=== PATIENT | male | born 1940 | race Caucasian/White ===

== ENCOUNTER → 2018-04-05 12:21 | Outpatient (CLI) | payer MEDICARE, SELFPAY ==
[2018-04-05 13:39] LABS: Absolute Lymphocyte Count 1.04 X10^3/ul (0.83-4.51); Absolute Neutrophil Count 4.7 X10^3/uL (2.0-7.7); Basophil# 0.02 X10^3/uL; Basophil% 0.3 % (0-1); Eosinophil# 0.12 X10^3/uL; Eosinophils% 1.9 % (0-5); Hematocrit 46.3 % (40-54); Hemoglobin 15.1 g/dl (13.0-16.5); Lymphocyte # 1.04 X10^3/ul (4.0); Lymphocyte % 16.3 % (19-41); Mean Corp Hgb Conc 32.6 g/gl (32-36); Mean Corpuscular Hgb 28.6 pg (27.0-32.0); Mean Corpuscular Volume 87.7 fL (80-94); Mean Platelet Vol. 9.7 fl (6.2-12.0); Monocyte# 0.45 X10^3/uL; Monocyte% 7.1 % (0-10); Neutrophil # 4.73 X10^3/uL (2.7-7.7); Neutrophil % 74.2 % (47-70); Platelet Count 211 K/mm3 (150-450); RBC Distribution Width CV 13.8 % (11.6-14.6); RBC Distribution Width SD 44.3 fl (35.1-43.9); Red Blood Count 5.28 M/mm3 (4.6-6.2); White Blood Count 6.4 K/mm3 (4.4-11.0)
[2018-04-05 13:41] LABS: POSITIVE COUNT NO; POSITIVE DIFFERENTIAL NO; POSITIVE MORPHOLOGY NO
[2018-04-05 16:22] LABS: AST(SGOT) 25 U/L (15-37); Alanine Aminotransfer ALT/SGPT 29 U/L (16-61); Albumin, Serum 3.6 g/dL (3.2-5.0); Alkaline Phosphatase 76 U/L (45-117); Anion Gap 9 (5-15); BUN 20 mg/dL (7-18); BUN/Creat Ratio 20.9 RATIO (10-20); Calcium,Total 9.2 mg/dL (8.5-10.1); Chloride 105 mmol/L (98-107); Creatinine, Serum 0.96 mg/dL (0.70-1.30); EST Glomerular Filtration Rate 81 mL/min (>60); Est Glom Filt Rate - Afr Amer 98 mL/min (>60); Globulin 3.5 g/dL (2.2-4.2); Glucose 106 mg/dL (74-106); Potassium 4.4 mmol/L (3.5-5.1); Protein, Total 7.1 g/dL (6.4-8.2); Sodium Level 143 mmol/L (136-145); Thyroid Stim Hormone (TSH) 0.35 uIU/mL (0.358-3.74)
== END ==
PROVIDERS: Visit Provider Family Medicine
DX: R60.9 Edema, unspecified (principal)
CPT/HCPCS: 36415; 80053; 84443; 85025

== ENCOUNTER → 2020-07-16 10:03 | Outpatient (CLI) | payer MEDICARE, OTHER, SELFPAY ==
[2020-07-16 12:33] LABS: Hemoglobin A1c 6.1 % (3.8-5.6)
[2020-07-16 12:49] LABS: Anion Gap 5 (5-15); BUN 26 mg/dL (7-18); BUN/Creat Ratio 25.5 RATIO (10-20); Calcium,Total 9.2 mg/dL (8.5-10.1); Chloride 107 mmol/L (98-107); Cholesterol 205 mg/dL (200); Creatinine, Serum 1.02 mg/dL (0.70-1.30); EST Glomerular Filtration Rate 75 mL/min (>60); Est Glom Filt Rate - Afr Amer 91 mL/min (>60); Glucose 113 mg/dL (74-106); High Density Lipoprotein 48 mg/dL; PSA,Total - Annual Screen 2.67 ng/mL (0.00-4.00); Potassium 3.9 mmol/L (3.5-5.1); Sodium Level 141 mmol/L (136-145); Triglycerides 114 mg/dL; Very Low Density Lipoprotein 23 mg/dL (5-40)
== END ==
PROVIDERS: PCP Family Medicine; Referring Provider Family Medicine; Visit Provider Family Medicine
DX: Z00.00 Encounter for general adult medical examination without abnormal findings (principal); Z12.5 Encounter for screening for malignant neoplasm of prostate; R35.8 Other polyuria
CPT/HCPCS: 36415; 80048; 80061; 83036; 84153; G0103

== ENCOUNTER 2021-09-01 14:53 | Outpatient (CLI) | payer MEDICARE, OTHER, SELFPAY ==
[2021-09-01 18:14] LABS: PSA,Total - Annual Screen 2.71 ng/mL (0.00-4.00)
== END 2021-09-01 23:59 | disposition short-term general hospital (02) ==
LOC: MFPLAB 14:57
PROVIDERS: PCP Family Medicine; Visit Provider Nurse Practitioner Family
DX: Z12.5 Encounter for screening for malignant neoplasm of prostate (principal)
CPT/HCPCS: 36415; 84153; G0103

== ENCOUNTER 2021-12-01 06:49 | Day surgery (SDC) | payer MEDICARE, OTHER, SELFPAY ==
--- NOTE | 2021-11-27 08:49 | EKG12_ITS ---
Test Reason : PREOP Blood Pressure : / mmHG Vent. Rate : 080 BPM Atrial Rate : 080 BPM P-R Int : 200 ms QRS Dur : 108 ms QT Int : 388 ms P-R-T Axes : 089 -15 060 degrees QTc Int : 447 ms Normal sinus rhythm Inferior infarct , age undetermined Abnormal ECG Confirmed by JENNIFER ZELAYA, CHELSEA ([id number]), electronic news gathering editor MELYSSA GÓMEZ ([id number]) on 11/28/2021 11:27:30 AM Referred By: Mary Abernathy Confirmed By:CHELSEA RODRIGUEZ MD
[2021-12-01] VITALS (7 sets, daily range): BP systolic 106–170; BP diastolic 45–82; PULSE 75–81; RESP 15–16; TEMP 36.3–37.1; O2SAT 91–96; BMI 39.6
--- NOTE | 2021-12-01 07:00 | HP.PCM_ITS ---
History and Physical Date of Admission: 12/02/21 EULALIO GIRON, is a 81 M who presents to the office today for a colonoscopy. He is having some diarrhea. Is been going on for approximately 3 months. He is not having any chest pain or shortness of breath. He is not have any nocturnal diarrhea. His weight has been stable. He does get some crampy left lower quadrant discomfort associated with tenesmus that has began slightly better but he still having what 8-10 bowel movements per day. Presents today for evaluation for screening colonoscopy. Unable to pursue open access department due to age. Family history of colon cancer in sister. Last screening colonoscopy performed 2015. States that he has a terrible diet, loves [employer]. Three months ago he developed urgent diarrhea about four times a day with yellow/white with excessive gas. This will last for about a week. He will have one very soft BM and then return to diarrhea. With this he will get nausea without emesis. Denies abnormal odor. Has increased intake of sauerkraut and cabbage, fiber supplement, increased vegetable intake, pepto-bismol; without effect. PCP seen and referred to this office without prior workup. Last colonoscopy 5 years prior. He has had polyps removed each time he has had a colonoscopy but does not recall if they were precancer. Family history includes sister with colon cancer causing . PMH includes prediabetes. Surgical history includes cholecystectomy, total L hip replacement and inguinal hernia repair. ROS Const Constitutional: No anorexia, body ache, chills, excessive sweating, fatigue, fever(s), frequent falls, headache(s), decreased energy, malaise, night sweats, snoring, weakness, weight change, sleep problems, abnormal sleep pattern, change in appetite or other ENT ENT: No headache(s), difficulty swallowing, hoarseness or sore throat Resp Respiratory: No snoring Cardio Cardiology: No chest pain at rest or excessive sweating Gastro GI: No abdominal pain, belching, change in stool character, coffee ground emesis, constipation, cramping, heartburn, difficulty swallowing, feeling full early, excessive flatus, incontinent of stools, Vomiting blood/hematemesis, Blood in stool, loose stools, Black,tarry stools, pain with swallowing, vomiting or other Musc Musculoskeletal: No joint pain Skin Skin: No yellowing of the eye or itchy eyes Neuro Neurology: No weakness, frequent falls or headache(s) Psych Psychiatric: No abnormal sleep pattern and No change in appetite Endo Endocrine: No excessive sweating, fatigue or weight change Aller/Imm Allergy/Immunologic: No itchy eyes Nima/Lymp Hematologic/Lymphatic: No easy bleeding or easy bruising Exam Const General: cooperative and comfortable Nutritional Appearance: average body habitus and well nourished [facility] Head: normal to inspection Ears: hearing grossly normal bilaterally Nose: external nose normal Face and sinus: normal facial exam Mouth: oral mucosae normal Throat: posterior oropharynx normal Eyes General: appearance normal, both eyes and all related structures Neck Neck: normal visual inspection Chest Chest palpation & inspection: normal inspection of the chest and normal palpation of entire chest wall Resp Effort & Inspection: normal respiratory effort Auscultation: Bilateral: Clear to Auscultation Cardio Palpation: normal PMI Rate: regular rate Rhythm: regular rhythm GI Inspection: normal to inspection Auscultation: normal bowel sounds Percussion: normal to percussion Palpation: no hepatosplenomegaly Skin General: no rashes or lesions noted Neuro General: patient alert Extrem General: normal to inspection Psych Affect: normal affect Assessment and Plan Assessment and Plan (1) Diarrhea: Status: Acute Plan - Dr. Sandy Friend, DO: The differential diagnosis for his acute was a diarrhea would be infectious colitis, inflammatory bowel disease, Giardia, ova and parasites, C. difficile, microscopic colitis, collagenous colitis. He will undergo colonoscopy evaluate the lower GI tract. He was explained alternatives, risk, benefits including not withstanding bleeding, infection, sepsis, perforation, need for to . He will have an ASA 3. We will check his stools during the colonoscopy. I have re-examined the patient. There are no clinical changes since date of exam.
[2021-12-01] MEDS: Lactated Ringers 1,000 ML 15 ML IV (07:09)
--- NOTE | 2021-12-01 08:00 | COLBX_PTH ---
PATIENT: EULALIO GIRON LOC: EN U#:[id number] AGE/SX: 81/M ROOM: RE12/01/[address]: Dr. Du Neri DO : 1940 BED: DIS: 12/01/2021 SPEC #: [id number] RECD: 12/01/21 12:45 STATUS: AGUILA REIoana #: [id number] SU: 12/01/21 08:[address]: Du Neri DEPT: SURGICAL PATHOLOGY RECD BY: Jia Clemente ENTERED: 12/01/21 13:14 SP TYPE: COLON BX MADISYN DR: Dr. Mary Abernathy MD Tissues: A - Sigmoid colon biopsy B - Ileum, NOS C - COLON BIOPSY D - Transverse colon Procedures: Surgery Specimen Level IV HEADER OPERATION: Colonoscopy (MAC) PRE-OP DIAGNOSIS: Diarrhea TISSUE SUBMITTED: A ? Sigmoid polyp, B ? Terminal random biopsies, C ? Random colonic biopsies, D ? Transverse polyp MICROSCOPIC DIAGNOSIS A. Sigmoid colon polyp, biopsy: Fragments of tubular adenoma. B. Terminal ileum, biopsy: No pathologic change. C. Random colon biopsy: Focal acute colitis. See comment. D. Transverse colon polyp, biopsy: Tubular adenoma. AM:jay 12/02/2021 COMMENT C. Rare crypt abscess is seen. Clinical correlation is suggested. MICROSCOPIC DESCRIPTION Slides are reviewed. GROSS DESCRIPTION A - Received in fixative is one container labeled with the patient's name and designated polyp sigmoid. The specimen consists of a justice-pink polyp measuring 1.5 x 0.6 x 0.3 cm. The specimen is totally submitted in one cassette. B - Received in fixative is one container labeled with the patient's name and designated terminal ileum random biopsy. The specimen consists of multiple irregular fragments of light justice soft tissue that in aggregate measure 2 x 0.3 x 0.1 cm. The specimen is totally submitted in one cassette. C - Received in fixative is one container labeled with the patient's name and designated random colonic biopsy. The specimen consists of multiple irregular fragments of light justice soft tissue that in aggregate measure 1 x 0.5 x 0.1 cm. The specimen is totally submitted in one cassette. D - Received in fixative is one container labeled with the patient's name and designated transverse colon polyp. The specimen consists of one irregular fragment of light justice soft tissue that measures 0.3 x 0.3 x 0.1 cm. The specimen is totally submitted in one cassette. / SJ:rg 12/01/2021 TC:2 CPT: 83733 x4
--- NOTE | 2021-12-01 08:05 | OP.CCLET_ITS ---
05/21/2022 Mary Abernathy [address] [place] [address] Re : Colonoscopy procedure for Luc Gannon Dear Dr. Abernathy This procedure was performed on Wednesday, December 01, 2021. My impressions and recommendations are as follows: Impressions : - Hemorrhoids found on perianal exam. - Diverticulosis in the recto-sigmoid colon and in the sigmoid colon. - Congested mucosa in the sigmoid colon, in the transverse colon and at the hepatic flexure. Biopsied. - Two 1 to 2 mm polyps in the sigmoid colon and in the transverse colon, removed with a hot snare. Resected and retrieved. - Congested mucosa in the terminal ileum. Biopsied. Recommendations : - Discharge patient to home. - Resume previous diet. - Continue present medications. - Await pathology results. - Repeat colonoscopy in 5 years for surveillance based on pathology results. - Return to GI office. My findings are described in the full procedure note, which is enclosed. If I can be of further assistance, please feel free to contact me at . Sincerely, Du Neri DO 12/01/2021 8:04:45 AM This report has been signed electronically.
--- NOTE | 2021-12-01 08:05 | OP.COLON_ITS ---
Patient Name: Luc Gannon Procedure Date: 12/01/2021 7:25 AM Date of : 1940 Age: 81 Procedure: Colonoscopy Indications: Clinically significant diarrhea of unexplained origin, Follow-up for history of adenomatous polyps in the colon Providers: Du Neri DO Referring MD: Mary Abernathy Medicines: See the Anesthesia note for documentation of the administered medications Patient Profile: This is an 81 year old male. Refer to note in patient chart for documentation of history and physical. Last Colonoscopy: several years ago. Complications: No immediate complications. Procedure: Pre-Anesthesia Assessment: - Prior to the procedure, a History and Physical was performed, and patient medications and allergies were reviewed. The patient is competent. The risks and benefits of the procedure and the sedation options and risks were discussed with the patient. All questions were answered and informed consent was obtained. Patient identification and proposed procedure were verified by the physician in the pre-procedure area. Mental Status Examination: alert and oriented. Airway Examination: normal oropharyngeal airway and neck mobility. Respiratory Examination: clear to auscultation. CV Examination: normal. Prophylactic Antibiotics: The patient does not require prophylactic antibiotics. Prior Anticoagulants: The patient has taken no previous anticoagulant or antiplatelet agents. ASA Grade Assessment: II - A patient with mild systemic disease. After reviewing the risks and benefits, the patient was deemed in satisfactory condition to undergo the procedure. The anesthesia plan was to use moderate sedation / analgesia (conscious sedation). Immediately prior to administration of medications, the patient was re-assessed for adequacy to receive sedatives. The heart rate, respiratory rate, oxygen saturations, blood pressure, adequacy of pulmonary ventilation, and response to care were monitored throughout the procedure. The physical status of the patient was re-assessed after the procedure. After I obtained informed consent, the scope was passed under direct vision. Throughout the procedure, the patient's blood pressure, pulse, and oxygen saturations were monitored continuously. The Colonoscope was introduced through the anus and advanced to the terminal ileum. The terminal ileum, ileocecal valve, appendiceal orifice, and rectum were photographed. Moderate Sedation: Moderate (conscious) sedation was administered by the endoscopy nurse and supervised by the endoscopist. The patient's oxygen saturation, heart rate, blood pressure and response to care were monitored. Total physician intraservice time was 15 minutes. Scope In: 7:40:32 AM Scope Withdrawal Time 0 hours 10 minutes 18 seconds Scope Out: 7:58:42 AM Total Procedure Duration Time 0 hours 18 minutes 10 seconds Findings: Hemorrhoids were found on perianal exam. A few small and large-mouthed diverticula were found in the recto-sigmoid colon and sigmoid colon. An area of mildly congested mucosa was found in the sigmoid colon, in the transverse colon and at the hepatic flexure. This was biopsied with a cold forceps for histology. Verification of patient identification for the specimen was done. Estimated blood loss was minimal. Two sessile polyps were found in the sigmoid colon and transverse colon. The polyps were 1 to 2 mm in size. These polyps were removed with a hot snare. Resection and retrieval were complete. Verification of patient identification for the specimen was done. Estimated blood loss was minimal. A patchy area of the terminal ileum was congested. Biopsies were taken with a cold forceps for histology. Verification of patient identification for the specimen was done. Estimated blood loss was minimal. Impression: - Hemorrhoids found on perianal exam. - Diverticulosis in the recto-sigmoid colon and in the sigmoid colon. - Congested mucosa in the sigmoid colon, in the transverse colon and at the hepatic flexure. Biopsied. - Two 1 to 2 mm polyps in the sigmoid colon and in the transverse colon, removed with a hot snare. Resected and retrieved. - Congested mucosa in the terminal ileum. Biopsied. Recommendation: - Discharge patient to home. - Resume previous diet. - Continue present medications. - Await pathology results. - Repeat colonoscopy in 5 years for surveillance based on pathology results. - Return to GI office. Procedure Code(s): --- Professional --- 55588, Colonoscopy, flexible; with removal of tumor(s), polyp(s), or other lesion(s) by snare technique 85573, 59, Colonoscopy, flexible; with biopsy, single or multiple 06560, 59, Moderate sedation services provided by the same physician or other qualified health animal care supervisor performing the diagnostic or therapeutic service that the sedation supports, requiring the presence of an independent trained observer to assist in the monitoring of the patient's level of consciousness and physiological status; initial 15 minutes of intraservice time, patient age 5 years or older CPT copyright 2017 [employer]. All rights reserved. The codes documented in this report are preliminary and upon machine stemmer review may be revised to meet current compliance requirements. Du Neri DO 12/01/2021 8:04:45 AM This report has been signed electronically. Number of Addenda: 1 Note Initiated On: 12/01/2021 7:25 AM Addendum Number: 1 Addendum Date: 05/21/2022 6:42:03 AM MAC was used as sedation for this procedure. Du Neri DO 05/21/2022 6:42:07 AM This report has been signed electronically.
== END 2021-12-01 23:59 | disposition home or self-care (01) ==
LOC: EN 06:49 → AC 06:50
PROVIDERS: PCP Family Medicine; Referring Provider Family Medicine; Visit Provider Internal Medicine Gastroenterology
PROC: 0DJD8ZZ Inspection of Lower Intestinal Tract, Via Natural or Artificial Opening Endoscopic (ICD-10-PCS; CPT 45378; principal; 2021-12-01 07:55)
DX: D12.3 Benign neoplasm of transverse colon (principal); K52.9 Noninfective gastroenteritis and colitis, unspecified; D12.5 Benign neoplasm of sigmoid colon; Z90.49 Acquired absence of other specified parts of digestive tract; K64.9 Unspecified hemorrhoids; K57.30 Diverticulosis of large intestine without perforation or abscess without bleeding
CPT/HCPCS: 45385; 45380; 88305; 93005; J7120; J2405

== ENCOUNTER → 2021-12-15 | Outpatient (CLI) | payer MEDICARE, OTHER, SELFPAY ==
[2021-12-15 15:42] LABS: Absolute Lymphocyte Count 0.92 X10^3/uL (0.83-4.51); Absolute Neutrophil Count 6.9 X10^3/uL (2.0-7.7); Basophil# 0.04 X10^3/uL; Basophil% 0.5 % (0-1); Eosinophil# 0.18 X10^3/uL; Eosinophils% 2.1 % (0-5); Hematocrit 46.9 % (40-54); Hemoglobin 15.1 g/dL (13.0-16.5); Lymphocyte # 0.92 X10^3/ul (0.83-4.51); Lymphocyte % 10.6 % (19-41); Mean Corp Hgb Conc 32.2 g/dL (32-36); Mean Corpuscular Hgb 28.4 pg (27.0-32.0); Mean Corpuscular Volume 88.2 fL (80-94); Mean Platelet Vol. 9.4 fl (6.2-12.0); Monocyte# 0.54 X10^3/uL; Monocyte% 6.2 % (0-10); NRBC Flagged by Analyzer 0 % (0-5); Neutrophil # 6.94 X10^3/uL (2.7-7.7); Neutrophil % 79.9 % (47-70); Platelet Count 250 K/mm3 (150-450); RBC Distribution Width CV 13.2 % (11.6-14.6); RBC Distribution Width SD 42.9 fl (35.1-43.9); Red Blood Count 5.32 M/mm3 (4.6-6.2); White Blood Count 8.7 K/mm3 (4.4-11.0)
[2021-12-15 16:12] LABS: ALB/GLOB Ratio 1.1 RATIO (0.9-2.4); AST(SGOT) 20 U/L (15-37); Alanine Aminotransfer ALT/SGPT 29 U/L (16-61); Albumin, Serum 3.7 g/dL (3.2-5.0); Alkaline Phosphatase 79 U/L (45-117); Anion Gap 4 (5-15); BUN 18 mg/dL (7-18); BUN/Creat Ratio 18.5 RATIO (10-20); CRP 4.62 mg/L (0.0-3.0); Chloride 108 mmol/L (98-107); Creatinine, Serum 0.97 mg/dL (0.70-1.30); EST Glomerular Filtration Rate 79 mL/min (>60); Est Glom Filt Rate - Afr Amer 95 mL/min (>60); Globulin 3.5 g/dL (2.2-4.2); Glucose 112 mg/dL (74-106); LDH 206 U/L (87-241); PSA,Total- Diagnostic 2.84 ng/mL (0.0-4.0); Potassium 3.9 mmol/L (3.5-5.1); Protein, Total 7.2 g/dL (6.4-8.2); Sodium Level 141 mmol/L (136-145)
[2021-12-15 16:45] LABS: Erythrocyte Sedimentation Rate 29 mm/hr (0-20)
[2021-12-17 13:08] LABS: Anti-Centromere B Ab <0.2 AI (0.0-0.9); Anti-Chromatin <0.2 AI (0.0-0.9); Anti-Jo <0.2 AI (0.0-0.9); Anti-Scleroderma-70 AB <0.2 AI (0.0-0.9); RNP Ab <0.2 AI (0.0-0.9); SJOGREN'S Anti-SS-A test < 0.2 AI (0.0-0.9); SJOGREN'S Anti-SS-B test < 0.2 AI (0.0-0.9); Smith Ab <0.2 AI (0.0-0.9)
[2021-12-17 19:25] LABS: Anti-dsDNA Ab <1 IU/mL (0-9)
[2021-12-24 00:06] LABS: Albumin 3.6 g/dL (2.9-4.4); Alpha-1-Globulins 0.3 g/dL (0.0-0.4); Alpha-2-Globulins 0.8 g/dL (0.4-1.0); Cytoplasmic Ab (C-ANCA) <1:20 titer (Neg:<1:20); Endomysial Antibody IgA Negative (Negative); Gamma Globulin 0.9 g/dL (0.4-1.8); Immunoglobulin A 116 mg/dL (61-437); Immunoglobulin E 54 IU/mL (6-495); Immunoglobulin G 821 mg/dL (603-1613); Immunoglobulin M 160 mg/dL (15-143); PROEL- TOTAL PROTEIN 6.5 g/dL (6.0-8.5)
[2021-12-24 09:54] LABS: Perinuclear Ab (P-ANCA) <1:20 titer (Neg:<1:20); t-Transglutaminase IgA <2 U/mL (0-3)
== END | disposition home or self-care (01) ==
PROVIDERS: PCP Family Medicine; Visit Provider Internal Medicine Gastroenterology
DX: R19.7 Diarrhea, unspecified (principal); N13.9 Obstructive and reflux uropathy, unspecified
CPT/HCPCS: 80053; 82784; 82785; 83516; 83615; 84153; 84165; 85025; 85652; 86140; 86225; 86235; 86255; 86256; 86334

== ENCOUNTER → 2021-12-19 | Outpatient (CLI) | payer MEDICARE, OTHER, SELFPAY ==
--- NOTE | 2021-12-19 09:26 | US_ITS ---
EXAM: US PELVIS TRANSABDOMINAL, COMPLETE CLINICAL INDICATION: dysuria and incontinence TECHNIQUE: Real-time complete pelvic ultrasound with image documentation. This report was created using [employer] report generation technology. COMPARISON: None. FINDINGS: PROSTATE: Unremarkable. SEMINAL VESICLES: Not identified due to lack of a sufficient acoustic window. BLADDER: Prostatomegaly, at least 6.8 cm x 6.6 cm x 6.7 cm with mass effect on the inferior urinary bladder. Bilateral ureteral jets are demonstrated in the urinary bladder, evidence against a high-grade ureter obstruction. The urinary bladder is only mildly distended. Calculated prevoid volume 108 cc, post void volume 15 cc. Mildly thick-walled appearance of the anterior bladder, 5.7 mm, possibly due to incomplete distention. US/Post Void Residual Bladder IMPRESSION: Minimal post void bladder residual. Minimal apparent bladder wall thickening. Prostatomegaly. Electronically Signed: Sharyn Storm MD at 6:04 EDT ,
[2021-12-19 10:04] LABS: Bacteria 0 SEEN /hpf (None Seen); Mucous, Urine 0 SEEN /hpf (<or=2+); Squamous Epithelial Cells - UA 0 SEEN /hpf (0-5); White Blood Cells 0 SEEN /hpf (0-5)
[2021-12-19 10:13] LABS: Color, Urine Yellow (Yellow); Glucose, Dipstick Normal (Normal); Ketone-Dipstick Negative (Negative); Leukocyte Esterase-Dipstick Negative /ul (Negative); Nitrite-Dipstick Negative (Negative); Occult Blood-Urine 10 /ul (Negative); Protein-Dipstick 30 mg/dl (Negative); Specific Gravity, Urine 1.025 (1.002-1.030); Urine Bilirubin Dipstick Negative (Negative); Urine Clarity Clear (Clear); Urine Urobilinogen Normal (Normal)
[2021-12-19 10:43] LABS: Red Blood Cells-Urine 0-5 SEEN /hpf (0-5)
[2021-12-24 17:03] LABS: Calprotectin, Stool 23 ug/g (0-120)
== END | disposition home or self-care (01) ==
PROVIDERS: PCP Family Medicine; Referring Provider Internal Medicine Gastroenterology; Visit Provider Internal Medicine Gastroenterology
DX: R30.0 Dysuria (principal); R19.7 Diarrhea, unspecified
CPT/HCPCS: 51798; 81001; 83630; 83993

== ENCOUNTER → 2022-05-20 | Outpatient (CLI) | payer MEDICARE, OTHER, SELFPAY ==
[2022-05-20 17:46] LABS: Anion Gap 5 (5-15); BUN 19 mg/dL (7-18); BUN/Creat Ratio 21.3 RATIO (10-20); Calcium,Total 9.1 mg/dL (8.5-10.1); Chloride 106 mmol/L (98-107); Creatinine, Serum 0.89 mg/dL (0.70-1.30); EST Glomerular Filtration Rate 87 mL/min (>60); Est Glom Filt Rate - Afr Amer 105 mL/min (>60); Glucose 105 mg/dL (74-106); Potassium 3.9 mmol/L (3.5-5.1); Sodium Level 141 mmol/L (136-145)
[2022-05-20 19:17] LABS: BNP,B-Type NATRIURETIC PEPTIDE 447.4 pg/mL (0-100)
== END | disposition home or self-care (01) ==
LOC: MFPLAB 15:28
PROVIDERS: PCP Family Medicine; Referring Provider Family Medicine; Visit Provider Family Medicine
DX: R60.0 Localized edema (principal); I10 Essential (primary) hypertension
CPT/HCPCS: 36415; 80048; 83880

== ENCOUNTER 2022-05-22 10:32 | Emergency (ER) | payer MEDICARE, OTHER, SELFPAY ==
[2022-05-22 10:33] VITALS: BP 159/73; PULSE 71; RESP 18; TEMP 36.2; O2SAT 97; BMI 39.9
--- NOTE | 2022-05-22 11:00 | EDS_ITS ---
HPI History of Present Illness Chief Complaint: Hypertension Informant: patient Onset/Context/Timing Onset: Days Context: Gradual Onset Timing: Continuous Current Severity: Mild Maximum Severity: Mild Narrative Narrative: 81-year-old male recently diagnosed with hypertension and started on lisinopril 10 mg once a day 2 days ago. He took it yesterday and today. 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 Other than being slightly nauseated he said he feels okay. Denies any headache or chest pain. He had a chemistry panel done within the last 2 days it was unremarkable. Normal creatinine. Prior similar symptoms: Yes Recent Illness/Hospitalization: No PFSH PFSH Medical History Abdominal pain Arthritis Back pain Cardiology follow-up encounter Chest pain History of edema History of pain when walking History of rheumatic fever Non-smoker Shortness of breath on exertion Syncope Wears glasses Home Medications latanoprost 0.005 % eye drops 1 drp EACH EYE QPM 11/26/21 [History Last Taken Unknown] meloxicam 7.5 mg tablet (Mobic) 7.5 mg PO DAILY 11/26/21 [History Last Taken Unknown] multivitamin 1 cap PO DAILY 11/26/21 [History Last Taken Unknown] omega-3 fatty acids-vitamin E 1,000 mg capsule 1 cap PO DAILY 11/26/21 [History Last Taken Unknown] doxycycline hyclate 100 mg capsule 100 mg PO BID 30 days #60 caps 02/27/22 [Rx Last Taken Unknown] Allergy/AdvReac Type Severity Reaction Status Date / Time Penicillins Allergy Rash Verified 05/22/22 10:33 Family History Sister Cancer Mother Brain tumor Other Diabetes Myocardial infarction Surgical History Hx of colonoscopy Hx of hernia repair Hx of total hip arthroplasty Social History Smoking Status: Never smoker ROS ROS ED ROS Narrative Mild nausea. Review of Systems ROS Unobtainable: Denies due to encephalopathy Constitutional Constitutional ED: Denies chills or fever(s) Eyes Eyes: Denies blurry vision ENT ENT ED: Denies ear pain Cardiovascular Cardiovascular: Denies chest pain Respiratory/Chest Respiratory/Chest: Denies cough or dyspnea Gastrointestinal Gastrointestinal: Denies abdominal pain Genitourinary Genitourinary ED: Denies dysuria or hematuria Musculoskeletal Musculoskeletal: Denies arthralgias Integumentary Denies abscess Neurologic Neurologic: Denies headache(s) Psychiatric Psychiatric: Denies anxiety Endocrine Endocrinology: Denies cold intolerance Hematologic/Lymphatic Hematologic/Lymphatic: Reports none Allergic/Immunologic Allergic/Immunologic ED: Denies mouth swelling or tongue swelling EXAM Physical Exam Narrative Exam Narrative: 81-year-old male no acute distress. Vital signs stable afebrile. Initial blood pressure 159/73. Pulse ox 97% room air no signs hypoxia. H EENT exam unremarkable. Neck nontender no JVD. Lungs clear to auscultation. Heart regular rhythm rate about 70 no murmur. Abdomen soft nontender normal bowel sounds no peritoneal signs. Moving all 4 extremities. 1+ pitting edema both lower extremities. Patient states that is chronic. Normal motor strength both upper and lower extremities. Neurologically is awake and alert with no focal motor deficits. Const Vital Signs: 05/22/22 10:33 Temperature 97.2 F L Temperature Source Temporal Pulse Rate 71 Respiratory Rate 18 Blood Pressure 159/73 H Blood Pressure Mean 101 Pulse Ox 97 Oxygen Delivery Method Room Air Positive well nourished, well developed and obese; Negative for cachectic, contractures or unkempt General Appearance ED: well developed and NAD; Negative for unkempt, cachectic, contractures, cyanotic or diaphoretic Nutritional Appearance: obese; Negative for cachectic HEENT Reports moist mucous membranes Negative for trauma or tenderness Eyes PERRL and EOMs intact bilaterally General Eye ED: Negative for pale conjunctiva, scleral icterus or other Neck no lymphadenopathy, supple and no JVD General: Negative for tenderness Lymph Lymphatic: Negative for other Chest Wall inspection of chest normal and palpation of chest normal Chest: Negative for other Resp normal respiratory effort and clear to auscultation bilaterally Effort and Inspection: Negative for retractions Auscultation: Negative for rales, rhonchi or wheezes Cardio regular rate, regular rhythm, S1 normal heart sound, S2 normal heart sound and no murmurs Palpation: Negative for palpable S3 Rate: Negative for bradycardia Rhythm: Negative for abnormal rhythm GI normal to inspection, nondistended, normoactive bowel sounds, non-tender, non- distended and no masses Inspection: Negative for abdominal distention Auscultation: normoactive bowel sounds Palpation: Negative for tender Back/Spine no CVA tenderness General Back: Negative for CVA tenderness Cervical Spine: Negative for cervical spine tenderness Thoracic Spine / Upper Back: Negative for thoracic spinal tenderness Lumbar Spine / Lower Back: Negative for lumbar spinal tenderness Extremity Negative for normal to inspection Extremity Narrative: 1+ pitting edema bilaterally. General Extremety ED: Yes edema; Negative for tenderness General Extremity: edema Neuro oriented x3 and CN's II-XII intact bilaterally Sensorium / Orientation: alert; Negative for orientation impaired, lethargic or stuporous Psych mental status grossly normal Appearance: Negative for unkempt Attitude: No agitated Mood & Affect: Negative for depressed or anxious Skin no rashes or lesions noted and no wounds Lesions: No lesion noted Rashes: No rashes noted Trauma: Negative for abrasion Wounds: Negative for wounds noted MDM MDM MDM Narrative Medical decision making narrative: 81-year-old with acute on recently diagnosed hypertension reportedly is on lisinopril 10 mg a day. He will continue that. He may need to have his dose adjusted. He will follow-up with his primary care physician's office and log his blood pressures. I did review his chemistry panel from 2 days ago was unremarkable. He has an echo pending. Discharge Plan Triage Chief Complaint: Hypertension ED Provider: Ajay Vasquez Dx/Rx/DC Orders Clinical Impression: Hypertension, Edema, peripheral Instructions: ED High Blood Pressure Hypertension Prescriptions: No Action doxycycline hyclate 100 mg capsule 100 mg PO BID 30 Days Qty: 60 1RF latanoprost 0.005 % Drops 1 drp EACH EYE QPM meloxicam [Mobic] 7.5 mg Tablet 7.5 mg PO DAILY multivitamin Capsule 1 cap PO DAILY Fish Oil 1,000 mg Capsule 1 cap PO DAILY Primary Care Provider: Mary Abernathy Referrals: Mary Abernathy MD [Primary Care Provider] - 1 Week Activity Restrictions/Additional Instructions: Continue your blood pressure medication lisinopril as prescribed. If possible log your blood pressures twice a day for the next week. Call your primary care physician's office follow-up within next week. Showed him the blood pressures and they can decide if they need to change or adjust her blood pressure medication they may have to change the dose. Follow-up with your cardiology appointment and your echocardiogram. Disposition Disposition: Home, Self Care
[2022-05-22 11:06] VITALS: BP 165/92; O2SAT 94
[2022-05-22 11:30] VITALS: BP 186/90; PULSE 77; RESP 18; O2SAT 98
== END 2022-05-22 11:31 | disposition home or self-care (01) ==
LOC: ED 11:20
PROVIDERS: Emergency Provider Emergency Medicine; PCP Family Medicine; Visit Provider Emergency Medicine
DX: I10 Essential (primary) hypertension (principal); Z79.899 Other long term (current) drug therapy; E66.9 Obesity, unspecified; R60.0 Localized edema; Z68.39 Body mass index [BMI] 39.0-39.9, adult
CPT/HCPCS: 99282

== ENCOUNTER → 2022-05-28 | Outpatient (CLI) | payer MEDICARE, OTHER, SELFPAY ==
--- NOTE | 2022-05-28 13:54 | ECHOCS_ITS ---
Reason For Study: CHF Procedure This was a 2D Doppler, Color Flow transthoracic echocardiogram. Technically difficult study due to patients body habitus. Contrast injection performed. Exam performed in department. Left Ventricle The left ventricle is normal in size, thickness, and systolic function. The left ventricular ejection fraction is 55 %. Diastolic function is indeterminate. Right Ventricle Mildly dilated right ventricle. Mild to moderate global right ventricular systolic dysfunction. Atria The left and right atria are normal. Mitral Valve Trivial mitral valve insufficiency. Tricuspid Valve Normal tricuspid valve. Aortic Valve Normal aortic valve. Pulmonic Valve The pulmonic valve is not well visualized. Great Vessels Normal sized aortic root. Pericardium/Pleural No pericardial effusion. Medication 20 gauge I.V. with prn adaptor inserted into right arm. Diluted definity 3ml given slow IV push to enhance endocardial definition. MMode/2D Measurements & Calculations LVIDd: 5.2 cm IVSd: 0.89 cm Ao root diam: 3.4 cm LVIDs: 3.3 cm LVPWd: 1.1 cm LA dimension: 4.0 cm FS: 36.8 % LAV(MOD-sp4): 69.5 ml LA A4 area: 22.5 cm2 RA A4 area: 18.9 cm2 Time Measurements MV dec time: 0.26 sec Doppler Measurements & Calculations MV E max rashad: 79.3 cm/sec Lat Peak E' Rashad: 5.9 cm/sec Med Peak E' Rashad: 5.4 cm/sec MV A max rashad: 87.1 cm/sec E/E' lat: 13.5 E/E' med: 14.6 MV E/A: 0.91 MV V2 max: 96.9 cm/sec MV P1/2t max rashad: 95.9 cm/sec Ao V2 max: 153.9 cm/sec MV max P.8 mmHg MV P1/2t: 90.4 msec Ao max P.5 mmHg MV V2 mean: 62.1 cm/sec MV dec slope: 310.8 cm/sec2 Ao V2 mean: 110.1 cm/sec MV mean P.7 mmHg Ao mean P.4 mmHg MV V2 VTI: 27.6 cm MVA(P1/2t): 2.4 cm2 Ao V2 VTI: 32.9 cm LV V1 max: 125.0 cm/sec PA V2 max: 100.8 cm/sec LV V1 max P.3 mmHg ECHO/Echo Complete W/ Contrast Interpretation Summary The left ventricular ejection fraction is 55 %. Diastolic function is indeterminate. Mildly dilated right ventricle. Mild to moderate global right ventricular systolic dysfunction. Ordering Physician: Clifton Perales Referring Physician: Clifton Perales Performed By: Dom Roe RCS
== END | disposition home or self-care (01) ==
LOC: CVS 13:52
PROVIDERS: PCP Family Medicine; Referring Provider Family Medicine; Visit Provider Family Medicine
DX: I50.21 Acute systolic (congestive) heart failure (principal)
CPT/HCPCS: 93306; Q9957; A4216; C8929

== ENCOUNTER → 2023-03-23 | Outpatient (CLI) | payer MEDICARE, OTHER, SELFPAY ==
--- NOTE | 2023-03-23 08:55 | RAD_ITS ---
INDICATION: pain EXAMINATION/TECHNIQUE: X-RAY - LEFT XR Knee Complete 4 Views or More COMPARISON: None. FINDINGS: No acute fracture or malalignment. Moderate to severe, lateral compartment predominant, tricompartmental joint space narrowing and osteophytosis. No joint effusion. Soft tissue swelling of the thigh and leg. RAD/Knee 4 or More Views IMPRESSION: No acute abnormalities. Moderate to severe, lateral compartment predominant, tricompartmental degenerative arthrosis of the knee. Electronically Signed: Flaco Hart MD at 19:19 EDT ,
== END | disposition home or self-care (01) ==
LOC: MTRAD 08:50
PROVIDERS: PCP Family Medicine; Referring Provider Family Medicine; Visit Provider Family Medicine
DX: M25.562 Pain in left knee (principal)
CPT/HCPCS: 73564

== ENCOUNTER → 2023-04-09 | Outpatient (CLI) | payer MEDICARE, OTHER, SELFPAY ==
[2023-04-09 15:52] LABS: Hemoglobin A1c 6.2 % (3.8-5.6)
== END | disposition home or self-care (01) ==
LOC: MFPLAB 12:18
PROVIDERS: PCP Family Medicine; Visit Provider Family Medicine
DX: E11.69 Type 2 diabetes mellitus with other specified complication (principal)
CPT/HCPCS: 36415; 83036

== ENCOUNTER → 2023-04-27 | Outpatient (CLI) | payer MEDICARE, OTHER, SELFPAY ==
[2023-04-27 12:51] LABS: Microalbumin,Random Urine 16.9 mg/L (NO RANGE EST.); Microalbumin:Creatinine Ratio 16.1 mg/g CRE (<30 mg/g CRE)
[2023-04-27 13:06] LABS: AST(SGOT) 16 U/L (15-37); Alanine Aminotransfer ALT/SGPT 24 U/L (16-61); Albumin, Serum 3.8 g/dL (3.2-5.0); Alkaline Phosphatase 69 U/L (45-117); Anion Gap 5 (5-15); BUN 27 mg/dL (7-18); BUN/Creat Ratio 28.3 RATIO (10-20); Bilirubin, Direct 0.13 mg/dL (0.00-0.30); Chloride 106 mmol/L (98-107); Cholesterol 213 mg/dL (200); Creatinine, Serum 0.95 mg/dL (0.70-1.30); EST Glomerular Filtration Rate 80 mL/min (>60); Est Glom Filt Rate - Afr Amer 97 mL/min (>60); Globulin 3.5 g/dL (2.2-4.2); Glucose 115 mg/dL (74-106); High Density Lipoprotein 45 mg/dL; Potassium 4.3 mmol/L (3.5-5.1); Protein, Total 7.3 g/dL (6.4-8.2); Sodium Level 138 mmol/L (136-145); Triglycerides 148 mg/dL; Very Low Density Lipoprotein 30 mg/dL (5-40)
== END | disposition home or self-care (01) ==
LOC: MFPLAB 11:06
PROVIDERS: PCP Family Medicine; Visit Provider Family Medicine
DX: E11.69 Type 2 diabetes mellitus with other specified complication (principal)
CPT/HCPCS: 36415; 80048; 80061; 80076; 82043; 82570

== ENCOUNTER 2023-11-29 06:57 | Day surgery (SDC) | payer MEDICARE, OTHER, SELFPAY ==
--- NOTE | 2023-11-19 15:08 | RAD_ITS ---
EXAM: XR CHEST, 2 VIEWS CLINICAL INDICATION: sob TECHNIQUE: Frontal and lateral views of the chest. COMPARISON: No relevant prior studies available. FINDINGS: LUNGS AND PLEURAL SPACES: Unremarkable. No consolidation or edema. No pneumothorax. No effusion. HEART: Unremarkable. Cardiac silhouette not enlarged. MEDIASTINUM: Central airways and mediastinal contour are unremarkable. BONES/JOINTS: Unremarkable. No acute fracture. SOFT TISSUES: Unremarkable. RAD/Chest PA and Lateral IMPRESSION: No radiographic evidence of acute cardiopulmonary disease. Electronically Signed: David Lawler MD at 23:51 EDT ,
[2023-11-19 16:06] LABS: Absolute Lymphocyte Count 1.61 X10^3/uL (0.83-4.51); Absolute Neutrophil Count 8.7 X10^3/uL (2.0-7.7); Basophil# 0.05 X10^3/uL; Basophil% 0.4 % (0-1); Eosinophil# 0.19 X10^3/uL; Eosinophils% 1.6 % (0-5); Hematocrit 44.4 % (40-54); Hemoglobin 14.1 g/dL (13.0-16.5); Lymphocyte # 1.61 X10^3/ul (0.83-4.51); Lymphocyte % 13.9 % (19-41); Mean Corp Hgb Conc 31.8 g/dL (32-36); Mean Corpuscular Hgb 28.3 pg (27.0-32.0); Mean Platelet Vol. 9.5 fl (6.2-12.0); Monocyte# 0.91 X10^3/uL; Monocyte% 7.8 % (0-10); NRBC Flagged by Analyzer 0 % (0-5); Neutrophil # 8.68 X10^3/uL (2.7-7.7); Neutrophil % 74.9 % (47-70); Platelet Count 286 K/mm3 (150-450); RBC Distribution Width CV 13.9 % (11.6-14.6); RBC Distribution Width SD 44.7 fl (35.1-43.9); Red Blood Count 4.99 M/mm3 (4.6-6.2); White Blood Count 11.6 K/mm3 (4.4-11.0)
[2023-11-19 16:35] LABS: Anion Gap 5 (5-15); BUN 32 mg/dL (7-18); BUN/Creat Ratio 30.8 RATIO (10-20); Chloride 107 mmol/L (98-107); Creatinine, Serum 1.04 mg/dL (0.70-1.30); EST Glomerular Filtration Rate 73 mL/min (>60); Est Glom Filt Rate - Afr Amer 88 mL/min (>60); Glucose 105 mg/dL (74-106); Potassium 4.1 mmol/L (3.5-5.1); Sodium Level 143 mmol/L (136-145)
[2023-11-26 07:40] VITALS: BMI 37.6
--- NOTE | 2023-11-29 08:18 | CL.D_ITS ---
Patient Name: EULALIO GIRON Study Date: 11/29/2023 Performing: Obinna Baltazar MD Ht: 71 inches 180.34 cm : 1940 Wt: 270 lbs 122.47 kg Age: 83 Gender: male BSA: 2.4 PROCEDURE(S) PERFORMED DC01-(27887)LHC/COR/LV CLINICAL PROFILE AND INDICATIONS Indications: Suspected CAD Heart Failure: None Stress/Imaging Stress/Image Study Performed: No CAD Presentations: Stable angina. CONCLUSIONS Non obstructive coronary arteries RECOMMENDATIONS Medical therapy DESCRIPTION OF PROCEDURE The patient arrived to the procedure lab. The risks and benefits of the procedure as well as a full description of our services here and current unavailability of surgical backup were fully explained to the patient and/or their significant other prior to the catheterization. The Timeout was completed, verifying the correct patient and procedure. The patient's procedural site was prepped and draped in the usual fashion. Local anesthetic was given subcutaneously to right radial region with Lidocaine 2%. Using a modified Seldinger technique, arterial access was obtained via the right radial artery, a 6Fr sheath was inserted. Right Coronary Artery selective angiography was then performed in multiple views using a 5 Fr. 4.0 Winthrop catheter. Left Coronary Artery selective angiography was performed in multiple views using a 5 Fr. 4.0 Winthrop catheter. Left Ventriculography was performed in STOCKTON projection using a 5 Fr. Pigtail catheter. LV to AO pullback pressures were then recorded.The arterial sheath was pulled and a TR Band was applied for hemostasis. 10cc air CORONARY ANGIOGRAPHY DOMINANCE: Right Dominant LEFT HEART ASSESSMENT Left Ventricular Ejection Fraction: by LV Gram 55 % Normal LV wall motion Normal Left Ventricular systolic function LEFT MAIN: Angiographically normal LEFT ANTERIOR DESCENDING ARTERY: Mild luminal irregularities less than 30% CIRCUMFLEX ARTERY: Mild luminal irregularities RIGHT CORONARY ARTERY: Mild luminal irregularities less than 30% COMPLICATIONS No Complications PROCEDURE MEDICATIONS Fentanyl 50 mcg IV Versed 1 mg IV Versed 1 mg IV Oxygen: 2 L/min via nasal cannula Aspirin (325mg) 1 Tabs PO @ 11/29/2023 07:22:29 Heparin given IA 11/29/2023 08:01:34 Verapamil 2.5mg, Ntg 100mcgs, 3000 units of Heparin given IA 11/29/2023 08:01:34 SUMMARY OF HEMODYNAMIC DATA Time AIR REST ECG 07:22:51 AO 114/55 (80) SA 08:04:21 LV 115/10, 17 08:11:05 LV 112/11, 16 08:11:11 LV 119/10, 22 08:11:55 LVp 118/12, 21 08:11:59 AOp 121/53 (81) 08:12:04 Signed By Obinna Baltazar MD On 11/29/2023 08:17:58 Obinna Baltazar MD
== END 2023-11-29 10:00 | disposition home or self-care (01) ==
PROVIDERS: PCP Family Medicine; Referring Provider Internal Medicine Cardiovascular Disease; Visit Provider Internal Medicine Cardiovascular Disease
DX: R06.02 Shortness of breath (principal); K50.90 Crohn's disease, unspecified, without complications; I20.9 Angina pectoris, unspecified; Z82.49 Family history of ischemic heart disease and other diseases of the circulatory system; R00.2 Palpitations; R55 Syncope and collapse; R07.9 Chest pain, unspecified; I10 Essential (primary) hypertension; R53.83 Other fatigue
CPT/HCPCS: 36415; 71046; 80048; 85025; 93458; 99152; 99153; J7040; Q9967; C1769; C1894

== ENCOUNTER → 2023-12-21 | Outpatient (CLI) | payer MEDICARE, OTHER, SELFPAY ==
[2023-11-29 07:09] VITALS: BMI 37.6
--- NOTE | 2023-12-21 09:49 | ECHOCS_ITS ---
Reason For Study: Dyspnea/SOB Procedure This was a 2D Doppler, Color Flow transthoracic echocardiogram. The study was technically difficult. Contrast injection was performed. Exam performed in department. Left Ventricle Normal left ventricle. Left ventricular systolic function is normal. The left ventricular ejection fraction is 60 %. No regional wall motion abnormalities noted. Right Ventricle Normal RV size. Normal systolic function. Atria Normal left atrium. Normal right atrium. Mitral Valve Normal mitral valve. Tricuspid Valve Normal tricuspid valve. Mild to moderate (1-2+) tricuspid valve insufficiency. Pulmonary artery systolic pressure is 45 mmHg. Aortic Valve The aortic valve is not well visualized. Pulmonic Valve The pulmonic valve is not well visualized. Great Vessels Normal aortic root. The pulmonary artery is normal size. Normal inferior vena cava. Pericardium/Pleural No pericardial effusion. Medication 22 gauge I.V. with prn adaptor inserted into left arm. Diluted definity 2ml given slow IV push to enhance endocardial definition. MMode/2D Measurements & Calculations LVIDd: 5.2 cm IVSd: 1.1 cm Ao root diam: 3.6 cm LVIDs: 3.9 cm LVPWd: 1.0 cm LA dimension: 3.9 cm FS: 25.4 % LAV(MOD-bp): 57.5 ml LA A4 area: 19.6 cm2 RA A4 area: 21.3 cm2 LAV(MOD-bp) Indexed: 24.0 ml/m2 LAV(MOD-sp2): 64.3 ml LAV(MOD-sp4): 50.9 ml TAPSE: 1.6 cm Time Measurements MV dec time: 0.20 sec Doppler Measurements & Calculations MV E max rashad: 99.0 cm/sec Lat Peak E' Rashad: 7.2 cm/sec Med Peak E' Rashad: 4.7 cm/sec MV A max rashad: 82.0 cm/sec E/E' lat: 13.8 E/E' med: 21.2 MV E/A: 1.2 MV V2 max: 108.1 cm/sec MV P1/2t max rashad: 108.1 cm/sec Ao V2 max: 165.9 cm/sec MV max P.7 mmHg MV P1/2t: 70.7 msec Ao max P.0 mmHg MV V2 mean: 59.6 cm/sec MV dec slope: 447.9 cm/sec2 Ao V2 mean: 113.9 cm/sec MV mean P.7 mmHg MVA(P1/2t): 3.1 cm2 Ao mean P.0 mmHg MV V2 VTI: 35.6 cm Ao V2 VTI: 40.0 cm AV (velocity ratio): 0.83 LV V1 max: 132.8 cm/sec PA V2 max: 128.1 cm/sec TR max rashad: 319.8 cm/sec LV V1 max P.1 mmHg PA V2 mean: 86.7 cm/sec TR max P.9 mmHg LV V1 mean P.3 mmHg LV V1 mean: 98.8 cm/sec LV V1 VTI: 33.3 cm ECHO/Echo Complete W/ Contrast Interpretation Summary Normal left ventricle. Left ventricular systolic function is normal. The left ventricular ejection fraction is 60 %. Pulmonary artery systolic pressure is 45 mmHg. Contrast injection was performed. Ordering Physician: Obinna Baltazar Referring Physician: Mary Abernathy M.D. Performed By: Dom Roe RCS
== END | disposition home or self-care (01) ==
PROVIDERS: PCP Family Medicine; Referring Provider Internal Medicine Cardiovascular Disease; Visit Provider Internal Medicine Cardiovascular Disease
DX: R06.02 Shortness of breath (principal)
CPT/HCPCS: 93306; Q9957; A4216; C8929

== ENCOUNTER → 2024-02-08 | Outpatient (CLI) | payer MEDICARE, OTHER, SELFPAY ==
[2024-02-08 12:46] LABS: Erythrocyte Sedimentation Rate 18 mm/hr (0-20)
[2024-02-08 12:48] LABS: Absolute Lymphocyte Count 0.97 X10^3/uL (0.83-4.51); Absolute Neutrophil Count 4.4 X10^3/uL (2.0-7.7); Basophil# 0.04 X10^3/uL; Basophil% 0.6 % (0-1); Eosinophil# 0.22 X10^3/uL; Eosinophils% 3.4 % (0-5); Hematocrit 38.7 % (40-54); Hemoglobin 12.2 g/dL (13.0-16.5); Lymphocyte # 0.97 X10^3/ul (0.83-4.51); Lymphocyte % 15.2 % (19-41); Mean Corp Hgb Conc 31.5 g/dL (32-36); Mean Corpuscular Hgb 28.4 pg (27.0-32.0); Mean Platelet Vol. 10.2 fl (6.2-12.0); Monocyte# 0.71 X10^3/uL; Monocyte% 11.1 % (0-10); NRBC Flagged by Analyzer 0 % (0-5); Neutrophil # 4.43 X10^3/uL (2.7-7.7); Neutrophil % 69.4 % (47-70); Platelet Count 215 K/mm3 (150-450); RBC Distribution Width CV 13.4 % (11.6-14.6); RBC Distribution Width SD 43.7 fl (35.1-43.9); White Blood Count 6.4 K/mm3 (4.4-11.0)
[2024-02-08 13:32] LABS: Anion Gap 7 (5-15); BUN 26 mg/dL (7-18); BUN/Creat Ratio 28.9 RATIO (10-20); Calcium,Total 9.2 mg/dL (8.5-10.1); Chloride 107 mmol/L (98-107); EST Glomerular Filtration Rate 86 mL/min (>60); Est Glom Filt Rate - Afr Amer 104 mL/min (>60); Glucose 138 mg/dL (74-106); Potassium 4.1 mmol/L (3.5-5.1); Sodium Level 142 mmol/L (136-145); Thyroid Stim Hormone (TSH) 0.01 uIU/mL (0.358-3.74)
[2024-02-08 14:22] LABS: Hemoglobin A1c 6.5 % (3.8-5.6)
== END | disposition home or self-care (01) ==
LOC: MFPLAB 10:52
PROVIDERS: PCP Family Medicine; Visit Provider Family Medicine
DX: E11.69 Type 2 diabetes mellitus with other specified complication (principal); M79.10 Myalgia, unspecified site; R60.0 Localized edema
CPT/HCPCS: 36415; 80048; 83036; 84443; 85025; 85652

== ENCOUNTER → 2024-04-13 | Outpatient (CLI) | payer MEDICARE, OTHER, SELFPAY ==
--- NOTE | 2024-04-13 09:46 | US_ITS ---
STUDY: THYROID ULTRASOUND REASON FOR EXAM: Male, 83 years old. THYROMEGALY TECHNIQUE: Ultrasound evaluation of the thyroid was performed with real-time and static fajardo-scale imaging. COMPARISON: None. FINDINGS: RIGHT LOBE: The right lobe of the thyroid gland measures 5.6 x 3.8 x 3.8 cm. There is a heterogeneous echotexture. There are 4 complex nodules in the right thyroid lobe. Nodule 1 in the anterior end lateral mid thyroid lobe is spongiform. This measures 1.46 x 1.03 x 1.19 cm. Nodule 2 in the posterior inferior thyroid pole is mixed isoechoic and hyperechoic. This measures 2.39 x 2.30 x 2.01 cm. Nodule 3 in the right mid thyroid lobe is also spongiform. This measures 1.31 x 0.81 x 1.18 cm. Nodule 4 in the posterior mid thyroid lobe is hypoechoic. This measures 1.22 x 0.77 x 1.12 cm. LEFT LOBE: The left lobe of the thyroid gland measures 10.0 x 3.1 x 4.7 cm. There is a heterogeneous echotexture. There are 3 solid nodules in the left thyroid lobe. Nodule 1 in the mid thyroid lobe is heterogeneous in echogenicity and predominantly hyperechoic. This measures 3.85 x 2.88 x 2.71 cm. Nodule 2 in the mid thyroid lobe is spongiform. This measures 1.72 x 0.92 x 1.8 cm. Nodule 3 in the mid thyroid lobe is also spongiform. This measures 0.82 x 0.60 x 0.82 cm. ISTHMUS: The isthmus measures 0.8 cm. Heterogeneous complex solid ovoid nodule in the thyroid isthmus measuring 4.27 x 2.32 x 3.44 cm.. US/Thyroid IMPRESSION: 1. 4 solid nodules in the right thyroid lobe, 3 solid nodules in the left thyroid lobe and one solid nodule in the thyroid isthmus. 2. Nodule 1 in the right anterior and lateral mid thyroid lobe is spongiform. This measures 1.46 x 1.03 x 1.19 cm. TI-RADS points: 0. TI-RADS category: TR1. This nodule is benign and no FNA or follow-up is necessary. 3. Nodule 2 in the right posterior inferior thyroid lobe is mixed isoechoic and hyperechoic. This measures 2.39 x 2.30 x 3.01 cm. TI-RADS points: 3. TI-RADS category: TR3. This nodule is mildly suspicious. Recommend FNA evaluation. 4. Nodule 3 in the right mid thyroid lobe is spongiform. This measures 1.31 x 0.81 x 1.18 cm. TI-RADS points: 0. TI-RADS category: TR1. This nodule is benign and no FNA or follow-up is necessary. 5. Nodule 4 in the right posterior mid thyroid lobe is hypoechoic. This measures 1.22 x 0.77 x 1.12 cm. TI-RADS points: 4. TI-RADS category: TR4. This nodule is moderately suspicious. Recommend follow-up thyroid ultrasounds at 1, 2, 3 and 5 years. 6. Nodule 1 in the left mid thyroid lobe is heterogeneous in echogenicity but predominantly hyperechoic. This measures 3.85 x 2.88 x 2.71 cm. TI-RADS points: 6. TI-RADS category: TR4. This nodule is moderately suspicious. Recommend FNA evaluation. 7. Nodule 2 in the left mid thyroid lobe is spongiform. This measures 1.72 x 0.92 x 1.8 cm. TI-RADS points: 0. TI-RADS category: TR1. This nodule is benign and no FNA or follow-up is necessary. 8. Nodule 3 in the left mid thyroid lobe is spongiform. This measures 0.82 x 0.60 x 0.8 cm. TI-RADS points: 0. TI-RADS category: TR1. This nodule is benign and no FNA or follow-up is necessary. 9. Complex heterogeneous solid nodule in the thyroid isthmus measures 4.27 x 2.32 x 3.44 cm. TI-RADS points: 4. TI-RADS category: TR4. This nodule is moderately suspicious. Recommend FNA evaluation. Electronically Signed: Parminder Hwang MD at 16:12 EDT ,
== END | disposition home or self-care (01) ==
LOC: US 09:44
PROVIDERS: PCP Family Medicine
DX: E05.90 Thyrotoxicosis, unspecified without thyrotoxic crisis or storm (principal); E01.0 Iodine-deficiency related diffuse (endemic) goiter
CPT/HCPCS: 76536

== ENCOUNTER → 2024-06-07 | Outpatient (CLI) | payer MEDICARE, OTHER, SELFPAY ==
--- NOTE | 2024-06-07 08:00 | FLU_PTH ---
PATIENT: EULALIO GIRON LOC: [facility] U#:[id number] AGE/SX: 83/M ROOM: RE06/07/[address]: Dr. Pedro Segura MD : 1940 BED: DIS: 06/07/2024 SPEC #: [id number] RECD: 06/07/24 12:21 STATUS: AGUILA DILAN #: [id number] SU: 06/07/24 08:[address]: Pedro Segura DEPT: CYTOLOGY RECD BY: Jia Clemente ENTERED: 06/07/24 12:24 SP TYPE: Fluid OTHR DR: Dr. Mary Abernathy MD Tissues: A - Thyroid isthmus B - Thyroid isthmus C - Thyroid gland, NOS D - Thyroid gland, NOS E - Thyroid gland, NOS F - Thyroid gland, NOS Procedures: Special Stain Group II Surgery Specimen Level IV Cytospin Fluid Cytology Other HEADER OPERATION: Fine needle aspiration of thyroid nodules PRE-OP DIAGNOSIS: Thyroid nodules TISSUE SUBMITTED: A- Isthmic nodule fluid, B- Isthmic nodule slides, C- Left mid thyroid fluid, D- Left mid thyroid slides, E- Right posterior mid thyroid nodule fluid, F- Right posterior mid thyroid nodule slides DIAGNOSIS CYTOLOGY A. Isthmic nodule fluid, fine needle aspiration (cytospin and cellblock): Negative for malignant cells. Rare follicular cells and macrophages are noted. See comment. B. Isthmic nodule, fine needle aspiration (smears): Non-diagnostic specimen, [place] Category I. See comment. C. Left mid thyroid fluid, fine needle aspiration (cytospin and cellblock): Negative for malignant cells. See comment. D. Left mid thyroid, fine needle aspiration (smears): Consistent with benign follicular cells colloid nodule with cystic changes, [place] Category II. Adequate for evaluation. E. Right posterior mid thyroid nodule, fine needle aspiration (cytospin and cellblock): Negative for malignant cells. A few clusters of benign follicular cells are noted See comment. F. Right mid thyroid nodule, fine needle aspiration (smears): Non-diagnostic specimen, [place] Category I. 06/08/2024 COMMENT A, B. The specimen is non-diagnostic due to lack of adequate number of follicular cells. C. The specimen consists of macrophages and colloid. E& F. The specimen is non-diagnostic due to lack of adequate number of follicular cells. Correlation with clinical, radiologic findings and appropriate follow up are necessary. CYTOLOGY STUDY Slides are reviewed. CYTOLOGY GROSS A. Received is 30 ml of dark-red fluid labeled with the patient's name and and designated per the requisition as Isthmic nodule fluid. Submitted for cytology preparation including cell block. B. Received are 4 smears labeled with the patient's name and designated per the requisition as Isthmic nodule. Submitted for staining. C. Received is 30 ml of dark-red cloudy fluid labeled with the patient's name and and designated per the requisition as Left mid thyroid fluid. Submitted for cytology preparation including cell block. D. Received are 4 smears labeled with the patient's name and designated per the requisition as Left mid thyroid nodule. Submitted for staining. E. Received is 30 ml of dark-red cloudy fluid labeled with the patient's name and and designated per the requisition as Right posterior mid thyroid nodule. Submitted for cytology preparation including cell block. F. Received are 4 smears labeled with the patient's name and designated per the requisition as Right posterior mid thyroid nodule. Submitted for staining. 06/07/2024 TC:5 CPT: 83014 x6, 45739 x3
== END | disposition home or self-care (01) ==
PROVIDERS: PCP Family Medicine; Referring Provider Surgery; Visit Provider Surgery
DX: E04.2 Nontoxic multinodular goiter (principal)
CPT/HCPCS: 88108; 88161; 88305; 88313

== ENCOUNTER → 2024-06-23 | Outpatient (CLI) | payer MEDICARE, OTHER, SELFPAY ==
[2024-06-23 13:12] LABS: Hemoglobin A1c 6.5 % (3.8-5.6)
[2024-06-23 13:28] LABS: Anion Gap 6 (5-15); BUN 23 mg/dL (7-18); BUN/Creat Ratio 21.5 RATIO (10-20); Calcium,Total 9.5 mg/dL (8.5-10.1); Chloride 108 mmol/L (98-107); Creatinine, Serum 1.07 mg/dL (0.70-1.30); EST Glomerular Filtration Rate 70 mL/min (>60); Est Glom Filt Rate - Afr Amer 85 mL/min (>60); Free T3 2.6 pg/mL (2.18-3.98); Glucose 149 mg/dL (74-106); Potassium 4.8 mmol/L (3.5-5.1); Sodium Level 142 mmol/L (136-145); T4 Free Direct 0.79 ng/dL (0.76-1.46); Thyroid Stim Hormone (TSH) 0.404 uIU/mL (0.358-3.740)
== END | disposition home or self-care (01) ==
LOC: MTLAB 10:34
PROVIDERS: PCP Family Medicine; Referring Provider Nurse Practitioner Adult Health; Visit Provider Nurse Practitioner Adult Health
DX: E05.90 Thyrotoxicosis, unspecified without thyrotoxic crisis or storm (principal); E01.0 Iodine-deficiency related diffuse (endemic) goiter
CPT/HCPCS: 36415; 80048; 83036; 84439; 84443; 84481

== ENCOUNTER → 2024-07-10 | Outpatient (CLI) | payer MEDICARE, OTHER, SELFPAY ==
--- NOTE | 2024-07-10 13:00 | FLU_PTH ---
PATIENT: EULALIO GIRON LOC: [facility] U#:[id number] AGE/SX: 83/M ROOM: RE07/10/[address]: Dr. Pedro Segura MD : 1940 BED: DIS: 07/10/2024 SPEC #: [id number] RECD: 07/11/24 07:35 STATUS: AGUILA DILAN #: [id number] SU: 07/10/24 13:[address]: Pedro Segura DEPT: CYTOLOGY RECD BY: Jai Clemente ENTERED: 07/11/24 10:12 SP TYPE: Fluid OTHR DR: Dr. Mary Abernathy MD Tissues: A - Thyroid gland, NOS B - Thyroid gland, NOS C - Thyroid isthmus D - Thyroid isthmus Procedures: Special Stain Group II Surgery Specimen Level IV Cytospin Fluid Cytology Other HEADER OPERATION: Fine needle aspiration of thyroid nodules PRE-OP DIAGNOSIS: Thyroid nodules TISSUE SUBMITTED: A- Right thyroid nodule fluid, B- Right thyroid nodule slides, C- Isthmic nodule fluid, D- Isthmus nodule slides DIAGNOSIS CYTOLOGY A. Right thyroid nodule fluid, fine needle aspiration (cytospin and cellblock): Consistent with a benign follicular nodule, [place] Category II. B. Right thyroid nodule, fine needle aspiration (smears): Consistent with a benign follicular nodule, [place] Category II. C. Isthmic nodule fluid, fine needle aspiration (cytospin and cellblock): Consistent with a benign follicular nodule, [place] Category II. D. Isthmus nodule, fine needle aspiration (smears): Consistent with a benign follicular nodule, [place] Category II. FA. 07/12/2024 COMMENT Material is adequate for evaluation. No malignant cells are identified. Case has been reviewed in consultation with Dr. Noland who concurs with the above diagnosis. IDC:[facility] CYTOLOGY STUDY Slides are reviewed. CYTOLOGY GROSS A. Received is 30 ml of red-cloudy fluid labeled with the patient's name and and designated per the requisition as Right thyroid nodule. Submitted for cytology preparation including cell block. B. Received are 4 smears labeled with the patient's name and designated per the requisition as Right thyroid nodule. Submitted for staining. C. Received is 20 ml of red-cloudy fluid labeled with the patient's name and and designated per the requisition as Isthmic nodule. Submitted for cytology preparation including cell block. D. Received are 4 smears labeled with the patient's name and designated per the requisition as Isthmic nodule. Submitted for staining. Mr 07/11/2024 TC:? CPT: 84471m1,57148h1
== END | disposition home or self-care (01) ==
LOC: LABSPEC 07-11 08:21
PROVIDERS: PCP Family Medicine; Referring Provider Surgery; Visit Provider Surgery
DX: E04.1 Nontoxic single thyroid nodule (principal)
CPT/HCPCS: 88108; 88161; 88305; 88313

== ENCOUNTER → 2024-11-07 | Outpatient (CLI) | payer MEDICARE, OTHER, SELFPAY ==
--- NOTE | 2024-11-07 10:16 | RAD_ITS ---
EXAM: XR Bilateral Hips With Pelvis When Performed, 2 or 3 Views CLINICAL INDICATION: PAIN TECHNIQUE: Three or four views of the bilateral hips with pelvis when performed. COMPARISON: No relevant prior studies available. FINDINGS: BONES/JOINTS: Left hip replacement. Intact hardware. Anatomic position. Mild degenerative change of the right hip joint. No acute fracture. No dislocation. SOFT TISSUES: Unremarkable. RAD/Hips B/L min 2 views w/ Pelvis IMPRESSION: 1. Postoperative changes as above. 2. Degenerative changes as above. Reading Location: [facility]
== END | disposition home or self-care (01) ==
PROVIDERS: PCP Family Medicine; Referring Provider Family Medicine; Visit Provider Family Medicine
DX: M16.9 Osteoarthritis of hip, unspecified (principal)
CPT/HCPCS: 73521

== ENCOUNTER → 2024-11-24 | Outpatient (CLI) | payer MEDICARE, OTHER, SELFPAY ==
[2024-11-24 18:10] LABS: ALB/GLOB Ratio 1.6 RATIO (0.9-2.4); AST(SGOT) 18 U/L (<=37); Alanine Aminotransfer ALT/SGPT 19 U/L (<=46); Albumin, Serum 4.1 g/dL (3.4-4.8); Alkaline Phosphatase 87 U/L (40-129); Anion Gap 9 (5-15); BUN 43 mg/dL (4-19); BUN/Creat Ratio 32.4 RATIO (10-20); Calcium,Total 9.4 mg/dL (7.6-11.0); Carbon Dioxide 25.2 mmol/L (21.0-32.0); Chloride 106 mmol/L (98-108); Creatinine, Serum 1.31 mg/dL (0.70-1.20); EST Glomerular Filtration Rate 54 (>60); Free T3 2.9 pg/mL (2.18-3.98); Globulin 2.6 g/dL (2.2-4.2); Glucose 125 mg/dL (70-99); Hemoglobin A1c 6.9 % (<=5.6); Potassium 5.1 mmol/L (3.3-5.1); Protein, Total 6.7 g/dL (5.9-8.4); Sodium Level 141 mmol/L (133-145); Thyroid Stim Hormone (TSH) 0.241 uIU/mL (0.300-4.200)
== END | disposition home or self-care (01) ==
LOC: LAB 16:51
PROVIDERS: PCP Family Medicine; Referring Provider Nurse Practitioner Adult Health; Visit Provider Nurse Practitioner Adult Health
DX: E05.90 Thyrotoxicosis, unspecified without thyrotoxic crisis or storm (principal); E01.0 Iodine-deficiency related diffuse (endemic) goiter
CPT/HCPCS: 36415; 80053; 83036; 84439; 84443; 84481

== ENCOUNTER → 2024-12-01 | Outpatient (CLI) | payer MEDICARE, OTHER, SELFPAY ==
--- NOTE | 2024-12-01 15:23 | US_ITS ---
PROCEDURE: TESTICULAR WITH ARTERIAL FLOW 12/01/2024 REASON FOR EXAM: RIGHT SCROTAL SWELLING TECHNIQUE: Samson scale imaging and color and spectral Doppler analysis of the scrotal contents. COMPARISON: None. FINDINGS: RIGHT testicle: 2.6 x 2.3 x 1.1 cm Homogeneous echotexture. No intratesticular mass. No hydrocele or large varicocele. Right epididymis: Unremarkable LEFT testicle: 2.5 x 2.1 x 1.4 cm Homogeneous echotexture. No intratesticular mass. No hydrocele or large varicocele. Left epididymis: Unremarkable DOPPLER FINDINGS: Symmetric color doppler blood flow signal at both testes. Normal arterial inflow and venous outflow waveforms at both testes. US/Testicular with Arterial Flow IMPRESSION: No ultrasound evidence of testicular torsion. No intratesticular mass. Visual ization of the adjacent tissues is limited. If concern for cutaneous/subcutaneous edema or mass, recommend evaluation with foc used ultrasound. Reading Location: [id number]
== END | disposition home or self-care (01) ==
LOC: US 15:23
PROVIDERS: PCP Family Medicine; Referring Provider Family Medicine; Visit Provider Family Medicine
DX: N50.89 Other specified disorders of the male genital organs (principal)
CPT/HCPCS: 76870; 93976

== ENCOUNTER → 2025-01-04 | Outpatient (CLI) | payer MEDICARE, OTHER, SELFPAY ==
[2025-01-04 15:14] LABS: Absolute Lymphocyte Count 0.54 X10^3/uL (0.83-4.51); Absolute Neutrophil Count 9.3 X10^3/uL (2.0-7.7); Basophil# 0.04 X10^3/uL; Basophil% 0.4 % (0-1); Eosinophil# 0.18 X10^3/uL; Eosinophils% 1.6 % (0-5); Hematocrit 35.4 % (40-54); Hemoglobin 11.3 g/dL (13.0-16.5); Lymphocyte # 0.54 X10^3/ul (0.83-4.51); Lymphocyte % 4.9 % (19-41); Mean Corp Hgb Conc 31.9 g/dL (32-36); Mean Corpuscular Hgb 29.3 pg (27.0-32.0); Mean Corpuscular Volume 91.7 fL (80-94); Mean Platelet Vol. 9.4 fl (6.2-12.0); Monocyte# 0.83 X10^3/uL; Monocyte% 7.6 % (0-10); NRBC Flagged by Analyzer 0 % (0-5); Neutrophil # 9.27 X10^3/uL (2.7-7.7); Neutrophil % 84.4 % (47-70); POSITIVE DIFFERENTIAL YES; Platelet Count 282 K/mm3 (150-450); RBC Distribution Width CV 13.4 % (11.6-14.6); RBC Distribution Width SD 45.3 fl (35.1-43.9); Red Blood Count 3.86 M/mm3 (4.6-6.2)
[2025-01-04 16:46] LABS: ALB/GLOB Ratio 1.3 RATIO (0.9-2.4); AST(SGOT) 22 U/L (<=37); Alanine Aminotransfer ALT/SGPT 23 U/L (<=46); Albumin, Serum 3.5 g/dL (3.4-4.8); Alkaline Phosphatase 72 U/L (40-129); Anion Gap 12 (5-15); BUN 43 mg/dL (4-19); BUN/Creat Ratio 38.4 RATIO (10-20); Calcium,Total 9.1 mg/dL (7.6-11.0); Carbon Dioxide 22.6 mmol/L (21.0-32.0); Chloride 102 mmol/L (98-108); Cholesterol 119 mg/dL (<=200); Creatinine, Serum 1.11 mg/dL (0.70-1.20); EST Glomerular Filtration Rate 66 (>60); Globulin 2.8 g/dL (2.2-4.2); Glucose 120 mg/dL (70-99); High Density Lipoprotein 47 mg/dL; Low Density Lipoprotein Calc. 46 mg/dL; Magnesium 2.4 mg/dL (1.5-2.2); Potassium 4.8 mmol/L (3.3-5.1); Protein, Total 6.3 g/dL (5.9-8.4); Sodium Level 137 mmol/L (133-145); Thyroid Stim Hormone (TSH) 0.362 uIU/mL (0.300-4.200); Total Bilirubin 0.45 mg/dL (0.00-1.30); Triglycerides 133 mg/dL; Very Low Density Lipoprotein 27 mg/dL (5-40); Vitamin B12 490 pg/mL (180-914); cholesterol:hdl ratio screen 2.55
[2025-01-05 09:35] LABS: Iron 52 ug/dL (65-175); Iron Binding Capacity,Unsat 179 ug/dL (228-428)
[2025-01-05 10:58] LABS: Iron Binding Capacity,Total 231 ug/dL (250-450); PERCENT IRON SATURATION 22.5 % (9-55)
== END | disposition home or self-care (01) ==
LOC: MFPLAB 12:05
PROVIDERS: PCP Family Medicine; Referring Provider Family Medicine; Visit Provider Family Medicine
DX: E06.3 Autoimmune thyroiditis (principal); R53.83 Other fatigue; E87.5 Hyperkalemia
CPT/HCPCS: 36415; 80053; 80061; 82306; 82607; 83540; 83550; 83735; 84432; 84439; 84443; 85025; 86376; 86800

== ENCOUNTER 2025-01-05 16:34 | Emergency (ER) | payer MEDICARE, OTHER, SELFPAY ==
[2025-01-05 16:35] VITALS: BP 136/57; PULSE 81; RESP 18; TEMP 36.9; O2SAT 95; BMI 39.7
--- NOTE | 2025-01-05 16:39 | ED.VIS.DYS ---
HPI History of Present Illness Chief Complaint: Shortness of Breath [facility] Medical History Thyroid nodule Palpitations Crohn disease Arthritis Back pain Syncope Abdominal pain Shortness of breath on exertion History of pain when walking History of edema Chest pain History of rheumatic fever Home Medications ?Medication ?Instructions ?Recorded ?Last Taken ?Type latanoprost 0.005 % eye drops 1 drp EACH EYE QPM 11/26/21 Unknown History Held on 01/05/25. Instructions: MD Ordered furosemide 20 mg tablet 20 mg PO DAILY #30 tabs 12/23/23 01/05/25 Rx aspirin 81 mg tablet,delayed 81 mg PO BID 06/07/24 01/05/25 History release (Adult Aspirin Regimen) metoprolol succinate 50 mg 50 mg PO DAILY #90 TABLETS 08/18/24 01/05/25 Rx tablet,extended release 24 hr lisinopril 20 mg tablet 20 mg PO DAILY #90 TABLETS 09/12/24 01/04/25 Rx acetaminophen 500 mg tablet 1,000 mg PO Q6H PRN fever or pain 01/05/25 01/05/25 History cholecalciferol (vitamin D3) 25 50 mcg PO DAILY 01/05/25 01/05/25 History mcg (1,000 unit) capsule (Vitamin D3) furosemide 40 mg tablet (Lasix) 40 mg PO DAILY 7 days #7 tabs 01/05/25 Unknown Rx magnesium oxide 400 mg (241.3 mg 400 mg PO TID 01/05/25 01/05/25 History magnesium) tablet meloxicam 7.5 mg tablet 7.5 mg PO BID 01/05/25 01/05/25 History metformin 500 mg tablet,extended 500 mg PO QHS 01/05/25 01/04/25 History release 24 hr rosuvastatin 20 mg tablet 20 mg PO QHS 01/05/25 01/04/25 History tamsulosin 0.4 mg capsule 0.4 mg PO DAILY 01/05/25 01/05/25 History Allergy/AdvReac Type Severity Reaction Status Date / Time Penicillins Allergy Rash Verified 01/05/25 16:34 Family History Sister Cancer Heart disease Mother Brain tumor Father Myocardial infarction Son Heart disease Other Diabetes Surgical History History of cholecystectomy Hx of colonoscopy Hx of total hip arthroplasty Hx of hernia repair Social History Smoking Status: Never smoker alcohol intake: current alcohol intake frequency: holidays/special occasions only EXAM Physical Exam Const Vital Signs: 01/05/25 16:35 01/05/25 17:16 01/05/25 17:16 Temperature 98.4 F Temperature Source Oral Pulse Rate 81 Respiratory Rate 18 Respiratory Effort Short of Breath Respiratory Depth Shallow Respiratory Pattern Tachypnea Blood Pressure 136/57 H Blood Pressure Mean 83 Pulse Ox 95 Oxygen Delivery Method Room Air Room Air 01/05/25 18:27 01/05/25 19:52 01/05/25 20:27 Temperature 98.4 F Temperature Source Pulse Rate 87 70 Respiratory Rate 18 18 Respiratory Effort Respiratory Depth Respiratory Pattern Blood Pressure 124/51 H 135/67 H Blood Pressure Mean 75 89 Pulse Ox 97 95 95 Oxygen Delivery Method Room Air Room Air MDM MDM MDM Narrative Medical decision making narrative: HISTORY OF PRESENT ILLNESS: Chief complaint: Shortness of 84-year-old male history of Crohn disease, hypertension, presents with shortness of breath at physical therapy status post hip replacement. He notes he was on the treadmill for proxy 9 minutes exerted himself vigorously. He notes he became short of breath at the end of this exercise. He notes no shortness of breath associate with his ADLs. He presents to the emergency department primarily concerned about a blood clot. Denies chest pain. Denies bleeding diathesis. Denies unilateral leg swelling. Denies cough fever chills denies history of blood clots. Denies any other PE risk factors other than recent surgery. REVIEW OF SYSTEMS: Pertinent positives: Shortness of breath Pertinent negatives: Cough, chest pain, syncope PHYSICAL EXAM: Nursing triage notes reviewed, Vital signs reviewed Constitutional: please see mdm HENT: MMM Eyes: Pupils equal round and reactive to light, Extraocular muscles intact Neck: No stridor, no JVD, full neck ROM Lungs: Clear to auscultation, No wheezing or rales. No increased work of breathing, no conversational dyspnea, no accessory muscle use, no nasal flaring. No respiratory distress noted Heart: Regular rate and rhythm, No murmurs, No rubs and No gallops, 2+ distal pulses (radial, femoral, posterior tibial) in all extremities Abdomen: Soft, there is no tenderness, rigidity, rebound or guarding, no obvious peritoneal signs, no palpable pulsatile abdominal masses, no auscultated abdominal bruit : No CVAT Extremities: Trace bilateral lower extremity edema. Right hip surgical site appears clean dry intact with no fluctuance, induration, crepitus bullae or significant tenderness to palpation. No palpable warmth. Neuro: No new focal neurological deficits, cranial nerves II through XII intact, 5/5 strength in all present extremities. Intact sensation to light touch in all present extremities, 2+ reflexes bilateral patella tendons. Skin: No rash or lesions noted MEDICAL DECISION MAKING: Chief Complaint: please see HPI External records reviewed: Reviewed prior imaging studies: Reviewed echocardiogram from 2023 which showed ejection fraction 60% Factors affecting care: none Social determinants of health: none History obtained from others: none Consults: none MDM Narrative: Patient was initially hemodynamically stable, nontoxic-appearing. Exam with clear lungs. Patient was saturating well on room air he is in no respiratory distress I considered the following differential diagnosis: PE, anemia, electrolyte abnormality, ACS, arrhythmia I obtained a broad lab and imaging workup to further elucidate etiology of patient's complaints ALL IMAGES (IF OBTAINED) HAVE BEEN PERSONALLY REVIEWED AND INTERPRETED BY MYSELF. CT of the chest shows no evidence of PE or signs of pulmonary edema or heart failure BNP borderline elevated consistent with increased ventricular stretch Ambulatory pulse ox without exertional hypoxia CBC with no leukocytosis, mild anemia, no thrombocytopenia BMP without evidence of significant electrolyte abnormalities, no anion gap, no acute kidney injury. High-sensitivity troponin is negative, no evidence of myocardial ischemia x2 The synthesis of the patient's history, physical exam, labs and images suggest no acute life-limiting etiology. Despite having slightly elevated BNP he had no physical exam evidence of heart failure including no rales, no hypoxia with exertion. His troponin levels were negative and his EKG did not show signs of arrhythmia or myocardial ischemia. In addition to this his CTA of chest showed no evidence of pulmonary edema. He is already on Lasix. I thought it was safe to increase his Lasix from 20 mg to 40 mg and follow-up his primary care physician for outpatient echocardiogram. The patient and/or family, caregivers express understanding. The patient and/or family, caregivers agrees with the plan. Shared decision making: I will have a discussion with the patient and or visitors regarding risk/benefits of further testing or admission. They will be made aware of of the risk/benefits inherent in this decision they will be given the opportunity to voice understanding. Total critical care time today provided was at least 0 minutes. This excludes separately billable procedures. Critical care time (if documented) is secondary to the patient having high probability of clinically significant/life threatening deterioration in the patient's condition which required my urgent intervention. Impression: 1. Dyspnea 2. Status post right hip arthroplasty Dispo: Discharge home This note was generated with [employer] dictation software. It may contain incorrect words, spelling, and punctuation that were not noted in review of the chart prior to signing. Lab Data Labs: Laboratory Results - last 24 hr 01/05/25 01/05/25 17:09 19:20 WBC 9.4 RBC 3.62 L Hgb 10.8 L Hct 32.4 L MCV 89.5 MCH 29.8 MCHC 33.3 RDW Std Deviation 43.9 RDW Coeff of Robert 13.3 Plt Count 252 MPV 8.8 Immature Gran % (Auto) 1.200 H Neut % (Auto) 79.6 H Lymph % (Auto) 7.2 L [place] % (Auto) 9.7 Eos % (Auto) 1.8 Baso % (Auto) 0.5 Absolute Neuts (auto) 7.4 Absolute Lymphs (auto) 0.67 L Nucleated RBC % 0 Sodium 136 Potassium 5.0 Chloride 102 Carbon Dioxide 23.7 Anion Gap 11 BUN 38 H Creatinine 1.07 Estim Creat Clear Calc 71.69 Est GFR (MDRD) Non-Af 69 BUN/Creatinine Ratio 35.6 H Glucose 107 H Calcium 9.1 Troponin T High Sens 37 H Troponin T Hi Sens 2 Hr 35 H NT pro BNP II 1924 H Radiography Diagnostic Testing: Clinical Impression(s) from Imaging Studies Chest CTA 01/05/25 16:50 IMPRESSION: No evidence of pulmonary embolism or acute findings in the thorax. [facility] Dis[facility] Triage Chief Complaint: Shortness of Breath ED Provider: Modesto Carbajal Dx/Rx/DC Orders Clinical Impression: Shortness of breath on exertion Instructions: ED Dyspnea Prescriptions: New furosemide [Lasix] 40 mg tablet 40 mg PO DAILY 7 Days Qty: 7 0RF No Action aspirin [Adult Aspirin Regimen] 81 mg tablet,delayed release (DR/EC) 81 mg PO BID latanoprost 0.005 % Drops 1 drp EACH EYE QPM magnesium oxide 400 mg (241.3 mg magnesium) tablet 400 mg PO TID meloxicam 7.5 mg tablet 7.5 mg PO BID metformin 500 mg tablet extended release 24 hr 500 mg PO QHS rosuvastatin 20 mg tablet 20 mg PO QHS tamsulosin 0.4 mg capsule 0.4 mg PO DAILY cholecalciferol (vitamin D3) [Vitamin D3] 25 mcg (1,000 unit) capsule 50 mcg PO DAILY acetaminophen 500 mg tablet 1,000 mg PO Q6H PRN (Reason: fever or pain) furosemide 20 mg tablet 20 mg PO DAILY Qty: 30 11RF metoprolol succinate 50 mg tablet extended release 24 hr 50 mg PO DAILY Qty: 90 3RF lisinopril 20 mg tablet 20 mg PO DAILY Qty: 90 3RF Primary Care Provider: Dejuan Sanders Referrals: Dejuan Sanders MD [Primary Care Provider] - Activity Restrictions/Additional Instructions: Thank you for trusting us with your care today! Your labs images were reassuring. Specifically your CT scan does not show evidence of a blood clot in the lung. There is no sign of significant electrolyte abnormalities, anemia, pneumonia. The cause your symptoms remains unclear and may be related to deconditioning after surgery. I have increased your Lasix from 20 mg to 40 mg hopefully help with leg swelling. I prescribe a 7-day course of this additional Lasix. Please take 40 mg daily for the next 7 days and follow your primary care physician for outpatient valuation and possible echocardiogram. Please take Tylenol (2 pills, 650 mg), ibuprofen (2 pills, 400 mg) every 6 hours as needed for pain and fever control. Please return to the emergency department if your symptoms change or worsen. Please follow with your primary care physician for further outpatient evaluation and management. Print Language: Slovenian Disposition Disposition: Home, Self Care Discharge Date/Time: 01/05/25 20:34
--- NOTE | 2025-01-05 16:50 | CT_ITS ---
PROCEDURE: CTA CHEST W/WO CONTRAST 01/05/2025 REASON FOR EXAM: SOB, RECENT SURGERY R/O PE TECHNIQUE: CTA axial imaging of the chest with intravenous contrast. Multiplanar and multisequence images were obtained. PATIENT PREPARATION: Per protocol One or more dose reduction techniques were used (e.g., Automated exposure control, adjustment of the mA and/or kV according to patient size, use of iterative reconstruction technique). CONTRAST: Omnipaque 350 VOLUME: 100 mL Not Provided Gauge IV COMPARISON: None FINDINGS: Hardware: None Lymph nodes: Benign granulomatous calcifications. Heart: Normal cardiac size. Mild significant coronary artery calcifications. No pericardial effusion. Thoracic Aorta: Mild atherosclerotic calcification of the thoracic aorta. Normal thoracic aorta caliber Pulmonary Vessels: No large central pulmonary emboli are identified. Contrast timing is suboptimal for evaluation of more distal branches. Most Proximal Level of Embolus (if embolus present): None Lungs and Airways: Central airways are patent without endobronchial lesions. Patchy opacities in the lung base, compatible with scarring and atelectasis. No focal consolidation. No pneumothorax. No pleural effusion. A few scattered calcified granulomas. Upper Abdomen: Visualized portions of the upper abdominal viscera are unremarkable. Bones: Degenerative changes of the thoracic spine. Chest wall or mediastinum. Heterogeneously enlarged multinodular goiter. Chest wall is otherwise unremarkable. CT/CTA Chest W/WO Contrast IMPRESSION: No evidence of pulmonary embolism or acute findings in the thorax. Reading [facility]
--- NOTE | 2025-01-05 16:50 | EKG12_ITS ---
Test Reason : SOB Blood Pressure : */* mmHG Vent. Rate : 77 BPM Atrial Rate : 77 BPM P-R Int : 196 ms QRS Dur : 106 ms QT Int : 412 ms P-R-T Axes : 73 -10 58 degrees QTcB Int : 466 ms Normal sinus rhythm Lateral infarct , age undetermined Cannot rule out Inferior infarct (cited on or before 27-Nov-2021) Abnormal ECG Confirmed by JENNIFER ZELAYA, CHELSEA ([id number]), supervising editor trailer MELYSSA GÓMEZ ([id number]) on 01/08/2025 8:49:03 AM Referred By: Confirmed By: CHELSEA RODRIGUEZ MD
[2025-01-05 17:22] LABS: Absolute Lymphocyte Count 0.67 X10^3/uL (0.83-4.51); Absolute Neutrophil Count 7.4 X10^3/uL (2.0-7.7); Basophil# 0.05 X10^3/uL; Basophil% 0.5 % (0-1); Eosinophil# 0.17 X10^3/uL; Eosinophils% 1.8 % (0-5); Hematocrit 32.4 % (40-54); Hemoglobin 10.8 g/dL (13.0-16.5); Lymphocyte # 0.67 X10^3/ul (0.83-4.51); Lymphocyte % 7.2 % (19-41); Mean Corp Hgb Conc 33.3 g/dL (32-36); Mean Corpuscular Hgb 29.8 pg (27.0-32.0); Mean Corpuscular Volume 89.5 fL (80-94); Mean Platelet Vol. 8.8 fl (6.2-12.0); Monocyte# 0.91 X10^3/uL; Monocyte% 9.7 % (0-10); NRBC Flagged by Analyzer 0 % (0-5); Neutrophil # 7.44 X10^3/uL (2.7-7.7); Neutrophil % 79.6 % (47-70); Platelet Count 252 K/mm3 (150-450); RBC Distribution Width CV 13.3 % (11.6-14.6); RBC Distribution Width SD 43.9 fl (35.1-43.9); Red Blood Count 3.62 M/mm3 (4.6-6.2); White Blood Count 9.4 K/mm3 (4.4-11.0)
[2025-01-05 18:19] LABS: Anion Gap 11 (5-15); BUN 38 mg/dL (4-19); BUN/Creat Ratio 35.6 RATIO (10-20); Calcium,Total 9.1 mg/dL (7.6-11.0); Carbon Dioxide 23.7 mmol/L (21.0-32.0); Chloride 102 mmol/L (98-108); Creatinine, Serum 1.07 mg/dL (0.70-1.20); EST Glomerular Filtration Rate 69 (>60); Estimated Creatinine Clearance 71.69 ml/min (50-250); Glucose 107 mg/dL (70-99); Pro- Brain NATRIURETIC PEPTIDE 1924 pg/mL (<=1800); Sodium Level 136 mmol/L (133-145); Troponin T High Sensitivity 37 ng/L (<=22)
[2025-01-05 18:27] VITALS: BP 124/51; PULSE 87; RESP 18; O2SAT 97
[2025-01-05 19:51] VITALS: O2SAT 96
[2025-01-05 19:52] VITALS: O2SAT 95
[2025-01-05 20:01] LABS: Troponin T High Sens 2 HR 35 ng/L (<=22)
[2025-01-05 20:27] VITALS: BP 135/67; PULSE 70; RESP 18; TEMP 36.9; O2SAT 95
== END 2025-01-05 20:34 | disposition home or self-care (01) ==
PROVIDERS: Emergency Provider Emergency Medicine; PCP Family Medicine; Visit Provider Emergency Medicine
DX: I10 Essential (primary) hypertension (principal); Z90.49 Acquired absence of other specified parts of digestive tract; Z96.649 Presence of unspecified artificial hip joint; Z79.899 Other long term (current) drug therapy; R06.02 Shortness of breath
CPT/HCPCS: 71275; 80048; 83880; 84484; 85025; 93005; 99283; Q9967; A4216

== ENCOUNTER → 2025-01-25 | Outpatient (CLI) | payer MEDICARE, OTHER, SELFPAY ==
[2025-01-25 15:56] LABS: Hemoglobin A1c 6.5 % (<=5.6)
[2025-01-25 15:59] LABS: Pro- Brain NATRIURETIC PEPTIDE 3483 pg/mL (<=1800)
[2025-01-25 17:05] LABS: Microalbumin,Random Urine < 12.0 mg/L (NO RANGE EST.); Microalbumin:Creatinine Ratio UNABLE TO CALCULATE mg/g CRE
== END | disposition home or self-care (01) ==
LOC: MFPLAB 11:53
PROVIDERS: PCP Family Medicine; Referring Provider Family Medicine; Visit Provider Family Medicine
DX: E11.8 Type 2 diabetes mellitus with unspecified complications (principal)
CPT/HCPCS: 36415; 82043; 82570; 83036; 83880

== ENCOUNTER → 2025-02-08 | Outpatient (CLI) | payer MEDICARE, OTHER, SELFPAY ==
--- NOTE | 2025-02-08 07:03 | ECHOCS_ITS ---
Reason For Study : SOB Procedure This was a 2D Doppler, Color Flow transthoracic echocardiogram. The study was technically difficult. Due to body habitus. Contrast injection was performed. Exam performed in department. Left Ventricle Normal LV size. The left ventricular ejection fraction is 55 %. Stage 1 diastolic dysfunction. No regional wall motion abnormalities noted. Right Ventricle Normal RV size. Normal systolic function. Atria Normal left atrium. Normal right atrium. Mitral Valve Normal mitral valve. Tricuspid Valve Normal tricuspid valve. Mild (1+) tricuspid valve insufficiency. Pulmonary artery systolic pressure is 32 mmHg. Aortic Valve Trisinus/trileaflet aortic valve. Pulmonic Valve Normal pulmonic valve. Great Vessels Normal aortic root. Pericardium/Pleural No pericardial effusion. Medication 22 gauge I.V. with prn adaptor inserted into right arm. Diluted definity 3.0ml given slow IV push to enhance endocardial definition. MMode/2D Measurements & Calculations LVIDd: 5.6 cm IVSd: 1.3 cm Ao root diam: 3.6 cm LVIDs: 4.3 cm LVPWd: 1.4 cm RVDd: 4.1 cm FS: 24.3 % asc Aorta Diam: 4.2 cm LAV(MOD-bp): 62.4 ml LVAd ap2: 28.7 cm2 LAV(MOD-bp) Indexed: 26.3 ml/m2 LVLd ap2: 8.5 cm LAV(MOD-sp2): 60.9 ml EDV(MOD-sp2): 82.7 ml LAV(MOD-sp4): 60.8 ml EDV(sp2-el): 82.7 ml LVAs ap2: 17.4 cm2 LVLs ap2: 6.7 cm ESV(MOD-sp2): 37.0 ml ESV(sp2-el): 38.7 ml EF(MOD-sp2): 55.2 % SV(MOD-sp2): 45.7 ml LA A4 area: 20.0 cm2 LA dimension(2D): 4.5 cm SI(MOD-sp2): 19.2 ml/m2 RA A4 area: 16.4 cm2 TAPSE: 2.3 cm Time Measurements MV dec time: 0.23 sec Doppler Measurements & Calculations MV E max rashad: 74.5 cm/sec Lat Peak E' Rashad: 6.6 cm/sec Med Peak E' Rashad: 6.3 cm/sec MV A max rashad: 83.7 cm/sec E/E' lat: 11.4 E/E' med: 11.7 MV E/A: 0.89 MV V2 max: 92.1 cm/sec MV P1/2t max rashad: 91.3 cm/sec Ao V2 max: 157.5 cm/sec MV max P.4 mmHg MV P1/2t: 74.9 msec Ao max P.9 mmHg MV V2 mean: 58.5 cm/sec MV dec slope: 357.4 cm/sec2 Ao V2 mean: 106.6 cm/sec MV mean P.5 mmHg MVA(P1/2t): 2.9 cm2 Ao mean P.1 mmHg MV V2 VTI: 26.8 cm Ao V2 VTI: 33.7 cm AV (velocity ratio): 0.81 LV V1 max: 110.0 cm/sec PA V2 max: 124.0 cm/sec TR max rashad: 225.6 cm/sec LV V1 max P.8 mmHg PA V2 mean: 88.6 cm/sec TR max P.4 mmHg LV V1 mean P.4 mmHg LV V1 mean: 73.3 cm/sec LV V1 VTI: 27.5 cm ECHO/Echo Complete W/ Contrast Interpretation Summary The left ventricular ejection fraction is 55 %. Normal LV size. Stage 1 diastolic dysfunction. Contrast injection was performed. Ordering Physician: Marilyn^Dejuan^Maria Isabel^^ Referring Physician: Dejuan Sanders Performed By: Esther Hanson, RDCS, RVT
--- OUTSIDE RECORDS SUMMARY | 2025-02-08 07:06 | XMS RPT_ITS | CCD ---
Author Organization [facility] Care Team Providers Care Emulsion Coater Name Role Phone Dr. Mayr Abernathy Primary Care Provider Dr. Mary Abernathy Referring Provider Dr. Du Neri Attending Provider 1([facility])[phone] Dr. Obinna Baltazar Attending Provider [phone] FriendDr. Sandy Referring Provider 1([facility]) [phone] Mary Abernathy Primary Care Provider Dr. Mary Abernathy Primary Care Provider Dr. Mary Abernathy Referring Provider Dr. Du Neri Attending Provider Dr. Mary Abernathy Primary Care Provider Dr. Mary Abernathy Referring Provider Dr. Du Neri Attending Provider 1([facility])[phone] Dr. Dhruv Redding Attending Provider Dr. Watson Cat Attending Provider Mary Abernathy Primary Care Provider MARY ABERNATHY Primary Care Unavailable Dr. Mary Abernathy Primary Care Provider Dr. Mary Abernathy Referring Provider Dr. Ming Gonzalez Attending Provider Dr. Obinna Baltazar Attending Provider 1([facility])[phone] Mary Abernathy Primary Care Provider Dr. Mary Abernathy Referring Provider Dr. Ming Gonzalez Attending Provider Dr. Obinna Baltazar Attending Provider Kevin ELECTROCARDIOGRAPH OPERATOR, ELECTROCARDIOGRAPH OPERATOR-C Gisella Attending Provider ERIKA SPANGLER, KP Galaviz Attending Serge ABERNATHY MD, DR DE LA ROSA Primary Care Unavailable JOSEMANUEL ZELAYA, DR DE LA ROSA Primary Care Unavailable ERIKA SPANGLER, KP Galaviz Attending Serge ABERNATHY MD, DR DE LA ROSA Primary Care Unavailable ERIKA PIMENTEL-PRESS TENDER LONG GOODS, KP Galaviz Attending Serge SPANGLER, KP Galaviz Attending Serge ABERNATHY MD, DR DE LA ROSA Primary Care Unavailable JOSEMANUEL ZELAYA, DR DE LA ROSA Primary Care Physician Josemanuel ZELAYA, Dr. Mary Basilio Primary Care Provider Josemanuel ZELAYA, Dr. Mary Basilio Attending Provider Josemanuel ZELAYA, Dr. Mary Basilio Referring Provider Erika ELECTROCARDIOGRAPH OPERATOR-CKp Attending Provider Erika RADER-CKp Referring Provider Marilyn ZELAYA, Dr. Janey Nicolas Primary Care Provider Marilyn ZELAYA, Dr. Janey Nicolas Attending Provider Marilyn ZELAYA, Dr. Janey Nicolas Referring Provider Raven MONTES DE OCA, Dr. Salvador Emergency Provider JOSEMANUEL ZELAYA, DR DE LA ROSA Primary Care Unavailable NERI ZELAYA, DR HERSON Wong Admitting Melita Coley MD, DR HERSON Wong Attending Unavailab jyotsna SANDERS MD, JANEY Hollis Unavailable ASHOK COLE Consulting Matthias HE MD, DR HERSON Wong Attending Unavailab Evelio ZELAYA, DR DE LA ROSA Primary Care Unavailable Dr. Modesto Carbajal DO Attending Provider Janey Sanders Primary Care Unavailable Janey Sanders Referring Unavailable Janey Sanders Attending Unavailable Janey Sanders Referring Unavailable Janey Sanders Attending Unavailable Janey Sanders Primary Care Unavailable Jolliff, Mary S Attending Unavailable Jolliff, Mary S Primary Care Unavailable Jolliff, Mary S Primary Care Unavailable Obinna Baltazar Attending Unavailable Pedro Segura Attending Unavailable Jolliff, Mary S Referring Unavailable Jolliff, Mary S Primary Care Unavailable Pedro Segura Attending Unavailable Jolliff, Mary S Primary Care Unavailable Jolliff, Mary S Referring Unavailable MERRILL, TARIQ Referring Unavailable Jolliff, Mary S Primary Care Unavailable TARIQ MOMIN Attending Unavailable Pedro Segura Referring Unavailable Pedro Segura Attending Unavailable Jolliff, Mary S Primary Care Unavailable Kp James Referring Unavailable Kp James Attending Unavailable Jolliff, Mary S Primary Care Unavailable Modesto Carbajal Attending Unavailable Janey Sanders Primary Care Unavailable Pedro Segura Referring Unavailable Imelda, Pedro Attending Unavailable Jolliff, Mary S Primary Care Unavailable Jolliff, Mary S Primary Care Unavailable Jolliff, Mary S Referring Unavailable Jolliff, Mary S Attending Unavailable Kp James Referring Unavailable Kp James Attending Unavailable Jolliff, Mary S Primary Care Unavailable Jolliff, Mary S Primary Care Unavailable Jolliff, Mary S Referring Unavailable Jolliff, Mary S Attending Unavailable Janey Sanders Referring Unavailable Janey Sanders Attending Unavailable Janey Sanders Primary Care Unavailable Allergies Allergy Classification Reported Allergen(s) Allergy Type Date of Onset Reaction(s) Facility (20 sources) Penicillins; Translations: [PENICILLINS] Allergy to substance 9 Rash [facility] Work Phone: (3 sources) Penicillin; Translations: [penicillin] Drug Allergy Eruption (morphologic abnormality) [facility] [place] Medications Current Medications Medication Drug Class(es) Dates Sig (Normalized) Sig (Original) acetaminophen 500 mg oral tablet (14 sources) Start: 01-05-2025 take 2 tablets by mouth every six hours as needed for pain Acetaminophen 500 mg tablet Active 1000 mg PO EVERY 6 HOURS as needed for fever or pain January 05, 2025 12:00am Start: 12-27-2024 take 1 tablet by aguila th once daily Tylenol Dose : 1,000 mg = 2 tab(s), Oral, TID, not to exceed 3000 mg/day, 0 Refill(s) Start Date: 12/27/24 Status: Ordered Repeat number: 1 Start: 04-03-2024 take 1 mg by mouth e very six hours acetaminophen 500 mg oral capsule mg = cap(s), Oral, q6hr, 0 Refill(s) Start Date: 04/03/24 Status: Ordered Repeat number: 1 Start: 08-20-2023 End: 06-07-2024 take 1 tablet by mouth every six hours Acetaminophen 500 mg tablet Discontinued 500 mg PO EVERY 6 HOURS August 20, 2023 1:00am June 07, 2024 8:19am aspirin 81 mg oral tablet (8 sources) Platelet Aggregation Inhibitor, Nonsteroidal Anti-inflammatory Drug Start: 12-27-2024 End: 01-26-2025 take 1 tablet by mouth twice daily at mealtime aspirin Dose : 81 mg = 1 tab(s), Oral, BIDM, Take 81 mg aspirin twice daily with food for 4 weeks postoperatively for DVT prophylaxis., 0 Refill(s) Start Date: 12/27/24 Stop Date: 01/26/25 Status: Ordered Repeat number: 1 Start: 06-07-2024 take 1 tablet by aguila th twice daily Aspirin (Adult Aspirin Regimen) 81 mg tablet,delayed release (DR/EC) Active 81 mg PO TWICE A DAY June 07, 2024 12:00am Start: 06-07-2024 take 1 tablet by aguila th once daily Aspirin (Adult Aspirin Regimen) 81 mg tablet,delayed release (DR/EC) Active 81 mg PO daily June 07, 2024 12:00am Start: 04-03-2024 aspirin 81 mg oral delayed release tablet Dose : 81 mg = 1 tab(s), Oral, qDay, # 30 tab(s), 0 Refill(s) Start Date: 04/03/24 Status: Ordered benzonatate 100 mg oral capsule (1 source) Non-narcotic Antitussive Start: 09-03-2023 End: 09-10-2023 take 1 capsule by mouth every eight hours as needed benzonatate (TESSALON PERLE) 100 mg capsule Take 1 capsule by mouth three times a day as needed for cough for up to 7 days. 21 capsule 0 09/03/2023 09/10/2023 Active Comment on above: Take 1 capsule by mo uth three times a day as needed for cough for up to 7 days. cholecalciferol 0.025 mg oral capsule (3 sources) Vitamin D Start: 01-05-2025 take 1 capsule by mouth once daily Cholecalciferol (Vitamin D3) (Vitamin D3) 25 mcg (1,000 unit) capsule Active 50 ug PO DAILY January 05, 2025 12:00am docusate sodium 50 mg / sennosides, assisted 8.6 mg oral tablet (1 source) Start: 12-27-2024 End: 12-30-2024 take 1 tablet by mouth twice daily Senokot S 50 mg-8.6 mg oral tablet Dose = 2 tab(s), Oral, BID, Take until first bowel movement, then as needed, X 3 day(s), # 12 tab(s), 0 Refill(s), Pharmacy: [facility]/pharmacy #[id number], 180.3, cm, 12/26/24 10:26:00 EDT, Height, kg, 12/26/24 10:26:00 EDT, Dosing Weight Start Date: 12/27/24 Stop Date: 12/30/24 Status: Ordered Quantity: 12.0 Unit: tab(s) Repeat number: 1 erythromycin 0.005 mg/mg ophthalmic ointment (1 source) Macrolide, Macrolide Antimicrobial Start: 11-30-2024 erythromycin 0.5% ophthalmic ointment APPLY A SMALL AMOUNT INTO LEFT EYE AT BEDTIME Start Date: 11/30/24 Status: Ordered Repeat number: 1 famotidine 20 mg oral tablet (1 source) Histamine-2 Receptor Antagonist Start: 12-27-2024 Pepcid 20 mg oral tablet Dose : 20 mg = 1 tab(s), Oral, qDay, # 30 tab(s), 0 Refill(s), Pharmacy: [facility]/pharmacy #[id number], 180.3, cm, 12/26/24 10:26:00 EDT, Height, kg, 12/26/24 10:26:00 EDT, Dosing Weight Start Date: 12/27/24 Status: Ordered Quantity: 30.0 Unit: tab(s) Repeat number: 1 furosemide 40 mg oral tablet (20 sources) Loop Diuretic Start: 01-05-2025 take 1 tablet by mouth once daily Furosemide (Lasix) 40 mg tablet Active 40 mg PO DAILY 7 January 05, 2025 12:00am Start: 12-23-2023 take 1 tablet by aguila th once daily Furosemide 20 mg tablet Active 20 mg PO DAILY December 23, 2023 4:06pm Start: 11-17-2023 End: 11-19-2023 take 1 tablet by mouth once daily Furosemide 20 mg tablet Discontinued 20 mg PO DAILY November 17, 2023 12:00am November 19, 2023 2:49pm Start: 08-26-2023 furosemide (LA SIX) 20 mg tablet latanoprost 0.05 mg/ml ophthalmic suspension (19 sources) Prostaglandin Analog Start: 04-03-2024 take 1 dose into the eye(s) once daily at bedtime latanoprost 0.005% ophthalmic emulsion Dose = 1 drop(s), Eyes, both, qHS, # 2.5 mL, 0 Refill(s) Start Date: 04/03/24 Status: Ordered Start: 11-26-2021 Latanoprost 0. 005 % Drops Active 1 NMA EACH EYE EVERY EVENING November 26, 2021 12:00am On Hold: Ordered Start: 11-26-2021 Latanoprost Ac tive 1 DRP EACH EYE EVERY EVENING November 26, 2021 12:00am Comment on above: Use 1 Drop in both e yes daily at bedtime. magnesium oxide 400 mg oral tablet (3 sources) Start: 01-05-2025 take 1 tablet by mouth three times daily Magnesium Oxide 400 mg (241.3 mg magnesium) tablet Active 400 mg PO THREE TIMES A DAY January 05, 2025 12:00am meloxicam 7.5 mg oral tablet (20 sources) Nonsteroidal Anti-inflammatory Drug Start: 01-05-2025 take 1 tablet by mouth twice daily Meloxicam 7.5 mg tablet Active 7.5 mg PO TWICE A DAY January 05, 2025 12:00am Start: 12-27-2024 Mobic 7.5 mg o ral tablet Dose : 7.5 mg = 1 tab(s), Oral, BIDM, Do not take any other nonsteroidal anti-inflammatories while on meloxicam/Mobic., # 60 tab(s), 0 Refill(s), Pharmacy: [facility]/pharmacy #[id number], 180.3, cm, 12/26/24 10:26:00 EDT, Height, kg, 12/26/24 10:26:00 EDT, Dosing Weight Start Date: 12/27/24 Status: Ordered Quantity: 60.0 Unit: tab(s) Repeat number: 1 Start: 11-26-2021 End: 07-08-2023 take 1 tablet by mouth once daily Meloxicam (Mobic) 7.5 mg Tablet Discontinued 7.5 mg PO DAILY November 26, 2021 12:00am July 08, 2023 12:38pm 24 hr metFORMIN hydrochloride 500 mg extended release oral tablet (5 sources) Biguanide Start: 01-05-2025 take 1 tablet by mouth every twenty-four hours at bedtime Metformin 500 mg tablet extended release 24 hr Active 500 mg PO AT BEDTIME January 05, 2025 12:00am Start: 11-30-2024 MetFORMIN (Eqv -Glucophage XR) 500 mg oral tablet, EXTENDED RELEASE Dose : 500 mg = 1 tab(s), Oral, qDay, # 90 tab(s), 0 Refill(s) Start Date: 11/30/24 Status: Ordered Quantity: 90.0 Unit: tab(s) Repeat number: 1 Multivitamin preparation (11 sources) Start: 11-26-2021 take 1 capsule by mouth once daily Multivitamin Active 1 CAP PO DAILY November 26, 2021 2:26pm Start: 11-26-2021 take 1 capsule by mo uth once daily Multivitamin Active 1 CAP PO DAILY November 25, 2021 11:00pm Start: 11-26-2021 take 1 capsule by mo uth once daily Multivitamin Active 1 CAP PO DAILY November 26, 2021 12:00am [place]-3 Fatty Acids-Vitamin E (Fish Oil) 1,000 mg Capsule (17 sources) Start: 11-26-2021 take 1 capsule by mouth once daily [place]-3 Fatty Acids-Vitamin E (Fish Oil) 1,000 mg Capsule Active 1 CAP PO DAILY November 26, 2021 2:26pm Start: 11-26-2021 End: 07-08-2023 [place]-3 Fatty Acids-Vitamin E (Fish Oil) 1,000 mg Capsule Discontinued 1 NMA PO DAILY November 26, 2021 12:00am July 08, 2023 12:38pm Start: 11-26-2021 End: 07-08-2023 take 1 capsule by mouth once daily [place]-3 Fatty Acids-Vitamin E (Fish Oil) 1,000 mg Capsule Discontinued 1 CAP PO DAILY November 26, 2021 12:00am July 08, 2023 12:38pm Start: 11-26-2021 take 1 capsule by [facility] once daily [place]-3 Fatty Acids-Vitamin E (Fish Oil) 1,000 mg Capsule Active 1 CAP PO DAILY November 25, 2021 11:00pm Start: 11-26-2021 take 1 capsule by [facility] once daily [place]-3 Fatty Acids-Vitamin E (Fish Oil) 1,000 mg Capsule Active 1 CAP PO DAILY November 26, 2021 12:00am oxyCODONE hydrochloride 5 mg oral tablet (2 sources) Opioid Agonist Start: 12-27-2024 End: 01-03-2025 take 1-2 tablets by mouth every four hours as needed for pain oxyCODONE 5 mg oral tablet ( IMMEDIATE release ) See Instructions, PRN as needed for pain, 1-2 tab(s) Oral q4h, # 42 tab(s), 0 Refill(s), 01/03/25 8:06:00 AM EDT, Pharmacy: [facility]/pharmacy #[id number], S/P total right hip arthroplasty, 180.3, cm, 12/26/24 10:26:00 EDT, Height, 127.8, kg, 12/26/24 10:26:00 EDT, Dosing Weight Start Date: 12/27/24 Stop Date: 01/03/25 Status: Ordered Quantity: 42.0 Unit: tab(s) Repeat number: 1 Indications: Presence of right artificial hip joint; Start: 11-30-2024 oxyCODONE 5 mg oral tablet ( IMMEDIATE release ) Dose : 5 mg = 1 tab(s), Oral, q6h, PRN for pain, # 12 tab(s), 0 Refill(s), 131.9 Start Date: 11/30/24 Status: Ordered Quantity: 12.0 Unit: tab(s) Repeat number: 1 prednisoLONE acetate 10 mg/ml ophthalmic suspension (1 source) Corticosteroid Start: 11-30-2024 take 1 drop(s) into the eye(s) three times daily prednisoLONE acetate 1% ophthalmic suspension INSTILL 1 DROP INTO LEFT EYE THREE TIMES DAILY Start Date: 11/30/24 Status: Ordered Repeat number: 1 rosuvastatin calcium 20 mg oral tablet (5 sources) HMG-CoA Reductase Inhibitor Start: 01-05-2025 take 1 tablet by mouth at bedtime Rosuvastatin 20 mg tablet Active 20 mg PO AT BEDTIME January 05, 2025 12:00am Start: 11-30-2024 rosuvastatin 2 0 mg oral tablet Dose : 20 mg = 1 tab(s), Oral, qDay, # 90 tab(s), 0 Refill(s) Start Date: 11/30/24 Status: Ordered Quantity: 90.0 Unit: tab(s) Repeat number: 1 tamsulosin hydrochloride 0.4 mg oral capsule (3 sources) alpha-Adrenergic Kaylee Start: 01-05-2025 take 1 capsule by mouth once daily Tamsulosin 0.4 mg capsule Active 0.4 mg PO DAILY January 05, 2025 12:00am Vitamin D3 25 mcg (1000 intl units) oral capsule (2 sources) Start: 12-13-2024 Vitamin D3 25 mcg (1000 intl units) oral capsule Dose : 25 mcg = 1 cap(s), Oral, qDay, # 75 cap(s), 0 Refill(s) Start Date: 12/13/24 Status: Ordered Quantity: 75.0 Unit: cap(s) Repeat number: 1 Completed/Discontinued Medications Medication Drug Class(es) Dates Sig (Normalized) Sig (Original) atorvastatin 40 mg oral tablet (15 sources) HMG-CoA Reductase Inhibitor Start: 11-19-2023 End: 01-05-2025 take 1 tablet by mouth once daily Atorvastatin 40 mg tablet Discontinued 40 mg PO DAILY July 17, 2024 1:35pm January 05, 2025 6:16pm doxycycline hyclate 100 mg oral capsule (16 sources) Tetracycline-cla ss Drug Start: 02-27-2022 End: 07-08-2023 take 1 capsule by mouth twice daily Doxycycline Hyclate 100 mg capsule Discontinued 100 mg PO TWICE A DAY 60 February 27, 2022 12:00am July 08, 2023 12:38pm Start: 01-24-2022 End: 01-29-2022 take 1 capsule by mouth twice daily doxycycline monohydrate (MONODOX) 100 mg capsule Indications: Inflamed skin tag Take 1 capsule by mouth twice daily for 5 days. 10 capsule 0 01/24/2022 01/29/2022 Active Comment on above: Take 1 capsule by [facility] twice daily for 5 days. lisinopril 20 mg oral tablet (20 sources) Angiotensin Converting Enzyme Inhibitor Start: End: take 1 tablet by mouth once daily Lisinopril 20 mg tablet Discontinued 20 mg PO DAILY July 17, 2024 1:35pm September 12, 2024 4:25pm Start: 07-14-2022 End: 11-19-2023 take 1 tablet by mouth once daily Lisinopril 10 mg tablet Discontinued 10 mg PO DAILY November 17, 2023 8:28am November 19, 2023 2:51pm Start: 07-14-2022 End: 11-17-2023 Lisinopril 10 mg tablet Disc ontinued NMA PO July 14, 2022 1:00am November 17, 2023 8:28am 24 hr metoprolol succinate 50 mg extended release oral tablet (20 sources) beta-Adrenergic Kaylee Start: 04-03-2024 Metopr olol Succinate ER 50 mg oral TABLET extended release Dose : 50 mg = 1 tab(s), Oral, qDay, # 30 tab(s), 0 Refill(s) Start Date: 04/03/24 Status: Ordered Quantity: 30.0 Unit: tab(s) Repeat number: 1 Start: 11-19-2023 End: 12-27-2024 take 1 tablet by mouth once daily Metoprolol Succinate 50 mg tablet extended release 24 hr Discontinued 50 mg PO DAILY August 18, 2024 10:26am August 18, 2024 10:47am Multivitamin Capsule (6 sources) Start: 11-26-2021 End: 01-05-2025 Multivitamin Capsule Discont inued 1 NMA PO DAILY November 26, 2021 12:00am January 05, 2025 6:12pm Start: 11-26-2021 Multivitamin C apsule Active 1 NMA PO DAILY November 26, 2021 12:00am sucralfate 100 mg/ml oral suspension (12 sources) Aluminum Complex Start: 07-09-2022 End: 07-08-2023 take 1 mL by mouth 2 hour(s) before mealtime Sucralfate 100 mg/mL suspension Discontinued 10 mL PO before meals 999July 09, 2022 1:00am July 08, 2023 12:38pm take two hours after medications and one hour before meals Start: 07-09-2022 End: 07-08-2023 take 1 mL by mouth 2 hour(s) before mealtime Sucralfate Discontinued 10 ML PO before meals 1000 July 09, 2022 1:00am July 08, 2023 12:38pm take two hours after medications and one hour before meals Problems Problem Classification Problem Date Documented Da te Episodic/Chronic Allergic reactions (1 source) Allergy status to penicillin; Translations: [Allergy status to penicillin] Onset: 12-26-2024 Episodic Cardiac dysrhythmias (10 sources) Palpitations; Translations: [Palpitations] 11-17-2023 Episodic Diabetes mellitus with complications (2 sources) Type 2 diabetes mellitus with unspecified complications; Translations: [Type 2 diabetes mellitus with other specified complication] Onset: 02-23-2024 Chronic Diabetes mellitus without complication (5 sources) Diabetes mellitus; Translations: [Type 2 diabetes mellitus without complication] Onset: 12-26-2024 11-30-2024 Chronic Essential hypertension (20 sources) Hypertensive disorder; Translations: [Essential (primary) hypertension] 05-30-2022 Chronic Fluid and electrolyte disorders (3 sources) Hyperkalemia; Translations: [Hyperkalemia] Onset: 12-26-2024 Episodic Genitourinary symptoms and ill-defined conditions (18 sources) Dysuria; Translations: [Dysuria] Episodic Immunity disorders (14 sources) Peyton light chain disease; 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 Not significant for any disease. Neoplasms of unspecified nature or uncertain behavior (15 sources) Monoclonal gammopathy (clinical); Translations: [Monoclonal gammopathy] Chronic Comment on above: M-spike 0 on 022, Immunoglobulins are normal. Noninfectious gastroenteritis (14 sources) Colitis; Translations: [Noninfective gastroenteritis and colitis, unspecified] 05-22-2022 Episodic Nonspecific chest pain (8 sources) Chest pain; Translations: [Chest pain, unspecified] 11-17-2023 Episodic Osteoarthritis (4 sources) Osteoarthritis; Translations: [Unspecified osteoarthritis, unspecified site] Onset: 11-16-2024 Chronic Other acquired deformities (8 sources) Lumbar spondylolisthesis; Translations: [Spondylolisthesis, lumbar region] 10-19-2023 Episodic Other acquired deformities (2 sources) Spondylolisthesis, lumbar region; Translations: [Acquired spondylolisthesis] 10-19-2023 Episodic Other aftercare (1 source) [facility] (current) use of oral hypoglycemic drugs; Translations: [[facility] (current) use of oral hypoglycemic drugs] Onset: 12-26-2024 Episodic Other aftercare (1 source) Other terminal supervisor (current) drug therapy; Translations: [Other residential (current) drug therapy] Onset: 12-26-2024 Episodic Other aftercare (1 source) [facility] (current) use of opiate analgesic; Translations: [emt intermediate (current) use of opiate analgesic] Onset: 12-26-2024 Episodic Other aftercare (1 source) [facility] (current) use of systemic steroids; Translations: [emt intermediate (current) use of systemic steroids] Onset: 12-26-2024 Episodic Other aftercare (1 source) Encounter for therapeutic drug level monitoring; Translations: [Encounter for therapeutic drug level monitoring] Onset: 12-26-2024 Episodic Other connective tissue disease (1 source) Hip joint prosthesis present; Translations: [Presence of right artificial hip joint] Onset: 12-27-2024 Chronic Other connective tissue disease (1 source) Presence of right artificial hip joint; Translations: [Presence of right artificial hip joint] Onset: 12-26-2024 Chronic Other gastrointestinal disorders (17 sources) Diarrhea; Translations: [Diarrhea, unspecified] 05-22-2022 Episodic Other gastrointestinal disorders (5 sources) Diarrhea, unspecified; Translations: [Diarrhea] Episodic Other lower respiratory disease (1 source) Cough; Translations: [Cough] Episodic Other lower respiratory disease (8 sources) Dyspnea on exertion; Translations: [Shortness of breath] 11-17-2023 Episodic Other lower respiratory disease (3 sources) Shortness of breath; Translations: [Shortness of breath] Onset: 01-09-2025 11-19-2023 Episodic Other male genital disorders (1 source) Other specified disorders of the male genital organs; Translations: [Other specified disorders of the male genital organs] Onset: 12-04-2024 Episodic Other nervous system disorders (8 sources) Spinal cord disease; Translations: [Disease of spinal cord, unspecified] 08-26-2023 Chronic Other nervous system disorders (1 source) Disease of spinal cord, unspecified; Translations: [Unspecified disease of spinal cord] 08-26-2023 Chronic Other skin disorders (1 source) Skin tag; Translations: [Other hypertrophic disorders of the skin] Episodic Regional enteritis and ulcerative colitis (17 sources) Crohn's disease; Translations: [Crohn's disease, unspecified, without complications] Chronic Residual codes; unclassified (14 sources) Peripheral edema; Translations: [Edema, unspecified] 05-30-2022 Episodic Residual codes; unclassified (8 sources) History of clinical finding in subject; Translations: [Personal history of other specified conditions] 11-17-2023 Episodic Spondylosis; intervertebral disc disorders; other back problems (9 sources) Degeneration of lumbar intervertebral disc; Translations: [Other intervertebral disc degeneration, lumbar region] 08-26-2023 Chronic Spondylosis; intervertebral disc disorders; other back problems (18 sources) Lumbar disc prolapse with radiculopathy; Translations: [Intervertebral disc disorders with radiculopathy, lumbar region] 10-19-2023 Episodic Syncope (8 sources) Syncope; Translations: [Syncope and collapse] 11-17-2023 Episodic Thyroid disorders (20 sources) Hyperthyroidism; Translations: [Thyroid nodule] Onset: 06-29-2024 04-03-2024 Chronic Comment on above: Patient is an 83-yea r-old male with recent diagnosis of hyperthyroidism and incidentally found to have multiple thyroid nodules as well as thyromegaly. By history I am not convinced he suffers from any compressive symptoms. His ultrasound was read by radiology in detail to include information on 8 separate thyroid nodules. I recommended biopsy of 3 of those nodules based on their size and TI-RADS rating. Mr. Gannon had many questions related to not only the process of triaging thyroid nodules but also the implications of biopsy results. I attempted to entertain these questions while encouraging him to not draw any conclusions on the basis of our very limited information to this point. Mr. Gannon appeared to express not only understanding but appreciation for the extra detail. He provided consent to proceed with the procedure and complete details are given in the procedures section of this note.Update 07/10/2024: Patient presents for repeat FNA of right and isthmic thyroid nodules after nondiagnostic results on FNA biopsy last month. Procedure was undertaken in uncomplicated fashion during today's visit. Postprocedural wound care instructions were discussed. Will plan to telephone patient with results once they are given. Will also update patient if he requires further genetic testing based on cytopathology. Results Test Name Value Interpretation Reference Range Facility Hemoglobin A1con 01-25-2025 HbA1c (Bld) [Mass fraction] 6.5 % High <=5.6 [facility] Comment on above: Order Comment: Order Date: 01/25/25Order Info: [id number] - A1C Result Comment: Norm al < 5.7 % Prediabetic 5.7 - 6.4 % Diabetic >or= 6.5 % Please note range changes. Performed By: #### L 501.9985, L500.2500, L501.9520, L100.0100, L101.9900 #### [facility] Laboratory [address] [place], [place], [id number] Hemoglobin A1c percentageOrd ered By: Janey Sanders on 01-25-2025 HbA1c (Bld) [Mass fraction] 6.5 % High <5.7 [facility] Comment on above: Normal < 5.7 % Predi abetic 5.7 - 6.4 % Diabetic >or= 6.5 % Please note range changes. L503.7505on 01-25-2025 Natriuretic peptide B (Bld) [Mass/Vol] 3483 pg/mL High <=1800 [facility] Comment on above: Result Comment: Hear t Failure Unlikely: < 300 pg/mL Heart Failure Likely < 50 Years: > 450 pg/mL 50-75 Years: > 900 pg/mL >75 Years: > 1800 pg/mL Performed By: #### L 501.9985, L500.2500, L501.9520, L100.0100, L101.9900 #### [facility] [address] [place], [place], [id number] Microalb:Creat Ratio,Random URon 01-25-2025 Creatinine [Mass/Vol] 64.00 mg/dL Normal 39.00- 259.0 0 [facility] Comment on above: Order Comment: Order Date: 01/25/25Order Info: [id number] - MIALB Performed By: #### L 501.9985, L500.2500, L501.9520, L100.0100, L101.9900 #### [facility] [address] [place], [address] MALB:CREAT UNABLE TO CALCULATE Normal [facility] Comment on above: Order Comment: Order Date: 01/25/25Order Info: [id number] - MIALB Performed By: #### L 501.9985, L500.2500, L501.9520, L100.0100, L101.9900 #### [facility] [address] [place], [place], [id number] MICROALBUMIN,UR < 12.0 Normal NO RANGE EST. [facility] Comment on above: Order Comment: Order Date: 01/25/25Order Info: [id number] - MIALB Performed By: #### L 501.9985, L500.2500, L501.9520, L100.0100, L101.9900 #### [facility] [address] [place], [place], [id number] Microalbumin/creat ratio urO rdered By: Janey Sanders on 01-25-2025 Urine microalbumin/creatinine ratio measurement UNABLE TO CALCULATE mg/g CRE [facility] Natriuretic peptide.B prohor carmela N-Terminal [Mass/volume] in Serum or PlasmaOrdered By: Janey Sanders on 01-25-2025 Natriuretic peptide.B prohormone N-Terminal [Mass/Vol] 3483 pg/mL High <1800 [facility] Comment on above: Heart Failure Unlike ly: < 300 pg/mLHeart Failure Likely< 50 Years: > 450 pg/mL50-75 Years: > 900 pg/mL>75 Years: > 1800 pg/mL Random urine creatinine andrez urement (mass/volume)Ordered By: Janey Sanders on 01-25-2025 Creatinine Unsp time (U) [Mass/Vol] 64.00 mg/dL 39.00-259.0 0 [facility] Urine albumin measurement wi detection limit of 20 mg/L or less (mass/volume)Ordered By: Janey Sanders on 01-25-2025 Albumin DL <= 20 mg/L (U) [Mass/Vol] < 12.0 mg/L NO RANGE EST. [facility] Thyroglobulin w/Anti-TG ABon 01-10-2025 Anti-TG AB < 1.0 Normal 0.0-0.9 [facility] Comment on above: Result Comment: Thyr oglobulin Antibody measured by [employer] Methodology It should be noted that the presence of thyroglobulin antibodies may not be pathogenic nor diagnostic, especially at very low levels. The assay dial printer has found that four percent of individuals without evidence of thyroid disease or autoimmunity will have positive TgAb levels up to 4 IU/mL. Performed By: #### L 501.9985, L500.2500, L501.9520, L100.0100, L101.9900 #### [facility] [address] [place], [place], [id number] THYROGLOB QUANT 196.9 ng/mL High 1.4-29.2 [facility] Comment on above: Result Comment: Acco rding to the National Academy of Clinical Biochemistry, the reference interval for Thyroglobulin (TG) should be related to euthyroid patients and not for patients who underwent thyroidectomy. TG reference intervals for these patients depend on the residual mass of the thyroid tissue left after surgery. Establishing a post-operative baseline is recommended. The assay limit of quantitation is 0.1 ng/mL Thyroglobulin measured by [employer] Performed By: #### L 501.9985, L500.2500, L501.9520, L100.0100, L101.9900 #### [facility] [address] [place], [place], [id number] Thyroid Peroxidase ABon 05- THYR PEROX AB 23 IU/mL Normal 0-34 [facility] Comment on above: Result Comment: Perf ormed at: - [facility] [place] [id number] [place], [place] [id number] Soldering Technician: Apollo Mcgill PhD, Phone: [phone] Performed By: #### L 501.6533, L500.3117, L512.2254, L100.0100, L101.9900 #### [facility] [address] [facility] [place], [place], [address] 12 Lead EKGon 01-05-2025 12 Lead EKG [facility] [address] [place] [address] 12 Lead EKG 01/05/25 1707 MR#: [id number] Acct: [id number] Name: LCU GANNON Rep #: [id number] : 1940 84 From: Obinna Baltazar MD Attending Dr: Status: DEP ER Ordering Dr: Modesto Carbajal DO Date: 01/05/25 Location: ED Sex: M C Admitted: Test Reason : SOB Blood Pressure : */* mmHG Vent. Rate : 77 BPM Atrial Rate : 77 BPM P-R Int : 196 ms QRS Dur : 106 ms QT Int : 412 ms P-R-T Axes : 73 -10 58 degrees QTcB Int : 466 ms Normal sinus rhythm Lateral infarct , age undetermined Cannot rule out Inferior infarct (cited on or before 27-Nov-2021) Abnormal ECG Confirmed by OBINNA BALTAZAR MD ([id number]), general expeditor MELYSSA GÓMEZ ([id number]) on 01/08/2025 8:49:03 AM Referred By: Confirmed By: OBINNA BALTAZAR MD 01/08/25 0849 Date Obinna Baltazar MD CC: Dr. Janey Sanders MD; Dr. Modesto Carbajal DO Signed Normal [facility] Absolute lymphocyte countOrd ered By: Modesto Carbajal on 01-05-2025 Lymphocytes Auto (Unsp spec) [#/Vol] 0.67 10*3/uL Low 0.83-4.51 [facility] Absolute neutrophil countOrd ered By: Modesto Carbajal on 01-05-2025 Neutrophils (Bld) [#/Vol] 7.4 10*3/uL 2.0-7.7 [facility] Anion gap in Serum or Plasma Ordered By: Modesto Carbajal on 01-05-2025 Anion gap [Moles/Vol] 11 mmol/L 5-15 [facility] Automated lymphocyte count a s percentage of total leukocytesOrdered By: Modesto Carbajal on 01-05-2025 Lymphocytes/100 WBC Auto (Unsp spec) 7.2 % Low 19-41 [facility] BUN/creatinine ratioOrdered By: Modesto Carbajal on 01-05-2025 Urea nitrogen/Creatinine [Mass ratio] 35.6 mg/mg High 10-20 [facility] Basic Metabolic Profile (BMP )on 01-05-2025 BUN/CRE 35.6 RATIO High 10- [facility] Comment on above: Performed By: #### L 501.9985, L500.2500, L501.9520, L100.0100, L101.9900 #### [facility] Laboratory [address] [place], [address] Calcium [Mass/Vol] 9.1 mg/dL Normal 7.6-11.0 [place] Comment on above: Performed By: #### L 501.9985, L500.2500, L501.9520, L100.0100, L101.9900 #### [facility] Laboratory [address] [place], [address] Chloride [Moles/Vol] 102 mmol/L Normal 98-108 [facility] Comment on above: Performed By: #### L 501.9985, L500.2500, L501.9520, L100.0100, L101.9900 #### [facility] [address] [place], [address] CO2 [Moles/Vol] 23.7 mmol/L Normal 21.0-32.0 [facility] Comment on above: Performed By: #### L 501.9985, L500.2500, L501.9520, L100.0100, L101.9900 #### [facility] [address] [place], [address] Creatinine [Mass/Vol] 1.07 mg/dL Normal 0.70-1.20 [facility] Comment on above: Performed By: #### L 501.9985, L500.2500, L501.9520, L100.0100, L101.9900 #### [facility] [address] [place], [address] ECRCL 71.69 ml/min Normal 50-250 [facility] Comment on above: Performed By: #### L 501.9985, L500.2500, L501.9520, L100.0100, L101.9900 #### [facility] [address] [place], [address] GAP 11 Normal 5-15 [facility] Comment on above: Performed By: #### L 501.9985, L500.2500, L501.9520, L100.0100, L101.9900 #### [facility] [address] [place], [address] GFR/1.73 sq M.predicted among non-blacks MDRD (S/P/Bld) [Vol rate/Area] 69 mL/min/{1.73_m2} Normal >60 [facility] Comment on above: Result Comment: mL/m in/1.73m2 CKD-EPI Creatinine Equation (2020) Performed By: #### L 501.9985, L500.2500, L501.9520, L100.0100, L101.9900 #### [facility] [address] [place], [address] Glucose [Mass/Vol] 107 mg/dL High 70-99 [place] Comment on above: Performed By: #### L 501.9985, L500.2500, L501.9520, L100.0100, L101.9900 #### [facility] [address] [place], [address] Potassium [Moles/Vol] 5.0 mmol/L Normal 3.3-5.1 [facility] Comment on above: Performed By: #### L 501.9985, L500.2500, L501.9520, L100.0100, L101.9900 #### [facility] [address] [place], [address] Sodium [Moles/Vol] 136 mmol/L Normal 133-145 [place] Comment on above: Performed By: #### L 501.9985, L500.2500, L501.9520, L100.0100, L101.9900 #### [facility] [address] [place], [address] Urea nitrogen [Mass/Vol] 38 mg/dL High 4-19 [facility] Comment on above: Performed By: #### L 501.9985, L500.2500, L501.9520, L100.0100, L101.9900 #### [facility] [address] [place], [address] Basophil percentageOrdered B y: Modesto Carbajal on 01-05-2025 Basophils/100 WBC (Bld) 0.5 % 0-1 [facility] CBC W/Diff, Automatedon 12-21 Absolute Lymph 0.67 X10 3/uL Low 0.83-4.51 [facility] Comment on above: Performed By: #### L 501.9985, L500.2500, L501.9520, L100.0100, L101.9900 #### [facility] [address] [place], [address] Absolute Neut 7.4 X10 3/uL Normal 2.0-7.7 [facility] Comment on above: Performed By: #### L 501.9985, L500.2500, L501.9520, L100.0100, L101.9900 #### [facility] [address] [place], [address] Basophils/100 WBC (Bld) 0.5 % Normal 0-1 [facility] Comment on above: Performed By: #### L 501.9985, L500.2500, L501.9520, L100.0100, L101.9900 #### [facility] [address] [place], [address] Eosinophils/100 WBC (Bld) 1.8 % Normal 0-5 [facility] Comment on above: Performed By: #### L 501.9985, L500.2500, L501.9520, L100.0100, L101.9900 #### [facility] [address] [place], [address] Erythrocyte distribution width (RBC) [Ratio] 13.3 % Normal 11.6-14.6 [facility] Comment on above: Performed By: #### L 501.9985, L500.2500, L501.9520, L100.0100, L101.9900 #### [facility] [address] [place], [address] Hematocrit (Bld) [Volume fraction] 32.4 % Low 40-54 [facility] Comment on above: Performed By: #### L 501.9985, L500.2500, L501.9520, L100.0100, L101.9900 #### [facility] [address] [place], [address] Hemoglobin (Bld) [Mass/Vol] 10.8 g/dL Low 13.0-16.5 [facility] Comment on above: Performed By: #### L 501.9985, L500.2500, L501.9520, L100.0100, L101.9900 #### [facility] [address] [place], [address] IG% 1.200 High 0.0-0.9 [facility] Comment on above: Result Comment: IG% - Immature Granulocytes (promyelocytes, myelocytes and metamyelocytes) > 1% indicates that a LEFT SHIFT is Present. Performed By: #### L 501.9985, L500.2500, L501.9520, L100.0100, L101.9900 #### [facility] [address] [place], [address] Lymphocytes/100 WBC (Bld) 7.2 % Low 19-41 [facility] Comment on above: Performed By: #### L 501.9985, L500.2500, L501.9520, L100.0100, L101.9900 #### [facility] [address] [place], [address] MCH (RBC) [Entitic mass] 29.8 pg Normal 27.0-32.0 [facility] Comment on above: Performed By: #### L 501.9985, L500.2500, L501.9520, L100.0100, L101.9900 #### [facility] [address] [place], [address] MCHC (RBC) [Mass/Vol] 33.3 g/dL Normal 32-36 [facility] Comment on above: Performed By: #### L 501.9985, L500.2500, L501.9520, L100.0100, L101.9900 #### [facility] [address] [place], [address] MCV (RBC) [Entitic vol] 89.5 fL Normal 80-94 [facility] Comment on above: Performed By: #### L 501.9985, L500.2500, L501.9520, L100.0100, L101.9900 #### [facility] [address] [place], [address] Monocytes/100 WBC (Bld) 9.7 % Normal 0-10 [facility] Comment on above: Performed By: #### L 501.9985, L500.2500, L501.9520, L100.0100, L101.9900 #### [facility] [address] [place], [address] Neutrophils/100 WBC (Bld) 79.6 % High 47-70 [facility] Comment on above: Performed By: #### L 501.9985, L500.2500, L501.9520, L100.0100, L101.9900 #### [facility] [address] [place], [address] Nucleated RBC (Bld) [#/Vol] 0 10*3/uL Normal 0-5 [facility] Comment on above: Performed By: #### L 501.9985, L500.2500, L501.9520, L100.0100, L101.9900 #### [facility] [address] [place], [address] Platelet mean volume (Bld) [Entitic vol] 8.8 fL Normal 6.2-12.0 [facility] Comment on above: Performed By: #### L 501.9985, L500.2500, L501.9520, L100.0100, L101.9900 #### [facility] [address] [place], [address] Platelets (Bld) [#/Vol] 252 10*3/uL Normal 150-450 [facility] Comment on above: Performed By: #### L 501.9985, L500.2500, L501.9520, L100.0100, L101.9900 #### [facility] [address] [place], [address] RBC (Bld) [#/Vol] 3.62 10*6/uL Low 4.6-6.2 [facility] Comment on above: Performed By: #### L 501.9985, L500.2500, L501.9520, L100.0100, L101.9900 #### [facility] [address] [place], [address] RDW SD 43.9 fl Normal 35.1-43.9 [facility] Comment on above: Performed By: #### L 501.9985, L500.2500, L501.9520, L100.0100, L101.9900 #### [facility] [address] [place], [address] WBC (Bld) [#/Vol] 9.4 10*3/uL Normal 4.4-11.0 [place] Comment on above: Performed By: #### L 501.9985, L500.2500, L501.9520, L100.0100, L101.9900 #### [facility] [address] [place], [address] CTA Chest W/WO Contraston CTA Chest W/WO Contrast [facility] Services [address] [place] [address] CTA Chest W/WO Contrast MR#: [id number] Acct: [id number] Name: LUC GANNON Rep #: [id number] : 1940 M 84 From: Sang nicolas MD PCP: Dr. Janey Sanders MD Status: [facility] ER Study: CTA Chest W/WO Contrast Date of Exam: 01/05/25 Exam# [id number] Ordering Dr: Modesto Carbajal DO PROCEDURE: CTA CHEST W/WO CONTRAST 01/05/2025 REASON FOR EXAM: SOB, RECENT SURGERY R/O PE TECHNIQUE: CTA axial imaging of the chest with intravenous contrast. Multiplanar and multisequence images were obtained. PATIENT PREPARATION: Per protocol One or more dose reduction techniques were used (e.g., Automated exposure control, adjustment of the mA and/or kV according to patient size, use of iterative reconstruction technique). CONTRAST: Omnipaque 350 VOLUME: 100 mL Not Provided Gauge IV COMPARISON: None FINDINGS: Hardware: None Lymph nodes: Benign granulomatous calcifications. Heart: Normal cardiac size. Mild significant coronary artery calcifications. No pericardial effusion. Thoracic Aorta: Mild atherosclerotic calcification of the thoracic aorta. Normal thoracic aorta caliber Pulmonary Vessels: No large central pulmonary emboli are identified. Contrast timing is suboptimal for evaluation of more distal branches. Most Proximal Level of Embolus (if embolus present): None Lungs and Airways: Central airways are patent without endobronchial lesions. Patchy opacities in the lung base, compatible with scarring and atelectasis. No focal consolidation. No pneumothorax. No pleural effusion. A few scattered calcified granulomas. Upper Abdomen: Visualized portions of the upper abdominal viscera are unremarkable. Bones: Degenerative changes of the thoracic spine. Chest wall or mediastinum. Heterogeneously enlarged multinodular goiter. Chest wall is otherwise unremarkable. CT/CTA Chest W/WO Contrast IMPRESSION: No evidence of pulmonary embolism or acute findings in the thorax. Reading [facility] CC: Dr. Janey Sanders MD; Dr. Modesto Carbajal DO Regulatory Law Specialist: Signed Normal [facility] Carbon dioxide, total [Moles /volume] in Central venous bloodOrdered By: Modesto Carbajal on 01-05-2025 CO2 [Moles/Vol] 23.7 mmol/L 21.0-32.0 [facility] Chloride assayOrdered By: Ulisses Carbajal on 01-05-2025 Chloride [Moles/Vol] 102 mmol/L 98-108 [facility] Emergency Department Summary on 01-05-2025 Emergency Department Summary [facility] Medical Records Department [address] [place] [address] Emergency Department Summary 01/05/25 MR#: [id number] Acct: [id number] Name: LUC GANNON Rep #: [id number] : 1940 84 From: Modesto Carbajal DO PCP: Dr. Janey Sanders MD Status:DEP ER Location: ED HPI History of Present Illness Chief Complaint: Shortness of Breath [facility] Medical History Thyroid nodule Palpitations Crohn disease Arthritis Back pain Syncope Abdominal pain Shortness of breath on exertion History of pain when walking History of edema Chest pain History of rheumatic fever Home Medications ???Medication ???Instructions ???Recorded ???Last Taken ???Type latanoprost 0.005 % eye drops 1 drp EACH EYE QPM 11/26/21 Unknow n History Held on 01/05/25. Instructions: Ordered furosemide 20 mg tablet 20 mg PO DAILY #30 tabs 12/23/23 0 01/05/25 Rx aspirin 81 mg tablet,delayed 81 mg PO BID 06/07/24 01/05/25 His tory release (Adult Aspirin Regimen) metoprolol succinate 50 mg 50 mg PO DAILY #90 TABLETS 4 01/05/25 Rx tablet,extended release 24 hr lisinopril 20 mg tablet 20 mg PO DAILY #90 TABLETS 5 01/04/25 Rx acetaminophen 500 mg tablet 1,000 mg PO Q6H PRN fever or pain 01/05/25 01/05/25 History cholecalciferol (vitamin D3) 25 50 mcg PO DAILY 01/05/25 01/05/25 History mcg (1,000 unit) capsule (Vitamin D3) furosemide 40 mg tablet (Lasix) 40 mg PO DAILY 7 days #7 tabs 12/21 02/14 Unknown Rx magnesium oxide 400 mg (241.3 mg 400 mg PO TID 01/05/25 01/05/25 Hi story magnesium) tablet meloxicam 7.5 mg tablet 7.5 mg PO BID 01/05/25 01/05/25 Hi story metformin 500 mg tablet,extended 500 mg PO QHS 01/05/25 01/04/25 Hi story release 24 hr rosuvastatin 20 mg tablet 20 mg PO QHS 01/05/25 01/04/25 His tory tamsulosin 0.4 mg capsule 0.4 mg PO DAILY 01/05/25 01/05/25 History Allergy/AdvReac Type Severity Reaction Status Date / Time Penicillins Allergy Rash Verified 01/05/25 16:34 Family History Sister Cancer Heart disease Mother Brain tumor Father Myocardial infarction Son Heart disease Other Diabetes Surgical History History of cholecystectomy Hx of colonoscopy Hx of total hip arthroplasty Hx of hernia repair Social History Smoking Status: Never smoker alcohol intake: current alcohol intake frequency: holidays/special occasions only EXAM Physical Exam Const Vital Signs: 01/05/25 16:35 01/05/25 17:16 01/05/25 17:16 Temperature 98.4 F Temperature Source Oral Pulse Rate 81 Respiratory Rate 18 Respiratory Effort Short of Breath Respiratory Depth Shallow Respiratory Pattern Tachypnea Blood Pressure 136/57 H Blood Pressure Mean 83 Pulse Ox 95 Oxygen Delivery Method Room Air Room Air 01/05/25 18:27 01/05/25 19:52 01/05/25 20:27 Temperature 98.4 F Temperature Source Pulse Rate 87 70 Respiratory Rate 18 18 Respiratory Effort Respiratory Depth Respiratory Pattern Blood Pressure 124/51 H 135/67 H Blood Pressure Mean 75 89 Pulse Ox 97 95 95 Oxygen Delivery Method Room Air Room Air MDM MDM MDM Narrative Medical decision making narrative: HISTORY OF PRESENT ILLNESS: Chief complaint: Shortness of 84-year-old male history of Crohn disease, hypertension, presents with shortness of breath at physical therapy status post hip replacement. He notes he was on the treadmill for proxy 9 minutes exerted himself vigorously. He notes he became short of breath at the end of this exercise. He notes no shortness of breath associate with his ADLs. He presents to the emergency department primarily concerned about a blood clot. Denies chest pain. Denies bleeding diathesis. Denies unilateral leg swelling. Denies cough fever chills denies history of blood clots. Denies any other PE risk factors other than recent surgery. REVIEW OF SYSTEMS: Pertinent positives: Shortness of breath Pertinent negatives: Cough, chest pain, syncope PHYSICAL EXAM: Nursing triage notes reviewed, Vital signs reviewed Constitutional: please see mdm HENT: MMM Eyes: Pupils equal round and reactive to light, Extraocular muscles intact Neck: No stridor, no JVD, full neck ROM Lungs: Clear to auscultation, No wheezing or rales. No increased work of breathing, no conversational dyspnea, no accessory muscle use, no nasal flaring. No respiratory distress noted Heart: Regular rate and rhythm, No murmurs, No rubs and No gallops, 2+ distal pulses (radial, femoral, posterior tibial) (more content not included)... Normal [facility] Eosinophil percentageOrdered By: Modesto Carbajal on 01-05-2025 Eosinophils/100 WBC (Bld) 1.8 % 0-5 [facility] Erythrocyte distribution wid th ratioOrdered By: Modesto Carbajal on 01-05-2025 Erythrocyte distribution width (RBC) [Ratio] 13.3 % 11.6-14.6 [facility] Erythrocyte distribution wid th standard deviationOrdered By: Modesto Carbajal on 01-05-2025 Erythrocyte distribution width (RBC) [Ratio] 43.9 fl 35.1-43.9 [facility] Glomerular filtration rate ( GFR) estimation/1.73 sq m using serum, plasma, or whole bOrdered By: Modesto Carbajal on 01-05-2025 GFR/1.73 sq M.predicted among non-blacks MDRD (S/P/Bld) [Vol rate/Area] 69 mL/min/{1.73_m2} >60 [facility] Comment on above: mL/min/1.73m2 CKD-EP I Creatinine Equation (2020) Hematocrit Auto (Bld) [Volum e fraction]Ordered By: Modesto Carbajal on 01-05-2025 Hematocrit (Bld) [Volume fraction] 32.4 % Low 40-54 [facility] Hemoglobin measurementOrdere d By: Modesto Carbajal on 01-05-2025 Hemoglobin (Bld) [Mass/Vol] 10.8 g/dL Low 13.0-16.5 [facility] Immature granulocytes/100 WB C Auto (Bld)Ordered By: Modesto Carbajal on 01-05-2025 Immature granulocytes/100 WBC (Bld) 1.200 % High 0.0-0.9 [facility] Comment on above: IG% - Immature Granu locytes (promyelocytes, myelocytes and metamyelocytes) > 1% indicates that a LEFT SHIFT is Present. Iron+Iron Binding Capacityon 01-05-2025 TIBC 231 ug/dL Low 250-450 [facility] Comment on above: Order Comment: Order Date: 01/04/25Order Info: [id number] - CMPOrder Info: [id number] - LIPIDOrder Info: [id number] - MGOrder Info: [id number] - TSHOrder Info: [id number] - T4F Performed By: #### L 501.9985, L500.2500, L501.9520, L100.0100, L101.9900 #### [facility] Laboratory [address] [place], [address] L499.0042on 01-05-2025 Trop T High Sen 35 ng/L High <=22 [facility] Comment on above: Performed By: #### L 501.9985, L500.2500, L501.9520, L100.0100, L101.9900 #### [facility] [address] [place], [address] L499.0043on 01-05-2025 Trop T High Sen Normal <=22 [facility] Comment on above: Result Comment: Canc elled via OM: Order cancelled - Patient discharged Performed By: #### L 501.9985, L500.2500, L501.9520, L100.0100, L101.9900 #### [facility] [address] [place], [address] L501.4021on 01-05-2025 Trop T High Sen 37 ng/L High <=22 [facility] Comment on above: Performed By: #### L 501.9985, L500.2500, L501.9520, L100.0100, L101.9900 #### [facility] [address] [place], [address] L503.7505on 01-05-2025 Natriuretic peptide B (Bld) [Mass/Vol] 1924 pg/mL High <=1800 [facility] Comment on above: Result Comment: Hear t Failure Unlikely: < 300 pg/mL Heart Failure Likely < 50 Years: > 450 pg/mL 50-75 Years: > 900 pg/mL >75 Years: > 1800 pg/mL Performed By: #### L 501.9985, L500.2500, L501.9520, L100.0100, L101.9900 #### [facility] [address] [place], [address] MCV (mean corpuscular volume ) determinationOrdered By: Modesto Carbajal on 01-05-2025 MCV (RBC) [Entitic vol] 89.5 fL 80-94 [facility] Mean corpuscular hemoglobin (MCH) determinationOrdered By: Modesto Carbajal on 01-05-2025 MCH (RBC) [Entitic mass] 29.8 pg 27.0-32.0 [facility] Mean corpuscular hemoglobin concentration (MCHC) determinationOrdered By: Modesto Carbajal on 01-05-2025 MCHC (RBC) [Mass/Vol] 33.3 g/dL 32-36 [facility] Mean platelet volume determi nationOrdered By: Modesto Carbajal on 01-05-2025 Platelet mean volume (Bld) [Entitic vol] 8.8 fL 6.2-12.0 [facility] Monocyte percentageOrdered B y: Modesto Carbajal on 01-05-2025 Monocytes/100 WBC (Bld) 9.7 % 0-10 [facility] Natriuretic peptide.B prohor carmela N-Terminal [Mass/volume] in Serum or PlasmaOrdered By: Modesto Carbajal on 01-05-2025 Natriuretic peptide.B prohormone N-Terminal [Mass/Vol] 1924 pg/mL High <1800 [facility] Comment on above: Heart Failure Unlike ly: < 300 pg/mLHeart Failure Likely< 50 Years: > 450 pg/mL50-75 Years: > 900 pg/mL>75 Years: > 1800 pg/mL Neutrophil percentageOrdered By: Modesto Carbajal on 01-05-2025 Neutrophils/100 WBC (Bld) 79.6 % High 47-70 [facility] Nucleated red blood cell per centageOrdered By: Modesto Carbajal on 01-05-2025 Nucleated RBC/100 WBC (Bld) [Ratio] 0 % 0-5 [facility] Platelet countOrdered By: Ulisses Carbajal on 01-05-2025 Platelets (Bld) [#/Vol] 252 10*3/uL 150-450 [facility] Potassium measurement (mass/ volume)Ordered By: Modesto Carbajal on 01-05-2025 Potassium (Unsp spec) [Mass/Vol] 5.0 mmol/L 3.3-5.1 [facility] RBC Auto (Bld) [#/Vol]Ordere d By: Modesto Carbajal on 01-05-2025 RBC (Bld) [#/Vol] 3.62 10*6/uL Low 4.6-6.2 [facility] Serum creatinine measurement (mass/volume)Ordered By: Modesto Carbajal on 01-05-2025 Creatinine [Mass/Vol] 1.07 mg/dL 0.70-1.20 [facility] Serum glucose measurement (m ass/volume)Ordered By: Modesto Carbajal on 01-05-2025 Glucose [Mass/Vol] 107 mg/dL High 70-99 [place] Serum or plasma calcium andrez urement (mass/volume)Ordered By: Modesto Carbajal on 01-05-2025 Calcium [Mass/Vol] 9.1 mg/dL 7.6-11.0 [place] Serum or plasma urea nitroge n measurement (mass/volume)Ordered By: Modesto Carbajal on 01-05-2025 Urea nitrogen [Mass/Vol] 38 mg/dL High 4-19 [facility] Sodium levelOrdered By: Rachelle Carbajal on 01-05-2025 Sodium [Moles/Vol] 136 mmol/L 133-145 [place] Troponin T.cardiac [Mass/vol ume] in Serum or Plasma by High sensitivity methodOrdered By: Modesto Carbajal on 01-05-2025 Troponin T.cardiac High sensitivity method [Mass/Vol] 35 ng/L High <22 [facility] Troponin T.cardiac High sensitivity method [Mass/Vol] 37 ng/L High <22 [facility] White blood cell (WBC) count Ordered By: Modesto Carbajal on 01-05-2025 WBC (Bld) [#/Vol] 9.4 10*3/uL 4.4-11.0 [place] Absolute lymphocyte countOrd ered By: Janey Sanders on 01-04-2025 Lymphocytes Auto (Unsp spec) [#/Vol] 0.54 10*3/uL Low 0.83-4.51 [facility] Absolute neutrophil countOrd ered By: Janey Sanders on 01-04-2025 Neutrophils (Bld) [#/Vol] 9.3 10*3/uL High 2.0-7.7 [facility] Anion gap in Serum or Plasma Ordered By: Janey Sanders on 01-04-2025 Anion gap [Moles/Vol] 12 mmol/L 01-04 [facility] Automated lymphocyte count a s percentage of total leukocytesOrdered By: Janey Sanders on 01-04-2025 Lymphocytes/100 WBC Auto (Unsp spec) 4.9 % Low 19-41 [facility] BUN/creatinine ratioOrdered By: Janey Sanders on 01-04-2025 Urea nitrogen/Creatinine [Mass ratio] 38.4 mg/mg High 10-20 [facility] Basophil percentageOrdered B y: Janey Sanders on 01-04-2025 Basophils/100 WBC (Bld) 0.4 % 0- [facility] Bilirubin, totalOrdered By: Janey Sanders on 01-04-2025 Bilirubin [Mass/Vol] 0.45 mg/dL 0.00-1.30 [facility] CBC W/Diff, Automatedon 12-21 Absolute Lymph 0.54 X10 3/uL Low 0.83-4.51 [facility] Comment on above: Order Comment: Order Date: 01/04/25 Order Info: [id number] - CBCD Performed By: #### L 500.4050, L501.5200, L100.0100, L501.9520, L506.0400, L500.4100 #### [facility] Laboratory [facility] [address] [facility] [place], [place], [id number] Absolute Neut 9.3 X10 3/uL High 2.0-7.7 [facility] Comment on above: Order Comment: Order Date: 01/04/25 Order Info: [id number] - CBCD Performed By: #### L 500.4050, L501.5200, L100.0100, L501.9520, L506.0400, L500.4100 #### [facility] Laboratory [address] [place], [address] Basophils/100 WBC (Bld) 0.4 % Normal 0-1 [facility] Comment on above: Order Comment: Order Date: 01/04/25 Order Info: [id number]- - CBCD Performed By: #### L 500.4050, L501.5200, L100.0100, L501.9520, L506.0400, L500.4100 #### [facility] Laboratory [address] [place], [address] Eosinophils/100 WBC (Bld) 1.6 % Normal 0-5 [facility] Comment on above: Order Comment: Order Date: 01/04/25 Order Info: [id number] - CBCD Performed By: #### L 500.4050, L501.5200, L100.0100, L501.9520, L506.0400, L500.4100 #### [facility] Laboratory [address] [place], [address] Erythrocyte distribution width (RBC) [Ratio] 13.4 % Normal 11.6-14.6 [facility] Comment on above: Order Comment: Order Date: 01/04/25 Order Info: [id number] - CBCD Performed By: #### L 500.4050, L501.5200, L100.0100, L501.9520, L506.0400, L500.4100 #### [facility] [address] [place], [address] Hematocrit (Bld) [Volume fraction] 35.4 % Low 40-54 [facility] Comment on above: Order Comment: Order Date: 01/04/25 Order Info: [id number] - CBCD Performed By: #### L 500.4050, L501.5200, L100.0100, L501.9520, L506.0400, L500.4100 #### [facility] [address] [place], [address] Hemoglobin (Bld) [Mass/Vol] 11.3 g/dL Low 13.0-16.5 [facility] Comment on above: Order Comment: Order Date: 01/04/25 Order Info: [id number]- - CBCD Performed By: #### L 500.4050, L501.5200, L100.0100, L501.9520, L506.0400, L500.4100 #### [facility] [address] [place], [address] IG% 1.100 High 0.0-0.9 [facility] Comment on above: Order Comment: Order Date: 01/04/25 Order Info: [id number]- - CBCD Result Comment: IG% - Immature Granulocytes (promyelocytes, myelocytes and metamyelocytes) > 1% indicates that a LEFT SHIFT is Present. Performed By: #### L 500.4050, L501.5200, L100.0100, L501.9520, L506.0400, L500.4100 #### [facility] [address] [place], [address] Lymphocytes/100 WBC (Bld) 4.9 % Low 19-41 [facility] Comment on above: Order Comment: Order Date: 01/04/25 Order Info: 0184-1 - CBCD Performed By: #### L 500.4050, L501.5200, L100.0100, L501.9520, L506.0400, L500.4100 #### [facility] [address] [place], [address] MCH (RBC) [Entitic mass] 29.3 pg Normal 27.0-32.0 [facility] Comment on above: Order Comment: Order Date: 01/04/25 Order Info: [id number] - CBCD Performed By: #### L 500.4050, L501.5200, L100.0100, L501.9520, L506.0400, L500.4100 #### [facility] [address] [place], [address] MCHC (RBC) [Mass/Vol] 31.9 g/dL Low 32-36 [facility] Comment on above: Order Comment: Order Date: 01/04/25 Order Info: 0184-1 - CBCD Performed By: #### L 500.4050, L501.5200, L100.0100, L501.9520, L506.0400, L500.4100 #### [facility] [address] [place], [address] MCV (RBC) [Entitic vol] 91.7 fL Normal 80-94 [facility] Comment on above: Order Comment: Order Date: 01/04/25 Order Info: 0184-1 - CBCD Performed By: #### L 500.4050, L501.5200, L100.0100, L501.9520, L506.0400, L500.4100 #### [facility] [address] [place], [address] Monocytes/100 WBC (Bld) 7.6 % Normal 0-10 [facility] Comment on above: Order Comment: Order Date: 01/04/25 Order Info: 0184-1 - CBCD Performed By: #### L 500.4050, L501.5200, L100.0100, L501.9520, L506.0400, L500.4100 #### [facility] [address] [place], [address] Neutrophils/100 WBC (Bld) 84.4 % High 47-70 [facility] Comment on above: Order Comment: Order Date: 01/04/25 Order Info: 0184-1 - CBCD Performed By: #### L 500.4050, L501.5200, L100.0100, L501.9520, L506.0400, L500.4100 #### [facility] Laboratory [address] [place], [address] Nucleated RBC (Bld) [#/Vol] 0 10*3/uL Normal 0-5 [facility] Comment on above: Order Comment: Order Date: 01/04/25 Order Info: 0184-1 - CBCD Performed By: #### L 500.4050, L501.5200, L100.0100, L501.9520, L506.0400, L500.4100 #### [facility] [address] [place], [address] Platelet mean volume (Bld) [Entitic vol] 9.4 fL Normal 6.2-12.0 [facility] Comment on above: Order Comment: Order Date: 01/04/25 Order Info: 0184-1 - CBCD Performed By: #### L 500.4050, L501.5200, L100.0100, L501.9520, L506.0400, L500.4100 #### [facility] [address] [place], [address] Platelets (Bld) [#/Vol] 282 10*3/uL Normal 150-450 [facility] Comment on above: Order Comment: Order Date: 01/04/25 Order Info: 0184-1 - CBCD Performed By: #### L 500.4050, L501.5200, L100.0100, L501.9520, L506.0400, L500.4100 #### [facility] [address] [facility] [place], [address] RBC (Bld) [#/Vol] 3.86 10*6/uL Low 4.6-6.2 [facility] Comment on above: Order Comment: Order Date: 01/04/25 Order Info: 0184-1 - CBCD Performed By: #### L 500.4050, L501.5200, L100.0100, L501.9520, L506.0400, L500.4100 #### [facility] Laboratory [address] [place], [address] RDW SD 45.3 fl High 35.1-43.9 [facility] Comment on above: Order Comment: Order Date: 01/04/25 Order Info: 0184-1 - CBCD Performed By: #### L 500.4050, L501.5200, L100.0100, L501.9520, L506.0400, L500.4100 #### [facility] [address] [facility] [place], [address] WBC (Bld) [#/Vol] 11.0 10*3/uL Normal 4.4-11.0 [facility] Comment on above: Order Comment: Order Date: 01/04/25 Order Info: 0184-1 - CBCD Performed By: #### L 500.4050, L501.5200, L100.0100, L501.9520, L506.0400, L500.4100 #### [facility] Laboratory [address] [facility] [place], [place], [id number] Calculated very low density lipoprotein (VLDL) cholesterol measurementOrdered By: Janey Sanders on 01-04-2025 Calculated very low density lipoprotein (VLDL) cholesterol measurement 27 mg/dL 5-40 [facility] Carbon dioxide, total [Moles /volume] in Central venous bloodOrdered By: Janey Sanders on 01-04-2025 CO2 [Moles/Vol] 22.6 mmol/L 21.0-32.0 [facility] Chloride assayOrdered By: Neha Sanders on 01-04-2025 Chloride [Moles/Vol] 102 mmol/L 98-108 [facility] Comprehensive Metabolic Prof ilon 01-04-2025 Albumin [Mass/Vol] 3.5 g/dL Normal 3.4-4.8 [place] Comment on above: Order Comment: Order Date: 01/04/25 Order Info: 86-1 - CMP Order Info: [id number] - LIPID Order Info: [id number] - MG Order Info: [id number] - TSH Order Info: 3024-7 - T4F Performed By: #### L 500.4050, L501.5200, L100.0100, L501.9520, L506.0400, L500.4100 #### [facility] Laboratory [address] [place], [address] Albumin/Globulin [Mass ratio] 1.3 {ratio} Normal 0.9-2.4 [facility] Comment on above: Order Comment: Order Date: 01/04/25 Order Info: 86-1 - CMP Order Info: [id number] - LIPID Order Info: [id number] - MG Order Info: [id number] - TSH Order Info: 3024-7 - T4F Performed By: #### L 500.4050, L501.5200, L100.0100, L501.9520, L506.0400, L500.4100 #### [facility] Laboratory [address] [place], [address] ALK PHOS 72 U/L Normal 40-129 [facility] Comment on above: Order Comment: Order Date: 01/04/25 Order Info: 86-1 - CMP Order Info: [id number] - LIPID Order Info: [id number] - MG Order Info: [id number] - TSH Order Info: 3024-7 - T4F Performed By: #### L 500.4050, L501.5200, L100.0100, L501.9520, L506.0400, L500.4100 #### [facility] [address] [place], [address] ALT [Catalytic activity/Vol] 23 U/L Normal <=46 [facility] Comment on above: Order Comment: Order Date: 01/04/25 Order Info: [id number] - CMP Order Info: [id number] - LIPID Order Info: [id number] - MG Order Info: [id number] - TSH Order Info: 3024-7 - T4F Performed By: #### L 500.4050, L501.5200, L100.0100, L501.9520, L506.0400, L500.4100 #### [facility] [address] [place], [address] AST [Catalytic activity/Vol] 22 U/L Normal <=37 [facility] Comment on above: Order Comment: Order Date: 01/04/25 Order Info: [id number] - CMP Order Info: [id number] - LIPID Order Info: [id number] - MG Order Info: [id number] - TSH Order Info: 3024-7 - T4F Performed By: #### L 500.4050, L501.5200, L100.0100, L501.9520, L506.0400, L500.4100 #### [facility] [address] [place], [address] Bilirubin [Mass/Vol] 0.45 mg/dL Normal 0.00-1.30 [facility] Comment on above: Order Comment: Order Date: 01/04/25 Order Info: 86-1 - CMP Order Info: [id number] - LIPID Order Info: [id number] - MG Order Info: [id number] - TSH Order Info: 3024-7 - T4F Performed By: #### L 500.4050, L501.5200, L100.0100, L501.9520, L506.0400, L500.4100 #### [facility] [address] [place], [address] BUN/CRE 38.4 RATIO High 10-20 [facility] Comment on above: Order Comment: Order Date: 01/04/25 Order Info: [id number] - CMP Order Info: [id number] - LIPID Order Info: [id number] - MG Order Info: [id number] - TSH Order Info: 3024-7 - T4F Performed By: #### L 500.4050, L501.5200, L100.0100, L501.9520, L506.0400, L500.4100 #### [facility] [address] [place], [address] Calcium [Mass/Vol] 9.1 mg/dL Normal 7.6-11.0 [place] Comment on above: Order Comment: Order Date: 01/04/25 Order Info: 86-1 - CMP Order Info: [id number] - LIPID Order Info: [id number] - MG Order Info: [id number] - TSH Order Info: 3024-7 - T4F Performed By: #### L 500.4050, L501.5200, L100.0100, L501.9520, L506.0400, L500.4100 #### [facility] [address] [place], [address] Chloride [Moles/Vol] 102 mmol/L Normal 98-108 [facility] Comment on above: Order Comment: Order Date: 01/04/25 Order Info: 785-1 - CMP Order Info: [id number] - LIPID Order Info: [id number] - MG Order Info: [id number] - TSH Order Info: 3024-7 - T4F Performed By: #### L 500.4050, L501.5200, L100.0100, L501.9520, L506.0400, L500.4100 #### [facility] [address] [place], [address] CO2 [Moles/Vol] 22.6 mmol/L Normal 21.0-32.0 [facility] Comment on above: Order Comment: Order Date: 01/04/25 Order Info: 86-1 - CMP Order Info: [id number] - LIPID Order Info: [id number] - MG Order Info: [id number] - TSH Order Info: 3024-7 - T4F Performed By: #### L 500.4050, L501.5200, L100.0100, L501.9520, L506.0400, L500.4100 #### [facility] [address] [place], [place], [address] Creatinine [Mass/Vol] 1.11 mg/dL Normal 0.70-1.20 [facility] Comment on above: Order Comment: Order Date: 01/04/25 Order Info: [id number] - CMP Order Info: [id number] - LIPID Order Info: [id number] - MG Order Info: [id number] - TSH Order Info: 302-7 - T4F Performed By: #### L 500.4050, L501.5200, L100.0100, L501.9520, L506.0400, L500.4100 #### [facility] [address] [place], [place], [id number] GAP 12 Normal 5-15 [facility] Comment on above: Order Comment: Order Date: 01/04/25 Order Info: 07-1 - CMP Order Info: [id number] - LIPID Order Info: [id number] - MG Order Info: [id number] - TSH Order Info: [id number] - T4F Performed By: #### L 500.4050, L501.5200, L100.0100, L501.9520, L506.0400, L500.4100 #### [facility] [address] [facility] [place], [place], [address] GFR/1.73 sq M.predicted among non-blacks MDRD (S/P/Bld) [Vol rate/Area] 66 mL/min/{1.73_m2} Normal >60 [facility] Comment on above: Order Comment: Order Date: 01/04/25 Order Info: [id number] - CMP Order Info: [id number] - LIPID Order Info: [id number] - MG Order Info: [id number] - TSH Order Info: 3024-7 - T4F Result Comment: mL/m in/1.73m2 CKD-EPI Creatinine Equation (2020) Performed By: #### L 500.4050, L501.5200, L100.0100, L501.9520, L506.0400, L500.4100 #### [facility] [address] [place], [address] Globulin (S) [Mass/Vol] 2.8 g/dL Normal 2.2-4.2 [facility] Comment on above: Order Comment: Order Date: 01/04/25 Order Info: [id number] - CMP Order Info: [id number] - LIPID Order Info: [id number] - MG Order Info: [id number] - TSH Order Info: 3024-7 - T4F Performed By: #### L 500.4050, L501.5200, L100.0100, L501.9520, L506.0400, L500.4100 #### [facility] [address] [place], [address] Glucose [Mass/Vol] 120 mg/dL High 70-99 [place] Comment on above: Order Comment: Order Date: 01/04/25 Order Info: 785-1 - CMP Order Info: [id number] - LIPID Order Info: [id number] - MG Order Info: [id number] - TSH Order Info: 3024-7 - T4F Performed By: #### L 500.4050, L501.5200, L100.0100, L501.9520, L506.0400, L500.4100 #### [facility] [address] [place], [address] Potassium [Moles/Vol] 4.8 mmol/L Normal 3.3-5.1 [facility] Comment on above: Order Comment: Order Date: 01/04/25 Order Info: [id number] - CMP Order Info: [id number] - LIPID Order Info: [id number] - MG Order Info: [id number] - TSH Order Info: 3024-7 - T4F Performed By: #### L 500.4050, L501.5200, L100.0100, L501.9520, L506.0400, L500.4100 #### [facility] [address] [place], [address] Sodium [Moles/Vol] 137 mmol/L Normal 133-145 [place] Comment on above: Order Comment: Order Date: 01/04/25 Order Info: 0786-1 - CMP Order Info: [id number] - LIPID Order Info: [id number] - MG Order Info: [id number] - TSH Order Info: 3024-7 - T4F Performed By: #### L 500.4050, L501.5200, L100.0100, L501.9520, L506.0400, L500.4100 #### [facility] [address] [place], [address] T PROT 6.3 g/dL Normal 5.9-8.4 [facility] Comment on above: Order Comment: Order Date: 01/04/25 Order Info: 07-1 - CMP Order Info: [id number] - LIPID Order Info: [id number] - MG Order Info: [id number] - TSH Order Info: 3024-7 - T4F Performed By: #### L 500.4050, L501.5200, L100.0100, L501.9520, L506.0400, L500.4100 #### [facility] [address] [place], [address] Urea nitrogen [Mass/Vol] 43 mg/dL High 4-19 [facility] Comment on above: Order Comment: Order Date: 01/04/25 Order Info: [id number] - CMP Order Info: [id number] - LIPID Order Info: [id number] - MG Order Info: [id number] - TSH Order Info: 3024-7 - T4F Performed By: #### L 500.4050, L501.5200, L100.0100, L501.9520, L506.0400, L500.4100 #### [facility] [address] [place], [address] Eosinophil percentageOrdered By: Janey Sanders on 01-04-2025 Eosinophils/100 WBC (Bld) 1.6 % 0-5 [facility] Erythrocyte distribution wid th ratioOrdered By: Janey Sanders on 01-04-2025 Erythrocyte distribution width (RBC) [Ratio] 13.4 % 11.6-14.6 [facility] Erythrocyte distribution wid th standard deviationOrdered By: Janey Sanders on 01-04-2025 Erythrocyte distribution width (RBC) [Ratio] 45.3 fl High 35.1-43.9 [facility] Glomerular filtration rate ( GFR) estimation/1.73 sq m using serum, plasma, or whole bOrdered By: Janey Sanders on 01-04-2025 GFR/1.73 sq M.predicted among non-blacks MDRD (S/P/Bld) [Vol rate/Area] 66 mL/min/{1.73_m2} >60 [facility] Comment on above: mL/min/1.73m2 CKD-EP I Creatinine Equation (2020) Hematocrit Auto (Bld) [Volum e fraction]Ordered By: Janey Sanders on 01-04-2025 Hematocrit (Bld) [Volume fraction] 35.4 % Low 40-54 [facility] Hemoglobin measurementOrdere d By: Janey Sanders on 01-04-2025 Hemoglobin (Bld) [Mass/Vol] 11.3 g/dL Low 13.0-16.5 [facility] Immature granulocytes/100 WB C Auto (Bld)Ordered By: Janey Sanders on 01-04-2025 Immature granulocytes/100 WBC (Bld) 1.100 % High 0.0-0.9 [facility] Comment on above: IG% - Immature Granu locytes (promyelocytes, myelocytes and metamyelocytes) > 1% indicates that a LEFT SHIFT is Present. Iron measurement (mass/mass) Ordered By: Janey Sanders on 01-04-2025 Iron (Unsp spec) [Mass/Mass] 52 ug/dL Low 65-175 [facility] LDL calc ser/plasOrdered By: Janey Sanders on 01-04-2025 Cholesterol in LDL [Mass/Vol] 46 mg/dL [facility] Comment on above: Oipnuykqyn=686-618 m g/dL & Higher Svpo=728 mg/dL or greater Laboratory - Chemistry and C hemistry - challengeOrdered By: Janey Sanders on 01-04-2025 AST [Catalytic activity/Vol] 22 U/L <38 [facility] Lipid Profileon 01-04-2025 CHOL:HDL 2.55 Normal [facility] Comment on above: Order Comment: Order Date: 01/04/25 Order Info: [id number] - CMP Order Info: [id number] - LIPID Order Info: [id number] - MG Order Info: 3 - TSH Order Info: [id number] T4F Performed By: #### L 500.4050, L501.5200, L100.0100, L501.9520, L506.0400, L500.4100 #### [facility] Laboratory [address] [place], [place], [id number] Cholesterol [Mass/Vol] 119 mg/dL Normal <=200 [facility] Comment on above: Order Comment: Order Date: 01/04/25 Order Info: [id number] - CMP Order Info: - LIPID Order Info: [id number] - MG Order Info: [id number] - TSH Order Info: [id number] T4F Result Comment: Chol esterol level, Desirable <200 mg/dL Borderline high cholesterol 200-239 mg/dL High cholesterol >=240 mg/dL Recommendations of the NCEP Adult Treatment Panel for the following risk-cutoff thresholds for the [place] population. Performed By: #### L 500.4050, L501.5200, L100.0100, L501.9520, L506.0400, L500.4100 #### [facility] Laboratory [address] [place], [place], [id number] Cholesterol in HDL [Mass/Vol] 47 mg/dL Normal [facility] Comment on above: Order Comment: Order Date: 01/04/25 Order Info: [id number] - CMP Order Info: [id number] - LIPID Order Info: [id number] - MG Order Info: 3 - TSH Order Info: [id number] - T4F Result Comment: Rachel onal Cholesterol Education Program (NCEP) guidelines: <40 mg/dL: Low HDL-cholesterol (major risk factor for CHD) >= 60 mg/dL: High HDL-cholesterol (negative risk factor for CHD) HDL-cholesterol is affected by a number of factors, e.g. smoking, exercise, hormones, sex and age. Performed By: #### L 500.4050, L501.5200, L100.0100, L501.9520, L506.0400, L500.4100 #### [facility] Laboratory [address] [place], [address] Cholesterol in LDL [Mass/Vol] 46 mg/dL Normal [facility] Comment on above: Order Comment: Order Date: 01/04/25 Order Info: [id number] - CMP Order Info: [id number] - LIPID Order Info: [id number] - MG Order Info: 3 - TSH Order Info: 7 - T4F Result Comment: Bord yuekek=134-100 mg/dL Higher Ixzz=225 mg/dL or greater Performed By: #### L 500.4050, L501.5200, L100.0100, L501.9520, L506.0400, L500.4100 #### [facility] Laboratory [address] [place], [address] Cholesterol in VLDL [Mass/Vol] 27 mg/dL Normal 5-40 [facility] Comment on above: Order Comment: Order Date: 01/04/25 Order Info: [id number] - CMP Order Info: [id number] - LIPID Order Info: [id number] - MG Order Info: 3 - TSH Order Info: 7 - T4F Performed By: #### L 500.4050, L501.5200, L100.0100, L501.9520, L506.0400, L500.4100 #### [facility] Laboratory [address] [place], [address] Triglyceride [Mass/Vol] 133 mg/dL Normal [facility] Comment on above: Order Comment: Order Date: 01/04/25 Order Info: [id number] - CMP Order Info: [id number] - LIPID Order Info: [id number] - MG Order Info: 3 - TSH Order Info: 7 - T4F Result Comment: The drugs N-Acetylcysteine and Metamizole may falsely depress this assay. Normal range: <150 mg/dL Borderline High: 150-199 mg/dL High: 200-499 mg/dL Very High: >500 mg/dL Performed By: #### L 500.4050, L501.5200, L100.0100, L501.9520, L506.0400, L500.4100 #### [facility] [address] [place], [place], [address] MCV (mean corpuscular volume ) determinationOrdered By: Janey Sanders on 01-04-2025 MCV (RBC) [Entitic vol] 91.7 fL 80-94 [facility] Magnesiumon 01-04-2025 Magnesium [Mass/Vol] 2.4 mg/dL High 1.5-2.2 [facility] Comment on above: Order Comment: Order Date: 01/04/25 Order Info: [id number] - CMP Order Info: [id number] - LIPID Order Info: [id number] - MG Order Info: [id number] - TSH Order Info: [id number] - T4F Performed By: #### L 500.4050, L501.5200, L100.0100, L501.9520, L506.0400, L500.4100 #### [facility] [address] [place], [place], [address] Magnesium measurement (mass/ volume)Ordered By: Janey Sanders on 01-04-2025 Magnesium (Unsp spec) [Mass/Vol] 2.4 mg/dL High 1.5-2.2 [facility] Mean corpuscular hemoglobin (MCH) determinationOrdered By: Janey Sanders on 01-04-2025 MCH (RBC) [Entitic mass] 29.3 pg 27.0-32.0 [facility] Mean corpuscular hemoglobin concentration (MCHC) determinationOrdered By: Janey Sanders on 01-04-2025 MCHC (RBC) [Mass/Vol] 31.9 g/dL Low 32-36 [facility] Mean platelet volume determi nationOrdered By: Janey Sanders on 01-04-2025 Platelet mean volume (Bld) [Entitic vol] 9.4 fL 6.2-12.0 [facility] Monocyte percentageOrdered B y: Janey Sanders on 01-04-2025 Monocytes/100 WBC (Bld) 7.6 % 0-10 [facility] Neutrophil percentageOrdered By: Janey Sanders on 01-04-2025 Neutrophils/100 WBC (Bld) 84.4 % High 47-70 [facility] No Panel InformationOrdered By: Janey Sanders on 01-04-2025 Unsaturated Iron Binding Capacity 179 ug/dL Low 228-428 [facility] Nucleated red blood cell per centageOrdered By: Janey Sanders on 01-04-2025 Nucleated RBC/100 WBC (Bld) [Ratio] 0 % 0-5 [facility] Platelet countOrdered By: Neha Sanders on 01-04-2025 Platelets (Bld) [#/Vol] 282 10*3/uL 150-450 [facility] Potassium measurement (mass/ volume)Ordered By: Janey Sanders on 01-04-2025 Potassium (Unsp spec) [Mass/Vol] 4.8 mmol/L 3.3-5.1 [facility] RBC Auto (Bld) [#/Vol]Ordere d By: Janey Sanders on 01-04-2025 RBC (Bld) [#/Vol] 3.86 10*6/uL Low 4.6-6.2 [facility] Screening total cholesterol/ high density lipoprotein (HDL) cholesterol ratioOrdered By: Janey Sanders on 01-04-2025 Cholesterol.total/Choles terol in HDL [Mass ratio] 2.55 {ratio} [facility] Serum creatinine measurement (mass/volume)Ordered By: Janey Sanders on 01-04-2025 Creatinine [Mass/Vol] 1.11 mg/dL 0.70-1.20 [facility] Serum globulin measurementOr dered By: Janey Sanders on 01-04-2025 Globulin (S) [Mass/Vol] 2.8 g/dL 2.2-4.2 [facility] Serum glucose measurement (m ass/volume)Ordered By: Janey Sanders on 01-04-2025 Glucose [Mass/Vol] 120 mg/dL High 70-99 [place] Serum or plasma alanine singletary otransferase (ALT) measurementOrdered By: Janey Sanders on 01-04-2025 ALT [Catalytic activity/Vol] 23 U/L <47 [facility] Serum or plasma albumin andrez urement (mass/volume)Ordered By: Janey Sanders on 01-04-2025 Albumin [Mass/Vol] 3.5 g/dL 3.4-4.8 [place] Serum or plasma albumin/glob ulin mass ratioOrdered By: Janey Sanders on 01-04-2025 Albumin/Globulin [Mass ratio] 1.3 {ratio} 0.9-2.4 [facility] Serum or plasma alkaline shane sphatase measurementOrdered By: Janey Sanders on 01-04-2025 ALP [Catalytic activity/Vol] 72 U/L 40-129 [facility] Serum or plasma calcium andrez urement (mass/volume)Ordered By: Janey Sanders on 01-04-2025 Calcium [Mass/Vol] 9.1 mg/dL 7.6-11.0 [place] Serum or plasma cholesterol in HDL measurement (mass/volume)Ordered By: Janey Sanders on 01-04-2025 Cholesterol in HDL [Mass/Vol] 47 mg/dL >40 [facility] Comment on above: National Cholesterol Education Program (NCEP) guidelines:<40 mg/dL: Low HDL-cholesterol (major risk factor for CHD)>= 60 mg/dL: High HDL-cholesterol (negative risk factor for CHD)HDL-cholesterol is affected by a number of factors, e.g. smoking, exercise, hormones, sex and age. Serum or plasma cholesterol measurement (mass/volume)Ordered By: Janey Sanders on 01-04-2025 Cholesterol [Mass/Vol] 119 mg/dL <201 [facility] Comment on above: Cholesterol level, D esirable <200 mg/dLBorderline high cholesterol 200-239 mg/dLHigh cholesterol >=240 mg/dLRecommendations of the NCEP Adult Treatment Panel for the following risk-cutoff thresholds for the [place] population. Serum or plasma iron saturat ion measurement (mass fraction)Ordered By: Janey Sanders on 01-04-2025 Iron saturation [Mass fraction] 22.5 % 9-55 [facility] Comment on above: Previous reported re sult: 23.0 %Edited by: NAYA on 01/05/25:1058 AMENDED REPORT 01/05/25 1058 IRON SATURATION previously reported as: 23.0 % Serum or plasma thyroperoxid ase antibody assay (units/volume)Ordered By: Janey Sanders on 01-04-2025 TPO Ab Qn 23 [IU]/mL 0-34 [facility] Comment on above: Performed at: [place] [id number] Director: Apollo Mcgill PhD, Phone: [phone] Serum or plasma urea nitroge n measurement (mass/volume)Ordered By: Janey Sanders on 01-04-2025 Urea nitrogen [Mass/Vol] 43 mg/dL High 4-19 [facility] Sodium levelOrdered By: Janey Sanders on 01-04-2025 Sodium [Moles/Vol] 137 mmol/L 133-145 [place] T4 Free Directon 01-04-2025 T4 FREE DIRECT 1.10 ng/dL Normal 0.76-1.46 [facility] Comment on above: Order Comment: Order Date: 01/04/25Order Info: [id number] - CMPOrder Info: [id number] - LIPIDOrder Info: [id number] - MGOrder Info: [id number] - TSHOrder Info: [id number] - T4F Performed By: #### L 501.9985, L500.2500, L501.9520, L100.0100, L101.9900 #### [facility] Laboratory [address] [facility] [place], [address] T4 freeOrdered By: Janey munguia on 01-04-2025 Free T4 [Mass/Vol] 1.10 ng/dL 0.76-1.46 [place] TSH DL <= 0.005 mIU/L QnOrde red By: Janey Sanders on 01-04-2025 TSH Qn 0.362 uIU/mL 0.300-4.200 [facility] Thyroid Stim Hormone (TSH)on 01-04-2025 TSH 0.362 uIU/mL Normal 0.300-4.200 [facility] Comment on above: Order Comment: Order Date: 01/04/25Order Info: [id number] - CMPOrder Info: - LIPIDOrder Info: [id number] - MGOrder Info: 3 - TSHOrder Info: [id number] - T4F Performed By: #### L 501.9985, L500.2500, L501.9520, L100.0100, L101.9900 #### [facility] Laboratory [address] [place], [place], [id number] Total proteinOrdered By: Hunter Sanders on 01-04-2025 Protein [Mass/Vol] 6.3 g/dL 5.9-8.4 [place] Triglycerides measurementOrd ered By: Janey Sanders on 01-04-2025 Triglyceride [Mass/Vol] 133 mg/dL <199 [facility] Comment on above: The drugs N-Acetylcy steine and Metamizole may falsely depress this assay. Normal range: <150 mg/dLBorderline High: 150-199 mg/dLHigh: 200-499 mg/dLVery High: >500 mg/dL Vitamin B12on 01-04-2025 Cobalamin (Vitamin B12) [Mass/Vol] 490 pg/mL Normal 180-914 [facility] Comment on above: Order Comment: Order Date: 01/04/25Order Info: [id number] - CMPOrder Info: - LIPIDOrder Info: [id number] - MGOrder Info: 3 - TSHOrder Info: [id number] - T4F Performed By: #### L 501.9985, L500.2500, L501.9520, L100.0100, L101.9900 #### [facility] Laboratory [address] [place], [place], [address] Vitamin B12 ser/plasOrdered By: Janey Sanders on 01-04-2025 Cobalamin (Vitamin B12) [Mass/Vol] 490 pg/mL 180-914 [facility] Vitamin D,25 Hydroxyon 01-04 Vitamin D 25-OH 23.0 ng/mL Low 30-100 [facility] Comment on above: Order Comment: Order Date: 01/04/25Order Info: [id number] - CMPOrder Info: [id number] - LIPIDOrder Info: [id number] - MGOrder Info: [id number] - TSHOrder Info: [id number] - T4F Result Comment: Keshia min D Status Deficiency: <20 ng/mL (50nmol/L) Insufficiency: 20-30 ng/mL (50-75 nmol/L) Sufficiency: 30-100 ng/mL (75-250 nmol/L) Toxicity: >100 ng/mL (>250 nmol/L) Performed By: #### L 501.9985, L500.2500, L501.9520, L100.0100, L101.9900 #### [facility] Laboratory [facility] [address] [place], [place], [address] White blood cell (WBC) count Ordered By: Janey Sanders on 01-04-2025 WBC (Bld) [#/Vol] 11.0 10*3/uL 4.4-11.0 [facility] .Auto Diffon 12-27-2024 Basophil, Absolute 0.0 10 3/mcL Normal 0.0-0.3 [facility] Comment on above: Performed By: #### A MOHINDER, CBC, BMP, ADIFF, GFR #### [address] [address] Basophils/100 WBC (Bld) 0.2 % Normal 0.0-2.5 [facility] Comment on above: Performed By: #### A MOHINDER, CBC, BMP, ADIFF, GFR #### [address] [address] Eosinophil, Absolute 0.0 10 3/mcL Normal 0.0-0.7 [facility] Comment on above: Performed By: #### A MOHINDER, CBC, BMP, ADIFF, GFR #### [place] [address] [place], [place] [address] Eosinophils/100 WBC (Bld) 0.0 % Normal 0.0-6.0 [facility] Comment on above: Performed By: #### A MOHINDER, CBC, BMP, ADIFF, GFR #### [address] [address] Lymphocyte, Absolute 0.5 10 3/mcL Low 0.9-4.3 [facility] Comment on above: Performed By: #### A MOHINDER, CBC, BMP, ADIFF, GFR #### [address] [address] Lymphocytes/100 WBC (Bld) 3.2 % Low 20.0-40.0 [facility] Comment on above: Performed By: #### A MOHINDER, CBC, BMP, ADIFF, GFR #### [address] [address] Monocyte, Absolute 1.0 10 3/mcL Normal 0.1-1.4 [facility] Comment on above: Performed By: #### A MOHINDER, CBC, BMP, ADIFF, GFR #### [address] [address] Monocytes/100 WBC (Bld) 6.8 % Normal 2.0-13.0 [facility] Comment on above: Performed By: #### A MOHINDER, CBC, BMP, ADIFF, GFR #### [address] [address] Neutrophils/100 WBC (Bld) 89.8 % High 50.0-75.0 [facility] Comment on above: Performed By: #### A MOHINDER, CBC, BMP, ADIFF, GFR #### [address] [address] .GFRon 12-27-2024 Estimated Glomerular Filtration Rate 66 ml/min/1.73sqm Normal [facility] Comment on above: Result Comment: Stages of Chronic Kidney Disease (CKD) Stage Description eGFR(ml/min/1.73 sq.m.) CKD 1 Normal kidney function or >=90 normal kindney function with possible kidney damage (ex. Proteinuria) CKD 2 Kidney damage with mild loss 60-89 of kidney function CKD 3a Mild to moderate loss of kidney 45-59 function CKD 3b Moderate to severe loss of 30-44 of kindey function CKD 4 Severe loss of kidney function 15-29 CKD 5 Kidney failure <15 Note: (go live 2024) the eGFR calculation was updated to the 2020 CKD-EPI creatinine equation without a race factor to calculate the eGFR results. Performed By: #### A MOHINDER, CBC, BMP, ADIFF, GFR #### [address] [address] .NEUABSon 12-27-2024 Neutrophil, Absolute 13.2 10 3/mcL High 2.3-8.1 [facility] Comment on above: Performed By: #### A MOHINDER, CBC, BMP, ADIFF, GFR #### [address] [address] BMPon 12-27-2024 BUN/Creatinine Ratio 46 ratio High 7-27 [facility] Comment on above: Performed By: #### A MOHINDER, CBC, BMP, ADIFF, GFR #### [address] [address] Calcium [Mass/Vol] 8.7 mg/dL Normal 8.4-10.2 [facility] Comment on above: Performed By: #### A MOHINDER, CBC, BMP, ADIFF, GFR #### [address] [address] Chloride [Moles/Vol] 102 mmol/L Normal 98-107 [facility] Comment on above: Performed By: #### A MOHINDER, CBC, BMP, ADIFF, GFR #### [address] [address] CO2 [Moles/Vol] 30 mmol/L Normal 23-31 [facility] Comment on above: Performed By: #### A MOHINDER, CBC, BMP, ADIFF, GFR #### [address] [address] Creatinine [Mass/Vol] 1.11 mg/dL Normal 0.67-1.17 [facility] Comment on above: Performed By: #### A MOHINDER, CBC, BMP, ADIFF, GFR #### [address] [address] Electrolyte Balance 4.0 mEq/L Normal 4.0-15.0 [facility] Comment on above: Performed By: #### A MOHINDER, CBC, BMP, ADIFF, GFR #### [place] [address] Glucose [Mass/Vol] 214 mg/dL High 83-110 [facility] Comment on above: Performed By: #### A MOHINDER, CBC, BMP, ADIFF, GFR #### [place] [address] Potassium [Moles/Vol] 5.6 mmol/L High 3.5-5.1 [facility] Comment on above: Performed By: #### A MOHINDER, CBC, BMP, ADIFF, GFR #### [place] [address] Sodium [Moles/Vol] 136 mmol/L Normal 136-145 [facility] Comment on above: Performed By: #### A MOHINDER, CBC, BMP, ADIFF, GFR #### [place] [address] Urea nitrogen [Mass/Vol] 51 mg/dL High 7-18 [facility] Comment on above: Performed By: #### A MOHINDER, CBC, BMP, ADIFF, GFR #### [place] [address] CBCon 12-27-2024 Erythrocyte distribution width (RBC) [Ratio] 14.4 % Normal 11.5-15.5 [facility] Comment on above: Performed By: #### A MOHINDER, CBC, BMP, ADIFF, GFR #### [place] [address] Hematocrit (Bld) [Volume fraction] 36.4 % Low 40.0-52.0 [facility] Comment on above: Performed By: #### A MOHINDER, CBC, BMP, ADIFF, GFR #### [place] [id number] Hgb 12.3 G/dL Low 13.0-17.5 [facility] Comment on above: Performed By: #### A MOHINDER, CBC, BMP, ADIFF, GFR #### [address] [address] MCH (RBC) [Entitic mass] 29.3 pg Normal 27.0-33.0 [facility] Comment on above: Performed By: #### A MOHINDER, CBC, BMP, ADIFF, GFR #### [place] [address] MCHC 33.8 G/dL Normal 32.0-36.0 [facility] Comment on above: Performed By: #### A MOHINDER, CBC, BMP, ADIFF, GFR #### [place] [address] MCV (RBC) [Entitic vol] 86.9 fL Normal 81.0-100.0 [facility] Comment on above: Performed By: #### A MOHINDER, CBC, BMP, ADIFF, GFR #### [address] [address] Platelet 177 10 3/mcL Normal 150-450 [facility] Comment on above: Performed By: #### A MOHINDER, CBC, BMP, ADIFF, GFR #### [address] [address] Platelet mean volume (Bld) [Entitic vol] 7.8 fL Normal 6.4-10.5 [facility] Comment on above: Performed By: #### A MOHINDER, CBC, BMP, ADIFF, GFR #### [address] [address] RBC 4.19 10 6/mcL Low 4.50-6.00 [facility] Comment on above: Performed By: #### A MOHINDER, CBC, BMP, ADIFF, GFR #### [address] [address] WBC 14.7 10 3/mcL High 4.5-10.8 [facility] Comment on above: Performed By: #### A MOHINDER, CBC, BMP, ADIFF, GFR #### [place] [address] [place], [place] [address] KOrdered By: SYSTEM SYSTEM o n 12-27-2024 Potassium [Moles/Vol] 5.3 mmol/L High 3.5-5.1 AO ADM SS Comment on above: Performed By: #### K #### [address] [address] LABORATORYOrdered By: Louisa Turner on 12-27-2024 Blood Glucose Testing Reason Routine (12/27/24 11:44 AM) [facility] Work Phone: Glucose [Mass/Vol] 137 mg/dL High 82 - 115 mg/dL [facility] Work Phone: Blood Glucose Testing Reason Routine (12/27/24 8:21 AM) [facility] Work Phone: Glucose [Mass/Vol] 154 mg/dL High 82 - 115 mg/dL [facility] Work Phone: LABORATORYOrdered By: SYSTEM SYSTEM on 12-27-2024 Basophils (Bld) [#/Vol] 0.0 103/mcL Normal 0.0 - 0.3 10^3/mcL AO Workflow SS Basophils/100 WBC (Bld) 0.2 % Normal 0.0 - 2.5 % AO Workflow SS Calcium [Mass/Vol] 8.7 mg/dL Normal 8.4 - 10. 2 mg/dL AO ADM SS Chloride [Moles/Vol] 102 mmol/L Normal 98 - 10 7 mmol/L AO ADM SS CO2 [Moles/Vol] 30 mmol/L Normal 23 - 31 mmol/L AO ADM SS Creatinine [Mass/Vol] 1.11 mg/dL Normal 0.67 - 1.17 mg/dL AO ADM SS Electrolyte Balance 4.0 mEq/L Normal 4.0 - 15 .0 mEq/L AO ADM SS Eosinophil, Absolute 0.0 103/mcL Normal 0.0 - 0 .7 10^3/mcL AO Workflow SS Eosinophils/100 WBC (Bld) 0.0 % Normal 0.0 - 6.0 % AO Workflow SS Erythrocyte distribution width (RBC) [Ratio] 14.4 % Normal 11.5 - 15.5 % AO Workflow SS Estimated Glomerular Filtration Rate 66 ml/min/1.73sqm Invalid Interpretation Code AO Chemistry S Comment on above: Interpretive Data: Stages of Chronic Kidney Disease (CKD) Stage Description eGFR(ml/min/1.73 sq.m.) CKD 1 Normal kidney function or >=90 normal kindney function with possible kidney damage (ex. Proteinuria) CKD 2 Kidney damage with mild loss 60-89 of kidney function CKD 3a Mild to moderate loss of kidney 45-59 function CKD 3b Moderate to severe loss of 30-44 of kindey function CKD 4 Severe loss of kidney function 15-29 CKD 5 Kidney failure <15 Note: (go live 2024) the eGFR calculation was updated to the 2020 CKD-EPI creatinine equation without a race factor to calculate the eGFR results. Glucose [Mass/Vol] 214 mg/dL High 83 - 110 mg/dL AO ADM SS Hematocrit (Bld) [Volume fraction] 36.4 % Low 40.0 - 52.0 % AO Workflow SS Hemoglobin (Bld) [Mass/Vol] 12.3 G/dL Low 13.0 - 17.5 G/dL AO Workflow SS Lymphocytes (Bld) [#/Vol] 0.5 103/mcL Low 0.9 - 4.3 10^3/mcL AO Workflow SS Lymphocytes/100 WBC (Bld) 3.2 % Low 20.0 - 40.0 % AO Workflow SS MCH (RBC) [Entitic mass] 29.3 pg Normal 27. 0 - 33.0 pg AO Workflow SS MCHC 33.8 G/dL Normal 32.0 - 36.0 G/dL AO Workflow SS MCV (RBC) [Entitic vol] 86.9 fL Normal 81.0 - 100.0 fL AO Workflow SS Monocytes (Bld) [#/Vol] 1.0 103/mcL Normal 0.1 - 1.4 10^3/mcL AO Workflow SS Monocytes/100 WBC (Bld) 6.8 % Normal 2.0 - 13.0 % AO Workflow SS Neutrophils (Bld) [#/Vol] 13.2 103/mcL High 2.3 - 8.1 10^3/mcL AO Workflow SS Neutrophils/100 WBC (Bld) 89.8 % High 50.0 - 75.0 % AO Workflow SS Platelet mean volume (Bld) [Entitic vol] 7.8 fL Normal 6.4 - 10.5 fL AO Workflow SS Platelets (Bld) [#/Vol] 177 103/mcL Normal 150 - 450 10^3/mcL AO Workflow SS Potassium [Moles/Vol] 5.6 mmol/L High 3.5 - 5.1 mmol/L AO ADM SS RBC (Bld) [#/Vol] 4.19 106/mcL Low 4.50 - 6.0 0 10^6/mcL AO Workflow SS Sodium [Moles/Vol] 136 mmol/L Normal 136 - 145 mmol/L AO ADM SS Urea nitrogen [Mass/Vol] 51 mg/dL High 7 - 18 mg/dL AO ADM SS Urea nitrogen/Creatinine [Mass ratio] 46 ratio High 7 - 27 ratio AO ADM SS WBC (Bld) [#/Vol] 14.7 103/mcL High 4.5 - 10.8 10^3/mcL AO Workflow SS ABO/Rh (Gel)on 12-26-2024 ABO/Rh Interp Positive Invalid Interpretation Code [facility] Comment on above: Performed By: #### A SARAH ABSGEL #### [address] [address] ABS (Gel)on 12-26-2024 ABSC Interp (Gel) Negative Normal [facility] Comment on above: Performed By: #### Judith SMITH ABSGEL #### [address] [address] LABORATORYOrdered By: Pablo Masr on 12-26-2024 Blood Glucose Testing Reason Routine (12/26/24 9:01 PM) [facility] Work Phone: Glucose [Mass/Vol] 199 mg/dL High 82 - 115 mg/dL [facility] Work Phone: LABORATORYOrdered By: Angela Gonzalez on 12-26-2024 ABO and Rh group Nom (Bld) Blood group O Rh(D) positive Invalid Interpretation Code AO BB Auto SS Blood group antibody screen Ql Negative ABSC (12/26/24 6:05 AM) Normal AO BB Auto SS XR FLUORO 1-2 HRS TECH TIMEo n 12-26-2024 XR FLUORO 1-2 HRS TECH TIME ORIGINAL Images acquired, not reported on this accession number. Normal [facility] XR HIP RIGHT W/PELVIS 4 VIEW Son 12-26-2024 XR HIP RIGHT W/PELVIS 4 VIEWS ORIGINAL EXAMINATION: 2 XRAY VIEWS OF THE RIGHT HIP, 1 VIEWS OF THE PELVIS12/26/2024 9:36 am HIP UNILATERAL MIN 4V W/PELVIS RIGHT COMPARISON: None HISTORY: ORDERING SYSTEM PROVIDED HISTORY: Reason for Exam: Status Post Arthroplasty FINDINGS: No acute fracture or dislocation is identified. Bilateral hip arthroplasties noted. Mild enthesophytes seen in the pelvis. The joint space is maintained. There is no radiopaque foreign body. Right hip demonstrates anatomic alignment. No periprosthetic fracture. Air seen in the soft tissues of the right hip, presumably related to recent surgery. IMPRESSION: Bilateral hip arthroplasties. There is anatomic alignment of the new right hip arthroplasty Interpreted by: Sanjay Curry MD Preliminary Report By: Sanjay Curry MD Electronically signed By Sanjay Curry MD Dictated Date: 12/26/2024 9:41:11 AM Prelim Date: 12/26/2024 9:42:17 AM Sign Date: 12/26/2024 9:42:17 AM Ordering Provider: HERSON HE Normal [facility] ALBon 12-14-2024 Albumin Level 3.9 G/dL Normal 3.4-4.8 [facility] Comment on above: Performed By: #### G FR, ALB, BMP ####[facility] [place], [place] [address] .Auto Diffon 12-13-2024 Basophil, Absolute 0.0 10 3/mcL Normal 0.0-0.3 [facility] Comment on above: Performed By: #### A BSDVAID ABOGEL, CBC, ADIFF, ANEU ####[facility] [place], [place] [address] Basophils/100 WBC (Bld) 0.5 % Normal 0.0-2.5 [facility] Comment on above: Performed By: #### A BSGEL, ABOGEL, CBC, ADIFF, ANEU ####[address] [place], [place] [address] Eosinophil, Absolute 0.2 10 3/mcL Normal 0.0-0.7 [facility] Comment on above: Performed By: #### A BSGEL, ABOGEL, CBC, ADIFF, ANEU ####[address] [place], [place] [address] Eosinophils/100 WBC (Bld) 2.6 % Normal 0.0-6.0 [facility] Comment on above: Performed By: #### A BSGEL, ABOGEL, CBC, ADIFF, ANEU ####[address] [place], [place] [address] Lymphocyte, Absolute 1.0 10 3/mcL Normal 0.9-4.3 [facility] Comment on above: Performed By: #### A BSGEL, ABOGEL, CBC, ADIFF, ANEU ####[address] [place], [place] [address] Lymphocytes/100 WBC (Bld) 14.2 % Low 20.0-40.0 [facility] Comment on above: Performed By: #### A BSGEL, ABOGEL, CBC, ADIFF, ANEU ####[address] [place], [place] [address] Monocyte, Absolute 0.7 10 3/mcL Normal 0.1-1.4 [facility] Comment on above: Performed By: #### A BSGEL, ABOGEL, CBC, ADIFF, ANEU ####[address] [place], [place] [address] Monocytes/100 WBC (Bld) 9.0 % Normal 2.0-13.0 [facility] Comment on above: Performed By: #### A BSGEL, ABOGEL, CBC, ADIFF, ANEU ####[address] [place], [place] [address] Neutrophils/100 WBC (Bld) 73.7 % Normal 50.0-75.0 [facility] Comment on above: Performed By: #### A BSGEL, ABOGEL, CBC, ADIFF, ANEU ####[facility] [place], [place] [address] .GFRon 12-13-2024 Estimated Glomerular Filtration Rate 66 ml/min/1.73sqm Normal [facility] Comment on above: Result Comment: Stages of Chronic Kidney Disease (CKD) Stage Description eGFR(ml/min/1.73 sq.m.) CKD 1 Normal kidney function or >=90 normal kindney function with possible kidney damage (ex. Proteinuria) CKD 2 Kidney damage with mild loss 60-89 of kidney function CKD 3a Mild to moderate loss of kidney 45-59 function CKD 3b Moderate to severe loss of 30-44 of kindey function CKD 4 Severe loss of kidney function 15-29 CKD 5 Kidney failure <15 Note: (go live 2024) the eGFR calculation was updated to the 2020 CKD-EPI creatinine equation without a race factor to calculate the eGFR results. Performed By: #### G FR, ALB, BMP ####[address] [place], [place] [address] .NEUABSon 12-13-2024 Neutrophil, Absolute 5.3 10 3/mcL Normal 2.3-8.1 [facility] Comment on above: Performed By: #### A BSGEL, ABOGEL, CBC, ADIFF, ANEU ####[facility] [place], [place] [address] ABO/Rh (Gel)on 12-13-2024 ABO/Rh Interp Positive Invalid Interpretation Code [facility] Comment on above: Performed By: #### A BSGEL, ABOGEL, CBC, ADIFF, ANEU ####[facility] [place], [place] [address] ABS (Gel)on 12-13-2024 ABSC Interp (Gel) Negative Normal [facility] Comment on above: Performed By: #### A BSGEL, ABOGEL, CBC, ADIFF, ANEU ####[facility] [place], [place] [address] BMPon 12-13-2024 BUN/Creatinine Ratio 43 ratio High 7-27 [facility] Comment on above: Performed By: #### G FR, ALB, BMP ####[facility] [place], [place] [address] Calcium [Mass/Vol] 9.5 mg/dL Normal 8.4-10.2 [facility] Comment on above: Performed By: #### Heather SMITH ALB, BMP ####[address] [place], [place] [address] Chloride [Moles/Vol] 106 mmol/L Normal 98-107 [facility] Comment on above: Performed By: #### Heather FR ALB, BMP ####[address] [place], [place] [address] CO2 [Moles/Vol] 27 mmol/L Normal 23-31 [facility] Comment on above: Performed By: #### Heather SMITH ALB, BMP ####[address] [place], [place] [address] Creatinine [Mass/Vol] 1.11 mg/dL Normal 0.67-1.17 [facility] Comment on above: Performed By: #### Heather SMITH ALB, BMP ####[address] [place], [place] [address] Electrolyte Balance 7.0 mEq/L Normal 4.0-15.0 [facility] Comment on above: Performed By: #### Heather SMITH ALB, BMP ####[address] [place], [place] [address] Glucose [Mass/Vol] 109 mg/dL Normal 83-110 [facility] Comment on above: Performed By: #### Heather SMITH, ALB, BMP ####[address] [place], [place] [address] Potassium [Moles/Vol] 4.9 mmol/L Normal 3.5-5.1 [facility] Comment on above: Performed By: #### Heather FR, ALB, BMP ####[address] [place], [place] [address] Sodium [Moles/Vol] 140 mmol/L Normal 136-145 [facility] Comment on above: Performed By: #### Heather FR ALB, BMP ####[address] [place], [place] [address] Urea nitrogen [Mass/Vol] 48 mg/dL High 7-18 [facility] Comment on above: Performed By: #### G FR, ALB, BMP ####[address] [place], [place] [address] CBCon 12-13-2024 Erythrocyte distribution width (RBC) [Ratio] 14.6 % Normal 11.5-15.5 [facility] Comment on above: Order Comment: Pre-A dmission Testing Performed By: #### A BSGEL, ABOGEL, CBC, ADIFF, ANEU ####[address] [place], [place] [address] Hematocrit (Bld) [Volume fraction] 42.6 % Normal 40.0-52.0 [facility] Comment on above: Order Comment: Pre-A dmission Testing Performed By: #### A BSGEL, ABOGEL, CBC, ADIFF, ANEU ####[address] [place], [place] [address] Hgb 14.1 G/dL Normal 13.0-17.5 [facility] Comment on above: Order Comment: Pre-A dmission Testing Performed By: #### A BSGEL, ABOGEL, CBC, ADIFF, ANEU ####[address] [place], [place] [address] MCH (RBC) [Entitic mass] 28.9 pg Normal 27.0-33.0 [facility] Comment on above: Order Comment: Pre-A dmission Testing Performed By: #### A BSGEL, ABOGEL, CBC, ADIFF, ANEU ####[address] [place], [place] [address] MCHC 33.2 G/dL Normal 32.0-36.0 [facility] Comment on above: Order Comment: Pre-A dmission Testing Performed By: #### A BSGEL, ABOGEL, CBC, ADIFF, ANEU ####[address] [place], [place] [address] MCV (RBC) [Entitic vol] 87.1 fL Normal 81.0-100.0 [facility] Comment on above: Order Comment: Pre-A dmission Testing Performed By: #### A BSGEL, ABOGEL, CBC, ADIFF, ANEU ####[address] [place], [place] [address] Platelet 192 10 3/mcL Normal 150-450 [facility] Comment on above: Order Comment: Pre-A dmission Testing Performed By: #### A BSGEL, ABOGEL, CBC, ADIFF, ANEU ####[address] [place], [place] [address] Platelet mean volume (Bld) [Entitic vol] 7.9 fL Normal 6.4-10.5 [facility] Comment on above: Order Comment: Pre-A dmission Testing Performed By: #### A BSGEL, ABOGEL, CBC, ADIFF, ANEU ####[address] [place], [place] [address] RBC 4.88 10 6/mcL Normal 4.50-6.00 [facility] Comment on above: Order Comment: Pre-A dmission Testing Performed By: #### A BSGEL, ABOGEL, CBC, ADIFF, ANEU ####[address] [place], [place] [address] WBC 7.2 10 3/mcL Normal 4.5-10.8 [facility] Comment on above: Order Comment: Pre-A dmission Testing Performed By: #### A BSGEL, ABOGEL, CBC, ADIFF, ANEU ####[address] [place], [place] [address] LABORATORYOrdered By: Yinka Campo on 12-13-2024 ABO and Rh group Nom (Bld) Blood group O Rh(D) positive Invalid Interpretation Code AO BB Auto SS Blood group antibody screen Ql Negative ABSC (12/13/24 9:39 AM) Normal AO BB Auto SS LABORATORYOrdered By: [employer] on 12-13-2024 Basophils (Bld) [#/Vol] 0.0 103/mcL Normal 0.0 - 0.3 10^3/mcL AO Workflow SS Basophils/100 WBC (Bld) 0.5 % Normal 0.0 - 2.5 % AO Workflow SS Calcium [Mass/Vol] 9.5 mg/dL Normal 8.4 - 10. 2 mg/dL AO ADM SS Chloride [Moles/Vol] 106 mmol/L Normal 98 - 10 7 mmol/L AO ADM SS CO2 [Moles/Vol] 27 mmol/L Normal 23 - 31 mmol/L AO ADM SS Creatinine [Mass/Vol] 1.11 mg/dL Normal 0.67 - 1.17 mg/dL AO ADM SS Electrolyte Balance 7.0 mEq/L Normal 4.0 - 15 .0 mEq/L AO ADM SS Eosinophil, Absolute 0.2 103/mcL Normal 0.0 - 0 .7 10^3/mcL AO Workflow SS Eosinophils/100 WBC (Bld) 2.6 % Normal 0.0 - 6.0 % AO Workflow SS Erythrocyte distribution width (RBC) [Ratio] 14.6 % Normal 11.5 - 15.5 % AO Workflow SS Estimated Glomerular Filtration Rate 66 ml/min/1.73sqm Invalid Interpretation Code AO Chemistry S Comment on above: Interpretive Data: Stages of Chronic Kidney Disease (CKD) Stage Description eGFR(ml/min/1.73 sq.m.) CKD 1 Normal kidney function or >=90 normal kindney function with possible kidney damage (ex. Proteinuria) CKD 2 Kidney damage with mild loss 60-89 of kidney function CKD 3a Mild to moderate loss of kidney 45-59 function CKD 3b Moderate to severe loss of 30-44 of kindey function CKD 4 Severe loss of kidney function 15-29 CKD 5 Kidney failure <15 Note: (go live 2024) the eGFR calculation was updated to the 2020 CKD-EPI creatinine equation without a race factor to calculate the eGFR results. Glucose [Mass/Vol] 109 mg/dL Normal 83 - 110 mg/dL AO ADM SS Hematocrit (Bld) [Volume fraction] 42.6 % Normal 40.0 - 52.0 % AO Workflow SS Hemoglobin (Bld) [Mass/Vol] 14.1 G/dL Normal 13.0 - 17.5 G/dL AO Workflow SS Lymphocytes (Bld) [#/Vol] 1.0 103/mcL Normal 0.9 - 4.3 10^3/mcL AO Workflow SS Lymphocytes/100 WBC (Bld) 14.2 % Low 20.0 - 40.0 % AO Workflow SS MCH (RBC) [Entitic mass] 28.9 pg Normal 27. 0 - 33.0 pg AO Workflow SS MCHC 33.2 G/dL Normal 32.0 - 36.0 G/dL AO Workflow SS MCV (RBC) [Entitic vol] 87.1 fL Normal 81.0 - 100.0 fL AO Workflow SS Monocytes (Bld) [#/Vol] 0.7 103/mcL Normal 0.1 - 1.4 10^3/mcL AO Workflow SS Monocytes/100 WBC (Bld) 9.0 % Normal 2.0 - 13.0 % AO Workflow SS Neutrophils (Bld) [#/Vol] 5.3 103/mcL Normal 2.3 - 8.1 10^3/mcL AO Workflow SS Neutrophils/100 WBC (Bld) 73.7 % Normal 50.0 - 75.0 % AO Workflow SS Platelet mean volume (Bld) [Entitic vol] 7.9 fL Normal 6.4 - 10.5 fL AO Workflow SS Platelets (Bld) [#/Vol] 192 103/mcL Normal 150 - 450 10^3/mcL AO Workflow SS Potassium [Moles/Vol] 4.9 mmol/L Normal 3.5 - 5.1 mmol/L AO ADM SS RBC (Bld) [#/Vol] 4.88 106/mcL Normal 4.50 - 6.0 0 10^6/mcL AO Workflow SS Sodium [Moles/Vol] 140 mmol/L Normal 136 - 145 mmol/L AO ADM SS Urea nitrogen [Mass/Vol] 48 mg/dL High 7 - 18 mg/dL AO ADM SS Urea nitrogen/Creatinine [Mass ratio] 43 ratio High 7 - 27 ratio AO ADM SS WBC (Bld) [#/Vol] 7.2 103/mcL Normal 4.5 - 10.8 10^3/mcL AO Workflow SS LABORATORYOrdered By: Silvana Herrera on 12-13-2024 MRSA (PCR) Not Detected 1 (12/13/24 9:39 AM) Normal Not Detected Auto Viro/Sero SS Comment on above: Result Comment: Note s [id number] MRSA PCR Int MRSA DNA not detecte d by Real-Time Polymerase Chain Reaction (PCR). A negative result may be due to intermittent colonization. Colonization may vary depending on patient treatment, patient status, or exposure to high-risk environments. As with all PCR based in vitro diagnostic tests, extremely low levels of target below the limit of detection of the assay may be detected, but results may not be reproducible. Invalid Interpretation Code Auto Viro/Sero SS MRSAPCRon 12-13-2024 MRSA (PCR) Not detected Normal Not Detected [facility] Comment on above: Result Comment: Note s [id number] Performed By: #### M RSAPCR ####[facility] [place] [address] MRSA PCR Int Normal [facility] Comment on above: Result Comment: MRSA DNA not detected by Real-Time Polymerase Chain Reaction (PCR). A negative result may be due to intermittent colonization. Colonization may vary depending on patient treatment, patient status, or exposure to high-risk environments. As with all PCR based in vitro diagnostic tests, extremely low levels of target below the limit of detection of the assay may be detected, but results may not be reproducible. See Below Performed By: #### M RSAPCR ####[facility] [place] [address] Testicular with Arterial Bruno won 12-01-2024 Testicular with Arterial Flow [facility] Imaging Services [address] [place] [id number] Testicular with Arterial Flow MR#: [id number] Acct: [id number] Name: LUC GANNON Rep #: [id number] : 1940 M 84 From: Mildred Paredes nd, MD PCP: Dr. Mary Abernathy MD Status: REG CLI Study: Testicular with Arterial Flow Date of Exam: Exam# [id number] Ordering Dr: Mary Abernathy MD PROCEDURE: TESTICULAR WITH ARTERIAL FLOW 12/01/2024 REASON FOR EXAM: RIGHT SCROTAL SWELLING TECHNIQUE: Samson scale imaging and color and spectral Doppler analysis of the scrotal contents. COMPARISON: None. FINDINGS: RIGHT testicle: 2.6 x 2.3 x 1.1 cm Homogeneous echotexture. No intratesticular mass. No hydrocele or large varicocele. Right epididymis: Unremarkable LEFT testicle: 2.5 x 2.1 x 1.4 cm Homogeneous echotexture. No intratesticular mass. No hydrocele or large varicocele. Left epididymis: Unremarkable DOPPLER FINDINGS: Symmetric color doppler blood flow signal at both testes. Normal arterial inflow and venous outflow waveforms at both testes. US/Testicular with Arterial Flow IMPRESSION: No ultrasound evidence of testicular torsion. No intratesticular mass. Visualization of the adjacent tissues is limited. If concern for cutaneous/subcutaneous edema or mass, recommend evaluation with focused ultrasound. Reading Location: [facility] CC: Dr. Mary Abernathy MD Regulatory Law Specialist: Signed Normal [facility] Anion gap in Serum or Plasma Ordered By: Kp James on 11-24-2024 Anion gap [Moles/Vol] 9 mmol/L 5-15 [facility] BUN/creatinine ratioOrdered By: Kp James on 11-24-2024 Urea nitrogen/Creatinine [Mass ratio] 32.4 mg/mg High 10-20 [facility] Bilirubin, totalOrdered By: Kp James on 11-24-2024 Bilirubin [Mass/Vol] 0.50 mg/dL 0.00-1.30 [facility] Carbon dioxide, total [Moles /volume] in Central venous bloodOrdered By: Kp James on 11-24-2024 CO2 [Moles/Vol] 25.2 mmol/L 21.0-32.0 [facility] Chloride assayOrdered By: Candis James on 11-24-2024 Chloride [Moles/Vol] 106 mmol/L 98-108 [facility] Comprehensive Metabolic Prof ilon 11-24-2024 Albumin [Mass/Vol] 4.1 g/dL Normal 3.4-4.8 [place] Comment on above: Performed By: #### L 501.9985, L500.2500, L501.9520, L100.0100, L101.9900 #### [facility] Laboratory [address] [place], [address] Albumin/Globulin [Mass ratio] 1.6 {ratio} Normal 0.9-2.4 [facility] Comment on above: Performed By: #### L 501.9985, L500.2500, L501.9520, L100.0100, L101.9900 #### [facility] [address] [place], [address] ALK PHOS 87 U/L Normal 40-129 [facility] Comment on above: Performed By: #### L 501.9985, L500.2500, L501.9520, L100.0100, L101.9900 #### [facility] [address] [place], [address] ALT [Catalytic activity/Vol] 19 U/L Normal <=46 [facility] Comment on above: Performed By: #### L 501.9985, L500.2500, L501.9520, L100.0100, L101.9900 #### [facility] [address] [place], [address] AST [Catalytic activity/Vol] 18 U/L Normal <=37 [facility] Comment on above: Performed By: #### L 501.9985, L500.2500, L501.9520, L100.0100, L101.9900 #### [facility] [address] [place], [address] Bilirubin [Mass/Vol] 0.50 mg/dL Normal 0.00-1.30 [facility] Comment on above: Performed By: #### L 501.9985, L500.2500, L501.9520, L100.0100, L101.9900 #### [facility] [address] [place], [address] BUN/CRE 32.4 RATIO High 10-20 [facility] Comment on above: Performed By: #### L 501.9985, L500.2500, L501.9520, L100.0100, L101.9900 #### [facility] [address] [place], [address] Calcium [Mass/Vol] 9.4 mg/dL Normal 7.6-11.0 [place] Comment on above: Performed By: #### L 501.9985, L500.2500, L501.9520, L100.0100, L101.9900 #### [facility] [address] [place], [address] Chloride [Moles/Vol] 106 mmol/L Normal 98-108 [facility] Comment on above: Performed By: #### L 501.9985, L500.2500, L501.9520, L100.0100, L101.9900 #### [facility] [address] [place], [address] CO2 [Moles/Vol] 25.2 mmol/L Normal 21.0-32.0 [facility] Comment on above: Performed By: #### L 501.9985, L500.2500, L501.9520, L100.0100, L101.9900 #### [facility] [address] [place], [address] Creatinine [Mass/Vol] 1.31 mg/dL High 0.70-1.20 [facility] Comment on above: Performed By: #### L 501.9985, L500.2500, L501.9520, L100.0100, L101.9900 #### [facility] [address] [place], [address] GAP 9 Normal 5-15 [facility] Comment on above: Performed By: #### L 501.9985, L500.2500, L501.9520, L100.0100, L101.9900 #### [facility] [address] [place], [address] GFR/1.73 sq M.predicted among non-blacks MDRD (S/P/Bld) [Vol rate/Area] 54 mL/min/{1.73_m2} Low >60 [facility] Comment on above: Result Comment: mL/m in/1.73m2 CKD-EPI Creatinine Equation (2020) Performed By: #### L 501.9985, L500.2500, L501.9520, L100.0100, L101.9900 #### [facility] [address] [place], [address] Globulin (S) [Mass/Vol] 2.6 g/dL Normal 2.2-4.2 [facility] Comment on above: Performed By: #### L 501.9985, L500.2500, L501.9520, L100.0100, L101.9900 #### [facility] [address] [place], [address] Glucose [Mass/Vol] 125 mg/dL High 70-99 [place] Comment on above: Performed By: #### L 501.9985, L500.2500, L501.9520, L100.0100, L101.9900 #### [facility] [address] [place], [address] Potassium [Moles/Vol] 5.1 mmol/L Normal 3.3-5.1 [facility] Comment on above: Performed By: #### L 501.9985, L500.2500, L501.9520, L100.0100, L101.9900 #### [facility] [address] [place], [address] Sodium [Moles/Vol] 141 mmol/L Normal 133-145 [place] Comment on above: Performed By: #### L 501.9985, L500.2500, L501.9520, L100.0100, L101.9900 #### [facility] [address] [place], [address] T PROT 6.7 g/dL Normal 5.9-8.4 [facility] Comment on above: Performed By: #### L 501.9985, L500.2500, L501.9520, L100.0100, L101.9900 #### [facility] [address] [place], [address] Urea nitrogen [Mass/Vol] 43 mg/dL High 4-19 [facility] Comment on above: Performed By: #### L 501.9985, L500.2500, L501.9520, L100.0100, L101.9900 #### [facility] [address] [place], [address] Free T3on 11-24-2024 Free T3 [Mass/Vol] 2.9 pg/mL Normal 2.18-3.98 [place] Comment on above: Performed By: #### L 501.9985, L500.2500, L501.9520, L100.0100, L101.9900 #### [facility] [address] [place], [address] Free [id number] By: Kp juarez on 11-24-2024 Free T3 [Mass/Vol] 2.9 pg/mL 2.18-3.98 [place] Free Triiodothyronine (T3) pg/dL 2.9 pg/mL 2.18-3.98 [facility] GFR/1.73 sq M.predicted france g non-blacks MDRD (S/P/Bld) [Vol rate/Area]Ordered By: Kp James on 11-24-2024 Estimated GFR (MDRD) Non-Af Amer 54 Low >60 [facility] Comment on above: mL/min/1.73m2 CKD-EP I Creatinine Equation (2020) Glomerular filtration rate ( GFR) estimation/1.73 sq m using serum, plasma, or whole bOrdered By: Kp James on 11-24-2024 GFR/1.73 sq M.predicted among non-blacks MDRD (S/P/Bld) [Vol rate/Area] 54 mL/min/{1.73_m2} Low >60 [facility] Comment on above: mL/min/1.73m2 CKD-EP I Creatinine Equation (2020) Hemoglobin A1con 11-24-2024 HbA1c (Bld) [Mass fraction] 6.9 % Normal <=5.6 [facility] Comment on above: Performed By: #### L 501.9985, L500.0198, L501.9501, L100.0100, L101.9900 #### [facility] [address] [place], [address] Hemoglobin A1c percentageOrd ered By: Kp James on 11-24-2024 HbA1c (Bld) [Mass fraction] 6.9 % >5.7 [facility] Laboratory - Chemistry and C hemistry - challengeOrdered By: Kp James on 11-24-2024 AST [Catalytic activity/Vol] 18 U/L <38 [facility] Potassium (Unsp spec) [Mass/ Vol]Ordered By: Kp James on 11-24-2024 Potassium [Moles/Vol] 5.1 mmol/L 3.3-5.1 [facility] Potassium measurement (mass/ volume)Ordered By: Kp James on 11-24-2024 Potassium (Unsp spec) [Mass/Vol] 5.1 mmol/L 3.3-5.1 [facility] Serum creatinine measurement (mass/volume)Ordered By: Kp James on 11-24-2024 Creatinine [Mass/Vol] 1.31 mg/dL High 0.70-1.20 [facility] Serum globulin measurementOr dered By: Kp James on 11-24-2024 Globulin (S) [Mass/Vol] 2.6 g/dL 2.2-4.2 [facility] Serum glucose measurement (m ass/volume)Ordered By: Kp James on 11-24-2024 Glucose [Mass/Vol] 125 mg/dL High 70-99 [place] Serum or plasma alanine singletary otransferase (ALT) measurementOrdered By: Kp James on 11-24-2024 ALT [Catalytic activity/Vol] 19 U/L <47 [facility] Serum or plasma albumin andrez urement (mass/volume)Ordered By: Kp James on 11-24-2024 Albumin [Mass/Vol] 4.1 g/dL 3.4-4.8 [place] Serum or plasma albumin/glob ulin mass ratioOrdered By: Kp James on 11-24-2024 Albumin/Globulin [Mass ratio] 1.6 {ratio} 0.9-2.4 [facility] Serum or plasma alkaline shane sphatase measurementOrdered By: Kp James on 11-24-2024 ALP [Catalytic activity/Vol] 87 U/L 40-129 [facility] Serum or plasma calcium andrez urement (mass/volume)Ordered By: Kp James on 11-24-2024 Calcium [Mass/Vol] 9.4 mg/dL 7.6-11.0 [place] Serum or plasma urea nitroge n measurement (mass/volume)Ordered By: Kp James on 11-24-2024 Urea nitrogen [Mass/Vol] 43 mg/dL High 4-19 [facility] Sodium levelOrdered By: Christiano James on 11-24-2024 Sodium [Moles/Vol] 141 mmol/L 133-145 [place] T4 Free Directon 11-24-2024 T4 FREE DIRECT 1.00 ng/dL Normal 0.76-1.46 [facility] Comment on above: Performed By: #### L 501.9985, L500.2500, L501.9520, L100.0100, L101.9900 #### [facility] Laboratory [address] [place], [place], [id number] T4 freeOrdered By: Kp juarez on 11-24-2024 Free T4 [Mass/Vol] 1.00 ng/dL 0.76-1.46 [place] TSH DL <= 0.005 mIU/L QnOrde red By: Kp James on 11-24-2024 Thyroid Stimulating Hormone (TSH) 0.241 uIU/mL Low 0.300-4.200 [facility] TSH Qn 0.241 uIU/mL Low 0.300-4.200 [facility] Thyroid Stim Hormone (TSH)on 11-24-2024 TSH 0.241 uIU/mL Low 0.300-4.200 [facility] Comment on above: Performed By: #### L 501.9985, L500.2500, L501.9520, L100.0100, L101.9900 #### [facility] Laboratory [address] [place], [address] Total proteinOrdered By: Dewayne lubin Erika on 11-24-2024 Protein [Mass/Vol] 6.7 g/dL 5.9-8.4 [place] Hips B/L min 2 views w/ Pelv adele 11-07-2024 Hips B/L min 2 views w/ Pelvis [facility] Imaging Services [address] [place] [address] Hips B/L min 2 views w/ Pelvis MR#: [id number] Acct: [id number] Name: LUC GANNON Rep #: [id number] : 1940 M 84 From: Vinod Recinos MD PCP: Dr. Mary Abernathy MD Status: REG CLI Study: Hips B/L min 2 views w/ Pelvis Date of Exam: 0 11/07/24 Exam# [id number] Ordering Dr: Mary Abernathy MD EXAM: XR Bilateral Hips With Pelvis When Performed, 2 or 3 Views CLINICAL INDICATION: PAIN TECHNIQUE: Three or four views of the bilateral hips with pelvis when performed. COMPARISON: No relevant prior studies available. FINDINGS: BONES/JOINTS: Left hip replacement. Intact hardware. Anatomic position. Mild degenerative change of the right hip joint. No acute fracture. No dislocation. SOFT TISSUES: Unremarkable. RAD/Hips B/L min 2 views w/ Pelvis IMPRESSION: 1. Postoperative changes as above. 2. Degenerative changes as above. Reading [facility] CC: Dr. Mary Abernathy MD Regulatory Law Specialist: Signed Normal [facility] Special Stain Group IIon Special Stain Group II ----- ---- Patient Age/Sex Location Account Attending Physician ---- LUC GANNON 83/M LABSPEC [id number] Dr. Pedro Segura MD ---- Specimen: [id number] Received: 07/11/24 Status: FLORYBri Kevin Num: [id number] Spec Type: Fluid Subm Dr: Dr. Pedro Segura MD HEADER OPERATION: Fine needle aspiration of thyroid nodules PRE-OP DIAGNOSIS: Thyroid nodules TISSUE SUBMITTED: A- Right thyroid nodule fluid, B- Right thyroid nodule slides, C- Isthmic nodule fluid, D- Isthmus nodule slides ---- DIAGNOSIS CYTOLOGY A. Right thyroid nodule fluid, fine needle aspiration (cytospin and cellblock): Consistent with a benign follicular nodule, [place] Category II. B. Right thyroid nodule, fine needle aspiration (smears): Consistent with a benign follicular nodule, [place] Category II. C. Isthmic nodule fluid, fine needle aspiration (cytospin and cellblock): Consistent with a benign follicular nodule, [place] Category II. D. Isthmus nodule, fine needle aspiration (smears): Consistent with a benign follicular nodule, [place] Category II. FA.mr 07/12/2024 COMMENT Material is adequate for evaluation. No malignant cells are identified. Case has been reviewed in consultation with Dr. Noland who concurs with the above diagnosis. IDC:SJ CYTOLOGY STUDY Slides are reviewed. CYTOLOGY GROSS A. Received is 30 ml of red-cloudy fluid labeled with the patient's name and and designated per the requisition as Right thyroid nodule. Submitted for cytology preparation including cell block. B. Received are 4 smears labeled with the patient's name and designated per the requisition as Right thyroid nodule. Submitted for staining. C. Received is 20 ml of red-cloudy fluid labeled with the patient's name and and designated per the requisition as Isthmic nodule. Submitted for cytology preparation including cell block. D. Received are 4 smears labeled with the patient's name and designated per the requisition as Isthmic nodule. Submitted for staining. Mr 07/11/2024 TC:? ---- Patient Age/Sex Location Account Attending Physician ---- LUC GANNON 83/M LABSPEC [id number] Dr. Pedro Segura MD ---- CPT: 64455z4,45779r6 Signed (signature on file) Dr. Bruno Hebert MD 07/12/24 1303 ---- Normal [facility] Comment on above: Performed By: #### L 501.9985, L500.2500, L501.9520, L100.0100, L101.9900 #### [facility] Laboratory [address] [place], [place], [address] Surgery Visit Reporton 07-10 Surgery Visit Report [facility] [address] [place] [address] OFFICE VISIT Date of Service: 07/10/24 MR#: [id number] Acct: [id number] Name: LUC GANNON Rep #: [id number] : 1940 Provider: Dr. Pedro todd MD Age/Sex: 83/M Location: [facility] Status: Signed Intake Vital Signs 11/29/23 07:26 Height 5 ft 11 in Intake Visit Reasons: THYROID BIOPSY Chief Complaint: thyroid biopsy Is patient in pain?: No Allergies Penicillins Allergy (Verified 06/07/24 08:19) Rash Have you fallen in the past year?: No [facility] Medical History Thyroid nodule Palpitations Crohn disease Arthritis Back pain Syncope Abdominal pain Shortness of breath on exertion History of pain when walking History of edema Chest pain History of rheumatic fever Surgical History History of cholecystectomy Hx of colonoscopy Hx of total hip arthroplasty Hx of hernia repair Family History Sister Cancer Heart disease Mother Brain tumor Father Myocardial infarction Son Heart disease Other Diabetes Social History Smoking Status: Never smoker alcohol intake: current alcohol intake frequency: holidays/special occasions only HPI HPI HPI: Patient is a 83-year-old male who presents for evaluation of thyroid nodules. They are referred for surgical consultation from Dr. Abernathy. Patient's initial consultation visit came on 06/07/2024 where he underwent FNA biopsy of a left sided thyroid nodule, right-sided thyroid nodule, and a isthmic thyroid nodule. Unfortunately, patient cytopathology results showed nondiagnostic specimens at the right and isthmic positions. The left thyroid biopsy was diagnostic and given the clear Woodlawn 2 designation. He presents today for repeat biopsy given previous nondiagnostic results. 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 Below is recapitulated from patient's prior visit for ease of review Patient is a 83-year-old male who presents for evaluation of thyroid nodules. They are referred for surgical consultation from Dr. Dr. Abernathy. Mr. Gannon declares that his finding of thyroid nodules came about by incidental discovery after he was worked up for a number of complaints including weakness in his legs, new fatigue, variable weight, and watery eyes and found to have evidence of hyperthyroidism. They do not experience difficulty with swallowing. They do not complain of a new cough. They do appreciate voice changes but share that he has always had to clear his throat and noticed that his hoarseness for years. He also shares that it seems to be associated with some congestion. They do have a history of snoring/sleep apnea. Additionally, their weight has been fluctuating and there is a history of recent fatigue. They do have a history of cold intolerance. Other symptoms include: Some erratic bowel habits with constipation and diarrhea and some excessive sweating during activity. They do have a family history of thyroid disorders and reports they just learned that there sister has been taking thyroid medication for the last 3 years. There is no history of prior radiation exposure. Previous work-up has included thyroid ultrasound. This study was performed on 04/13/2024 and showed a right thyroid lobe measuring 5.6 x 3.8 x 3 point cm. Within this lobe radiology identified for nodules including a nodule measuring 2.4 x 2.3 x 2.0 cm and was rated a TI-RADS 3. The left thyroid lobe measured 10.0 x 3 point x 4.7 cm. Within this lobe radiology identified another 3 nodules but identified 2 of them as spongiform in appearance. The third nodule measured 3.9 x 2.9 x 2.7 cm and was rated a TI-RADS 4 being described as heterogeneous in echogenicity and being predominantly hyperechoic. Lastly radiology identified a 4.3 x 2.3 x 3.4 cm TI-RADS 4 nodule in the isthmus. An FNA has not been performed. Other tests include: TSH: 0.094 (05/15/2024), free T3: 3.2 (05/15/2024), free T4: 0.95 (05/15/2024) ROS General General: Yes weight change and fatigue; No appetite, colon cancer, breast cancer or weakness HEENT HEENT: No difficulty swallowing, eye injury, eye surgery, swollen glands or hoarseness Endo Endocrine: Yes thyroid disease; No diabetes mellitus, thyroid cancer, Hair loss, heat intolerance or cold intolerance Skin Skin: No rash or changing moles Musc Musculoskeletal: Yes back problems, arthritis and rheumatoid arthritis (more content not included)... Normal [facility] Basic Metabolic Profile (BMP )on 06-23-2024 BUN/CRE 21.5 RATIO High 10- [facility] Comment on above: Performed By: #### L 501.9985, L500.2500, L501.9520, L100.0100, L101.9900 #### [facility] Laboratory [address] [place], [address] CA,Total 9.5 mg/dL Normal 8.5-10.1 [facility] Comment on above: Performed By: #### L 501.9985, L500.2500, L501.9520, L100.0100, L101.9900 #### [facility] Laboratory [address] [place], [address] Chloride [Moles/Vol] 108 mmol/L High 98-107 [facility] Comment on above: Performed By: #### L 501.9985, L500.2500, L501.9520, L100.0100, L101.9900 #### [facility] Laboratory [address] [place], [address] CO2 [Moles/Vol] 28.0 mmol/L Normal 21.0-32.0 [facility] Comment on above: Performed By: #### L 501.9985, L500.2500, L501.9520, L100.0100, L101.9900 #### [facility] Laboratory [address] [place], [address] Creatinine [Mass/Vol] 1.07 mg/dL Normal 0.70-1.30 [facility] Comment on above: Result Comment: The validity of the calculated GFR GFRAA in patients over 70 years has not been determined. Clinical correlation is essential. Performed By: #### L 501.9985, L500.2500, L501.9520, L100.0100, L101.9900 #### [facility] Laboratory [address] [place], [address] EST GFR - AA 85 mL/min Normal >60 [facility] Comment on above: Result Comment: Afri can Cameroonian GFR Calc Performed By: #### L 501.9985, L500.2500, L501.9520, L100.0100, L101.9900 #### [facility] Laboratory [address] [place], [address] GAP 6 Normal 5-15 [facility] Comment on above: Performed By: #### L 501.9985, L500.2500, L501.9520, L100.0100, L101.9900 #### [facility] Laboratory [address] [place], [address] GFR/1.73 sq M.predicted among non-blacks MDRD (S/P/Bld) [Vol rate/Area] 70 mL/min/{1.73_m2} Normal >60 [facility] Comment on above: Result Comment: Non- GFR Calc Performed By: #### L 501.9985, L500.2500, L501.9520, L100.0100, L101.9900 #### [facility] Laboratory [address] [place], [address] Glucose [Mass/Vol] 149 mg/dL High 74-106 [place] Comment on above: Result Comment: Fast ing Glucose result greater than or equal to 126 mg/dL suggests DIABETES MELLITUS per A.D.A. criteria. Performed By: #### L 501.9985, L500.2500, L501.9520, L100.0100, L101.9900 #### [facility] Laboratory [address] [place], [address] Potassium [Moles/Vol] 4.8 mmol/L Normal 3.5-5.1 [facility] Comment on above: Performed By: #### L 501.9985, L500.2500, L501.9520, L100.0100, L101.9900 #### [facility] Laboratory [address] [place], [address] Sodium [Moles/Vol] 142 mmol/L Normal 136-145 [place] Comment on above: Performed By: #### L 501.9985, L500.2500, L501.9520, L100.0100, L101.9900 #### [facility] Laboratory [address] [place], [address] Urea nitrogen [Mass/Vol] 23 mg/dL High 7-18 [facility] Comment on above: Performed By: #### L 501.9985, L500.2500, L501.9520, L100.0100, L101.9900 #### [facility] Laboratory [address] [place], [address] Free T3on 06-23-2024 Free T3 [Mass/Vol] 2.6 pg/mL Normal 2.18-3.98 [place] Comment on above: Performed By: #### L 501.9985, L500.2500, L501.9520, L100.0100, L101.9900 #### [facility] Laboratory [address] [place], [address] Hemoglobin A1con 06-23-2024 HbA1c (Bld) [Mass fraction] 6.5 % High 3.8-5.6 [facility] Comment on above: Result Comment: Norm al < 5.7 % Prediabetic 5.7 - 6.4 % Diabetic >or= 6.5 % Please note range changes. Performed By: #### L 501.9985, L500.2500, L501.9520, L100.0100, L101.9900 #### [facility] Laboratory [address] [place], [address] T4 Free Directon 06-23-2024 T4 FREE DIRECT 0.79 ng/dL Normal 0.76-1.46 [facility] Comment on above: Performed By: #### L 501.9985, L500.2500, L501.9520, L100.0100, L101.9900 #### [facility] Laboratory [address] [place], [address] Thyroid Stim Hormone (TSH)on 06-23-2024 TSH 0.404 uIU/mL Normal 0.358-3.740 [facility] Comment on above: Performed By: #### L 501.9985, L500.2500, L501.9520, L100.0100, L101.9900 #### [facility] Laboratory [address] [place], [address] Special Stain Group IIon Special Stain Group II ----- ---- Patient Age/Sex Location Account Attending Physician ---- LUC GANNON 83/M LABSPEC [id number] Dr. Pedro Segura MD ---- Specimen: [id number] Received: 06/07/24 Status: AGUILA Brown Num: [id number] Spec Type: Fluid Subm Dr: Dr. Pedro Segura MD HEADER OPERATION: Fine needle aspiration of thyroid nodules PRE-OP DIAGNOSIS: Thyroid nodules TISSUE SUBMITTED: A- Isthmic nodule fluid, B- Isthmic nodule slides, C- Left mid thyroid fluid, D- Left mid thyroid slides, E- Right posterior mid thyroid nodule fluid, F- Right posterior mid thyroid nodule slides ---- DIAGNOSIS CYTOLOGY A. Isthmic nodule fluid, fine needle aspiration (cytospin and cellblock): Negative for malignant cells. Rare follicular cells and macrophages are noted. See comment. B. Isthmic nodule, fine needle aspiration (smears): Non-diagnostic specimen, [place] Category I. See comment. C. Left mid thyroid fluid, fine needle aspiration (cytospin and cellblock): Negative for malignant cells. See comment. D. Left mid thyroid, fine needle aspiration (smears): Consistent with benign follicular cells colloid nodule with cystic changes, [place] Category II. Adequate for evaluation. E. Right posterior mid thyroid nodule, fine needle aspiration (cytospin and cellblock): Negative for malignant cells. A few clusters of benign follicular cells are noted See comment. F. Right mid thyroid nodule, fine needle aspiration (smears): Non-diagnostic specimen, [place] Category I. 06/08/2024 COMMENT A, B. The specimen is non-diagnostic due to lack of adequate number of follicular cells. C. The specimen consists of macrophages and colloid. E F. The specimen is non-diagnostic due to lack of adequate number of follicular cells. Correlation with clinical, radiologic findings and appropriate follow up are necessary. ---- Patient Age/Sex Location Account Attending Physician ---- LUC GANNON 83/M LABSPEC [id number] Dr. Pedro Segura MD ---- CYTOLOGY STUDY Slides are reviewed. CYTOLOGY GROSS A. Received is 30 ml of dark-red fluid labeled with the patient's name and and designated per the requisition as Isthmic nodule fluid. Submitted for cytology preparation including cell block. B. Received are 4 smears labeled with the patient's name and designated per the requisition as Isthmic nodule. Submitted for staining. C. Received is 30 ml of dark-red cloudy fluid labeled with the patient's name and and designated per the requisition as Left mid thyroid fluid. Submitted for cytology preparation including cell block. D. Received are 4 smears labeled with the patient's name and designated per the requisition as Left mid thyroid nodule. Submitted for staining. E. Received is 30 ml of dark-red cloudy fluid labeled with the patient's name and and designated per the requisition as Right posterior mid thyroid nodule. Submitted for cytology preparation including cell block. F. Received are 4 smears labeled with the patient's name and designated per the requisition as Right posterior mid thyroid nodule. Submitted for staining. 06/07/2024 TC:5 CPT: 22322 x6, 74909 x3 Signed (signature on file) Dr. Tad Noland MD 06/08/24 1218 ---- Normal [facility] Comment on above: Performed By: #### P SSII #### [facility] Laboratory [facility] [address] [place], [place], [id number] Surgery Visit Reporton 06-07 Surgery Visit Report [facility] [address] [place] [address] OFFICE VISIT Date of Service: 06/07/24 MR#: [id number] Acct: [id number] Name: LUC GANNNO Rep #: [id number] : 1940 Provider: Dr. Pedro todd MD Age/Sex: 83/M Location: [facility] Status: Signed Intake Vital Signs 11/29/23 07:26 Height 5 ft 11 in Intake Visit Reasons: THYROID NODULE Chief Complaint: thyroid nodule Is patient in pain?: No Allergies Penicillins Allergy (Verified 06/07/24 08:19) Rash Medications ???Medication ???Instructions ???Recorded ???Confirmed ???Type latanoprost 0.005 % eye drops 1 drp EACH EYE QPM 11/26/21 06/07/24 History multivitamin 1 cap PO DAILY 11/26/21 06/07/24 History atorvastatin 40 mg tablet (Lipitor) 40 mg PO DAILY #60 tabs 11/19/23 06/07/24 Rx lisinopril 20 mg tablet 20 mg PO DAILY #60 tabs 11/19/23 06/07/24 Rx metoprolol succinate 50 mg 50 mg PO DAILY #60 tabs 11/19/23 06/07/24 Rx tablet,extended release 24 hr (Toprol XL) furosemide 20 mg tablet 20 mg PO DAILY #30 tabs 12/23/23 06/07/24 Rx aspirin 81 mg tablet,delayed 81 mg PO QDAY 06/07/24 06/07/24 History release (Adult Aspirin Regimen) Have you fallen in the past year?: No PFSH Medical History (Updated 06/08/24 @ 20:[address] Pedro Segura MD) Thyroid nodule Palpitations Crohn disease Arthritis Back pain Syncope Abdominal pain Shortness of breath on exertion History of pain when walking History of edema Chest pain History of rheumatic fever Surgical History History of cholecystectomy Hx of colonoscopy Hx of total hip arthroplasty Hx of hernia repair Family History Sister Cancer Heart disease Mother Brain tumor Father Myocardial infarction Son Heart disease Other Diabetes Social History Smoking Status: Never smoker alcohol intake: current alcohol intake frequency: holidays/special occasions only HPI HPI HPI: Patient is a 83-year-old male who presents for evaluation of thyroid nodules. They are referred for surgical consultation from Dr. Dr. Abernathy. Mr. Gannon declares that his finding of thyroid nodules came about by incidental discovery after he was worked up for a number of complaints including weakness in his legs, new fatigue, variable weight, and watery eyes and found to have evidence of hyperthyroidism. They do not experience difficulty with swallowing. They do not complain of a new cough. They do appreciate voice changes but share that he has always had to clear his throat and noticed that his hoarseness for years. He also shares that it seems to be associated with some congestion. They do have a history of snoring/sleep apnea. Additionally, their weight has been fluctuating and there is a history of recent fatigue. They do have a history of cold intolerance. Other symptoms include: Some erratic bowel habits with constipation and diarrhea and some excessive sweating during activity. They do have a family history of thyroid disorders and reports they just learned that there sister has been taking thyroid medication for the last 3 years. There is no history of prior radiation exposure. Previous work-up has included thyroid ultrasound. This study was performed on 04/13/2024 and showed a right thyroid lobe measuring 5.6 x 3.8 x 3 point cm. Within this lobe radiology identified for nodules including a nodule measuring 2.4 x 2.3 x 2.0 cm and was rated a TI-RADS 3. The left thyroid lobe measured 10.0 x 3 point x 4.7 cm. Within this lobe radiology identified another 3 nodules but identified 2 of them as spongiform in appearance. The third nodule measured 3.9 x 2.9 x 2.7 cm and was rated a TI-RADS 4 being described as heterogeneous in echogenicity and being predominantly hyperechoic. Lastly radiology identified a 4.3 x 2.3 x 3.4 cm TI-RADS 4 nodule in the isthmus. An FNA has not been performed. Other tests include: TSH: 0.094 (05/15/2024), free T3: 3.2 (05/15/2024), free T4: 0.95 (05/15/2024) ROS General General: Yes weight change and fatigue; No appetite, colon cancer, breast cancer or weakness HEENT HEENT: No difficulty swallowing, eye injury, eye surgery, swollen glands or hoarseness Endo Endocrine: Yes thyroid disease; No diabetes mellitus, thyroid cancer, Hair loss, heat intolerance or cold intolerance Skin Skin: No rash or changing moles Musc Musculoskeletal: Yes back problems, arthritis and rheumatoid arthritis; No gout or joint pain Cardio Cardiovascular: Yes high blood pressure; No murmur, pacemaker, heart disease, atrial fibrillation, heart attack, heart stent, palpitations, shortness of breat (more content not included)... Normal [facility] TRABon 05-17-2024 TSH Receptor Ab <1.10 Normal 0.00-1.75 [facility] Comment on above: Result Comment: Perf ormed At: [facility] [address] [id number] Ryan Perkins MD Ph:[phone] Performed By: #### F T3, FT4, [id number], TSH, BMP, GFR #### [address] [address] .GFRon 05-15-2024 GFR >60 Normal [facility] Comment on above: Result Comment: GFR Population mean for , Non- Americans Ages 20-29 = 116 mL/min/1.73 sq.m. Ages 30-39 = 107 mL/min/1.73 sq.m. Ages 40-49 = 99 mL/min/1.73 sq.m. Ages 50-59 = 93 mL/min/1.73 sq.m. Ages 60-69 = 85 mL/min/1.73 sq.m. Ages 70+ = 75 mL/min/1.73 sq.m. Chronic Kidney Disease: Less than 60 mL/min/1.73 square meters End Stage Renal Disease: Less than 15 mL/min/1.73 square meters Performed By: #### F T3, FT4, 628406, TSH, BMP, GFR #### [place] [address] [place] [address] GFR Non- >60 Normal [facility] Comment on above: Result Comment: GFR Population mean for , Non- Americans Ages 20-29 = 116 mL/min/1.73 sq.m. Ages 30-39 = 107 mL/min/1.73 sq.m. Ages 40-49 = 99 mL/min/1.73 sq.m. Ages 50-59 = 93 mL/min/1.73 sq.m. Ages 60-69 = 85 mL/min/1.73 sq.m. Ages 70+ = 75 mL/min/1.73 sq.m. Chronic Kidney Disease: Less than 60 mL/min/1.73 square meters End Stage Renal Disease: Less than 15 mL/min/1.73 square meters Performed By: #### F T3, FT4, 517510, TSH, BMP, GFR #### [address] [address] BMPon 05-15-2024 BUN/Creatinine Ratio 28.1 ratio High 10.0-22.0 [facility] Comment on above: Performed By: #### F T3, FT4, 041763, TSH, BMP, GFR #### [address] [address] Calcium [Mass/Vol] 9.4 mg/dL Normal 8.7-10.4 [facility] Comment on above: Performed By: #### F T3, FT4, 852537, TSH, BMP, GFR #### [address] [address] Chloride [Moles/Vol] 109 mmol/L Normal 98-110 [facility] Comment on above: Performed By: #### F T3, FT4, 083679, TSH, BMP, GFR #### [address] [address] CO2 [Moles/Vol] 32 mmol/L Normal 22-32 [facility] Comment on above: Performed By: #### F T3, FT4, 361165, TSH, BMP, GFR #### [address] [address] Creatinine [Mass/Vol] 0.89 mg/dL Normal 0.60-1.40 [facility] Comment on above: Result Comment: Test ing performed on PubNub analyzer using enzymatic creatinine methodology. Performed By: #### F T3, FT4, 788988, TSH, BMP, GFR #### [address] [address] Electrolyte Balance 4.0 mEq/L Normal 4.0-15.0 [facility] Comment on above: Performed By: #### F T3, FT4, 137223, TSH, BMP, GFR #### [address] [address] Glucose [Mass/Vol] 111 mg/dL Normal 82-115 [facility] Comment on above: Performed By: #### F T3, FT4, 962530, TSH, BMP, GFR #### [address] [address] Potassium [Moles/Vol] 4.5 mmol/L Normal 3.5-5.0 [facility] Comment on above: Performed By: #### F T3, FT4, 020134, TSH, BMP, GFR #### [address] [address] Sodium [Moles/Vol] 145 mmol/L Normal 136-145 [facility] Comment on above: Performed By: #### F T3, FT4, 948415, TSH, BMP, GFR #### [address] [address] Urea nitrogen [Mass/Vol] 25.0 mg/dL High 8.0-22.0 [facility] Comment on above: Performed By: #### F T3, FT4, 063233, TSH, BMP, GFR #### [address] [address] FT3on 05-15-2024 Free T3 [Mass/Vol] 3.20 pg/mL Normal 2.30-4.20 [facility] Comment on above: Performed By: #### F T3, FT4, 875525, TSH, BMP, GFR #### [address] [address] FT4on 05-15-2024 Free T4 [Mass/Vol] 0.95 ng/dL Normal 0.89-1.76 [facility] Comment on above: Result Comment: No te - New Reference Range in effect 20 Performed By: #### F T3, FT4, 215408, TSH, BMP, GFR #### [facility] [address] [place] [address] TSHon 05-15-2024 TSH 0.094 mIU/mL Low 0.550-4.780 [facility] Comment on above: Order Comment: DUE N OW Result Comment: No te - New Reference Range in effect 20 Performed By: #### F T3, FT4, 698488, TSH, BMP, GFR #### [facility] [address] [place] [address] [place] THYROID IMAGING W/UPTAKE MULTIPLEon 05-04-2024 NM THYROID IMAGING W/UPTAKE MULTIPLE ORIGINAL EXAMINATION: THYROID IMAGE/UPTAKE05/04/2024 9:30 am TECHNIQUE: 0.262 mCi of I-123 was administered orally. COMPARISON: None HISTORY: Reason for Exam: Hyperthyroidism, thyroid nodule FINDINGS: 4 hours uptake is 3 % (normal 6 hours uptake is between 4-15%). 25 hours uptake is 11.6 % (normal 24 hours uptake is between 8-35%). Images obtained demonstrate heterogeneously decreased uptake. IMPRESSION: Decreased iodine uptake at 4 hours and at lower limit at 25 hours. Consider possibility of thyroiditis. Interpreted by: Coy Wisodm MD Preliminary Report By: Coy Wisdom MD Electronically signed By Coy Wisdom MD Dictated Date: 05/04/2024 9:45:31 AM Prelim Date: 05/04/2024 9:48:59 AM Sign Date: 05/04/2024 9:48:59 AM Ordering Provider: KP JAMES [facility] Thyroidon 04-13-2024 Thyroid [facility] Imaging Services [address] [place] [address] Thyroid MR#: [id number] Acct: [id number] Name: LUC GANNON Rep #: [id number] : 1940 M [id number] From: Parminder Hwang MD PCP: Dr. Mary Abernathy MD Status: REG CLI Study: Thyroid Date of Exam: 04/13/24 Exam# [id number] Ordering Dr: KP JAMES [id number] STUDY: THYROID ULTRASOUND REASON FOR EXAM: Male, 83 years old. THYROMEGALY TECHNIQUE: Ultrasound evaluation of the thyroid was performed with real-time and static samson-scale imaging. COMPARISON: None. FINDINGS: RIGHT LOBE: The right lobe of the thyroid gland measures 5.6 x 3.8 x 3.8 cm. There is a heterogeneous echotexture. There are 4 complex nodules in the right thyroid lobe. Nodule 1 in the anterior end lateral mid thyroid lobe is spongiform. This measures 1.46 x 1.03 x 1.19 cm. Nodule 2 in the posterior inferior thyroid pole is mixed isoechoic and hyperechoic. This measures 2.39 x 2.30 x 2.01 cm. Nodule 3 in the right mid thyroid lobe is also spongiform. This measures 1.31 x 0.81 x 1.18 cm. Nodule 4 in the posterior mid thyroid lobe is hypoechoic. This measures 1.22 x 0.77 x 1.12 cm. LEFT LOBE: The left lobe of the thyroid gland measures 10.0 x 3.1 x 4.7 cm. There is a heterogeneous echotexture. There are 3 solid nodules in the left thyroid lobe. Nodule 1 in the mid thyroid lobe is heterogeneous in echogenicity and predominantly hyperechoic. This measures 3.85 x 2.88 x 2.71 cm. Nodule 2 in the mid thyroid lobe is spongiform. This measures 1.72 x 0.92 x 1.8 cm. Nodule 3 in the mid thyroid lobe is also spongiform. This measures 0.82 x 0.60 x 0.82 cm. ISTHMUS: The isthmus measures 0.8 cm. Heterogeneous complex solid ovoid nodule in the thyroid isthmus measuring 4.27 x 2.32 x 3.44 cm.. US/Thyroid IMPRESSION: 1. 4 solid nodules in the right thyroid lobe, 3 solid nodules in the left thyroid lobe and one solid nodule in the thyroid isthmus. 2. Nodule 1 in the right anterior and lateral mid thyroid lobe is spongiform. This measures 1.46 x 1.03 x 1.19 cm. TI-RADS points: 0. TI-RADS category: TR1. This nodule is benign and no FNA or follow-up is necessary. 3. Nodule 2 in the right posterior inferior thyroid lobe is mixed isoechoic and hyperechoic. This measures 2.39 x 2.30 x 3.01 cm. TI-RADS points: 3. TI-RADS category: TR3. This nodule is mildly suspicious. Recommend FNA evaluation. 4. Nodule 3 in the right mid thyroid lobe is spongiform. This measures 1.31 x 0.81 x 1.18 cm. TI-RADS points: 0. TI-RADS category: TR1. This nodule is benign and no FNA or follow-up is necessary. 5. Nodule 4 in the right posterior mid thyroid lobe is hypoechoic. This measures 1.22 x 0.77 x 1.12 cm. TI-RADS points: 4. TI-RADS category: TR4. This nodule is moderately suspicious. Recommend follow-up thyroid ultrasounds at 1, 2, 3 and 5 years. 6. Nodule 1 in the left mid thyroid lobe is heterogeneous in echogenicity but predominantly hyperechoic. This measures 3.85 x 2.88 x 2.71 cm. TI-RADS points: 6. TI-RADS category: TR4. This nodule is moderately suspicious. Recommend FNA evaluation. 7. Nodule 2 in the left mid thyroid lobe is spongiform. This measures 1.72 x 0.92 x 1.8 cm. TI-RADS points: 0. TI-RADS category: TR1. This nodule is benign and no FNA or follow-up is necessary. 8. Nodule 3 in the left mid thyroid lobe is spongiform. This measures 0.82 x 0.60 x 0.8 cm. TI-RADS points: 0. TI-RADS category: TR1. This nodule is benign and no FNA or follow-up is necessary. 9. Complex heterogeneous solid nodule in the thyroid isthmus measures 4.27 x 2.32 x 3.44 cm. TI-RADS points: 4. TI-RADS category: TR4. This nodule is moderately suspicious. Recommend FNA evaluation. Electronically Signed: Parminder Hwang MD at 16:12 EDT Reading Location ID and State: [facility] / [place] , Service support , CC: KP JAMES; Dr. Mary Abernathy MD Regulatory Law Specialist: Signed Normal [facility] Jorje 04-06-2024 TSI <0.10 Normal 0.00-0.55 [facility] ([place]) Comment on above: Result Comment: Perf ormed At: [facility] [address] [id number] Ryan Perkins MD Ph:[phone] Performed By: #### F T3, THYAB, B12, FT4, GFR, CRP, CMP, CBC, TSH, ESR, ADIFF, ANEU, 116586, VIDH #### [address] [address] .ATG SOon 04-05-2024 Thyroglob Ab <1.0 Normal 0.0-0.9 [facility] ([place]) Comment on above: Result Comment: Thyr oglobulin Antibody measured by Jack Nohemy Methodology It should be noted that the presence of thyroglobulin antibodies may not be pathogenic nor diagnostic, especially at very low levels. The assay dial printer has found that four percent of individuals without evidence of thyroid disease or autoimmunity will have positive TgAb levels up to 4 IU/mL. Performed At: [facility] [place] [address] [place], [place] [id number] Artem Bustillos PhD Ph:[phone] Performed By: #### 0 [id number] #### [address] [address] .Auto Diffon 04-03-2024 Basophil, Absolute 0.0 10 3/mcL Normal 0.0-0.3 [facility] ([place]) Comment on above: Performed By: #### F T3, THYAB, B12, FT4, GFR, CRP, CMP, CBC, TSH, ESR, ADIFF, ANEU, 059877, VIDH #### [address] [address] Basophils/100 WBC (Bld) 0.6 % Normal 0.0-2.5 [facility] ([place]) Comment on above: Performed By: #### F T3, THYAB, B12, FT4, GFR, CRP, CMP, CBC, TSH, ESR, ADIFF, ANEU, 829366, VIDH #### [address] [address] Eosinophil, Absolute 0.2 10 3/mcL Normal 0.0-0.7 [facility] ([place]) Comment on above: Performed By: #### F T3, THYAB, B12, FT4, GFR, CRP, CMP, CBC, TSH, ESR, ADIFF, ANEU, 606542, VIDH #### [address] [address] Eosinophils/100 WBC (Bld) 2.4 % Normal 0.0-6.0 [facility] ([place]) Comment on above: Performed By: #### F T3, THYAB, B12, FT4, GFR, CRP, CMP, CBC, TSH, ESR, ADIFF, ANEU, 456653, VIDH #### [address] [address] Lymphocyte, Absolute 1.1 10 3/mcL Normal 0.9-4.3 [facility] ([place]) Comment on above: Performed By: #### F T3, THYAB, B12, FT4, GFR, CRP, CMP, CBC, TSH, ESR, ADIFF, ANEU, 668491, VIDH #### [address] [address] Lymphocytes/100 WBC (Bld) 16.9 % Low 20.0-40.0 [facility] ([place]) Comment on above: Performed By: #### F T3, THYAB, B12, FT4, GFR, CRP, CMP, CBC, TSH, ESR, ADIFF, ANEU, 254026, VIDH #### [address] [address] Monocyte, Absolute 0.7 10 3/mcL Normal 0.1-1.4 [facility] ([place]) Comment on above: Performed By: #### F T3, THYAB, B12, FT4, GFR, CRP, CMP, CBC, TSH, ESR, ADIFF, ANEU, 128695, VIDH #### [address] [address] Monocytes/100 WBC (Bld) 11.5 % Normal 2.0-13.0 [facility] ([place]) Comment on above: Performed By: #### F T3, THYAB, B12, FT4, GFR, CRP, CMP, CBC, TSH, ESR, ADIFF, ANEU, 754072, VIDH #### [address] [address] Neutrophils/100 WBC (Bld) 68.6 % Normal 50.0-75.0 [facility] ([place]) Comment on above: Performed By: #### F T3, THYAB, B12, FT4, GFR, CRP, CMP, CBC, TSH, ESR, ADIFF, ANEU, 768309, VIDH #### [address] [address] .GFRon 04-03-2024 GFR >60 Normal [facility] ([place]) Comment on above: Result Comment: GFR Population mean for , Non- Americans Ages 20-29 = 116 mL/min/1.73 sq.m. Ages 30-39 = 107 mL/min/1.73 sq.m. Ages 40-49 = 99 mL/min/1.73 sq.m. Ages 50-59 = 93 mL/min/1.73 sq.m. Ages 60-69 = 85 mL/min/1.73 sq.m. Ages 70+ = 75 mL/min/1.73 sq.m. Chronic Kidney Disease: Less than 60 mL/min/1.73 square meters End Stage Renal Disease: Less than 15 mL/min/1.73 square meters Performed By: #### F T3, THYAB, B12, FT4, GFR, CRP, CMP, CBC, TSH, ESR, ADIFF, ANEU, 655765, VIDH #### [address] [address] GFR Non- >60 Normal [facility] ([place]) Comment on above: Result Comment: GFR Population mean for , Non- Americans Ages 20-29 = 116 mL/min/1.73 sq.m. Ages 30-39 = 107 mL/min/1.73 sq.m. Ages 40-49 = 99 mL/min/1.73 sq.m. Ages 50-59 = 93 mL/min/1.73 sq.m. Ages 60-69 = 85 mL/min/1.73 sq.m. Ages 70+ = 75 mL/min/1.73 sq.m. Chronic Kidney Disease: Less than 60 mL/min/1.73 square meters End Stage Renal Disease: Less than 15 mL/min/1.73 square meters Performed By: #### F T3, THYAB, B12, FT4, GFR, CRP, CMP, CBC, TSH, ESR, ADIFF, ANEU, 442507, VIDH #### [place] [address] .NEUABSon 04-03-2024 Neutrophil, Absolute 4.4 10 3/mcL Normal 2.3-8.1 [facility] ([place]) Comment on above: Performed By: #### F T3, THYAB, B12, FT4, GFR, CRP, CMP, CBC, TSH, ESR, ADIFF, ANEU, 679120, VIDH #### [place] [id number] B12on 04-03-2024 Cobalamin (Vitamin B12) [Mass/Vol] 491 pg/mL Normal 211-911 [facility] ([place]) Comment on above: Performed By: #### F T3, THYAB, B12, FT4, GFR, CRP, CMP, CBC, TSH, ESR, ADIFF, ANEU, 492592, VIDH #### [place] [id number] CBCon 04-03-2024 Erythrocyte distribution width (RBC) [Ratio] 14.6 % Normal 11.5-15.5 [facility] ([place]) Comment on above: Performed By: #### F T3, THYAB, B12, FT4, GFR, CRP, CMP, CBC, TSH, ESR, ADIFF, ANEU, 385998, VIDH #### [place] [address] Hematocrit (Bld) [Volume fraction] 41.2 % Normal 40.0-52.0 [facility] ([place]) Comment on above: Performed By: #### F T3, THYAB, B12, FT4, GFR, CRP, CMP, CBC, TSH, ESR, ADIFF, ANEU, 497478, VIDH #### [place] [id number] Hgb 13.5 G/dL Normal 13.0-17.5 [facility] ([place]) Comment on above: Performed By: #### F T3, THYAB, B12, FT4, GFR, CRP, CMP, CBC, TSH, ESR, ADIFF, ANEU, 928358, VIDH #### [place] [address] MCH (RBC) [Entitic mass] 29.0 pg Normal 27.0-33.0 [facility] ([place]) Comment on above: Performed By: #### F T3, THYAB, B12, FT4, GFR, CRP, CMP, CBC, TSH, ESR, ADIFF, ANEU, 684330, VIDH #### [place] [address] MCHC 32.7 G/dL Normal 32.0-36.0 [facility] ([place]) Comment on above: Performed By: #### F T3, THYAB, B12, FT4, GFR, CRP, CMP, CBC, TSH, ESR, ADIFF, ANEU, 819796, VIDH #### [place] [address] MCV (RBC) [Entitic vol] 88.8 fL Normal 81.0-100.0 [facility] ([place]) Comment on above: Performed By: #### F T3, THYAB, B12, FT4, GFR, CRP, CMP, CBC, TSH, ESR, ADIFF, ANEU, 928099, VIDH #### [place] [address] Platelet 240 10 3/mcL Normal 150-450 [facility] ([place]) Comment on above: Performed By: #### F T3, THYAB, B12, FT4, GFR, CRP, CMP, CBC, TSH, ESR, ADIFF, ANEU, 236340, VIDH #### [address] [address] Platelet mean volume (Bld) [Entitic vol] 8.3 fL Normal 6.4-10.5 [facility] ([place]) Comment on above: Performed By: #### F T3, THYAB, B12, FT4, GFR, CRP, CMP, CBC, TSH, ESR, ADIFF, ANEU, 832840, VIDH #### [place] [id number] RBC 4.64 10 6/mcL Normal 4.50-6.00 [facility] ([place]) Comment on above: Performed By: #### F T3, THYAB, B12, FT4, GFR, CRP, CMP, CBC, TSH, ESR, ADIFF, ANEU, 664716, VIDH #### [place] [address] WBC 6.4 10 3/mcL Normal 4.5-10.8 [facility] ([place]) Comment on above: Performed By: #### F T3, THYAB, B12, FT4, GFR, CRP, CMP, CBC, TSH, ESR, ADIFF, ANEU, 122116, VIDH #### [address] [address] CMPon 04-03-2024 Albumin Level 3.7 G/dL Normal 3.2-4.8 [facility] ([place]) Comment on above: Performed By: #### F T3, THYAB, B12, FT4, GFR, CRP, CMP, CBC, TSH, ESR, ADIFF, ANEU, 137180, VIDH #### [place] [address] Albumin/Globulin [Mass ratio] 1.4 {ratio} Normal 0.9-1.6 [facility] ([place]) Comment on above: Performed By: #### F T3, THYAB, B12, FT4, GFR, CRP, CMP, CBC, TSH, ESR, ADIFF, ANEU, 447759, VIDH #### [place] [address] ALP [Catalytic activity/Vol] 105 U/L Normal 38-126 [facility] ([place]) Comment on above: Performed By: #### F T3, THYAB, B12, FT4, GFR, CRP, CMP, CBC, TSH, ESR, ADIFF, ANEU, 723888, VIDH #### [place] [address] ALT [Catalytic activity/Vol] 23 U/L Normal 12-55 [facility] ([place]) Comment on above: Performed By: #### F T3, THYAB, B12, FT4, GFR, CRP, CMP, CBC, TSH, ESR, ADIFF, ANEU, 661802, VIDH #### [place] [address] AST [Catalytic activity/Vol] 17 U/L Normal 8-34 [facility] ([place]) Comment on above: Performed By: #### F T3, THYAB, B12, FT4, GFR, CRP, CMP, CBC, TSH, ESR, ADIFF, ANEU, 678269, VIDH #### [place] [address] Bili Total 0.60 mg/dL Normal 0.20-1.20 [facility] ([place]) Comment on above: Result Comment: Use of this assay is not recommended for patients undergoing treatment with eltrombopag due to the potential for falsely elevated results. Performed By: #### F T3, THYAB, B12, FT4, GFR, CRP, CMP, CBC, TSH, ESR, ADIFF, ANEU, 213438, VIDH #### [place] [address] BUN/Creatinine Ratio 32.7 ratio High 10.0-22.0 [facility] ([place]) Comment on above: Performed By: #### F T3, THYAB, B12, FT4, GFR, CRP, CMP, CBC, TSH, ESR, ADIFF, ANEU, 673785, VIDH #### [place] [address] Calcium [Mass/Vol] 9.8 mg/dL Normal 8.7-10.4 [facility] ([place]) Comment on above: Performed By: #### F T3, THYAB, B12, FT4, GFR, CRP, CMP, CBC, TSH, ESR, ADIFF, ANEU, 852722, VIDH #### [address] [address] Chloride [Moles/Vol] 109 mmol/L Normal 98-110 [facility] ([place]) Comment on above: Performed By: #### F T3, THYAB, B12, FT4, GFR, CRP, CMP, CBC, TSH, ESR, ADIFF, ANEU, 387603, VIDH #### [address] [address] CO2 [Moles/Vol] 31 mmol/L Normal 22-32 [facility] ([place]) Comment on above: Performed By: #### F T3, THYAB, B12, FT4, GFR, CRP, CMP, CBC, TSH, ESR, ADIFF, ANEU, 198943, VIDH #### [address] [address] Creatinine [Mass/Vol] 1.07 mg/dL Normal 0.60-1.40 [facility] ([place]) Comment on above: Performed By: #### F T3, THYAB, B12, FT4, GFR, CRP, CMP, CBC, TSH, ESR, ADIFF, ANEU, 683777, VIDH #### [address] [address] Electrolyte Balance 3.0 mEq/L Low 4.0-15.0 [facility] ([place]) Comment on above: Performed By: #### F T3, THYAB, B12, FT4, GFR, CRP, CMP, CBC, TSH, ESR, ADIFF, ANEU, 206297, VIDH #### [address] [address] Globulin 2.6 G/dL Normal 1.5-3.8 [facility] ([place]) Comment on above: Performed By: #### F T3, THYAB, B12, FT4, GFR, CRP, CMP, CBC, TSH, ESR, ADIFF, ANEU, 222234, VIDH #### [address] [address] Glucose [Mass/Vol] 81 mg/dL Low 82-115 [facility] ([place]) Comment on above: Performed By: #### F T3, THYAB, B12, FT4, GFR, CRP, CMP, CBC, TSH, ESR, ADIFF, ANEU, 068647, VIDH #### [address] [address] Potassium [Moles/Vol] 4.6 mmol/L Normal 3.5-5.0 [facility] ([place]) Comment on above: Performed By: #### F T3, THYAB, B12, FT4, GFR, CRP, CMP, CBC, TSH, ESR, ADIFF, ANEU, 245376, VIDH #### [address] [address] Sodium [Moles/Vol] 143 mmol/L Normal 136-145 [facility] ([place]) Comment on above: Performed By: #### F T3, THYAB, B12, FT4, GFR, CRP, CMP, CBC, TSH, ESR, ADIFF, ANEU, 224925, VIDH #### [address] [address] Total Protein 6.3 G/dL Normal 5.7-8.2 [facility] ([place]) Comment on above: Result Comment: No te - New Reference Range in effect 20 Performed By: #### F T3, THYAB, B12, FT4, GFR, CRP, CMP, CBC, TSH, ESR, ADIFF, ANEU, 281391, VIDH #### [address] [address] Urea nitrogen [Mass/Vol] 35.0 mg/dL High 8.0-22.0 [facility] ([place]) Comment on above: Performed By: #### F T3, THYAB, B12, FT4, GFR, CRP, CMP, CBC, TSH, ESR, ADIFF, ANEU, 897305, VIDH #### [address] [address] CRPon 04-03-2024 CRP [Mass/Vol] mg/L Normal 0.0-1.0 [facility] ([place]) Comment on above: Result Comment: No te - New Reference Range in effect 20 Performed By: #### F T3, THYAB, B12, FT4, GFR, CRP, CMP, CBC, TSH, ESR, ADIFF, ANEU, 400609, VIDH #### [address] [address] ESRon 04-03-2024 Erythrocyte Sed Rate 16 mm/hr Normal 0-20 [facility] ([place]) Comment on above: Performed By: #### F T3, THYAB, B12, FT4, GFR, CRP, CMP, CBC, TSH, ESR, ADIFF, ANEU, 627012, VIDH #### [place] [id number] FT3on 04-03-2024 Free T3 [Mass/Vol] 3.26 pg/mL Normal 2.30-4.20 [facility] ([place]) Comment on above: Performed By: #### F T3, THYAB, B12, FT4, GFR, CRP, CMP, CBC, TSH, ESR, ADIFF, ANEU, 060020, VIDH #### [address] [address] FT4on 04-03-2024 Free T4 [Mass/Vol] 0.97 ng/dL Normal 0.89-1.76 [facility] ([place]) Comment on above: Result Comment: No te - New Reference Range in effect 20 Performed By: #### F T3, THYAB, B12, FT4, GFR, CRP, CMP, CBC, TSH, ESR, ADIFF, ANEU, 583566, VIDH #### [place] [id number] THYABon 04-03-2024 Thyroglobulin Ab See comment Normal 15-60 [facility] ([place]) Comment on above: Result Comment: Due to a lack of ATG reagent, testing will be sent out to [facility]. Note - New Reference Range in effect 20 Performed By: #### F T3, THYAB, B12, FT4, GFR, CRP, CMP, CBC, TSH, ESR, ADIFF, ANEU, 560776, VIDH #### [place] [id number] anti-Thyroid Peroxidase 162 units/ml High 0-60 [facility] ([place]) Comment on above: Result Comment: No te - New Reference Range in effect 20 Performed By: #### F T3, THYAB, B12, FT4, GFR, CRP, CMP, CBC, TSH, ESR, ADIFF, ANEU, 097851, VIDH #### [place] [id number] TSHon 04-03-2024 TSH 0.040 mIU/mL Low 0.550-4.780 [facility] ([place]) Comment on above: Order Comment: DUE N OW Result Comment: No te - New Reference Range in effect 20 Performed By: #### F T3, THYAB, B12, FT4, GFR, CRP, CMP, CBC, TSH, ESR, ADIFF, ANEU, 388301, VIDH #### [place] [id number] VIDHon 04-03-2024 Vit. D 25-Hydroxy 33.0 ng/mL Normal [facility] ([place]) Comment on above: Result Comment: Inte rpretive Values Based on Total 25(OH)D: Severe Deficiency <20 ng/mL Mild to Moderate Deficiency 20-30 ng/mL Optimum Levels 30-100 ng/mL Toxicity Possible >100 ng/mL Performed By: #### F T3, THYAB, B12, FT4, GFR, CRP, CMP, CBC, TSH, ESR, ADIFF, ANEU, 874505, VIDH #### [address] [address] Basic Metabolic Profile (BMP )on 02-08-2024 BUN/CRE 28.9 RATIO High 10-20 [facility] Comment on above: Performed By: #### L 501.9985, L500.2500, L501.9520, L100.0100, L101.9900 #### [facility] [address] [place], [address] CA,Total 9.2 mg/dL Normal 8.5-10.1 [facility] Comment on above: Performed By: #### L 501.9985, L500.2500, L501.9520, L100.0100, L101.9900 #### [facility] [address] [place], [address] Chloride [Moles/Vol] 107 mmol/L Normal 98-107 [facility] Comment on above: Performed By: #### L 501.9985, L500.2500, L501.9520, L100.0100, L101.9900 #### [facility] [address] [place], [address] CO2 [Moles/Vol] 28.0 mmol/L Normal 21.0-32.0 [facility] Comment on above: Performed By: #### L 501.9985, L500.2500, L501.9520, L100.0100, L101.9900 #### [facility] [address] [place], [address] Creatinine [Mass/Vol] 0.90 mg/dL Normal 0.70-1.30 [facility] Comment on above: Result Comment: The validity of the calculated GFR GFRAA in patients over 70 years has not been determined. Clinical correlation is essential. Performed By: #### L 501.9985, L500.2500, L501.9520, L100.0100, L101.9900 #### [facility] [address] [place], [address] EST GFR - AA 104 mL/min Normal >60 [facility] Comment on above: Result Comment: Afri can Cameroonian GFR Calc Performed By: #### L 501.9985, L500.2500, L501.9520, L100.0100, L101.9900 #### [facility] [address] [place], [address] GAP 7 Normal 5-15 [facility] Comment on above: Performed By: #### L 501.9985, L500.2500, L501.9520, L100.0100, L101.9900 #### [facility] [address] [place], [address] GFR/1.73 sq M.predicted among non-blacks MDRD (S/P/Bld) [Vol rate/Area] 86 mL/min/{1.73_m2} Normal >60 [facility] Comment on above: Result Comment: Non- GFR Calc Performed By: #### L 501.9985, L500.2500, L501.9520, L100.0100, L101.9900 #### [facility] [address] [place], [address] Glucose [Mass/Vol] 138 mg/dL High 74-106 [place] Comment on above: Result Comment: Fast ing Glucose result greater than or equal to 126 mg/dL suggests DIABETES MELLITUS per A.D.A. criteria. Performed By: #### L 501.9985, L500.2500, L501.9520, L100.0100, L101.9900 #### [facility] [address] [place], [address] Potassium [Moles/Vol] 4.1 mmol/L Normal 3.5-5.1 [facility] Comment on above: Performed By: #### L 501.9985, L500.2500, L501.9520, L100.0100, L101.9900 #### [facility] [address] [place], [address] Sodium [Moles/Vol] 142 mmol/L Normal 136-145 [place] Comment on above: Performed By: #### L 501.9985, L500.2500, L501.9520, L100.0100, L101.9900 #### [facility] [address] [place], [address] Urea nitrogen [Mass/Vol] 26 mg/dL High 7-18 [facility] Comment on above: Performed By: #### L 501.9985, L500.2500, L501.9520, L100.0100, L101.9900 #### [facility] [address] [place], [address] CBC W/Diff, Automatedon - 8-2023 Absolute Lymph 0.97 X10 3/uL Normal 0.83-4.51 [facility] Comment on above: Performed By: #### L 501.9985, L500.2500, L501.9520, L100.0100, L101.9900 #### [facility] [address] [place], [address] Absolute Neut 4.4 X10 3/uL Normal 2.0-7.7 [facility] Comment on above: Performed By: #### L 501.9985, L500.2500, L501.9520, L100.0100, L101.9900 #### [facility] [address] [place], [address] Basophils/100 WBC (Bld) 0.6 % Normal 0-1 [facility] Comment on above: Performed By: #### L 501.9985, L500.2500, L501.9520, L100.0100, L101.9900 #### [facility] [address] [place], [address] Eosinophils/100 WBC (Bld) 3.4 % Normal 0-5 [facility] Comment on above: Performed By: #### L 501.9985, L500.2500, L501.9520, L100.0100, L101.9900 #### [facility] [address] [place], [address] Erythrocyte distribution width (RBC) [Ratio] 13.4 % Normal 11.6-14.6 [facility] Comment on above: Performed By: #### L 501.9985, L500.2500, L501.9520, L100.0100, L101.9900 #### [facility] [address] [place], [address] Hematocrit (Bld) [Volume fraction] 38.7 % Low 40-54 [facility] Comment on above: Performed By: #### L 501.9985, L500.2500, L501.9520, L100.0100, L101.9900 #### [facility] [address] [place], [address] Hemoglobin (Bld) [Mass/Vol] 12.2 g/dL Low 13.0-16.5 [facility] Comment on above: Performed By: #### L 501.9985, L500.2500, L501.9520, L100.0100, L101.9900 #### [facility] [address] [place], [address] IG% 0.300 Normal 0.0-0.9 [facility] Comment on above: Result Comment: IG% - Immature Granulocytes (promyelocytes, myelocytes and metamyelocytes) > 1% indicates that a LEFT SHIFT is Present. Performed By: #### L 501.9985, L500.2500, L501.9520, L100.0100, L101.9900 #### [facility] [address] [place], [address] Lymphocytes/100 WBC (Bld) 15.2 % Low 19-41 [facility] Comment on above: Performed By: #### L 501.9985, L500.2500, L501.9520, L100.0100, L101.9900 #### [facility] [address] [place], [address] MCH (RBC) [Entitic mass] 28.4 pg Normal 27.0-32.0 [facility] Comment on above: Performed By: #### L 501.9985, L500.2500, L501.9520, L100.0100, L101.9900 #### [facility] [address] [place], [address] MCHC (RBC) [Mass/Vol] 31.5 g/dL Low 32-36 [facility] Comment on above: Performed By: #### L 501.9985, L500.2500, L501.9520, L100.0100, L101.9900 #### [facility] [address] [place], [address] MCV (RBC) [Entitic vol] 90.0 fL Normal 80-94 [facility] Comment on above: Performed By: #### L 501.9985, L500.2500, L501.9520, L100.0100, L101.9900 #### [facility] [address] [place], [address] Monocytes/100 WBC (Bld) 11.1 % High 0-10 [facility] Comment on above: Performed By: #### L 501.9985, L500.2500, L501.9520, L100.0100, L101.9900 #### [facility] [address] [place], [address] Neutrophils/100 WBC (Bld) 69.4 % Normal 47-70 [facility] Comment on above: Performed By: #### L 501.9985, L500.2500, L501.9520, L100.0100, L101.9900 #### [facility] [address] [place], [address] Nucleated RBC (Bld) [#/Vol] 0 10*3/uL Normal 0-5 [facility] Comment on above: Performed By: #### L 501.9985, L500.2500, L501.9520, L100.0100, L101.9900 #### [facility] [address] [place], [address] Platelet mean volume (Bld) [Entitic vol] 10.2 fL Normal 6.2-12.0 [facility] Comment on above: Performed By: #### L 501.9985, L500.2500, L501.9520, L100.0100, L101.9900 #### [facility] [address] [place], [address] Platelets (Bld) [#/Vol] 215 10*3/uL Normal 150-450 [facility] Comment on above: Performed By: #### L 501.9985, L500.2500, L501.9520, L100.0100, L101.9900 #### [facility] [address] [place], [address] RBC (Bld) [#/Vol] 4.30 10*6/uL Low 4.6-6.2 [facility] Comment on above: Performed By: #### L 501.9985, L500.2500, L501.9520, L100.0100, L101.9900 #### [facility] [address] [place], [address] RDW SD 43.7 fl Normal 35.1-43.9 [facility] Comment on above: Performed By: #### L 501.9985, L500.2500, L501.9520, L100.0100, L101.9900 #### [facility] [address] [place], [address] WBC (Bld) [#/Vol] 6.4 10*3/uL Normal 4.4-11.0 [place] Comment on above: Performed By: #### L 501.9985, L500.2500, L501.9520, L100.0100, L101.9900 #### [facility] [address] [place], [address] Erythrocyte Sed Rateon 02-07 SED RATE 18 mm/hr Normal 0-20 [facility] Comment on above: Performed By: #### L 501.9985, L500.2500, L501.9520, L100.0100, L101.9900 #### [facility] [address] [place], [address] Hemoglobin A1con 02-08-2024 HbA1c (Bld) [Mass fraction] 6.5 % High 3.8-5.6 [facility] Comment on above: Result Comment: Norm al < 5.7 % Prediabetic 5.7 - 6.4 % Diabetic >or= 6.5 % Please note range changes. Performed By: #### L 501.9985, L500.2500, L501.9520, L100.0100, L101.9900 #### [facility] [address] [place], [address] Thyroid Stim Hormone (TSH)on 02-08-2024 TSH 0.01 uIU/mL Low 0.358-3.74 [facility] Comment on above: Performed By: #### L 501.9985, L500.2500, L501.9520, L100.0100, L101.9900 #### [facility] [address] [place], [address] Absolute lymphocyte countOrd ered By: Obinna Giovanny on 11-19-2023 Lymphocytes Auto (Unsp spec) [#/Vol] 1.61 10*3/uL 0.83-4.51 [facility] Automated lymphocyte count a s percentage of total leukocytesOrdered By: Obinna Giovanny on 11-19-2023 Lymphocytes/100 WBC Auto (Unsp spec) 13.9 % 19-41 [facility] Basophil percentageOrdered B y: Obinna Giovnany on 11-19-2023 Basophils/100 WBC (Bld) 0.4 % 0-1 [facility] Chloride [Moles/Vol] 107 mmol/L 98-107 [facility] Eosinophils/100 WBC (Bld) 1.6 % 0-5 [facility] Glucose [Mass/Vol] 105 mg/dL 74-106 [place] Comment on above: Fasting Glucose resu lt from 100 to 125 mg/dL suggests IMPAIRED HOMEOSTASIS per A.D.A. criteria. Hemoglobin (Bld) [Mass/Vol] 14.1 g/dL 13.0-16.5 [facility] Monocytes/100 WBC (Bld) 7.8 % 0-10 [facility] Neutrophils (Bld) [#/Vol] 8.7 10*3/uL 2.0-7.7 [facility] Neutrophils/100 WBC (Bld) 74.9 % 47-70 [facility] Potassium [Moles/Vol] 4.1 mmol/L 3.5-5.1 [facility] Comment on above: Slight Hemolysis, Re sult may be falsely increased. Sodium [Moles/Vol] 143 mmol/L 136-145 [place] WBC (Bld) [#/Vol] 11.6 10*3/uL 4.4-11.0 [facility] Determination of erythrocyte mean corpuscular volume (MCV)Ordered By: Obinna Baltazar on 11-19-2023 MCV (RBC) [Entitic vol] 89.0 fL 80-94 [facility] Erythrocyte distribution wid th ratioOrdered By: Obinna Baltazar on 11-19-2023 Erythrocyte distribution width (RBC) [Ratio] 13.9 % 11.6-14.6 [facility] Erythrocyte distribution wid th standard deviationOrdered By: Obinnacharisse Baltazar on 11-19-2023 Erythrocyte distribution width (RBC) [Entitic vol] 44.7 fL 35.1-43.9 [facility] Hematocrit Auto (Bld) [Volum e fraction]Ordered By: Obinna Baltazar on 11-19-2023 Hematocrit (Bld) [Volume fraction] 44.4 % 40-54 [facility] Immature granulocytes/100 WB C Auto (Bld)Ordered By: Obinna Baltazar on 11-19-2023 Immature granulocytes/100 WBC (Bld) 1.400 % 0.0-0.9 [facility] Comment on above: IG% - Immature Granu locytes (promyelocytes, myelocytes and metamyelocytes) > 1% indicates that a LEFT SHIFT is Present. Laboratory - Chemistry and C hemistry - challengeOrdered By: Obinna Baltazar on 11-19-2023 CO2 [Moles/Vol] 31.0 mmol/L 21.0-32.0 [facility] Urea nitrogen/Creatinine [Mass ratio] 30.8 mg/mg 10-20 [facility] - Hematology and Cell countsOrdered By: Obinna Giovanny on 11-19-2023 MCH (RBC) [Entitic mass] 28.3 pg 27.0-32.0 [facility] MCHC (RBC) [Mass/Vol] 31.8 g/dL 32- [facility] Nucleated RBC/100 WBC (Bld) [Ratio] 0 % 0-5 [facility] Platelet mean volume (Bld) [Entitic vol] 9.5 fL 6.2-12.0 [facility] Platelets (Bld) [#/Vol] 286 10*3/uL 150-450 [facility] No Panel InformationOrdered By: Obinna Baltazar on 11-19-2023 Estimated GFR (MDRD) Amer 88 mL/min >60 [facility] Comment on above: GFR Calc Estimated GFR (MDRD) Non-Af Amer 73 mL/min >60 [facility] Comment on above: Non- GFR Calc RBC Auto (Bld) [#/Vol]Ordere d By: Obinna Baltazar on 11-19-2023 RBC (Bld) [#/Vol] 4.99 10*6/uL 4.6-6.2 [facility] Serum or plasma calcium andrez urement (mass/volume)Ordered By: Obinna Baltazar on 11-19-2023 Calcium [Mass/Vol] 9.0 mg/dL 8.5-10.1 [place] Serum or plasma creatinine m easurement (mass/volume)Ordered By: Obinna Baltazar on 11-19-2023 Creatinine [Mass/Vol] 1.04 mg/dL 0.70-1.30 [facility] Comment on above: The validity of the calculated GFR & GFRAA in patients over 70 years has not been determined. Clinical correlation is essential. Serum or plasma urea nitroge n measurement (mass/volume)Ordered By: Obinna Baltazar on 11-19-2023 Urea nitrogen [Mass/Vol] 32 mg/dL 7-18 [facility] Thin prep Papanicolaou smear with manual screeningOrdered By: Obinna Baltazar on 11-19-2023 Thin prep Papanicolaou smear with manual screening 5 5-15 [facility] LUC GANNON ([id number]) 1940 M Date Time Provider Department 09/04/23 JAYLAN TODD [facility] During your visit today, we recorded the following information about you: Jaylan Todd, PAKaseyC 09/04/2023 8:18 AM Signed Please call let patient know he tested positive for influenza A. He is out of the window for Tamiflu treatment. Recommend continuing plan of care as discussed at visit. If not improving follow-up with primary doctor. Jennifer Perdomo 09/04/2023 8:24 AM Signed Left message for patient to return call. Jennifer Burrows 09/05/2023 8:31 AM Signed Left detailed message on a secured voicemail. Jennifer Perdomo Allergies As of Date: 09/04/2023 Noted Allergy Reaction PENICILLINS 05/23/2019 2 - Rash Date Reviewed: 09/03/2023 Reviewed by: Alexander Will APRN.[employer] - Fully Assessed Reason for Visit: Results [95] Prescriptions as of 09/05/2023 - latanoprost (XALATAN) 0.005 % ophthalmic solution Use 1 Drop in both eyes daily at bedtime. - lisinopril (ZESTRIL) 10 mg tablet - furosemide (LASIX) 20 mg tablet - benzonatate (TESSALON PERLE) 100 mg capsule Take 1 capsule by mouth three times a day as needed for cough for up to 7 days. Problem List As Of Date: 09/04/2023 (None) Encounter Status:Closed by JENNIFER PERDOMO on 09/05/23 Normal [facility] CNOVon 09-03-2023 CNOV Office Visit (UCWSTR ) LUC GANNON ([id number]) 1940 M Date Time Provider Department 09/03/23 12:00 PM ALEXANDER WILL [facility] During your visit today, we recorded the following information about you: Temperature Pulse Respiration Blood pressure 98 degrees 77/minute 20/minute 124/71 Weight 122 kg Alexander Will APRN.[employer] 09/03/2023 12:15 PM Signed Subjective HPI Nontoxic-appearing male presents to urgent care with chief complaint of fever and cough. Duration of symptoms 3 days. Associated symptoms with today's chief complaint are on and off headache, muscle aches, fatigue, nausea, sore throat, nonproductive cough, and fever. Patient stated symptoms started abruptly. Patient states they have used [id number] medication with some success. Temp today of 101 prior to arrival on arrival. Did take Tylenol this did help. Patient states they were in contact with individuals who had similar signs and symptoms. Did take a negative COVID-19 home test today prior to arrival. Patient denies any pain at this time. Patient denies any visual changes, visual disturbance, shortness of breath, rash, exercise intolerance, pleuritic pain, productive cough, abdominal pain, nausea, vomiting, chest pain, or change in bowel or bladder habits. Past medical history prescription medications allergies reviewed. .Patient presents with: Flu Like Symptoms: Head congestion, fever, head pressure, drainage cough, nausea x 3 days PAST MEDICAL HISTORY Diagnosis Date Glaucoma PAST SURGICAL HISTORY Procedure Laterality Date COLONOSCOPY PARTIAL HIP REPLACEMENT Right REMOVAL GALLBLADDER REPAIR UMBILICAL RYAN,5+Y/O,REDUC repaired twice ALLERGIES Penicillins MEDICATIONS latanoprost (XALATAN) 0.005 % ophthalmic solution Use 1 Drop in both eyes daily at bedtime. lisinopril (ZESTRIL) 10 mg tablet furosemide (LASIX) 20 mg tablet History reviewed. No pertinent family history. Social History Tobacco Use Smoking status: Never Smokeless tobacco: Never BP 124/71 Pulse 77 Temp 36.7 ?C (98 ?F) Resp 20 Wt 122 kg (269 lb) SpO2 97% Review of Systems Constitutional: Positive for chills, fever and malaise/fatigue. HENT: Positive for congestion and sore throat. Negative for ear discharge, ear pain and sinus pain. Eyes: Negative for blurred vision, pain, discharge and redness. Respiratory: Positive for cough. Negative for hemoptysis, sputum production, shortness of breath, wheezing and stridor. Cardiovascular: Negative for chest pain. Gastrointestinal: Positive for nausea. Negative for abdominal pain, diarrhea and vomiting. Musculoskeletal: Positive for myalgias. Skin: Negative for itching and rash. Neurological: Positive for headaches. Negative for dizziness. Objective Physical Exam Constitutional: General: He is not in acute distress. Appearance: He is not diaphoretic. HENT: Head: Normocephalic. Jaw: No trismus, tenderness, swelling or pain on movement. Nose: Congestion present. Mouth/Throat: Mouth: Mucous membranes are moist. Pharynx: Oropharynx is clear. Uvula midline. No pharyngeal swelling, oropharyngeal exudate, posterior oropharyngeal erythema or uvula swelling. Eyes: Conjunctiva/sclera: Conjunctivae normal. Pupils: Pupils are equal, round, and reactive to light. Cardiovascular: Rate and Rhythm: Normal rate and regular rhythm. Heart sounds: Normal heart sounds. Pulmonary: Effort: Pulmonary effort is normal. No tachypnea, accessory muscle usage or respiratory distress. Breath sounds: Normal breath sounds. No stridor. No wheezing, rhonchi or rales. Abdominal: General: There is no distension. Palpations: Abdomen is soft. Tenderness: There is no abdominal tenderness. There is no guarding or rebound. Musculoskeletal: Cervical back: Normal range of motion and neck supple. No edema, erythema, rigidity or tenderness. No pain with movement. Normal range of motion. Lymphadenopathy: Cervical: No cervical adenopathy. Skin: General: Skin is warm and dry. Neurological: Mental Status: He is alert and oriented to person, place, and time. ASSESSMENT/PLAN: 1. Viral illness - ICD9: 079.99, ICD10: B34.9 (primary diagnosis) - COVID AND INFLUENZA A/B AND RSV NAAT, ROUTINE 2. Suspected COVID-19 virus infection - ICD9: V01.79, ICD10: Z20.822 - COVID AND INFLUENZA A/B AND RSV NAAT, ROUTINE Patient nontoxic-appearing. Suspicious of viral illness with positive exposure similar signs and symptoms. Test for COVID-19 and influenza. If patient is positive for COVID-19 and is interested in antiviral therapy. Patient was educated on supportive therapies. Patient will follow up with primary care provider as needed. Patient was instructed to immediately proceed to emergency room for any new, worsening, or symptoms lasting longer than anticipated. The patient's clini (more content not included)... Normal [facility] COVID AND INFLUENZA A/B AND RSV NAAT, ROUTINEon 09-03-2023 SARS-CoV-2 (COVID-19) RNA ZOYA+probe Ql (Unsp spec) COVID 19 RESULT: Not detected The method used is RT-PCR or an equivalent NAAT method. Reference Range (the expected result in uninfected individuals): Not detected INFLUENZA A PCR: Detected INFLUENZA B PCR: Not detected RSV PCR: Not detected Abnormal [facility] Comment on above: Performed By: #### C VFLRS #### [facility] CLIA [id number] [address] [place] [address] [place] Basophil percentageOrdered B y: Mary Abernathy on 04-27-2023 Bilirubin [Mass/Vol] 0.60 mg/dL 0.20-1.00 [facility] Comment on above: For patients on eltr ombopag therapy, use of Dimension [place] TBIL is not recommended. Chloride [Moles/Vol] 106 mmol/L 98-107 [facility] Cholesterol [Mass/Vol] 213 mg/dL <200 [facility] Comment on above: <200 mg/dL Desirable 200-240 mg/dL Borderline >240 mg/dL High Risk Glucose [Mass/Vol] 115 mg/dL 74-106 [place] Comment on above: Fasting Glucose resu lt from 100 to 125 mg/dL suggests IMPAIRED HOMEOSTASIS per A.D.A. criteria. Potassium [Moles/Vol] 4.3 mmol/L 3.5-5.1 [facility] Protein [Mass/Vol] 7.3 g/dL 6.4-8.2 [place] Sodium [Moles/Vol] 138 mmol/L 136-145 [place] Triglyceride [Mass/Vol] 148 mg/dL <199 [facility] Comment on above: The drugs N-Acetylcy steine and Metamizole may falsely depress this assay.Serum Triglycerides Reference Interval Normal <150 mg/dL Borderline high 150 - 199 mg/dL High 200 - 499 mg/dL Very High > or = 500 mg/dL Direct bilirubinOrdered By: Mary Abernathy on 04-27-2023 Bilirubin.direct [Mass/Vol] 0.13 mg/dL 0.00-0.30 [facility] - Chemistry and C hemistry - challengeOrdered By: Mary Abernathy on 04-27-2023 ALP [Catalytic activity/Vol] 69 U/L 45-117 [facility] ALT [Catalytic activity/Vol] 24 U/L 16-61 [facility] CO2 [Moles/Vol] 27.0 mmol/L 21.0-32.0 [facility] Globulin (S) [Mass/Vol] 3.5 g/dL 2.2-4.2 [facility] Urea nitrogen/Creatinine [Mass ratio] 28.3 mg/mg 10-20 [facility] No Panel InformationOrdered By: Mary Abernathy on 04-27-2023 Estimated GFR (MDRD) Amer 97 mL/min >60 [facility] Comment on above: GFR Calc Estimated GFR (MDRD) Non-Af Amer 80 mL/min >60 [facility] Comment on above: Non- GFR Calc Urine Microalbumin/Creatinine Ratio 16.1 mg/g CRE <30 [facility] Serum or plasma albumin andrez urement (mass/volume)Ordered By: Mary Abernathy on 04-27-2023 Albumin [Mass/Vol] 3.8 g/dL 3.2-5.0 [place] Serum or plasma calcium andrez urement (mass/volume)Ordered By: Mary Abernathy on 04-27-2023 Calcium [Mass/Vol] 9.0 mg/dL 8.5-10.1 [place] Serum or plasma cholesterol in HDL measurement (mass/volume)Ordered By: Mary Abernathy on 04-27-2023 Cholesterol in HDL [Mass/Vol] 45 mg/dL >40 [facility] Comment on above: The drugs N-Acetylcy steine and Metamizole may falsely depress this assay. Reference Range HDL <40 mg/dL Low HDL Cholesterol HDL >or= 60 mg/dL High HDL Cholesterol Serum or plasma cholesterol in VLDL measurement (mass/volume)Ordered By: Mary Abernathy on 04-27-2023 Cholesterol in VLDL [Mass/Vol] 30 mg/dL 5-40 [facility] Serum or plasma creatinine m easurement (mass/volume)Ordered By: Mary Abernathy on 04-27-2023 Creatinine [Mass/Vol] 0.95 mg/dL 0.70-1.30 [facility] Comment on above: The validity of the calculated GFR & GFRAA in patients over 70 years has not been determined. Clinical correlation is essential. Serum or plasma low density lipoprotein (LDL) cholesterol measurement (mass/volume)Ordered By: Mary Abernathy on 04-27-2023 Cholesterol in LDL [Mass/Vol] 138 mg/dL 0-130 [facility] Serum or plasma urea nitroge n measurement (mass/volume)Ordered By: Mary Abernathy on 04-27-2023 Urea nitrogen [Mass/Vol] 27 mg/dL 7-18 [facility] Thin prep Papanicolaou smear with manual screeningOrdered By: Mary Abernathy on 04-27-2023 Thin prep Papanicolaou smear with manual screening 16 U/L 15-37 [facility] Thin prep Papanicolaou smear with manual screening 5 5-15 [facility] Thin prep Papanicolaou smear with manual screening 16.9 mg/L NO RANGE EST. [facility] Urine creatinine measurement (mass/volume)Ordered By: Mary Abernathy on 04-27-2023 Creatinine (U) [Mass/Vol] 105.00 mg/dL NO RANGE EST. [facility] Whole blood hemoglobin A1c/t otal hemoglobin ratio (mass fraction)Ordered By: Mary Abernathy on 04-09-2023 HbA1c (Bld) [Mass fraction] 6.2 % 3.8-5.6 [facility] Comment on above: Normal < 5.7 % Predi abetic 5.7 - 6.4 % Diabetic >or= 6.5 % Please note range changes. Absolute lymphocyte counton 07-07-2022 Lymphocytes Auto (Unsp spec) [#/Vol] 1.23 10*3/uL 0.83-4.51 [facility] Work Phone: Albumin Elph [Mass/Vol]on Albumin [Mass/Vol] 4.0 g/dL 2.9-4.4 [place] Work Phone: Basophil percentageon 2021 Basophil percentage 3.3 mg/dL 2.5-4.9 [facility] Work Phone: Basophils/100 WBC (Bld) 0.4 % 0-1 [facility] Work Phone: Bilirubin [Mass/Vol] 0.50 mg/dL 0.20-1.00 [facility] Work Phone: Comment on above: For patients on eltr ombopag therapy, use of Dimension [place] TBIL is not recommended. Chloride [Moles/Vol] 107 mmol/L 98-107 [facility] Work Phone: Eosinophils/100 WBC (Bld) 2.3 % 0-5 [facility] Work Phone: Glucose [Mass/Vol] 111 mg/dL 74-106 [place] Work Phone: Comment on above: Fasting Glucose resu lt from 100 to 125 mg/dL suggests IMPAIRED HOMEOSTASIS per A.D.A. criteria. Neutrophils (Bld) [#/Vol] 5.3 10*3/uL 2.0-7.7 [facility] Work Phone: Neutrophils/100 WBC (Bld) 71.6 % 47-70 [facility] Work Phone: Potassium [Moles/Vol] 3.9 mmol/L 3.5-5.1 [place] [facility] Work Phone: Protein [Mass/Vol] 7.0 g/dL 6.4-8.2 [place] [facility] Work Phone: Sodium [Moles/Vol] 142 mmol/L 136-145 [place] [facility] Work Phone: WBC (Bld) [#/Vol] 7.4 10*3/uL 4.4-11.0 [place] [facility] Work Phone: Blood erythrocytes count (nu mber/volume)on 07-07-2022 RBC (Bld) [#/Vol] 4.87 10*6/uL 4.6-6.2 [place] [facility] Work Phone: Blood hemoglobin measurement (mass/volume)on 07-07-2022 Hemoglobin (Bld) [Mass/Vol] 14.2 g/dL 13.0-16.5 [facility] Work Phone: Blood lymphocytes/100 leukoc yteson 07-07-2022 Lymphocytes/100 WBC (Bld) 16.7 % 19-41 [facility] Work Phone: Blood monocytes/100 leukocyt eson 07-07-2022 Monocytes/100 WBC (Bld) 8.7 % 0-10 [facility] Work Phone: Blood platelet mean volumeon 07-07-2022 Platelet mean volume (Bld) [Entitic vol] 9.3 fL 6.2-12.0 [facility] Work Phone: Determination of erythrocyte mean corpuscular volume (MCV)on 07-07-2022 MCV (RBC) [Entitic vol] 88.7 fL 80-94 [facility] Work Phone: Erythrocyte sedimentation ra megan 07-07-2022 ESR (Bld) [Velocity] 15 mm[facility]h 0-[facility] Work Phone: Hematocrit Auto (Bld) [Volum e fraction]on 07-07-2022 Hematocrit (Bld) [Volume fraction] 43.2 % 40-54 [facility] Work Phone: Hemoglobin in reticulocytes (mass per reticulocyte)on 07-07-2022 Hemoglobin (Reticulocytes) [Entitic mass] 32.9 pg 30-35 [facility] Work Phone: Interpretation of serum or p lasma protein pattern by immunofixation (narrative resulton 07-07-2022 Protein Fractions Immunofixation Manuel [Interp] See comment [facility] Work Phone: Comment on above: Result: Not Observed Laboratory - Chemistry and C hemistry - challengeon 07-07-2022 ALP [Catalytic activity/Vol] 84 U/L 45-117 [facility] Work Phone: ALT [Catalytic activity/Vol] 29 U/L 16-61 [facility] Work Phone: [phone] CO2 [Moles/Vol] 30.0 mmol/L 21.0-32.0 [facility] Work Phone: Cobalamin (Vitamin B12) [Mass/Vol] 435 pg/mL 211-911 [facility] Work Phone: Magnesium [Mass/Vol] 2.4 mg/dL 1.6-2.6 [facility] Work Phone: [phone] Urea nitrogen/Creatinine [Mass ratio] 22.5 mg/mg 10-20 [facility] Work Phone: Laboratory - Hematology and Cell countson 07-07-2022 Erythrocyte distribution width (RBC) [Entitic vol] 43.1 fL 35.1-43.9 [facility] Work Phone: [phone] Erythrocyte distribution width (RBC) [Ratio] 13.3 % 11.6-14.6 [facility] Work Phone: Immature granulocytes/100 WBC (Bld) 0.300 % 0.0-0.9 [facility] Work Phone: Comment on above: IG% - Immature Granu locytes (promyelocytes, myelocytes and metamyelocytes) > 1% indicates that a LEFT SHIFT is Present. MCH (RBC) [Entitic mass] 29.2 pg 27.0-32.0 [facility] Work Phone: [phone] Nucleated RBC/100 WBC (Bld) [Ratio] 0 % 0-5 [facility] Work Phone: [phone] MCHC Auto (RBC) [Mass/Vol]on 07-07-2022 MCHC (RBC) [Mass/Vol] 32.9 g/dL 32-36 [facility] Work Phone: No Panel Informationon 07-07 Addendum Document Comment . [facility] Work Phone: [phone] Comment on above: Protein electrophore sis scan will follow via computer,mail, or cob sawyer delivery. Estimated GFR (MDRD) Amer 82 mL/min >60 [facility] Work Phone: [phone] Comment on above: GFR Calc Estimated GFR (MDRD) Non-Af Amer 68 mL/min >60 [facility] Work Phone: [phone] Comment on above: Non- GFR Calc Free Lambda Light Chains, Quant 14.4 mg/L 5.7-26.3 [facility] Work Phone: [phone] Immature Reticulocyte Fraction 5.00 % 3.00-15.90 [facility] Work Phone: [phone] Reticulocyte Count 0.96 % 0.5-1.5 [place] Work Phone: [phone] Platelets bldon 07-07-2022 Platelets (Bld) [#/Vol] 207 10*3/uL 150-450 [facility] Work Phone: [phone] Serum [id number] measu rement by electrophoresison 07-07-2022 Alpha 1 globulin Elph [Mass/Vol] 0.3 g/dL 0.0-0.4 [facility] Work Phone: [phone] Alpha 1 globulin Elph [Mass/Vol] 0.7 g/dL 0.4-1.0 [facility] Work Phone: [phone] Serum globulin measurement ( mass/volume)on 07-07-2022 Globulin (S) [Mass/Vol] 2.7 g/dL 2.2-3.9 [facility] Work Phone: [phone] Serum immunoglobulin kappa l ight chains/immunoglobulin lambda light chains mass ratioon 07-07-2022 Immunoglobulin light chains.kappa/Immunoglobu kameron light chains.lambda (S) [Mass ratio] 1.86 0.26-1.65 [facility] Work Phone: [phone] Comment on above: Performed at: [facility] [employer] [address] [id number] Director: Apollo Mcgill PhD, Phone: [phone] Serum or plasma IgA measurem ent (mass/volume)on 07-07-2022 IgA [Mass/Vol] 105 mg/dL 61-437 [facility] Work Phone: [phone] Serum or plasma IgG measurem ent (mass/volume)on 07-07-2022 IgG [Mass/Vol] 823 mg/dL 603-1613 [facility] Work Phone: [phone] Serum or plasma IgM measurem ent (mass/volume)on 07-07-2022 IgM [Mass/Vol] 142 mg/dL 15-143 [facility] Work Phone: [phone] Serum or plasma albumin andrez urement (mass/volume)on 07-07-2022 Albumin [Mass/Vol] 3.6 g/dL 3.2-5.0 [place] Work Phone: [phone] Serum or plasma albumin/glob ulin mass ratioon 07-07-2022 Albumin/Globulin [Mass ratio] 1.1 {ratio} 0.9-2.4 [facility] Work Phone: [phone] Serum or plasma beta globuli n measurement by electrophoresis (mass/volume)on 07-07-2022 Beta globulin Elph [Mass/Vol] 0.9 g/dL 0.7-1.3 [facility] Work Phone: [phone] Serum or plasma calcium andrez urement (mass/volume)on 07-07-2022 Calcium [Mass/Vol] 8.8 mg/dL 8.5-10.1 [place] Work Phone: Serum or plasma creatinine m easurement (mass/volume)on 07-07-2022 Creatinine [Mass/Vol] 1.11 mg/dL 0.70-1.30 [facility] Work Phone: Comment on above: The validity of the calculated GFR & GFRAA in patients over 70 years has not been determined. Clinical correlation is essential. Serum or plasma ferritin stella surement (mass/volume)on 07-07-2022 Ferritin [Mass/Vol] 195 ng/mL 26-388 [facility] Work Phone: Serum or plasma folate measu rement (mass/volume)on 07-07-2022 Folate [Mass/Vol] 19.40 ng/mL 3.1-55.4 [place] Work Phone: Serum or plasma gamma globul in measurement by electrophoresis (mass/volume)on 07-07-2022 Gamma globulin Elph [Mass/Vol] 0.8 g/dL 0.4-1.8 [facility] Work Phone: Serum or plasma immunoelectr ophoresis interpretation (nominal result)on 07-07-2022 Interpretation IEP [Interp] Comment: . [facility] Work Phone: Comment on above: Presence of monoclon al protein is unclear at this time. Suggestrepeat in 3 to 6 months if clinically indicated. Serum or plasma immunoglobul in kappa light chains measurement (mass/volume)on 07-07-2022 Immunoglobulin light chains.kappa [Mass/Vol] 26.8 mg/L 3.3-19.4 [facility] Work Phone: Serum or plasma urea nitroge n measurement (mass/volume)on 07-07-2022 Urea nitrogen [Mass/Vol] 25 mg/dL 7-18 [facility] Work Phone: Thin prep Papanicolaou smear with manual screeningon 07-07-2022 Thin prep Papanicolaou smear with manual screening 20 U/L 15-37 [facility] Work Phone: Thin prep Papanicolaou smear with manual screening 5 5-15 [facility] Work Phone: [phone] Thin prep Papanicolaou smear with manual screening 197 U/L 87-241 [facility] Work Phone: Thin prep Papanicolaou smear with manual screening 1.5 0.7-1.7 [facility] Work Phone: [phone] Total protein bloodon 2021 Protein [Mass/Vol] 6.7 g/dL 6.0-8.5 [place] Work Phone: [phone] Basophil percentageon 2021 Chloride [Moles/Vol] 106 mmol/L 98-107 [facility] Work Phone: [phone] Glucose [Mass/Vol] 105 mg/dL 74-106 [place] Work Phone: [phone] Comment on above: Fasting Glucose resu lt from 100 to 125 mg/dL suggests IMPAIRED HOMEOSTASIS per A.D.A. criteria. Potassium [Moles/Vol] 3.9 mmol/L 3.5-5.1 [facility] Work Phone: Sodium [Moles/Vol] 141 mmol/L 136-145 [place] Work Phone: [phone] Laboratory - Chemistry and C hemistry - challengeon 05-20-2022 CO2 [Moles/Vol] 30.0 mmol/L 21.0-32.0 [facility] Work Phone: Natriuretic peptide B (Bld) [Mass/Vol] 447.4 pg/mL 0-100 [facility] Work Phone: [phone] Urea nitrogen/Creatinine [Mass ratio] 21.3 mg/mg 10-20 [facility] Work Phone: [phone] Panel Informationon 05-20 Estimated GFR (MDRD) Amer 105 mL/min >60 [facility] Work Phone: [phone] Comment on above: GFR Calc Estimated GFR (MDRD) Non-Af Amer 87 mL/min >60 [facility] Work Phone: Comment on above: Non- GFR Calc Serum or plasma calcium andrez urement (mass/volume)on 05-20-2022 Calcium [Mass/Vol] 9.1 mg/dL 8.5-10.1 [place] Work Phone: Serum or plasma creatinine m easurement (mass/volume)on 05-20-2022 Creatinine [Mass/Vol] 0.89 mg/dL 0.70-1.30 [facility] Work Phone: Comment on above: The validity of the calculated GFR & GFRAA in patients over 70 years has not been determined. Clinical correlation is essential. Serum or plasma urea nitroge n measurement (mass/volume)on 05-20-2022 Urea nitrogen [Mass/Vol] 19 mg/dL 7-18 [facility] Work Phone: Thin prep Papanicolaou smear with manual screeningon 05-20-2022 Thin prep Papanicolaou smear with manual screening 5 5-15 [facility] Work Phone: Basophil percentageon 2021 Basophil percentage 0 SEEN /hpf [facility] Work Phone: Bilirubin Test strip Ql (U)o n 12-19-2021 Bilirubin Ql (U) Negative Negative [facility] Work Phone: Ketones Test strip Ql (U)on 12-19-2021 Ketones Ql (U) Negative Negative [facility] Work Phone: [phone] Mucus LM Ql (Urine sed)on Mucus Ql (Urine sed) 0 SEEN /hpf [facility] Work Phone: Nitrite Test strip Ql (U)on 12-19-2021 Nitrite Ql (U) Negative Negative [facility] Work Phone: No Panel Informationon 12-19 Stool Calprotectin 23 ug/g [place] Work Phone: Comment on above: Concentration Interp retation Follow-Up<16 - 50 ug/g Normal None>50 -120 ug/g Borderline Re-evaluate in 4-6 weeks >120 ug/g Abnormal Repeat as clinically indicatedPerformed at: - [facility] [id number] Director: Maddie Davis MD, Phone: [phone] Protein Test strip Ql (U)on 12-19-2021 Protein Ql (U) 30 mg/dl Negative [facility] Work Phone: Squamous epithelial cells de tection in urine sediment by light microscopyon 12-19-2021 Epithelial cells.squamous LM Ql (Urine sed) 0 SEEN /hpf [facility] Work Phone: Urine blood detectionon 11-22 RBC Ql (U) 10 /ul Negative [facility] Work Phone: RBC Ql (U) 0-5 SEEN /hpf [facility] Work Phone: Urine clarityon 12-19-2021 Clarity (U) Clear Clear [facility] Work Phone: Urine color determinationon 12-19-2021 Color (U) Yellow Yellow [facility] Work Phone: Urine glucose detectionon Glucose Ql (U) Normal mg/dl Normal [facility] Work Phone: Urine leukocyte esterase det ection by dipstickon 12-19-2021 Leukocyte esterase Test strip Ql (U) Negative Negative [facility] Work Phone: Urine pHon 12-19-2021 pH (U) 5.0 [pH] [facility] Work Phone: Urine sediment bacteria coun t by microscopy (number/high power field)on 12-19-2021 Bacteria LM.HPF (Urine sed) [#/Area] 0 /[HPF] None Seen [facility] Work Phone: Urine specific gravity measu rementon 12-19-2021 Specific gravity (U) [Rel density] 1.025 [facility] Work Phone: Urobilinogen Auto test strip Ql (U)on 12-19-2021 Urobilinogen Ql (U) Normal mg/dl Normal [facility] Work Phone: [phone] Absolute lymphocyte counton 12-15-2021 Lymphocytes Auto (Unsp spec) [#/Vol] 0.92 10*3/uL 0.83-4.51 [facility] Work Phone: [phone] Albumin Elph [Mass/Vol]on Albumin [Mass/Vol] 3.6 g/dL [place] Work Phone: [phone] Atypical perinuclear antineu trophil cytoplasmic antibodies measurementon 12-15-2021 Neutrophil cytoplasmic Ab.perinuclear.atypical IF (S) [Titer] 1:640 titer Neg:<1:20 [facility] Work Phone: [phone] Comment on above: The atypical pANCA p attern has been observed in asignificant percentage of patients with ulcerative colitis,primary sclerosing cholangitis and autoimmune hepatitis.Performed at: [employer] [address] [id number] Director: Apollo Mcgill PhD, Phone: [phone] at: [facility] [employer] [id number] Director: Maddie Davis MD, Phone: [phone] Basophil percentageon 2021 Basophil percentage < 0.[address] [facility] Work Phone: [phone] Basophils/100 WBC (Bld) 0.5 % 0-1 [facility] Work Phone: [phone] Bilirubin [Mass/Vol] 0.70 mg/dL 0.20-1.00 [facility] Work Phone: [phone] Comment on above: For patients on eltr ombopag therapy, use of Dimension [place] TBIL is not recommended. Chloride [Moles/Vol] 108 mmol/L 98-107 [facility] Work Phone: [phone] Eosinophils/100 WBC (Bld) 2.1 % 0-5 [facility] Work [phone] Glucose [Mass/Vol] 112 mg/dL 74-106 [place] Work Phone: Comment on above: Fasting Glucose resu lt from 100 to 125 mg/dL suggests IMPAIRED HOMEOSTASIS per A.D.A. criteria. Neutrophils (Bld) [#/Vol] 6.9 10*3/uL 2.0-7.7 [facility] Work Phone: Neutrophils/100 WBC (Bld) 79.9 % 47-70 [facility] Work Phone: [phone] Potassium [Moles/Vol] 3.9 mmol/L 3.5-5.1 [facility] Work Phone: [phone] Protein [Mass/Vol] 7.2 g/dL 6.4-8.2 [place] Work Phone: [phone] Sodium [Moles/Vol] 141 mmol/L 136-145 [place] Work Phone: [phone] WBC (Bld) [#/Vol] 8.7 10*3/uL 4.4-11.0 [place] Work Phone: [phone] Blood erythrocytes count (nu mber/volume)on 12-15-2021 RBC (Bld) [#/Vol] 5.32 10*6/uL 4.6-6.2 [facility] Work Phone: [phone] Blood hemoglobin measurement (mass/volume)on 12-15-2021 Hemoglobin (Bld) [Mass/Vol] 15.1 g/dL 13.0-16.5 [facility] Work Phone: [phone] Blood lymphocytes/100 leukoc yteson 12-15-2021 Lymphocytes/100 WBC (Bld) 10.6 % 19-41 [facility] Work Phone: [phone] Blood monocytes/100 leukocyt eson 12-15-2021 Monocytes/100 WBC (Bld) 6.2 % 0-10 [facility] Work Phone: Blood platelet mean volumeon 12-15-2021 Platelet mean volume (Bld) [Entitic vol] 9.4 fL 6.2-12.0 [facility] Work Phone: [phone] Determination of erythrocyte mean corpuscular volume (MCV)on 12-15-2021 MCV (RBC) [Entitic vol] 88.2 fL 80-94 [facility] Work Phone: [phone] Erythrocyte sedimentation ra megan 12-15-2021 ESR (Bld) [Velocity] 29 mm[facility]h 0-[facility] Work Phone: [phone] Hematocrit Auto (Bld) [Volum e fraction]on 12-15-2021 Hematocrit (Bld) [Volume fraction] 46.9 % 40-54 [facility] Work Phone: [phone] Interpretation of serum or p lasma protein pattern by immunofixation (narrative resulton 12-15-2021 Protein Fractions Immunofixation Manuel [Interp] See comment [facility] Work Phone: [phone] Comment on above: Due to the small adeola ntity of monoclonal protein, unable toquantitate the M-spike. Laboratory - Chemistry and C hemistry - challengeon 12-15-2021 ALP [Catalytic activity/Vol] 79 U/L 45-117 [facility] Work Phone: [phone] ALT [Catalytic activity/Vol] 29 U/L 16-61 [facility] Work Phone: [phone] CO2 [Moles/Vol] 29.0 mmol/L 21.0-32.0 [facility] Work Phone: [phone] Globulin (S) [Mass/Vol] 3.5 g/dL 2.2-4.2 [facility] Work Phone: [phone] Urea nitrogen/Creatinine [Mass ratio] 18.5 mg/mg 10-20 [facility] Work Phone: [phone] Laboratory - Hematology and Cell countson 12-15-2021 Erythrocyte distribution width (RBC) [Entitic vol] 42.9 fL 35.1-43.9 [facility] Work Phone: [phone] Erythrocyte distribution width (RBC) [Ratio] 13.2 % 11.6-14.6 [facility] Work Phone: [phone] Immature granulocytes/100 WBC (Bld) 0.700 % 0.0-0.9 [facility] Work Phone: [phone] Comment on above: IG% - Immature Granu locytes (promyelocytes, myelocytes and metamyelocytes) > 1% indicates that a LEFT SHIFT is Present. MCH (RBC) [Entitic mass] 28.4 pg 27.0-32.0 [facility] Work Phone: [phone] Nucleated RBC/100 WBC (Bld) [Ratio] 0 % 0-5 [facility] Work Phone: [phone] MCHC Auto (RBC) [Mass/Vol]on 12-15-2021 MCHC (RBC) [Mass/Vol] 32.2 g/dL 32-36 [facility] Work Phone: [phone] Panel Informationon 12-15 Addendum Document Comment [facility] Work Phone: [phone] Comment on above: Protein electrophore sis scan will follow via computer,mail, or cob sawyer delivery. Centromere B Antibody <0.2 AI [facility] Work Phone: [phone] Endomysial IgA Antibody Negative Negative [facility] Work Phone: [phone] Estimated GFR (MDRD) Amer 95 mL/min >60 [facility] Work Phone: [phone] Comment on above: GFR Calc Estimated GFR (MDRD) Non-Af Amer 79 mL/min >60 [facility] Work Phone: [phone] Comment on above: Non- GFR Calc Immunoglobulin E 54 IU/mL [facility] Work Phone: [phone] Miscellaneous Test See comment [facility] Work Phone: [phone] Comment on above: TESTING PERFORMED AT [facility]. ORIGINAL REPORT ON FILE IN LAB CONTAINS ADDITIONAL TEST SITE INFORMATION. TEST RESULT [facility] Prognostic PanelgASCA 47 units 0-50 Negative <45 Equivocal 45 - 50 Positive >50ACCA 36 units 0-90 Negative <80 Equivocal 80 - 90 Positive >90ALCA 13 units 0-60 Negative <55 Equivocal 55 - 60 Positive >60AMCA 297 High units 0-100 Negative < 90 Equivocal 90 - 100 Positive >100In patients diagnosed with Crohn's disease, a positive result for two or more antibodies in this panel (Lizette, ACCA, ALCA, or AMCA) has been reported to be associated with an elevated risk of more aggressive disease behavior (1-4). The incidence of complications and/or need for abdominal surgery has been reported to increase with both the number of positive antibodies and with the relative reactivity of individual antibodies (1-4).1. Nadeem I. et al. Gastroenterology. 2006; 131:366-3782. Elina M. et al. Gut. 2007; 56:1394-51485. Tyrone M. et al. Am J Gastroenterology. 2007; 102:1-174. Tamar Sharif. et al. World J Gastroenterology. 2008; 14:5115-5124This test was developed and its performance characteristics determined by [facility]. It has not been cleared or approved by the Food and Drug Administration. The FDA has determined that such clearance or approval is not necessary. Prostate Specific Antigen Total 2.84 ng/mL 0.0-4.0 [facility] Work Phone: Comment on above: This test was perfor med using the TPSA assay method for the[employer] chemistry system. Values obtained with differentassay methods cannot be used interchangably.When changing PSA assays in the course of monitoring apatient, additional sequential testing should be carriedout to confirm baseline values. TRAFFIC SUPERINTENDENT Antibody <0.2 AI [facility] Work Phone: Platelets bldon 12-15-2021 Platelets (Bld) [#/Vol] 250 10*3/uL 150-450 [facility] Work Phone: Serum DNA double strand anti body assay (units/volume)on 04-25-2022 DNA double strand Ab Qn (S) [IU]/mL [facility] Work Phone: Comment on above: Negative <5 Equivoca l 5 - 9 Positive >9 Serum Neha-1 antibody assay (u nits/volume)on 12-15-2021 Neha-1 extractable nuclear Ab Qn (S) <0.2 AI [facility] Work Phone: Serum Scl-70 extractable nuc lear antibody assay (units/volume)on 12-15-2021 SCL-70 extractable nuclear Ab Qn (S) <0.2 AI [facility] Work Phone: Serum Balderrama extractable nucl ear antibody detectionon 12-15-2021 Balderrama extractable nuclear Ab Ql (S) <0.2 [facility] Work Phone: Serum tljaw-0-qbpnnazw measu rement by electrophoresison 12-15-2021 Alpha 1 globulin Elph [Mass/Vol] 0.3 g/dL [facility] Work Phone: [phone] 1 globulin Elph [Mass/Vol] 0.8 g/dL [facility] Work Phone: [phone] Serum classic neutrophil cyt oplasmic antibody assay (units/volume)on 12-15-2021 Neutrophil cytoplasmic Ab.classic Qn (S) <1:20 titer Neg:<1:20 [facility] Work Phone: Serum globulin measurement ( mass/volume)on 12-15-2021 Globulin (S) [Mass/Vol] 2.9 g/dL [facility] Work Phone: Serum or plasma C reactive p rotein measurement (mass/volume)on 12-15-2021 CRP [Mass/Vol] 4.62 mg/L 0.0-3.0 [facility] Work Phone: Comment on above: C-Reactive Protein ( CRP) provides useful information for thediagnosis, therapy and monitoring of inflammatory processesand associated diseases. For the evaluation of Relative Riskfor Cardiovascular Disease, a High Sensitivity CRP (HSCRP)should be ordered. Serum or plasma IgA measurem ent (mass/volume)on 12-15-2021 IgA [Mass/Vol] 116 mg/dL [facility] Work Phone: [phone] Serum or plasma IgG measurem ent (mass/volume)on 12-15-2021 IgG [Mass/Vol] 821 mg/dL [facility] Work Phone: [phone] Serum or plasma IgM measurem ent (mass/volume)on 12-15-2021 IgM [Mass/Vol] 160 mg/dL [facility] Work Phone: [phone] Serum or plasma albumin andrez urement (mass/volume)on 12-15-2021 Albumin [Mass/Vol] 3.7 g/dL 3.2-5.0 [place] Work Phone: [phone] Serum or plasma albumin/glob ulin mass ratioon 12-15-2021 Albumin/Globulin [Mass ratio] 1.1 {ratio} 0.9-2.4 [facility] Work Phone: [phone] Serum or plasma beta globuli n measurement by electrophoresis (mass/volume)on 12-15-2021 Beta globulin Elph [Mass/Vol] 0.9 g/dL [facility] Work Phone: [phone] Serum or plasma calcium andrez urement (mass/volume)on 12-15-2021 Calcium [Mass/Vol] 9.0 mg/dL 8.5-10.1 [place] Work Phone: [phone] Serum or plasma creatinine m easurement (mass/volume)on 12-15-2021 Creatinine [Mass/Vol] 0.97 mg/dL 0.70-1.30 [facility] Work Phone: [phone] Comment on above: The validity of the calculated GFR & GFRAA in patients over 70 years has not been determined. Clinical correlation is essential. Serum or plasma gamma globul in measurement by electrophoresis (mass/volume)on 12-15-2021 Gamma globulin Elph [Mass/Vol] 0.9 g/dL [facility] Work Phone: Serum or plasma immunoelectr ophoresis interpretation (nominal result)on 12-15-2021 Interpretation IEP [Interp] Comment [facility] Work Phone: Comment on above: Immunofixation shows IgM monoclonal protein with kappalight chain specificity. Serum or plasma urea nitroge n measurement (mass/volume)on 12-15-2021 Urea nitrogen [Mass/Vol] 18 mg/dL 7-18 [facility] Work Phone: Serum perinuclear neutrophil cytoplasmic antibody titer by immunofluorescenceon 12-15-2021 Neutrophil cytoplasmic Ab.perinuclear IF (S) [Titer] <1:20 titer Neg:<1:20 [facility] Work Phone: Comment on above: The presence of posi tive fluorescence exhibiting P-ANCA orC-ANCA patterns alone is not specific for the diagnosis ofWegener's Granulomatosis (WG) or microscopic polyangiitis.Decisions about treatment should not be based solely onANCA IFA results. The International ANCA Group Consensusrecommends follow up testing of positive sera with both NE-3 and MPO-ANCA enzyme immunoassays. As many as 5% serumsamples are positive only by EIA. Ref. AM J Clin Blwyoq9399;111:507-513. Serum tissue transglutaminas e IgA antibody assay (units/volume)on 12-15-2021 tTG IgA Qn (S) <2 U/mL [facility] Work Phone: Comment on above: Negative 0 - 3 Weak Positive 4 - 10 Positive >10 Tissue Transglutaminase (tTG) has been identified as the endomysial antigen. Studies have demonstr- ated that endomysial IgA antibodies have over 99% specificity for gluten sensitive enteropathy. Thin prep Papanicolaou smear with manual screeningon 12-15-2021 Thin prep Papanicolaou smear with manual screening 20 U/L 15-37 [facility] Work Phone: [phone] Thin prep Papanicolaou smear with manual screening 4 5-15 [facility] Work Phone: [phone] Thin prep Papanicolaou smear with manual screening 206 U/L 87-241 [facility] Work Phone: [phone] Thin prep Papanicolaou smear with manual screening 1.3 [facility] Work Phone: [phone] Total protein bloodon 2021 Protein [Mass/Vol] 6.5 g/dL [place] Work Phone: No Panel Informationon 09-01 Prostate Specific Antigen Screen 2.71 ng/mL 0.00-4.00 [facility] Work Phone: Comment on above: This test was perfor med using the TPSA assay method for PPS chemistry system. Values obtained with differentassay methods cannot be used interchangably.When changing PSA assays in the course of monitoring apatient, additional sequential testing should be carriedout to confirm baseline values. PROGRESSon 05-23-2019 PROGRESS HNO ID: [id number] Author: Tom (Alan) ALAN Balderrama Service: ? Author Type: Clinical Cloth Stretcher Type: Progress Notes Filed: 05/23/2019 7:38 AM Note Text: Radiology Service Progress Note PATIENT NAME: Luc Gannon DATE OF SERVICE: May 23, 2019 TIME: 7:38 AM PATIENT IDENTITY VERIFICATION COMPLETED USING TWO (2) METHODS: Name and Date of confirmed by patient verbally. PATIENT GENDER DATA: Male PATIENT RELEVANT IMPLANT DATA REVIEWED: Not Applicable RADIOLOGY DEPARTMENT: General X-ray: Exam(s) Completed: Pelvis X-Ray: Pelvis General AP Lower Extremity X-Ray(s): Knee, AP / Lat / Merchant Bilateral and Wt. Bearing: PERIPHERAL IV DATA: Not applicable SIGNED BY: ALAN Brody May 23, 2019 7:38 AM [facility] XR KNEE 3V AP/LAT/CLINTON BILon 05-23-2019 XR KNEE 3V AP/LAT/CLINTON WILFRID * * *Final Report* * * DATE OF EXAM: May 23 2019 7:36AM POPPY [id number] - XR KNEE 3V AP/LAT/CLINTON WILFRID / PROCEDURE REASON: multiple diagnoses * * * * Physician Interpretation * * * * PROCEDURE: Bilateral knees and pelvis INDICATION: Pain in both knees and pelvis, unspecified chronicity . Left DEVIN TECHNIQUE: XR KNEE 3V AP/LAT/CLINTON WILFRID, XR PELVIS 1V AP COMPARISON: None FINDINGS: Bilateral knees: Moderate right and mild left medial and lateral joint compartment narrowing with minimal tricompartment spur formation. No fracture or joint effusion. 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 Right hip joint is maintained. No acute fracture. IMPRESSION: 1. Bilateral knee osteoarthrosis, right greater than left 2. Satisfactory appearing left DEVIN Regulatory Law Specialist: [facility] Transcribe Date/Time: May 23 2019 8:01A Dictated by : SHREYL CABRERA MD This examination was interpreted and the report reviewed and electronically signed by: SHERYL CABRERA MD on May 23 2019 8:03AM EST [id number] [facility] XR PELVIS 1V APon 05-23-2019 XR PELVIS 1V AP * * *Final Report* * * DATE OF EXAM: May 23 2019 7:36AM MDO [id number] - XR PELVIS 1V AP / PROCEDURE REASON: multiple diagnoses * * * * Physician Interpretation * * * * PROCEDURE: Bilateral knees and pelvis INDICATION: Pain in both knees and pelvis, unspecified chronicity . Left DEVIN TECHNIQUE: XR KNEE 3V AP/LAT/CLINTON WILFRID, XR PELVIS 1V AP COMPARISON: None FINDINGS: Bilateral knees: Moderate right and mild left medial and lateral joint compartment narrowing with minimal tricompartment spur formation. No fracture or joint effusion. 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 Right hip joint is maintained. No acute fracture. IMPRESSION: 1. Bilateral knee osteoarthrosis, right greater than left 2. Satisfactory appearing left DEVIN Regulatory Law Specialist: [facility] Transcribe Date/Time: May 23 2019 8:01A Dictated by : SHERYL CABRERA MD This examination was interpreted and the report reviewed and electronically signed by: SHERYL CABRERA MD on May 23 2019 8:03AM EST [id number] [facility] Vital Signs Date Time Vital Sign Value Performing Clinician Facility 01-05-2025 20:27-0400 Body temperature 98.4 [degF] Dr. Mary Abernathy MD Work Phone: [facility] 01-05-2025 20:27-0400 Diastolic blood pressure 67 mm[Hg] Dr. Mary Abernathy MD Work Phone: [facility] 01-05-2025 20:27-0400 Heart rate 70 /min Dr. Mary Abernathy MD Work Phone: [facility] 01-05-2025 20:27-0400 Respiratory rate 18 /min Dr. Mary Abernathy MD Work Phone: [facility] 01-05-2025 20:27-0400 SaO2% (BldA) [Mass fraction] 95 % Dr. Mary Abernathy MD Work Phone: [facility] 01-05-2025 20:27-0400 Systolic blood pressure 135 mm[Hg] Dr. Mary Abernathy MD Work Phone: [facility] 01-05-2025 16:35-0400 Body height 180.[address] Mary Abernathy MD Work Phone: [facility] 01-05-2025 16:35-0400 Body mass index (BMI) [Ratio] 39.7 kg/m2 Dr. Mary Abernathy MD Work Phone: [facility] 01-05-2025 16:35-0400 Body weight 129.[address] Mary Abernathy MD Work Phone: [facility] 12-27-2024 16:06-0400 Body temperature 98.06 [degF] DR HERSON HE MD [facility] 12-27-2024 16:06-0400 Diastolic Blood Pressure Non-Invasive 67 mm[Hg] DR HERSON HE MD [facility] 12-27-2024 16:06-0400 Heart rate 62 /min DR HERSON HE MD [facility] 12-27-2024 16:06-0400 Reason For Taking VItal Signs DR HERSON HE MD [facility] 12-27-2024 16:06-0400 Respiratory rate 20 /min DR HERSON HE MD [facility] 12-27-2024 16:06-0400 Systolic Blood Pressure Non-Invasive 104 mm[Hg] DR HERSON HE MD [facility] 12-27-2024 11:55-0400 Body temperature 97.34 [degF] DR HERSON HE MD [facility] 12-27-2024 11:55-0400 Diastolic Blood Pressure Non-Invasive 73 mm[Hg] DR HERSON HE MD [facility] 12-27-2024 11:55-0400 Heart rate 65 /min DR HERSON HE MD [facility] 12-27-2024 11:55-0400 Respiratory rate 18 /min DR HERSON HE MD [facility] 12-27-2024 11:55-0400 Systolic Blood Pressure Non-Invasive 119 mm[Hg] DR HERSON HE MD [facility] 12-27-2024 08:35-0400 Body temperature 97.7 [degF] DR HERSON HE MD [facility] 12-27-2024 08:35-0400 Diastolic Blood Pressure Non-Invasive 66 mm[Hg] DR HERSON HE MD [facility] 12-27-2024 08:35-0400 Heart rate 81 /min DR HERSON HE MD [facility] 12-27-2024 08:35-0400 Respiratory rate 18 /min DR HERSON HE MD [facility] 12-27-2024 08:35-0400 Systolic Blood Pressure Non-Invasive 110 mm[Hg] DR HERSON HE MD [facility] 12-27-2024 04:34-0400 Heart rate 83 /min DR HERSON HE MD [facility] 12-26-2024 23:36-0400 Heart rate 80 /min DR HERSON HE MD [facility] 12-26-2024 10:45-0400 Body temperature 96.08 [degF] DR HERSON HE MD [facility] 12-26-2024 10:45-0400 Heart rate 76 /min DR HERSON HE MD [facility] 12-26-2024 10:26-0400 Body height 180.[address] HERSON HE MD [facility] 12-26-2024 10:26-0400 Body weight 127.[address] HERSON HE MD [facility] 12-26-2024 10:26-0400 Body weight 39.31 kg/m2 DR HERSON HE MD [facility] 12-26-2024 09:49-0400 Heart rate 86 /min DR HERSON HE MD [facility] 12-26-2024 09:35-0400 Heart rate 86 /min DR HERSON HE MD [facility] 12-26-2024 09:02-0400 Body temperature 97.34 [degF] DR HERSON HE MD [facility] 12-26-2024 09:00-0400 Respiratory Rate - Anes 0 br/min DR HERSON HE MD [facility] 12-26-2024 08:55-0400 Respiratory Rate - Anes 10 br/min DR HERSON HE MD [facility] 12-26-2024 08:50-0400 Respiratory Rate - Anes 9 br/min DR HERSON HE MD [facility] 12-26-2024 08:45-0400 Body temperature 96.8 [degF] DR HERSON HE MD [facility] 12-26-2024 08:30-0400 Body temperature 96.8 [degF] DR HERSON HE MD [facility] 12-26-2024 08:15-0400 Body temperature 96.8 [degF] DR HERSON HE MD [facility] 12-26-2024 05:42-0400 Body height 180.[address] HERSON HE MD [facility] 12-26-2024 05:42-0400 Body temperature 97.88 [degF] DR HERSON HE MD [facility] 12-26-2024 05:42-0400 Body weight 127.[address] HERSON HE MD [facility] 12-26-2024 05:42-0400 Heart rate 76 /min DR HERSON HE MD [facility] 12-13-2024 08:46-0400 Body height 180.[address] HERSON HE MD [facility] 12-13-2024 08:46-0400 Body weight 127.[address] HERSON HE MD [facility] 12-13-2024 08:46-0400 Body weight 39.31 kg/m2 DR HERSON HE MD [facility] 11-29-2023 07:26-0400 Body height 180.[address] Mary Abernathy Work Phone: [facility] 11-29-2023 07:26-0400 Body weight 122.[address] Mary Abernathy Work Phone: [facility] 11-29-2023 07:10-0400 Body weight 122.[address] Mary Abernathy Work Phone: [facility] 11-29-2023 07:09-0400 Body mass index (BMI) [Ratio] 37.6 kg/m2 Dr. Mary Abernathy Work Phone: [facility] 11-26-2023 07:40-0400 Body mass index (BMI) [Ratio] 37.6 kg/m2 Dr. Mary Abernathy Work Phone: [facility] 11-19-2023 14:04-0400 Body mass index (BMI) [Ratio] 37.7 kg/m2 Dr. Mary Abernathy Work Phone: [facility] 11-19-2023 14:04-0400 Body weight 122.[address] Mary Abernathy Work Phone: [facility] 11-19-2023 14:04-0400 Diastolic blood pressure 69 mm[Hg] Dr. Mary Abernathy Work Phone: [facility] 11-19-2023 14:04-0400 Heart rate 74 /min Dr. Mary Abernathy Work Phone: [facility] 11-19-2023 14:04-0400 Respiratory rate 16 /min Dr. Mary Abernathy Work Phone: [facility] 11-19-2023 14:04-0400 Systolic blood pressure 150 mm[Hg] Dr. Mary Abernathy Work Phone: [facility] 08-26-2023 09:10-0500 Body mass index (BMI) [Ratio] 37.7 kg/m2 Dr. Mary Abernathy Work Phone: [facility] 08-20-2023 07:28-0500 Body weight 122.[address] Mary Abernathy Work Phone: [facility] 07-14-2022 11:07-0500 Body height 180.[address] Mary Abernathy Work Phone: [facility] Work Phone: 07-14-2022 10:58-0500 Body mass index (BMI) [Ratio] 40.2 kg/m2 Dr. Mary Abernathy Work Phone: [facility] Work Phone: 07-14-2022 10:58-0500 Body temperature 97.9 [degF] Dr. Mary Abernathy Work Phone: [facility] Work Phone: 07-14-2022 10:58-0500 Body weight 130.[address] Mary Abernathy Work Phone: [facility] Work Phone: 07-14-2022 10:58-0500 Diastolic blood pressure 76 mm[Hg] Dr. Mary Abernathy Work Phone: [facility] Work Phone: 07-14-2022 10:58-0500 Heart rate 98 /min Dr. Mary Abernathy Work Phone: [facility] Work Phone: 07-14-2022 10:58-0500 Respiratory rate 16 /min Dr. Mary Abernathy Work Phone: [facility] Work Phone: 07-14-2022 10:58-0500 SaO2% (BldA) [Mass fraction] 96 % Dr. Mary Abernathy Work Phone: [facility] Work Phone: 07-14-2022 10:58-0500 Systolic blood pressure 139 mm[Hg] Dr. Mary Abernathy Work Phone: [facility] Work Phone: 05-22-2022 11:30-0400 Diastolic blood pressure 90 mm[Hg] Dr. Mary Abernathy Work Phone: [facility] Work Phone: 05-22-2022 11:30-0400 Heart rate 77 /min Dr. aMry Abernathy Work Phone: [facility] Work Phone: 05-22-2022 11:30-0400 Respiratory rate 18 /min Dr. Mary Abernathy Work Phone: [facility] Work Phone: 05-22-2022 11:30-0400 SaO2% (BldA) [Mass fraction] 98 % Dr. Mary Abernathy Work Phone: [facility] Work Phone: 05-22-2022 11:30-0400 Systolic blood pressure 186 mm[Hg] Dr. Mary Abernathy Work Phone: [facility] Work Phone: 05-22-2022 10:33-0400 Body height 180.[address] Mary Abernathy Work Phone: [facility] Work Phone: 05-22-2022 10:33-0400 Body mass index (BMI) [Ratio] 39.9 kg/m2 Dr. Mary Abernathy Work Phone: [facility] Work Phone: 05-22-2022 10:33-0400 Body temperature 97.2 [degF] Dr. Mary Abernathy Work Phone: [facility] Work Phone: 05-22-2022 10:33-0400 Body weight 129.[address] Mary Abernathy Work Phone: [facility] Work Phone: 01-24-2022 13:11-0400 Body temperature 98.71 [degF] Bert Downing MD Work Phone: [facility] 01-24-2022 13:11-0400 Body weight 134.72 kg Bert Downing MD Work Phone: [facility] 01-24-2022 13:11-0400 Diastolic blood pressure 72 mm[Hg] Bert Downing MD Work Phone: [facility] 01-24-2022 13:11-0400 Heart rate 78 /min Bert Downing MD Work Phone: [facility] 01-24-2022 13:11-0400 Respiratory rate 16 /min Bert Downing MD Work Phone: [facility] 01-24-2022 13:11-0400 SaO2% (BldA) [Mass fraction] 97 % Bert Downing MD Work Phone: [facility] 01-24-2022 13:11-0400 Systolic blood pressure 132 mm[Hg] Bert Downing MD Work Phone: [facility] 12-01-2021 08:18-0400 Body temperature 98.8 [degF] Dr. Mary Abernathy Work Phone: [facility] Work Phone: 12-01-2021 08:18-0400 Diastolic blood pressure 61 mm[Hg] Dr. Mary Abernathy Work Phone: [facility] Work Phone: 12-01-2021 08:18-0400 Heart rate 80 /min Dr. Mary Abernathy Work Phone: [facility] Work Phone: 12-01-2021 08:18-0400 Respiratory rate 16 /min Dr. Mary Abernathy Work Phone: [facility] Work Phone: 12-01-2021 08:18-0400 SaO2% (BldA) [Mass fraction] 95 % Dr. Mary Abernathy Work Phone: [facility] Work Phone: 12-01-2021 08:18-0400 Systolic blood pressure 122 mm[Hg] Dr. Mary Abernathy Work Phone: [facility] Work Phone: 12-01-2021 07:16-0400 Body height 180.[address] Mary Abernathy Work Phone: [facility] Work Phone: 12-01-2021 07:16-0400 Body mass index (BMI) [Ratio] 39.6 kg/m2 Dr. Mary Abernathy Work Phone: [facility] Work Phone: 12-01-2021 07:16-0400 Body weight [address] Mary Abernathy Work Phone: [facility] Work Phone: Encounters Encounter Date Encounter Type Care Provider Facility Start: 02-08-2025 ambulatory Janey Sanders Facilit y:[facility] Start: 01-25-2025 End: 01-25-[address] Mary Abernathy MD Work Phone: [facility] Work Phone: Start: 01-25-2025 End: 01-25-[address] Janey Sanders MD -Laboratory [facility] Start: 01-25-2025 End: 01-25-2025 ambulatory Janey Sanders Facility:[facility] Start: 01-05-2025 End: 01-05-2025 Emergency department patient visit Dr. Mary Abernathy MD Work Phone: -Emergency Department Work Phone: Start: 01-04-2025 End: 01-04-[address] Mary Abernathy MD Work Phone: [facility] Work Phone: Start: 01-04-2025 End: 01-04-[address] Janey Sanders MD -Laboratory [facility] Start: 01-04-2025 End: 01-04-2025 ambulatory Janey Sanders Facility:[facility] Start: 12-26-2024 End: 12-27-[address] MARY ABERNATHY MD Facility:[facility] Start: 12-26-2024 End: 12-27-[address] HERSON HE MD [facility] Start: 12-13-2024 End: 12-13-[address] HERSON HE MD [facility] Start: 12-13-2024 End: 12-13-[address] HERSON HE MD Facility:[facility] Start: 12-01-2024 End: 12-01-[address] Mary Abernathy MD Work Phone: [facility] Work Phone: Start: 12-01-2024 End: 12-01-[address] Mary Abernathy MD -Ultrasound, [facility] Work Phone: Start: 12-01-2024 End: 12-01-2024 ambulatory Mary Abernathy Facility:[facility] Start: 11-24-2024 End: 11-24-[address] Mary Abernathy MD Work Phone: [facility] Work Phone: Start: 11-24-2024 End: 11-24-2024 Patient encounter procedure Kp James ELECTROCARDIOGRAPH OPERATOR-C -Laboratory Work Phone: Start: 11-24-2024 End: 11-24-2024 ambulatory Kp James Facility:[facility] Start: 11-07-2024 End: 11-07-[address] Mary Abernathy MD Work Phone: [facility] Work Phone: Start: 11-07-2024 End: 11-07-[address] Mary Abernathy MD -Radiology, [place] Work Phone: Start: 11-07-2024 End: 11-07-2024 ambulatory Mary Abernathy Facility:[facility] Start: 10-03-2024 ambulatory Mary Abernathy Facility: [facility] Start: 07-10-2024 End: 07-10-2024 ambulatory Pedro Segura Facility:[facility] Start: 07-10-2024 End: 07-10-2024 ambulatory [facility] Start: 06-23-2024 End: 06-23-2024 ambulatory Kp James Facility:[facility] Start: 06-07-2024 End: 06-07-2024 ambulatory Pedro Segura Facility:[facility] Start: 06-07-2024 End: 06-07-2024 ambulatory [facility] Start: 05-15-2024 End: 05-15-[address] MARY ABERNATHY MD Facility:[facility] Start: 05-03-2024 End: 05-03-2024 ambulatory KP JAMES DIRECTOR OF [employer] Facility:[facility] Start: 05-03-2024 End: 05-03-2024 Patient encounter procedure KP JAMES DIRECTOR OF [employer] [facility] Start: 04-25-2024 ambulatory KP GAUTHIER DIRECTOR OF [employer] Facility:[facility] Start: 04-13-2024 End: 04-13-2024 ambulatory TARIQ MOMIN Facility:[facility] Start: 04-03-2024 End: 04-03-[address] MARY ABERNATHY MD Facility:[facility] Start: 02-08-2024 End: 02-08-2024 ambulatory Mary Abernathy Facility:[facility] Start: 12-23-2023 Non-patient / Non-visit Dr. Winnie Abernathy Work Phone: [facility] Work Phone: Start: 12-21-2023 Non-patient / Non-visit Dr. Winnie Abernathy Work Phone: [facility] [facility] Start: 12-21-2023 End: 12-21-[address] Mary Abernathy Work Phone: [facility] Work Phone: Start: 12-21-2023 End: 12-21-[address] Mary Abernathy Work Phone: [facility]-Cardiovascular Services Work Phone: Start: 11-29-2023 End: 11-29-2023 Admission to same day surgery center Dr. Mary Abernathy Work Phone: [facility]-Clinic Director/Special Procedures Work Phone: Start: 11-29-2023 End: 11-29-[address] Mary Abernathy Work Phone: [facility] Work Phone: Start: 11-19-2023 End: 11-19-[address] Mary Abernathy Work Phone: [facility] Work Phone: Start: 10-19-2023 End: 10-19-[address] Mary Abernathy Work Phone: [facility] Work Phone: Start: 09-04-2023 Telephone encounter Jaylan bowen PA-C Work Phone: [facility] Comment on above: Results Start: 09-03-2023 End: 09-03-2023 ambulatory MARY ABERNATHY Facility:[facility] Start: 08-26-2023 End: 08-26-[address] Mary Abernathy Work Phone: [facility] Work Phone: Start: 04-27-2023 End: 04-27-2023 ambulatory [facility] Work Phone: Start: 04-27-2023 End: 04-27-2023 Patient encounter procedure [facility] Start: 04-09-2023 End: 04-09-2023 ambulatory [facility] Work Phone: Start: 04-09-2023 End: 04-09-2023 Patient encounter procedure [facility] Start: 03-23-2023 End: 03-23-2023 ambulatory [facility] Work Phone: Start: 03-23-2023 End: 03-23-2023 Patient encounter procedure [facility] Work Phone: Start: 07-14-2022 End: 07-14-[address] Mary Abernathy Work Phone: [facility] Start: 07-07-[address] Mary hicks Work Phone: [facility] Start: 06-18-2022 End: 06-18-[address] Mary Abernathy Work Phone: [facility] Start: 05-28-2022 Non-patient / Non-visit Dr. Winnie Abernathy Work Phone: [facility] Start: 05-28-2022 End: 05-28-[address] Mary Abernathy Work Phone: [facility]-Cardiovascular Services Start: 05-22-2022 End: 05-22-2022 Emergency department patient visit Dr. Mary Abernathy Work Phone: [facility]-Emergency Department Start: 05-22-2022 End: 05-22-[address] Mary Abernathy Work Phone: [facility] Start: 05-20-2022 End: 05-20-[address] Mary Abernathy Work Phone: [facility] Work Phone: Start: 05-20-2022 End: 05-20-[address] Mary Abernathy Work Phone[facility] Start: 02-27-2022 End: 02-27-[address] Mary Abernathy Work Phone: [facility] Start: 01-25-2022 Telephone encounter Corrie Hair YAN Work Phone: [facility] Comment on above: Results Start: 01-24-2022 End: 01-24-2022 Patient encounter procedure Bert Downing MD Work Phone: [facility] Comment on above: Cough (Primary Dx); Exposure to confirmed case of COVID-19; Inflamed skin tag Start: 12-19-2021 End: 12-19-[address] Mary Abernathy Work Phone: [facility] Start: 12-15-2021 End: 12-15-[address] Mary Abernathy Work Phone: [facility]-Laboratory Start: 12-15-2021 End: 12-15-[address] Mary Abernathy Work Phone: [facility] Start: 12-01-2021 Non-patient / Non-visit Dr. Winnie Abernathy Work Phone: [facility] Start: 12-01-2021 End: 12-01-2021 Admission to same day surgery center Dr. Mary Abernathy Work Phone: [facility]-Endoscopy Start: 11-27-2021 Non-patient / Non-visit Dr. Winnie Abernathy Work Phone: [facility] Start: 10-08-2021 End: 10-08-[address] Mary Abernathy Work Phone: [facility] Start: 09-01-2021 End: 09-01-[address] Mary Abernathy Work Phone: [facility] Procedures Date Procedure Procedure Detail Performing Clinician Start: 01-05-[address] Mary Abernathy MD Work Phone: Start: 01-05-2025 CT angiography of ch est with contrast Dr. Mary Abernathy MD Work Phone: Start: 01-04-[address] Mary Abernathy MD Work Phone: Comment on above: According to the [facility] Academy of Clinical Biochemistry,the reference interval for Thyroglobulin (TG) should berelated to euthyroid patients and not for patients whounderwent thyroidectomy. TG reference intervals for thesepatients depend on the residual mass of the thyroid tissueleft after surgery. Establishing a post-operative baselineis recommended. The assay limit of quantitation is 0.1ng/mLThyroglobulin measured by Jack Nohemy [employer] Start: 01-04-2025 [address] antibo dy measurement Dr. Mary Abernathy MD Work Phone: Comment on above: Thyroglobulin Antibo dy measured by Jack CoulterMethodologyIt should be noted that the presence of thyroglobulinantibodies may not be pathogenic nor diagnostic, especiallyat very low levels. The assay dial printer has found thatfour percent of individuals without evidence of thyroiddisease or autoimmunity will have positive TgAb levels upto 4 IU/mL. Start: 01-04-2025 Total iron binding c apacity measurement Dr. Mary Abernathy MD Work Phone: Start: 01-04-2025 Vitamin D, 25-hydrox y measurement Dr. Mary Abernathy MD Work Phone: Comment on above: Vitamin D StatusDefi ciency: <20 ng/mL (50nmol/L)Insufficiency: 20-30 ng/mL (50-75 nmol/L)Sufficiency: 30-100 ng/mL (75-250 nmol/L)Toxicity: >100 ng/mL (>250 nmol/L) Start: 12-01-2024 Ultrasound of scrotu m with Doppler and color flow imaging Dr. Mary Abernathy MD Work Phone: Start: 11-07-2024 Plain x-ray of pelvi s and lower extremity Dr. Mary Abernathy MD Work Phone: Start: 11-19-2023 Plain chest X-ray Dr. Judith Abernathy Work Phone: Start: 08-26-2023 X-ray of lumbosacral spine Dr. Mary Abernathy Work Phone: Start: 03-23-2023 Radiologic examination of knee Start: 12-19-2021 End: 12-19-[address] Mary Abernathy Work Phone: Start: 12-19-2021 US scan of bladder Dr. Mary Abernathy Work Phone: Start: 12-01-[address] Mary pedraza Work Phone: Bilateral cataracts (disorder) DR HERSON HE MD Cholecystectomy KP GAUTIHER DIRECTOR OF ACADEMIC SUPPORT-[employer] Colonoscopy DR HERSON Webb MD Inguinal herniorrhaphy KP JAMES DIRECTOR OF [employer]EM[employer]PPORT-[employer] Insertion of hip prosthesis KP JAMES DIRECTOR OF [employer]EM[employer]PPORT-[employer] Comment on above: left Plan of Treatment Date Care Activity Detail Author Start: 01-05-2025 [facility] Start: 11-29-2023 Patient discharge [facility] Start: 10-19-2023 [facility] Work Phone: Start: 08-23-2023 Advance Directive Discussion Advance Directive Discussion [facility] Start: 08-23-2023 Depression Assessment Depression Ass essment [facility] Start: 04-23-2023 Covid-19 Vaccine ( season) Covid-19 Vaccine () [facility] Start: 04-23-2023 Influenza vaccination Influenza Vacc ine (#1) [facility] Start: 01-24-2022 End: 02-07-2022 SARS-CoV-2 (COVID-19) RNA [Presence] in Respiratory specimen by ZOYA with probe detection 2019 CORONAVIRUS Microbiology Routine Cough Exposure to confirmed case of COVID-19 Expected: 01/24/2022, Expires: 02/07/2022 [facility] Work Phone: Comment on above: Expected: 01/24/2022 , Expires: 02/07/2022 Start: 12-01-2021 Colonoscopy w/biopsy single/multiple COLONOSCOPY AND BIOPSY [facility] Work Phone: Start: 12-01-2021 Colsc flx w/rmvl of tumor polyp lesion snare tq COLONOSCOPY W/LESION REMOVAL [facility] Work Phone: Start: 11-07-2021 COVID-19 VACCINE (4 - Booster for Pfizer series) COVID-19 VACCINE (4 - Booster for Pfizer series) [facility] Start: 08-23-2021 ADVANCE DIRECTIVE DISCUSSION ADVANCE DIRECTIVE DISCUSSION [facility] Start: 08-29-2019 Pneumococcal Vaccine : 65+ (2 of 2 - PCV) Pneumococcal Vaccine: 65+ (2 of 2 - PCV) [facility] Start: 2006 PNEUMOCOCCAL: 65+ (1 - PCV) PNEUMOCOCCAL: 65+ (1 - PCV) [facility] Start: 2001 RSV Vaccine (1 - 1-d ose 60+ series) RSV Vaccine (1 - 1-dose 60+ series) [facility] Start: 1991 SHINGRIX VACCINE (1 of 2) LICONA GRIX VACCINE (1 of 2) [facility] Start: 1986 DIABETES SCREEN DIABETES SCREEN [facility] Start: 1986 Diabetes Screening Diabetes Screenin g [facility] Start: 1960 Urine microalbumin profile [facility] Start: 1953 Adult depression screening assessment DEPRESSION SCREENING [facility] Catheterization of l eft [facility] MR Lumbar spine [facility] Patient Education [facility] Work Phone: Patient referral [facility] Work Phone: Procedure [facility] Work Phone: Thyroglobulin antibo dy measurement [facility] Thyroperoxidase Ab [Units/volume] in Serum or Plasma [facility] XR Spine Lumbar and Sacrum Views [facility] Work Phone: [facility] Immunizations Immunization Date Immunization Notes Care Provider [facility] 06-23-2024 influenza virus vacc ine, unspecified formulation DR HERSON HE MD [facility] 06-05-2022 influenza virus vacc ine, unspecified formulation Jaylan Todd PA-C Work Phone: [facility] 07-10-2021 SARS-CoV-2 mRNA (tozinameran) vaccine DR HERSON HE MD [facility] 05-23-2021 influenza virus vacc ine, unspecified formulation DR HERSON HE MD [facility] 10-17-2020 SARS-CoV-2 mRNA (tozinameran) vaccine DR HERSON HE MD [facility] 09-27-2020 SARS-CoV-2 mRNA (tozinameran) vaccine DR HERSON HE MD [facility] Comment on above: Result Comment: 2024: [id number] 06-15-2019 influenza virus vacc ine, unspecified formulation DR HERSON HE MD [facility] 08-29-2018 influenza virus vacc ine, unspecified formulation DR HERSON HE MD [facility] 08-29-2018 pneumococcal polysaccharide vaccine, [address] HERSON HE MD [facility] Payers Date Payer Category Payer Medicare [id number] 2024 Self-pay [id number] 2020 Unknown [id number] 2020 Unknown [id number] 2019 Unknown [employer] SUPPLEMENT [id number] 2019-Present [phone] [address] [place] [address] Indemnity [id number] 2006 Medicare [id number] 2006 Medicare MEDICARE MEDICAR E A AND B [id number] 2006-Present [phone] [address] [address] [place] [address] Medicare [id number] 2006 Medicare [id number] [id number] [id number] 1941 Unknown [id number] 2.16.840.1.458834.3.579.2.627 1941 Unknown [id number] 2.16.840.1.874333.3.579.2.627 1941 Unknown [id number] 2.16.840.1.994091.3.579.2.627 1941 Unknown [id number] 2.16.840.1.286102.3.579.2.627 1941 Unknown [id number] 2.16.840.1.943939.3.579.2.627 1941 Unknown [id number] 2.16.840.1.609182.3.579.2.627 Unknown [id number] Unknown [id number] 2.16.840.1.081775.3.579.2.462 Unknown [id number] 2.16.840.1.093571.3.579.2.462 Unknown [id number] 2.16.840.1.761018.3.579.2.462 Unknown [id number] 2.16.840.1.816929.3.579.2.462 Unknown [id number] 2.16.840.1.882690.3.579.2.462 Unknown [id number] 2.16.840.1.033343.3.579.2.462 Unknown [id number] 2.16.840.1.433697.3.579.2.462 Unknown [id number] 2.16.840.1.232695.3.579.2.462 Unknown [id number] 2.16.840.1.042105.3.579.2.462 Unknown [id number] 2.16.840.1.117337.3.579.2.462 Unknown [id number] 2.16.840.1.134776.3.579.2.462 Unknown [id number] 2.16.840.1.037902.3.579.2.462 Unknown [id number] 2.16.840.1.685651.3.579.2.462 Unknown [id number] 2.16.840.1.477872.3.579.2.462 Unknown [id number] 2.16.840.1.010770.3.579.2.462 Social History Date Type Detail Facility Start: 11-26-2021 End: 11-29-2023 Tobacco smoking status NHIS Unknown if ever smoked [facility] Start: 1940 Sex Assigned At Male [facility] Start: 01-24-2022 End: 01-05-2025 Tobacco smoking status NHIS Never smoked tobacco [facility] Work Phone: Start: 01-24-2022 End: 09-03-2023 Tobacco use and exposure Smokeless tobacco non-user [facility] Work Phone: Start: 1940 Sex Assigned At Not on file [facility] Start: 07-31-2020 End: 09-03-2023 History of Social function [facility] Start: 07-31-2020 End: 09-03-2023 Tobacco use panel [facility] National Score (1-10 0), lower number is lower risk Not on file [facility] Start: 11-16-2024 End: 12-04-2024 Sex Male (finding) [facility] Status Date Assessment Result [facility]-27[facility]24 [facility] Functional Status Non-Slip footw ear, supervised while toileting, Room check performed [facility] 12-27-2024 Functional Status Leticia Sanders [facility] 12-27-2024 Functional Status Leticia Sanders [facility] 12-27-2024 Functional Status eLticia Sanders [facility] 12-26-2024 Functional Status Leticia Sanders [facility] 12-26-2024 Functional Status Min A [facility]icia [facility] 12-26-2024 Functional Status Single level home [facility] 12-26-2024 Functional Status Compression ga rments, ice on, tension pillow in place [facility] 12-26-2024 Functional Status Leticia Sanders [facility] 12-26-2024 Functional Status Maintained [facility] 12-13-2024 Functional Status Sensory Deficits None [facility] Mental Status Date Assessment Result Facility 12-27-2024 Mental Status Oriented x 4 [facility] 12-26-2024 Mental Status [facility] 12-26-2024 Mental Status [facility] 05-22-2022 Cognitive function Level Of Cons ciousness Awake;Alert;Appropriate [facility] Work Phone: 12-01-2021 Cognitive function Voice/Name [facility] Work Phone: Clinical Notes 01-24-2022 to 01-05-2025 Note Date & Type Note Facility 01-05-2025 Radiology Diagnostic study note [facility] Imaging Services [address] [place] [address] CTA Chest W/WO Contrast MR#: [id number] Acct: [id number] Name: LUC GANNON Rep #: [id number] : 1940 M 84 From: Shahnaz Copeland MD PCP: Dr. Janey Sanders MD Status: RE G ER Study:CTA Chest W/WO Contrast Date of Exam: 01/05/25 Exam# [id number] Ordering Dr: Bri Carbajal DO PROCEDURE: CTA CHEST W/WO CONTRAST 01/05/2025 REASON FOR EXAM: SOB, RECENT SURGERY R/O PE TECHNIQUE: CTA axial imaging of the chest with intravenous contrast. Multiplanar and multisequence images were obtained. PATIENT PREPARATION: Per protocol One or more dose reduction techniques were used (e.g., Automated exposure control, adjustment of the mA and/or kV according to patient size, use of iterative reconstruction technique). CONTRAST: Omnipaque 350 VOLUME: 100 mL Not Provided Gauge IV COMPARISON: None FINDINGS: Hardware: None Lymph nodes: Benign granulomatous calcifications. Heart: Normal cardiac size. Mild significant coronary artery calcifications. No pericardial effusion. Thoracic Aorta: Mild atherosclerotic calcification of the thoracic aorta. Normal thoracic aorta caliber Pulmonary Vessels: No large central pulmonary emboli are identified. Contrast timing is suboptimal for evaluation of more distal branches. Most Proximal Level of Embolus (if embolus present): None Lungs and Airways: Central airways are patent without endobronchial lesions. Patchy opacities in the lung base, compatible with scarring and atelectasis. No focal consolidation. No pneumothorax. No pleuraleffusion. A few scattered calcified granulomas. Upper Abdomen: Visualized portions of the upper abdominal viscera are unremarkable. Bones: Degenerative changes of the thoracic spine. Chest wall or mediastinum. Heterogeneously enlarged multinodular goiter. Chest wall is otherwise unremarkable. CT/CTA Chest W/WO Contrast IMPRESSION: No evidence of pulmonary embolism or acute findings in the thorax. Reading [facility] CC: Dr. Janey Sanders MD; Dr. Modesto Carbajal DO ~ Regulatory Law Specialist: Signed [facility] 12-27-2024 Note Discharge Instructions Thank you for allowing [facility] to assist you with your healthcare needs. The following is important discharge information regarding your hospital visit. Your Care Team MD [facility] Your Diagnosis Diabetes Hyperkalemia Osteoarthritis S/P total right hip arthroplasty What to do next Scheduled Follow-Up Appointments Appointment Type When With Where Contact Information StatusENDO OV 03/08/2025 10:45 AM EDT DANIEL ANDRADE MD [facility] [address] [place] [address]- [phone] Confirmed Follow Up Appointments Follow Up with [facility] When:12/28/2024 10:15 AM EDT Where:[address] [place] [address] [phone] Additional Information: This is your first physical therapy appointment. Follow-up as scheduled. Follow Up with JANEY SANDERS MD When:01/04/2025 11:10 AM EDT Where:[address] [place] [address] [phone] Additional Information: This is your post-hospital follow-up appointment to recheck your labwork. Follow Up with YOSEF SALMON PA-C, Orthopedic When:01/08/2025 01:15 PM EDT Where:[facility] [address] [place] [address]- Additional Information: This is your post-op appointment. Follow-up as scheduled. The Following Treatments Have Been Ordered for You Discharge Labs Discharge Outpatient Labwork - Ordered -- BMP, recheck renal fxn and potassium level, follow-up within: 2-4 days, Results Notify to: JANEY SANDERS MD, 12/27/24 14:34:00 EDT Discharge Radiology No qualifying data available. Other Therapies No qualifying data available. Post Acute Orders No qualifying data available. Allergies penicillin Rash Medications Please ask your primary doctor or pharmacist before taking any other medication not listed, including over the counter drugs, herbal medications, vitamins and or supplements as they may interact with your home medications. What How Much When Why Instructions Last Dose New aspirin 81 Milligram by mouth Twice daily with meals Duration: 30 Days Take 81 mg aspirin twice daily with food for 4 weeks postoperatively for DVT prophylaxis. today @ 0830 New docusate-senna (Senokot S 50 mg-8.6 mg oral tablet) 2 tab(s) by mouth Two (2) times a day Duration: 3 Days Take until first bowel movement, then as needed Pickup at [facility]/pharmacy #[id number] today @ 0830 New famotidine (Pepcid 20 mg oral tablet) 1 tab(s) by mouth Once a day Pickup at [facility]/pharmacy #[id number] today @ 0830 New meloxicam (Mobic 7.5 mg oral tablet) 1 tab(s) by mouth Twice daily with meals Do not take any other nonsteroidal anti-inflammatories while on meloxicam/ Mobic. Pickup at [facility]/pharmacy #[id number] Changed acetaminophen (Tylenol) 1,000 Milligram by mouth Three (3) times a day not to exceed 3000 mg/ day today @ 3p Changed oxyCODONE (oxyCODONE 5 mg oral tablet ( IMMEDIATE release )) See instructions S/P total right hip arthroplasty 1-2 tab(s) Oral q4h, As needed for as needed for pain Pickup at [facility]/pharmacy #[id number] today @ 5a Unchanged cholecalciferol (Vitamin D3 25 mcg (1000 intl units) oral capsule) 1 cap by mouth Once a day Unchanged furosemide (furosemide 20 mg oral tablet) 1 tab(s) by mouth Once a day today @ 0830 Unchanged lisinopril (lisinopril 20 mg oral tablet) 1 tab(s) by mouth Once a day today @ 0830 Unchanged metFORMIN (MetFORMIN (Eqv-Glucophage XR) 500 mg oral tablet, EXTENDED RELEASE) 1 tab(s) by mouth Once a day today @ 0830 Unchanged metoprolol (Metoprolol Succinate ER 50 mg oral TABLET extended release) 1 tab(s) by mouth Once a day today @ 0830 Unchanged rosuvastatin (rosuvastatin 20 mg oral tablet) 1 tab(s) by mouth Once a day yesterday @9p Pharmacy Information [facility]/pharmacy #[id number]: [address] [place], [place] [id number] [phone] Please take this list to your next doctor s visit. Bring all medications you take, including over the counter medications, herbals and other supplements with you to your doctor s visit. Patients and families are reminded to discard old lists and to update any records with all medication providers or retail pharmacies. Medication Leaflets oxycodone (ox i KOE done) Oxaydo, OxyCONTIN, Roxicodone, RoxyBond, Xtampza ER What is the most important information I should know about oxycodone? MISUSE OF OPIOID MEDICINE CAN CAUSE ADDICTION, OVERDOSE, OR . Fatal side effects may occur if you also drink alcohol or use other drugs that cause drowsiness or slow breathing. Using opioid medicine during may cause life-threatening withdrawal symptoms in the . What is oxycodone? Oxycodone is an opioid pain medication used to treat moderate to severe pain. Oxycodone is usually given after other treatments did not work or were not tolerated. Extended-release oxycodone is for [id number]-xmy-wlphf treatment of severe and chronic pain that requires longer treatment. This medicine is not for use on an as-needed basis. Oxycodone may also be used for purposes not listed in this medication guide. What should I discuss with my healthcare provider before taking oxycodone? You should not use oxycodone if you are allergic to it, or if you have severe asthma, breathing problems or a stomach or bowel obstruction (including paralytic ileus). Tell your doctor if you have ever had: other breathing problems, sleep apnea (breathing that stops during sleep); a head injury, brain tumor, high pressure inside the skull, or seizures, drug or alcohol addiction, or mental illness; if you have used an MAO inhibitor in the past 14 days, such as isocarboxazid, linezolid, methylene blue injection, phenelzine, or tranylcypromine; urination problems, problems with your gallbladder, pancreas, thyroid, or adrenal gland; or liver or kidney disease. Most forms of oxycodone are not approved for use in people under 18 years old. The extended-release tablets should not be given to a child younger than 11 years old. Tell your doctor if you also use stimulant medicine, opioid medicine, herbal products, or medicine for depression, mental illness, Parkinson's disease, migraine headaches, serious infections, or prevention of nausea and vomiting. An interaction with oxycodone could cause a serious condition called serotonin syndrome. May harm an unborn baby. Tell your doctor if you are or plan to become . If you use oxycodone during , your baby could be born with life-threatening withdrawal symptoms, and may need medical treatment for several weeks. Do not breastfeed. Oxycodone in breast milk can cause life-threatening side effects in a nursing baby. Long-term oxycodone may affect fertility in men or women. could be harder to achieve while either parent is using this medicine. How should I take oxycodone? Follow the directions on your prescription label and read all medication guides or instruction sheets. Never use oxycodone in larger amounts, or for longer than prescribed. Tell your doctor if you feel an increased urge to use more of this medicine. Never share opioid medicine with another person, especially someone with a history of drug addiction. MISUSE CAN CAUSE ADDICTION, OVERDOSE, OR . Keep the medicine where others cannot get to it. Selling or giving away this medicine is against the law. Never crush a pill or use the liquid to inhale the mixture or inject it into your vein. This could result in . Your dose needs may change if you switch to a different brand, strength, or form of this medicine. Avoid medication errors by using exactly as directed on the label, or as prescribed by your doctor. Stop taking all other ajljde-sdr-wuhie opioid pain medicines when you start taking extended-release oxycodone. Swallow the extended-release forms whole to avoid exposure to a potentially fatal overdose. Do not crush, chew, break, open, or dissolve. Take the extended-release capsules with food. Read and carefully follow the instructions for use on how to prepare and take this medicine if you cannot swallow extended release capsules whole or you use a feeding tube. Ask your doctor or pharmacist if you don't understand these instructions. Measure liquid medicine with the supplied measuring device (not a kitchen spoon). You may be given other medications to help prevent or treat certain side effects. You may have withdrawal symptoms if you stop using oxycodone suddenly. Ask your doctor before stopping the medicine. Store at room temperature away from moisture and heat. Keep your medicine in a place where no one can use it improperly. Do not keep leftover medicine. Just one dose can cause in someone using it accidentally or improperly. Ask your pharmacist about a drug take-back program, or flush the unused medicine down the toilet. What happens if I miss a dose? Since oxycodone is used for pain, you are not likely to miss a dose. Skip any missed dose if it is almost time for your next dose. Do not use two doses at one time. What happens if I overdose? Seek emergency medical attention or call the Poison Help line at . An overdose can be fatal, especially in a child or person using opioid medicine without a prescription. Your doctor may recommend you get naloxone (a medicine to reverse an opioid overdose) and keep it with you at all times. A person caring for you can give the naloxone if you stop breathing or don't wake up. Your caregiver must still get emergency medical help and may need to perform CPR (cardiopulmonary resuscitation) on you while waiting for help to arrive. Anyone can buy naloxone from a pharmacy or local health department. Make sure any person caring for you knows where you keep naloxone and how to use it. What should I avoid while taking oxycodone? Do not drink alcohol or any products that contain alcohol. Dangerous side effects or could occur. Avoid driving or hazardous activity until you know how this medicine will affect you. Dizziness or drowsiness can causing falls, accidents, or severe injuries. Also avoid getting up too fast from a sitting or lying position, or you may feel dizzy. What are the possible side effects of oxycodone? Get emergency medical help if you have signs of an allergic reaction: hives, difficult breathing, swelling of your face, lips, tongue, or throat. Opioid medicine can slow or stop your breathing, and may occur, especially if you drink alcohol or use other drugs that cause drowsiness or slow breathing. A person caring for you should give naloxone and/or seek emergency medical attention if you have slow breathing with long pauses, blue colored lips, or if you are hard to wake up. Call your doctor at once if you have: slow heart rate, weak pulse, fainting, slow breathing (breathing may stop); chest pain, fast or pounding heartbeats; a seizure, extreme drowsiness; or decreased adrenal gland hormones--nausea, vomiting, stomach pain, loss of appetite, feeling tired or light-headed, muscle or joint pain, skin discoloration, craving salty foods. Serious breathing problems may be more likely in older adults and in those who are debilitated or have wasting syndrome or chronic breathing disorders. Seek medical attention right away if you have symptoms of serotonin syndrome, such as: agitation, hallucinations, fever, sweating, shivering, fast heart rate, muscle stiffness, twitching, loss of coordination, nausea, vomiting, or diarrhea. Common side effects may include: sleep problems (insomnia), itching; drowsiness, headache, dizziness, tiredness; or constipation, stomach pain, nausea, vomiting. This is not a complete list of side effects and others may occur. Call your doctor for medical advice about side effects. You may report side effects to FDA at 3-971-VTT-4531. What other drugs will affect oxycodone? You may have a fatal oxycodone overdose if you start or stop using certain medicines. Tell your doctor about all your medications. Tell your doctor about all your medications especially if you use medicine to treat HIV, antibiotic, antifungal medication, or seizure medication. Many other drugs can be dangerous when used with opioid medicine. Tell your doctor if you also use: medicine for allergies, asthma, blood pressure, motion sickness, irritable bowel, or overactive bladder; other opioid medicines, a benzodiazepine sedative like Valium, Klonopin, or Xanax; sleep medicine, muscle relaxers, or other drugs that make you drowsy; or drugs that affect serotonin, such as antidepressants, stimulants, or medicine for migraines or Parkinson's disease. This list is not complete and many other drugs may affect oxycodone. This includes prescription and ncne-sgw-tprmcxj medicines, vitamins, and herbal products. Not all possible drug interactions are listed here. Where can I get more information? Your doctor or pharmacist can provide more information about oxycodone. Remember, keep this and all other medicines out of the reach of children, never share your medicines with others, and use this medication only for the indication prescribed. Every effort has been made to ensure that the information provided by [employer]. ('[employer]') is accurate, up-to-date, and complete, but no guarantee is made to that effect. Drug information contained herein may be time sensitive. [employer] information has been compiled for use by healthcare practitioners and consumers in the [place] and therefore [employer] does not warrant that uses outside of the [place] are appropriate, unless specifically indicated otherwise. [employer] drug information does not endorse drugs, diagnose patients or recommend therapy. [employer] drug information is an informational resource designed to assist licensed healthcare practitioners in caring for their patients and/or to serve consumers viewing this service as a supplement to, and not a substitute for, the expertise, skill, knowledge and judgment of healthcare practitioners. The absence of a warning for a given drug or drug combination in no way should be construed to indicate that the drug or drug combination is safe, effective or appropriate for any given patient. [employer] does not assume any responsibility for any aspect of healthcare administered with the aid of information [employer] provides. The information contained herein is not intended to cover all possible uses, directions, precautions, warnings, drug interactions, allergic reactions, or adverse effects. If you have questions about the drugs you are taking, check with your doctor, nurse or pharmacist. Copyright 0146-3369 [employer]. Version: 17.. Revision Date: 09/14/2023. Education Materials [facility] Post-operative Instructions PLEASE FOLLOW [facility] POST-OP INSTRUCTIONS GIVEN WATCH FOR SIGNS OF INFECTION: call the office ([phone]) if experencing any of the following: (Usually appears 36-48 hours after surgery) Increased temperature (101 degrees Fahrenheit or higher) Redness or swelling Increased uncontrolled pain Foul odor or drainage Calf discomfort Significant swelling Or if having any chest pain, shortness of breath, or difficulty breathing or swallowing call the office or go the nearest Emergency Room. If you have any questions, please call your doctor at the number listed on your follow up instructions. Form: 338A ([id number]) R: 12/27 Additional Information VACCINATE! IT SAVES LIVES! Members of the community who have not yet received the COVID-19 vaccine and would like to receive it can visit one of [facility] vaccine clinics. There are many vaccine clinic locations within the [facility]. For locations and available times, please visit https://gettheshot.coronavirus.o vao.gov/. It is important to note that some COVID mobile vaccine clinics are held outdoors and may be canceled in rainy or stormy conditions. To learn more about pediatric vaccinations (ages 5-11), we invite you to visit the [employer] webpage. https://www.[employer].org/p ages/7764-Cxxlz-Vtbjftfojdh-Freq qnzfmp-Eoiwp-Ikhtpavfv.html To learn more about the COVID-19 vaccine, we invite you to visit the CDC website for a list of frequently asked questions.https://www.cdc.gov/co ronavirus/2019-ncov/vaccines/faq .html [employer] Patient Portal Access Instructions: Stay connected with your healthcare team and access your personal medical information anytime with the [employer] Patient Portal. Please follow the directions below to create your [employer] account: 1.Access the email account you provided upon registration to the hospital/physician office.2.Look for an invitation email from [facility].3.Open the email and access the invitation link: Accept Invitation to [employer].4.Fill in the required abdul to create your account. To access your account, visit [facility] [employer]. Click the blue button labeled Access Patient Portal and then log in with the username and password that you created in the steps above. You will be able to view your test results, lab results, a summary of your visits, upcoming appointments and more. There is also a convenient messaging option where you can send secure messages to your provider. In addition, you will have the ability to download any documents or summaries to your computer and/or send the information securely to a physician. Remember that your healthcare information is confidential, so carefully consider who you will allow to register on the [facility] for access to your information. You can also access the [facility] Patient Portal on the [facility]ina. Simply click on Patient Portal and then log into your account. If you would like to receive a full copy of your medical records, please contact the [facility] Medical Records Department by calling [phone], Wednesday through Wednesday between 8 a.m. and 4:30 p.m. HOW TO SAFELY DISPOSE OF PRESCRIPTION MEDICATIONS Please use one of the following methods to safely dispose of your unused medications. 1.Use a drug disposal kit: the drug disposal pouch allows you to safely discard your old and unused drugs. Ask your nurse to give you one when you are discharged.2.Visit a local take-back location: Many local pharmacies and police departments have programs that collect old and unwanted prescription drugs. Call your local pharmacy or go to http://Dot.[employer]/5C9Sp3l to find one close to you.3.Make use of household items: Use cat litter or old coffee grounds to dispose medications if other options are not available. Mix your drugs with these household products, seal them in an airtight container and throw it into the garbage. Call [facility]: [phone] to be sure your drugs can be disposed of in this way. Some medicines may require a different approach.4.Never flush your medications down the toilet. IF YOU HAVE BEEN PRESCRIBED AN OPIOID FOR PAIN If you have been prescribed an opioid (such as hydrocodone, oxycodone or morphine), it is critical to understand the possible side effects and risks of opioid pain medications. Even when taken as directed, opioids can have several side effects including: Tolerance, meaning you might need to take more of a medication for the same pain relief. Nausea, vomiting and/or constipation. Sleepiness, dizziness, dry mouth, confusion, depression or itching. Physical dependence, meaning you have withdrawal symptoms when a medication is stopped, can develop within a few days. KNOW YOUR RESPONSIBILITIES It is important to know exactly how much and how often to take the opioid pain medications you are prescribed. Never take opioids in higher amounts or more often than prescribed. Do not combine opioids with alcohol or other drugs that cause drowsiness, such as benzodiazepines, also known as benzos, including diazepam and alprazolam, muscle relaxants or sleep aids. Never sell or share prescription opioids. This is illegal. Store opioids in a secure place and out of reach of others (including children, family, friends and visitors). The last page of this document has been signed and retained as a CHART COPY. Signatures Patient Education Materials [facility] Post-op Instruction 03/2017 ([id number]) Medication Leaflets oxycodone My discharge plan and instructions have been reviewed and explained to me and I,LUC GANNON understand my current condition and have read and understand these discharge instructions. I have received a written copy of the plan/instructions. If I have questions, I am aware that I should contact my doctor. 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 Patient denies any chest pain, shortness of breath, dizziness, lightheadedness, nausea or vomiting, or calf pain. No adverse overnight events. Pain has been controlled on medications. Patient states at rest he is doing very well. Pain is primarily when he is up and moving. Preoperatively patient instructed orthopedics that he gets up every hour and a half during the day and nighttime. His PCP has recently retired. We did temporarily start him on tamsulosin and gave him a 3-week supply of medication. He is aware that he needs to contact his PCP for continued management of this problem. On imaging studies it was found he had an enlarged prostate that he should be following with his PCP. He voiced understanding. Objective Vitals and Measurements T: 36.6 C (Oral) TMIN: 35.6 C (Axillary) TMAX: 36.8 C (Oral) HR: 83 RR: 18 BP: 115/64 SpO2: 95% HT: 180.3 cm WT: 127.8 kg BMI: 39.31 Intake and Output 7AM Yesterday to 7AM Today Intake and Output (Last 24 hours) Intake Administration Information 2104.58 Supplement Intake 360.00 Output Urine Voided 275.00 Intra-Op EBL 200.00 Urine Count 2.00 Total Summary Total Intake 2464.58 Total Output 475.00 Fluid Balance 1988.58 Physical Exam Vital signs stable, afebrile SCD's and GAUDENCIO Hose in place bilaterally Patient is able to plantarflex and dorsiflex actively Sensation is intact to saphenous, sural, superficial and deep peroneal, and tibial distribution Dressing is clean dry and intact Right thigh is soft and supple Negative signs and symptoms of DVT, negative Homans bilaterally Weight Dosing Weight: 127.8 kg (12/26/24) Dosing Weight: 127.8 kg (12/26/24) Medications Medications (26) Active Scheduled: (16) acetaminophen 500 mg Tablet 1,000 mg 2 tab(s), Oral, q8h aspirin 81 mg EC 81 mg 1 tab(s), Oral, BIDM atorvastatin 40 mg tablet 40 mg 1 tab(s), Oral, qHS bisacodyl 5 mg EC tablet 10 mg 2 tab(s), Oral, Once docusate sodium 100 mg Capsule 100 mg 1 cap(s), Oral, BID docusate-senna (Senokot S) 50 mg-8.6 mg Tablet 2 tab(s), Oral, BID famotidine 20 mg tablet 20 mg 1 tab(s), Oral, qDay furosemide 20 mg tablet 20 mg 1 tab(s), Oral, qDay insulin lispro 100 units/mL Soln COA (3 mL) Give 0-5 units/dose, Subcutaneous, TIDAC lisinopril 20 mg tablet 20 mg 1 tab(s), Oral, qDay magnesium hydroxide 8% Suspension 30 mL UD 30 mL, Oral, Daily meloxicam 7.5 mg tablet 7.5 mg 1 tab(s), Oral, BIDM metformin 500 mg ER tablet 500 mg 1 tab(s), Oral, qDay metoprolol succinate 50 mg ER tablet 50 mg 1 tab(s), Oral, qDay multivitamin (Myadec) with minerals Therapeutic Multiple Vitamins with Minerals Tablet 1 tab(s), Oral, qDayM sodium zirconium cyclosilicate 10 g REC packet 10 gram(s) 1 packet(s), Oral, Once Continuous: (0) PRN: (10) acetaminophen 325 mg Tablet 650 mg 2 tab(s), Oral, q4h diphenhydramine 25 mg tablet 25 mg 1 tab(s), Oral, q6h diphenhyDRAMINE 50 mg/mL (1 mL) INJ 25 mg 0.5 mL, IV Push, q6h ketorolac 30 mg/mL (1 mL) vial 15 mg 0.5 mL, IV Push, q6h morphine 2 mg/mL 1 mL syringe 2 mg 1 mL, IV Push, q1h ondansetron 2 mg/ 1 mL 2 mL INJ 4 mg 2 mL, IV Push, q8h oxycodone 5 mg tablet (immediate release) 5 mg 1 tab(s), Oral, q4h oxycodone 5 mg tablet (immediate release) 10 mg 2 tab(s), Oral, q4h prochlorperazine 10 mg/2 mL vial 5 mg 1 mL, IV Push, q6h sodium biphosphate-sodium phosphate 19 gm-7 gm Enema 133 mL, Rectal, qDay Lab Results 12/27 05:28 WBC: 14.7 H Hgb: 12.3 L Hct: 36.4 L Platelet: 177 Neutrophil %: 89.8 H Glucose Level: 214 H Sodium Level: 136 Potassium Level: 5.6 H BUN: 51 H Creatinine Lvl (s): 1.11 EKG No qualifying data available. Assessment/Plan 1. Status post direct anterior right total hip arthroplasty postop day #1 2. Continue pain medications: Tylenol, meloxicam, oxycodone. Do not take any other nonsteroidal anti-inflammatories while on meloxicam/Mobic. 3. DVT prophylaxis: Take 81 mg aspirin twice daily with food for 4 weeks postoperatively for DVT prophylaxis. Patient denies past history of DVT or pulmonary embolism. Patient will also continue with the GAUDENCIO hose for 2 weeks postoperatively for swelling control. 4. Physical therapy: Weightbearing as tolerated with walker. Continue anterior hip precautions 5. H & H: 12.3/36.4, asymptomatic. Postoperative drop in hemoglobin from surgery without intraoperative complications. At this time there is no need for treatment. 6. Reactive Leukocytosis: currently 14.7, afebrile. Patient did receive decadron intra-operatively. No clinical signs of infection. 7. Hyperkalemia: Case was discussed with medicine and appreciate recommendations. Plan will be to retest potassium this afternoon for possible discharge. 8. Encouraged incentive spirometry 9. Continue postoperative medical management per medicine 10. Postoperative constipation: Discussed with the patient to continue stool softener until first bowel movement. After first bowel movement patient can then take as needed. They were also instructed that if they are not able to have a bowel movement within 3 days they are to contact our office for change of medication. Patient voiced understanding. 11. Disposition: Plan will be for possible discharge home today as long as patient is cleared medically with repeat potassium this afternoon. As long as patient is medically stable, tolerates therapy, and pain is well-controlled plan will be for discharge home. Patient wanted his narcotic medication sent to [facility] in [place]. We have had significant difficulties with sending postoperative narcotic medications to this facility. He then decided to send it to [facility]. Patient will follow-up per postoperative instructions. He has outpatient physical therapy established. Upon discharge he will contact our office with any concerns or questions. Again discharge today will be based on medicine as long as the potassium improves with treatment. I also advised the patient once he removes the Mepilex dressing he is to use a 4 x 4 sterile gauze pad and change daily to protect the proximal incision from his skin pannus. We discussed the potential for incision breakdown if he does not do this. He voiced understanding. This dictation was created using voice recognition software. Phonetic and/or grammatical errors may exist. Digitally Signed by YOSEF SALMON PA-C on 12/27/2024 08:[address] [facility] 12-27-2024 Hospital Discharge instructions Patient Education 12/27/2024 08:05:57 5 - [facility] Post-op Instruction 03/2017 (81238) [facility] Post-operative Instructions PLEASE FOLLOW [facility] POST-OP INSTRUCTIONS GIVEN WATCH FOR SIGNS OF INFECTION: call the office ([phone]) if experencing any of the following: (Usually appears 36-48 hours after surgery) Increased temperature (101 degrees Fahrenheit or higher) Redness or swelling Increased uncontrolled pain Foul odor or drainage Calf discomfort Significant swelling Or if having any chest pain, shortness of breath, or difficulty breathing or swallowing call the office or go the nearest Emergency Room. If you have any questions, please call your doctor at the number listed on your follow up instructions. Form: 338A (74519) R: 12/27 Follow Up Care 12/11/2024 07:55:03 With:[facility] Address: [address] [place], [place] [address] [address] [phone] When:12/28/2024 10:15:00 Comments:This is your first physical therapy appointment. Follow-up as scheduled. With:JANEY SANDERS MD Address: [address] [place], [place] [address]town . [address] [place] [address] [phone] When:01/04/2025 11:10:00 Comments:This is your post-hospital follow-up appointment to recheck your labwork. With:YOSEF SALMON PA-C, Orthopedic Address: [facility] [address] [place], [place] [address] [address]- When:01/08/2025 13:15:00 Comments:This is your post-op appointment. Follow-up as scheduled. [facility] 12-27-2024 Pastoral care Progress note Pastoral Care Note Entered On: 12/27/2024 9:55 EDT Performed On: 12/27/2024 9:53 EDT by Yosef Pryor Pastoral Care Type of Pastoral Visit : Initial visit Spiritual Care Visit Initiated by : [employer] Worker Spiritual Care Reason for Visit : General Spiritual Assessment : Faithful, Coping well with illness, Positive Image of God, Spiritually Strong Spiritual Care Emotional Assessment : Accepting of Situation, Thoughtful/Reflective, Has Support Network Spiritual Care Intervention : Active listening, Facilitate Life Review, Prayer with Patient/Family, Conversation Spiritual Outcomes : Expresses Gratitude, Expresses Farrah, Set realistic goals Spiritual Plan of Care : No Further Action Pastoral Care Comments : patient is welcoming and expresses his personal farrah in God and 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 Patient denies any chest pain, shortness of breath, dizziness, lightheadedness, nausea or vomiting, or calf pain. No adverse overnight events. Pain has been controlled on medications. Patient states at rest he is doing very well. Pain is primarily when he is up and moving. Preoperatively patient instructed orthopedics that he gets up every hour and a half during the day and nighttime. His PCP has recently retired. We did temporarily start him on tamsulosin and gave him a 3-week supply of medication. He is aware that he needs to contact his PCP for continued management of this problem. On imaging studies it was found he had an enlarged prostate that he should be following with his PCP. He voiced understanding. Objective Vitals and Measurements T: 36.6 C (Oral) TMIN: 35.6 C (Axillary) TMAX: 36.8 C (Oral) HR: 83 RR: 18 BP: 115/64 SpO2: 95% HT: 180.3 cm WT: 127.8 kg BMI: 39.31 Intake and Output 7AM Yesterday to 7AM Today Intake and Output (Last 24 hours) Intake Administration Information 2103.58 Supplement Intake 360.00 Output Urine Voided 275.00 Intra-Op EBL 200.00 Urine Count 2.00 Total Summary Total Intake 2464.58 Total Output 475.00 Fluid Balance Physical Exam Vital signs stable, afebrile SCD's and GAUDENCIO Hose in place bilaterally Patient is able to plantarflex and dorsiflex actively Sensation is intact to saphenous, sural, superficial and deep peroneal, and tibial distribution Dressing is clean dry and intact Right thigh is soft and supple Negative signs and symptoms of DVT, negative Homans bilaterally Weight Dosing Weight: 127.8 kg (12/26/24) Dosing Weight: 127.8 kg (12/26/24) Medications Medications (26) Active Scheduled: (16) acetaminophen 500 mg Tablet 1,000 mg 2 tab(s), Oral, q8h aspirin 81 mg EC 81 mg 1 tab(s), Oral, BIDM atorvastatin 40 mg tablet 40 mg 1 tab(s), Oral, qHS bisacodyl 5 mg EC tablet 10 mg 2 tab(s), Oral, Once docusate sodium 100 mg Capsule 100 mg 1 cap(s), Oral, BID docusate-senna (Senokot S) 50 mg-8.6 mg Tablet 2 tab(s), Oral, BID famotidine 20 mg tablet 20 mg 1 tab(s), Oral, qDay furosemide 20 mg tablet 20 mg 1 tab(s), Oral, qDay insulin lispro 100 units/mL Soln COA (3 mL) Give 0-5 units/dose, Subcutaneous, TIDAC lisinopril 20 mg tablet 20 mg 1 tab(s), Oral, qDay magnesium hydroxide 8% Suspension 30 mL UD 30 mL, Oral, Daily meloxicam 7.5 mg tablet 7.5 mg 1 tab(s), Oral, BIDM metformin 500 mg ER tablet 500 mg 1 tab(s), Oral, qDay metoprolol succinate 50 mg ER tablet 50 mg 1 tab(s), Oral, qDay multivitamin (Myadec) with minerals Therapeutic Multiple Vitamins with Minerals Tablet 1 tab(s), Oral, qDayM sodium zirconium cyclosilicate 10 g REC packet 10 gram(s) 1 packet(s), Oral, Once Continuous: (0) PRN: (10) acetaminophen 325 mg Tablet 650 mg 2 tab(s), Oral, q4h diphenhydramine 25 mg tablet 25 mg 1 tab(s), Oral, q6h diphenhyDRAMINE 50 mg/mL (1 mL) INJ 25 mg 0.5 mL, IV Push, q6h ketorolac 30 mg/mL (1 mL) vial 15 mg 0.5 mL, IV Push, q6h morphine 2 mg/mL 1 mL syringe 2 mg 1 mL, IV Push, q1h ondansetron 2 mg/ 1 mL 2 mL INJ 4 mg 2 mL, IV Push, q8h oxycodone 5 mg tablet (immediate release) 5 mg 1 tab(s), Oral, q4h oxycodone 5 mg tablet (immediate release) 10 mg 2 tab(s), Oral, q4h prochlorperazine 10 mg/2 mL vial 5 mg 1 mL, IV Push, q6h sodium biphosphate-sodium phosphate 19 gm-7 gm Enema 133 mL, Rectal, qDay Lab Results 12/27 05:28 WBC: 14.7 H Hgb: 12.3 L Hct: 36.4 L Platelet: 177 Neutrophil %: 89.8 H Glucose Level: 214 H Sodium Level: 136 Potassium Level: 5.6 H BUN: 51 H Creatinine Lvl (s): 1.11 EKG No qualifying data available. Assessment/Plan 1. Status post direct anterior right total hip arthroplasty postop day #1 2. Continue pain medications: Tylenol, meloxicam, oxycodone. Do not take any other nonsteroidal anti-inflammatories while on meloxicam/Mobic. 3. DVT prophylaxis: Take 81 mg aspirin twice daily with food for 4 weeks postoperatively for DVT prophylaxis. Patient denies past history of DVT or pulmonary embolism. Patient will also continue with the GAUDENCIO hose for 2 weeks postoperatively for swelling control. 4. Physical therapy: Weightbearing as tolerated with walker. Continue anterior hip precautions 5. H & H: 12.3/36.4, asymptomatic. Postoperative drop in hemoglobin from surgery without intraoperative complications. At this time there is no need for treatment. 6. Reactive Leukocytosis: currently 14.7, afebrile. Patient did receive decadron intra-operatively. No clinical signs of infection. 7. Hyperkalemia: Case was discussed with medicine and appreciate recommendations. Plan will be to retest potassium this afternoon for possible discharge. 8. Encouraged incentive spirometry 9. Continue postoperative medical management per medicine 10. Postoperative constipation: Discussed with the patient to continue stool softener until first bowel movement. After first bowel movement patient can then take as needed. They were also instructed that if they are not able to have a bowel movement within 3 days they are to contact our office for change of medication. Patient voiced understanding. 11. Disposition: Plan will be for possible discharge home today as long as patient is cleared medically with repeat potassium this afternoon. As long as patient is medically stable, tolerates therapy, and pain is well-controlled plan will be for discharge home. Patient wanted his narcotic medication sent to [facility] in [place]. We have had significant difficulties with sending postoperative narcotic medications to this facility. He then decided to send it to [facility]. Patient will follow-up per postoperative instructions. He has outpatient physical therapy established. Upon discharge he will contact our office with any concerns or questions. Again discharge today will be based on medicine as long as the potassium improves with treatment. I also advised the patient once he removes the Mepilex dressing he is to use a 4 x 4 sterile gauze pad and change daily to protect the proximal incision from his skin pannus. We discussed the potential for incision breakdown if he does not do this. He voiced understanding. This dictation was created using voice recognition software. Phonetic and/or grammatical errors may exist. Digitally Signed by YOSEF SALMON PA-C on 12/27/2024 08:[address] [facility] 12-26-2024 Note Exam Date Time Procedure Performing Provider Status 12/26/24 10:59 AM XR Fluoro 1-2 Hrs Tech Time Modified [id number] ORIGINAL Images acquired, not reported on this accession number. [facility]05-06-2025 Note* Exam Date Time Procedure Performing Provider Status 12/26/24 9:33 AM XR Hip Right w/Pelvis 4 Views SANJAY CURRY MD; Auth (Verified) [id number] ORIGINAL EXAMINATION: 2 XRAY VIEWS OF THE RIGHT HIP, 1 VIEWS OF THE PELVIS12/26/2024 9:36 am HIP UNILATERAL MIN 4V W/PELVIS RIGHT COMPARISON: None HISTORY: ORDERING SYSTEM PROVIDED HISTORY: Reason for Exam: Status Post Arthroplasty FINDINGS: No acute fracture or dislocation is identified. Bilateral hip arthroplasties noted. Mild enthesophytes seen in the pelvis. The joint space is maintained. There is no radiopaque foreign body. Right hip demonstrates anatomic alignment. No periprosthetic fracture. Air seen in the soft tissues of the right hip, presumably related to recent surgery. IMPRESSION: Bilateral hip arthroplasties. There is anatomic alignment of the new right hip arthroplasty Interpreted by: Sanjay Curry MD Preliminary Report By: Sanjay Curry MD Electronically signed By Sanjay Curry MD Dictated Date: 12/26/2024 9:41:11 AM Prelim Date: 12/26/2024 9:42:17 AM Sign Date: 12/26/2024 9:42:17 AM Ordering Provider: HERSON HE [facility]05-06-2025 Anesthesiology Consult note Patient: LUC GANNON Age: 84 years Sex: Male : 1940 Associated Diagnoses: None Author: WATSON CONRAD APRN-HOME CARE CONSULTANT Preoperative Information Time of last food or liquid consumption: 12/26/2024 00:00:00 Anesthesia history Patient's history: negative. Family's history: negative. Health Status Allergies: Allergic Reactions (Selected) Severity Not Documented Penicillin- Rash., Allergies (1) ActiveSeverityReaction penicillinRash Current medications: (Selected) Inpatient Medications Ordered Betadine 10% topical solution: 17.5 mL, mL/hr, Topical (INT), PREOP pharm Decadron: 10 mg, 1 mL, IV Push, AsDirected LR 1,000 mL: 20 mL/hr, Intravenous LR 1,000 mL: 20 mL/hr, Intravenous, Stop: 12/26/24 23:59:00 EDT Naropin 100 mg + Toradol 15 mg + morphine 2.5 mg + EPINEPHrine 0.3 m mg, 20 mL, mL/hr, Other,PREOP pharm Naropin 100 mg + Toradol 15 mg + morphine 2.5 mg + EPINEPHrine 0.3 m mg, 20 mL, mL/hr, Other,PREOP pharm tranexamic acid 1 g / 100 mL 0.7% NaCl PMX: 1 gram(s), 100 mL, 300 mL/hr, IV Piggyback, AsDirected tranexamic acid 1 g / 100 mL 0.7% NaCl PMX: 1 gram(s), 100 mL, 300 mL/hr, IV Piggyback, AsDirected Documented Medications Documented MetFORMIN (Eqv-Glucophage XR) 500 mg oral tablet, EXTENDED RELEASE: 500 mg, 1 tab(s), Oral, qDay, 90 tab(s), 0 Refill(s) Metoprolol Succinate ER 50 mg oral TABLET extended release: 50 mg, 1 tab(s), Oral, qDay, 30 tab(s),0 Refill(s) Vitamin D3 25 mcg (1000 intl units) oral capsule: 25 mcg, 1 cap(s), Oral, qDay, 75 cap(s), 0 Refill(s) acetaminophen 500 mg oral capsule: mg, cap(s), Oral, q6hr, 0 Refill(s) erythromycin 0.5% ophthalmic ointment: APPLY A SMALL AMOUNT INTO LEFT EYE AT BEDTIME furosemide 20 mg oral tablet: 20 mg, 1 tab(s), Oral, qDay, 30 tab(s), 0 Refill(s) lisinopril 20 mg oral tablet: 20 mg, 1 tab(s), Oral, qDay, 30 tab(s), 0 Refill(s) oxyCODONE 5 mg oral tablet ( IMMEDIATE release ): 5 mg, 1 tab(s), Oral, q6h, PRN: for pain, 12 tab(s), 0 Refill(s) prednisoLONE acetate 1% ophthalmic suspension: INSTILL 1 DROP INTO LEFT EYE THREE TIMES DAILY rosuvastatin 20 mg oral tablet: 20 mg, 1 tab(s), Oral, qDay, 90 tab(s), 0 Refill(s), Medications (8) Active Scheduled: (6) dexamethasone 10 mg/mL (1mL) SDV 10 mg 1 mL, IV Push, AsDirected povidone iodine topical 17.5 mL, Topical (INT), PREOP pharm ropivacaine 100 mg + ketorolac 15 mg + morphine 2.5 mg + epinephrine 0.3 mg 100 mg 20 mL, Other, PREOP pharm ropivacaine 100 mg + ketorolac 15 mg + morphine 2.5 mg + epinephrine 0.3 mg 100 mg 20 mL, Other, PREOP pharm tranexamic acid PMX 1 gram(s) 100 mL, IV Piggyback, AsDirected tranexamic acid PMX 1 gram(s) 100 mL, IV Piggyback, AsDirected Continuous: (2) Lactated Ringers 1,000 mL 1,000 mL, Intravenous, 20 mL/hr Lactated Ringers 1,000 mL 1,000 mL, Intravenous, 20 mL/hr PRN: (0) Problem list: Medical Diabetes / SNOMED CT 535737465 / Confirmed Hyperthyroidism / SNOMED CT 91860174 / Confirmed, Active Problems (3) Diabetes Hyperthyroidism Osteoarthritis Histories Past Medical History: No active or resolved past medical history items have been selected or recorded. Family History: Heart disease Mother Son Heart attack Sister Mother Procedure history: Hip replacement (3224864373). Comments: 04/03/2024 15:01 EDT - Ashleigh Barry LPN left Cholecystectomy (97806849). Inguinal herniorrhaphy (8602466816). Colonoscopy (241232774). Cataracts (4320131242). Social History: Social & Psychosocial Habits Alcohol 12/13/2024 Use: Never Substance Abuse 12/13/2024 Use: Never Tobacco 12/13/2024 Tobacco Use: Never (less than 100 in l Physical Examination Vital Signs 12/26/2024 7:30 EDT Heart Rate Monitored 83 bpm bpm Respiratory Rate - Anes 11 br/min br/min Systolic Blood Pressure Non-Invasive 84 mmHg mmHg Diastolic Blood Pressure Non-Invasive 51 mmHg mmHg 12/26/2024 7:27 EDT Systolic Blood Pressure Non-Invasive 91 mmHg mmHg Diastolic Blood Pressure Non-Invasive 50 mmHg mmHg 12/26/2024 7:25 EDT Heart Rate Monitored 58 bpm bpm Respiratory Rate - Anes 9 br/min br/min Systolic Blood Pressure Non-Invasive 66 mmHg mmHg Diastolic Blood Pressure Non-Invasive 46 mmHg mmHg 12/26/2024 7:20 EDT Heart Rate Monitored 65 bpm bpm Respiratory Rate - Anes 6 br/min br/min Systolic Blood Pressure Non-Invasive 95 mmHg mmHg Diastolic Blood Pressure Non-Invasive 54 mmHg mmHg 12/26/2024 7:17 EDT Systolic Blood Pressure Non-Invasive 116 mmHg mmHg Diastolic Blood Pressure Non-Invasive 55 mmHg mmHg 12/26/2024 7:15 EDT Respiratory Rate - Anes 0 br/min br/min 12/26/2024 7:10 EDT Respiratory Rate - Anes 0 br/min br/min 12/26/2024 5:42 EDT Temperature Temporal Artery 36.6 DegC Apical Heart Rate 76 bpm Respiratory Rate 16 br/min Systolic Blood Pressure Non-Invasive 157 mmHg HI Diastolic Blood Pressure Non-Invasive 73 mmHg Vital Signs (last 24 hrs) Last Charted Temp Chpmlelm56.6 DegC (DECEMBER 26 05:42) Heart Rate Wovnoqftt19 bpm (DECEMBER 26 07:30) SBP84 mmHg (DECEMBER 26 07:30) DBP51 mmHg (DECEMBER 26:30) Measurements from flowsheet : Measurements 12/26/2024 5:42 EDT Height 180.3 cm Admission Weight 127.8 kg [place] Body Weight 75.26 kg Admission Body Mass Index 39.31 m2 Pain assessment: Pain Assessment 12/26/2024 5:42 EDT Primary Pain Location Hip Primary Pain Laterality Right Primary Pain Intensity 6 Pain Scale Type 0-10 Pain scale . General: Alert and oriented. Airway: Normal temporomandibular joint mobility, Normal mouth. Mallampati classification: II (soft palate, fauces, uvula visible). Dentition Evaluation: Denies loose/chipped teeth. Respiratory: Respirations are non-labored. Cardiovascular: Normal rate. Neurologic: Alert, Oriented. Review / Management Results review: No qualifying data available , Lab results 12/26/2024 7:38 EDT SN - CAt - Case Attendee SN - CAt - Case Attendee 12/26/2024 7:32 EDT cefazolin 3 gram(s) gram(s) Sodium Chloride 0.9% 100 mL mL 12/26/2024 7:30 EDT Heart Rate Monitored 83 bpm bpm Respiratory Rate - Anes 11 br/min br/min Systolic Blood Pressure Non-Invasive 84 mmHg mmHg Diastolic Blood Pressure Non-Invasive 51 mmHg mmHg Oxygen Saturation 98 % % 12/26/2024 7:27 EDT Systolic Blood Pressure Non-Invasive 91 mmHg mmHg Diastolic Blood Pressure Non-Invasive 50 mmHg mmHg 12/26/2024 7:25 EDT Heart Rate Monitored 58 bpm bpm Respiratory Rate - Anes 9 br/min br/min Systolic Blood Pressure Non-Invasive 66 mmHg mmHg Diastolic Blood Pressure Non-Invasive 46 mmHg mmHg Oxygen Saturation 98 % % 12/26/2024 7:24 EDT citric acid-sodium citrate Not Given: Other (Not Done) 12/26/2024 7:20 EDT Heart Rate Monitored 65 bpm bpm Respiratory Rate - Anes 6 br/min br/min Systolic Blood Pressure Non-Invasive 95 mmHg mmHg Diastolic Blood Pressure Non-Invasive 54 mmHg mmHg Oxygen Saturation 98 % % 12/26/2024 7:17 EDT Systolic Blood Pressure Non-Invasive 116 mmHg mmHg Diastolic Blood Pressure Non-Invasive 55 mmHg mmHg 12/26/2024 7:15 EDT Respiratory Rate - Anes 0 br/min br/min 12/26/2024 7:12 EDT SN - Preop - CTm Pt in SDS Room 12/26/2024 5:40 SN - Preop - CTm Pt Ready for OR/Proced 12/26/2024 7:06 12/26/2024 7:10 EDT Respiratory Rate - Anes 0 br/min br/min 12/26/2024 6:56 EDT SN - GCD - Post-operative Diagnosis UNILATERAL OSTEOARTHRITIS, RIGHT HIP SN - GCD - Case Level Level 5 12/26/2024 6:51 EDT SN - CAt - Case Attendee SN - CAt - Case Attendee SN - CAt - Role Performed HOME CARE CONSULTANT 12/26/2024 6:50 EDT SN - PA - Route of Administration Local SN - PA - Route of Administration Local SN - PA - By (Single) SN - PA - By (Single) SN - PA - By (Single) SN - PA - By (Single) 12/26/2024 6:48 EDT SN - Assess - LOC Alert, Awake SN - Assess - Orientation Oriented X 3 SN - Assess - Post-op Skin Integrity Intact/Dry 12/26/2024 6:44 EDT Lactated Ringers Injection 1,000 mL mL 12/26/2024 6:43 EDT celecoxib 400 mg mg famotidine 20 mg mg 12/26/2024 6:42 EDT SN - CAt - Case Attendee SN - CAt - Case Attendee SN - CAt - Case Attendee SN - CAt - Case Attendee SN - CAt - Case Attendee SN - CAt - Case Attendee SN - CAt - Case Attendee SN - CAt - Case Attendee SN - CAt - Case Attendee SN - CAt - Case Attendee SN - CAt - Case Attendee SN - CAt - Case Attendee SN - CAt - Case Attendee SN - CAt - Case Attendee SN - CAt - Role Performed Primary Surgeon SN - CAt - Role Performed Contact Center Team Lead 1 SN - CAt - Role Performed Contact Center Team Lead 2 SN - CAt - Role Performed Scrub 2 SN - CAt - Role Performed Scrub 1 SN - CAt - Role Performed Nitroglycerin Nitrator Operator Batch 1 SN - CAt - Role Performed Physician Restaurant Greeter 12/26/2024 6:40 EDT Continuous IV Infusions LR Antecubital Left 12/26/2024 20 gauge Peripheral IV Activity: Insert new site Peripheral IV Dressing Condition: Clean, Dry, Intact Peripheral IV Dressing Activity: Applied, Transparent dressing Peripheral IV Line Status/Patency: Continuous infusion Peripheral IV Line Care: Secured with tape Peripheral IV Site Condition: No complications Peripheral IV Site Care: Direct pressure applied Peripheral IV Equipment: Extension set Peripheral IV Number of Attempts: 3 12/26/2024 6:26 EDT Designated Person #1 We May Share SHERLEY GANNON [phone] Designated Person #1 Relationship Son Privacy Restrictions Requested None Status N/A Sensory Deficits None Diagnosed With Sleep Apnea Yes Advanced Directives Yes Advance Directive Type [place] Durable Power of [employer] [place] Declaration (Living Will) Advance Directive Location Unable to obtain copy Infectious Disease Symptoms Patient states no symptoms Infectious Disease Recent Exposure No Alcohol and Drug Use No Employee of Institutional Living No Health Care Employee No History of Exposure to TB No History of Positive Chest X-Ray for TB No History of Positive TB Skin Test No Homeless No Known Immunosuppression No Recent Immigrant No Resident of Institutional Living No Bloody Sputum No Fatigue No Fever No Loss of Appetite No Night Sweats No Persistent Cough > 3 Weeks No Weight Loss No Barriers to Learning None evident Teaching Method Explanation Preferred Spoken Language Gambian Preferred Written Language Gambian Teaching Evaluation Needs further teaching Safety Brochure Information Reviewed Unable to complete Leticia Hdez Video Viewed No Patient's Current Physicians Patient's Current Physicians History of Malignant Hyperthermia No Discharge To, Anticipated Home independently Prev Test Positive/Diagnosis w/COVID-19 No Current Quarantine/Isolated any Illness No Any Contact with Sick Animals/Birds No Traveled Anywhere in Last 30 Days No Lost Weight Unintentionally Recently No Eat Poorly Due to Decreased Appetite No Total MST Score 0 N/A Personal Devices, Patient Valuables None Anesthesia/Transfusions Prior anesthesia Admission Note-Nursing Same Day Patient History 12/26/2024 5:59 EDT Blood Glucose, Capillary 142 mg/dL HI IV Present Present Allergies Yes Anesthesia Extension Set Applied Yes Small Brake Form Operator On Yes Consent Form Signed Yes Patient Dressed In Hospital gown Pre-op Preparation Undergarments removed CHG Preoperative Wash/Wipe Night before procedure, Day of procedure Preop Nasal Swab Povidone-Iodine History & Physical Update On Chart Yes History & Physical On Chart Yes Obstructive Sleep Apnea Assess Completed Yes Belongings At Bedside Pants, Shirt, Shoes, Socks, T-shirt, Undergarments, Walker Personal Home Medications Received No home medications were brought in Belongings Sent Home None Belongings to Security/Secured in Dept None NPO Status Maintained Allergy Band on and Verified Yes Patient ID Band on and Verified Yes Implants Verified Yes Pacemaker/AICD Verified Yes Site Verified by Patient/Family Yes Anesthesia Consent Signed Yes Blood Consent Signed Yes Last Fluid Intake 12/25/2024 22:00 Last Food Intake 12/25/2024 22:00 12/26/2024 5:42 EDT Height 180.3 cm Admission Weight 127.8 kg [place] Body Weight 75.26 kg Admission Body Mass Index 39.31 m2 Temperature Temporal Artery 36.6 DegC Apical Heart Rate 76 bpm Respiratory Rate 16 br/min Systolic Blood Pressure Non-Invasive 157 mmHg HI Diastolic Blood Pressure Non-Invasive 73 mmHg Primary Pain Location Hip Primary Pain Laterality Right Primary Pain Intensity 6 Pain Scale Type 0-10 Pain scale Heart Rhythm Regular Dorsalis Pedis Pulse, Left 1+ Thready Dorsalis Pedis Pulse, Right 1+ Thready Respirations Unlabored All Lobes Breath Sounds Clear Oxygen Therapy Room air Oxygen Saturation 98 % Abdomen Description Non-distended, Soft Bowel Sounds All Quadrants Present Urinary Elimination Voiding with difficulties Skin Description [place], Dry Skin Temperature Warm Skin Integrity Intact Mucous Membrane Color [place] Skin Moisture General Dry Characteristics of Speech Clear Level of Consciousness Alert Strength All Extremities Moderate Sensation All Extremities Intact Left Lower Extremity Sensation Intact Right Lower Extremity Sensation Intact Affect/Behavior Appropriate, Calm, Cooperative Orientation Oriented x 4 Patient Identified Identification band, Verbal Arrival Mode Walker [place] Motor (2) Moves 4 extremities voluntarily or on command [place] Respirations (2) Spontaneous respiration without support, RR > 10 [place] Blood Pressure (2) BP 20% above or below preanesthetic level [place] Pulse (2) Pulse 20% above or below preanesthetic level [place] Oxygen Saturation (2) 94% or more [place] Level of Consciousness (2) Fully awake [place] III Score 12 Assistive Device Walker Standard Safety ID band on, Allergy Band on, Call device within reach, Bed in low position, Wheels locked, Non-Slip footwear . Assessment and Plan [place] [employer] Anesthesiologists (ASA) physical status classification: Class III. Anesthetic Preoperative Plan Anesthetic technique: Spinal. Informed consent: signed by patient. Digitally Signed by WATSON CONRAD on 12/26/2024 07:[address] [facility]04-11-2025 Radiology Diagnostic study note [facility] Imaging Services [address] [place] [address] Testicular with Arterial Flow MR#: [id number] Acct: [id number] Name: LUC GANNON Rep #: [id number] : 1940 M 84 From: Kasey Guzmán MD PCP: Dr. Mary Abernathy MD Status: REG CLI Study:Testicular with Arterial Flow Date of E xam: 12/01/24 Exam# [id number] Ordering Dr: Mary Abernathy MD PROCEDURE: TESTICULAR WITH ARTERIAL FLOW 12/01/2024 REASON FOR EXAM: RIGHT SCROTAL SWELLING TECHNIQUE: Samson scale imaging and color and spectral Doppler analysis of the scrotal contents. COMPARISON: None. FINDINGS: RIGHT testicle: 2.6 x 2.3 x 1.1 cm Homogeneous echotexture. No intratesticular mass. No hydrocele or large varicocele. Right epididymis: Unremarkable LEFT testicle: 2.5 x 2.1 x 1.4 cm Homogeneous echotexture. No intratesticular mass. No hydrocele or large varicocele. Left epididymis: Unremarkable DOPPLER FINDINGS: Symmetric color doppler blood flow signal at both testes. Normal arterial inflow and venous outflow waveforms at both testes. US/Testicular with Arterial Flow IMPRESSION: No ultrasound evidence of testicular torsion. No intratesticular mass. Visualization of the adjacent tissues is limited. If concern for cutaneous/subcutaneous edema or mass, recommend evaluation with focused ultrasound. Reading Location: [facility] CC: Dr. Mary Abernathy MD ~ Regulatory Law Specialist: Signed [facility]03-18-2025 Radiology Diagnostic study note [facility] Imaging Services [address] [place], [place] [address] Hips B/L min 2 views w/ Pelvis MR#: [id number] Acct: [id number] Name: LUC GANNON Rep #: [id number] : 1940 M 84 From: Halle Recinos MD PCP: Dr. Mary Abernathy MD Status: REG CLI Study:Hips B/L min 2 views w/ Pelvis Date of Exam: 11/07/24 Exam# [id number] Ordering Dr: Mary Abernathy MD EXAM: XR Bilateral Hips With Pelvis When Performed, 2 or 3 Views CLINICAL INDICATION: PAIN TECHNIQUE: Three or four views of the bilateral hips with pelvis when performed. COMPARISON: No relevant prior studies available. FINDINGS: BONES/JOINTS: Left hip replacement. Intact hardware. Anatomic position. Milddegenerative change of the right hip joint. No acute fracture. No dislocation. SOFT TISSUES: Unremarkable. RAD/Hips B/L min 2 views w/ Pelvis IMPRESSION: 1. Postoperative changes as above. 2. Degenerative changes as above. Reading [facility] CC: Dr. Mary Abernathy MD ~ Regulatory Law Specialist: Signed [facility]01-14-2024 Miscellaneous Notes* Telephone Encounter - Jennifer Perdomo - 09/05/2023 8:30 AM EST Left detailed message on a secured voicemail. Jennifer Perdomo * Telephone Encounter - Jennifer Perdomo - 09/04/2023 8:24 AM EST Left message for patient to return call. Jennifer Perdomo * Telephone Encounter - Jaylan Todd PA-C - 09/04/2023 8:18 AM EST Please call let patient know he tested positive for influenza A. He is out of the window for Tamiflu treatment. Recommend continuing plan of care as discussed at visit. If not improving follow-up with primary doctor. documented in this encounterTri[facility]24 NoteHNO ID: [id number] Author: ALEXANDER WILL APRN.[employer] Service: ? Author Type: Nurse Practitioner Type: Progress Notes Filed: 09/03/2023 12:15 Note Text: Subjective HPI Nontoxic-appearing male presents to urgent care with chief complaint of fever and cough. Duration of symptoms 3 days. Associated symptoms with today's chief complaint are on and off headache, muscle aches, fatigue, nausea, sore throat, nonproductive cough, and fever. Patient stated symptoms started abruptly. Patient states they have used [id number] medication with some success. Temp today of 101 prior to arrival on arrival. Did take Tylenol this did help. Patient states they were in contact with individuals who had similar signs and symptoms. Did take a negative COVID-19 home test today prior to arrival. Patient denies any pain at this time. Patient denies any visual changes, visual disturbance, shortness of breath, rash, exercise intolerance, pleuritic pain, productive cough, abdominal pain, nausea, vomiting, chest pain, or change in bowel or bladder habits. Past medical history prescription medications allergies reviewed. .Patient presents with: Flu Like Symptoms: Head congestion, fever, head pressure, drainage cough, nausea x 3 days PAST MEDICAL HISTORY Diagnosis Date Glaucoma PAST SURGICAL HISTORY Procedure Laterality Date COLONOSCOPY PARTIAL HIP REPLACEMENT Right REMOVAL GALLBLADDER REPAIR UMBILICAL RYAN,5+Y/O,REDUC repaired twice ALLERGIES Penicillins MEDICATIONS latanoprost (XALATAN) 0.005 % ophthalmic solution Use 1 Drop in both eyes daily at bedtime. lisinopril (ZESTRIL) 10 mg tablet furosemide (LASIX) 20 mg tablet History reviewed. No pertinent family history. Social History Tobacco Use Smoking status: Never Smokeless tobacco: Never BP 124/71 Pulse 77 Temp 36.7 ?C (98 ?F) Resp 20 Wt 122 kg (269 lb) SpO2 97% Review of Systems Constitutional: Positive for chills, fever and malaise/fatigue. HENT: Positive for congestion and sore throat. Negative for ear discharge, ear pain and sinus pain. Eyes: Negative for blurred vision, pain, discharge and redness. Respiratory: Positive for cough. Negative for hemoptysis, sputum production, shortness of breath, wheezing and stridor. Cardiovascular: Negative for chest pain. Gastrointestinal: Positive for nausea. Negative for abdominal pain, diarrhea and vomiting. Musculoskeletal: Positive for myalgias. Skin: Negative for itching and rash. Neurological: Positive for headaches. Negative for dizziness. Objective Physical Exam Constitutional: General: He is not in acute distress. Appearance: He is not diaphoretic. HENT: Head: Normocephalic. Jaw: No trismus, tenderness, swelling or pain on movement. Nose: Congestion present. Mouth/Throat: Mouth: Mucous membranes are moist. Pharynx: Oropharynx is clear. Uvula midline. No pharyngeal swelling, oropharyngeal exudate, posterior oropharyngeal erythema or uvula swelling. Eyes: Conjunctiva/sclera: Conjunctivae normal. Pupils: Pupils are equal, round, and reactive to light. Cardiovascular: Rate and Rhythm: Normal rate and regular rhythm. Heart sounds: Normal heart sounds. Pulmonary: Effort: Pulmonary effort is normal. No tachypnea, accessory muscle usage or respiratory distress. Breath sounds: Normal breath sounds. No stridor. No wheezing, rhonchi or rales. Abdominal: General: There is no distension. Palpations: Abdomen is soft. Tenderness: There is no abdominal tenderness. There is no guarding or rebound. Musculoskeletal: Cervical back: Normal range of motion and neck supple. No edema, erythema, rigidity or tenderness. No pain with movement. Normal range of motion. Lymphadenopathy: Cervical: No cervical adenopathy. Skin: General: Skin is warm and dry. Neurological: Mental Status: He is alert and oriented to person, place, and time. ASSESSMENT/PLAN: 1. Viral illness - ICD9: 079.99, ICD10: B34.9 (primary diagnosis) - COVID AND INFLUENZA A/B AND RSV NAAT, ROUTINE 2. Suspected COVID-19 virus infection - ICD9: V01.79, ICD10: Z20.822 - COVID AND INFLUENZA A/B AND RSV NAAT, ROUTINE Patient nontoxic-appearing. Suspicious of viral illness with positive exposure similar signs and symptoms. Test for COVID-19 and influenza. If patient is positive for COVID-19 and is interested in antiviral therapy. Patient was educated on supportive therapies. Patient will follow up with primary care provider as needed. Patient was instructed to immediately proceed to emergency room for any new, worsening, or symptoms lasting longer than anticipated. The patient's clinical presentation is otherwise unremarkable at this time. Based on exam and clinical finding, the patient is stable for discharge. Plan of care was discussed with patient. Patient verbalizes understanding and agrees to plan of care. This note was generated using [employer] software. It ma (more content not included)...[facility] 01-25-2022 Miscellaneous Notes* Telephone Encounter - Angela Alfaro LPN - 01/25/2022 3:00 PM EDT Left message for patient with results.Angela Alfaro LPN * Telephone Encounter - Corrie Hair APRN.CNP - 01/25/2022 9:14 AM EDT Please notify of negative covid test. Continue comfort measures for symptoms as you would for a cold. Any worsening symptoms follow up with PCP or ER. Corrie Hair APRN.CNP documented in this encounterTri[facility]06-04-[facility]22 History of Present illness Narrative* Bert Downing MD - 01/24/2022 1:20 PM EDT Patient presents with: Chest Congestion: x 1 week, derm redness and swelling in right armpit area x 3-4 days HPI: Skin Lesion: Location: Right axilla Duration: 4 days Pruritis/Pain: Tender spot Change: NO Drainage/blister/pustule/ulceration: No drainage, red area, thinks picked off a skin tag Treatment: Cream -maybe cortisone Feeling congested this week Positive symptoms: Cough, Wheezing, Chest tightness, Nasal Congestion, Post nasal drainage, Body Aches, Negative symptoms: Shortness of breath, Fever, Chills, OTC: none. Had 3rd dose of COVID-19 vaccine in June. He was exposed to his son last week who is positive for COVID. PAST MEDICAL HISTORY Diagnosis Date Glaucoma PAST SURGICAL HISTORY Procedure Laterality Date COLONOSCOPY PARTIAL HIP REPLACEMENT Right REMOVAL GALLBLADDER REPAIR UMBILICAL RYAN,5+Y/O,REDUC repaired twice MEDICATIONS: No current outpatient medications on file. No current facility-administered medications for this visit. ALLERGIES: ALLERGIES Allergen Reactions Penicillins Rash VITALS: BP 132/72 Pulse 78 Temp 37.1 C (98.7 F) Resp 16 Wt 134.7 kg (297 lb) SpO2 97% PHYSICAL EXAM: GEN: Pleasant, in no acute distress. Accompanied by his HEENT: PERRL, EOMI, conjunctiva clear Ears: TMs without erythema, bulge, or effusion Sinuses: non-tender frontal sinus, non-tender maxillary sinuses Throat: moist mucous membranes, no erythema, no exudate Neck: supple, no thyromegaly, no lymphadenopathy HEART: regular rate and rhythm, no murmurs LUNGS: clear to auscultation, no wheezes or crackles, no increased WOB Axilla: Right compared to normal left. 1mm skin tag with dark portion and positioned in the center of 1cm erythema. No fluctuance. There is non-blanching erythema in a ring along the boundry of the axilla which fades toward the center. No induration. ASSESSMENT/PLAN: 1. Cough - ICD9: 786.2, ICD10: R05.9 (primary diagnosis) 2. Exposure to confirmed case of COVID-19 - ICD9: V01.79, ICD10: Z20.822 - suspect viral URI, differential includes COVID-19. - Red flags to seek further treatment include chest pain, shortness of breath, and lethargy; in theER if severe. - 2019 CORONAVIRUS 3. Inflamed skin tag - ICD9: 701.9, 686.9, ICD10: L91.8 There may be 2 separate issues of inflamed skin tag and more diffuse axillary dermatitis (contact/irritant, fungal, psoriasis). Treat with - DOXYCYCLINE MONOHYDRATE 100 MG CAPSULE He may switch to antifungal cream if not improving and follow up with PCP or dermatology. Bert Downing MD documented in this encounterTri[facility] HospitalEvaluation + Plan note Future Appointments Appointment Date:05/04/2024 09:30:00 AM Scheduled Provider: Location:XRAY Appointment Type:yyNM Thyroid Image w/ Uptake Multiple S2 Appointment Date:05/15/2024 10:00:00 AM Scheduled Provider:KP JAMES APRN-STEPHEN Location:[facility] Appointment Type:ENDO OV Future Scheduled Tests Laboratory* Thyrotropin Receptor Ab, Serum 05/07/24 * Thyroid Stimulating Hormone 05/07/24 * Free T4 05/07/24 * Free T3 05/07/24 [facility] Evaluation + Plan note Future Appointments Appointment Date:03/08/2025 10:45:00 AM Scheduled Provider:DANIEL ANDRADE MD Location:[facility] Appointment Type:ENDO OV Future Scheduled Tests Laboratory* Thyroid Stim Immunoglobulin 03/01/25 * Thyroid Stimulating Hormone 03/01/25 * Thyroid Stimulating Hormone 05/07/24 * Free T4 03/01/25 * A1C Hemoglobin 03/01/25 * Free T3 03/01/25 * Vitamin D Level 03/01/25 * Complete Metabolic Panel 03/01/25 * anti-Thyroid Peroxidase 03/01/25 Radiology* IR Thyroid Biopsy 05/15/[address] [facility] Evnrgation note* Diagnosis Onset Date Resolution Status Diarrhea acute [facility] Work Phone: Evaluation note* Diagnosis Onset Date Resolution Status Diarrhea acute Diarrhea acute Dysuria acute [facility] Work Phone: Evaluation note* Diagnosis Cough- Primary Exposure to confirmed case of COVID-19 Inflamed skin tag Unspecified hypertrophic and atrophic condition of skin documented in this encounter [facility]* Diagnosis Onset Date Resolution Status Crohn disease chronic [facility] Work Phone: Evaluation note* Diagnosis Onset Date Resolution Status Crohn disease chronic Monoclonal gammopathies academic associate ale [facility] Work Phone: Evaluation noteNo assessment information available [facility] Work Phone: Evaluation note* Diagnosis Onset Date Resolution Status Myelopathy acute Other intervertebral disc degeneration, 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 Hospital Discharge instructions Additional Instructions Continue your blood pressure medication lisinopril as prescribed. If possible log your blood pressures twice a day for the next week. Call your primary care physician's office follow-up within next week. Showed him the blood pressures and they can decide if they need to change or adjust her blood pressure medication they may have to change the dose. Follow-up with your cardiology appointment and your echocardiogram.[facility] Work Phone: Hospital Discharge instructions No data available for this section [facility] Hospital Discharge instructions Additional Instructions Thank you for trusting us with your care today! Your labs images were reassuring. Specifically your CT scan does not show evidence of a blood clot in the lung. There is no sign of significant electrolyte abnormalities, anemia, pneumonia. The cause your symptoms remains unclear and may be related to deconditioning after surgery. I have increased your Lasix from 20 mg to 40 mg hopefully help with leg swelling. I prescribe a 7-day course of this additional Lasix. Please take 40 mg daily for the next 7 days and follow your primary care physician for outpatient valuation and possible echocardiogram. Please take Tylenol (2 pills, 650 mg), ibuprofen (2 pills, 400 mg) every 6 hours as needed for pain and fever control. Please return to the emergency department if your symptoms change or worsen. Please follow with your primary care physician for further outpatient evaluation and management.[facility] Work Phone: Progress note No data available for this section [facility] Reason for referral (narrative)No reason for referral information availableWWestern Reserve Hospital Work Phone: Summary Purpose Family History No Family History Records Found Relationship Condition Age at Onset Recorded Date/T sole Not Specified Diabetes mellitus Unknown Myocardial infarction Unknown sister Malignant neoplasm Unknown mother Neoplasm of brain Unknown Relationship Condition Age at Onset Recorded Date/T sole Not Specified Diabetes mellitus Unknown sister Malignant neoplasm Unknown Cardiac disease Unknown mother Neoplasm of brain Unknown father Myocardial infarction Unknown son Cardiac disease Unknown Advance Directives No Advanced Directives Records Found Advance Directive Response Recorded Date/ Time Living Will No Anayeli 6th, 2022 2:27pm Power of Marble Cutter Operator No November 26 2:27pm Advance Directive Response Recorded Date/ Time Living Will No May 22, 2022 11:11am Power of Marble Cutter Operator No April 11:11am Advance Directive Response Recorded Date/ Time Living Will No May 22, 2022 10:11am Power of Marble Cutter Operator No April 10:11am Advance Directive Response Recorded Date/ Time Advance Directives No November 28 7:26am Living Will No November 29, 2023 7:26am Power of Marble Cutter Operator No November 28 7:26am Advance Directive Response Recorded Date/ Time Advance Directives No November 28 7:26am Advance Directive Response Recorded Date/ Time Do you have a Healthcare Power of Marble Cutter Operator? No January 05, 2025 5:16pm Advance Directives No November 28 7:26am Chief Complaint and Reason for Visit Chief Complaint UNABLE TO DO OA - CS COPE SCREEN Pre-Surgical Testing Reason for Visit Diarrhea Chief Complaint UNABLE TO DO OA - CS COPE SCREEN PAT Pre-Surgical Testing 2W POST SCOPE EORDERS DYSURIA Reason for Visit Diarrhea Diarrhea Dysuria Chief Complaint 8 WK FU 3 MO FU hypertension Reason for Visit Crohn disease Chief Complaint 3 MO FU hypertension CHF CAP ENDO 6MO LABS PRIOR (07/01) Reason for Visit Crohn disease Monoclonal gammopathies Chief Complaint EORDER- LEFT KNEE- p ain Chief Complaint LUMBAR SPINE Rm 1 LUMBAR SPINE CP (JOLLIFF) CHEST PAIN SOB Reason for Visit Myelopathy Other intervertebral disc degeneration, 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 Spondylolisthesis, lumbar region HTN (hypertension), benign Palpitations Shortness of breath on exertion Chief Complaint LUMBAR SPINE CP (JOLLIFF) CHEST PAIN SOB DYSPNEA Amb Documentation Reason for Visit Lumbar disc herniati on with radiculopathy Spondylolisthesis, lumbar region HTN (hypertension), benign Palpitations Shortness of breath on exertion Chief Complaint Admit Date pain- BOTH HIPS November 07, 2024 10: 12am Chief Complaint Admit Date pain- BOTH HIPS November 07, 2024 10: 12am RIGHT SCROTAL SWELLING December 01, 2024 3:21pm Chief Complaint Admit Date pain- BOTH HIPS November 07, 2024 10: 12am RIGHT SCROTAL SWELLING December 01, 2024 3:21pm sob January 05, 2025 4:34p m Health Concerns Infection Onset Date Last Indicated Resolved Time COVID-19 Rule-Out 01/24/2022 01/24/2022 Infection Onset Date Last Indicated Resolved Time COVID-19 Rule-Out 01/24/2022 01/24/2022 01/25/2022 8:57 AM EDT Infection Onset Date Last Indicated Resolved Time Influenza 09/03/2023 09/03/2023 Additional Source Comments (unrecognized sect ion and content) No Status Records FoundNo Status Records FoundNo Status Records FoundNo Status Records FoundNo Status Records FoundNo Status Records Found INFORMATION SOURCE (unrecogn ized section and content) DATE CREATED AUTHOR 05/24/2019 [facility] DATE CREATED AUTHOR AUTHOR'S ORGANIZ ATION 09/05/2023 [facility] DATE CREATED AUTHOR AUTHOR'S ORGANIZ ATION 04/25/2024 [facility] ([place]) DATE CREATED AUTHOR AUTHOR'S ORGANIZ ATION 05/19/2024 [facility] DATE CREATED AUTHOR AUTHOR'S ORGANIZ ATION 01/17/2025 [facility] DATE CREATED AUTHOR AUTHOR'S ORGANIZ ATION 02/02/2025 [facility] Goals (unrecognized section and content) Goals may be documented in a n alternate sectionGoals may be documented in an alternate sectionGoals may be documented in an alternate sectionGoals may be documented in an alternate sectionGoals may be documented in an alternate sectionGoals may be documented in an alternate sectionGoals may be documented in an alternate sectionGoals may be documented in an alternate sectionGoals may be documented in an alternate sectionGoals may be documented in an alternate sectionGoals may be documented in an alternate section No data available for this sectionGoals may be documented in an alternate sectionGoals may be documented in an alternate sectionGoals may be documented in an alternate section No data available for this section No data available for this sectionGoals may be documented in an alternate sectionGoals may be documented in an alternate sectionGoals may be documented in an alternate section Source Comments (unrecognize d section and content) In the event this informatio n is protected by the Federal Confidentiality of Alcohol and Drug Abuse Patient Records regulations: The Federal rules restrict any use of the information to criminally investigate or prosecute any alcohol or drug abuse patient.[facility] HospitalIn the event this information is protected by the Federal Confidentiality of Alcohol and Drug Abuse Patient Records regulations: The Federal rules restrict any use of the information to criminally investigate or prosecute any alcohol or drug abuse patient.[facility] HospitalIn the event this information is protected by the Federal Confidentiality of Alcohol and Drug Abuse Patient Records regulations: The Federal rules restrict any use of the information to criminally investigate or prosecute any alcohol or drug abuse patient.[facility] Reason for Visit (unrecogniz ed section and content) Reason Comments Chest Congestion x 1 week, derm redne ss and swelling in right armpit area x 3-4 days Reason Comments Results Care Teams (unrecognized sec tion and content) Team Status: Active Member Role Status Dates Dr. Janey Sanders MD Primary Care Provider Active Team Status: Inactive Member Role Status Dates Dr. Mary Abernathy MD Primary Care Provider Active Start: November 07, 2024 End: November 07, 2024 Dr. Mary Abernathy MD Attending Provider Active Start: November 07, 2024 End: November 07, 2024 Dr. Mary Abernathy MD Referring Provider Active Start: November 07, 2024 End: November 07, 2024 Team Status: Inactive Member Role Status Dates Dr. Mary Abernathy MD Primary Care Provider Active Start: November 24, 2024 End: November 24, 2024 NARESH Culp Attending Provider Active Start: November 24, 2024 End: November 24, 2024 NARESH Culp Referring Provider Active Start: November 24, 2024 End: November 24, 2024 Team Status: Inactive Member Role Status Dates Dr. Mary Abernathy MD Primary Care Provider Active Start: December 01, 2024 End: December 01, 2024 Dr. Mary Abernathy MD Attending Provider Active Start: December 01, 2024 End: December 01, 2024 Dr. Mary Abernathy MD Referring Provider Active Start: December 01, 2024 End: December 01, 2024 Team Status: Active Member Role Status Dates Dr. Janey Sanders MD Primary Care Provider Active Start: January 04, 2025 Dr. Janey Sanders MD Attending Provider Active Start: January 04, 2025 Dr. Janey Sanders MD Referring Provider Active Start: January 04, 2025 Team Status: Inactive Member Role Status Dates Dr. Janey Sanders MD Primary Care Provider Active Start: January 05, 2025 End: January 05, 2025 Dr. Modesto Carbajal DO Emergency Provider Active Start: January 05, 2025 End: January 05, 2025 Emulsion Coater Relationship Specialty Start Date End Date Mary Abernathy [address] [facility] [address] [place] [address] PCP - General Family Practice 05/12/19 Emulsion Coater Relationship Specialty Start Date End Date Mary Aberntahy [address] [facility] [address] [place], [place] [id number] PCP - General Family Practice 05/12/19 Team Status: Active Member Role Status Dates Dr. Mary Abernathy MD Primary Care Provider Active Team Status: Inactive Member Role Status Dates Dr. Mary Abernathy MD Primary Care Provider Active Dr. Adria Peña MD Attending Provider, Referri ng Provider Active Team Status: Inactive Member Role Status Dates Dr. Mary Abernathy MD Primary Care Provider, Attendin g Provider Active Emulsion Coater Relationship Specialty Start Date End Date Josemanuel Mary Blake Parris [address] [place] [address] PCP - General Family Medicine 05/12/19 Team Status: Inactive Member Role Status Dates Dr. Mary Abernathy MD Primary Care Provider, Referrin g Provider Active Dr. Ming Gonzalez MD Attending Provider Active Team Status: Inactive Member Role Status Dates Dr. Mary Abernathy MD Primary Care Provider Active Dr. Obinna Baltazar MD Attending Provider Active Team Status: Inactive Member Role Status Dates Dr. Mary Abernathy MD Primary Care Provider, Referrin g Provider Active Dr. Obinna Baltazar MD Attending Provider Active Team Status: Inactive Member Role Status Dates Dr. Mary Abernathy MD Primary Care Provider Active Dr. Obinna Baltazar MD Attending Provider, Referring Pro vider Active Team Status: Active Member Role Status Dates Dr. Mary Abernathy MD Primary Care Provider Active Dr. Obinna Baltazar MD Attending Provider Active Team Status: Active Member Role Status Dates Dr. Mary Abernathy MD Primary Care Provider Active Gisella Brown ELECTROCARDIOGRAPH OPERATOR, ELECTROCARDIOGRAPH OPERATOR-C Attending Provider Active Team Status: Inactive Member Role Status Dates Dr. Janey Sanders MD Primary Care Provider Active Start: January 04, 2025 End: January 04, 2025 Dr. Janey Sanders MD Attending Provider Active Start: January 04, 2025 End: January 04, 2025 Dr. Janey Sanders MD Referring Provider Active Start: January 04, 2025 End: January 04, 2025 Team Status: Inactive Member Role Status Dates Dr. Janey Sanders MD Primary Care Provider Active Start: January 05, 2025 End: January 05, 2025 Dr. Modesto Carbajal DO Attending Provider Active Start: January 05, 2025 End: January 05, 2025 Dr. Modesto Carbajal DO Emergency Provider Active Start: January 05, 2025 End: May 16th, 2025 Team Status: Inactive Member Role Status Dates Dr. Janey Sanders MD Primary Care Provider Active Start: January 25, 2025 End: January 25, 2025 Dr. Janey Sanders MD Attending Provider Active Start: January 25, 2025 End: January 25, 2025 Dr. Janey Sanders MD Referring Provider Active Start: January 25, 2025 End: January 25, 2025 FOR RECORDS PERTAINING TO PATIENTS WHO ARE OR HAVE BEEN ENROLLED IN A CHEMICAL DEPENDENCY/SUBSTANCEABUSE PROGRAM, SOME INFORMATION MAY BE OMITTED. This clinical summary was aggregated from multiple sources. Caution should be exercised in using it in the provision of clinical care. This summary normalizes information from multiple sources, and as a consequence, information in this document may materially change the coding, format and clinical context of patient data. In addition, data may be omitted in some cases. CLINICAL DECISIONS SHOULD BE BASED ON THE PRIMARY CLINICAL RECORDS. [facility] [employer] [facility] provides no warranty or guarantee of the accuracy or completeness of information in this document.
== END | disposition home or self-care (01) ==
LOC: CVS 07:02
PROVIDERS: PCP Family Medicine; Referring Provider Family Medicine; Visit Provider Family Medicine
DX: I50.9 Heart failure, unspecified (principal); R06.02 Shortness of breath
CPT/HCPCS: 93306; Q9957; A4216; C8929

== ENCOUNTER → 2025-02-26 | Outpatient (CLI) | payer MEDICARE, OTHER, SELFPAY ==
[2025-02-26 18:07] LABS: Hematocrit 34.8 % (40-54); Hemoglobin 11.2 g/dL (13.0-16.5); Immature Granulocytes Count 0.030 X10^3/uL (0.0-0.0); Mean Corp Hgb Conc 32.2 g/dL (32-36); Mean Corpuscular Volume 91.8 fL (80-94); Mean Platelet Vol. 10.2 fl (6.2-12.0); NRBC Flagged by Analyzer 0 % (0-5); Platelet Count 246 K/mm3 (150-450); RBC Distribution Width CV 13.2 % (11.6-14.6); RBC Distribution Width SD 44.1 fl (35.1-43.9); Red Blood Count 3.79 M/mm3 (4.6-6.2); White Blood Count 8.0 K/mm3 (4.4-11.0)
[2025-02-26 18:57] LABS: Ferritin 688 ng/mL (37-417); Iron 61 ug/dL (65-175); Iron Binding Capacity,Total 256 ug/dL (250-450); Iron Binding Capacity,Unsat 195 ug/dL (228-428); Pro- Brain NATRIURETIC PEPTIDE 3102 pg/mL (<=1800)
[2025-02-26 19:13] LABS: FOLATES,SERUM (FOLIC ACID) 10.40 ng/mL (4.60-34.80)
== END | disposition home or self-care (01) ==
LOC: MFPLAB 14:39
PROVIDERS: PCP Family Medicine; Referring Provider Family Medicine; Visit Provider Family Medicine
DX: D64.9 Anemia, unspecified (principal); E11.8 Type 2 diabetes mellitus with unspecified complications
CPT/HCPCS: 36415; 82728; 82746; 83036; 83540; 83550; 83880; 85025

== ENCOUNTER 2025-03-01 22:22 | Inpatient (IN) | payer MEDICARE, OTHER, SELFPAY ==
[2025-03-01 22:24] VITALS: BP 152/78; PULSE 94; RESP 20; TEMP 37.1; O2SAT 96; BMI 24.1
[2025-03-01 23:09] LABS: Hematocrit 38.9 % (40-54); Hemoglobin 12.8 g/dL (13.0-16.5); Immature Granulocytes Count 0.060 X10^3/uL (0.0-0.0); Mean Corp Hgb Conc 32.9 g/dL (32-36); Mean Corpuscular Volume 89.2 fL (80-94); Mean Platelet Vol. 10.8 fl (6.2-12.0); NRBC Flagged by Analyzer 0 % (0-5); Platelet Count 272 K/mm3 (150-450); RBC Distribution Width CV 13.1 % (11.6-14.6); RBC Distribution Width SD 42.6 fl (35.1-43.9); Red Blood Count 4.36 M/mm3 (4.6-6.2); White Blood Count 10.8 K/mm3 (4.4-11.0)
--- OUTSIDE RECORDS SUMMARY | 2025-03-01 23:10 | XMS RPT_ITS | CCD ---
Author Organization [facility] CliniSyor Care Team Providers Care Instrument Processing Tech Name Role Phone Dr. Mary Abernathy Primary Care Provider Dr. Mary Abernathy Referring Provider Halle, Dr. Sandy Attending Provider Dr. Obinna Baltazar Attending Provider Dr. Du Neri Referring Provider Mary Abernathy Primary Care Provider Dr. Mary Abernathy Primary Care Provider Dr. Mary Abernathy Referring Provider Dr. Du Neri Attending Provider Dr. Mary Abernathy Primary Care Provider Dr. Mary Abernathy Referring Provider Dr. Du Neri Attending Provider Dr. Dhruv Redding Attending Provider Dr. Watson Cat Attending Provider Mary Abernathy Primary Care Provider MARY ABERNATHY Primary Care Unavailable Dr. Mary Abernathy Primary Care Provider Dr. Mary Abernathy Referring Provider Dr. Ming Gonzalez Attending Provider Dr. Obinna Baltazar Attending Provider Dr. Mary Abernathy Primary Care Provider Dr. Mary Abernathy Referring Provider Dr. Ming Gonzalez Attending Provider Dr. Obinna Baltazar Attending Provider Kevin WARPING MILL OPERATOR, WARPING MILL OPERATOR-C Gisella Attending Provider ERIKA SPANGLER, KP Galaviz Attending Serge ABERNATHY MD, DR DE LA ROSA Primary Care Unavailable JOSEMANUEL ZELAYA, DR DE LA ROSA Primary Care Unavailable ERIKA SPANGLER, KP Galaviz Attending Serge ABERNATHY MD, DR DE LA ROSA Primary Care Unavailable ERIKA PIMENTEL-PAINT CREW SUPERVISOR, KP Galaviz Attending Sandeeva debbie SPANGLER, KP Galaviz Attending Serge ABERNATHY MD, DR DE LA ROSA Primary Care Unavailable JOSEMANUEL ZELAYA, DR DE LA ROSA Primary Care Physician Josemanuel ZELAYA, Dr. Mary Basilio Primary Care Provider Josemanuel ZELAYA, Dr. Mary Basilio Attending Provider Josemanuel ZELAYA, Dr. Mary Basilio Referring Provider Erika WARPING MILL OPERATOR-CKp Attending Provider Erika RADER-CKp Referring Provider Marilyn ZELAYA, Dr. Janey Nicolas Primary Care Provider [phone] Marilyn ZELAYA, Dr. Janey Nicolas Attending Provider Marilyn ZELAYA, Dr. Janey Nicolas Referring Provider [phone] Dr. Modesto Carbajal DO Emergency Provider JOSEMANUEL ZELAYA, DR DE LA ROSA Primary Care Unavailable NERI ZELAYA, DR HERSON Wong Admitting Melita Coley MD, DR HERSON Wong Attending Unavailab Mamadou ZELAYA, JANEY Hollis Unavailable ASHOK COLE Consulting Matthias HE MD, DR HERSON Wong Attending Melita Fraser MD, DR DE LA ROSA Primary Care Unavailable Dr. Modesto Carbajal DO Attending Provider Giovanny ZELAYA, Dr. Yeboah Attending Provider [phone] Janey Sanders Referring Unavailable Janey Sanders Attending Unavailable Janey Sanders Primary Care Unavailable Schinner, Janey E Referring Unavailable Marilyn, Janey E Attending Unavailable Schinner, Janey E Primary Care Unavailable Schinner, Janey E Primary Care Unavailable Schinner, Janey E Referring Unavailable Schinner, Janey E Attending Unavailable Schinner, Janey E Primary Care Unavailable GiovannyObinna Attending Unavailable Jolliff, Mary S Primary Care Unavailable Obinna Baltazar Attending Unavailable Pedro Segura Attending Unavailable Jolliff, Mary S Referring Unavailable Jolliff, Mary S Primary Care Unavailable Pedro Segura Attending Unavailable Jolliff, Mary S Referring Unavailable Jolliff, Mary S Primary Care Unavailable Jolliff, Mary S Primary Care Unavailable SHOOK, STE1 Referring Unavailable SHOOK, STE1 Attending Unavailable Pedro Segura Referring Unavailable Pedro Segura Attending Unavailable Jolliff, Mary S Primary Care Unavailable Kp James Referring Unavailable Kp James Attending Unavailable Jolliff, Mary S Primary Care Unavailable Modesto Carbajal Attending Unavailable Marilyn, Janey E Primary Care Unavailable Pedro Segura Referring Unavailable Pedro Segura Attending Unavailable Jolliff, Mary S Primary Care Unavailable Jolliff, Mary S Primary Care Unavailable Jolliff, Mary S Referring Unavailable Jolliff, Mary S Attending Unavailable Kp James Referring Unavailable Kp James Attending Unavailable Jolliff, Mary S Primary Care Unavailable Jolliff, Mary S Primary Care Unavailable Jolliff, Mary S Referring Unavailable Jolliff, Mary S Attending Unavailable Allergies Allergy Classification Reported Allergen(s) Allergy Type Date of Onset Reaction(s) Facility (20 sources) Penicillins; Translations: [PENICILLINS] Allergy to substance 9 Rash [facility] Work Phone: (3 sources) Penicillin; Translations: [penicillin] Drug Allergy Eruption (morphologic abnormality) [facility] [place] Medications Current Medications Medication Drug Class(es) Dates Sig (Normalized) Sig (Original) acetaminophen 500 mg oral tablet (16 sources) Start: 01-05-2025 take 2 tablets by mouth every six hours as needed for pain Acetaminophen 500 mg tablet Active 1000 mg PO EVERY 6 HOURS as needed for fever or pain January 05, 2025 12:00am Start: 12-27-2024 take 1 tablet by aguila once daily Tylenol Dose : 1,000 mg [...] 2024 8:19am aspirin 81 mg oral tablet (9 sources) Platelet Aggregation Inhibitor, Nonsteroidal Anti-inflammatory Drug [...] Comment on above: Take 1 capsule by [facility] three times a day as needed for cough for up to 7 days. cholecalciferol 0.025 mg oral capsule (4 sources) Vitamin D Start: 01-05-2025 take 1 capsule by mouth once daily Cholecalciferol (Vitamin D3) (Vitamin D3) 25 mcg (1,000 unit) capsule Active 50 ug PO DAILY January 05, 2025 12:00am docusate sodium 50 mg / sennosides, [facility] 8.6 mg oral tablet (1 source) Start: 12-27-2024 End: 12-30-2024 take 1 tablet by mouth twice daily Senokot S 50 mg-8.6 mg oral tablet Dose = 2 tab(s), Oral, BID, Take until first bowel movement, then as needed, X 3 day(s), # 12 tab(s), 0 Refill(s), Pharmacy: [facility]/pharmacy #[id number], 180.3, cm, 12/26/24 10:26:00 [...] qDay, # 30 tab(s), 0 Refill(s), Pharmacy: [facility]/pharmacy #[id number], 180.3, cm, 12/26/24 10:26:00 [...] mg tablet latanoprost 0.05 mg/ml ophthalmic suspension (20 sources) Prostaglandin Analog Start: 04-03-2024 take 1 [...] bedtime. magnesium oxide 400 mg oral tablet (4 sources) Start: 01-05-2025 take 1 tablet by [...] meloxicam/Mobic., # 60 tab(s), 0 Refill(s), Pharmacy: [facility]/pharmacy #[id number], 180.3, cm, 12/26/24 10:26:00 [...] hydrochloride 500 mg extended release oral tablet (6 sources) Biguanide Start: 01-05-2025 take 1 tablet [...] Start: 11-26-2021 take 1 capsule by mo [facility] once daily Multivitamin Active 1 CAP PO DAILY November 25, 2021 11:00pm Start: 11-26-2021 take 1 capsule by mo ut once daily Multivitamin Active 1 CAP PO DAILY November 26, 2021 12:00am [place]-3 Fatty Acids-Vitamin E (Fish Oil) 1,000 mg Capsule (18 sources) Start: 11-26-2021 take 1 capsule by mouth once daily [place]-3 Fatty Acids-Vitamin E (Fish Oil) 1,000 mg Capsule Active 1 CAP PO DAILY November 26, 2021 2:26pm Start: 11-26-2021 End: 07-08-2023 [place]-3 Fatty Acids-Vitamin E (Fish Oil) 1,000 mg Capsule Discontinued 1 NMA PO DAILY November 26, 2021 12:00am July 08, 2023 12:38pm Start: 11-26-2021 End: 07-08-2023 take 1 capsule by mouth once daily [place]-3 Fatty Acids-Vitamin E (Fish Oil) 1,000 mg Capsule Discontinued 1 CAP PO DAILY November 26, 2021 12:00am July 08, 2023 12:38pm Start: 11-26-2021 take 1 capsule by mo [facility] once daily [place]-3 Fatty Acids-Vitamin E (Fish Oil) 1,000 mg Capsule Active 1 CAP PO DAILY November 25, 2021 11:00pm Start: 11-26-2021 take 1 capsule by mo ut once daily [place]-3 Fatty Acids-Vitamin E (Fish Oil) 1,000 mg [...] 0 Refill(s), 01/03/25 8:06:00 AM EDT, Pharmacy: [facility]/pharmacy #[id number], S/P total right hip [...] 1 rosuvastatin calcium 20 mg oral tablet (6 sources) HMG-CoA Reductase Inhibitor Start: 01-05-2025 take [...] 1 tamsulosin hydrochloride 0.4 mg oral capsule (4 sources) alpha-Adrenergic Kaylee Start: 01-05-2025 take 1 [...] Sig (Original) atorvastatin 40 mg oral tablet (17 sources) HMG-CoA Reductase Inhibitor Start: 11-19-2023 End: 01-05-2025 take 1 tablet by mouth once daily Atorvastatin 40 mg tablet Discontinued 40 mg PO DAILY July 17, 2024 1:35pm January 05, 2025 6:16pm doxycycline hyclate 100 mg oral capsule (17 sources) Tetracycline-cla ss Drug Start: 02-27-2022 End: [...] Comment on above: Take 1 capsule by [facility] twice daily for 5 days. lisinopril 20 [...] 10:26am August 18, 2024 10:47am Multivitamin Capsule (7 sources) Start: 11-26-2021 End: 01-05-2025 Multivitamin Capsule Discont inued 1 NMA PO DAILY November 26, 2021 12:00am January 05, 2025 6:12pm Start: 11-26-2021 Multivitamin C apsule Active 1 NMA PO DAILY November 26, 2021 12:00am sucralfate 100 mg/ml oral suspension (13 sources) Aluminum Complex Start: 07-09-2022 End: 07-08-2023 [...] Sucralfate Discontinued 10 ML PO before meals 999July 09, 2022 1:00am July 08, 2023 12:38pm take two hours after medications and one hour before meals Problems Problem Classification Problem Date Documented Da te Episodic/Chronic Allergic reactions (1 source) Allergy status to penicillin; Translations: [Allergy status to penicillin] Onset: 12-26-2024 Episodic Cardiac dysrhythmias (11 sources) Palpitations; Translations: [Palpitations] 11-17-2023 Episodic Congestive heart failure; nonhypertensive (1 source) Heart failure, unspecified; Translations: [Heart failure, unspecified] Onset: 02-15-2025 Chronic Diabetes mellitus with complications (1 source) Type 2 diabetes mellitus with unspecified complications; Translations: [Type 2 diabetes mellitus with unspecified complications] Onset: 01-29-2025 Chronic Diabetes mellitus without complication (5 sources) Diabetes mellitus; Translations: [Type 2 diabetes mellitus without complication] Onset: 12-26-2024 11-30-2024 Chronic Essential hypertension (20 sources) Hypertensive disorder; Translations: [Essential (primary) hypertension] 05-30-2022 Chronic Fluid and electrolyte disorders (3 sources) Hyperkalemia; Translations: [Hyperkalemia] Onset: 12-26-2024 Episodic Genitourinary symptoms and ill-defined conditions (19 sources) Dysuria; Translations: [Dysuria] Episodic Immunity disorders (15 sources) Hailey light chain disease; 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 Not significant for any disease. Neoplasms of unspecified nature or uncertain behavior (16 sources) Monoclonal gammopathy (clinical); Translations: [Monoclonal gammopathy] Chronic Comment on above: M-spike 0 on 022, Immunoglobulins are normal. Noninfectious gastroenteritis (15 sources) Colitis; Translations: [Noninfective gastroenteritis and colitis, unspecified] 05-22-2022 Episodic Nonspecific chest pain (9 sources) Chest pain; Translations: [Chest pain, unspecified] 11-17-2023 Episodic Osteoarthritis (4 sources) Osteoarthritis; Translations: [Unspecified osteoarthritis, unspecified site] Onset: 11-16-2024 Chronic Other acquired deformities (9 sources) Lumbar spondylolisthesis; Translations: [Spondylolisthesis, lumbar region] 10-19-2023 Episodic Other acquired deformities (2 sources) Spondylolisthesis, lumbar region; Translations: [Acquired spondylolisthesis] 10-19-2023 Episodic Other aftercare (1 source) nursing home (current) use of oral hypoglycemic drugs; Translations: [nursing home (current) use of oral hypoglycemic drugs] Onset: 12-26-2024 Episodic Other aftercare (1 source) Other terminal operations supervisor (current) drug therapy; Translations: [Other half-way (current) drug therapy] Onset: 12-26-2024 Episodic Other aftercare (1 source) nursing home (current) use of opiate analgesic; Translations: [nursing home (current) use of opiate analgesic] Onset: 12-26-2024 Episodic Other aftercare (1 source) 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 (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) 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 of systemic 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; Translations: [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 (current) use of systemic steroids] Onset: 12-26-2024 [...] joint] Onset: 12-26-2024 Chronic Other gastrointestinal disorders (18 sources) Diarrhea; Translations: [Diarrhea, unspecified] 05-22-2022 Episodic Other gastrointestinal disorders (5 sources) Diarrhea, unspecified; Translations: [Diarrhea] Episodic Other lower respiratory disease (1 source) Cough; Translations: [Cough] Episodic Other lower respiratory disease (9 sources) Dyspnea on exertion; Translations: [Shortness of breath] 11-17-2023 Episodic Other lower respiratory disease (3 sources) Shortness of breath; Translations: [Shortness of breath] Onset: 01-09-2025 11-19-2023 Episodic Other male genital disorders (1 source) Other specified disorders of the male genital organs; Translations: [Other specified disorders of the male genital organs] Onset: 12-04-2024 Episodic Other nervous system disorders (9 sources) Spinal cord disease; Translations: [Disease of spinal cord, unspecified] 08-26-2023 Chronic Other nervous system disorders (1 source) Disease of spinal cord, unspecified; Translations: [Unspecified disease of spinal cord] 08-26-2023 Chronic Other skin disorders (1 source) Skin tag; Translations: [Other hypertrophic disorders of the skin] Episodic Regional enteritis and ulcerative colitis (18 sources) Crohn's disease; Translations: [Crohn's disease, unspecified, without complications] Chronic Residual codes; unclassified (15 sources) Peripheral edema; Translations: [Edema, unspecified] 05-30-2022 Episodic Residual codes; unclassified (9 sources) History of clinical finding in subject; Translations: [Personal history of other specified conditions] 11-17-2023 Episodic Spondylosis; intervertebral disc disorders; other back problems (10 sources) Degeneration of lumbar intervertebral disc; Translations: [Other intervertebral disc degeneration, lumbar region] 08-26-2023 Chronic Spondylosis; intervertebral disc disorders; other back problems (20 sources) Lumbar disc prolapse with radiculopathy; Translations: [Intervertebral disc disorders with radiculopathy, lumbar region] 10-19-2023 Episodic Syncope (9 sources) Syncope; Translations: [Syncope and collapse] 11-17-2023 [...] Test Name Value Interpretation Reference Range Facility Echo Complete W/ Contraston 02-08-2025 Echo Complete W/ Contrast [facility] [address] [place] [address] Echo Complete W/ Contrast 02/08/25 0715 MR#: [id number] Acct: [id number] Name: LUC GANNON Rep #: [id number] : 1940 84 From: Obinna Baltazar MD Attending Dr: Dr. Janey Sanders MD Status: R EG I Ordering Dr: Janey Sanders MD Date: 02/08/25 Location: [facility] Sex: M C Admitted: Reason For Study : SOB Procedure This was a 2D Doppler, Color Flow transthoracic echocardiogram. The study was technically difficult. Due to body habitus. Contrast injection was performed. Exam performed in department. Left Ventricle Normal LV size. The left ventricular ejection fraction is 55 %. Stage 1 diastolic dysfunction. No regional wall motion abnormalities noted. Right Ventricle Normal RV size. Normal systolic function. Atria Normal left atrium. Normal right atrium. Mitral Valve Normal mitral valve. Tricuspid Valve Normal tricuspid valve. Mild (1+) tricuspid valve insufficiency. Pulmonary artery systolic pressure is 32 mmHg. Aortic Valve Trisinus/trileaflet aortic valve. Pulmonic Valve Normal pulmonic valve. Great Vessels Normal aortic root. Pericardium/Pleural No pericardial effusion. Medication 22 gauge I.V. with prn adaptor inserted into right arm. Diluted definity 3.0ml given slow IV push to enhance endocardial definition. MMode/2D Measurements Calculations LVIDd: 5.6 cm IVSd: 1.3 cm Ao root diam: 3.6 cm LVIDs: 4.3 cm LVPWd: 1.4 cm RVDd: 4.1 cm FS: 24.3 % asc Aorta Diam: 4.2 cm LAV(MOD-bp): 62.4 ml LVAd ap2: 28.7 cm2 LAV(MOD-bp) Indexed: 26.3 ml/m2 LVLd ap2: 8.5 cm LAV(MOD-sp2): 60.9 ml EDV(MOD-sp2): 82.7 ml LAV(MOD-sp4): 60.8 ml EDV(sp2-el): 82.7 ml LVAs ap2: 17.4 cm2 LVLs ap2: 6.7 cm ESV(MOD-sp2): 37.0 ml ESV(sp2-el): 38.7 ml EF(MOD-sp2): 55.2 % SV(MOD-sp2): 45.7 ml LA A4 area: 20.0 cm2 LA dimension(2D): 4.5 cm SI(MOD-sp2): 19.2 ml/m2 RA A4 area: 16.4 cm2 TAPSE: 2.3 cm Time Measurements MV dec time: 0.23 sec Doppler Measurements Calculations MV E max shani: 74.5 cm/sec Lat Peak E' Shani: 6.6 cm/sec Med Peak E' Shani: 6.3 cm/sec MV A max shani: 83.7 cm/sec E/E' lat: 11.4 E/E' med: 11.7 MV E/A: 0.89 MV V2 max: 92.1 cm/sec MV P1/2t max shani: 91.3 cm/sec Ao V2 max: 157.5 cm/sec MV max P.4 mmHg MV P1/2t: 74.9 msec Ao max P.9 mmHg MV V2 mean: 58.5 cm/sec MV dec slope: 357.4 cm/sec2 Ao V2 mean: 106.6 cm/sec MV mean P.5 mmHg MVA(P1/2t): 2.9 cm2 Ao mean P.1 mmHg MV V2 VTI: 26.8 cm Ao V2 VTI: 33.7 cm AV (velocity ratio): 0.81 LV V1 max: 110.0 cm/sec PA V2 max: 124.0 cm/sec TR max shani: 225.6 cm/sec LV V1 max P.8 mmHg PA V2 mean: 88.6 cm/sec TR max P.4 mmHg LV V1 mean P.4 mmHg LV V1 mean: 73.3 cm/sec LV V1 VTI: 27.5 cm ECHO/Echo Complete W/ Contrast Interpretation Summary The left ventricular ejection fraction is 55 %. Normal LV size. Stage 1 diastolic dysfunction. Contrast injection was performed. Ordering Physician: Marilyn Nicolas Dr., MD Referring Physician: Janey Sanders Performed By: Esther Hanson, ALMITACS, RVT 02/08/25 1043 Date Obinna Baltazar MD CC: Dr. Janey Sanders MD Date Dictated: 02/08/25714 Date Transcribed: 02/08/25 104 Automobile Detailer: Signed Normal [facility] Echocardiogram study reportO rdered By: Obinna Baltazar on 02-08-2025 Study report [facility] [address] [place] [address] Echo Complete W/ Contrast 02/08/25714 MR#: [id number] Acct: [id number] Name: LUC GANNON Rep #:[id number] : 1940 84 From: Obinna Portillo Attending Dr: Dr. Janey Sanders MD Status: REG CLI Ordering Dr: Janey Sanders MD Date: 02/08/25 Location: [facility] Sex: M C Admitted: Reason For Study : SOB Procedure This was a 2D Doppler, Color Flow transthoracic echocardiogram. The study was technically difficult. Due to body habitus. Contrast injection was performed. Exam performed in department. Left Ventricle Normal LV size. The left ventricular ejection fraction is 55 %. Stage 1 diastolic dysfunction. No regional wall motion abnormalities noted. Right Ventricle Normal RV size. Normal systolic function. Atria Normal left atrium. Normal right atrium. Mitral Valve Normal mitral valve. Tricuspid Valve Normal tricuspid valve. Mild (1+) tricuspid valve insufficiency. Pulmonary artery systolic pressure is 32 mmHg. Aortic Valve Trisinus/trileaflet aortic valve. Pulmonic Valve Normal pulmonic valve. Great Vessels Normal aortic root. Pericardium/Pleural No pericardial effusion. Medication 22 gauge I.V. with prn adaptor inserted into right arm. Diluted definity 3.0ml given slow IV push to enhance endocardial definition. MMode/2D Measurements & Calculations LVIDd: 5.6 cm IVSd: 1.3 cm Ao root diam: 3.6 cm LVIDs: 4.3 cm LVPWd: 1.4 cm RVDd: 4.1 cm FS: 24.3 % asc Aorta Diam: 4.2 cm LAV(MOD-bp): 62.4 ml LVAd ap2: 28.7 cm2 LAV(MOD-bp) Indexed: 26.3 ml/m2 LVLd ap2: 8.5 cm LAV(MOD-sp2): 60.9 ml EDV(MOD-sp2): 82.7 ml LAV(MOD-sp4): 60.8 ml EDV(sp2-el): 82.7 ml LVAs ap2: 17.4 cm2 LVLs ap2: 6.7 cm ESV(MOD-sp2): 37.0 ml ESV(sp2-el): 38.7 ml EF(MOD-sp2): 55.2 % SV(MOD-sp2): 45.7 ml LA A4 area: 20.0 cm2 LA dimension(2D): 4.5 cm SI(MOD-sp2): 19.2 ml/m2 RA A4 area: 16.4 cm2 TAPSE: 2.3 cm Time Measurements MV dec time: 0.23 sec Doppler Measurements & Calculations MV E max shani: 74.5 cm/sec Lat Peak E' Shani: 6.6 cm/sec Med Peak E' Shani: 6.3 cm/sec MV A max shani: 83.7 cm/sec E/E' lat: 11.4 E/E' med: 11.7 MV E/A: 0.89 MV V2 max: 92.1 cm/sec MV P1/2t max shani: 91.3 cm/sec Ao V2 max: 157.5 cm/sec MV max P.4 mmHg MV P1/2t: 74.9 msec Ao max P.9 mmHg MV V2 mean: 58.5 cm/sec MV dec slope: 357.4 cm/sec2 Ao V2 mean: 106.6 cm/sec MV mean P.5 mmHg MVA(P1/2t): 2.9 cm2 Ao mean P.1 mmHg MV V2 VTI: 26.8 cm Ao V2 VTI: 33.7 cm AV (velocity ratio): 0.81 LV V1 max: 110.0 cm/sec PA V2 max: 124.0 cm/sec TR max shani: 225.6 cm/sec LV V1 max P.8 mmHg PA V2 mean: 88.6 cm/sec TR max P.4 mmHg LV V1 mean P.4 mmHg LV V1 mean: 73.3 cm/sec LV V1 VTI: 27.5 cm ECHO/Echo Complete W/ Contrast Interpretation Summary The left ventricular ejection fraction is 55 %. Normal LV size. Stage 1 diastolic dysfunction. Contrast injection was performed. Ordering Physician: Marilyn^Janey^Maria Isabel^^ Referring Physician: Janey Sanders Performed By: Esther Hanson, RDCS, RVT 02/08/25 1043 Date _ Obinna Baltazar MD CC: Dr. Janey Sanders MD ~ Date Dictated: 02/08/25714 Date Transcribed: 06/19/25 1042 Automobile Detailer: Signed [facility] Work Phone: Hemoglobin A1con 01-25-2025 HbA1c (Bld) [Mass fraction] 6.5 % High <=5.6 [facility] Comment on above: Order Comment: Order Date: 01/25/25Order Info: [id number] - A1C Result Comment: Norm al < 5.7 % Prediabetic 5.7 - 6.4 % Diabetic >or= 6.5 % Please note range changes. Performed By: #### P SSII #### [facility] [address] [place], [place], [id number] Hemoglobin A1c percentageOrd ered By: Janey Sanders on 01-25-2025 HbA1c (Bld) [Mass fraction] 6.5 % High <5.7 [facility] Comment on above: Normal < 5.7 % Predi abetic 5.7 - 6.4 % Diabetic >or= 6.5 % Please note range changes. [id number] 01-25-2025 Natriuretic peptide B (Bld) [Mass/Vol] 3483 pg/mL High <=1800 [facility] Comment on above: Result Comment: Hear t Failure Unlikely: < 300 pg/mL Heart Failure Likely < 50 Years: > 450 pg/mL 50-75 Years: > 900 pg/mL >75 Years: > 1800 pg/mL Performed By: #### P SSII #### [facility] [address] [place], [address] Microalb:Creat Ratio,Random URon 01-25-2025 Creatinine [Mass/Vol] 64.00 mg/dL Normal 39.00- 259.0 0 [facility] Comment on above: Order Comment: Order Date: 01/25/25Order Info: [id number] - MIALB Performed By: #### P SSII #### [facility] [address] [place], [place], [id number] MALB:CREAT UNABLE TO CALCULATE Normal [facility] Comment on above: Order Comment: Order Date: 01/25/25Order Info: [id number] - MIALB Performed By: #### P SSII #### [facility] [address] [place], [place], [id number] MICROALBUMIN,UR < 12.0 Normal NO RANGE EST. [facility] Comment on above: Order Comment: Order Date: 01/25/25Order Info: [id number] - MIALB Performed By: #### P SSII #### [facility] [address] [place], [place], [id number] Microalbumin/creat ratio urO rdered By: Janey Sanders on 01-25-2025 Urine microalbumin/creatinine ratio measurement UNABLE TO CALCULATE mg/g CRE [facility] Natriuretic peptide.B prohor carmela N-Terminal [Mass/volume] in Serum or PlasmaOrdered By: Janey Sanders on 01-25-2025 Natriuretic peptide.B prohormone N-Terminal [Mass/Vol] 3483 pg/mL High <1800 [facility] Comment on above: Heart Failure Unlike ly: < 300 pg/mLHeart Failure Likely< 50 Years: > 450 pg/mL50-75 Years: > 900 pg/mL>75 Years: > 1800 pg/mL Random urine creatinine andrez urement (mass/volume)Ordered By: Janey Sanders on 01-25-2025 Creatinine Unsp time (U) [Mass/Vol] 64.00 mg/dL 39.00-259.0 0 [facility] Urine albumin measurement wi detection limit of 20 mg/L or less (mass/volume)Ordered By: Janey Sanders on 01-25-2025 Albumin DL <= 20 mg/L (U) [Mass/Vol] < 12.0 mg/L NO RANGE EST. [facility] Thyroglobulin w/Anti-TG ABon 01-10-2025 Anti-TG AB < 1.0 Normal 0.0-0.9 [facility] Comment on above: Result Comment: Thyr oglobulin Antibody measured by Awesomi Milburn Methodology It should be noted that the presence of thyroglobulin antibodies may not be pathogenic nor diagnostic, especially at very low levels. The assay grain ii farmworker has found that four percent of individuals without evidence of thyroid disease or autoimmunity will have positive TgAb levels up to 4 IU/mL. Performed By: #### L 500.4050, L100.0100, L501.9520, L506.0400, L500.4100, L501.5200 #### [facility] [address], [place], [id number] THYROGLOB QUANT 196.9 ng/mL High 1.4-29.2 [facility] Comment on above: Result Comment: [...] quantitation is 0.1 ng/mL Thyroglobulin measured by Jack Milburn Immunometric Assay Performed By: #### L 500.4050, L100.0100, L501.9520, L506.0400, L500.4100, L501.5200 #### [facility] [address], [place], [id number] Thyroid Peroxidase ABon 05-2 THYR PEROX AB 23 IU/mL Normal 0-34 [facility] Comment on above: Result Comment: Perf ormed at: - [facility] [id number] Director Oracle Database: Apollo Mcgill PhD, Phone: [phone] Performed By: #### L 500.4050, L100.0100, L501.9520, L506.0400, L500.4100, L501.5200 #### [facility] [address], [place], [id number] 12 Lead EKGon 01-05-2025 12 Lead EKG [facility] Services [address] [place] [address] 12 Lead EKG 01/05/25 1707 MR#: [id number] Acct: [id number] Name: LUC GANNON Rep #: [id number] : 1940 84 From: Obinna Baltazar MD [...] Abnormal ECG Confirmed by OBINNA BALTAZAR MD ([id number]), assignment editor MELYSSA GÓMEZ ([id number]) on 01/08/2025 8:49:03 AM Referred By: Confirmed By: OBINNA BALTAZAR MD 01/08/25 0849 Date Obinna Baltazar MD CC: Dr. Janey Sanders MD; Dr. Modesto Carbajal DO Signed Normal [facility] Absolute lymphocyte countOrd ered By: Modesto Carbajal on 01-05-2025 Lymphocytes Auto (Unsp spec) [#/Vol] 0.67 10*3/uL Low 0.83-4.51 [facility] Absolute neutrophil countOrd ered By: Modesto Carbajal on 01-05-2025 Neutrophils (Bld) [#/Vol] 7.4 10*3/uL 2.0-7.7 [facility] Anion gap in Serum or Plasma Ordered By: Modesto Carbajal on 01-05-2025 Anion gap [Moles/Vol] 11 mmol/L 5-15 [facility] Automated lymphocyte count a s percentage of total leukocytesOrdered By: Modesto Carbajal on 01-05-2025 Lymphocytes/100 WBC Auto (Unsp spec) 7.2 % Low 19-41 [facility] BUN/creatinine ratioOrdered By: Modesto Carbajal on 01-05-2025 Urea nitrogen/Creatinine [Mass ratio] 35.6 mg/mg High 10-20 [facility] Basic Metabolic Profile (BMP )on 01-05-2025 BUN/CRE 35.6 RATIO High 10-20 [facility] Comment on above: Performed By: #### P SSII #### [facility] [address] [place], [address] Calcium [Mass/Vol] 9.1 mg/dL Normal 7.6-11.0 [facility] Comment on above: Performed By: #### P SSII #### [facility] [address] [place], [address] Chloride [Moles/Vol] 102 mmol/L Normal 98-108 [facility] Comment on above: Performed By: #### P SSII #### [facility] [address] [place], [address] CO2 [Moles/Vol] 23.7 mmol/L Normal 21.0-32.0 [facility] Comment on above: Performed By: #### P SSII #### [facility] [address] [place], [address] Creatinine [Mass/Vol] 1.07 mg/dL Normal 0.70-1.20 [facility] Comment on above: Performed By: #### P SSII #### [facility] [address] [place], [address] ECRCL 71.69 ml/min Normal 50-250 [facility] Comment on above: Performed By: #### P SSII #### [facility] [address] [place], [address] GAP 11 Normal 5-15 [facility] Comment on above: Performed By: #### P SSII #### [facility] [address] [place], [address] GFR/1.73 sq M.predicted among non-blacks MDRD (S/P/Bld) [Vol rate/Area] 69 mL/min/{1.73_m2} Normal >60 [facility] Comment on above: Result Comment: mL/m in/1.73m2 CKD-EPI Creatinine Equation (2020) Performed By: #### P SSII #### [facility] [address] [place], [address] Glucose [Mass/Vol] 107 mg/dL High 70-99 [facility] Comment on above: Performed By: #### P SSII #### [facility] [address] [place], [address] Potassium [Moles/Vol] 5.0 mmol/L Normal 3.3-5.1 [facility] Comment on above: Performed By: #### P SSII #### [facility] [address] [place], [address] Sodium [Moles/Vol] 136 mmol/L Normal 133-145 [facility] Comment on above: Performed By: #### P SSII #### [facility] [address] [place], [address] Urea nitrogen [Mass/Vol] 38 mg/dL High 4-19 [facility] Comment on above: Performed By: #### P SSII #### [facility] [address] [place], [address] Basophil percentageOrdered B y: Modesto Carbajal on 01-05-2025 Basophils/100 WBC (Bld) 0.5 % 0-1 [facility] CBC W/Diff, Automatedon 12-21 Absolute Lymph 0.67 X10 3/uL Low 0.83-4.51 [facility] Comment on above: Performed By: #### P SSII #### [facility] [address] [place], [address] Absolute Neut 7.4 X10 3/uL Normal 2.0-7.7 [facility] Comment on above: Performed By: #### P SSII #### [facility] [address] [place], [address] Basophils/100 WBC (Bld) 0.5 % Normal 0-1 [facility] Comment on above: Performed By: #### P SSII #### [facility] [address] [place], [address] Eosinophils/100 WBC (Bld) 1.8 % Normal 0-5 [facility] Comment on above: Performed By: #### P SSII #### [facility] [address] [place], [address] Erythrocyte distribution width (RBC) [Ratio] 13.3 % Normal 11.6-14.6 [facility] Comment on above: Performed By: #### P SSII #### [facility] [address] [place], [address] Hematocrit (Bld) [Volume fraction] 32.4 % Low 40-54 [facility] Comment on above: Performed By: #### P SSII #### [facility] [address] [place], [address] Hemoglobin (Bld) [Mass/Vol] 10.8 g/dL Low 13.0-16.5 [facility] Comment on above: Performed By: #### P SSII #### [facility] [address] [place], [address] IG% 1.200 High 0.0-0.9 [facility] Comment on above: Result Comment: IG% - Immature Granulocytes (promyelocytes, myelocytes and metamyelocytes) > 1% indicates that a LEFT SHIFT is Present. Performed By: #### P SSII #### [facility] [address] [place], [address] Lymphocytes/100 WBC (Bld) 7.2 % Low 19-41 [facility] Comment on above: Performed By: #### P SSII #### [facility] [address] [place], [address] MCH (RBC) [Entitic mass] 29.8 pg Normal 27.0-32.0 [facility] Comment on above: Performed By: #### P SSII #### [facility] [address] [place], [address] MCHC (RBC) [Mass/Vol] 33.3 g/dL Normal 32-36 [facility] Comment on above: Performed By: #### P SSII #### [facility] [address] [place], [address] MCV (RBC) [Entitic vol] 89.5 fL Normal 80-94 [facility] Comment on above: Performed By: #### P SSII #### [facility] [address] [place], [address] Monocytes/100 WBC (Bld) 9.7 % Normal 0-10 [facility] Comment on above: Performed By: #### P SSII #### [facility] [address] [place], [address] Neutrophils/100 WBC (Bld) 79.6 % High 47-70 [facility] Comment on above: Performed By: #### P SSII #### [facility] [address] [place], [address] Nucleated RBC (Bld) [#/Vol] 0 10*3/uL Normal 0-5 [facility] Comment on above: Performed By: #### P SSII #### [facility] [address] [place], [address] Platelet mean volume (Bld) [Entitic vol] 8.8 fL Normal 6.2-12.0 [facility] Comment on above: Performed By: #### P SSII #### [facility] [address] [place], [address] Platelets (Bld) [#/Vol] 252 10*3/uL Normal 150-450 [facility] Comment on above: Performed By: #### P SSII #### [facility] [address] [place], [address] RBC (Bld) [#/Vol] 3.62 10*6/uL Low 4.6-6.2 [facility] Comment on above: Performed By: #### P SSII #### [facility] [address] [place], [address] RDW SD 43.9 fl Normal 35.1-43.9 [facility] Comment on above: Performed By: #### P SSII #### [facility] [address] [place], [address] WBC (Bld) [#/Vol] 9.4 10*3/uL Normal 4.4-11.0 [facility] Comment on above: Performed By: #### P SSII #### [facility] [address] [place], [address] CTA Chest W/WO Contraston CTA Chest W/WO Contrast [facility] [address] [place] [address] CTA Chest W/WO Contrast MR#: [id number] Acct: [id number] Name: LUC GANNON Rep #: [id number] : 1940 M 84 From: Sang nicolas MD PCP: Dr. Janey Sanders MD Status: [facility] ER Study: CTA Chest W/WO Contrast Date of Exam: 01/05/25 Exam# [id number] Ordering Dr: Modesto Carbajal DO PROCEDURE: CTA [...] acute findings in the thorax. Reading Location: [facility] CC: Dr. Janey Sanders MD; Dr. Modesto Carbajal DO Automobile Detailer: Signed Normal [facility] Carbon dioxide, total [Moles /volume] in Central venous bloodOrdered By: Modesto Carbajal on 01-05-2025 CO2 [Moles/Vol] 23.7 mmol/L 21.0-32.0 [facility] Chloride assayOrdered By: Ulisses Carbajal on 01-05-2025 Chloride [Moles/Vol] 102 mmol/L 98-108 [facility] Emergency Department Summary on 01-05-2025 Emergency Department Summary [facility] Medical Records Department [address] [place] [address] Emergency Department Summary 01/05/25 MR#: [id number] Acct: [id number] Name: LUC GANNON Rep #: [id number] : 1940 84 From: Modesto Carbajal DO PCP: Dr. Janey Sanders MD Status:DEP ER Location: ED HPI History of Present Illness Chief Complaint: Shortness of Breath [facility] Medical History Thyroid nodule Palpitations Crohn disease [...] posterior tibial) (more content not included)... Normal [facility] Eosinophil percentageOrdered By: Modesto Carbajal on 01-05-2025 Eosinophils/100 WBC (Bld) 1.8 % 0-5 [facility] Erythrocyte distribution wid th ratioOrdered By: Modesto Carbajal on 01-05-2025 Erythrocyte distribution width (RBC) [Ratio] 13.3 % 11.6-14.6 [facility] Erythrocyte distribution wid th standard deviationOrdered By: Modesto Carbajal on 01-05-2025 Erythrocyte distribution width (RBC) [Ratio] 43.9 fl 35.1-43.9 [facility] Glomerular filtration rate ( GFR) estimation/1.73 sq m using serum, plasma, or whole bOrdered By: Modesto Carbajal on 01-05-2025 GFR/1.73 sq M.predicted among non-blacks MDRD (S/P/Bld) [Vol rate/Area] 69 mL/min/{1.73_m2} >60 [facility] Comment on above: mL/min/1.73m2 CKD-EP I Creatinine Equation (2020) Hematocrit Auto (Bld) [Volum e fraction]Ordered By: Modesto Carbajal on 01-05-2025 Hematocrit (Bld) [Volume fraction] 32.4 % Low 40-54 [facility] Hemoglobin measurementOrdere d By: Modesto Carbajal on 01-05-2025 Hemoglobin (Bld) [Mass/Vol] 10.8 g/dL Low 13.0-16.5 [facility] Immature granulocytes/100 WB C Auto (Bld)Ordered By: Modesto Carbajal on 01-05-2025 Immature granulocytes/100 WBC (Bld) 1.200 % High 0.0-0.9 [facility] Comment on above: IG% - Immature Granu locytes (promyelocytes, myelocytes and metamyelocytes) > 1% indicates that a LEFT SHIFT is Present. Iron+Iron Binding Capacityon 01-05-2025 TIBC 231 ug/dL Low 250-450 [facility] Comment on above: Order Comment: Order Date: 01/04/25 Order Info: [id number] - CMP Order Info: [id number] - LIPID Order Info: [id number] - MG Order Info: [id number] - TSH Order Info: [id number] - T4F Performed By: #### L 500.4050, L100.0100, L501.9520, L506.0400, L500.4100, L501.5200 #### [facility] [address] [place], [address] L499.0042on 01-05-2025 Trop T High Sen 35 ng/L High <=22 [facility] Comment on above: Performed By: #### L 500.4050, L100.0100, L501.9520, L506.0400, L500.4100, L501.5200 #### [facility] [address] [place], [address] L499.0043on 01-05-2025 Trop T High Sen Normal <=22 [facility] Comment on above: Result Comment: Canc elled via OM: Order cancelled - Patient discharged Performed By: #### L 500.4050, L100.0100, L501.9520, L506.0400, L500.4100, L501.5200 #### [facility] [address] [place], [address] L501.4021on 01-05-2025 Trop T High Sen 37 ng/L High <=22 [facility] Comment on above: Performed By: #### P SSII #### [facility] [address] [place], [address] L503.7505on 01-05-2025 Natriuretic peptide B (Bld) [Mass/Vol] 1924 pg/mL High <=1800 [facility] Comment on above: Result Comment: Hear t Failure Unlikely: < 300 pg/mL Heart Failure Likely < 50 Years: > 450 pg/mL 50-75 Years: > 900 pg/mL >75 Years: > 1800 pg/mL Performed By: #### P SSII #### [facility] [address] [place], [address] MCV (mean corpuscular volume ) determinationOrdered By: Modesto Carbajal on 01-05-2025 MCV (RBC) [Entitic vol] 89.5 fL 80-94 [facility] Mean corpuscular hemoglobin (MCH) determinationOrdered By: Modesto Carbajal on 01-05-2025 MCH (RBC) [Entitic mass] 29.8 pg 27.0-32.0 [facility] Mean corpuscular hemoglobin concentration (MCHC) determinationOrdered By: Modesto Carbajal on 01-05-2025 MCHC (RBC) [Mass/Vol] 33.3 g/dL 32-36 [facility] Mean platelet volume determi nationOrdered By: Modesto Carbajal on 01-05-2025 Platelet mean volume (Bld) [Entitic vol] 8.8 fL 6.2-12.0 [facility] Monocyte percentageOrdered B y: Modesto Carbajal on 01-05-2025 Monocytes/100 WBC (Bld) 9.7 % 0-10 [facility] Natriuretic peptide.B prohor carmela N-Terminal [Mass/volume] in Serum or PlasmaOrdered By: Modesto Carbajal on 01-05-2025 Natriuretic peptide.B prohormone N-Terminal [Mass/Vol] 1924 pg/mL High <1800 [facility] Comment on above: Heart Failure Unlike ly: < 300 pg/mLHeart Failure Likely< 50 Years: > 450 pg/mL50-75 Years: > 900 pg/mL>75 Years: > 1800 pg/mL Neutrophil percentageOrdered By: Modesto Carbajal on 01-05-2025 Neutrophils/100 WBC (Bld) 79.6 % High 47-70 [facility] Nucleated red blood cell per centageOrdered By: Modesto Carbajal on 01-05-2025 Nucleated RBC/100 WBC (Bld) [Ratio] 0 % 0-5 [facility] Platelet countOrdered By: Ulisses Carbajal on 01-05-2025 Platelets (Bld) [#/Vol] 252 10*3/uL 150-450 [facility] Potassium measurement (mass/ volume)Ordered By: Modesto Carbajal on 01-05-2025 Potassium (Unsp spec) [Mass/Vol] 5.0 mmol/L 3.3-5.1 [facility] RBC Auto (Bld) [#/Vol]Ordere d By: Modesto Carbajal on 01-05-2025 RBC (Bld) [#/Vol] 3.62 10*6/uL Low 4.6-6.2 [facility] Serum creatinine measurement (mass/volume)Ordered By: Modesto Carbajal on 01-05-2025 Creatinine [Mass/Vol] 1.07 mg/dL 0.70-1.20 [facility] Serum glucose measurement (m ass/volume)Ordered By: Modesto Carbajal on 01-05-2025 Glucose [Mass/Vol] 107 mg/dL High 70-99 [facility] Serum or plasma calcium andrez urement (mass/volume)Ordered By: Modesto Carbajal on 01-05-2025 Calcium [Mass/Vol] 9.1 mg/dL 7.6-11.0 [facility] Serum or plasma urea nitroge n measurement (mass/volume)Ordered By: Modesto Carbajal on 01-05-2025 Urea nitrogen [Mass/Vol] 38 mg/dL High 4-19 [facility] Sodium levelOrdered By: Rachelle Carbajal on 01-05-2025 Sodium [Moles/Vol] 136 mmol/L 133-145 [facility] Troponin T.cardiac [Mass/vol ume] in Serum or Plasma by High sensitivity methodOrdered By: Modesto Carbajal on 01-05-2025 Troponin T.cardiac High sensitivity method [Mass/Vol] 35 ng/L High <22 [facility] Troponin T.cardiac High sensitivity method [Mass/Vol] 37 ng/L High <22 [facility] White blood cell (WBC) count Ordered By: Modesto Carbajal on 01-05-2025 WBC (Bld) [#/Vol] 9.4 10*3/uL 4.4-11.0 [facility] Absolute lymphocyte countOrd ered By: Janey Sanders on 01-04-2025 Lymphocytes Auto (Unsp spec) [#/Vol] 0.54 10*3/uL Low 0.83-4.51 [facility] Absolute neutrophil countOrd ered By: Janey Sanders on 01-04-2025 Neutrophils (Bld) [#/Vol] 9.3 10*3/uL High 2.0-7.7 [facility] Anion gap in Serum or Plasma Ordered By: Janey Sanders on 01-04-2025 Anion gap [Moles/Vol] 12 mmol/L 01-04 [facility] Automated lymphocyte count a s percentage of total leukocytesOrdered By: Jaeny Sanders on 01-04-2025 Lymphocytes/100 WBC Auto (Unsp spec) 4.9 % Low 19-41 [facility] BUN/creatinine ratioOrdered By: Janey Sanders on 01-04-2025 Urea nitrogen/Creatinine [Mass ratio] 38.4 mg/mg High 10-20 [facility] Basophil percentageOrdered B y: Janey Sanders on 01-04-2025 Basophils/100 WBC (Bld) 0.4 % 0-1 [facility] Bilirubin, totalOrdered By: Janey Sanders on 01-04-2025 Bilirubin [Mass/Vol] 0.45 mg/dL 0.00-1.30 [facility] CBC W/Diff, Automatedon 12-21 Absolute Lymph 0.54 X10 3/uL Low 0.83-4.51 [facility] Comment on above: Order Comment: Order Date: 01/04/25 Order Info: [id number] - CBCD Performed By: #### L 500.4050, L100.0100, L501.9520, L506.0400, L500.4100, L501.5200 #### [facility] [address] [place], [address] Absolute Neut 9.3 X10 3/uL High 2.0-7.7 [facility] Comment on above: Order Comment: Order Date: 01/04/25 Order Info: [id number] - CBCD Performed By: #### L 500.4050, L100.0100, L501.9520, L506.0400, L500.4100, L501.5200 #### [facility] [address] [place], [address] Basophils/100 WBC (Bld) 0.4 % Normal 0-1 [facility] Comment on above: Order Comment: Order Date: 01/04/25 Order Info: [id number] - CBCD Performed By: #### L 500.4050, L100.0100, L501.9520, L506.0400, L500.4100, L501.5200 #### [facility] [address] [place] [place], [address] Eosinophils/100 WBC (Bld) 1.6 % Normal 0-5 [facility] Comment on above: Order Comment: Order Date: 01/04/25 Order Info: [id number] - CBCD Performed By: #### L 500.4050, L100.0100, L501.9520, L506.0400, L500.4100, L501.5200 #### [facility] [address] [place], [address] Erythrocyte distribution width (RBC) [Ratio] 13.4 % Normal 11.6-14.6 [facility] Comment on above: Order Comment: Order Date: 01/04/25 Order Info: [id number] - CBCD Performed By: #### L 500.4050, L100.0100, L501.9520, L506.0400, L500.4100, L501.5200 #### [facility] [address] [facility] [facility], [address] Hematocrit (Bld) [Volume fraction] 35.4 % Low 40-54 [facility] Comment on above: Order Comment: Order Date: 01/04/25 Order Info: [id number] - CBCD Performed By: #### L 500.4050, L100.0100, L501.9520, L506.0400, L500.4100, L501.5200 #### [facility] [address] [place], [address] Hemoglobin (Bld) [Mass/Vol] 11.3 g/dL Low 13.0-16.5 [facility] Comment on above: Order Comment: Order Date: 01/04/25 Order Info: [id number] - CBCD Performed By: #### L 500.4050, L100.0100, L501.9520, L506.0400, L500.4100, L501.5200 #### [facility] [address] [place], [address] IG% 1.100 High 0.0-0.9 [facility] Comment on above: Order Comment: Order Date: 01/04/25 Order Info: [id number] - CBCD Result Comment: IG% - Immature Granulocytes (promyelocytes, myelocytes and metamyelocytes) > 1% indicates that a LEFT SHIFT is Present. Performed By: #### L 500.4050, L100.0100, L501.9520, L506.0400, L500.4100, L501.5200 #### [facility] [address] [place], [address] Lymphocytes/100 WBC (Bld) 4.9 % Low 19-41 [facility] Comment on above: Order Comment: Order Date: 01/04/25 Order Info: [id number] - CBCD Performed By: #### L 500.4050, L100.0100, L501.9520, L506.0400, L500.4100, L501.5200 #### [facility] [address] [place], [address] MCH (RBC) [Entitic mass] 29.3 pg Normal 27.0-32.0 [facility] Comment on above: Order Comment: Order Date: 01/04/25 Order Info: [id number] - CBCD Performed By: #### L 500.4050, L100.0100, L501.9520, L506.0400, L500.4100, L501.5200 #### [facility] [address] [place], [address] MCHC (RBC) [Mass/Vol] 31.9 g/dL Low 32-36 [facility] Comment on above: Order Comment: Order Date: 01/04/25 Order Info: 0184-1 - CBCD Performed By: #### L 500.4050, L100.0100, L501.9520, L506.0400, L500.4100, L501.5200 #### [facility] [address] [place], [address] MCV (RBC) [Entitic vol] 91.7 fL Normal 80-94 [facility] Comment on above: Order Comment: Order Date: 01/04/25 Order Info: 0184-1 - CBCD Performed By: #### L 500.4050, L100.0100, L501.9520, L506.0400, L500.4100, L501.5200 #### [facility] [address] [place], [address] Monocytes/100 WBC (Bld) 7.6 % Normal 0-10 [facility] Comment on above: Order Comment: Order Date: 01/04/25 Order Info: 0184-1 - CBCD Performed By: #### L 500.4050, L100.0100, L501.9520, L506.0400, L500.4100, L501.5200 #### [facility] [address] [place], [address] Neutrophils/100 WBC (Bld) 84.4 % High 47-70 [facility] Comment on above: Order Comment: Order Date: 01/04/25 Order Info: 0184-1 - CBCD Performed By: #### L 500.4050, L100.0100, L501.9520, L506.0400, L500.4100, L501.5200 #### [facility] [address] [place], [address] Nucleated RBC (Bld) [#/Vol] 0 10*3/uL Normal 0-5 [facility] Comment on above: Order Comment: Order Date: 01/04/25 Order Info: 0184-1 - CBCD Performed By: #### L 500.4050, L100.0100, L501.9520, L506.0400, L500.4100, L501.5200 #### [facility] [address] [place], [address] Platelet mean volume (Bld) [Entitic vol] 9.4 fL Normal 6.2-12.0 [facility] Comment on above: Order Comment: Order Date: 01/04/25 Order Info: 0184- - CBCD Performed By: #### L 500.4050, L100.0100, L501.9520, L506.0400, L500.4100, L501.5200 #### [facility] [address] [place], [address] Platelets (Bld) [#/Vol] 282 10*3/uL Normal 150-450 [facility] Comment on above: Order Comment: Order Date: 01/04/25 Order Info: 0184-1 - CBCD Performed By: #### L 500.4050, L100.0100, L501.9520, L506.0400, L500.4100, L501.5200 #### [facility] [address] [place], [address] RBC (Bld) [#/Vol] 3.86 10*6/uL Low 4.6-6.2 [facility] Comment on above: Order Comment: Order Date: 01/04/25 Order Info: 0184-1 - CBCD Performed By: #### L 500.4050, L100.0100, L501.9520, L506.0400, L500.4100, L501.5200 #### [facility] [address] [place], [address] RDW SD 45.3 fl High 35.1-43.9 [facility] Comment on above: Order Comment: Order Date: 01/04/25 Order Info: 0184-1 - CBCD Performed By: #### L 500.4050, L100.0100, L501.9520, L506.0400, L500.4100, L501.5200 #### [facility] [address] [place], [address] WBC (Bld) [#/Vol] 11.0 10*3/uL Normal 4.4-11.0 [facility] Comment on above: Order Comment: Order Date: 01/04/25 Order Info: 0184-1 - CBCD Performed By: #### L 500.4050, L100.0100, L501.9520, L506.0400, L500.4100, L501.5200 #### [facility] [address] [place], [address] Calculated very low density lipoprotein (VLDL) cholesterol measurementOrdered By: Janey Sanders on 01-04-2025 Calculated very low density lipoprotein (VLDL) cholesterol measurement 27 mg/dL 5-40 [facility] Carbon dioxide, total [Moles /volume] in Central venous bloodOrdered By: Janey Sanders on 01-04-2025 CO2 [Moles/Vol] 22.6 mmol/L 21.0-32.0 [facility] Chloride assayOrdered By: Neha Sanders on 01-04-2025 Chloride [Moles/Vol] 102 mmol/L 98-108 [facility] Comprehensive Metabolic Prof ilon 01-04-2025 Albumin [Mass/Vol] 3.5 g/dL Normal 3.4-4.8 [facility] Comment on above: Order Comment: Order Date: 01/04/25 Order Info: [id number] - CMP Order Info: [id number] - LIPID Order Info: [id number] - MG Order Info: 3016-3 - TSH Order Info: 3024-7 - T4F Performed By: #### L 500.4050, L100.0100, L501.9520, L506.0400, L500.4100, L501.5200 #### [facility] [address] [place], [address] Albumin/Globulin [Mass ratio] 1.3 {ratio} Normal 0.9-2.4 [facility] Comment on above: Order Comment: Order Date: 01/04/25 Order Info: 86-1 - CMP Order Info: [id number] - LIPID Order Info: [id number] - MG Order Info: 3016-3 - TSH Order Info: 3024-7 - T4F Performed By: #### L 500.4050, L100.0100, L501.9520, L506.0400, L500.4100, L501.5200 #### [facility] [address] [place], [address] ALK PHOS 72 U/L Normal 40-129 [facility] Comment on above: Order Comment: Order Date: 01/04/25 Order Info: 0786-1 - CMP Order Info: [id number] - LIPID Order Info: [id number] - MG Order Info: 6-3 - TSH Order Info: 3024-7 - T4F Performed By: #### L 500.4050, L100.0100, L501.9520, L506.0400, L500.4100, L501.5200 #### [facility] [address] [place], [address] ALT [Catalytic activity/Vol] 23 U/L Normal <=46 [facility] Comment on above: Order Comment: Order Date: 01/04/25 Order Info: 0786-1 - CMP Order Info: [id number] - LIPID Order Info: [id number] - MG Order Info: 3016-3 - TSH Order Info: 3024-7 - T4F Performed By: #### L 500.4050, L100.0100, L501.9520, L506.0400, L500.4100, L501.5200 #### [facility] [address] [place], [address] AST [Catalytic activity/Vol] 22 U/L Normal <=37 [facility] Comment on above: Order Comment: Order Date: 01/04/25 Order Info: 0786-1 - CMP Order Info: [id number] - LIPID Order Info: [id number] - MG Order Info: 3016-3 - TSH Order Info: 3024-7 - T4F Performed By: #### L 500.4050, L100.0100, L501.9520, L506.0400, L500.4100, L501.5200 #### [facility] [address] [place], [place], [address] Bilirubin [Mass/Vol] 0.45 mg/dL Normal 0.00-1.30 [facility] Comment on above: Order Comment: Order Date: 01/04/25 Order Info: 86-1 - CMP Order Info: [id number] - LIPID Order Info: [id number] - MG Order Info: 3016-3 - TSH Order Info: 3024-7 - T4F Performed By: #### L 500.4050, L100.0100, L501.9520, L506.0400, L500.4100, L501.5200 #### [facility] [address] [place], [place], [address] BUN/CRE 38.4 RATIO High 10-20 [facility] Comment on above: Order Comment: Order Date: 01/04/25 Order Info: 86-1 - CMP Order Info: [id number] - LIPID Order Info: [id number] - MG Order Info: 3016-3 - TSH Order Info: 3024-7 - T4F Performed By: #### L 500.4050, L100.0100, L501.9520, L506.0400, L500.4100, L501.5200 #### [facility] [address] [place], [address] Calcium [Mass/Vol] 9.1 mg/dL Normal 7.6-11.0 [facility] Comment on above: Order Comment: Order Date: 01/04/25 Order Info: 0786-1 - CMP Order Info: [id number] - LIPID Order Info: [id number] - MG Order Info: 3016-3 - TSH Order Info: 3024-7 - T4F Performed By: #### L 500.4050, L100.0100, L501.9520, L506.0400, L500.4100, L501.5200 #### [facility] [address] [place], [address] Chloride [Moles/Vol] 102 mmol/L Normal 98-108 [facility] Comment on above: Order Comment: Order Date: 01/04/25 Order Info: 0786-1 - CMP Order Info: [id number] - LIPID Order Info: [id number] - MG Order Info: 3016-3 - TSH Order Info: 3024-7 - T4F Performed By: #### L 500.4050, L100.0100, L501.9520, L506.0400, L500.4100, L501.5200 #### [facility] [address] [place], [address] CO2 [Moles/Vol] 22.6 mmol/L Normal 21.0-32.0 [facility] Comment on above: Order Comment: Order Date: 01/04/25 Order Info: 0786-1 - CMP Order Info: [id number] - LIPID Order Info: [id number] - MG Order Info: 3016-3 - TSH Order Info: 3024-7 - T4F Performed By: #### L 500.4050, L100.0100, L501.9520, L506.0400, L500.4100, L501.5200 #### [facility] [address] [place], [address] Creatinine [Mass/Vol] 1.11 mg/dL Normal 0.70-1.20 [facility] Comment on above: Order Comment: Order Date: 01/04/25 Order Info: 07-1 - CMP Order Info: [id number] - LIPID Order Info: [id number] - MG Order Info: 3016-3 - TSH Order Info: 302-7 - T4F Performed By: #### L 500.4050, L100.0100, L501.9520, L506.0400, L500.4100, L501.5200 #### [facility] [address] [place], [address] GAP 12 Normal 5-15 [facility] Comment on above: Order Comment: Order Date: 01/04/25 Order Info: 785- - CMP Order Info: [id number] - LIPID Order Info: [id number] - MG Order Info: 3 - TSH Order Info: 7 - T4F Performed By: #### L 500.4050, L100.0100, L501.9520, L506.0400, L500.4100, L501.5200 #### [facility] [address] [place], [place], [address] GFR/1.73 sq M.predicted among non-blacks MDRD (S/P/Bld) [Vol rate/Area] 66 mL/min/{1.73_m2} Normal >60 [facility] Comment on above: Order Comment: Order Date: 01/04/25 Order Info: 785-1 - CMP Order Info: [id number] - LIPID Order Info: [id number] - MG Order Info: 3016-3 - TSH Order Info: 3024-7 - T4F Result Comment: mL/m in/1.73m2 CKD-EPI Creatinine Equation (2020) Performed By: #### L 500.4050, L100.0100, L501.9520, L506.0400, L500.4100, L501.5200 #### [facility] [address] [place], [address] Globulin (S) [Mass/Vol] 2.8 g/dL Normal 2.2-4.2 [facility] Comment on above: Order Comment: Order Date: 01/04/25 Order Info: 86-1 - CMP Order Info: [id number] - LIPID Order Info: [id number] - MG Order Info: 3016-3 - TSH Order Info: 3024-7 - T4F Performed By: #### L 500.4050, L100.0100, L501.9520, L506.0400, L500.4100, L501.5200 #### [facility] [address] [place], [address] Glucose [Mass/Vol] 120 mg/dL High 70-99 [facility] Comment on above: Order Comment: Order Date: 01/04/25 Order Info: 785-1 - CMP Order Info: [id number] - LIPID Order Info: [id number] - MG Order Info: 3015-3 - TSH Order Info: 3024-7 - T4F Performed By: #### L 500.4050, L100.0100, L501.9520, L506.0400, L500.4100, L501.5200 #### [facility] [address] [place], [address] Potassium [Moles/Vol] 4.8 mmol/L Normal 3.3-5.1 [facility] Comment on above: Order Comment: Order Date: 01/04/25 Order Info: 0786-1 - CMP Order Info: [id number] - LIPID Order Info: [id number] - MG Order Info: 3016-3 - TSH Order Info: 3024-7 - T4F Performed By: #### L 500.4050, L100.0100, L501.9520, L506.0400, L500.4100, L501.5200 #### [facility] [address] [place], [address] Sodium [Moles/Vol] 137 mmol/L Normal 133-145 [facility] Comment on above: Order Comment: Order Date: 01/04/25 Order Info: 0786-1 - CMP Order Info: [id number] - LIPID Order Info: [id number] - MG Order Info: 3016-3 - TSH Order Info: 3024-7 - T4F Performed By: #### L 500.4050, L100.0100, L501.9520, L506.0400, L500.4100, L501.5200 #### [facility] [address] [place], [address] T PROT 6.3 g/dL Normal 5.9-8.4 [facility] Comment on above: Order Comment: Order Date: 01/04/25 Order Info: 0786-1 - CMP Order Info: [id number] - LIPID Order Info: [id number] - MG Order Info: 6-3 - TSH Order Info: 3024-7 - T4F Performed By: #### L 500.4050, L100.0100, L501.9520, L506.0400, L500.4100, L501.5200 #### [facility] [address] [place], [place], [address] Urea nitrogen [Mass/Vol] 43 mg/dL High 4-19 [facility] Comment on above: Order Comment: Order Date: 01/04/25 Order Info: 0786-1 - CMP Order Info: [id number] - LIPID Order Info: [id number] - MG Order Info: 3016-3 - TSH Order Info: 3024-7 - T4F Performed By: #### L 500.4050, L100.0100, L501.9520, L506.0400, L500.4100, L501.5200 #### [facility] [address] [place], [place], [address] Eosinophil percentageOrdered By: Janey Sanders on 01-04-2025 Eosinophils/100 WBC (Bld) 1.6 % 0-5 [facility] Erythrocyte distribution wid th ratioOrdered By: Janey Sanders on 01-04-2025 Erythrocyte distribution width (RBC) [Ratio] 13.4 % 11.6-14.6 [facility] Erythrocyte distribution wid th standard deviationOrdered By: Janey Sanders on 01-04-2025 Erythrocyte distribution width (RBC) [Ratio] 45.3 fl High 35.1-43.9 [facility] Glomerular filtration rate ( GFR) estimation/1.73 sq m using serum, plasma, or whole bOrdered By: Janey Sanders on 01-04-2025 GFR/1.73 sq M.predicted among non-blacks MDRD (S/P/Bld) [Vol rate/Area] 66 mL/min/{1.73_m2} >60 [facility] Comment on above: mL/min/1.73m2 CKD-EP I Creatinine Equation (2020) Hematocrit Auto (Bld) [Volum e fraction]Ordered By: Janey Sanders on 01-04-2025 Hematocrit (Bld) [Volume fraction] 35.4 % Low 40-54 [facility] Hemoglobin measurementOrdere d By: Janey Sanders on 01-04-2025 Hemoglobin (Bld) [Mass/Vol] 11.3 g/dL Low 13.0-16.5 [facility] Immature granulocytes/100 WB C Auto (Bld)Ordered By: Janey Sanders on 01-04-2025 Immature granulocytes/100 WBC (Bld) 1.100 % High 0.0-0.9 [facility] Comment on above: IG% - Immature Granu locytes (promyelocytes, myelocytes and metamyelocytes) > 1% indicates that a LEFT SHIFT is Present. Iron measurement (mass/mass) Ordered By: Janey Sanders on 01-04-2025 Iron (Unsp spec) [Mass/Mass] 52 ug/dL Low 65-175 [facility] LDL calc ser/plasOrdered By: Janey Sanders on 01-04-2025 Cholesterol in LDL [Mass/Vol] 46 mg/dL [facility] Comment on above: Czbxepuvwb=119-782 m g/dL & Higher Bkun=698 mg/dL or greater Laboratory - Chemistry and C hemistry - challengeOrdered By: Janey Sanders on 01-04-2025 AST [Catalytic activity/Vol] 22 U/L <38 [facility] Lipid Profileon 05-15-2025 CHOL:HDL 2.55 Normal [facility] Comment on above: Order Comment: Order Date: 01/04/25 Order Info: 07- - CMP Order Info: [id number] - LIPID Order Info: [id number] - MG Order Info: 3 - TSH Order Info: 3024-02 T4F Performed By: #### L 500.4050, L100.0100, L501.9520, L506.0400, L500.4100, L501.5200 #### [facility] [address] [place], [address] Cholesterol [Mass/Vol] 119 mg/dL Normal <=200 [facility] Comment on above: Order Comment: Order Date: 01/04/25 Order Info: 785-08 - CMP Order Info: [id number] - LIPID Order Info: [id number] - MG Order Info: 3 - TSH Order Info: 3024-02 T4F Result Comment: Chol esterol level, Desirable <200 mg/dL Borderline high cholesterol 200-239 mg/dL High cholesterol >=240 mg/dL Recommendations of the NCEP Adult Treatment Panel for the following risk-cutoff thresholds for the [place] population. Performed By: #### L 500.4050, L100.0100, L501.9520, L506.0400, L500.4100, L501.5200 #### [facility] [address] [place], [place], [address] (079) Cholesterol in HDL [Mass/Vol] 47 mg/dL Normal [facility] Comment on above: Order Comment: Order Date: 01/04/25 Order Info: 07 - CMP Order Info: [id number] - LIPID Order Info: [id number] - MG Order Info: [id number] - TSH Order Info: 3024-02 T4F Result Comment: Rachel onal Cholesterol Education Program (NCEP) guidelines: <40 mg/dL: Low HDL-cholesterol (major risk factor for CHD) >= 60 mg/dL: High HDL-cholesterol (negative risk factor for CHD) HDL-cholesterol is affected by a number of factors, e.g. smoking, exercise, hormones, sex and age. Performed By: #### L 500.4050, L100.0100, L501.9520, L506.0400, L500.4100, L501.5200 #### [facility] [address] [place], [address] Cholesterol in LDL [Mass/Vol] 46 mg/dL Normal [facility] Comment on above: Order Comment: Order Date: 01/04/25 Order Info: 86-1 - CMP Order Info: [id number] - LIPID Order Info: [id number] - MG Order Info: 3016-3 - TSH Order Info: 7 - T4F Result Comment: Bord gilitt=178-988 mg/dL Higher Ybcu=924 mg/dL or greater Performed By: #### L 500.4050, L100.0100, L501.9520, L506.0400, L500.4100, L501.5200 #### [facility] [address] [place], [address] Cholesterol in VLDL [Mass/Vol] 27 mg/dL Normal 5-40 [facility] Comment on above: Order Comment: Order Date: 01/04/25 Order Info: 785- - CMP Order Info: [id number] - LIPID Order Info: [id number] - MG Order Info: 3016-3 - TSH Order Info: 7 - T4F Performed By: #### L 500.4050, L100.0100, L501.9520, L506.0400, L500.4100, L501.5200 #### [facility] [address] [place], [address] Triglyceride [Mass/Vol] 133 mg/dL Normal [facility] Comment on above: Order Comment: Order Date: 01/04/25 Order Info: 0786-1 - CMP Order Info: [id number] - LIPID Order Info: [id number] - MG Order Info: 3016-3 - TSH Order Info: 3024-7 - T4F Result Comment: The drugs N-Acetylcysteine and Metamizole may falsely depress this assay. Normal range: <150 mg/dL Borderline High: 150-199 mg/dL High: 200-499 mg/dL Very High: >500 mg/dL Performed By: #### L 500.4050, L100.0100, L501.9520, L506.0400, L500.4100, L501.5200 #### [facility] [address] [place], [place], [address] MCV (mean corpuscular volume ) determinationOrdered By: Janey Sanders on 01-04-2025 MCV (RBC) [Entitic vol] 91.7 fL 80-94 [facility] Magnesiumon 01-04-2025 Magnesium [Mass/Vol] 2.4 mg/dL High 1.5-2.2 [facility] Comment on above: Order Comment: Order Date: 01/04/25 Order Info: 0786-1 - CMP Order Info: [id number] - LIPID Order Info: [id number] - MG Order Info: 3016-3 - TSH Order Info: 3024-7 - T4F Performed By: #### L 500.4050, L100.0100, L501.9520, L506.0400, L500.4100, L501.5200 #### [facility] [address] [place], [place], [address] Magnesium measurement (mass/ volume)Ordered By: Janey Sanders on 01-04-2025 Magnesium (Unsp spec) [Mass/Vol] 2.4 mg/dL High 1.5-2.2 [facility] Mean corpuscular hemoglobin (MCH) determinationOrdered By: Janey Sanders on 01-04-2025 MCH (RBC) [Entitic mass] 29.3 pg 27.0-32.0 [facility] Mean corpuscular hemoglobin concentration (MCHC) determinationOrdered By: Janey Sanders on 01-04-2025 MCHC (RBC) [Mass/Vol] 31.9 g/dL Low 32-36 [facility] Mean platelet volume determi nationOrdered By: Janey Sanders on 01-04-2025 Platelet mean volume (Bld) [Entitic vol] 9.4 fL 6.2-12.0 [facility] Monocyte percentageOrdered B y: Janey Sanders on 01-04-2025 Monocytes/100 WBC (Bld) 7.6 % 0-10 [facility] Neutrophil percentageOrdered By: Janey Sanders on 01-04-2025 Neutrophils/100 WBC (Bld) 84.4 % High 47-70 [facility] No Panel InformationOrdered By: Janey Sanders on 01-04-2025 Unsaturated Iron Binding Capacity 179 ug/dL Low 228-428 [facility] Nucleated red blood cell per centageOrdered By: Janey Sanders on 01-04-2025 Nucleated RBC/100 WBC (Bld) [Ratio] 0 % 0-5 [facility] Platelet countOrdered By: Neha Sanders on 01-04-2025 Platelets (Bld) [#/Vol] 282 10*3/uL 150-450 [facility] Potassium measurement (mass/ volume)Ordered By: Janey Sanders on 01-04-2025 Potassium (Unsp spec) [Mass/Vol] 4.8 mmol/L 3.3-5.1 [facility] RBC Auto (Bld) [#/Vol]Ordere d By: Janey Sanders on 01-04-2025 RBC (Bld) [#/Vol] 3.86 10*6/uL Low 4.6-6.2 [facility] Screening total cholesterol/ high density lipoprotein (HDL) cholesterol ratioOrdered By: Janey Sanders on 01-04-2025 Cholesterol.total/Choles terol in HDL [Mass ratio] 2.55 {ratio} [facility] Serum creatinine measurement (mass/volume)Ordered By: Janey Sanders on 01-04-2025 Creatinine [Mass/Vol] 1.11 mg/dL 0.70-1.20 [facility] Serum globulin measurementOr dered By: Janey Sanders on 01-04-2025 Globulin (S) [Mass/Vol] 2.8 g/dL 2.2-4.2 [facility] Serum glucose measurement (m ass/volume)Ordered By: Janey Sanders on 01-04-2025 Glucose [Mass/Vol] 120 mg/dL High 70-99 [facility] Serum or plasma alanine singletary otransferase (ALT) measurementOrdered By: Janey Sanders on 01-04-2025 ALT [Catalytic activity/Vol] 23 U/L <47 [facility] Serum or plasma albumin andrez urement (mass/volume)Ordered By: Janey Sanders on 01-04-2025 Albumin [Mass/Vol] 3.5 g/dL 3.4-4.8 [facility] Serum or plasma albumin/glob ulin mass ratioOrdered By: Janey Sanders on 01-04-2025 Albumin/Globulin [Mass ratio] 1.3 {ratio} 0.9-2.4 [facility] Serum or plasma alkaline shane sphatase measurementOrdered By: Janey Sanders on 01-04-2025 ALP [Catalytic activity/Vol] 72 U/L 40-129 [facility] Serum or plasma calcium andrez urement (mass/volume)Ordered By: Janey Sanders on 01-04-2025 Calcium [Mass/Vol] 9.1 mg/dL 7.6-11.0 [facility] Serum or plasma cholesterol in HDL measurement (mass/volume)Ordered By: Janey Sanders on 01-04-2025 Cholesterol in HDL [Mass/Vol] 47 mg/dL >40 [facility] Comment on above: National Cholesterol Education Program (NCEP) guidelines:<40 mg/dL: Low HDL-cholesterol (major risk factor for CHD)>= 60 mg/dL: High HDL-cholesterol (negative risk factor for CHD)HDL-cholesterol is affected by a number of factors, e.g. smoking, exercise, hormones, sex and age. Serum or plasma cholesterol measurement (mass/volume)Ordered By: Janey Sanders on 01-04-2025 Cholesterol [Mass/Vol] 119 mg/dL <201 [facility] Comment on above: Cholesterol level, D esirable <200 mg/dLBorderline high cholesterol 200-239 mg/dLHigh cholesterol >=240 mg/dLRecommendations of the NCEP Adult Treatment Panel for the following risk-cutoff thresholds for the [place] population. Serum or plasma iron saturat ion measurement (mass fraction)Ordered By: Janey Sanders on 01-04-2025 Iron saturation [Mass fraction] 22.5 % 9-55 [facility] Comment on above: Previous reported re sult: 23.0 %Edited by: NAYA on 01/05/25:1058 AMENDED REPORT 01/05/25 1058 IRON SATURATION previously reported as: 23.0 % Serum or plasma thyroperoxid ase antibody assay (units/volume)Ordered By: Janey Sanders on 01-04-2025 TPO Ab Qn 23 [IU]/mL 0-34 [facility] Comment on above: Performed at: [place] [id number] Director: Apollo Mcgill PhD, Phone: [phone] Serum or plasma urea nitroge n measurement (mass/volume)Ordered By: Janey Sanders on 01-04-2025 Urea nitrogen [Mass/Vol] 43 mg/dL High 4-19 [facility] Sodium levelOrdered By: Janey Sanders on 01-04-2025 Sodium [Moles/Vol] 137 mmol/L 133-145 [facility] T4 Free Directon 01-04-2025 T4 FREE DIRECT 1.10 ng/dL Normal 0.76-1.46 [facility] Comment on above: Order Comment: Order Date: 01/04/25 Order Info: [id number] - CMP Order Info: [id number] - LIPID Order Info: [id number] - MG Order Info: [id number] - TSH Order Info: [id number] - T4F Performed By: #### L 500.4050, L100.0100, L501.9520, L506.0400, L500.4100, L501.5200 #### [facility] Laboratory [address] [place] [address]. [place], [place], [address] T4 freeOrdered By: Janey munguia on 01-04-2025 Free T4 [Mass/Vol] 1.10 ng/dL 0.76-1.46 [facility] TSH DL <= 0.005 mIU/L QnOrde red By: Janey Sanders on 01-04-2025 TSH Qn 0.362 uIU/mL 0.300-4.200 [facility] Thyroid Stim Hormone (TSH)on 01-04-2025 TSH 0.362 uIU/mL Normal 0.300-4.200 [facility] Comment on above: Order Comment: Order Date: 01/04/25 Order Info: [id number] CMP Order Info: - LIPID Order Info: [id number] - MG Order Info: 3 - TSH Order Info: [id number] - T4F Performed By: #### L 500.4050, L100.0100, L501.9520, L506.0400, L500.4100, L501.5200 #### [facility] [address] [place], [address] Total proteinOrdered By: Hunter Sanders on 01-04-2025 Protein [Mass/Vol] 6.3 g/dL 5.9-8.4 [facility] Triglycerides measurementOrd ered By: Janey Sanders on 01-04-2025 Triglyceride [Mass/Vol] 133 mg/dL <199 [facility] Comment on above: The drugs N-Acetylcy steine and Metamizole may falsely depress this assay. Normal range: <150 mg/dLBorderline High: 150-199 mg/dLHigh: 200-499 mg/dLVery High: >500 mg/dL Vitamin B12on 01-04-2025 Cobalamin (Vitamin B12) [Mass/Vol] 490 pg/mL Normal 180-914 [facility] Comment on above: Order Comment: Order Date: 01/04/25 Order Info: [id number] - CMP Order Info: [id number] - LIPID Order Info: [id number] - MG Order Info: [id number] - TSH Order Info: [id number] - T4F Performed By: #### L 500.4050, L100.0100, L501.9520, L506.0400, L500.4100, L501.5200 #### [facility] [address] [place], [place], [address] Vitamin B12 ser/plasOrdered By: Janey Sanders on 01-04-2025 Cobalamin (Vitamin B12) [Mass/Vol] 490 pg/mL 180-914 [facility] Vitamin D,25 Hydroxyon 01-04 Vitamin D 25-OH 23.0 ng/mL Low 30-100 [facility] Comment on above: Order Comment: Order Date: 01/04/25 Order Info: [id number] - CMP Order Info: [id number] - LIPID Order Info: [id number] - MG Order Info: [id number] - TSH Order Info: [id number] - T4F Result Comment: Keshia min D Status Deficiency: <20 ng/mL (50nmol/L) Insufficiency: 20-30 ng/mL (50-75 nmol/L) Sufficiency: 30-100 ng/mL (75-250 nmol/L) Toxicity: >100 ng/mL (>250 nmol/L) Performed By: #### L 500.4050, L100.0100, L501.9520, L506.0400, L500.4100, L501.5200 #### [facility] [address] [place], [address] White blood cell (WBC) count Ordered By: Janey Sanders on 01-04-2025 WBC (Bld) [#/Vol] 11.0 10*3/uL 4.4-11.0 [facility] .Auto Diffon 12-27-2024 Basophil, Absolute 0.0 10 3/mcL Normal 0.0-0.3 [facility] Comment on above: Performed By: #### A MOHINDER, CBC, BMP, ADIFF, GFR #### [address] [address] Basophils/100 WBC (Bld) 0.2 % Normal 0.0-2.5 [facility] Comment on above: Performed By: #### A MOHINDER, CBC, BMP, ADIFF, GFR #### [address] [address] Eosinophil, Absolute 0.0 10 3/mcL Normal 0.0-0.7 [facility] Comment on above: Performed By: #### A MOHINDER, CBC, BMP, ADIFF, GFR #### [address] [place], [place] [address] Eosinophils/100 WBC (Bld) 0.0 % Normal 0.0-6.0 [facility] Comment on above: Performed By: #### A MOHINDER, CBC, BMP, ADIFF, GFR #### [address] [address] Lymphocyte, Absolute 0.5 10 3/mcL Low 0.9-4.3 [facility] Comment on above: Performed By: #### A MOHINDER, CBC, BMP, ADIFF, GFR #### [address] [address] Lymphocytes/100 WBC (Bld) 3.2 % Low 20.0-40.0 [facility] Comment on above: Performed By: #### A MOHINDER, CBC, BMP, ADIFF, GFR #### [address] [address] Monocyte, Absolute 1.0 10 3/mcL Normal 0.1-1.4 [facility] Comment on above: Performed By: #### A MOHINDER, CBC, BMP, ADIFF, GFR #### [address] [address] Monocytes/100 WBC (Bld) 6.8 % Normal 2.0-13.0 [facility] Comment on above: Performed By: #### A MOHINDER, CBC, BMP, ADIFF, GFR #### [address] [address] Neutrophils/100 WBC (Bld) 89.8 % High 50.0-75.0 [facility] Comment on above: Performed By: #### A MOHINDER, CBC, BMP, ADIFF, GFR #### [address] [address] .GFRon 12-27-2024 Estimated Glomerular Filtration Rate 66 ml/min/1.73sqm Normal [facility] Comment on above: Result Comment: Stages [...] A MOHINDER, CBC, BMP, ADIFF, GFR #### [address] [address] .NEUABSon 12-27-2024 Neutrophil, Absolute 13.2 10 3/mcL High 2.3-8.1 [facility] Comment on above: Performed By: #### A MOHINDER, CBC, BMP, ADIFF, GFR #### [address] [address] BMPon 12-27-2024 BUN/Creatinine Ratio 46 ratio High 7-27 [facility] Comment on above: Performed By: #### A MOHINDER, CBC, BMP, ADIFF, GFR #### [address] [address] Calcium [Mass/Vol] 8.7 mg/dL Normal 8.4-10.2 [facility] Comment on above: Performed By: #### A MOHINDER, CBC, BMP, ADIFF, GFR #### [address] [address] Chloride [Moles/Vol] 102 mmol/L Normal 98-107 [facility] Comment on above: Performed By: #### A MOHINDER, CBC, BMP, ADIFF, GFR #### [address] [address] CO2 [Moles/Vol] 30 mmol/L Normal 23-31 [facility] Comment on above: Performed By: #### A MOHINDER, CBC, BMP, ADIFF, GFR #### [address] [address] Creatinine [Mass/Vol] 1.11 mg/dL Normal 0.67-1.17 [facility] Comment on above: Performed By: #### A MOHINDER, CBC, BMP, ADIFF, GFR #### [address] [address] Electrolyte Balance 4.0 mEq/L Normal 4.0-15.0 [facility] Comment on above: Performed By: #### A MOHINDER, CBC, BMP, ADIFF, GFR #### [address] [address] Glucose [Mass/Vol] 214 mg/dL High 83-110 [facility] Comment on above: Performed By: #### A MOHINDER, CBC, BMP, ADIFF, GFR #### [address] [address] Potassium [Moles/Vol] 5.6 mmol/L High 3.5-5.1 [facility] Comment on above: Performed By: #### A MOHINDER, CBC, BMP, ADIFF, GFR #### [place] [address] Sodium [Moles/Vol] 136 mmol/L Normal 136-145 [facility] Comment on above: Performed By: #### A MOHINDER, CBC, BMP, ADIFF, GFR #### [place] [address] Urea nitrogen [Mass/Vol] 51 mg/dL High 7-18 [facility] Comment on above: Performed By: #### A MOHINDER, CBC, BMP, ADIFF, GFR #### [place] [id number] CBCon 12-27-2024 Erythrocyte distribution width (RBC) [Ratio] 14.4 % Normal 11.5-15.5 [facility] Comment on above: Performed By: #### A MOHINDER, CBC, BMP, ADIFF, GFR #### [place] [id number] Hematocrit (Bld) [Volume fraction] 36.4 % Low 40.0-52.0 [facility] Comment on above: Performed By: #### A MOHINDER, CBC, BMP, ADIFF, GFR #### [address] [address] Hgb 12.3 G/dL Low 13.0-17.5 [facility] Comment on above: Performed By: #### A MOHINDER, CBC, BMP, ADIFF, GFR #### [address] [address] MCH (RBC) [Entitic mass] 29.3 pg Normal 27.0-33.0 [facility] Comment on above: Performed By: #### A MOHINDER, CBC, BMP, ADIFF, GFR #### [place] [address] MCHC 33.8 G/dL Normal 32.0-36.0 [facility] Comment on above: Performed By: #### A MOHINDER, CBC, BMP, ADIFF, GFR #### [address] [address] MCV (RBC) [Entitic vol] 86.9 fL Normal 81.0-100.0 [facility] Comment on above: Performed By: #### A MOHINDER, CBC, BMP, ADIFF, GFR #### [address] [address] Platelet 177 10 3/mcL Normal 150-450 [facility] Comment on above: Performed By: #### A MOHINDER, CBC, BMP, ADIFF, GFR #### [address] [address] Platelet mean volume (Bld) [Entitic vol] 7.8 fL Normal 6.4-10.5 [facility] Comment on above: Performed By: #### A MOHINDER, CBC, BMP, ADIFF, GFR #### [address] [address] RBC 4.19 10 6/mcL Low 4.50-6.00 [facility] Comment on above: Performed By: #### A MOHINDER, CBC, BMP, ADIFF, GFR #### [address] [address] WBC 14.7 10 3/mcL High 4.5-10.8 [facility] Comment on above: Performed By: #### A MOHINDER, CBC, BMP, ADIFF, GFR #### [address] [address] KOrdered By: SYSTEM SYSTEM o n 12-27-2024 Potassium [Moles/Vol] 5.3 mmol/L High 3.5-5.1 AO [facility] SS Comment on above: Performed By: #### K #### [place] [id number] LABORATORYOrdered By: Louisa Turner on 12-27-2024 Blood Glucose Testing Reason Routine (12/27/24 11:44 AM) [facility] Work Phone: Glucose [Mass/Vol] 137 mg/dL High 82 - 115 mg/dL [facility] Work Phone: Blood Glucose Testing Reason Routine (12/27/24 8:21 AM) [facility] Work Phone: Glucose [Mass/Vol] 154 mg/dL High 82 - 115 mg/dL [facility] Work Phone: LABORATORYOrdered By: SYSTEM SYSTEM [...] 12-26-2024 ABO/Rh Interp Positive Invalid Interpretation Code [facility] Comment on above: Performed By: #### A SARAH ABSGEL #### [address] [address] ABS (Gel)on 12-26-2024 ABSC Interp (Gel) Negative Normal [facility] Comment on above: Performed By: #### Judith SMITH ABSGEL #### [address] [address] LABORATORYOrdered By: Pablo Mars on 12-26-2024 Blood Glucose Testing Reason Routine (12/26/24 9:01 PM) [facility] Work Phone: Glucose [Mass/Vol] 199 mg/dL High 82 - 115 mg/dL [facility] Work Phone: LABORATORYOrdered By: Angela Gonzalez [...] not reported on this accession number. Normal [facility] XR HIP RIGHT W/PELVIS 4 VIEW [...] 9:42:17 AM Ordering Provider: HERSON HE Normal [facility] ALBon 12-14-2024 Albumin Level 3.9 G/dL Normal 3.4-4.8 [facility] Comment on above: Performed By: #### G FR, ALB, BMP ####[facility] [place], [place] [address] .Auto Diffon 12-13-2024 Basophil, Absolute 0.0 10 3/mcL Normal 0.0-0.3 [facility] Comment on above: Performed By: #### A BSGEL ABOGEL, CBC, ADIFF, ANEU ####[address] [place], [place] [address] Basophils/100 WBC (Bld) 0.5 % Normal 0.0-2.5 [facility] Comment on above: Performed By: #### A BSGEL, ABOGEL, CBC, ADIFF, ANEU ####[address] [place], [place] [address] Eosinophil, Absolute 0.2 10 3/mcL Normal 0.0-0.7 [facility] Comment on above: Performed By: #### A BSGEL, ABOGEL, CBC, ADIFF, ANEU ####[address] [place], [place] [address] Eosinophils/100 WBC (Bld) 2.6 % Normal 0.0-6.0 [facility] Comment on above: Performed By: #### A BSGEL, ABOGEL, CBC, ADIFF, ANEU ####[address] [place], [place] [address] Lymphocyte, Absolute 1.0 10 3/mcL Normal 0.9-4.3 [facility] Comment on above: Performed By: #### A BSGEL, ABOGEL, CBC, ADIFF, ANEU ####[address] [place], [place] [address] Lymphocytes/100 WBC (Bld) 14.2 % Low 20.0-40.0 [facility] Comment on above: Performed By: #### A BSGEL, ABOGEL, CBC, ADIFF, ANEU ####[address] [place], [place] [address] Monocyte, Absolute 0.7 10 3/mcL Normal 0.1-1.4 [facility] Comment on above: Performed By: #### A BSGEL, ABOGEL, CBC, ADIFF, ANEU ####[address] [place], [place] [address] Monocytes/100 WBC (Bld) 9.0 % Normal 2.0-13.0 [facility] Comment on above: Performed By: #### A BSGEL, ABOGEL, CBC, ADIFF, ANEU ####[address] [place], [place] [address] Neutrophils/100 WBC (Bld) 73.7 % Normal 50.0-75.0 [facility] Comment on above: Performed By: #### A BSGEL, ABOGEL, CBC, ADIFF, ANEU ####[address] [place], [place] [address] .GFRon 12-13-2024 Estimated Glomerular Filtration Rate 66 ml/min/1.73sqm Normal [facility] Comment on above: Result Comment: Stages [...] Performed By: #### G FR, ALB, BMP ####[address] [place], [place] [address] .NEUABSon 12-13-2024 Neutrophil, Absolute 5.3 10 3/mcL Normal 2.3-8.1 [facility] Comment on above: Performed By: #### A BSGEL, ABOGEL, CBC, ADIFF, ANEU ####[address] [place], [place] [address] ABO/Rh (Gel)on 12-13-2024 ABO/Rh Interp Positive Invalid Interpretation Code [facility] Comment on above: Performed By: #### A BSGEL, ABOGEL, CBC, ADIFF, ANEU ####[address] [place], [place] [address] ABS (Gel)on 12-13-2024 ABSC Interp (Gel) Negative Normal [facility] Comment on above: Performed By: #### A BSGEL, ABOGEL, CBC, ADIFF, ANEU ####[address] [place], [place] [address] BMPon 12-13-2024 BUN/Creatinine Ratio 43 ratio High 7-27 [facility] Comment on above: Performed By: #### G FR, ALB, BMP ####[address] [place], [place] [address] Calcium [Mass/Vol] 9.5 mg/dL Normal 8.4-10.2 [facility] Comment on above: Performed By: #### Heather SMITH ALB, BMP ####[address] [place], [place] [address] Chloride [Moles/Vol] 106 mmol/L Normal 98-107 [facility] Comment on above: Performed By: #### Heather SMITH ALB, BMP ####[address] [place], [place] [address] CO2 [Moles/Vol] 27 mmol/L Normal 23-31 [facility] Comment on above: Performed By: #### Heather SMITH ALB, BMP ####[address] [place], [place] [address] Creatinine [Mass/Vol] 1.11 mg/dL Normal 0.67-1.17 [facility] Comment on above: Performed By: #### Heather SMITH ALB, BMP ####[address] [place], [place] [address] Electrolyte Balance 7.0 mEq/L Normal 4.0-15.0 [facility] Comment on above: Performed By: #### Heather SMITH ALB, BMP ####[address] [place], [place] [address] Glucose [Mass/Vol] 109 mg/dL Normal 83-110 [facility] Comment on above: Performed By: #### Heather SMITH ALB, BMP ####[address] [place], [place] [address] Potassium [Moles/Vol] 4.9 mmol/L Normal 3.5-5.1 [facility] Comment on above: Performed By: #### Heather FR, ALB, BMP ####[address] [place], [place] [address] Sodium [Moles/Vol] 140 mmol/L Normal 136-145 [facility] Comment on above: Performed By: #### Heather FR ALB, BMP ####[address] [place], [place] [address] Urea nitrogen [Mass/Vol] 48 mg/dL High 7-18 [facility] Comment on above: Performed By: #### G FR, ALB, BMP ####[address] [place], [place] [address] CBCon 12-13-2024 Erythrocyte distribution width (RBC) [Ratio] 14.6 % Normal 11.5-15.5 [facility] Comment on above: Order Comment: Pre-A dmission Testing Performed By: #### A BSGEL, ABOGEL, CBC, ADIFF, ANEU ####[address] [place], [place] [address] Hematocrit (Bld) [Volume fraction] 42.6 % Normal 40.0-52.0 [facility] Comment on above: Order Comment: Pre-A dmission Testing Performed By: #### A BSGEL, ABOGEL, CBC, ADIFF, ANEU ####[address] [place], [place] [address] Hgb 14.1 G/dL Normal 13.0-17.5 [facility] Comment on above: Order Comment: Pre-A dmission Testing Performed By: #### A BSGEL, ABOGEL, CBC, ADIFF, ANEU ####[address] [place], [place] [address] MCH (RBC) [Entitic mass] 28.9 pg Normal 27.0-33.0 [facility] Comment on above: Order Comment: Pre-A dmission Testing Performed By: #### A BSGEL, ABOGEL, CBC, ADIFF, ANEU ####[address] [place], [place] [address] MCHC 33.2 G/dL Normal 32.0-36.0 [facility] Comment on above: Order Comment: Pre-A dmission Testing Performed By: #### A BSGEL, ABOGEL, CBC, ADIFF, ANEU ####[address] [place], [place] [address] MCV (RBC) [Entitic vol] 87.1 fL Normal 81.0-100.0 [facility] Comment on above: Order Comment: Pre-A dmission Testing Performed By: #### A BSGEL, ABOGEL, CBC, ADIFF, ANEU ####[address] [place], [place] [address] Platelet 192 10 3/mcL Normal 150-450 [facility] Comment on above: Order Comment: Pre-A dmission Testing Performed By: #### A BSGEL, ABOGEL, CBC, ADIFF, ANEU ####[address] [place], [place] [address] Platelet mean volume (Bld) [Entitic vol] 7.9 fL Normal 6.4-10.5 [facility] Comment on above: Order Comment: Pre-A dmission Testing Performed By: #### A BSGEL, ABOGEL, CBC, ADIFF, ANEU ####[address] [place], [place] [address] RBC 4.88 10 6/mcL Normal 4.50-6.00 [facility] Comment on above: Order Comment: Pre-A dmission Testing Performed By: #### A BSGEL, ABOGEL, CBC, ADIFF, ANEU ####[address] [place], [place] [address] WBC 7.2 10 3/mcL Normal 4.5-10.8 [facility] Comment on above: Order Comment: Pre-A dmission Testing Performed By: #### A BSGEL, ABOGEL, CBC, ADIFF, ANEU ####[address] [place], [place] [address] LABORATORYOrdered By: Yinka Campo on 12-13-2024 ABO and Rh group Nom (Bld) Blood group O Rh(D) positive Invalid Interpretation Code AO BB Auto SS Blood group antibody screen Ql Negative ABSC (12/13/24 9:39 AM) Normal AO BB Auto SS LABORATORYOrdered By: Yo que Vos SYSTEM on 12-13-2024 Basophils (Bld) [#/Vol] 0.0 [...] 1 (12/13/24 9:39 AM) Normal Not Detected AH Auto Viro/Sero SS Comment on above: Result Comment: [place] [id number] MRSA PCR Int MRSA DNA not detecte [...] may not be reproducible. Invalid Interpretation Code AH Auto Viro/Sero SS MRSAPCRon 12-13-2024 MRSA (PCR) Not detected Normal Not Detected [facility] Comment on above: Result Comment: [place] [id number] Performed By: #### M RSAPCR ####[facility] [place] [address] MRSA PCR Int Normal [facility] Comment on above: Result Comment: MRSA [...] See Below Performed By: #### M RSAPCR ####[facility] [place] [address] Testicular with Arterial Bruno won 12-01-2024 Testicular with Arterial Flow [facility] Imaging Services [address] [place] [address] Testicular with Arterial Flow MR#: [id number] Acct: [id number] Name: LUC GANNON Rep #: [id number] : 1940 M 84 From: Mildred Paredes nd, [place] PCP: Dr. Mary Abernathy MD Status: REG CLI Study: Testicular with Arterial Flow Date of Exam: Exam# [id number] Ordering Dr: Mary Abernathy MD PROCEDURE: TESTICULAR [...] recommend evaluation with focused ultrasound. Reading Location: [facility] CC: Dr. 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 Normal [facility] Anion gap in Serum or Plasma Ordered By: Kp James on 11-24-2024 Anion gap [Moles/Vol] 9 mmol/L 5-15 [facility] BUN/creatinine ratioOrdered By: Kp James on 11-24-2024 Urea nitrogen/Creatinine [Mass ratio] 32.4 mg/mg High 10-20 [facility] Bilirubin, totalOrdered By: Kp James on 11-24-2024 Bilirubin [Mass/Vol] 0.50 mg/dL 0.00-1.30 [facility] Carbon dioxide, total [Moles /volume] in Central venous bloodOrdered By: Kp James on 11-24-2024 CO2 [Moles/Vol] 25.2 mmol/L 21.0-32.0 [facility] Chloride assayOrdered By: Candis James on 11-24-2024 Chloride [Moles/Vol] 106 mmol/L 98-108 [facility] Comprehensive Metabolic Prof ilon 11-24-2024 Albumin [Mass/Vol] 4.1 g/dL Normal 3.4-4.8 [facility] Comment on above: Performed By: #### L 500.4050, L100.0100, L501.9520, L506.0400, L500.4100, L501.5200 #### [facility] [address] [place], [address] Albumin/Globulin [Mass ratio] 1.6 {ratio} Normal 0.9-2.4 [facility] Comment on above: Performed By: #### L 500.4050, L100.0100, L501.9520, L506.0400, L500.4100, L501.5200 #### [facility] [address] [place], [address] ALK PHOS 87 U/L Normal 40-129 [facility] Comment on above: Performed By: #### L 500.4050, L100.0100, L501.9520, L506.0400, L500.4100, L501.5200 #### [facility] [address] [place], [address] ALT [Catalytic activity/Vol] 19 U/L Normal <=46 [facility] Comment on above: Performed By: #### L 500.4050, L100.0100, L501.9520, L506.0400, L500.4100, L501.5200 #### [facility] [address] [place], [address] AST [Catalytic activity/Vol] 18 U/L Normal <=37 [facility] Comment on above: Performed By: #### L 500.4050, L100.0100, L501.9520, L506.0400, L500.4100, L501.5200 #### [facility] [address] [place], [address] Bilirubin [Mass/Vol] 0.50 mg/dL Normal 0.00-1.30 [facility] Comment on above: Performed By: #### L 500.4050, L100.0100, L501.9520, L506.0400, L500.4100, L501.5200 #### [facility] [address] [place], [address] BUN/CRE 32.4 RATIO High 10-20 [facility] Comment on above: Performed By: #### L 500.4050, L100.0100, L501.9520, L506.0400, L500.4100, L501.5200 #### [facility] [address] [place], [address] Calcium [Mass/Vol] 9.4 mg/dL Normal 7.6-11.0 [facility] Comment on above: Performed By: #### L 500.4050, L100.0100, L501.9520, L506.0400, L500.4100, L501.5200 #### [facility] [address] [place], [address] Chloride [Moles/Vol] 106 mmol/L Normal 98-108 [facility] Comment on above: Performed By: #### L 500.4050, L100.0100, L501.9520, L506.0400, L500.4100, L501.5200 #### [facility] [address] [place], [address] CO2 [Moles/Vol] 25.2 mmol/L Normal 21.0-32.0 [facility] Comment on above: Performed By: #### L 500.4050, L100.0100, L501.9520, L506.0400, L500.4100, L501.5200 #### [facility] [address] [place], [address] Creatinine [Mass/Vol] 1.31 mg/dL High 0.70-1.20 [facility] Comment on above: Performed By: #### L 500.4050, L100.0100, L501.9520, L506.0400, L500.4100, L501.5200 #### [facility] [address] [place], [address] GAP 9 Normal 5-15 [facility] Comment on above: Performed By: #### L 500.4050, L100.0100, L501.9520, L506.0400, L500.4100, L501.5200 #### [facility] [address] [place], [address] GFR/1.73 sq M.predicted among non-blacks MDRD (S/P/Bld) [Vol rate/Area] 54 mL/min/{1.73_m2} Low >60 [facility] Comment on above: Result Comment: mL/m in/1.73m2 CKD-EPI Creatinine Equation (2020) Performed By: #### L 500.4050, L100.0100, L501.9520, L506.0400, L500.4100, L501.5200 #### [facility] [address] [place], [address] Globulin (S) [Mass/Vol] 2.6 g/dL Normal 2.2-4.2 [facility] Comment on above: Performed By: #### L 500.4050, L100.0100, L501.9520, L506.0400, L500.4100, L501.5200 #### [facility] [address] [place], [address] Glucose [Mass/Vol] 125 mg/dL High 70-99 [facility] Comment on above: Performed By: #### L 500.4050, L100.0100, L501.9520, L506.0400, L500.4100, L501.5200 #### [facility] [address] [place], [address] Potassium [Moles/Vol] 5.1 mmol/L Normal 3.3-5.1 [facility] Comment on above: Performed By: #### L 500.4050, L100.0100, L501.9520, L506.0400, L500.4100, L501.5200 #### [facility] [address] [place], [address] Sodium [Moles/Vol] 141 mmol/L Normal 133-145 [facility] Comment on above: Performed By: #### L 500.4050, L100.0100, L501.9520, L506.0400, L500.4100, L501.5200 #### [facility] [address] [place], [address] T PROT 6.7 g/dL Normal 5.9-8.4 [facility] Comment on above: Performed By: #### L 500.4050, L100.0100, L501.9520, L506.0400, L500.4100, L501.5200 #### [facility] [address] [place], [address] Urea nitrogen [Mass/Vol] 43 mg/dL High 4-19 [facility] Comment on above: Performed By: #### L 500.4050, L100.0100, L501.9520, L506.0400, L500.4100, L501.5200 #### [facility] [address] [place], [address] Free T3on 11-24-2024 Free T3 [Mass/Vol] 2.9 pg/mL Normal 2.18-3.98 [facility] Comment on above: Performed By: #### L 500.4050, L100.0100, L501.9520, L506.0400, L500.4100, L501.5200 #### [facility] [address] [place], [address] Free Q1Skytyzh By: Kp juarez on 11-24-2024 Free T3 [Mass/Vol] 2.9 pg/mL 2.18-3.98 [facility] Free Triiodothyronine (T3) pg/dL 2.9 pg/mL 2.18-3.98 [facility] GFR/1.73 sq M.predicted france g non-blacks MDRD (S/P/Bld) [Vol rate/Area]Ordered By: Kp James on 11-24-2024 Estimated GFR (MDRD) Non-Af Amer 54 Low >60 [facility] Comment on above: mL/min/1.73m2 CKD-EP I Creatinine Equation (2020) Glomerular filtration rate ( GFR) estimation/1.73 sq m using serum, plasma, or whole bOrdered By: Kp James on 11-24-2024 GFR/1.73 sq M.predicted among non-blacks MDRD (S/P/Bld) [Vol rate/Area] 54 mL/min/{1.73_m2} Low >60 [facility] Comment on above: mL/min/1.73m2 CKD-EP I Creatinine Equation (2020) Hemoglobin A1con 11-24-2024 HbA1c (Bld) [Mass fraction] 6.9 % Normal <=5.6 [facility] Comment on above: Performed By: #### L 500.4050, L100.0100, L501.9520, L506.0400, L500.4100, L501.5200 #### [facility] [place], [address] Hemoglobin A1c percentageOrd ered By: Kp James on 11-24-2024 HbA1c (Bld) [Mass fraction] 6.9 % >5.7 [facility] - Chemistry and C hemistry - challengeOrdered By: Kp James on 11-24-2024 AST [Catalytic activity/Vol] 18 U/L <38 [facility] Potassium (Unsp spec) [Mass/ Vol]Ordered By: Kp James on 11-24-2024 Potassium [Moles/Vol] 5.1 mmol/L 3.3-5.1 [facility] Potassium measurement (mass/ volume)Ordered By: Kp James on 11-24-2024 Potassium (Unsp spec) [Mass/Vol] 5.1 mmol/L 3.3-5.1 [facility] Serum creatinine measurement (mass/volume)Ordered By: Kp James on 11-24-2024 Creatinine [Mass/Vol] 1.31 mg/dL High 0.70-1.20 [facility] Serum globulin measurementOr dered By: Kp James on 11-24-2024 Globulin (S) [Mass/Vol] 2.6 g/dL 2.2-4.2 [facility] Serum glucose measurement (m ass/volume)Ordered By: Kp James on 11-24-2024 Glucose [Mass/Vol] 125 mg/dL High 70-99 [facility] Serum or plasma alanine singletary otransferase (ALT) measurementOrdered By: Kp James on 11-24-2024 ALT [Catalytic activity/Vol] 19 U/L <47 [facility] Serum or plasma albumin andrez urement (mass/volume)Ordered By: Kp James on 11-24-2024 Albumin [Mass/Vol] 4.1 g/dL 3.4-4.8 [facility] Serum or plasma albumin/glob ulin mass ratioOrdered By: Kp James on 11-24-2024 Albumin/Globulin [Mass ratio] 1.6 {ratio} 0.9-2.4 [facility] Serum or plasma alkaline shane sphatase measurementOrdered By: Kp James on 11-24-2024 ALP [Catalytic activity/Vol] 87 U/L 40-129 [facility] Serum or plasma calcium andrez urement (mass/volume)Ordered By: Kp James on 11-24-2024 Calcium [Mass/Vol] 9.4 mg/dL 7.6-11.0 [facility] Serum or plasma urea nitroge n measurement (mass/volume)Ordered By: Kp James on 11-24-2024 Urea nitrogen [Mass/Vol] 43 mg/dL High 4-19 [facility] Sodium levelOrdered By: Christiano James on 11-24-2024 Sodium [Moles/Vol] 141 mmol/L 133-145 [facility] T4 Free Directon 11-24-2024 T4 FREE DIRECT 1.00 ng/dL Normal 0.76-1.46 [facility] Comment on above: Performed By: #### L 500.4050, L100.0100, L501.9520, L506.0400, L500.4100, L501.5200 #### [facility] [place], [address] T4 freeOrdered By: Kp juarez on 11-24-2024 Free T4 [Mass/Vol] 1.00 ng/dL 0.76-1.46 [facility] TSH DL <= 0.005 mIU/L QnOrde red By: Kp Erika on 11-24-2024 Thyroid Stimulating Hormone (TSH) 0.241 uIU/mL Low 0.300-4.200 [facility] TSH Qn 0.241 uIU/mL Low 0.300-4.200 [facility] Thyroid Stim Hormone (TSH)on 11-24-2024 TSH 0.241 uIU/mL Low 0.300-4.200 [facility] Comment on above: Performed By: #### L 500.4050, L100.0100, L501.9520, L506.0400, L500.4100, L501.5200 #### [facility] [address] [place], [place], [address] Total proteinOrdered By: Dewayne James on 11-24-2024 Protein [Mass/Vol] 6.7 g/dL 5.9-8.4 [facility] Hips B/L min 2 views w/ Pelv adele 11-07-2024 Hips B/L min 2 views w/ Pelvis [facility] Imaging Services [address] [place], [place] [address] Hips B/L min 2 views w/ Pelvis MR#: [id number] Acct: [id number] Name: LUC GANNON Rep #: [id number] : 1940 M 84 From: Vinod Recinos MD PCP: Dr. Mary Abernathy MD Status: REG CLI Study: Hips B/L min 2 views w/ Pelvis Date of Exam: 0 11/07/24 Exam# [id number] Ordering Dr: Mary Abernathy MD EXAM: XR [...] 2. Degenerative changes as above. Reading Location: [facility] CC: Dr. 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 Pedro Segura MD ---- Specimen: [id number] Received: 07/11/24 Status: AGUILA Kevin Num: [id number] Spec Type: Fluid Subm Dr: Dr. Pedro Segura MD HEADER OPERATION: Fine needle aspiration of thyroid nodules PRE-OP DIAGNOSIS: Thyroid nodules TISSUE SUBMITTED: A- Right thyroid nodule fluid, B- Right thyroid nodule slides, C- Isthmic nodule fluid, D- Isthmus nodule slides ---- DIAGNOSIS CYTOLOGY A. Right thyroid nodule fluid, fine needle aspiration (cytospin and cellblock): Consistent with a benign follicular nodule, [place] Category II. B. Right thyroid nodule, fine needle aspiration (smears): Consistent with a benign follicular nodule, [place] Category II. C. Isthmic nodule fluid, fine needle aspiration (cytospin and cellblock): Consistent with a benign follicular nodule, [place] Category II. D. Isthmus nodule, fine needle aspiration (smears): Consistent with a benign follicular nodule, [place] Category II. FA.mr 07/12/2024 COMMENT Material is [...] requisition as Isthmic nodule. Submitted for staining. 07/11/2024 TC:? ---- Patient Age/Sex Location Account Attending Physician ---- LUC GANNON 83/M LABSPEC [id number] Dr. Pedro Segura MD ---- CPT: 81470p8,80729k7 Signed (signature on file) Dr. Bruno Hebert MD 07/12/24 1303 ---- Normal [facility] Comment on above: Performed By: #### L 500.4050, L100.0100, L501.9520, L506.0400, L500.4100, L501.5200 #### [facility] [address] [place], [place], [id number] Surgery Visit Reporton 07-10 Surgery Visit Report [facility] [address] [place] [address] OFFICE VISIT Date of Service: 07/10/24 MR#: [id number] Acct: [id number] Name: LUC GANNON Rep #: [id number] : 1940 Provider: Dr. Pedro todd MD Age/Sex: 83/M Location: [facility] Status: Signed Intake Vital Signs 11/29/23 07:26 Height 5 ft 11 in Intake Visit Reasons: THYROID BIOPSY Chief Complaint: thyroid biopsy Is patient in pain?: No Allergies Penicillins Allergy (Verified 06/07/24 08:19) Rash Have you fallen in the past year?: No PFSH Medical History Thyroid nodule Palpitations Crohn disease [...] biopsy was diagnostic and given the clear [place] 2 designation. He presents today for repeat biopsy given previous nondiagnostic results. 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 Normal [facility] Basic Metabolic Profile (BMP )on 06-23-2024 BUN/CRE 21.5 RATIO High 10-20 [facility] Comment on above: Performed By: #### L 501.9520, L501.9985, L501.97328, L500.2500, L506.0400 #### [facility] [address] [place], [address] CA,Total 9.5 mg/dL Normal 8.5-10.1 [facility] Comment on above: Performed By: #### L 501.9520, L501.9985, L501.17673, L500.2500, L506.0400 #### [facility] [address] [place], [address] Chloride [Moles/Vol] 108 mmol/L High 98-107 [facility] Comment on above: Performed By: #### L 501.9520, L501.9985, L501.06861, L500.2500, L506.0400 #### [facility] [address] [place], [address] CO2 [Moles/Vol] 28.0 mmol/L Normal 21.0-32.0 [facility] Comment on above: Performed By: #### L 501.9520, L501.9985, L501.16625, L500.2500, L506.0400 #### [facility] [address] [place], [address] Creatinine [Mass/Vol] 1.07 mg/dL Normal 0.70-1.30 [facility] Comment on above: Result Comment: The validity of the calculated GFR GFRAA in patients over 70 years has not been determined. Clinical correlation is essential. Performed By: #### L 501.9520, L501.9985, L501.10490, L500.2500, L506.0400 #### [facility] [address] [place], [address] EST GFR - AA 85 mL/min Normal >60 [facility] Comment on above: Result Comment: Afri can Icelandic GFR Calc Performed By: #### L 501.9520, L501.9985, L501.24561, L500.2500, L506.0400 #### [facility] [address] [place], [address] GAP 6 Normal 5-15 [facility] Comment on above: Performed By: #### L 501.9520, L501.9985, L501.91162, L500.2500, L506.0400 #### [facility] [address] [place], [address] GFR/1.73 sq M.predicted among non-blacks MDRD (S/P/Bld) [Vol rate/Area] 70 mL/min/{1.73_m2} Normal >60 [facility] Comment on above: Result Comment: Non- GFR Calc Performed By: #### L 501.9520, L501.9985, L501.67372, L500.2500, L506.0400 #### [facility] [address] [place], [address] Glucose [Mass/Vol] 149 mg/dL High 74-106 [facility] Comment on above: Result Comment: Fast ing Glucose result greater than or equal to 126 mg/dL suggests DIABETES MELLITUS per A.D.A. criteria. Performed By: #### L 501.9520, L501.9985, L501.30782, L500.2500, L506.0400 #### [facility] [address] [place], [address] Potassium [Moles/Vol] 4.8 mmol/L Normal 3.5-5.1 [facility] Comment on above: Performed By: #### L 501.9520, L501.9985, L501.94813, L500.2500, L506.0400 #### [facility] [address] [place], [address] Sodium [Moles/Vol] 142 mmol/L Normal 136-145 [facility] Comment on above: Performed By: #### L 501.9520, L501.9985, L501.36316, L500.2500, L506.0400 #### [facility] [address] [place], [address] Urea nitrogen [Mass/Vol] 23 mg/dL High 7-18 [facility] Comment on above: Performed By: #### L 501.9520, L501.9985, L501.44053, L500.2500, L506.0400 #### [facility] [address] [place], [address] Free T3on 06-23-2024 Free T3 [Mass/Vol] 2.6 pg/mL Normal 2.18-3.98 [facility] Comment on above: Performed By: #### P SSII #### [facility] [address] [place], [address] Hemoglobin A1con 06-23-2024 HbA1c (Bld) [Mass fraction] 6.5 % High 3.8-5.6 [facility] Comment on above: Result Comment: Norm al < 5.7 % Prediabetic 5.7 - 6.4 % Diabetic >or= 6.5 % Please note range changes. Performed By: #### L 501.9520, L501.9985, L501.01386, L500.2500, L506.0400 #### [facility] [address] [place], [address] T4 Free Directon 06-23-2024 T4 FREE DIRECT 0.79 ng/dL Normal 0.76-1.46 [facility] Comment on above: Performed By: #### P SSII #### [facility] [address] [place], [address] Thyroid Stim Hormone (TSH)on 06-23-2024 TSH 0.404 uIU/mL Normal 0.358-3.740 [facility] Comment on above: Performed By: #### P SSII #### [facility] [address] [place], [address] Special Stain Group IIon Special Stain Group II ----- ---- Patient Age/Sex Location Account Attending Physician ---- LUC GANNON 83/M LABSPEC [id number] Dr. Pedro Segura MD ---- Specimen: [id number] Received: 06/07/24 Status: AGUILA Brown Num: [id number] Spec Type: Fluid Subm Dr: Dr. Pedro [...] nodule, fine needle aspiration (smears): Non-diagnostic specimen, [place] Category I. See comment. C. Left mid thyroid fluid, fine needle aspiration (cytospin and cellblock): Negative for malignant cells. See comment. D. Left mid thyroid, fine needle aspiration (smears): Consistent with benign follicular cells colloid nodule with cystic changes, [place] Category II. Adequate for evaluation. E. Right posterior mid thyroid nodule, fine needle aspiration (cytospin and cellblock): Negative for malignant cells. A few clusters of benign follicular cells are noted See comment. F. Right mid thyroid nodule, fine needle aspiration (smears): Non-diagnostic specimen, [place] Category I. 06/08/2024 COMMENT A, B. The [...] Attending Physician ---- LUC GANNON 83/M LABSPEC [id number] Dr. Pedro Segura MD ---- CYTOLOGY STUDY [...] nodule. Submitted for staining. 06/07/2024 TC:5 CPT: 38539 x6, 42272 x3 Signed (signature on file) Dr. Tad Noland MD 06/08/24 1218 ---- Normal [facility] Comment on above: Performed By: #### P SSII #### [facility] [address] [place], [address] Surgery Visit Reporton 06-07 Surgery Visit Report [facility] [address] [place] [address] OFFICE VISIT Date of Service: 06/07/24 MR#: [id number] Acct: [id number] Name: LUC GANNON Rep #: [id number] : 1940 Provider: Dr. Pedro todd MD Age/Sex: 83/M Location: [facility] Status: Signed Intake Vital Signs 11/29/23 07:26 [...] of breat (more content not included)... Normal [facility] TRAB 05-17-2024 TSH Receptor Ab <1.10 Normal 0.00-1.75 [facility] Comment on above: Result Comment: Perf ormed At: [facility] [address] [id number] Ryan Perkins MD Ph:[phone] Performed By: #### F T3, FT4, 607293, TSH, BMP, GFR #### [place] [address] .GFRon 05-15-2024 GFR >60 Normal [facility] Comment on above: Result Comment: GFR [...] meters Performed By: #### F T3, FT4, 376451, TSH, BMP, GFR #### [address] [address] GFR Non- >60 Normal [facility] Comment on above: Result Comment: GFR [...] meters Performed By: #### F T3, FT4, 179716, TSH, BMP, GFR #### [address] [address] BMPon 05-15-2024 BUN/Creatinine Ratio 28.1 ratio High 10.0-22.0 [facility] Comment on above: Performed By: #### F T3, FT4, 945829, TSH, BMP, GFR #### [address] [address] Calcium [Mass/Vol] 9.4 mg/dL Normal 8.7-10.4 [facility] Comment on above: Performed By: #### F T3, FT4, 955086, TSH, BMP, GFR #### [address] [address] Chloride [Moles/Vol] 109 mmol/L Normal 98-110 [facility] Comment on above: Performed By: #### F T3, FT4, 445557, TSH, BMP, GFR #### [address] [address] CO2 [Moles/Vol] 32 mmol/L Normal 22-32 [facility] Comment on above: Performed By: #### F T3, FT4, 491629, TSH, BMP, GFR #### [address] [address] Creatinine [Mass/Vol] 0.89 mg/dL Normal 0.60-1.40 [facility] Comment on above: Result Comment: Test ing performed on OkCop[employer] analyzer using enzymatic creatinine methodology. Performed By: #### F T3, FT4, 499112, TSH, BMP, GFR #### [address] [address] Electrolyte Balance 4.0 mEq/L Normal 4.0-15.0 [facility] Comment on above: Performed By: #### F T3, FT4, 398972, TSH, BMP, GFR #### [address] [address] Glucose [Mass/Vol] 111 mg/dL Normal 82-115 [facility] Comment on above: Performed By: #### F T3, FT4, 837724, TSH, BMP, GFR #### [address] [address] Potassium [Moles/Vol] 4.5 mmol/L Normal 3.5-5.0 [facility] Comment on above: Performed By: #### F T3, FT4, 384655, TSH, BMP, GFR #### [address] [address] Sodium [Moles/Vol] 145 mmol/L Normal 136-145 [facility] Comment on above: Performed By: #### F T3, FT4, 200531, TSH, BMP, GFR #### [address] [address] Urea nitrogen [Mass/Vol] 25.0 mg/dL High 8.0-22.0 [facility] Comment on above: Performed By: #### F T3, FT4, 251667, TSH, BMP, GFR #### [facility] [address] [place] [address] FT3on 05-15-2024 Free T3 [Mass/Vol] 3.20 pg/mL Normal 2.30-4.20 [facility] Comment on above: Performed By: #### F T3, FT4, 297138, TSH, BMP, GFR #### [facility] [address] [place] [address] FT4on 05-15-2024 Free T4 [Mass/Vol] 0.95 ng/dL Normal 0.89-1.76 [facility] Comment on above: Result Comment: No te - New Reference Range in effect 20 Performed By: #### F T3, FT4, 528040, TSH, BMP, GFR #### [place] [address] TSHon 05-15-2024 TSH 0.094 mIU/mL Low 0.550-4.780 [facility] Comment on above: Order Comment: DUE N OW Result Comment: No te - New Reference Range in effect 20 Performed By: #### F T3, FT4, 502619, TSH, BMP, GFR #### [place] [address] [place] THYROID IMAGING W/UPTAKE MULTIPLEon 05-04-2024 NM [...] Consider possibility of thyroiditis. Interpreted by: Coy Wisdom MD Preliminary Report By: Coy Wisdom MD Electronically signed By Coy Wisdom MD Dictated Date: 05/04/2024 9:45:31 AM Prelim Date: 05/04/2024 9:48:59 AM Sign Date: 05/04/2024 9:48:59 AM Ordering Provider: KP JAMES [facility] Thyroidon 04-13-2024 Thyroid [facility] Imaging Services [address] [place] [address] Thyroid MR#: [id number] Acct: [id number] Name: LUC GANNON Rep #: [id number] : 1940 M 83 From: Parminder Hwang MD PCP: Dr. Mary Abernathy MD Status: REG CLI Study: Thyroid Date of Exam: 04/13/24 Exam# [id number] Ordering Dr: KP JAMES [id number] STUDY: THYROID ULTRASOUND REASON FOR EXAM: Male, [...] Signed: Parminder Hwang MD at 16:12 EDT , CC: KP JAMES; Dr. 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 Normal [facility] Jorje 04-06-2024 TSI <0.10 Normal 0.00-0.55 [facility] ([place]) Comment on above: Result Comment: Perf ormed At: [facility] [id number] Ryan Perkins MD Ph:[phone] Performed By: #### F T3, THYAB, B12, FT4, GFR, CRP, CMP, CBC, TSH, ESR, ADIFF, ANEU, 035424, VIDH #### [place] [address] .ATG SOon 04-05-2024 Thyroglob Ab <1.0 Normal 0.0-0.9 [facility] ([place]) Comment on above: Result Comment: Thyr oglobulin Antibody measured by [employer] Method[employer] It should be noted that the presence of thyroglobulin antibodies may not be pathogenic nor diagnostic, especially at very low levels. The assay grain ii farmworker has found that four percent of individuals without evidence of thyroid disease or autoimmunity will have positive TgAb levels up to 4 IU/mL. Performed At: [email or web address] [id number] Artem Bustillos PhD Ph:[phone] Performed By: #### 0 [address] #### [address] [address] .Auto Diffon 04-03-2024 Basophil, Absolute 0.0 10 3/mcL Normal 0.0-0.3 [facility] ([place]) Comment on above: Performed By: #### F T3, THYAB, B12, FT4, GFR, CRP, CMP, CBC, TSH, ESR, ADIFF, ANEU, 850025, VIDH #### [address] [address] Basophils/100 WBC (Bld) 0.6 % Normal 0.0-2.5 A [facility] ([place]) Comment on above: Performed By: #### F T3, THYAB, B12, FT4, GFR, CRP, CMP, CBC, TSH, ESR, ADIFF, ANEU, 211780, VIDH #### [place] [id number] Eosinophil, Absolute 0.2 10 3/mcL Normal 0.0-0.7 [facility] ([place]) Comment on above: Performed By: #### F T3, THYAB, B12, FT4, GFR, CRP, CMP, CBC, TSH, ESR, ADIFF, ANEU, 331186, VIDH #### [address] [address] Eosinophils/100 WBC (Bld) 2.4 % Normal 0.0-6.0 [facility] ([place]) Comment on above: Performed By: #### F T3, THYAB, B12, FT4, GFR, CRP, CMP, CBC, TSH, ESR, ADIFF, ANEU, 316908, VIDH #### [address] [address] Lymphocyte, Absolute 1.1 10 3/mcL Normal 0.9-4.3 [facility] ([place]) Comment on above: Performed By: #### F T3, THYAB, B12, FT4, GFR, CRP, CMP, CBC, TSH, ESR, ADIFF, ANEU, 356841, VIDH #### [address] [address] Lymphocytes/100 WBC (Bld) 16.9 % Low 20.0-40.0 [facility] ([place]) Comment on above: Performed By: #### F T3, THYAB, B12, FT4, GFR, CRP, CMP, CBC, TSH, ESR, ADIFF, ANEU, 204332, VIDH #### [address] [address] Monocyte, Absolute 0.7 10 3/mcL Normal 0.1-1.4 [facility] ([place]) Comment on above: Performed By: #### F T3, THYAB, B12, FT4, GFR, CRP, CMP, CBC, TSH, ESR, ADIFF, ANEU, 625508, VIDH #### [address] [address] Monocytes/100 WBC (Bld) 11.5 % Normal 2.0-13.0 A [facility] ([place]) Comment on above: Performed By: #### F T3, THYAB, B12, FT4, GFR, CRP, CMP, CBC, TSH, ESR, ADIFF, ANEU, 144501, VIDH #### [address] [address] Neutrophils/100 WBC (Bld) 68.6 % Normal 50.0-75.0 [facility] ([place]) Comment on above: Performed By: #### F T3, THYAB, B12, FT4, GFR, CRP, CMP, CBC, TSH, ESR, ADIFF, ANEU, [id number], VIDH #### [address] [address] .GFRon 04-03-2024 GFR >60 Normal [facility] ([place]) Comment on above: Result Comment: GFR Population [...] CRP, CMP, CBC, TSH, ESR, ADIFF, ANEU, [id number], VIDH #### [address] [address] GFR Non- >60 Normal [facility] ([place]) Comment on above: Result Comment: GFR Population [...] CRP, CMP, CBC, TSH, ESR, ADIFF, ANEU, [id number], VIDH #### [address] [address] .NEUABSon 04-03-2024 Neutrophil, Absolute 4.4 10 3/mcL Normal 2.3-8.1 [facility] ([place]) Comment on above: Performed By: #### F T3, THYAB, B12, FT4, GFR, CRP, CMP, CBC, TSH, ESR, ADIFF, ANEU, [id number], VIDH #### [address] [address] B12on 04-03-2024 Cobalamin (Vitamin B12) [Mass/Vol] 491 pg/mL Normal 211-911 [facility] ([place]) Comment on above: Performed By: #### F T3, THYAB, B12, FT4, GFR, CRP, CMP, CBC, TSH, ESR, ADIFF, ANEU, [id number], VIDH #### [place] [address] CBCon 04-03-2024 Erythrocyte distribution width (RBC) [Ratio] 14.6 % Normal 11.5-15.5 [facility] ([place]) Comment on above: Performed By: #### F T3, THYAB, B12, FT4, GFR, CRP, CMP, CBC, TSH, ESR, ADIFF, ANEU, [id number], VIDH #### [place] [address] Hematocrit (Bld) [Volume fraction] 41.2 % Normal 40.0-52.0 [facility] ([place]) Comment on above: Performed By: #### F T3, THYAB, B12, FT4, GFR, CRP, CMP, CBC, TSH, ESR, ADIFF, ANEU, [id number], VIDH #### [place] [address] Hgb 13.5 G/dL Normal 13.0-17.5 [facility] ([place]) Comment on above: Performed By: #### F T3, THYAB, B12, FT4, GFR, CRP, CMP, CBC, TSH, ESR, ADIFF, ANEU, [id number], VIDH #### [place] [address] MCH (RBC) [Entitic mass] 29.0 pg Normal 27.0-33.0 [facility] ([place]) Comment on above: Performed By: #### F T3, THYAB, B12, FT4, GFR, CRP, CMP, CBC, TSH, ESR, ADIFF, ANEU, 958998, VIDH #### [place] [address] MCHC 32.7 G/dL Normal 32.0-36.0 [facility] ([place]) Comment on above: Performed By: #### F T3, THYAB, B12, FT4, GFR, CRP, CMP, CBC, TSH, ESR, ADIFF, ANEU, [id number], VIDH #### [place] [id number] MCV (RBC) [Entitic vol] 88.8 fL Normal 81.0-100.0 A [facility] ([place]) Comment on above: Performed By: #### F T3, THYAB, B12, FT4, GFR, CRP, CMP, CBC, TSH, ESR, ADIFF, ANEU, [id number], VIDH #### [place] [id number] Platelet 240 10 3/mcL Normal 150-450 [facility] ([place]) Comment on above: Performed By: #### F T3, THYAB, B12, FT4, GFR, CRP, CMP, CBC, TSH, ESR, ADIFF, ANEU, [id number], VIDH #### [place] [id number] Platelet mean volume (Bld) [Entitic vol] 8.3 fL Normal 6.4-10.5 [facility] ([place]) Comment on above: Performed By: #### F T3, THYAB, B12, FT4, GFR, CRP, CMP, CBC, TSH, ESR, ADIFF, ANEU, 459227, VIDH #### [place] [id number] RBC 4.64 10 6/mcL Normal 4.50-6.00 [facility] ([place]) Comment on above: Performed By: #### F T3, THYAB, B12, FT4, GFR, CRP, CMP, CBC, TSH, ESR, ADIFF, ANEU, 245653, VIDH #### [place] [id number] WBC 6.4 10 3/mcL Normal 4.5-10.8 [facility] ([place]) Comment on above: Performed By: #### F T3, THYAB, B12, FT4, GFR, CRP, CMP, CBC, TSH, ESR, ADIFF, ANEU, 224114, VIDH #### [place] [id number] CMPon 04-03-2024 Albumin Level 3.7 G/dL Normal 3.2-4.8 [facility] ([place]) Comment on above: Performed By: #### F T3, THYAB, B12, FT4, GFR, CRP, CMP, CBC, TSH, ESR, ADIFF, ANEU, 256803, VIDH #### [address] [address] Albumin/Globulin [Mass ratio] 1.4 {ratio} Normal 0.9-1.6 [facility] ([place]) Comment on above: Performed By: #### F T3, THYAB, B12, FT4, GFR, CRP, CMP, CBC, TSH, ESR, ADIFF, ANEU, [id number], VIDH #### [address] [address] ALP [Catalytic activity/Vol] 105 U/L Normal 38-126 [facility] ([place]) Comment on above: Performed By: #### F T3, THYAB, B12, FT4, GFR, CRP, CMP, CBC, TSH, ESR, ADIFF, ANEU, 224778, VIDH #### [address] [address] ALT [Catalytic activity/Vol] 23 U/L Normal 12-55 [facility] ([place]) Comment on above: Performed By: #### F T3, THYAB, B12, FT4, GFR, CRP, CMP, CBC, TSH, ESR, ADIFF, ANEU, 839663, VIDH #### [address] [address] AST [Catalytic activity/Vol] 17 U/L Normal 8-34 [facility] ([place]) Comment on above: Performed By: #### F T3, THYAB, B12, FT4, GFR, CRP, CMP, CBC, TSH, ESR, ADIFF, ANEU, 899735, VIDH #### [address] [address] Bili Total 0.60 mg/dL Normal 0.20-1.20 [facility] ([place]) Comment on above: Result Comment: Use of this assay is not recommended for patients undergoing treatment with eltrombopag due to the potential for falsely elevated results. Performed By: #### F T3, THYAB, B12, FT4, GFR, CRP, CMP, CBC, TSH, ESR, ADIFF, ANEU, 440474, VIDH #### [address] [address] BUN/Creatinine Ratio 32.7 ratio High 10.0-22.0 [facility] ([place]) Comment on above: Performed By: #### F T3, THYAB, B12, FT4, GFR, CRP, CMP, CBC, TSH, ESR, ADIFF, ANEU, 597658, VIDH #### [address] [address] Calcium [Mass/Vol] 9.8 mg/dL Normal 8.7-10.4 [facility] ([place]) Comment on above: Performed By: #### F T3, THYAB, B12, FT4, GFR, CRP, CMP, CBC, TSH, ESR, ADIFF, ANEU, 609447, VIDH #### [address] [address] Chloride [Moles/Vol] 109 mmol/L Normal 98-110 [facility] ([place]) Comment on above: Performed By: #### F T3, THYAB, B12, FT4, GFR, CRP, CMP, CBC, TSH, ESR, ADIFF, ANEU, 450838, VIDH #### [address] [address] CO2 [Moles/Vol] 31 mmol/L Normal 22-32 [facility] ([place]) Comment on above: Performed By: #### F T3, THYAB, B12, FT4, GFR, CRP, CMP, CBC, TSH, ESR, ADIFF, ANEU, [id number], VIDH #### [address] [address] Creatinine [Mass/Vol] 1.07 mg/dL Normal 0.60-1.40 [facility] ([place]) Comment on above: Performed By: #### F T3, THYAB, B12, FT4, GFR, CRP, CMP, CBC, TSH, ESR, ADIFF, ANEU, 738619, VIDH #### [address] [address] Electrolyte Balance 3.0 mEq/L Low 4.0-15.0 [facility] ([place]) Comment on above: Performed By: #### F T3, THYAB, B12, FT4, GFR, CRP, CMP, CBC, TSH, ESR, ADIFF, ANEU, 823338, VIDH #### [address] [address] Globulin 2.6 G/dL Normal 1.5-3.8 [facility] ([place]) Comment on above: Performed By: #### F T3, THYAB, B12, FT4, GFR, CRP, CMP, CBC, TSH, ESR, ADIFF, ANEU, 957352, VIDH #### [address] [address] Glucose [Mass/Vol] 81 mg/dL Low 82-115 [facility] ([place]) Comment on above: Performed By: #### F T3, THYAB, B12, FT4, GFR, CRP, CMP, CBC, TSH, ESR, ADIFF, ANEU, 699011, VIDH #### [address] [address] Potassium [Moles/Vol] 4.6 mmol/L Normal 3.5-5.0 [facility] ([place]) Comment on above: Performed By: #### F T3, THYAB, B12, FT4, GFR, CRP, CMP, CBC, TSH, ESR, ADIFF, ANEU, 209403, VIDH #### [address] [address] Sodium [Moles/Vol] 143 mmol/L Normal 136-145 [facility] ([place]) Comment on above: Performed By: #### F T3, THYAB, B12, FT4, GFR, CRP, CMP, CBC, TSH, ESR, ADIFF, ANEU, 826852, VIDH #### [address] [address] Total Protein 6.3 G/dL Normal 5.7-8.2 [facility] ([place]) Comment on above: Result Comment: No te - New Reference Range in effect 20 Performed By: #### F T3, THYAB, B12, FT4, GFR, CRP, CMP, CBC, TSH, ESR, ADIFF, ANEU, 889734, VIDH #### [address] [address] Urea nitrogen [Mass/Vol] 35.0 mg/dL High 8.0-22.0 [facility] ([place]) Comment on above: Performed By: #### F T3, THYAB, B12, FT4, GFR, CRP, CMP, CBC, TSH, ESR, ADIFF, ANEU, 445714, VIDH #### [place] [id number] CRPon 04-03-2024 CRP [Mass/Vol] mg/L Normal 0.0-1.0 [facility] ([place]) Comment on above: Result Comment: No te - New Reference Range in effect 20 Performed By: #### F T3, THYAB, B12, FT4, GFR, CRP, CMP, CBC, TSH, ESR, ADIFF, ANEU, 826763, VIDH #### [place] [id number] ESRon 04-03-2024 Erythrocyte Sed Rate 16 mm/hr Normal 0-20 [facility] ([place]) Comment on above: Performed By: #### F T3, THYAB, B12, FT4, GFR, CRP, CMP, CBC, TSH, ESR, ADIFF, ANEU, 911733, VIDH #### [address] [address] FT3on 04-03-2024 Free T3 [Mass/Vol] 3.26 pg/mL Normal 2.30-4.20 [facility] ([place]) Comment on above: Performed By: #### F T3, THYAB, B12, FT4, GFR, CRP, CMP, CBC, TSH, ESR, ADIFF, ANEU, [id number], VIDH #### [place] [id number] FT4on 04-03-2024 Free T4 [Mass/Vol] 0.97 ng/dL Normal 0.89-1.76 [facility] ([place]) Comment on above: Result Comment: No te - New Reference Range in effect 20 Performed By: #### F T3, THYAB, B12, FT4, GFR, CRP, CMP, CBC, TSH, ESR, ADIFF, ANEU, 686671, VIDH #### [place] [id number] THYABon 04-03-2024 Thyroglobulin Ab See comment Normal 15-60 [facility] ([place]) Comment on above: Result Comment: Due to a lack of ATG reagent, testing will be sent out to [facility]. Note - New Reference Range in effect 20 Performed By: #### F T3, THYAB, B12, FT4, GFR, CRP, CMP, CBC, TSH, ESR, ADIFF, ANEU, [id number], VIDH #### [place] [address] anti-Thyroid Peroxidase 162 units/ml High 0-60 [facility] ([place]) Comment on above: Result Comment: No te - New Reference Range in effect 20 Performed By: #### F T3, THYAB, B12, FT4, GFR, CRP, CMP, CBC, TSH, ESR, ADIFF, ANEU, [id number], VIDH #### [place] [id number] TSHon 04-03-2024 TSH 0.040 mIU/mL Low 0.550-4.780 [facility] ([place]) Comment on above: Order Comment: DUE N OW Result Comment: No te - New Reference Range in effect 20 Performed By: #### F T3, THYAB, B12, FT4, GFR, CRP, CMP, CBC, TSH, ESR, ADIFF, ANEU, [id number], VIDH #### [place] [id number] VIDHon 04-03-2024 Vit. D 25-Hydroxy 33.0 ng/mL Normal [facility] ([place]) Comment on above: Result Comment: Inte rpretive Values Based on Total 25(OH)D: Severe Deficiency <20 ng/mL Mild to Moderate Deficiency 20-30 ng/mL [facility] Levels 30-100 ng/mL Toxicity Possible >100 ng/mL Performed By: #### F T3, THYAB, B12, FT4, GFR, CRP, CMP, CBC, TSH, ESR, ADIFF, ANEU, [id number], VIDH #### [facility] [address] [place] [address] Absolute lymphocyte countOrd ered By: Obinna Giovanny on 11-19-2023 Lymphocytes Auto (Unsp spec) [#/Vol] 1.61 10*3/uL 0.83-4.51 [facility] Automated lymphocyte count a s percentage of total leukocytesOrdered By: [facility] on 11-19-2023 Lymphocytes/100 WBC Auto (Unsp spec) 13.9 % 19-41 [facility] Basophil percentageOrdered B y: [facility] on 11-19-2023 Basophils/100 WBC (Bld) 0.4 % 0-1 [facility] Chloride [Moles/Vol] 107 mmol/L 98-107 [facility] Eosinophils/100 WBC (Bld) 1.6 % 0-5 [facility] Glucose [Mass/Vol] 105 mg/dL 74-106 [facility] Comment on above: Fasting Glucose resu lt from 100 to 125 mg/dL suggests IMPAIRED HOMEOSTASIS per A.D.A. criteria. Hemoglobin (Bld) [Mass/Vol] 14.1 g/dL 13.0-16.5 [facility] Monocytes/100 WBC (Bld) 7.8 % 0-10 [facility] Neutrophils (Bld) [#/Vol] 8.7 10*3/uL 2.0-7.7 [facility] Neutrophils/100 WBC (Bld) 74.9 % 47-70 [facility] Potassium [Moles/Vol] 4.1 mmol/L 3.5-5.1 [facility] Comment on above: Slight Hemolysis, Re sult may be falsely increased. Sodium [Moles/Vol] 143 mmol/L 136-145 [facility] WBC (Bld) [#/Vol] 11.6 10*3/uL 4.4-11.0 [facility] Determination of erythrocyte mean corpuscular volume (MCV)Ordered By: Obinna [facility] on 11-19-2023 MCV (RBC) [Entitic vol] 89.0 fL 80-94 [facility] Erythrocyte distribution wid th ratioOrdered By: [facility] on 11-19-2023 Erythrocyte distribution width (RBC) [Ratio] 13.9 % 11.6-14.6 [facility] Erythrocyte distribution wid th standard deviationOrdered By: [facility] on 11-19-2023 Erythrocyte distribution width (RBC) [Entitic vol] 44.7 fL 35.1-43.9 [facility] Hematocrit Auto (Bld) [Volum e fraction]Ordered By: [facility] on 11-19-2023 Hematocrit (Bld) [Volume fraction] 44.4 % 40-54 [facility] Immature granulocytes/100 WB C Auto (Bld)Ordered By: [facility] on 11-19-2023 Immature granulocytes/100 WBC (Bld) 1.400 % 0.0-0.9 [facility] Comment on above: IG% - Immature Granu locytes (promyelocytes, myelocytes and metamyelocytes) > 1% indicates that a LEFT SHIFT is Present. Laboratory - Chemistry and C hemistry - challengeOrdered By: [facility] on 11-19-2023 CO2 [Moles/Vol] 31.0 mmol/L 21.0-32.0 [facility] Urea nitrogen/Creatinine [Mass ratio] 30.8 mg/mg 10-20 [facility] Laboratory - Hematology and Cell countsOrdered By: [facility] on 11-19-2023 MCH (RBC) [Entitic mass] 28.3 pg 27.0-32.0 [facility] MCHC (RBC) [Mass/Vol] 31.8 g/dL 32-36 [facility] Nucleated RBC/100 WBC (Bld) [Ratio] 0 % 0-5 [facility] Platelet mean volume (Bld) [Entitic vol] 9.5 fL 6.2-12.0 [facility] Platelets (Bld) [#/Vol] 286 10*3/uL 150-450 [facility] No Panel InformationOrdered By: Obinna Giovanny on 11-19-2023 Estimated GFR (MDRD) Amer 88 mL/min >60 [facility] Comment on above: GFR Calc Estimated GFR (MDRD) Non-Af Amer 73 mL/min >60 [facility] Comment on above: Non- GFR Calc RBC Auto (Bld) [#/Vol]Ordere d By: [place] Giovanny on 11-19-2023 RBC (Bld) [#/Vol] 4.99 10*6/uL 4.6-6.2 [facility] Serum or plasma calcium andrez urement (mass/volume)Ordered By: Obinna Baltazar on 11-19-2023 Calcium [Mass/Vol] 9.0 mg/dL 8.5-10.1 [facility] Serum or plasma creatinine m easurement (mass/volume)Ordered By: Obinna Baltazar on 11-19-2023 Creatinine [Mass/Vol] 1.04 mg/dL 0.70-1.30 [facility] Comment on above: The validity of the calculated GFR & GFRAA in patients over 70 years has not been determined. Clinical correlation is essential. Serum or plasma urea nitroge n measurement (mass/volume)Ordered By: Obinna Baltazar on 11-19-2023 Urea nitrogen [Mass/Vol] 32 mg/dL 7-18 [facility] Thin prep Papanicolaou smear with manual screeningOrdered By: Obinna Giovanny on 11-19-2023 Thin prep Papanicolaou smear with manual screening 5 5-15 [facility] LUC GANNON ([id number]) 1940 M Date Time Provider Department 09/04/23 JAYLAN TODD [facility] During your visit today, we recorded the following information about you: Jaylan Todd PA-C 09/04/2023 8:18 AM Signed Please call let [...] Date Reviewed: 09/03/2023 Reviewed by: Alexander Will APRN.[employer] - Fully Assessed Reason for Visit: Results [...] Encounter Status:Closed by JENNIFER PERDOMO on 09/05/23 [facility] CNOVon 09-03-2023 CNOV Office Visit ([facility] ) LUC GANNON ([id number]) 1940 M Date Time Provider Department 09/03/23 12:00 PM ALEXANDER WILL K[facility] During your visit today, we recorded the following information about you: Temperature Pulse Respiration Blood pressure 98 degrees 77/minute 20/minute 124/71 Weight 122 kg Alexander Will APRN.[employer]PER[employer]OR 09/03/2023 12:15 PM Signed Subjective HPI Nontoxic-appearing male presents to urgent care with chief complaint of fever and cough. Duration of symptoms 3 days. Associated symptoms with today's chief complaint are on and off headache, muscle aches, fatigue, nausea, sore throat, nonproductive cough, and fever. Patient stated symptoms started abruptly. Patient states they have used [id number] medication with some success. Temp today of [...] patient's clini (more content not included)... Normal [facility] COVID AND INFLUENZA A/B AND RSV NAAT, ROUTINEon 09-03-2023 SARS-CoV-2 (COVID-19) RNA ZOYA+probe Ql (Unsp spec) COVID 19 RESULT: Not detected The method used is RT-PCR or an equivalent NAAT method. Reference Range (the expected result in uninfected individuals): Not detected INFLUENZA A PCR: Detected INFLUENZA B PCR: Not detected RSV PCR: Not detected Abnormal [facility] Comment on above: Performed By: #### C VFLRS #### [facility] CLIA [id number] [address] [place] [address] [place] Basophil percentageOrdered B y: Mary Abernathy on 04-27-2023 Bilirubin [Mass/Vol] 0.60 mg/dL 0.20-1.00 [facility] Comment on above: For patients on eltr ombopag therapy, use of Dimension [place] TBIL is not recommended. Chloride [Moles/Vol] 106 mmol/L 98-107 [facility] Cholesterol [Mass/Vol] 213 mg/dL <200 [facility] Comment on above: <200 mg/dL Desirable 200-240 mg/dL Borderline >240 mg/dL High Risk Glucose [Mass/Vol] 115 mg/dL 74-106 [facility] Comment on above: Fasting Glucose resu lt from 100 to 125 mg/dL suggests IMPAIRED HOMEOSTASIS per A.D.A. criteria. Potassium [Moles/Vol] 4.3 mmol/L 3.5-5.1 [facility] Protein [Mass/Vol] 7.3 g/dL 6.4-8.2 [facility] Sodium [Moles/Vol] 138 mmol/L 136-145 [facility] Triglyceride [Mass/Vol] 148 mg/dL <199 [facility] Comment on above: The drugs N-Acetylcy steine and Metamizole may falsely depress this assay.Serum Triglycerides Reference Interval Normal <150 mg/dL Borderline high 150 - 199 mg/dL High 200 - 499 mg/dL Very High > or = 500 mg/dL Direct bilirubinOrdered By: Mary Abernathy on 04-27-2023 Bilirubin.direct [Mass/Vol] 0.13 mg/dL 0.00-0.30 [facility] Laboratory - Chemistry and C hemistry - challengeOrdered By: Mary Abernathy on 04-27-2023 ALP [Catalytic activity/Vol] 69 U/L 45-117 [facility] ALT [Catalytic activity/Vol] 24 U/L 16-61 [facility] CO2 [Moles/Vol] 27.0 mmol/L 21.0-32.0 [facility] Globulin (S) [Mass/Vol] 3.5 g/dL 2.2-4.2 [facility] Urea nitrogen/Creatinine [Mass ratio] 28.3 mg/mg 10-20 [facility] No Panel InformationOrdered By: Mary Abernathy on 04-27-2023 Estimated GFR (MDRD) Amer 97 mL/min >60 [facility] Comment on above: GFR Calc Estimated GFR (MDRD) Non-Af Amer 80 mL/min >60 [facility] Comment on above: Non- GFR Calc Urine Microalbumin/Creatinine Ratio 16.1 mg/g CRE <30 [facility] Serum or plasma albumin andrez urement (mass/volume)Ordered By: Mary Abernathy on 04-27-2023 Albumin [Mass/Vol] 3.8 g/dL 3.2-5.0 [facility] Serum or plasma calcium andrez urement (mass/volume)Ordered By: Mary Abernathy on 04-27-2023 Calcium [Mass/Vol] 9.0 mg/dL 8.5-10.1 [facility] Serum or plasma cholesterol in HDL measurement (mass/volume)Ordered By: aMry Abernathy on 04-27-2023 Cholesterol in HDL [Mass/Vol] 45 mg/dL >40 [facility] Comment on above: The drugs N-Acetylcy steine and Metamizole may falsely depress this assay. Reference Range HDL <40 mg/dL Low HDL Cholesterol HDL >or= 60 mg/dL High HDL Cholesterol Serum or plasma cholesterol in VLDL measurement (mass/volume)Ordered By: Mary Abernathy on 04-27-2023 Cholesterol in VLDL [Mass/Vol] 30 mg/dL 5-40 [facility] Serum or plasma creatinine m easurement (mass/volume)Ordered By: Mary Abernathy on 04-27-2023 Creatinine [Mass/Vol] 0.95 mg/dL 0.70-1.30 [facility] Comment on above: The validity of the calculated GFR & GFRAA in patients over 70 years has not been determined. Clinical correlation is essential. Serum or plasma low density lipoprotein (LDL) cholesterol measurement (mass/volume)Ordered By: Mary Abernathy on 04-27-2023 Cholesterol in LDL [Mass/Vol] 138 mg/dL 0-130 [facility] Serum or plasma urea nitroge n measurement (mass/volume)Ordered By: Mary Abernathy on 04-27-2023 Urea nitrogen [Mass/Vol] 27 mg/dL 7-18 [facility] Thin prep Papanicolaou smear with manual screeningOrdered By: Mary Abernathy on 04-27-2023 Thin prep Papanicolaou smear with manual screening 16 U/L 15-37 [facility] Thin prep Papanicolaou smear with manual screening 5 5-15 [facility] Thin prep Papanicolaou smear with manual screening 16.9 mg/L NO RANGE EST. [facility] Urine creatinine measurement (mass/volume)Ordered By: Mary Abernathy on 04-27-2023 Creatinine (U) [Mass/Vol] 105.00 mg/dL NO RANGE EST. [facility] Whole blood hemoglobin A1c/t otal hemoglobin ratio (mass fraction)Ordered By: Mary Abernathy on 04-09-2023 HbA1c (Bld) [Mass fraction] 6.2 % 3.8-5.6 [facility] Comment on above: Normal < 5.7 % Predi abetic 5.7 - 6.4 % Diabetic >or= 6.5 % Please note range changes. Absolute lymphocyte counton 07-07-2022 Lymphocytes Auto (Unsp spec) [#/Vol] 1.23 10*3/uL 0.83-4.51 [facility] Work Phone: Albumin Elph [Mass/Vol]on Albumin [Mass/Vol] 4.0 g/dL 2.9-4.4 [facility] Work Phone: Basophil percentageon 2021 Basophil percentage 3.3 mg/dL 2.5-4.9 [facility] Work Phone: Basophils/100 WBC (Bld) 0.4 % 0-1 [facility] Work Phone: Bilirubin [Mass/Vol] 0.50 mg/dL 0.20-1.00 [facility] Work Phone: Comment on above: For patients on eltr ombopag therapy, use of Dimension [place] TBIL is not recommended. Chloride [Moles/Vol] 107 mmol/L 98-107 [facility] Work Phone: Eosinophils/100 WBC (Bld) 2.3 % 0-5 [facility] Work Phone: Glucose [Mass/Vol] 111 mg/dL 74-106 [facility] Work Phone: Comment on above: Fasting Glucose resu lt from 100 to 125 mg/dL suggests IMPAIRED HOMEOSTASIS per A.D.A. criteria. Neutrophils (Bld) [#/Vol] 5.3 10*3/uL 2.0-7.7 [facility] Work Phone: Neutrophils/100 WBC (Bld) 71.6 % 47-70 [facility] Work Phone: Potassium [Moles/Vol] 3.9 mmol/L 3.5-5.1 [facility] Work Phone: Protein [Mass/Vol] 7.0 g/dL 6.4-8.2 [facility] Work Phone: Sodium [Moles/Vol] 142 mmol/L 136-145 [facility] Work Phone: WBC (Bld) [#/Vol] 7.4 10*3/uL 4.4-11.0 [facility] Work Phone: Blood erythrocytes count (nu mber/volume)on 07-07-2022 RBC (Bld) [#/Vol] 4.87 10*6/uL 4.6-6.2 [facility] Work Phone: Blood hemoglobin measurement (mass/volume)on 07-07-2022 Hemoglobin (Bld) [Mass/Vol] 14.2 g/dL 13.0-16.5 [facility] Work Phone: Blood lymphocytes/100 leukoc yteson 07-07-2022 Lymphocytes/100 WBC (Bld) 16.7 % 19-41 [facility] Work Phone: Blood monocytes/100 leukocyt eson 07-07-2022 Monocytes/100 WBC (Bld) 8.7 % 0-10 [facility] Work Phone: Blood platelet mean volumeon 07-07-2022 Platelet mean volume (Bld) [Entitic vol] 9.3 fL 6.2-12.0 [facility] Work Phone: Determination of erythrocyte mean corpuscular volume (MCV)on 07-07-2022 MCV (RBC) [Entitic vol] 88.7 fL 80-94 [facility] Work Phone: Erythrocyte sedimentation ra megan 07-07-2022 ESR (Bld) [Velocity] 15 mm/h 0-20 [facility] Work Phone: Hematocrit Auto (Bld) [Volum e fraction]on 07-07-2022 Hematocrit (Bld) [Volume fraction] 43.2 % 40-54 [facility] Work Phone: [phone] Hemoglobin in reticulocytes (mass per reticulocyte)on 07-07-2022 Hemoglobin (Reticulocytes) [Entitic mass] 32.9 pg 30-35 [facility] Work Phone: Interpretation of serum or p lasma protein pattern by immunofixation (narrative resulton 07-07-2022 Protein Fractions Immunofixation Manuel [Interp] See comment [facility] Work Phone: Comment on above: Result: Not Observed Laboratory - Chemistry and C hemistry - challengeon 07-07-2022 ALP [Catalytic activity/Vol] 84 U/L 45-117 [facility] Work Phone: ALT [Catalytic activity/Vol] 29 U/L 16-61 [facility] Work Phone: CO2 [Moles/Vol] 30.0 mmol/L 21.0-32.0 [facility] Work Phone: Cobalamin (Vitamin B12) [Mass/Vol] 435 pg/mL 211-911 [facility] Work Phone: [phone] Magnesium [Mass/Vol] 2.4 mg/dL 1.6-2.6 [facility] Work Phone: Urea nitrogen/Creatinine [Mass ratio] 22.5 mg/mg 10-20 [facility] Work Phone: [phone] Laboratory - Hematology and Cell countson 07-07-2022 Erythrocyte distribution width (RBC) [Entitic vol] 43.1 fL 35.1-43.9 [facility] Work Phone: [phone] Erythrocyte distribution width (RBC) [Ratio] 13.3 % 11.6-14.6 [facility] Work Phone: [phone] Immature granulocytes/100 WBC (Bld) 0.300 % 0.0-0.9 [facility] Work Phone: [phone] Comment on above: IG% - Immature Granu locytes (promyelocytes, myelocytes and metamyelocytes) > 1% indicates that a LEFT SHIFT is Present. MCH (RBC) [Entitic mass] 29.2 pg 27.0-32.0 [facility] Work Phone: [phone] Nucleated RBC/100 WBC (Bld) [Ratio] 0 % 0-5 [facility] Work Phone: [phone] MCHC Auto (RBC) [Mass/Vol]on 07-07-2022 MCHC (RBC) [Mass/Vol] 32.9 g/dL 32-36 [facility] Work Phone: [phone] Panel Informationon 07-07 Addendum Document Comment . [facility] Work Phone: [phone] Comment on above: Protein electrophore sis scan will follow via computer,mail, or c wpf developer delivery. Estimated GFR (MDRD) Amer 82 mL/min >60 [facility] Work Phone: [phone] Comment on above: GFR Calc Estimated GFR (MDRD) Non-Af Amer 68 mL/min >60 [facility] Work Phone: [phone] Comment on above: Non- GFR Calc Free Lambda Light Chains, Quant 14.4 mg/L 5.7-26.3 [facility] Work Phone: [phone] Immature Reticulocyte Fraction 5.00 % 3.00-15.90 [facility] Work Phone: [phone] Reticulocyte Count 0.96 % 0.5-1.5 [facility] Work Phone: [phone] Platelets bldon 07-07-2022 Platelets (Bld) [#/Vol] 207 10*3/uL 150-450 [facility] Work Phone: [phone] Serum kwpll-4-kkkyxafp measu rement by electrophoresison 07-07-2022 Alpha 1 globulin Elph [Mass/Vol] 0.3 g/dL 0.0-0.4 [facility] Work Phone: [phone] Alpha 1 globulin Elph [Mass/Vol] 0.7 g/dL 0.4-1.0 [facility] Work Phone: [phone] Serum globulin measurement ( mass/volume)on 07-07-2022 Globulin (S) [Mass/Vol] 2.7 g/dL 2.2-3.9 [facility] Work Phone: [phone] Serum immunoglobulin kappa l ight chains/immunoglobulin lambda light chains mass ratioon 07-07-2022 Immunoglobulin light chains.kappa/Immunoglobu kameron light chains.lambda (S) [Mass ratio] 1.86 0.26-1.65 [facility] Work Phone: [phone] Comment on above: Performed at: [address] [id number] Director: Apollo Mcgill PhD, Phone: [phone] Serum or plasma IgA measurem ent (mass/volume)on 07-07-2022 IgA [Mass/Vol] 105 mg/dL 61-437 [facility] Work Phone: [phone] Serum or plasma IgG measurem ent (mass/volume)on 07-07-2022 IgG [Mass/Vol] 823 mg/dL [phone] [facility] Work Phone: [phone] Serum or plasma IgM measurem ent (mass/volume)on 07-07-2022 IgM [Mass/Vol] 142 mg/dL 15-143 [facility] Work Phone: [phone] Serum or plasma albumin andrez urement (mass/volume)on 07-07-2022 Albumin [Mass/Vol] 3.6 g/dL 3.2-5.0 [facility] Work Phone: Serum or plasma albumin/glob ulin mass ratioon 07-07-2022 Albumin/Globulin [Mass ratio] 1.1 {ratio} 0.9-2.4 [facility] Work Phone: Serum or plasma beta globuli n measurement by electrophoresis (mass/volume)on 07-07-2022 Beta globulin Elph [Mass/Vol] 0.9 g/dL 0.7-1.3 [facility] Work Phone: Serum or plasma calcium andrez urement (mass/volume)on 07-07-2022 Calcium [Mass/Vol] 8.8 mg/dL 8.5-10.1 [facility] Work Phone: Serum or plasma creatinine m easurement (mass/volume)on 07-07-2022 Creatinine [Mass/Vol] 1.11 mg/dL 0.70-1.30 [facility] Work Phone: Comment on above: The validity of the calculated GFR & GFRAA in patients over 70 years has not been determined. Clinical correlation is essential. Serum or plasma ferritin stella surement (mass/volume)on 07-07-2022 Ferritin [Mass/Vol] 195 ng/mL 26-388 [facility] Work Phone: Serum or plasma folate measu rement (mass/volume)on 07-07-2022 Folate [Mass/Vol] 19.40 ng/mL 3.1-55.4 [facility] Work Phone: Serum or plasma gamma globul in measurement by electrophoresis (mass/volume)on 07-07-2022 Gamma globulin Elph [Mass/Vol] 0.8 g/dL 0.4-1.8 [facility] Work Phone: Serum or plasma immunoelectr ophoresis interpretation (nominal result)on 07-07-2022 Interpretation IEP [Interp] Comment: . [facility] Work Phone: Comment on above: Presence of monoclon al protein is unclear at this time. Suggestrepeat in 3 to 6 months if clinically indicated. Serum or plasma immunoglobul in kappa light chains measurement (mass/volume)on 07-07-2022 Immunoglobulin light chains.kappa [Mass/Vol] 26.8 mg/L 3.3-19.4 [facility] Work Phone: Serum or plasma urea nitroge n measurement (mass/volume)on 07-07-2022 Urea nitrogen [Mass/Vol] 25 mg/dL 7-18 [facility] Work Phone: Thin prep Papanicolaou smear with manual screeningon 07-07-2022 Thin prep Papanicolaou smear with manual screening 20 U/L 15-37 [facility] Work Phone: Thin prep Papanicolaou smear with manual screening 5 5-15 [facility] Work Phone: Thin prep Papanicolaou smear with manual screening 197 U/L 87-241 [facility] Work Phone: Thin prep Papanicolaou smear with manual screening 1.5 0.7-1.7 [facility] Work Phone: Total protein bloodon 2021 Protein [Mass/Vol] 6.7 g/dL 6.0-8.5 [facility] Work Phone: Basophil percentageon 2021 Chloride [Moles/Vol] 106 mmol/L 98-107 [facility] Work Phone: Glucose [Mass/Vol] 105 mg/dL 74-106 [facility] Work Phone: Comment on above: Fasting Glucose resu lt from 100 to 125 mg/dL suggests IMPAIRED HOMEOSTASIS per A.D.A. criteria. Potassium [Moles/Vol] 3.9 mmol/L 3.5-5.1 [facility] Work Phone: Sodium [Moles/Vol] 141 mmol/L 136-145 [facility] Work Phone: Laboratory - Chemistry and C hemistry - challengeon 09-28-2022 CO2 [Moles/Vol] 30.0 mmol/L 21.0-32.0 [facility] Work Phone: Natriuretic peptide B (Bld) [Mass/Vol] 447.4 pg/mL 0-100 [facility] Work Phone: Urea nitrogen/Creatinine [Mass ratio] 21.3 mg/mg 10-20 [facility] Work Phone: No Panel Informationon 05-20 Estimated GFR (MDRD) Amer 105 mL/min >60 [facility] Work Phone: Comment on above: GFR Calc Estimated GFR (MDRD) Non-Af Amer 87 mL/min >60 [facility] Work Phone: Comment on above: Non- GFR Calc Serum or plasma calcium andrez urement (mass/volume)on 05-20-2022 Calcium [Mass/Vol] 9.1 mg/dL 8.5-10.1 [facility] Work Phone: Serum or plasma creatinine m easurement (mass/volume)on 05-20-2022 Creatinine [Mass/Vol] 0.89 mg/dL 0.70-1.30 [facility] Work Phone: Comment on above: The validity of the calculated GFR & GFRAA in patients over 70 years has not been determined. Clinical correlation is essential. Serum or plasma urea nitroge n measurement (mass/volume)on 05-20-2022 Urea nitrogen [Mass/Vol] 19 mg/dL 7-18 [facility] Work Phone: [phone] Thin prep Papanicolaou smear with manual screeningon 05-20-2022 Thin prep Papanicolaou smear with manual screening 5 5-15 [facility] Work Phone: [phone] Basophil percentageon 2021 Basophil percentage 0 SEEN /hpf [facility] Work Phone: [phone] Bilirubin Test strip Ql (U)o n 12-19-2021 Bilirubin Ql (U) Negative Negative [facility] Work Phone: [phone] Ketones Test strip Ql (U)on 12-19-2021 Ketones Ql (U) Negative Negative [facility] Work Phone: Mucus LM Ql (Urine sed)on Mucus Ql (Urine sed) 0 SEEN /hpf [facility] Work Phone: Nitrite Test strip Ql (U)on 12-19-2021 Nitrite Ql (U) Negative Negative [facility] Work Phone: No Panel Informationon 12-19 Stool Calprotectin 23 ug/g [facility] Work Phone: Comment on above: Concentration Interp retation Follow-Up<16 - 50 ug/g Normal None>50 -120 ug/g Borderline Re-evaluate in 4-6 weeks >120 ug/g Abnormal Repeat as clinically indicatedPerformed at: - [facility] [address] [id number] Director: Maddie Davis MD, Phone: [phone] Protein Test strip Ql (U)on 12-19-2021 Protein Ql (U) 30 mg/dl Negative [facility] Work Phone: Squamous epithelial cells de tection in urine sediment by light microscopyon 12-19-2021 Epithelial cells.squamous LM Ql (Urine sed) 0 SEEN /hpf [facility] Work Phone: Urine blood detectionon 11-22 RBC Ql (U) 10 /ul Negative [facility] Work Phone: RBC Ql (U) 0-5 SEEN /hpf [facility] Work Phone: Urine clarityon 12-19-2021 Clarity (U) Clear Clear [facility] Work Phone: Urine color determinationon 12-19-2021 Color (U) Yellow Yellow [facility] Work Phone: Urine glucose detectionon Glucose Ql (U) Normal mg/dl Normal [facility] Work Phone: Urine leukocyte esterase det ection by dipstickon 12-19-2021 Leukocyte esterase Test strip Ql (U) Negative Negative [facility] Work Phone: Urine pHon 12-19-2021 pH (U) 5.0 [pH] [facility] Work Phone: Urine sediment bacteria coun t by microscopy (number/high power field)on 12-19-2021 Bacteria LM.HPF (Urine sed) [#/Area] 0 /[HPF] None Seen [facility] Work Phone: Urine specific gravity measu rementon 12-19-2021 Specific gravity (U) [Rel density] 1.025 [facility] Work Phone: [phone] Urobilinogen Auto test strip Ql (U)on 12-19-2021 Urobilinogen Ql (U) Normal mg/dl Normal [facility] Work Phone: Absolute lymphocyte counton 12-15-2021 Lymphocytes Auto (Unsp spec) [#/Vol] 0.92 10*3/uL 0.83-4.51 [facility] Work Phone: Albumin Elph [Mass/Vol]on Albumin [Mass/Vol] 3.6 g/dL [facility] Work Phone: Atypical perinuclear antineu trophil cytoplasmic antibodies measurementon 12-15-2021 Neutrophil cytoplasmic Ab.perinuclear.atypical IF (S) [Titer] 1:640 titer Neg:<1:20 [facility] Work Phone: Comment on above: The atypical pANCA p attern has been observed in asignificant percentage of patients with ulcerative colitis,primary sclerosing cholangitis and autoimmune hepatitis.Performed at: [facility] [address] [id number] Director: Apollo Mcgill PhD, Phone: [phone] at: [facility] [address] [id number] Director: Maddie Davis MD, Phone: [phone] Basophil percentageon 2021 Basophil percentage < 0.2 [facility] Work Phone: Basophils/100 WBC (Bld) 0.5 % 0-1 [facility] Work Phone: Bilirubin [Mass/Vol] 0.70 mg/dL 0.20-1.00 [facility] Work Phone: Comment on above: For patients on eltr ombopag therapy, use of Dimension [place] TBIL is not recommended. Chloride [Moles/Vol] 108 mmol/L 98-107 [facility] Work Phone: Eosinophils/100 WBC (Bld) 2.1 % 0-5 [facility] Work Phone: Glucose [Mass/Vol] 112 mg/dL 74-106 [facility] Work Phone: Comment on above: Fasting Glucose resu lt from 100 to 125 mg/dL suggests IMPAIRED HOMEOSTASIS per A.D.A. criteria. Neutrophils (Bld) [#/Vol] 6.9 10*3/uL 2.0-7.7 [facility] Work Phone: Neutrophils/100 WBC (Bld) 79.9 % 47-70 [facility] Work Phone: Potassium [Moles/Vol] 3.9 mmol/L 3.5-5.1 [facility] Work Phone: Protein [Mass/Vol] 7.2 g/dL 6.4-8.2 [facility] Work Phone: Sodium [Moles/Vol] 141 mmol/L 136-145 [facility] Work Phone: WBC (Bld) [#/Vol] 8.7 10*3/uL 4.4-11.0 [facility] Work Phone: Blood erythrocytes count (nu mber/volume)on 12-15-2021 RBC (Bld) [#/Vol] 5.32 10*6/uL 4.6-6.2 [facility] Work Phone: Blood hemoglobin measurement (mass/volume)on 12-15-2021 Hemoglobin (Bld) [Mass/Vol] 15.1 g/dL 13.0-16.5 [facility] Work Phone: [phone] Blood lymphocytes/100 leukoc yteson 12-15-2021 Lymphocytes/100 WBC (Bld) 10.6 % 19-41 [facility] Work Phone: [phone] Blood monocytes/100 leukocyt eson 12-15-2021 Monocytes/100 WBC (Bld) 6.2 % 0-10 [facility] Work Phone: [phone] Blood platelet mean volumeon 12-15-2021 Platelet mean volume (Bld) [Entitic vol] 9.4 fL 6.2-12.0 [facility] Work Phone: [phone] Determination of erythrocyte mean corpuscular volume (MCV)on 12-15-2021 MCV (RBC) [Entitic vol] 88.2 fL 80-94 [facility] Work Phone: [phone] Erythrocyte sedimentation ra megan 12-15-2021 ESR (Bld) [Velocity] 29 mm[facility]h 0-20 [facility]: [phone] Hematocrit Auto (Bld) [Volum e fraction]on 12-15-2021 Hematocrit (Bld) [Volume fraction] 46.9 % 40-54 [facility] Work Phone: [phone] Interpretation of serum or p lasma protein pattern by immunofixation (narrative resulton 12-15-2021 Protein Fractions Immunofixation Manuel [Interp] See comment [facility] Work Phone: [phone] Comment on above: Due to the small adeola ntity of monoclonal protein, unable toquantitate the M-spike. Laboratory - Chemistry and C hemistry - challengeon 12-15-2021 ALP [Catalytic activity/Vol] 79 U/L 45-117 [facility] Work Phone: [phone] ALT [Catalytic activity/Vol] 29 U/L 16-61 [facility] Work Phone: [phone] CO2 [Moles/Vol] 29.0 mmol/L 21.0-32.0 [facility] Work Phone: [phone] Globulin (S) [Mass/Vol] 3.5 g/dL 2.2-4.2 [facility] Work Phone: [phone] Urea nitrogen/Creatinine [Mass ratio] 18.5 mg/mg 10-20 [facility] Work Phone: [phone] Laboratory - Hematology and Cell countson 12-15-2021 Erythrocyte distribution width (RBC) [Entitic vol] 42.9 fL 35.1-43.9 [facility] Work Phone: [phone] Erythrocyte distribution width (RBC) [Ratio] 13.2 % 11.6-14.6 [facility] Work Phone: [phone] Immature granulocytes/100 WBC (Bld) 0.700 % 0.0-0.9 [facility] Work Phone: [phone] Comment on above: IG% - Immature Granu locytes (promyelocytes, myelocytes and metamyelocytes) > 1% indicates that a LEFT SHIFT is Present. MCH (RBC) [Entitic mass] 28.4 pg 27.0-32.0 [facility] Work Phone: [phone] Nucleated RBC/100 WBC (Bld) [Ratio] 0 % 0-5 [facility] Work Phone: [phone] MCHC Auto (RBC) [Mass/Vol]on 12-15-2021 MCHC (RBC) [Mass/Vol] 32.2 g/dL 32-36 [facility] Work Phone: No Panel Informationon 12-15 Addendum Document Comment [facility] Work Phone: [phone] Comment on above: Protein electrophore sis scan will follow via computer,mail, or c wpf developer delivery. Centromere B Antibody <0.2 AI [facility] Work Phone: [phone] Endomysial IgA Antibody Negative Negative [facility] Work Phone: [phone] Estimated GFR (MDRD) Amer 95 mL/min >60 [facility] Work Phone: [phone] Comment on above: GFR Calc Estimated GFR (MDRD) Non-Af Amer 79 mL/min >60 [facility] Work Phone: Comment on above: Non- GFR Calc Immunoglobulin E 54 IU/mL [facility] Work Phone: Miscellaneous Test See comment [facility] Work Phone: Comment on above: TESTING PERFORMED AT [facility]. ORIGINAL REPORT ON FILE IN LAB CONTAINS ADDITIONAL TEST SITE INFORMATION. TEST RESULT [facility]'s IBDX Prognostic PanelgASCA 47 units 0-50 Negative [...] the relative reactivity of individual antibodies (1-4).1. Dotan I. et al. Gastroenterology. 2006; 131:366-3782. Elina M. et al. Gut. 2007; 56:1394-56656. Tyrone M. et al. Am J Gastroenterology. 2007; 102:1-174. Tamar Sharif. et al. World J Gastroenterology. 2008; 14:3656-6867This test was developed and its performance characteristics determined by [facility]. It has not been cleared or approved by the Food and Drug Administration. The FDA has determined that such clearance or approval is not necessary. Prostate Specific Antigen Total 2.84 ng/mL 0.0-4.0 [facility] Work Phone: Comment on above: This test was perfor med using the TPSA assay method for the[facility] system. Values obtained with differentassay methods cannot be used interchangably.When changing PSA assays in the course of monitoring apatient, additional sequential testing should be carriedout to confirm baseline values. OCCUPATIONAL THERAPY TECHNICIAN Antibody <0.2 [facility] Work Phone: [phone] Platelets bldon 12-15-2021 Platelets (Bld) [#/Vol] 250 10*3/uL 150-450 [facility] Work Phone: [phone] Serum DNA double strand anti body assay (units/volume)on 12-15-2021 DNA double strand Ab Qn (S) [IU]/mL [facility] Work Phone: Comment on above: Negative <5 Equivoca l 5 - 9 Positive >9 Serum Neha-1 antibody assay (u nits/volume)on 12-15-2021 Neha-1 extractable nuclear Ab Qn (S) <0.2 [facility] Work Phone: [phone] Serum Scl-70 extractable nuc lear antibody assay (units/volume)on 12-15-2021 SCL-70 extractable nuclear Ab Qn (S) <0.2 [facility] Work Phone: [phone] Serum Balderrama extractable nucl ear antibody detectionon 12-15-2021 Balderrama extractable nuclear Ab Ql (S) <0.2 [facility] Work Phone: [phone] Serum melvx-3-fktbgoik measu rement by electrophoresison 12-15-2021 Alpha 1 globulin Elph [Mass/Vol] 0.3 g/dL [facility] Work Phone: [phone] Alpha 1 globulin Elph [Mass/Vol] 0.8 g/dL [facility] Work Phone: [phone] Serum classic neutrophil cyt oplasmic antibody assay (units/volume)on 12-15-2021 Neutrophil cytoplasmic Ab.classic Qn (S) <1:20 titer Neg:<1:20 [facility] Work Phone: [phone] Serum globulin measurement ( mass/volume)on 12-15-2021 Globulin (S) [Mass/Vol] 2.9 g/dL [facility] Work Phone: [phone] Serum or plasma C reactive p rotein measurement (mass/volume)on 12-15-2021 CRP [Mass/Vol] 4.62 mg/L 0.0-3.0 [facility] Work Phone: [phone] Comment on above: C-Reactive Protein ( CRP) provides useful information for thediagnosis, therapy and monitoring of inflammatory processesand associated diseases. For the evaluation of Relative Riskfor Cardiovascular Disease, a High Sensitivity CRP (HSCRP)should be ordered. Serum or plasma IgA measurem ent (mass/volume)on 12-15-2021 IgA [Mass/Vol] 116 mg/dL [facility] Work Phone: [phone] Serum or plasma IgG measurem ent (mass/volume)on 12-15-2021 IgG [Mass/Vol] 821 mg/dL [facility] Work Phone: [phone] Serum or plasma IgM measurem ent (mass/volume)on 12-15-2021 IgM [Mass/Vol] 160 mg/dL [facility] Work Phone: [phone] Serum or plasma albumin andrez urement (mass/volume)on 12-15-2021 Albumin [Mass/Vol] 3.7 g/dL 3.2-5.0 [facility] Work Phone: [phone] Serum or plasma albumin/glob ulin mass ratioon 12-15-2021 Albumin/Globulin [Mass ratio] 1.1 {ratio} 0.9-2.4 [facility] Work Phone: [phone] Serum or plasma beta globuli n measurement by electrophoresis (mass/volume)on 12-15-2021 Beta globulin Elph [Mass/Vol] 0.9 g/dL [facility] Work Phone: [phone] Serum or plasma calcium andrez urement (mass/volume)on 12-15-2021 Calcium [Mass/Vol] 9.0 mg/dL 8.5-10.1 [facility] Work Phone: [phone] Serum or plasma creatinine m easurement (mass/volume)on 12-15-2021 Creatinine [Mass/Vol] 0.97 mg/dL 0.70-1.30 [facility] Work Phone: Comment on above: The validity of the calculated GFR & GFRAA in patients over 70 years has not been determined. Clinical correlation is essential. Serum or plasma gamma globul in measurement by electrophoresis (mass/volume)on 12-15-2021 Gamma globulin Elph [Mass/Vol] 0.9 g/dL [facility] Work Phone: Serum or plasma immunoelectr ophoresis interpretation (nominal result)on 12-15-2021 Interpretation IEP [Interp] Comment [facility] Work Phone: Comment on above: Immunofixation shows IgM monoclonal protein with kappalight chain specificity. Serum or plasma urea nitroge n measurement (mass/volume)on 12-15-2021 Urea nitrogen [Mass/Vol] 18 mg/dL 7-18 [facility] Work Phone: Serum perinuclear neutrophil cytoplasmic antibody titer by immunofluorescenceon 12-15-2021 Neutrophil cytoplasmic Ab.perinuclear IF (S) [Titer] <1:20 titer Neg:<1:20 [facility] Work Phone: Comment on above: The presence of posi tive fluorescence exhibiting P-ANCA orC-ANCA patterns alone is not specific for the diagnosis ofWegener's Granulomatosis (WG) or microscopic polyangiitis.Decisions about treatment should not be based solely onANCA IFA results. The [employer] Consensusrecommends follow up testing of positive sera with both MI-3 and MPO-ANCA enzyme immunoassays. As many as 5% serumsamples are positive only by EIA. Ref. AM J Clin Fwanyx3646;111:507-513. Serum tissue transglutaminas e IgA antibody assay (units/volume)on 12-15-2021 tTG IgA Qn (S) <2 U/mL [facility] Work Phone: Comment on above: Negative 0 - 3 Weak Positive 4 - 10 Positive >10 Tissue Transglutaminase (tTG) has been identified as the endomysial antigen. Studies have demonstr- ated that endomysial IgA antibodies have over 99% specificity for gluten sensitive enteropathy. Thin prep Papanicolaou smear with manual screeningon 12-15-2021 Thin prep Papanicolaou smear with manual screening 20 U/L 15-37 [facility] Work Phone: Thin prep Papanicolaou smear with manual screening 4 5-15 [facility] Work Phone: Thin prep Papanicolaou smear with manual screening 206 U/L 87-241 [facility] Work Phone: [phone] Thin prep Papanicolaou smear with manual screening 1.3 [facility] Work Phone: Total protein bloodon 2021 Protein [Mass/Vol] 6.5 g/dL [facility] Work Phone: No Panel Informationon 09-01 Prostate Specific Antigen Screen 2.71 ng/mL 0.00-4.00 [facility] Work Phone: Comment on above: This test was perfor med using the TPSA assay method for [employer] chemistry system. Values obtained with differentassay methods cannot be used interchangably.When changing PSA assays in the course of monitoring apatient, additional sequential testing should be carriedout to confirm baseline values. PROGRESSon 05-23-2019 PROGRESS HNO ID: [id number] Author: ALAN Brody (Ct) Service: ? Author Type: Clinical Refractive Surgeon Type: Progress Notes Filed: 05/23/2019 7:38 AM [...] PERIPHERAL IV DATA: Not applicable SIGNED BY: ALNA Brody May 23, 2019 7:38 AM [facility] XR KNEE 3V AP/LAT/CLINTON BILon 05-23-2019 XR [...] than left 2. Satisfactory appearing left [employer] Detailer: Notegraphy Transcribe Date/Time: May 23 2019 8:01A Dictated by : SHERYL CABRERA MD This examination was interpreted and the report reviewed and electronically signed by: SHERYL CABRERA MD on May 23 2019 8:03AM EST [id number] [facility] XR PELVIS 1V APon 05-23-2019 XR PELVIS 1V AP * * *Final Report* * * DATE OF EXAM: May 23 2019 7:36AM POPPY 5239 - XR PELVIS 1V AP / [...] than left 2. Satisfactory appearing left [employer] Detailer: Notegraphy Transcribe Date/Time: May 23 2019 8:01A Dictated by : SHERYL CABRERA MD This examination was interpreted and the report reviewed and electronically signed by: SHERYL CABRERA MD on May 23 2019 8:03AM EST [id number] [facility] Vital Signs Date Time Vital Sign Value Performing Clinician Facility 01-05-2025 20:27-0400 Body temperature 98.4 [degF] Dr. Mary Abernathy MD Work Phone: [facility] 01-05-2025 20:27-0400 Diastolic blood pressure 67 mm[Hg] Dr. Mary Abernathy MD Work Phone: [phone] [place] [address] 01-05-2025 20:27-0400 Heart rate 70 /min Dr. Mary Abernathy MD Work Phone: [phone] [address] 01-05-2025 20:27-0400 Respiratory rate 18 /min Dr. Mary Aberanthy MD Work Phone: [phone] [place] [address] 01-05-2025 20:27-0400 SaO2% (BldA) [Mass fraction] 95 % Dr. Mary Abernathy MD Work Phone: [facility] 01-05-2025 20:27-0400 Systolic blood pressure 135 mm[Hg] Dr. Mary Abernathy MD Work Phone: [facility] 01-05-2025 16:35-0400 Body height 180.[address] Mary Abernathy MD Work Phone: [facility] 01-05-2025 16:35-0400 Body mass index (BMI) [Ratio] 39.7 kg/m2 Dr. Mary Abernathy MD Work Phone: [facility] 01-05-2025 16:35-0400 Body weight 129.[address] Mary Abernathy MD Work Phone: [facility] 12-27-2024 16:06-0400 Body temperature 98.06 [degF] DR HEROSN HE MD [facility] 12-27-2024 16:06-0400 Diastolic Blood Pressure Non-Invasive 67 mm[Hg] DR HERSON HE MD [facility] 12-27-2024 16:06-0400 Heart rate 62 /min DR HERSON HE MD [facility] 12-27-2024 16:06-0400 Reason For Taking VItal Signs DR HERSON HE MD [facility] 12-27-2024 16:06-0400 Respiratory rate 20 /min DR HERSON HE MD [facility] 12-27-2024 16:06-0400 Systolic Blood Pressure Non-Invasive 104 mm[Hg] DR HERSON HE MD [facility] 12-27-2024 11:55-0400 Body temperature 97.34 [degF] DR HERSON HE MD [facility] 12-27-2024 11:55-0400 Diastolic Blood Pressure Non-Invasive 73 mm[Hg] DR HERSON HE MD [facility] 12-27-2024 11:55-0400 Heart rate 65 /min DR HERSON HE MD [facility] 12-27-2024 11:55-0400 Respiratory rate 18 /min DR HERSON HE MD [facility] 12-27-2024 11:55-0400 Systolic Blood Pressure Non-Invasive 119 mm[Hg] DR HERSON HE MD [facility] 12-27-2024 08:35-0400 Body temperature 97.7 [degF] DR HERSON HE MD [facility] 12-27-2024 08:35-0400 Diastolic Blood Pressure Non-Invasive 66 mm[Hg] DR HERSON HE MD [facility] 12-27-2024 08:35-0400 Heart rate 81 /min DR HERSON HE MD [facility] 12-27-2024 08:35-0400 Respiratory rate 18 /min DR HERSON HE MD [facility] 12-27-2024 08:35-0400 Systolic Blood Pressure Non-Invasive 110 mm[Hg] DR HEROSN HE MD [facility] 12-27-2024 04:34-0400 Heart rate 83 /min DR HERSON HE MD [facility] 12-26-2024 23:36-0400 Heart rate 80 /min DR HERSON HE MD [facility] 12-26-2024 10:45-0400 Body temperature 96.08 [degF] DR HERSON HE MD [facility] 12-26-2024 10:45-0400 Heart rate 76 /min DR HERSON HE MD [facility] 12-26-2024 10:26-0400 Body height 180.[address] HERSON HE MD [facility] 12-26-2024 10:26-0400 Body weight 127.[address] HERSON HE MD [facility] 12-26-2024 10:26-0400 Body weight 39.31 kg/m2 DR HERSON HE MD [facility] 12-26-2024 09:49-0400 Heart rate 86 /min DR HERSON HE MD [facility] 12-26-2024 09:35-0400 Heart rate 86 /min DR HERSON HE MD [facility] 12-26-2024 09:02-0400 Body temperature 97.34 [degF] DR HERSON HE MD [facility] 12-26-2024 09:00-0400 Respiratory Rate - Anes 0 br/min DR EHRSON HE MD [facility] 12-26-2024 08:55-0400 Respiratory Rate - Anes 10 br/min DR HERSON EH MD [facility] 12-26-2024 08:50-0400 Respiratory Rate - Anes 9 br/min DR HERSON HE MD [facility] 12-26-2024 08:45-0400 Body temperature 96.8 [degF] DR HERSON HE MD [facility] 12-26-2024 08:30-0400 Body temperature 96.8 [degF] DR HERSON HE MD [facility] 12-26-2024 08:15-0400 Body temperature 96.8 [degF] DR HERSON HE MD [facility] 12-26-2024 05:42-0400 Body height 180.[address] HERSON HE MD [facility] 12-26-2024 05:42-0400 Body temperature 97.88 [degF] DR HERSON HE MD [facility] 12-26-2024 05:42-0400 Body weight 127.[address] HERSON HE MD [facility] 12-26-2024 05:42-0400 Heart rate 76 /min DR HERSON HE MD [facility] 12-13-2024 08:46-0400 Body height 180.[address] HERSON HE MD [facility] 12-13-2024 08:46-0400 Body weight 127.[address] HERSON HE MD [facility] 12-13-2024 08:46-0400 Body weight 39.31 kg/m2 DR HERSON HE MD [facility] 11-29-2023 07:26-0400 Body height 180.[address] Mary Abernathy Work Phone: [facility] 11-29-2023 07:26-0400 Body weight 122.[address] Mary Abernathy Work Phone: [facility] 11-29-2023 07:10-0400 Body weight 122.[address] Mary Abernathy Work Phone: [facility] 11-29-2023 07:09-0400 Body mass index (BMI) [Ratio] 37.6 kg/m2 Dr. Mary Abernathy Work Phone: [facility] 11-26-2023 07:40-0400 Body mass index (BMI) [Ratio] 37.6 kg/m2 Dr. Mary Abernathy Work Phone: [facility] 11-19-2023 14:04-0400 Body mass index (BMI) [Ratio] 37.7 kg/m2 Dr. Mary Abernathy Work Phone: [facility] 11-19-2023 14:04-0400 Body weight 122.[address] Mary Abernathy Work Phone: [facility] 11-19-2023 14:04-0400 Diastolic blood pressure 69 mm[Hg] Dr. Mary Abernathy Work Phone: [facility] 11-19-2023 14:04-0400 Heart rate 74 /min Dr. Mary Abernathy Work Phone: [facility] 11-19-2023 14:04-0400 Respiratory rate 16 /min Dr. Mary Abernathy Work Phone: [facility] 11-19-2023 14:04-0400 Systolic blood pressure 150 mm[Hg] Dr. Mary Abernathy Work Phone: [facility] 08-26-2023 09:10-0500 Body mass index (BMI) [Ratio] 37.7 kg/m2 Dr. Mary Abernathy Work Phone: [facility] 08-20-2023 07:28-0500 Body weight 122.[address] Mary Abernathy Work Phone: [facility] 07-14-2022 11:07-0500 Body height 180.[address] Mary Abernathy Work Phone: [facility] Work Phone: 07-14-2022 10:58-0500 Body mass index (BMI) [Ratio] 40.2 kg/m2 Dr. Mary Abernathy Work Phone: [facility] Work Phone: 07-14-2022 10:58-0500 Body temperature 97.9 [degF] Dr. Mary Abernathy Work Phone: [facility] Work Phone: 07-14-2022 10:58-0500 Body weight 130.[address] Mary Abernathy Work Phone: [facility] Work Phone: 07-14-2022 10:58-0500 Diastolic blood pressure 76 mm[Hg] Dr. Mary Abernathy Work Phone: [facility] Work Phone: 07-14-2022 10:58-0500 Heart rate 98 /min Dr. Mary Abernathy Work Phone: [facility] Work Phone: 07-14-2022 10:58-0500 Respiratory rate 16 /min Dr. Mary Abernathy Work Phone: [facility] Work Phone: 07-14-2022 10:58-0500 SaO2% (BldA) [Mass fraction] 96 % Dr. Mary Abernathy Work Phone: [facility] Work Phone: 07-14-2022 10:58-0500 Systolic blood pressure 139 mm[Hg] Dr. Mary Abernathy Work Phone: [facility] Work Phone: 05-22-2022 11:30-0400 Diastolic blood pressure 90 mm[Hg] Dr. Mary Abernathy Work Phone: [facility] Work Phone: 05-22-2022 11:30-0400 Heart rate 77 /min Dr. Mary Abernathy Work Phone: [facility] Work Phone: 05-22-2022 11:30-0400 Respiratory rate 18 /min Dr. Mary Abernathy Work Phone: [facility] Work Phone: 05-22-2022 11:30-0400 SaO2% (BldA) [Mass fraction] 98 % Dr. Mary Abernathy Work Phone: [facility] Work Phone: 05-22-2022 11:30-0400 Systolic blood pressure 186 mm[Hg] Dr. Mary Abernathy Work Phone: [facility] Work Phone: 05-22-2022 10:33-0400 Body height 180.[address] Mary Abernathy Work Phone: [facility] Work Phone: 05-22-2022 10:33-0400 Body mass index (BMI) [Ratio] 39.9 kg/m2 Dr. Mary Abernathy Work Phone: [facility] Work Phone: 05-22-2022 10:33-0400 Body temperature 97.2 [degF] Dr. Mary Abernathy Work Phone: [facility] Work Phone: 05-22-2022 10:33-0400 Body weight 129.[address] Mary Abernathy Work Phone: [facility] Work Phone: 01-24-2022 13:11-0400 Body temperature 98.71 [degF] Bert Downing MD Work Phone: [facility] 01-24-2022 13:11-0400 Body weight 134.72 kg Bert Downing MD Work Phone: [facility] 01-24-2022 13:11-0400 Diastolic blood pressure 72 mm[Hg] Bert Downing MD Work Phone: [facility] 01-24-2022 13:11-0400 Heart rate 78 /min Bert Downing MD Work Phone: [facility] 01-24-2022 13:11-0400 Respiratory rate 16 /min Bert Downing MD Work Phone: [facility] 01-24-2022 13:11-0400 SaO2% (BldA) [Mass fraction] 97 % Bert Downing MD Work Phone: [facility] 01-24-2022 13:11-0400 Systolic blood pressure 132 mm[Hg] Bert Downing MD Work Phone: [facility] 12-01-2021 08:18-0400 Body temperature 98.8 [degF] Dr. Mary Abernathy Work Phone: [facility] Work Phone: 12-01-2021 08:18-0400 Diastolic blood pressure 61 mm[Hg] Dr. Mary Abernathy Work Phone: [facility] Work Phone: 12-01-2021 08:18-0400 Heart rate 80 /min Dr. Mary Abernathy Work Phone: [facility] Work Phone: 12-01-2021 08:18-0400 Respiratory rate 16 /min Dr. Mary Abernathy Work Phone: [facility] Work Phone: 12-01-2021 08:18-0400 SaO2% (BldA) [Mass fraction] 95 % Dr. Mary Abernathy Work Phone: [facility] Work Phone: 12-01-2021 08:18-0400 Systolic blood pressure 122 mm[Hg] Dr. Mary Abernathy Work Phone: [facility] Work Phone: 12-01-2021 07:16-0400 Body height 180.[address] Mary Abernathy Work Phone: [facility] Work Phone: 12-01-2021 07:16-0400 Body mass index (BMI) [Ratio] 39.6 kg/m2 Dr. Mary Abernathy Work Phone: [facility] Work Phone: 12-01-2021 07:16-0400 Body weight [address] Mary Abernathy Work Phone: [facility] Work Phone: Encounters Encounter Date Encounter Type Care Provider Facility Start: 02-08-2025 Non-patient / Non-visit Dr. Hitesh ZELAYA -[facility] Start: 02-08-2025 End: 02-08-[address] Mary Abernathy MD Work Phone: [facility] Work Phone: Start: 02-08-2025 End: 02-08-[address] Janey Sanders MD -Cardiovascular Services Work Phone: Start: 02-08-2025 End: 02-08-2025 ambulatory Janey Sanders Facility:[facility] Start: 01-25-2025 End: 01-25-[address] Mary Abernathy MD Work Phone: [facility] Work Phone: Start: 01-25-2025 End: 01-25-[address] Janey Sanders MD -Laboratory [facility] Start: 01-25-2025 End: 01-25-2025 ambulatory Janey Sanders Facility:[facility] Start: 01-05-2025 End: 01-05-2025 Emergency department patient visit Dr. Mary Abernathy MD Work Phone: -Emergency Department Work Phone: Start: 01-04-2025 End: 01-04-[address] Mary Abernathy MD Work Phone: [facility] Work Phone: Start: 01-04-2025 End: 01-04-[address] Janey Sanders MD -Laboratory [facility] Start: 01-04-2025 End: 01-04-2025 ambulatory Janey Sanders Facility:[facility] Start: 12-26-2024 End: 12-27-[address] MARY ABERNATHY MD Facility:[facility] Start: 12-26-2024 End: 12-27-[address] HERSON HE MD [facility] Start: 12-13-2024 End: 12-13-[address] HERSON HE MD [facility] Start: 12-13-2024 End: 12-13-[address] HERSON HE MD Facility:[facility] Start: 12-01-2024 End: 12-01-[address] Mary Abernathy MD Work Phone: [facility] Work Phone: Start: 12-01-2024 End: 12-01-[address] Mary Abernathy MD -Ultrasound, [facility] Work Phone: Start: 12-01-2024 End: 12-01-2024 ambulatory Mary Abernathy Facility:[facility] Start: 11-24-2024 End: 11-24-[address] Mary Abernathy MD Work Phone: [facility] Work Phone: Start: 11-24-2024 End: 11-24-2024 Patient encounter procedure Kp James WARPING MILL OPERATOR-C -Laboratory Work Phone: Start: 11-24-2024 End: 11-24-2024 ambulatory Kp James Facility:[facility] Start: 11-07-2024 End: 11-07-[address] Mary Abernathy MD Work Phone: [facility] Work Phone: Start: 11-07-2024 End: 11-07-[address] [facility] Start: 11-07-2024 End: 11-07-2024 ambulatory Mary Abernathy Facility:[facility] Start: 10-03-2024 ambulatory Mary Abernathy Facility: [facility] Start: 07-10-2024 End: 07-10-2024 ambulatory Pedro Segura Facility:[facility] Start: 07-10-2024 End: 07-10-2024 ambulatory Pedro Segura Facility:[facility] Start: 06-23-2024 End: 06-23-2024 ambulatory Kp James Facility:[facility] Start: 06-07-2024 End: 06-07-2024 ambulatory Pedro Segura Facility:[facility] Start: 06-07-2024 End: 06-07-2024 ambulatory Pedro Segura Facility:[facility] Start: 05-15-2024 End: 05-15-[address] MARY ABERNATHY MD Facility:[facility] Start: 05-03-2024 End: 05-03-2024 ambulatory KP Anastacia ERIKA SEARCH ENGINE MARKETING SPECIALIST-PAINT CREW SUPERVISOR Facility:[facility] Start: 05-03-2024 End: 05-03-2024 Patient encounter procedure KP Galaviz ERIKA SEARCH ENGINE MARKETING SPECIALIST-PAINT CREW SUPERVISOR [facility] Start: 04-25-2024 ambulatory KP GAUTHIER SEARCH ENGINE MARKETING SPECIALIST-PAINT CREW SUPERVISOR Facility:[facility] Start: 04-13-2024 End: 04-13-2024 ambulatory Mary Abernathy Facility:[facility] Start: 04-03-2024 End: 04-03-[address] MARY ABERNATHY MD Facility:[facility] Start: 12-23-2023 Non-patient / Non-visit Dr. Winnie Abernathy Work Phone: [facility] Work Phone: Start: 12-21-2023 Non-patient / Non-visit Dr. Winnie Abernathy Work Phone: [facility] Start: 12-21-2023 End: 12-21-[address] Mary Abernathy Work Phone: [facility] Work Phone: Start: 12-21-2023 End: 12-21-[address] Mary Abernathy Work Phone: [facility]-Cardiovascular Services Work Phone: Start: 11-29-2023 End: 11-29-2023 Admission to same day surgery center Dr. Mary Abernathy Work Phone: [facility]-Pole Classifier/Special Procedures Work Phone: Start: 11-29-2023 End: 11-29-[address] Mary Abernathy Work Phone: [facility] Work Phone: Start: 11-19-2023 End: 11-19-[address] Mary Abernathy Work Phone: [facility] Work Phone: Start: 10-19-2023 End: 10-19-[address] Mary Abernathy Work Phone: [facility] Work Phone: Start: 09-04-2023 Telephone encounter Jaylan bowen PA-C Work Phone: [facility] Comment on above: Results Start: 09-03-2023 End: 09-03-2023 ambulatory MARY ABERNATHY Facility:[facility] Start: 08-26-2023 End: 08-26-[address] Mary Abernathy Work Phone: [facility] Work Phone: Start: 04-27-2023 End: 04-27-2023 ambulatory [facility] Work Phone: Start: 04-27-2023 End: 04-27-2023 Patient encounter procedure [facility] Start: 04-09-2023 End: 04-09-2023 ambulatory [facility] Work Phone: Start: 04-09-2023 End: 04-09-2023 Patient encounter procedure [facility] Start: 03-23-2023 End: 03-23-2023 ambulatory [facility] Work Phone: Start: 03-23-2023 End: 03-23-2023 Patient encounter procedure [facility] Work Phone: Start: 07-14-2022 End: 07-14-[address] Mary Abernathy Work Phone: [facility] Start: 07-07-[address] Mary hicks Work Phone: [facility] Start: 06-18-2022 End: 06-18-[address] Mary Abernathy Work Phone: [facility] Start: 05-28-2022 Non-patient / Non-visit Dr. Winnie Abernathy Work Phone: [facility] Start: 05-28-2022 End: 05-28-[address] Mary Abernathy Work Phone: [facility]-Cardiovascular Services Start: 05-22-2022 End: 05-22-2022 Emergency department patient visit Dr. Mary Abernathy Work Phone: [facility]-Emergency Department Start: 05-22-2022 End: 05-22-[address] Mary Abernathy Work Phone: [facility] Start: 05-20-2022 End: 05-20-[address] Mary Abernathy Work Phone: [facility] Work Phone: Start: 05-20-2022 End: 05-20-[address] Mary Abernathy Work Phone: [facility] Start: 02-27-2022 End: 02-27-[address] Mary Abernathy Work Phone: [facility] Start: 01-25-2022 Telephone encounter Corrie Hair APRN.CNP Work Phone: [facility] Comment on above: Results Start: 01-24-2022 End: 01-24-2022 Patient encounter procedure Bert Downing MD Work Phone: [facility] Comment on above: Cough (Primary Dx); Exposure to confirmed case of COVID-19; Inflamed skin tag Start: 12-19-2021 End: 12-19-[address] Mary Abernathy Work Phone: [facility] Start: 12-15-2021 End: 12-15-[address] Mary Abernathy Work Phone: [facility]-Laboratory Start: 12-15-2021 End: 12-15-[address] Mary Abernathy Work Phone: [facility] Start: 12-01-2021 Non-patient / Non-visit Dr. Winnie Abernathy Work Phone: [facility] Start: 12-01-2021 End: 12-01-2021 Admission to same day surgery center Dr. Mary Abernathy Work Phone: [facility]-Endoscopy Start: 11-27-2021 Non-patient / Non-visit Dr. Winnie Abernathy Work Phone: [facility] Start: 10-08-2021 End: 10-08-[address] Mary Abernathy Work Phone: [facility] Start: 09-01-2021 End: 09-01-[address] Mary Abernathy Work Phone: [facility]-Laboratory, [place] [facility] Procedures Date Procedure Procedure Detail Performing Clinician Start: 01-05-[address] Mary Abernathy MD Work Phone: Start: 01-05-2025 CT angiography of ch est with contrast Dr. Mary Abernathy MD Work Phone: Start: 01-04-[address] Mary Abernathy MD Work Phone: Comment on above: According to the [facility] [employer],the reference interval for [...] diagnostic, especiallyat very low levels. The assay grain ii farmworker has found thatfour percent of individuals without [...] (disorder) DR HERSON HE MD Cholecystectomy KP GAUTHIER SEARCH ENGINE MARKETING SPECIALIST-PAINT CREW SUPERVISOR Colonoscopy DR HERSON Webb MD Inguinal herniorrhaphy KP JAMES SEARCH ENGINE MARKETING SPECIALIST-PAINT CREW SUPERVISOR Insertion of hip prosthesis KP JAMES SEARCH ENGINE MARKETING SPECIALIST-PAINT CREW SUPERVISOR Comment on above: left Plan of Treatment Date Care Activity Detail Author Start: 01-05-2025 [facility] Start: 11-29-2023 Patient discharge [facility] Start: 10-19-2023 Patient referral [facility] Work Phone: Start: 08-23-2023 Advance Directive Discussion Advance Directive Discussion [facility] Start: 08-23-2023 Depression Assessment Depression Ass essment [facility] Start: 04-23-2023 Covid-19 Vaccine ( season) Covid-19 Vaccine ( season) [facility] Start: 04-23-2023 Influenza vaccination Influenza Vacc ine (#1) [facility] Start: 01-24-2022 End: 02-07-2022 SARS-CoV-2 (COVID-19) RNA [Presence] in Respiratory specimen by ZOYA with probe detection 2019 CORONAVIRUS Microbiology Routine Cough Exposure to confirmed case of COVID-19 Expected: 01/24/2022, Expires: 02/07/2022 [facility] Work Phone: Comment on above: Expected: 01/24/2022 , Expires: 02/07/2022 Start: 12-01-2021 Colonoscopy w/biopsy single/multiple COLONOSCOPY AND BIOPSY [facility] Work Phone: Start: 12-01-2021 Colsc flx w/rmvl of tumor polyp lesion snare tq COLONOSCOPY W/LESION REMOVAL [facility] Work Phone: Start: 11-07-2021 COVID-19 VACCINE (4 - Booster for Pfizer series) COVID-19 VACCINE (4 - Booster for Pfizer series) [facility] Start: 08-23-2021 ADVANCE DIRECTIVE DISCUSSION ADVANCE DIRECTIVE DISCUSSION [facility] Start: 08-29-2019 Pneumococcal Vaccine : 65+ (2 of 2 - PCV) Pneumococcal Vaccine: 65+ (2 of 2 - PCV) [facility] Start: 2006 PNEUMOCOCCAL: 65+ (1 - PCV) PNEUMOCOCCAL: 65+ (1 - PCV) [facility] Start: 2001 RSV Vaccine (1 - 1-d ose 60+ series) RSV Vaccine (1 - 1-dose 60+ series) [facility] Start: 1991 SHINGRIX VACCINE (1 of 2) LICONA GRIX VACCINE (1 of 2) [facility] Start: 1986 DIABETES SCREEN DIABETES SCREEN [facility] Start: 1986 Diabetes Screening Diabetes Screenin g [facility] Start: 1960 Urine microalbumin profile [facility] Start: 1953 Adult depression screening assessment DEPRESSION SCREENING [facility] Catheterization of l eft [facility] MR Lumbar spine [facility] Patient Education [facility] Work Phone: Patient referral [facility] Work Phone: Procedure [facility] Work Phone: Thyroglobulin antibo dy measurement [facility] Thyroperoxidase Ab [Units/volume] in Serum or Plasma [facility] XR Spine Lumbar and Sacrum Views [facility] Work Phone: [facility] Immunizations Immunization Date Immunization Notes Care Provider Fa joseph 06-23-2024 influenza virus vacc ine, unspecified formulation DR HERSON HE MD [facility] 06-05-2022 influenza virus vacc ine, unspecified formulation Jaylan Todd PA-C Work Phone: [facility] 07-10-2021 SARS-CoV-2 mRNA (tozinameran) vaccine DR HERSON HE MD [facility] 05-23-2021 influenza virus vacc ine, unspecified formulation DR HERSON HE MD [facility] 10-17-2020 SARS-CoV-2 mRNA (tozinameran) vaccine DR HERSON HE MD [facility] 09-27-2020 SARS-CoV-2 mRNA (tozinameran) vaccine DR HERSON HE MD [facility] Comment on above: Result Comment: 2024: [id number] 06-15-2019 influenza virus vacc ine, unspecified formulation DR HERSON HE MD [facility] 08-29-2018 influenza virus vacc ine, unspecified formulation DR HERSON HE MD [facility] 08-29-2018 pneumococcal polysaccharide vaccine, [address] HERSON HE MD [facility] Payers Date Payer Category Payer Medicare [id number] 2024 Self-pay [id number] 2020 Unknown [id number] 2020 Unknown [id number] [id number] [id number] 2019 Unknown [employer] SUPPLEMENT [id number] 2019-Present [phone] [address] [place] [address] Indemnity [id number] [id number] 2006 Medicare [id number] 2006 Medicare MEDICARE MEDICAR E A AND B [id number] 2006-Present [phone] [address] [address] [place] [id number] Medicare [id number] [id number] 2006 Medicare [id number] 1.13.159.2.7.3.6 [id number] 1940 Unknown [id number] 2.16.840.1.421572.3.579.2.627 1940 Unknown [id number] 2.16840.1.597042.3.579.2.627 1940 Unknown [id number] 2.16.840.1.474455.3.579.2.627 1940 Unknown [id number] 2.16.840.1.993246.3.579.2.627 1940 Unknown [id number] 2.16.840.1.940596.3.579.2.627 1940 Unknown [id number] 2.16.840.1.711039.3.579.2.627 Unknown [id number] Unknown [id number] 2.16.840.1.861484.3.579.2.462 Unknown [id number] 2.16.840.1.557249.3.579.2.462 Unknown [id number] 2.16.840.1.544820.3.579.2.462 Unknown [id number] 2.16.840.1.744147.3.579.2.462 Unknown [id number] 2.16.840.1.286946.3.579.2.462 Unknown [id number] 2.16.840.1.489966.3.579.2.462 Unknown [id number] 2.16.840.1.343472.3.579.2.462 Unknown [id number] 2.16.840.1.473046.3.579.2.462 Unknown [id number] 2.16.840.1.963382.3.579.2.462 Unknown [id number] 2.16.840.1.971484.3.579.2.462 Unknown [id number] 2.16.840.1.026703.3.579.2.462 Unknown [id number] 2.16.840.1.347461.3.579.2.462 Unknown [id number] 2.16.840.1.054278.3.579.2.462 Unknown [id number] 2.16.840.1.316589.3.579.2.462 Unknown [id number] 2.16.840.1.980923.3.579.2.462 Social History Date Type Detail Facility Start: 11-26-2021 End: 11-29-2023 Tobacco smoking status KSIS Unknown if ever smoked [facility] Start: 1940 Sex Assigned At Male [facility] Start: 01-24-2022 End: 01-05-2025 Tobacco smoking status KSIS Never smoked tobacco [facility] Work Phone: Start: 01-24-2022 End: 09-03-2023 Tobacco use and exposure Smokeless tobacco non-user [facility] Work Phone: Start: 1940 Sex Assigned At Not on file [facility] Start: 07-31-2020 End: 09-03-2023 History of Social function [facility] Start: 07-31-2020 End: 09-03-2023 Tobacco use panel [facility] National Score (1-10 0), lower number is lower risk Not on file [facility] Start: 11-16-2024 End: 12-04-2024 Sex Male (finding) [facility] Status Date Assessment Result Facility 12-27-2024 [facility] 12-27-2024 Functional Status Non-Slip footw ear, supervised while toileting, Room check performed [facility] 12-27-2024 Functional Status Leticia [facility] 12-27-2024 Functional Status Leticia [facility] 12-27-2024 Functional Status Leticia [facility] 12-26-2024 Functional Status Leticia [facility] 12-26-2024 Functional Status Min A [facility] 12-26-2024 Functional Status Single level home [facility] 12-26-2024 Functional Status Compression ga rments, ice on, tension pillow in place [facility] 12-26-2024 Functional Status Leticia [facility] 12-26-2024 Functional Status Maintained [facility] 12-13-2024 Functional Status Sensory Deficits None A [facility] Mental Status Date Assessment Result Facility 12-27-2024 Mental Status Oriented x 4 [facility] 12-26-2024 Mental Status [facility] 12-26-2024 Mental Status [facility] 05-22-2022 Cognitive function Level Of Cons ciousness Awake;Alert;Appropriate [facility] Work Phone: 12-01-2021 Cognitive function Voice/Name [facility] Work Phone: Clinical Notes 01-24-2022 to 01-05-2025 Note Date & Type Note Facility 01-05-2025 Radiology Diagnostic study note [facility] Imaging Services [address] [place] [address] CTA Chest W/WO Contrast MR#: [id number] Acct: [id number] Name: LUC GANNON Rep #: [id number] : 1940 M 84 From: Shahnaz Copeland MD PCP: Dr. Janey Sanders MD Status: RE G ER Study:CTA Chest W/WO Contrast Date of Exam: 01/05/25 Exam# [id number] Ordering Dr: Bri Carbajal DO PROCEDURE: CTA [...] acute findings in the thorax. Reading [facility] CC: Dr. Janey Sanders MD; Dr. 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 Follow-up as scheduled. Follow Up with JANEY SANDERS MD When:01/04/2025 11:10 AM EDT Where:[address] [place] [address]- [phone] Additional Information: This is your post-hospital follow-up appointment to recheck your labwork. Follow Up with YOSEF SALMON PA-C, Orthopedic When:01/08/2025 01:15 PM EDT Where:[facility] [address] [place] [address]- Additional Information: This is your post-op appointment. [...] bowel movement, then as needed Pickup at [facility]/pharmacy #3321 today @ 0830 New famotidine (Pepcid 20 mg oral tablet) 1 tab(s) by mouth Once a day Pickup at [facility]/pharmacy #3321 today @ 0830 New meloxicam (Mobic 7.5 mg oral tablet) 1 tab(s) by mouth Twice daily with meals Do not take any other nonsteroidal anti-inflammatories while on meloxicam/ Mobic. Pickup at [facility]/pharmacy #3321 Changed acetaminophen (Tylenol) 1,000 Milligram by mouth Three (3) times a day not to exceed 3000 mg/ day today @ 3p Changed oxyCODONE (oxyCODONE 5 mg oral tablet ( IMMEDIATE release )) See instructions S/P total right hip arthroplasty 1-2 tab(s) Oral q4h, As needed for as needed for pain Pickup at [facility]/pharmacy #3321 today @ 5a Unchanged [...] Once a day yesterday @9p Pharmacy Information [facility]/pharmacy #3321: [address] [place], [place] [phone] Please take this list to your next doctor s visit. Bring all medications you take, including over the counter medications, herbals and other supplements with you to your doctor s visit. Patients and families are reminded to discard old lists and to update any records with all medication providers or retail pharmacies. Medication Leaflets oxycodone (ox jane UMANZOR done) Oxaydo, OxyCONTIN, Roxicodone, RoxyBond, Xtampza ER [...] were not tolerated. Extended-release oxycodone is for sdtpyn-gfq-ufihv treatment of severe and chronic pain that [...] by your doctor. Stop taking all other iwwpcf-gng-qlnzp opioid pain medicines when you start taking [...] may report side effects to FDA at 9-348-DPI-6164. What other drugs will affect oxycodone? You [...] may affect oxycodone. This includes prescription and kiet-gim-blyiewc medicines, vitamins, and herbal products. Not all [...] to ensure that the information provided by [employer]. ('[employer]') is accurate, up-to-date, and complete, but no guarantee is made to that effect. Drug information contained herein may be time sensitive. [employer] information has been compiled for use by healthcare practitioners and consumers in the [place] and therefore [employer] does not warrant that uses outside of the [place] are appropriate, unless specifically indicated otherwise. [employer]'s drug information does not endorse drugs, diagnose patients or recommend therapy. [facility] drug information is an informational resource designed [...] effective or appropriate for any given patient. [facility] does not assume any responsibility for any aspect of healthcare administered with the aid of information [facility] provides. The information contained herein is not intended to cover all possible uses, directions, precautions, warnings, drug interactions, allergic reactions, or adverse effects. If you have questions about the drugs you are taking, check with your doctor, nurse or pharmacist. Copyright 5874-2478 [employer]. Version: 17.. Revision Date: 09/14/2023. Education Materials [facility] Post-operative Instructions PLEASE FOLLOW [facility] POST-OP INSTRUCTIONS GIVEN WATCH FOR SIGNS OF INFECTION: call the office ([phone]) if experencing any of the following: (Usually [...] on your follow up instructions. Form: 338A (53942) R: 12/27 Additional Information VACCINATE! IT SAVES LIVES! Members of the community who have not yet received the COVID-19 vaccine and would like to receive it can visit one of [facility] vaccine clinics. There are many vaccine clinic locations within the [facility]. For locations and available times, please visit https://gettheshot.coronavirus.o hio.gov/. It is important to note that some COVID mobile vaccine clinics are held outdoors and may be canceled in rainy or stormy conditions. To learn more about pediatric vaccinations (ages 5-11), we invite you to visit the [facility] webpage. https://www.[facility].org/p ages/6643-Nxjqw-Ecijnmpojeo-Freq nwfgeq-Mtoic-Ezgzhfpdy.html To learn more about the COVID-19 vaccine, we invite you to visit the CDC website for a list of frequently asked questions.https://www.cdc.gov/co ronavirus/2019-ncov/vaccines/faq .html [facility] Patient Portal Access Instructions: Stay connected with your healthcare team and access your personal medical information anytime with the [facility] Patient Portal. Please follow the directions below to create your [employer] account: 1.Access the email account you provided upon registration to the hospital/physician office.2.Look for an invitation email from [facility].3.Open the email and access the invitation link: Accept Invitation to [facility].4.Fill in the required abdul to create your account. To access your account, visit [email or web address]. Click the blue button labeled Access Patient [...] you will allow to register on the [facility] Patient Portal for access to your information. You can also access the [facility] Patient Portal on the [facility] florina. Simply click on Patient Portal and then log into your account. If you would like to receive a full copy of your medical records, please contact the [facility] Medical Records Department by calling [phone], Wednesday through Wednesday between 8 a.m. and [...] Call your local pharmacy or go to http://bit.Arista Power/0Y8Zb7k to find one close to you.3.Make use of household items: Use cat litter or old coffee grounds to dispose medications if other options are not available. Mix your drugs with these household products, seal them in an airtight container and throw it into the garbage. Call [facility]: [phone] to be sure your drugs can be [...] CHART COPY. Signatures Patient Education Materials Enid Benson Post-op Instruction 03/2017 (16839) Medication Leaflets oxycodone My discharge plan and instructions have been reviewed and explained to me and I,LUC GANNON understand my current condition and have read and understand these discharge instructions. I have received a written copy of the plan/instructions. If I have questions, I am aware that I should contact my doctor. Patient/Welding Technician Signature: Date/Time: Relationship to Patient: Witness Name/Signature: Date/Time: [facility] 12-27-2024 Note Date of Service December [...] Output (Last 24 hours) Intake Administration Information 2103. Supplement Intake 360.00 Output Urine Voided 275.00 Intra-Op EBL 200.00 Urine Count 2.00 Total Summary Total Intake 2464.58 Total Output 475.00 Fluid Balance 1988. Physical Exam Vital signs stable, afebrile SCD's [...] Patient wanted his narcotic medication sent to [facility] in [place]. We have had significant difficulties with sending postoperative narcotic medications to this facility. He then decided to send it to [facility]. Patient will follow-up per postoperative instructions. He [...] YOSEF SALMON PA-C on 12/27/2024 08:05 AM [facility] 12-27-2024 Hospital Discharge instructions Patient Education 12/27/2024 08:05:57 5 - [facility] Post-op Instruction 03/2017 (40763) [facility] Post-operative Instructions PLEASE FOLLOW [facility] POST-OP INSTRUCTIONS GIVEN WATCH FOR SIGNS OF INFECTION: call the office ([phone]) if experencing any of the following: (Usually [...] on your follow up instructions. Form: 338A (75696) R: 12/27 Follow Up Care 12/11/2024 07:55:03 With:[facility] Address: [address] [place] [phone] When:12/28/2024 10:15:00 Comments:This is your first physical therapy appointment. Follow-up as scheduled. With:JANEY SANDERS MD Address: [address] [facility] [address] [place] [phone] When:01/04/2025 11:10:00 Comments:This is your post-hospital follow-up appointment to recheck your labwork. With:YOSEF SALMON PA-C, Orthopedic Address: [facility] [address] [place] [address] [place] [address]- When:01/08/2025 13:15:00 Comments:This is your post-op appointment. Follow-up as scheduled. [facility] 12-27-2024 Pastoral care Progress note Pastoral Care Note Entered On: 12/27/2024 9:55 EDT Performed On: 12/27/2024 9:53 EDT by Yosef Pryor Pastoral Care Type of Pastoral Visit : Initial visit Spiritual Care Visit Initiated by : Consumer Relations Specialist Spiritual Care Reason for Visit : General [...] by Yosef Pryor on 12/27/2024 09:53 AM [facility] 12-27-2024 Note Date of Service December [...] Patient wanted his narcotic medication sent to [facility] in [place]. We have had significant difficulties with sending postoperative narcotic medications to this facility. He then decided to send it to [facility]. Patient will follow-up per postoperative instructions. He [...] YOSEF SALMON PA-C on 12/27/2024 08:05 AM [facility] 12-26-2024 Note Exam Date Time Procedure Performing Provider Status 12/26/24 10:59 AM XR Fluoro 1-2 Hrs Tech Time Modified [id number] ORIGINAL Images acquired, not reported on this accession number. [facility]05-06-2025 Note* Exam Date Time Procedure Performing Provider Status 12/26/24 9:33 AM XR Hip Right w/Pelvis 4 Views SANJAY CURRY MD; Auth (Verified) [id number] ORIGINAL EXAMINATION: 2 XRAY VIEWS OF THE [...] 12/26/2024 9:42:17 AM Ordering Provider: HERSON HE [facility]05-06-2025 Anesthesiology Consult note Patient: LUC GANNON Age: 84 years Sex: Male : 1940 Associated Diagnoses: None Author: WATSON CONRAD APRN-FIREFIGHTER Preoperative Information Time of last food or [...] Problem list: Medical Diabetes / SNOMED CT 767729570 / Confirmed Hyperthyroidism / SNOMED CT 68462338 / Confirmed, Active Problems (3) Diabetes Hyperthyroidism Osteoarthritis Histories Past Medical History: No active or resolved past medical history items have been selected or recorded. Family History: Heart disease Mother Son Heart attack Sister Mother Procedure history: Hip replacement ([id number]). Comments: 04/03/2024 15:01 EDT - Ashleigh Barry LPN left Cholecystectomy (54440816). Inguinal herniorrhaphy (4342118090). Colonoscopy (325877892). Cataracts (1604143477). Social History: Social & Psychosocial Habits Alcohol [...] Signs (last 24 hrs) Last Charted Temp Nswsafjf31.6 DegC (DECEMBER 26 05:42) Heart Rate Anwwnjnhe99 bpm (DECEMBER 26 07:30) SBP84 mmHg (DECEMBER 26 07:30) DBP51 mmHg (DECEMBER 26 07:30) Measurements from flowsheet : Measurements 12/26/2024 5:42 EDT Height 180.3 cm Admission Weight 127.8 kg [place] Body Weight 75.26 kg Admission Body Mass [...] Attendee SN - CAt - Role Performed FIREFIGHTER 12/26/2024 6:50 EDT SN - MO - Route of Administration Local SN - MO - Route of Administration Local SN - MO - By (Single) SN - MO - By (Single) SN - MO - By (Single) SN - MO - By (Single) 12/26/2024 6:48 EDT SN [...] Surgeon SN - CAt - Role Performed Inspector Rag Sorting 1 SN - CAt - Role Performed Inspector Rag Sorting 2 SN - CAt - Role Performed Scrub 2 SN - CAt - Role Performed Scrub 1 SN - CAt - Role Performed Recycling Crew Supervisor 1 SN - CAt - Role Performed Physician Mechanical Cad Drafter 12/26/2024 6:40 EDT Continuous IV Infusions LR [...] Person #1 We May Share SHERLEY GANNON [phone] Designated Person #1 Relationship Son Privacy Restrictions Requested None Status N/A Sensory Deficits None Diagnosed With Sleep Apnea Yes Advanced Directives Yes Advance Directive Type [facility] Power of Electrolysis Needle Operator for [place], [place] Declaration (Living Will) Advance Directive Location [...] evident Teaching Method Explanation Preferred Spoken Language Citizen Of [place] Preferred Written Language Citizen Of [place] Teaching Evaluation Needs further teaching Safety Brochure [...] Allergies Yes Anesthesia Extension Set Applied Yes Entry Level Sales Consultant On Yes Consent Form Signed Yes Patient [...] Height 180.3 cm Admission Weight 127.8 kg [place] Body Weight 75.26 kg Admission Body Mass [...] Urinary Elimination Voiding with difficulties Skin Description [place], Dry Skin Temperature Warm Skin Integrity Intact Mucous Membrane Color [place] Skin Moisture General Dry Characteristics of Speech [...] locked, Non-Slip footwear . Assessment and Plan [place] [employer] Anesthesiologists (ASA) physical status classification: Class III. Anesthetic Preoperative Plan Anesthetic technique: Spinal. Informed consent: signed by patient. Digitally Signed by WATSON CONRAD on 12/26/2024 07:40 AM [facility]04-11-2025 Radiology Diagnostic study note [facility] Imaging Services [address] [place] [address] [id number] Testicular with Arterial Flow MR#: [id number] Acct: [id number] Name: LUC GANNON Rep #: [id number] : 1940 M 84 From: Kasey Guzmán MD PCP: Dr. Mary Abernathy MD Status: REG CLI Study:Testicular with Arterial Flow Date of E xam: 12/01/24 Exam# [id number] Ordering Dr: Mary Abernathy MD PROCEDURE: TESTICULAR [...] recommend evaluation with focused ultrasound. Reading Location: [id number] CC: Dr. Mary Abernathy MD ~ Automobile Detailer: Signed [facility]03-18-2025 Radiology Diagnostic study note [facility] Imaging Services [address] [place] [address] [id number] Hips B/L min 2 views w/ Pelvis MR#: [id number] Acct: [id number] Name: LUC GANNON Rep #: [id number] : 1940 84 From: Halle Recinos MD PCP: Dr. Mary Abernathy MD Status: REG CLI Study:Hips B/L min 2 views w/ Pelvis Date of Exam: 11/07/24 Exam# [id number] Ordering Dr: Mary Abernathy MD EXAM: XR [...] 2. Degenerative changes as above. Reading Location: [facility] CC: Dr. Mary Abernathy MD ~ Automobile Detailer: Signed [facility]01-14-2024 Miscellaneous Notes* Telephone Encounter - Jennifer Perdomo - 09/05/2023 8:30 AM EST Left detailed message on a secured voicemail. Jennifer Zeina * Telephone Encounter - Jennifer Perdomo - 09/04/2023 8:24 AM EST Left message for patient to return call. Jenniferantonio Perdomo * Telephone Encounter - Jaylan Todd PA-C - 09/04/2023 8:18 AM EST Please call let patient know he tested positive for influenza A. He is out of the window for Tamiflu treatment. Recommend continuing plan of care as discussed at visit. If not improving follow-up with primary doctor. documented in [facility]24 NoteHNO ID: [id number] Author: ALEXANDER WILL APRN.PAINT CREW SUPERVISOR Service: ? Author Type: Nurse Practitioner Type: [...] started abruptly. Patient states they have used [id number] medication with some success. Temp today of [...] of care. This note was generated using Scir[employer] software. It ma (more content not included)...[facility] 01-25-2022 Miscellaneous Notes* Telephone Encounter - [...] ER. Corrie Hair APRN.CNP documented in this encounterK[facility]06-04-[facility] History of Present illness Narrative* Bert Downing [...] dermatology. Bert Downing MD documented in this encounterK[facility] CenterEvaluation + Plan note Future Appointments Appointment Date:05/04/2024 09:30:00 AM Scheduled Provider: Location:[facility] Appointment Type:yyNM Thyroid Image w/ Uptake Multiple S2 Appointment Date:05/15/2024 10:00:00 AM Scheduled Provider:KP JAMES APRN-PAINT CREW SUPERVISOR Location:[facility] Appointment Type:ENDO OV Future Scheduled Tests Laboratory* Thyrotropin Receptor Ab, Serum 05/07/24 * Thyroid Stimulating Hormone 05/07/24 * Free T4 05/07/24 * Free T3 05/07/24 [facility] Evaluation + Plan note Future Appointments Appointment Date:03/08/2025 10:45:00 AM Scheduled Provider:DANIEL ANDRADE MD Location:[facility] Appointment Type:ENDO OV Future Scheduled Tests Laboratory* Thyroid Stim Immunoglobulin 03/01/25 * Thyroid Stimulating Hormone 03/01/25 * Thyroid Stimulating Hormone 05/07/24 * Free T4 03/01/25 * A1C Hemoglobin 03/01/25 * Free T3 03/01/25 * Vitamin D Level 03/01/25 * Complete Metabolic Panel 03/01/25 * anti-Thyroid Peroxidase 03/01/25 Radiology* IR Thyroid Biopsy 05/15/24 [facility] Evaluation note* Diagnosis Onset Date Resolution Status Diarrhea acute [facility] Work Phone: Evaluation note* Diagnosis Onset Date Resolution Status Diarrhea acute Diarrhea acute Dysuria [facility] Work Phone: Evaluation note* Diagnosis Cough- Primary Exposure to confirmed case of COVID-19 Inflamed skin tag Unspecified hypertrophic and atrophic condition of skin documented in this encounter [facility]* Diagnosis Onset Date Resolution Status Crohn disease chronic [facility] Work Phone: Evaluation note* Diagnosis Onset Date Resolution Status Crohn disease chronic Monoclonal gammopathies manifold builder ale [facility] Work Phone: Evaluation noteNo assessment information available [facility] Work Phone: Evaluation note* Diagnosis Onset Date Resolution Status Myelopathy acute Other intervertebral disc degeneration, 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 Spondylolisthesis, lumbar region acute HTN (hypertension), benign a cute Palpitations acute Shortness of breath on exertion acute [facility] Work Phone: Evaluation note* Diagnosis Onset Date Resolution Status Lumbar disc herniation with radiculopathy acute Spondylolisthesis, lumbar region acute HTN (hypertension), benign a cute Palpitations acute Shortness of breath on exertion acute [facility] Work Phone: Hospital course Narrative No data available for this section [facility] Hospital Discharge instructions Additional Instructions Continue [...] Follow-up with your cardiology appointment and your echocardiogram.[facility] Work Phone: Hospital Discharge instructions No data available for this section [facility] Hospital Discharge instructions Additional Instructions Thank [...] care physician for further outpatient evaluation and management.[facility] Work Phone: Progress note No data available for this section [facility] Reason for referral (narrative)No reason for referral information availableWMagruder [facility] Work Phone: Summary Purpose Family History [...] Response Recorded Date/ Time Living Will No November 26, 2021 2:27pm Power of Electrolysis Needle Operator No November 26 2:27pm Advance Directive Response Recorded Date/ Time Living Will No May 22, 2022 11:11am Power of Electrolysis Needle Operator No April 11:11am Advance Directive Response Recorded Date/ Time Living Will No May 22, 2022 10:11am Power of Electrolysis Needle Operator No April 10:11am Advance Directive Response Recorded Date/ Time Advance Directives No November 28 7:26am Living Will No November 29, 2023 7:26am Power of Electrolysis Needle Operator No November 28 7:26am Advance Directive Response Recorded Date/ Time Advance Directives No November 28 7:26am Advance Directive Response Recorded Date/ Time Do you have a Healthcare Power of Electrolysis Needle Operator? No January 05, 2025 5:16pm Advance [...] 3:21pm sob January 05, 2025 4:34p m Chief Complaint Admit Date pain- BOTH HIPS November 07, 2024 10: 12am RIGHT SCROTAL SWELLING December 01, 2024 3:21pm sob January 05, 2025 4:34p m CHF February 08, 2025 7:02 am Health Concerns Infection Onset Date Last Indicated [...] section and content) DATE CREATED AUTHOR 05/24/2019 [facility] DATE CREATED AUTHOR AUTHOR'S ORGANIZ ATION 09/05/2023 [facility] DATE CREATED AUTHOR AUTHOR'S ORGANIZ ATION 04/25/2024 [facility] ([place]) DATE CREATED AUTHOR AUTHOR'S ORGANIZ ATION 05/19/2024 [facility] DATE CREATED AUTHOR AUTHOR'S ORGANIZ ATION 01/17/2025 [facility] DATE CREATED AUTHOR AUTHOR'S ORGANIZ ATION 02/16/2025 [facility] Goals (unrecognized section and content) Goals may [...] or prosecute any alcohol or drug abuse patient.[facility] CenterIn the event this information is protected by the Federal Confidentiality of Alcohol and Drug Abuse Patient Records regulations: The Federal rules restrict any use of the information to criminally investigate or prosecute any alcohol or drug abuse patient.[facility] CenterIn the event this information is protected by the Federal Confidentiality of Alcohol and Drug Abuse Patient Records regulations: The Federal rules restrict any use of the information to criminally investigate or prosecute any alcohol or drug abuse patient.[facility] Reason for Visit (unrecogniz ed section and [...] January 05, 2025 End: January 05, 2025 Instrument Processing Tech Relationship Specialty Start Date End Date Mary Abernathy [address] [place] [address] PCP - General Family Practice 05/12/19 Instrument Processing Tech Relationship Specialty Start Date End Date Mary Abernathy [address] [place] [address] PCP - General Family Practice 05/12/19 Team [...] Primary Care Provider, Attendin g Provider Active Instrument Processing Tech Relationship Specialty Start Date End Date Mary Abernathy [address] [place] [address] PCP - General Family Medicine 05/12/19 Team [...] MD Primary Care Provider Active Gisella Brown WARPING MILL OPERATOR, WARPING MILL OPERATOR-C Attending Provider Active Team Status: Inactive [...] January 05, 2025 End: January 05, 2025 Team Status: Inactive Member Role Status Dates Dr. Janey Sanders MD Primary Care Provider Active Start: January 25, 2025 End: January 25, 2025 Dr. Janey Sanders MD Attending Provider Active Start: January 25, 2025 End: January 25, 2025 Dr. Janey Sanders MD Referring Provider Active Start: January 25, 2025 End: January 25, 2025 Team Status: Inactive Member Role Status Dates Dr. Janey Sanders MD Primary Care Provider Active Start: February 08, 2025 End: February 08, 2025 Dr. Janey Sanders MD Attending Provider Active Start: February 08, 2025 End: February 08, 2025 Dr. Janey Sanders MD Referring Provider Active Start: February 08, 2025 End: February 08, 2025 Team Status: Active Member Role Status Dates Dr. Janey Sanders MD Primary Care Provider Active Start: February 08, 2025 Dr. Obinna Baltazar MD Attending Provider Active S tart: February 08, 2025 FOR RECORDS PERTAINING TO PATIENTS WHO [...] BE BASED ON THE PRIMARY CLINICAL RECORDS. [facility] [employer] [facility]. provides no warranty or guarantee of the accuracy or completeness of information in this document.
--- NOTE | 2025-03-01 23:19 | RAD_ITS ---
PROCEDURE: CHEST PA AND LATERAL 03/01/2025 REASON FOR EXAM: CHEST PAIN TECHNIQUE: CHEST PA AND LATERAL COMPARISON: Chest x-ray 11/19/2023. CT thorax 01/05/2025. FINDINGS: Lungs/Pleura: Clear. No pneumothorax or sizable pleural effusion. Heart/Mediastinum: Borderline cardiomegaly. Mildly tortuous and calcified thoracic aorta. Calcified mediastinal and perihilar lymph nodes. 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 Slight leftward deviation of the trachea. Bones/Soft tissues: Mild degenerative changes of the spine. RAD/Chest PA and Lateral IMPRESSION: No evidence of acute cardiopulmonary disease. Ancillary findings noted above. Reading Location: [id number]
[2025-03-01 23:23] VITALS: BP 114/49; PULSE 89; RESP 14; O2SAT 100
[2025-03-01 23:37] LABS: Magnesium 2.7 mg/dL (1.5-2.2); Pro- Brain NATRIURETIC PEPTIDE 2715 pg/mL (<=1800)
[2025-03-01 23:58] LABS: Anion Gap 16 (5-15); BUN 75 mg/dL (4-19); BUN/Creat Ratio 39.5 RATIO (10-20); Calcium,Total 9.7 mg/dL (7.6-11.0); Carbon Dioxide 21.0 mmol/L (21.0-32.0); Chloride 103 mmol/L (98-108); Estimated Creatinine Clearance 31.21 ml/min (50-250); Glucose 174 mg/dL (70-99); Potassium 4.6 mmol/L (3.3-5.1)
[2025-03-02] VITALS (12 sets, daily range): BP systolic 113–146; BP diastolic 50–74; PULSE 57–81; RESP 14–19; TEMP 36.4–36.7; O2SAT 97–99; BMI 37.4; BMI 37.8
[2025-03-02 00:49] LABS: Troponin T High Sensitivity 51 ng/L (<=22)
[2025-03-02 01:37] LABS: Troponin T High Sens 2 HR 233 ng/L (<=22)
--- NOTE | 2025-03-02 01:59 | PCM.HP.STD ---
[facility] - General General Date of Admission: 03/02/25 Date of Service: 03/02/25 Chief Complaint: Chest pain HPI Narrative EULALIO GIRON, is a 84 M who presented to [facility] ED on 03/02/2025 with chest pain. Medical history is significant for nonobstructive CAD, HFpEF, hypertension, hyperlipidemia and type 2 diabetes mellitus. Has followed with our cardiology group in the past, last saw them in October 2023. He had findings concerning for coronary disease at that time and had a diagnostic left heart cath done on 11/28 that showed only mild 30% disease in the LAD and RCA. Echo then showed EF 60%, mildly elevated pulmonary pressures, otherwise unremarkable. More recently patient was seen in the ED here in mid December for shortness of breath on exertion. BNP was borderline elevated, though chest imaging showed no signs of pulmonary edema or heart failure. His home Lasix was increased from 20 mg to 40 mg at that time. Had repeat echo done on 02/08 that showed EF 55%, stage I diastolic dysfunction, mild elevated pulmonary pressures, otherwise unremarkable. However he continued to have lower extremity swelling so his PCP increased his dose of Lasix to 80 mg daily. Patient presents today from home with episode of chest pain that lasted about an hour. He has had intermittent episodes of chest pain in the past lasting 15 to 30 minutes but nothing lasting this long. Was given nitro en route to the hospital with mild to moderate relief of pain. On arrival to the ED he was mildly hypertensive to the 150s systolic but otherwise stable on room air at rest. CBC was benign. BMP notable for creatinine 1.91 (baseline around 1.1) and BUN 75. Importantly, troponin trend 51 > 233. BNP elevated at 2715, though this is slightly improved from 3102 on 02/26. Chest x-ray was unremarkable with no volume overload noted. EKG showed normal sinus rhythm with no ST changes. Given concern for NSTEMI, patient was started on heparin drip and plan is for left heart cath with cardiology tomorrow. Hospitalist was then contacted for admission. I saw the patient at bedside in the ED, 2 other family members were present. Patient was sitting up comfortably in bed, conversing normally, in no acute distress. Reported very mild chest pain currently, much improved from earlier today. Denied any lightheadedness or dizziness. Noted that his legs still feel slightly swollen but are much improved from a week or 2 ago. He does note that he has felt very thirsty over the past several days. Denies any shortness of breath. Denies any other acute concerns currently. Will be admitted for further management. [facility] Thyroid nodule Palpitations Crohn disease Arthritis Back pain Syncope Abdominal pain Shortness of breath on exertion History of pain when walking History of edema Chest pain History of rheumatic fever Home Medications ?Medication ?Instructions ?Recorded ?Last Taken ?Type aspirin 81 mg tablet,delayed 81 mg PO BID 06/07/24 01/05/25 History release (Adult Aspirin Regimen) metoprolol succinate 50 mg 50 mg PO DAILY #90 TABLETS 08/18/24 01/05/25 Rx tablet,extended release 24 hr lisinopril 20 mg tablet 20 mg PO DAILY #90 TABLETS 09/12/24 01/04/25 Rx acetaminophen 500 mg tablet 1,000 mg PO Q6H PRN fever or pain 01/05/25 01/05/25 History cholecalciferol (vitamin D3) 25 50 mcg PO DAILY 01/05/25 01/05/25 History mcg (1,000 unit) capsule (Vitamin D3) magnesium oxide 400 mg (241.3 mg 400 mg PO TID 01/05/25 01/05/25 History magnesium) tablet meloxicam 7.5 mg tablet 7.5 mg PO BID 01/05/25 01/05/25 History metformin 500 mg tablet,extended 500 mg PO QHS 01/05/25 01/04/25 History release 24 hr rosuvastatin 20 mg tablet 20 mg PO QHS 01/05/25 01/04/25 History tamsulosin 0.4 mg capsule 0.4 mg PO DAILY 01/05/25 01/05/25 History famotidine 20 mg tablet 20 mg PO DAILY 03/02/25 Unknown History furosemide 40 mg tablet (Lasix) 80 mg PO DAILY 03/02/25 Unknown History Allergy/AdvReac Type Severity Reaction Status Date / Time Penicillins Allergy Rash Verified 03/01/25 22:23 Family History Sister Cancer Heart disease Mother Brain tumor Father Myocardial infarction Son Heart disease Other Diabetes Surgical History History of cholecystectomy Hx of colonoscopy Hx of total hip arthroplasty Hx of hernia repair Social History Smoking Status: Never smoker alcohol intake: current alcohol intake frequency: holidays/special occasions only ROS Constitutional Constitutional: Reports fatigue; Denies chills, fever(s) or weakness Eyes Eyes: Denies change in vision Cardiovascular Cardiovascular: Reports chest pain and dyspnea on exertion; Denies edema, lightheadedness or palpitations Respiratory/Chest Respiratory/Chest: Denies shortness of breath at rest or wheezing Gastrointestinal Gastrointestinal: Denies abdominal pain Musculoskeletal Musculoskeletal: Denies arthralgias or myalgias Neurologic Neurologic: Denies dizziness, focal weakness or headache(s) Vital Signs Vital Signs Vital Signs: 03/01/25 22:24 03/01/25 22:29 03/01/25 23:23 Temperature 98.8 F Temperature Source Oral Pulse Rate 94 89 Respiratory Rate 20 H 14 Respiratory Effort Normal Non-Labored Blood Pressure 152/78 H 114/49 L Blood Pressure Mean 102 70 Pulse Ox 96 100 Oxygen Delivery Method Room Air Room Air 03/02/25 00:00 03/02/25 01:00 Temperature Temperature Source Pulse Rate 79 77 Respiratory Rate 18 19 H Respiratory Effort Blood Pressure 118/56 L 113/59 L Blood Pressure Mean 76 77 Pulse Ox 98 98 Oxygen Delivery Method Room Air Room Air Weight Weight: 78.6 kg Body Mass Index (BMI) 24.1 Physical Exam Const alert, oriented x3, no apparent distress, average body habitus, healthy appearing and well nourished Constitutional Narrative: Elderly male, mentally sharp for his age and well-appearing, sitting back comfortably in bed, conversing normally, in no acute distress. General Appearance: cooperative, comfortable, well kempt and well developed HEENT normocephalic, head/scalp atraumatic, hearing grossly normal bilaterally, nasal mucous membranes and turbinates normal and moist oral mucous membranes Eyes PERRL, EOMs intact bilaterally and conjunctivae normal Neck full ROM Chest inspection of chest normal Resp normal respiratory effort, normal air movement, no use of accessory muscles and clear to auscultation bilaterally Cardio regular rate, regular rhythm, no murmurs and peripheral pulses 2+ throughout GI normal to inspection, nondistended, normoactive bowel sounds, soft to palpation, non-tender and non-distended Back/Spine normal ROM Extremity full ROM Extremity Narrative: Trace lower extremity nonpitting edema noted. Skin no rashes or lesions noted Psych mental status grossly normal Results Lab / Micro Data 03/01/25 22:15 03/01/25 22:15 Labs: Laboratory Results - last 24 hr 03/01/25 22:15: WBC 10.8, RBC 4.36 L, Hgb 12.8 L, Hct 38.9 L, MCV 89.2, MCH 29.4, MCHC 32.9, RDW Std Deviation 42.6, RDW Coeff of Robert 13.1, Plt Count 272, MPV 10.8, Immature Gran % (Auto) 0.600, Neut % (Auto) 67.6, Lymph % (Auto) 16.1 L, [place] % (Auto) 12.2 H, Eos % (Auto) 3.1, Baso % (Auto) 0.4, Absolute Neuts (auto) 7.3, Absolute Lymphs (auto) 1.74, Nucleated RBC % 0, Sodium 140, Potassium 4.6, Chloride 103, Carbon Dioxide 21.0, Anion Gap 16 H, BUN 75 H, Creatinine 1.91 H, Estim Creat Clear Calc 31.21 L, Est GFR (MDRD) Non-Af 34 L, BUN/Creatinine Ratio 39.5 H, Glucose 174 H, Calcium 9.7, Magnesium 2.7 H, Troponin T High Sens 51 H D, NT pro BNP II 2715 H 03/02/25 00:57: Troponin T Hi Sens 2 Hr 233 H* Imaging Radiology Impression Chest X-Ray 03/01/25 23:19 IMPRESSION: No evidence of acute cardiopulmonary disease. Ancillary findings noted above. Reading Location: [id number] Assessment & Plan Assessment/Plan (1) NSTEMI, initial episode of care: PLAN: Plan Patient is an 84-year-old male who presented to [facility] ED on 03/02/2025 with chest pain. 1. NSTEMI ? Admit under inpatient status to PCU. Cardiology consulted. Concern is for type I NSTEMI due to coronary disease given chest pain on admit relieved with nitro and troponin trend 51 > 233. Notably though, patient did have a left heart cath done in 11/2023 that showed only 30% lesions in 2 vessels. Regardless, will continue heparin drip and keep n.p.o. with plan for left heart cath this morning. Follow-up third troponin. Continue home baby aspirin, high intensity statin and Toprol. Hold home lisinopril for now. Lipid panel ordered. Continue cardiac monitoring. 2. DARIAN ? Creatinine 1.91, BUN 75 on admit. Baseline creatinine around 1.1. Suspect prerenal etiology from overdiuresis in setting of recently increased dose of home Lasix. BNP is elevated at 2700 on admit but this is improved from previous, chest imaging shows no pulmonary edema and patient appears somewhat dry on exam. Will give send 750 cc of IV fluids overnight total. Follow-up a.m. BMP and monitor urine output. Holding home Lasix and lisinopril. 3. Chronic HFpEF, history of nonobstructive CAD, hypertension, hyperlipidemia ? Has followed with [place] cardiology in the past. Most recent echo on 02/08 showed EF 55%, stage I diastolic dysfunction, no other concerning findings. History of nonobstructive CAD on left heart cath in 2023 as above. Treatment as above. 4. Type 2 diabetes mellitus ? A1c 6.7% on 02/26. Will treat with sliding scale insulin with meals while inpatient, adjust as needed. Hold home metformin. 5. BPH with obstructive symptoms ? Continue home Flomax. 6. GERD ? Continue home famotidine. DVT prophylaxis: Not indicated, on heparin drip CODE STATUS: Full code, verified Expected disposition: Home, TBD Total clinical time spent by myself addressing the patient's medical issues, reviewing all the data, and collaborating with patient's care team: 75 minutes.
--- NOTE | 2025-03-02 02:02 | EX.ED.DYSGE1 ---
HPI History of Present Illness Chief Complaint: Chest Pain Informant: patient and family Narrative Narrative: Patient is a 84-year-old male with past medical history of of coronary artery disease hypertension hyperlipidemia and congestive heart failure. He states a few hours prior to arrival he developed left-sided chest pain that he described as a pressure that radiated towards his left jaw. He denied any nausea vomiting or diaphoresis associated with this. He states that the symptoms were not resolving and because of his past medical history high concern this could be cardiac in nature and therefore comes in for evaluation. [facility] Medical History Thyroid nodule Palpitations Crohn disease Arthritis Back pain Syncope Abdominal pain Shortness of breath on exertion History of pain when walking History of edema Chest pain History of rheumatic fever Home Medications ?Medication ?Instructions ?Recorded ?Last Taken ?Type aspirin 81 mg tablet,delayed 81 mg PO BID prevention 06/07/24 02/28/25 20:00 History release (Adult Aspirin Regimen) metoprolol succinate 50 mg 50 mg PO DAILY #90 TABLETS 08/18/24 01/05/25 Rx tablet,extended release 24 hr lisinopril 20 mg tablet 20 mg PO DAILY #90 TABLETS 09/12/24 01/04/25 Rx acetaminophen 500 mg tablet 1,000 mg PO Q6H PRN fever or pain 01/05/25 01/05/25 History cholecalciferol (vitamin D3) 25 50 mcg PO DAILY vitamin 01/05/25 02/28/25 08:27 History mcg (1,000 unit) capsule (Vitamin D3) magnesium oxide 400 mg (241.3 mg 400 mg PO TID 01/05/25 01/05/25 History magnesium) tablet meloxicam 7.5 mg tablet 7.5 mg PO BID 01/05/25 01/05/25 History metformin 500 mg tablet,extended 500 mg PO QHS 01/05/25 01/04/25 History release 24 hr rosuvastatin 20 mg tablet 20 mg PO QHS 01/05/25 01/04/25 History tamsulosin 0.4 mg capsule 0.4 mg PO DAILY 01/05/25 01/05/25 History famotidine 20 mg tablet 20 mg PO DAILY 03/02/25 Unknown History furosemide 40 mg tablet (Lasix) 80 mg PO DAILY 03/02/25 Unknown History Allergy/AdvReac Type Severity Reaction Status Date / Time Penicillins Allergy Rash Verified 03/01/25 22:23 Family History Sister Cancer Heart disease Mother Brain tumor Father Myocardial infarction Son Heart disease Other Diabetes Surgical History History of cholecystectomy Hx of colonoscopy Hx of total hip arthroplasty Hx of hernia repair Social History Smoking Status: Never smoker alcohol intake: current alcohol intake frequency: holidays/special occasions only ROS ROS ED Constitutional Constitutional ED: Denies chills or fever(s) Eyes Eyes: Denies change in vision ENT ENT ED: Reports other Details: Positive left jaw pain ; Denies sore throat Cardiovascular Cardiovascular: Reports chest pain; Denies palpitations or racing heartbeat Respiratory/Chest Respiratory/Chest: Denies cough or dyspnea Gastrointestinal Gastrointestinal: Denies abdominal pain, diarrhea, nausea or vomiting Musculoskeletal Musculoskeletal: Reports other Details: Positive leg swelling which is chronic in nature ; Denies back pain Integumentary Denies rash Neurologic Neurologic: Denies headache(s) Hematologic/Lymphatic Hematologic/Lymphatic: Denies easy bleeding or easy bruising EXAM Physical Exam Const Vital Signs: 03/01/25 22:24 03/01/25 22:29 03/01/25 23:23 Temperature 98.8 F Temperature Source Oral Pulse Rate 94 89 Respiratory Rate 20 H 14 Respiratory Effort Normal Non-Labored Blood Pressure 152/78 H 114/49 L Blood Pressure Mean 102 70 Pulse Ox 96 100 Oxygen Delivery Method Room Air Room Air 03/02/25 00:00 03/02/25 01:00 Temperature Temperature Source Pulse Rate 79 77 Respiratory Rate 18 19 H Respiratory Effort Blood Pressure 118/56 L 113/59 L Blood Pressure Mean 76 77 Pulse Ox 98 98 Oxygen Delivery Method Room Air Room Air Positive well nourished, well developed and obese General Appearance ED: well developed; Negative for pallor Nutritional Appearance: obese HEENT HEENT Narrative: Normocephalic atraumatic Eyes PERRL and EOMs intact bilaterally General Eye ED: Negative for scleral icterus Neck supple and no JVD Chest Wall palpation of chest normal Resp normal respiratory effort and clear to auscultation bilaterally Cardio regular rate and regular rhythm Rate: other Other Details: Heart is regular rate and rhythm Radial and carotid pulses are equal and symmetric GI normal to inspection, nondistended, normoactive bowel sounds, non-tender, non-distended and no masses GI Narrative: No voluntary guarding or rigidity or pulsatile mass Auscultation: normoactive bowel sounds Palpation: soft Back/Spine no CVA tenderness Extremity Extremity Narrative: +2 pitting edema to the bilateral lower extremities that is equal and symmetric Negative Homans' sign bilaterally Neuro oriented x3, CN's II-XII intact bilaterally and no sensory deficits noted Sensorium / Orientation: alert Motor Exam: strength 5/5 throughout Psych mental status grossly normal Skin no rashes or lesions noted General Skin Exam: Negative for jaundice or pallor MDM MDM MDM Narrative Medical decision making narrative: Patient arrived to the ER slightly hypertensive but has a past medical history of this and otherwise with stable vitals. He reported left-sided chest discomfort with radiation towards the jaw and his history and past medical history is concerning that this is acute coronary syndrome. Further differential diagnosis is for cardiac dysrhythmia versus lung pathology such as pneumonia or pneumothorax or congestive heart failure exacerbation. With most likely being acute coronary syndrome a basic cardiac workup was performed. Labs show initial troponin of 51 which is the at the upper limit of normal. However the delta troponin increased to 233 correlating with acute coronary syndrome/NSTEMI. Secondary to this the case was discussed with cardiology on-call . The patient reports that his pain is down to a half a point but with the mild persistent pain he does recommend patient be given Nitropaste and placed on a heparin drip. With potential plan for cardiac catheterization in the morning. The patient's creatinine is elevated at 1.9 but he is on 80 mg of Lasix daily and therefore this is not unexpected. His chest x-ray also revealed no lung pathology such as pneumonia pneumothorax or significant congestive heart failure. Therefore his workup is concerning and consistent with ACS/NSTEMI and therefore with the symptoms and elevation to his troponin he will need to be kept in the hospital for continued management. The case was discussed with the hospitalist secondary to this and he agrees to accept the patient for further care History & Record Review Discussion w/independent historian: Patient Lab Data Attestation: I reviewed the patient's lab results. Labs: Laboratory Results - last 24 hr 03/01/25 03/02/25 22:15 00:57 WBC 10.8 RBC 4.36 L Hgb 12.8 L Hct 38.9 L MCV 89.2 MCH 29.4 MCHC 32.9 RDW Std Deviation 42.6 RDW Coeff of Robert 13.1 Plt Count 272 MPV 10.8 Immature Gran % (Auto) 0.600 Neut % (Auto) 67.6 Lymph % (Auto) 16.1 L [place] % (Auto) 12.2 H Eos % (Auto) 3.1 Baso % (Auto) 0.4 Absolute Neuts (auto) 7.3 Absolute Lymphs (auto) 1.74 Nucleated RBC % 0 PT 13.1 INR 1.0 APTT 28.1 Sodium 140 Potassium 4.6 Chloride 103 Carbon Dioxide 21.0 Anion Gap 16 H BUN 75 H Creatinine 1.91 H Estim Creat Clear Calc 31.21 L Est GFR (MDRD) Non-Af 34 L BUN/Creatinine Ratio 39.5 H Glucose 174 H Calcium 9.7 Magnesium 2.7 H Troponin T High Sens 51 H D Troponin T Hi Sens 2 Hr 233 H* NT pro BNP II 2715 H Radiography Diagnostic Testing: Clinical Impression(s) from Imaging Studies Chest X-Ray 03/01/25 23:19 IMPRESSION: No evidence of acute cardiopulmonary disease. Ancillary findings noted above. Reading Location: [facility] Chest x-ray as interpreted by the emergency medicine physician reveals no acute infiltrate pneumothorax or pleural effusion Management Discussion w/another healthcare provider: Hospitalist and [employer] Discharge Plan Dx/Rx/DC Orders Clinical Impression: NSTEMI, initial episode of care, HTN (hypertension), benign, Hyperlipidemia, Congestive heart failure, Renal insufficiency Disposition Disposition: Acute Care Hospital [facility] Discharge Date/Time: 03/02/25 02:53
--- NOTE | 2025-03-02 02:04 | ECHOLC_ITS ---
Reason For Study Reason For Study: CHF Procedure This was a limited 2D transthoracic echocardiogram. The study was technically difficult. Contrast injection was performed. Exam performed portable in patient room. Left Ventricle Normal left ventricle. Left ventricular systolic function is normal. The LV ejection fraction is 55 %. No regional wall motion abnormalities noted. Right Ventricle Mildly dilated right ventricle. Mild to moderate global right ventricular systolic dysfunction. Atria Normal left atrium. Mitral Valve The mitral valve is structurally normal. No prolapse or stenosis seen. No mitral valve insufficiency. Pericardium/Pleural Epicardial fat. Medication Diluted definity 2ml given slow IV push to enhance endocardial definition. MMode/2D Measurements & Calculations LAV(MOD-bp): 52.4 ml SV(MOD-sp4): 77.9 ml LVAd ap4: 40.2 cm2 LAV(MOD-bp) Indexed: 26.4 ml/m2 LVLd ap4: 9.6 cm SI(MOD-sp4): 39.3 ml/m2 LAV(MOD-sp2): 43.6 ml EDV(MOD-sp4): 142.4 ml LAV(MOD-sp4): 61.4 ml EDV(sp4-el): 142.6 ml LVAs ap4: 23.3 cm2 LVLs ap4: 7.3 cm ESV(MOD-sp4): 64.5 ml ESV(sp4-el): 62.8 ml EF(MOD-sp4): 54.7 % EF(sp4-el): 55.9 % SV(sp4-el): 79.7 ml LA A4 area: 21.1 cm2 RA A4 area: 20.6 cm2 ECHO/Echo Limited w/Contrast Interpretation Summary The LV ejection fraction is 55 %. Mild to moderate global right ventricular systolic dysfunction. Ordering Physician: Lewis Pat Referring Physician: Dejuan Sanders Performed By: Theodora Falcon and Student
[2025-03-02] MEDS: Heparin Injection (Vial) 5,000 UNIT/ML VIAL 4000 UNIT IV (02:16)
[2025-03-02] MEDS: HEPARIN/D5w 25,000 UNITS 25,000 UNITS/250 ML IV.SOLN. 9 UNITS CONT INF (02:20)
[2025-03-02 02:32] LABS: Partial Thromboplast Time 28.1 Seconds (24.1-36.2); Prothrombin Time (Protime)PT. 13.1 SECONDS (11.7-14.9)
--- OUTSIDE RECORDS SUMMARY | 2025-03-02 02:33 | XMS RPT_ITS | CCD ---
Author Organization 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 Mary Abernathy Primary [...] Provider Dr. Obinna Baltazar Attending Provider Kevin MANAGER UI, MANAGER UI-C Gisella Attending Provider ERIKA SPANGLER, KP Galaviz Attending Serge ABERNATHY MD, DR DE LA ROSA Primary Care Unavailable JOSEMANUEL ZELAYA, DR DE LA ROSA Primary Care Unavailable ERIKA SPANGLER, KP Galaviz Attending Serge ABERNATHY MD, DR DE LA ROSA Primary Care Unavailable ERIKA PIMENTEL-PHYSICIAN CODING SPECIALIST, KP Galaviz Attending Sandeeva debbie SPANGLER, KP Galaviz Attending Serge ABERNATHY MD, DR DE LA ROSA Primary Care Unavailable JOSEMANUEL ZELAYA, DR DE LA ROSA Primary Care Physician Josemanuel ZELAYA, Dr. Mary Basilio Primary Care Provider Josemanuel ZELAYA, Dr. Mary Basilio Attending Provider Josemanuel ZELAYA, Dr. Mary Basilio Referring Provider Erkia MANAGER UI-CKp Attending Provider Erika RADER-CKp Referring Provider Marilyn ZELAYA, Dr. Janey Nicolas Primary Care Provider [phone] Marilyn ZELAYA, Dr. Janey Nicolas Attending Provider Marilyn ZELAYA, Dr. Janey Nicolas Referring Provider Dr. Modesto Carbajal DO Emergency Provider JOSEMANUEL [...] Unavailable Jolliff, Mary S Primary Care Unavailable ePdro Segura Attending Unavailable Jolliff, Mary S Referring [...] Translations: [PENICILLINS] Allergy to substance 9 Rash [facility] Work Phone: (3 sources) Penicillin; Translations: [penicillin] Drug Allergy Eruption (morphologic abnormality) [facility] [place] Medications Current Medications Medication Drug Class(es) Dates [...] Comment on above: Take 1 capsule by [facility] three times a day as needed for cough for up to 7 days. cholecalciferol 0.025 mg oral capsule (4 sources) Vitamin D Start: 01-05-2025 take 1 capsule by mouth once daily Cholecalciferol (Vitamin D3) (Vitamin D3) 25 mcg (1,000 unit) capsule Active 50 ug PO DAILY January 05, 2025 12:00am docusate sodium 50 mg / sennosides, mcc 8.6 mg oral tablet (1 source) Start: 12-27-2024 End: 12-30-2024 take 1 tablet by mouth twice daily Senokot S 50 mg-8.6 mg oral tablet Dose = 2 tab(s), Oral, BID, Take until first bowel movement, then as needed, X 3 day(s), # 12 tab(s), 0 Refill(s), Pharmacy: [facility]/pharmacy #[id number], 180.3, cm, 12/26/24 10:26:00 EDT, Height, [...] qDay, # 30 tab(s), 0 Refill(s), Pharmacy: [facility]/pharmacy #[id number], 180.3, cm, 12/26/24 10:26:00 EDT, Height, [...] meloxicam/Mobic., # 60 tab(s), 0 Refill(s), Pharmacy: [facility]/pharmacy #[id number], 180.3, cm, 12/26/24 10:26:00 EDT, Height, [...] Start: 11-26-2021 take 1 capsule by mo [facility] once daily Multivitamin Active 1 CAP PO DAILY November 25, 2021 11:00pm Start: 11-26-2021 take 1 capsule by mo ut once daily Multivitamin Active 1 CAP PO DAILY November 26, 2021 12:00am [place]-3 Fatty Acids-Vitamin E (Fish Oil) 1,000 mg Capsule (18 sources) Start: 11-26-2021 take 1 capsule by mouth once daily [place]-3 Fatty Acids-Vitamin E (Fish Oil) 1,000 mg Capsule Active 1 CAP PO DAILY November 26, 2021 2:26pm Start: 11-26-2021 End: 07-08-2023 [place]-3 Fatty Acids-Vitamin E (Fish Oil) 1,000 mg Capsule Discontinued 1 NMA PO DAILY November 26, 2021 12:00am July 08, 2023 12:38pm Start: 11-26-2021 End: 07-08-2023 take 1 capsule by mouth once daily [place]-3 Fatty Acids-Vitamin E (Fish Oil) 1,000 mg Capsule Discontinued 1 CAP PO DAILY November 26, 2021 12:00am July 08, 2023 12:38pm Start: 11-26-2021 take 1 capsule by mo [facility] once daily [place]-3 Fatty Acids-Vitamin E (Fish Oil) 1,000 mg Capsule Active 1 CAP PO DAILY November 25, 2021 11:00pm Start: 11-26-2021 take 1 capsule by mo ut once daily [place]-3 Fatty Acids-Vitamin E (Fish Oil) 1,000 mg [...] 0 Refill(s), 01/03/25 8:06:00 AM EDT, Pharmacy: [facility]/pharmacy #[id number], S/P total right hip arthroplasty, 180.3, [...] Comment on above: Take 1 capsule by [facility] twice daily for 5 days. 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 Not significant for [...] spondylolisthesis] 10-19-2023 Episodic Other aftercare (1 source) halfway (current) use of oral hypoglycemic drugs; Translations: [halfway (current) use of oral hypoglycemic drugs] Onset: 12-26-2024 Episodic Other aftercare (1 source) Other long winder tender (current) drug therapy; Translations: [Other custodial (current) drug therapy] Onset: 12-26-2024 Episodic Other aftercare (1 source) halfway (current) use of opiate analgesic; Translations: [halfway (current) use of opiate analgesic] Onset: 12-26-2024 Episodic Other aftercare (1 source) supervisor intermediates (current) use of systemic steroids; Translations: [supervisor intermediates (current) use of systemic steroids] Onset: 12-26-2024 [...] W/ Contraston 02-08-2025 Echo Complete W/ Contrast [facility] [address] [place] [address] Echo Complete W/ Contrast 02/08/25 0715 MR#: [id number] Acct: [id number] Name: LUC GANNON Rep #: [id number] : 1940 84 From: Obinna Baltazar MD Attending Dr: Dr. Janey Sanders MD Status: R EG I Ordering Dr: Janey Sanders MD Date: 02/08/25 Location: [facility] Sex: M C Admitted: Reason For Study [...] Date Dictated: 02/08/25714 Date Transcribed: 02/08/25 104 Maintenance Advisor: Signed Normal [facility] Echocardiogram study reportO rdered By: Obinna Baltazar on 02-08-2025 Study report [facility] [address] [place] [address] Echo Complete W/ Contrast 02/08/25714 MR#: [id number] Acct: [id number] Name: LUC GANNON Rep #:[id number] : [...] Date Dictated: 02/08/25714 Date Transcribed: 06/19/25 1042 Maintenance Advisor: Signed [facility] Work Phone: Hemoglobin A1con 01-25-2025 HbA1c (Bld) [Mass fraction] 6.5 % High <=5.6 [facility] Comment on above: Order Comment: Order Date: 01/25/25Order Info: [id number] - A1C Result Comment: Norm al < 5.7 % Prediabetic 5.7 - 6.4 % Diabetic >or= 6.5 % Please note range changes. Performed By: #### P SSII #### [facility] [address] [place], [place], [id number] Hemoglobin A1c percentageOrd ered By: Janey Sanders on 01-25-2025 HbA1c (Bld) [Mass fraction] 6.5 % High <5.7 [facility] Comment on above: Normal < 5.7 % Predi abetic 5.7 - 6.4 % Diabetic >or= 6.5 % Please note range changes. L503.7505on 01-25-2025 Natriuretic peptide B (Bld) [Mass/Vol] 3483 pg/mL High <=1800 [facility] Comment on above: Result Comment: Hear t Failure Unlikely: < 300 pg/mL Heart Failure Likely < 50 Years: > 450 pg/mL 50-75 Years: > 900 pg/mL >75 Years: > 1800 pg/mL Performed By: #### P SSII #### [facility] [address] [place], [address] Microalb:Creat Ratio,Random URon 01-25-2025 Creatinine [Mass/Vol] 64.00 mg/dL Normal 39.00- 259.0 0 [facility] Comment on above: Order Comment: Order Date: 01/25/25Order Info: [id number] - MIALB Performed By: #### P SSII #### [facility] [address] [place], [place], [id number] MALB:CREAT UNABLE TO CALCULATE Normal [facility] Comment on above: Order Comment: Order Date: 01/25/25Order Info: [id number] - MIALB Performed By: #### P SSII #### [facility] [address] [place], [place], [id number] MICROALBUMIN,UR < 12.0 Normal NO RANGE EST. [facility] Comment on above: Order Comment: Order Date: 01/25/25Order Info: [id number] - MIALB Performed By: #### P SSII #### [facility] [address] [place], [place], [address] Microalbumin/creat ratio urO rdered By: Janey Sanders on 01-25-2025 Urine microalbumin/creatinine ratio measurement UNABLE TO CALCULATE mg/g CRE [facility] Natriuretic peptide.B prohor carmela N-Terminal [Mass/volume] in Serum or PlasmaOrdered By: Janey Sanders on 01-25-2025 Natriuretic peptide.B prohormone N-Terminal [Mass/Vol] 3483 pg/mL High <1800 [facility] Comment on above: Heart Failure Unlike ly: < 300 pg/mLHeart Failure Likely< 50 Years: > 450 pg/mL50-75 Years: > 900 pg/mL>75 Years: > 1800 pg/mL Random urine creatinine andrez urement (mass/volume)Ordered By: Janey Sanders on 01-25-2025 Creatinine Unsp time (U) [Mass/Vol] 64.00 mg/dL 39.00-259.0 0 [facility] Urine albumin measurement wi detection limit of 20 mg/L or less (mass/volume)Ordered By: Janey Sanders on 01-25-2025 Albumin DL <= 20 mg/L (U) [Mass/Vol] < 12.0 mg/L NO RANGE EST. [facility] Thyroglobulin w/Anti-TG ABon 01-10-2025 Anti-TG AB < 1.0 Normal 0.0-0.9 [facility] Comment on above: Result Comment: Thyr oglobulin Antibody measured by [facility] Methodology It should be noted that the presence of thyroglobulin antibodies may not be pathogenic nor diagnostic, especially at very low levels. The assay inside trucker has found that four percent of individuals without evidence of thyroid disease or autoimmunity will have positive TgAb levels up to 4 IU/mL. Performed By: #### L 500.4050, L100.0100, L501.9520, L506.0400, L500.4100, L501.5200 #### [facility] [address] [place], [place], [address] THYROGLOB QUANT 196.9 ng/mL High 1.4-29.2 [facility] Comment on above: Result Comment: Acco rding [...] is 0.1 ng/mL Thyroglobulin measured by [facility] Assay Performed By: #### L 500.4050, L100.0100, L501.9520, L506.0400, L500.4100, L501.5200 #### [facility] [address] [place], [place], [address] Thyroid Peroxidase ABon 05-2 THYR PEROX AB 23 IU/mL Normal 0-34 [facility] Comment on above: Result Comment: Perf ormed at: - [facility] [id number] Fitness Trainer: Apollo Mcgill PhD, Phone: [phone] Performed By: #### L 500.4050, L100.0100, L501.9520, L506.0400, L500.4100, L501.5200 #### [facility] [address] [place], [place], [id number] 12 Lead EKGon 01-05-2025 12 Lead EKG [facility] Services [address] [place] [address] 12 Lead EKG 01/05/25 1707 MR#: [id number] Acct: [id number] Name: LUC GANNON Rep #: [id number] : 1940 84 From: Obinna Baltazar MD [...] Abnormal ECG Confirmed by OBINNA BALTAZAR MD ([id number]), desk editor MELYSSA GÓMEZ ([id number]) on 01/08/2025 8:49:03 AM Referred By: Confirmed By: OBINNA BALTAZAR MD 01/08/25 0849 Date Obinna Baltazar MD CC: Dr. Janey Sanders MD; Dr. Modesto Carbajal DO Signed Normal [facility] Absolute lymphocyte countOrd ered By: Modesto Carbajal on 01-05-2025 Lymphocytes Auto (Unsp spec) [#/Vol] 0.67 10*3/uL Low 0.83-4.51 [facility] Absolute neutrophil countOrd ered By: Modesto Carbajal on 01-05-2025 Neutrophils (Bld) [#/Vol] 7.4 10*3/uL 2.0-7.7 [facility] Anion gap in Serum or Plasma Ordered By: Modesto Carbajal on 01-05-2025 Anion gap [Moles/Vol] 11 mmol/L 5-15 [facility] Automated lymphocyte count a s percentage of total leukocytesOrdered By: Modesto Carbajal on 01-05-2025 Lymphocytes/100 WBC Auto (Unsp spec) 7.2 % Low 19-41 [facility] BUN/creatinine ratioOrdered By: Modesto Carbajal on 01-05-2025 Urea nitrogen/Creatinine [Mass ratio] 35.6 mg/mg High 10-20 [facility] Basic Metabolic Profile (BMP )on 01-05-2025 BUN/CRE 35.6 RATIO High 10-20 [facility] Comment on above: Performed By: #### P SSII #### [facility] [address] [place], [address] Calcium [Mass/Vol] 9.1 mg/dL Normal 7.6-11.0 [facility] Comment on above: Performed By: #### P SSII #### [facility] [address] [place], [address] Chloride [Moles/Vol] 102 mmol/L Normal 98-108 [facility] Comment on above: Performed By: #### P SSII #### [facility] [address] [place], [address] CO2 [Moles/Vol] 23.7 mmol/L Normal 21.0-32.0 [facility] Comment on above: Performed By: #### P SSII #### [facility] [address] [place], [address] Creatinine [Mass/Vol] 1.07 mg/dL Normal 0.70-1.20 [facility] Comment on above: Performed By: #### P SSII #### [facility] [address] [place], [address] ECRCL 71.69 ml/min Normal 50-250 [facility] Comment on above: Performed By: #### P SSII #### [facility] [address] [place], [address] GAP 11 Normal 5-15 [facility] Comment on above: Performed By: #### P SSII #### [facility] [address] [place], [address] GFR/1.73 sq M.predicted among non-blacks MDRD (S/P/Bld) [Vol rate/Area] 69 mL/min/{1.73_m2} Normal >60 [facility] Comment on above: Result Comment: mL/m in/1.73m2 CKD-EPI Creatinine Equation (2020) Performed By: #### P SSII #### [facility] [address] [place], [address] Glucose [Mass/Vol] 107 mg/dL High 70-99 [facility] Comment on above: Performed By: #### P SSII #### [facility] [address] [place], [address] Potassium [Moles/Vol] 5.0 mmol/L Normal 3.3-5.1 [facility] Comment on above: Performed By: #### P SSII #### [facility] [address] [place], [address] Sodium [Moles/Vol] 136 mmol/L Normal 133-145 [facility] Comment on above: Performed By: #### P SSII #### [facility] [address] [place], [address] Urea nitrogen [Mass/Vol] 38 mg/dL High 4-19 [facility] Comment on above: Performed By: #### P SSII #### [facility] [address] [place], [address] Basophil percentageOrdered B y: Modesto Carbajal on 01-05-2025 Basophils/100 WBC (Bld) 0.5 % 0-1 [facility] CBC W/Diff, Automatedon 12-21 Absolute Lymph 0.67 X10 3/uL Low 0.83-4.51 [facility] Comment on above: Performed By: #### P SSII #### [facility] [address] [place], [address] Absolute Neut 7.4 X10 3/uL Normal 2.0-7.7 [facility] Comment on above: Performed By: #### P SSII #### [facility] [address] [place], [address] Basophils/100 WBC (Bld) 0.5 % Normal 0-1 [facility] Comment on above: Performed By: #### P SSII #### [facility] [address] [place], [address] Eosinophils/100 WBC (Bld) 1.8 % Normal 0-5 [facility] Comment on above: Performed By: #### P SSII #### [facility] [address] [place], [address] Erythrocyte distribution width (RBC) [Ratio] 13.3 % Normal 11.6-14.6 [facility] Comment on above: Performed By: #### P SSII #### [facility] [address] [place], [address] Hematocrit (Bld) [Volume fraction] 32.4 % Low 40-54 [facility] Comment on above: Performed By: #### P SSII #### [facility] [address] [place], [address] Hemoglobin (Bld) [Mass/Vol] 10.8 g/dL Low 13.0-16.5 [facility] Comment on above: Performed By: #### P SSII #### [facility] [address] [place], [address] IG% 1.200 High 0.0-0.9 [facility] Comment on above: Result Comment: IG% - Immature Granulocytes (promyelocytes, myelocytes and metamyelocytes) > 1% indicates that a LEFT SHIFT is Present. Performed By: #### P SSII #### [facility] [address] [place], [address] Lymphocytes/100 WBC (Bld) 7.2 % Low 19-41 [facility] Comment on above: Performed By: #### P SSII #### [facility] [address] [place], [address] MCH (RBC) [Entitic mass] 29.8 pg Normal 27.0-32.0 [facility] Comment on above: Performed By: #### P SSII #### [facility] [address] [place], [address] MCHC (RBC) [Mass/Vol] 33.3 g/dL Normal 32-36 [facility] Comment on above: Performed By: #### P SSII #### [facility] [address] [place], [address] MCV (RBC) [Entitic vol] 89.5 fL Normal 80-94 [facility] Comment on above: Performed By: #### P SSII #### [facility] [address] [place], [address] Monocytes/100 WBC (Bld) 9.7 % Normal 0-10 [facility] Comment on above: Performed By: #### P SSII #### [facility] [address] [place], [address] Neutrophils/100 WBC (Bld) 79.6 % High 47-70 [facility] Comment on above: Performed By: #### P SSII #### [facility] [address] [place], [address] Nucleated RBC (Bld) [#/Vol] 0 10*3/uL Normal 0-5 [facility] Comment on above: Performed By: #### P SSII #### [facility] [address] [place], [address] Platelet mean volume (Bld) [Entitic vol] 8.8 fL Normal 6.2-12.0 [facility] Comment on above: Performed By: #### P SSII #### [facility] [address] [place], [address] Platelets (Bld) [#/Vol] 252 10*3/uL Normal 150-450 [facility] Comment on above: Performed By: #### P SSII #### [facility] [address] [place], [address] RBC (Bld) [#/Vol] 3.62 10*6/uL Low 4.6-6.2 [facility] Comment on above: Performed By: #### P SSII #### [facility] [address] [place], [address] RDW SD 43.9 fl Normal 35.1-43.9 [facility] Comment on above: Performed By: #### P SSII #### [facility] [address] [place], [address] WBC (Bld) [#/Vol] 9.4 10*3/uL Normal 4.4-11.0 [facility] Comment on above: Performed By: #### P SSII #### [facility] [address] [place], [address] CTA Chest W/WO Contraston CTA Chest W/WO Contrast [facility] Imaging Services [address] [place] [address] CTA Chest W/WO Contrast MR#: [id number] Acct: [id number] Name: LUC GANNON Rep #: [id number] : 1940 M 84 From: Sang nicolas MD PCP: Dr. Janey Sanders MD Status: [facility] ER Study: CTA Chest W/WO Contrast Date of Exam: 01/05/25 Exam# [id number] Ordering Dr: Modesto Carbajal DO PROCEDURE: CTA [...] Janey Sanders MD; Dr. Modesto Carbajal DO Maintenance Advisor: Signed Normal [facility] Carbon dioxide, total [Moles /volume] in Central venous bloodOrdered By: Modesto Carbajal on 01-05-2025 CO2 [Moles/Vol] 23.7 mmol/L 21.0-32.0 [facility] Chloride assayOrdered By: Ulisses Carbajal on 01-05-2025 Chloride [Moles/Vol] 102 mmol/L 98-108 [facility] Emergency Department Summary on 01-05-2025 Emergency Department Summary [facility] Medical Records Department [address] [place] [address] Emergency Department Summary 01/05/25 MR#: [id number] Acct: [id number] Name: LUC GANNON Rep #: [id number] : 1940 84 From: Modesto Carbajal DO PCP: Dr. Janey Sanders MD Status:DEP ER Location: ED HPI History of Present Illness Chief Complaint: Shortness of Breath [facility] Medical History Thyroid nodule Palpitations Crohn [...] posterior tibial) (more content not included)... Normal [facility] Eosinophil percentageOrdered By: Modesto Carbajal on 01-05-2025 Eosinophils/100 WBC (Bld) 1.8 % 0-5 [facility] Erythrocyte distribution wid th ratioOrdered By: Modesto Carbajal on 01-05-2025 Erythrocyte distribution width (RBC) [Ratio] 13.3 % 11.6-14.6 [facility] Erythrocyte distribution wid th standard deviationOrdered By: Modesto Carbajal on 01-05-2025 Erythrocyte distribution width (RBC) [Ratio] 43.9 fl 35.1-43.9 [facility] Glomerular filtration rate ( GFR) estimation/1.73 sq m using serum, plasma, or whole bOrdered By: Modesto Carbajal on 01-05-2025 GFR/1.73 sq M.predicted among non-blacks MDRD (S/P/Bld) [Vol rate/Area] 69 mL/min/{1.73_m2} >60 [facility] Comment on above: mL/min/1.73m2 CKD-EP I Creatinine Equation (2020) Hematocrit Auto (Bld) [Volum e fraction]Ordered By: Modesto Carbajal on 01-05-2025 Hematocrit (Bld) [Volume fraction] 32.4 % Low 40-54 [facility] Hemoglobin measurementOrdere d By: Modesto Carbajal on 01-05-2025 Hemoglobin (Bld) [Mass/Vol] 10.8 g/dL Low 13.0-16.5 [facility] Immature granulocytes/100 WB C Auto (Bld)Ordered By: Modesto Carbajal on 01-05-2025 Immature granulocytes/100 WBC (Bld) 1.200 % High 0.0-0.9 [facility] Comment on above: IG% - Immature Granu locytes (promyelocytes, myelocytes and metamyelocytes) > 1% indicates that a LEFT SHIFT is Present. Iron+Iron Binding Capacityon 01-05-2025 TIBC 231 ug/dL Low 250-450 [facility] Comment on above: Order Comment: Order Date: 01/04/25 Order Info: [id number] - CMP Order Info: [id number] - LIPID Order Info: [id number] - MG Order Info: [id number] - TSH Order Info: [id number] - T4F Performed By: #### L 500.4050, L100.0100, L501.9520, L506.0400, L500.4100, L501.5200 #### [facility] [address] [place], [address] L499.0042on 01-05-2025 Trop T High Sen 35 ng/L High <=22 [facility] Comment on above: Performed By: #### L 500.4050, L100.0100, L501.9520, L506.0400, L500.4100, L501.5200 #### [facility] [address] [place], [address] L499.0043on 01-05-2025 Trop T High Sen Normal <=22 [facility] Comment on above: Result Comment: Canc elled via OM: Order cancelled - Patient discharged Performed By: #### L 500.4050, L100.0100, L501.9520, L506.0400, L500.4100, L501.5200 #### [facility] [address] [place], [address] L501.4021on 01-05-2025 Trop T High Sen 37 ng/L High <=22 [facility] Comment on above: Performed By: #### P SSII #### [facility] [address] [place], [address] L503.7505on 01-05-2025 Natriuretic peptide B (Bld) [Mass/Vol] 1924 pg/mL High <=1800 [facility] Comment on above: Result Comment: Hear t Failure Unlikely: < 300 pg/mL Heart Failure Likely < 50 Years: > 450 pg/mL 50-75 Years: > 900 pg/mL >75 Years: > 1800 pg/mL Performed By: #### P SSII #### [facility] [address] [place], [address] MCV (mean corpuscular volume ) determinationOrdered By: Modesto Carbajal on 01-05-2025 MCV (RBC) [Entitic vol] 89.5 fL 80-94 [facility] Mean corpuscular hemoglobin (MCH) determinationOrdered By: Modesto Carbajal on 01-05-2025 MCH (RBC) [Entitic mass] 29.8 pg 27.0-32.0 [facility] Mean corpuscular hemoglobin concentration (MCHC) determinationOrdered By: Modesto Carbajal on 01-05-2025 MCHC (RBC) [Mass/Vol] 33.3 g/dL 32-36 [facility] Mean platelet volume determi nationOrdered By: Modesto Carbajal on 01-05-2025 Platelet mean volume (Bld) [Entitic vol] 8.8 fL 6.2-12.0 [facility] Monocyte percentageOrdered B y: Modesto Carbajal on 01-05-2025 Monocytes/100 WBC (Bld) 9.7 % 0-10 [facility] Natriuretic peptide.B prohor carmela N-Terminal [Mass/volume] in Serum or PlasmaOrdered By: Modesto Carbajal on 01-05-2025 Natriuretic peptide.B prohormone N-Terminal [Mass/Vol] 1924 pg/mL High <1800 [facility] Comment on above: Heart Failure Unlike ly: < 300 pg/mLHeart Failure Likely< 50 Years: > 450 pg/mL50-75 Years: > 900 pg/mL>75 Years: > 1800 pg/mL Neutrophil percentageOrdered By: Modesto Carbajal on 01-05-2025 Neutrophils/100 WBC (Bld) 79.6 % High 47-70 [facility] Nucleated red blood cell per centageOrdered By: Modesto Carbajal on 01-05-2025 Nucleated RBC/100 WBC (Bld) [Ratio] 0 % 0-5 [facility] Platelet countOrdered By: Ulisses Carbajal on 01-05-2025 Platelets (Bld) [#/Vol] 252 10*3/uL 150-450 [facility] Potassium measurement (mass/ volume)Ordered By: Modesto Carbajal on 01-05-2025 Potassium (Unsp spec) [Mass/Vol] 5.0 mmol/L 3.3-5.1 [facility] RBC Auto (Bld) [#/Vol]Ordere d By: Modesto Carbajal on 01-05-2025 RBC (Bld) [#/Vol] 3.62 10*6/uL Low 4.6-6.2 [facility] Serum creatinine measurement (mass/volume)Ordered By: Modesto Carbajal on 01-05-2025 Creatinine [Mass/Vol] 1.07 mg/dL 0.70-1.20 [facility] Serum glucose measurement (m ass/volume)Ordered By: Modesto Carbajal on 01-05-2025 Glucose [Mass/Vol] 107 mg/dL High 70-99 [facility] Serum or plasma calcium andrez urement (mass/volume)Ordered By: Modesto Carbajal on 01-05-2025 Calcium [Mass/Vol] 9.1 mg/dL 7.6-11.0 [facility] Serum or plasma urea nitroge n measurement (mass/volume)Ordered By: Modesto Carbajal on 01-05-2025 Urea nitrogen [Mass/Vol] 38 mg/dL High 4-19 [facility] Sodium levelOrdered By: Rachelle Carbajal on 01-05-2025 Sodium [Moles/Vol] 136 mmol/L 133-145 [facility] Troponin T.cardiac [Mass/vol ume] in Serum or Plasma by High sensitivity methodOrdered By: Modesto Carbajal on 01-05-2025 Troponin T.cardiac High sensitivity method [Mass/Vol] 35 ng/L High <22 [facility] Troponin T.cardiac High sensitivity method [Mass/Vol] 37 ng/L High <22 [facility] White blood cell (WBC) count Ordered By: Modesto Carbajal on 01-05-2025 WBC (Bld) [#/Vol] 9.4 10*3/uL 4.4-11.0 [facility] Absolute lymphocyte countOrd ered By: Janey Sanders on 01-04-2025 Lymphocytes Auto (Unsp spec) [#/Vol] 0.54 10*3/uL Low 0.83-4.51 [facility] Absolute neutrophil countOrd ered By: Janey Sanders on 01-04-2025 Neutrophils (Bld) [#/Vol] 9.3 10*3/uL High 2.0-7.7 [facility] Anion gap in Serum or Plasma Ordered By: Janey Sanders on 01-04-2025 Anion gap [Moles/Vol] 12 mmol/L 01-04 [facility] Automated lymphocyte count a s percentage of total leukocytesOrdered By: Janey Sanders on 01-04-2025 Lymphocytes/100 WBC Auto (Unsp spec) 4.9 % Low 19-41 [facility] BUN/creatinine ratioOrdered By: Janey Sanders on 01-04-2025 Urea nitrogen/Creatinine [Mass ratio] 38.4 mg/mg High 10-20 [facility] Basophil percentageOrdered B y: Janey Sanders on 01-04-2025 Basophils/100 WBC (Bld) 0.4 % 0-1 [facility] Bilirubin, totalOrdered By: Janey Sanders on 01-04-2025 Bilirubin [Mass/Vol] 0.45 mg/dL 0.00-1.30 [facility] CBC W/Diff, Automatedon 12-21 Absolute Lymph 0.54 X10 3/uL Low 0.83-4.51 [facility] Comment on above: Order Comment: Order Date: 01/04/25 Order Info: 0184-1 - CBCD Performed By: #### L 500.4050, L100.0100, L501.9520, L506.0400, L500.4100, L501.5200 #### [facility] [address] [place], [address] Absolute Neut 9.3 X10 3/uL High 2.0-7.7 [facility] Comment on above: Order Comment: Order Date: 01/04/25 Order Info: 0184-1 - CBCD Performed By: #### L 500.4050, L100.0100, L501.9520, L506.0400, L500.4100, L501.5200 #### [facility] [address] [place], [address] Basophils/100 WBC (Bld) 0.4 % Normal 0-1 [facility] Comment on above: Order Comment: Order Date: 01/04/25 Order Info: 0184-1 - CBCD Performed By: #### L 500.4050, L100.0100, L501.9520, L506.0400, L500.4100, L501.5200 #### [facility] [address] [place], [address] Eosinophils/100 WBC (Bld) 1.6 % Normal 0-5 [facility] Comment on above: Order Comment: Order Date: 01/04/25 Order Info: 0184-1 - CBCD Performed By: #### L 500.4050, L100.0100, L501.9520, L506.0400, L500.4100, L501.5200 #### [facility] [address] [facility] [place], [address] Erythrocyte distribution width (RBC) [Ratio] 13.4 % Normal 11.6-14.6 [facility] Comment on above: Order Comment: Order Date: 01/04/25 Order Info: 0184-1 - CBCD Performed By: #### L 500.4050, L100.0100, L501.9520, L506.0400, L500.4100, L501.5200 #### [facility] [address] [facility] [place], [address] Hematocrit (Bld) [Volume fraction] 35.4 % Low 40-54 [facility] Comment on above: Order Comment: Order Date: 01/04/25 Order Info: 0184-1 - CBCD Performed By: #### L 500.4050, L100.0100, L501.9520, L506.0400, L500.4100, L501.5200 #### [facility] [address] [place], [address] Hemoglobin (Bld) [Mass/Vol] 11.3 g/dL Low 13.0-16.5 [facility] Comment on above: Order Comment: Order Date: 01/04/25 Order Info: 0184- - CBCD Performed By: #### L 500.4050, L100.0100, L501.9520, L506.0400, L500.4100, L501.5200 #### [facility] [address] [place], [address] IG% 1.100 High 0.0-0.9 [facility] Comment on above: Order Comment: Order Date: 01/04/25 Order Info: 01811-21 - CBCD Result Comment: IG% - Immature Granulocytes (promyelocytes, myelocytes and metamyelocytes) > 1% indicates that a LEFT SHIFT is Present. Performed By: #### L 500.4050, L100.0100, L501.9520, L506.0400, L500.4100, L501.5200 #### [facility] [address] [place], [address] Lymphocytes/100 WBC (Bld) 4.9 % Low 19-41 [facility] Comment on above: Order Comment: Order Date: 01/04/25 Order Info: 0184- - CBCD Performed By: #### L 500.4050, L100.0100, L501.9520, L506.0400, L500.4100, L501.5200 #### [facility] [address] [place], [address] MCH (RBC) [Entitic mass] 29.3 pg Normal 27.0-32.0 [facility] Comment on above: Order Comment: Order Date: 01/04/25 Order Info: 0184-1 - CBCD Performed By: #### L 500.4050, L100.0100, L501.9520, L506.0400, L500.4100, L501.5200 #### [facility] [address] [place], [address] MCHC (RBC) [Mass/Vol] 31.9 g/dL Low 32-36 [facility] Comment on above: Order Comment: Order Date: 01/04/25 Order Info: 0184-1 - CBCD Performed By: #### L 500.4050, L100.0100, L501.9520, L506.0400, L500.4100, L501.5200 #### [facility] [address] [place], [address] MCV (RBC) [Entitic vol] 91.7 fL Normal 80-94 [facility] Comment on above: Order Comment: Order Date: 01/04/25 Order Info: 0184-1 - CBCD Performed By: #### L 500.4050, L100.0100, L501.9520, L506.0400, L500.4100, L501.5200 #### [facility] [address] [place], [address] Monocytes/100 WBC (Bld) 7.6 % Normal 0-10 [facility] Comment on above: Order Comment: Order Date: 01/04/25 Order Info: 0184-1 - CBCD Performed By: #### L 500.4050, L100.0100, L501.9520, L506.0400, L500.4100, L501.5200 #### [facility] [address] [place], [address] Neutrophils/100 WBC (Bld) 84.4 % High 47-70 [facility] Comment on above: Order Comment: Order Date: 01/04/25 Order Info: 0184-1 - CBCD Performed By: #### L 500.4050, L100.0100, L501.9520, L506.0400, L500.4100, L501.5200 #### [facility] [address] [place], [address] Nucleated RBC (Bld) [#/Vol] 0 10*3/uL Normal 0-5 [facility] Comment on above: Order Comment: Order Date: 01/04/25 Order Info: 0184-1 - CBCD Performed By: #### L 500.4050, L100.0100, L501.9520, L506.0400, L500.4100, L501.5200 #### [facility] [address] [place], [address] Platelet mean volume (Bld) [Entitic vol] 9.4 fL Normal 6.2-12.0 [facility] Comment on above: Order Comment: Order Date: 01/04/25 Order Info: 0184- - CBCD Performed By: #### L 500.4050, L100.0100, L501.9520, L506.0400, L500.4100, L501.5200 #### [facility] [address] [place], [address] Platelets (Bld) [#/Vol] 282 10*3/uL Normal 150-450 [facility] Comment on above: Order Comment: Order Date: 01/04/25 Order Info: 0184-1 - CBCD Performed By: #### L 500.4050, L100.0100, L501.9520, L506.0400, L500.4100, L501.5200 #### [facility] [address] [place], [address] RBC (Bld) [#/Vol] 3.86 10*6/uL Low 4.6-6.2 [facility] Comment on above: Order Comment: Order Date: 01/04/25 Order Info: 0184-1 - CBCD Performed By: #### L 500.4050, L100.0100, L501.9520, L506.0400, L500.4100, L501.5200 #### [facility] [address] [place], [address] RDW SD 45.3 fl High 35.1-43.9 [facility] Comment on above: Order Comment: Order Date: 01/04/25 Order Info: 0184-1 - CBCD Performed By: #### L 500.4050, L100.0100, L501.9520, L506.0400, L500.4100, L501.5200 #### [facility] [address] [place], [address] WBC (Bld) [#/Vol] 11.0 10*3/uL Normal 4.4-11.0 [facility] Comment on above: Order Comment: Order Date: 01/04/25 Order Info: 0184-1 - CBCD Performed By: #### L 500.4050, L100.0100, L501.9520, L506.0400, L500.4100, L501.5200 #### [facility] [address] [place], [address] Calculated very low density lipoprotein (VLDL) cholesterol measurementOrdered By: Janey Sanders on 01-04-2025 Calculated very low density lipoprotein (VLDL) cholesterol measurement 27 mg/dL 5-40 [facility] Carbon dioxide, total [Moles /volume] in Central venous bloodOrdered By: Janey Sanders on 01-04-2025 CO2 [Moles/Vol] 22.6 mmol/L 21.0-32.0 [facility] Chloride assayOrdered By: Neha Sanders on 01-04-2025 Chloride [Moles/Vol] 102 mmol/L 98-108 [facility] Comprehensive Metabolic Prof ilon 01-04-2025 Albumin [Mass/Vol] 3.5 g/dL Normal 3.4-4.8 [facility] Comment on above: Order Comment: Order Date: 01/04/25 Order Info: 0786-1 - CMP Order Info: [id number] - LIPID Order Info: [id number] - MG Order Info: 3016-3 - TSH Order Info: 3024-7 - T4F Performed By: #### L 500.4050, L100.0100, L501.9520, L506.0400, L500.4100, L501.5200 #### [facility] [address] [place], [address] Albumin/Globulin [Mass ratio] 1.3 {ratio} Normal 0.9-2.4 [facility] Comment on above: Order Comment: Order Date: 01/04/25 Order Info: 86-1 - CMP Order Info: [id number] - LIPID Order Info: 22829-8 - MG Order Info: 3016-3 - TSH Order Info: 3024-7 - T4F Performed By: #### L 500.4050, L100.0100, L501.9520, L506.0400, L500.4100, L501.5200 #### [facility] [address] [place], [address] ALK PHOS 72 U/L Normal 40-129 [facility] Comment on above: Order Comment: Order Date: 01/04/25 Order Info: 0786-1 - CMP Order Info: [id number] - LIPID Order Info: 61179-9 - MG Order Info: 6-3 - TSH Order Info: 3024-7 - T4F Performed By: #### L 500.4050, L100.0100, L501.9520, L506.0400, L500.4100, L501.5200 #### [facility] [address] [place], [address] ALT [Catalytic activity/Vol] 23 U/L Normal <=46 [facility] Comment on above: Order Comment: Order Date: 01/04/25 Order Info: 0786-1 - CMP Order Info: [id number] - LIPID Order Info: [id number] - MG Order Info: 3016-3 - TSH Order Info: 3024-7 - T4F Performed By: #### L 500.4050, L100.0100, L501.9520, L506.0400, L500.4100, L501.5200 #### [facility] [address] [place], [address] AST [Catalytic activity/Vol] 22 U/L Normal <=37 [facility] Comment on above: Order Comment: Order Date: 01/04/25 Order Info: 0786-1 - CMP Order Info: 80716-7 - LIPID Order Info: [id number] - MG Order Info: 3016-3 - TSH Order Info: 3024-7 - T4F Performed By: #### L 500.4050, L100.0100, L501.9520, L506.0400, L500.4100, L501.5200 #### [facility] [address] [place], [place], [address] Bilirubin [Mass/Vol] 0.45 mg/dL Normal 0.00-1.30 [facility] Comment on above: Order Comment: Order Date: 01/04/25 Order Info: 86-1 - CMP Order Info: [id number] - LIPID Order Info: 51380-6 - MG Order Info: 3016-3 - TSH Order Info: 3024-7 - T4F Performed By: #### L 500.4050, L100.0100, L501.9520, L506.0400, L500.4100, L501.5200 #### [facility] [address] [place], [place], [address] BUN/CRE 38.4 RATIO High 10-20 [facility] Comment on above: Order Comment: Order Date: 01/04/25 Order Info: 86-1 - CMP Order Info: 76685-6 - LIPID Order Info: [id number] - MG Order Info: 3016-3 - TSH Order Info: 3024-7 - T4F Performed By: #### L 500.4050, L100.0100, L501.9520, L506.0400, L500.4100, L501.5200 #### [facility] [address] [place], [address] Calcium [Mass/Vol] 9.1 mg/dL Normal 7.6-11.0 [facility] Comment on above: Order Comment: Order Date: 01/04/25 Order Info: 0786-1 - CMP Order Info: [id number] - LIPID Order Info: [id number] - MG Order Info: 3016-3 - TSH Order Info: 3024-7 - T4F Performed By: #### L 500.4050, L100.0100, L501.9520, L506.0400, L500.4100, L501.5200 #### [facility] [address] [place], [address] Chloride [Moles/Vol] 102 mmol/L Normal 98-108 [facility] Comment on above: Order Comment: Order Date: 01/04/25 Order Info: 0786-1 - CMP Order Info: [id number] - LIPID Order Info: [id number] - MG Order Info: 3016-3 - TSH Order Info: 3024-7 - T4F Performed By: #### L 500.4050, L100.0100, L501.9520, L506.0400, L500.4100, L501.5200 #### [facility] [address] [place], [address] CO2 [Moles/Vol] 22.6 mmol/L Normal 21.0-32.0 [facility] Comment on above: Order Comment: Order Date: 01/04/25 Order Info: 0786-1 - CMP Order Info: 72375-0 - LIPID Order Info: 14324-2 - MG Order Info: 3016-3 - TSH Order Info: 3024-7 - T4F Performed By: #### L 500.4050, L100.0100, L501.9520, L506.0400, L500.4100, L501.5200 #### [facility] [address] [place], [address] Creatinine [Mass/Vol] 1.11 mg/dL Normal 0.70-1.20 [facility] Comment on above: Order Comment: Order Date: 01/04/25 Order Info: 07-1 - CMP Order Info: [id number] - LIPID Order Info: 52603-6 - MG Order Info: 3016-3 - TSH Order Info: 302-7 - T4F Performed By: #### L 500.4050, L100.0100, L501.9520, L506.0400, L500.4100, L501.5200 #### [facility] [address] [place], [address] GAP 12 Normal 5-15 [facility] Comment on above: Order Comment: Order Date: 01/04/25 Order Info: 785- - CMP Order Info: 91044-0 - LIPID Order Info: 86310-5 - MG Order Info: 3 - TSH Order Info: 7 - T4F Performed By: #### L 500.4050, L100.0100, L501.9520, L506.0400, L500.4100, L501.5200 #### [facility] [address] [place], [place], [address] GFR/1.73 sq M.predicted among non-blacks MDRD (S/P/Bld) [Vol rate/Area] 66 mL/min/{1.73_m2} Normal >60 [facility] Comment on above: Order Comment: Order Date: 01/04/25 Order Info: 785-1 - CMP Order Info: [id number] - LIPID Order Info: 32748-1 - MG Order Info: 3016-3 - TSH Order Info: 3024-7 - T4F Result Comment: mL/m in/1.73m2 CKD-EPI Creatinine Equation (2020) Performed By: #### L 500.4050, L100.0100, L501.9520, L506.0400, L500.4100, L501.5200 #### [facility] [address] [place], [address] Globulin (S) [Mass/Vol] 2.8 g/dL Normal 2.2-4.2 [facility] Comment on above: Order Comment: Order Date: 01/04/25 Order Info: 86-1 - CMP Order Info: [id number] - LIPID Order Info: [id number] - MG Order Info: 3016-3 - TSH Order Info: 3024-7 - T4F Performed By: #### L 500.4050, L100.0100, L501.9520, L506.0400, L500.4100, L501.5200 #### [facility] [address] [place], [address] Glucose [Mass/Vol] 120 mg/dL High 70-99 [facility] Comment on above: Order Comment: Order Date: 01/04/25 Order Info: 785-1 - CMP Order Info: [id number] - LIPID Order Info: 33024-0 - MG Order Info: 3015-3 - TSH Order Info: 3024-7 - T4F Performed By: #### L 500.4050, L100.0100, L501.9520, L506.0400, L500.4100, L501.5200 #### [facility] [address] [place], [address] Potassium [Moles/Vol] 4.8 mmol/L Normal 3.3-5.1 [facility] Comment on above: Order Comment: Order Date: 01/04/25 Order Info: 0786-1 - CMP Order Info: [id number] - LIPID Order Info: [id number] - MG Order Info: 3016-3 - TSH Order Info: 3024-7 - T4F Performed By: #### L 500.4050, L100.0100, L501.9520, L506.0400, L500.4100, L501.5200 #### [facility] [address] [place], [address] Sodium [Moles/Vol] 137 mmol/L Normal 133-145 [facility] Comment on above: Order Comment: Order Date: 01/04/25 Order Info: 0786-1 - CMP Order Info: [id number] - LIPID Order Info: 03224-4 - MG Order Info: 3016-3 - TSH Order Info: 3024-7 - T4F Performed By: #### L 500.4050, L100.0100, L501.9520, L506.0400, L500.4100, L501.5200 #### [facility] [address] [place], [address] T PROT 6.3 g/dL Normal 5.9-8.4 [facility] Comment on above: Order Comment: Order Date: 01/04/25 Order Info: 0786-1 - CMP Order Info: [id number] - LIPID Order Info: [id number] - MG Order Info: 6-3 - TSH Order Info: 3024-7 - T4F Performed By: #### L 500.4050, L100.0100, L501.9520, L506.0400, L500.4100, L501.5200 #### [facility] [address] [place], [place], [address] Urea nitrogen [Mass/Vol] 43 mg/dL High 4-19 [facility] Comment on above: Order Comment: Order Date: 01/04/25 Order Info: 0786-1 - CMP Order Info: [id number] - LIPID Order Info: [id number] - MG Order Info: 3016-3 - TSH Order Info: 3024-7 - T4F Performed By: #### L 500.4050, L100.0100, L501.9520, L506.0400, L500.4100, L501.5200 #### [facility] [address] [place], [place], [address] Eosinophil percentageOrdered By: Janey Sanders on 01-04-2025 Eosinophils/100 WBC (Bld) 1.6 % 0-5 [facility] Erythrocyte distribution wid th ratioOrdered By: Janey Sanders on 01-04-2025 Erythrocyte distribution width (RBC) [Ratio] 13.4 % 11.6-14.6 [facility] Erythrocyte distribution wid th standard deviationOrdered By: Janey Sanders on 01-04-2025 Erythrocyte distribution width (RBC) [Ratio] 45.3 fl High 35.1-43.9 [facility] Glomerular filtration rate ( GFR) estimation/1.73 sq m using serum, plasma, or whole bOrdered By: Janey Sanders on 01-04-2025 GFR/1.73 sq M.predicted among non-blacks MDRD (S/P/Bld) [Vol rate/Area] 66 mL/min/{1.73_m2} >60 [facility] Comment on above: mL/min/1.73m2 CKD-EP I Creatinine Equation (2020) Hematocrit Auto (Bld) [Volum e fraction]Ordered By: Janey Sanders on 01-04-2025 Hematocrit (Bld) [Volume fraction] 35.4 % Low 40-54 [facility] Hemoglobin measurementOrdere d By: Janey Sanders on 01-04-2025 Hemoglobin (Bld) [Mass/Vol] 11.3 g/dL Low 13.0-16.5 [facility] Immature granulocytes/100 WB C Auto (Bld)Ordered By: Janey Sanders on 01-04-2025 Immature granulocytes/100 WBC (Bld) 1.100 % High 0.0-0.9 [facility] Comment on above: IG% - Immature Granu locytes (promyelocytes, myelocytes and metamyelocytes) > 1% indicates that a LEFT SHIFT is Present. Iron measurement (mass/mass) Ordered By: Janey Sanders on 01-04-2025 Iron (Unsp spec) [Mass/Mass] 52 ug/dL Low 65-175 [facility] LDL calc ser/plasOrdered By: Janey Sanders on 01-04-2025 Cholesterol in LDL [Mass/Vol] 46 mg/dL [facility] Comment on above: Aaapkwuzlv=426-045 m g/dL & Higher Hjus=347 mg/dL or greater Laboratory - Chemistry and C hemistry - challengeOrdered By: Janey Sanders on 01-04-2025 AST [Catalytic activity/Vol] 22 U/L <38 [facility] Lipid Profileon 05-15-2025 CHOL:HDL 2.55 Normal [facility] Comment on above: Order Comment: Order Date: 01/04/25 Order Info: 07- - CMP Order Info: [id number] - LIPID Order Info: [id number] - MG Order Info: 3 - TSH Order Info: 3024-02 T4F Performed By: #### L 500.4050, L100.0100, L501.9520, L506.0400, L500.4100, L501.5200 #### [facility] [address] [place], [address] Cholesterol [Mass/Vol] 119 mg/dL Normal <=200 [facility] Comment on above: Order Comment: Order Date: 01/04/25 Order Info: 785-08 - CMP Order Info: [id number] - LIPID Order Info: [id number] - MG Order Info: 3 - TSH Order Info: 3024-02 T4F Result Comment: Chol esterol level, Desirable <200 mg/dL Borderline high cholesterol 200-239 mg/dL High cholesterol >=240 mg/dL Recommendations of the NCEP Adult Treatment Panel for the following risk-cutoff thresholds for the [place] population. Performed By: #### L 500.4050, L100.0100, L501.9520, L506.0400, L500.4100, L501.5200 #### [facility] [address] [place], [place], [address] (631) Cholesterol in HDL [Mass/Vol] 47 mg/dL Normal [facility] Comment on above: Order Comment: Order Date: 01/04/25 Order Info: 07 - CMP Order Info: [id number] - LIPID Order Info: [id number] - MG Order Info: 3015-10 - TSH [...] 500.4050, L100.0100, L501.9520, L506.0400, L500.4100, L501.5200 #### [facility] [address] [place], [address] Cholesterol in LDL [Mass/Vol] 46 mg/dL Normal [facility] Comment on above: Order Comment: Order Date: 01/04/25 Order Info: 86-1 - CMP Order Info: 75311-6 - LIPID Order Info: [id number] - MG Order Info: 3016-3 - TSH Order Info: 7 - T4F Result Comment: Bord lhdpio=617-319 mg/dL Higher Twjj=163 mg/dL or greater Performed By: #### L 500.4050, L100.0100, L501.9520, L506.0400, L500.4100, L501.5200 #### [facility] [address] [place], [address] Cholesterol in VLDL [Mass/Vol] 27 mg/dL Normal 5-40 [facility] Comment on above: Order Comment: Order Date: 01/04/25 Order Info: 785- - CMP Order Info: [id number] - LIPID Order Info: [id number] - MG Order Info: 3016-3 - TSH Order Info: 7 - T4F Performed By: #### L 500.4050, L100.0100, L501.9520, L506.0400, L500.4100, L501.5200 #### [facility] [address] [place], [address] Triglyceride [Mass/Vol] 133 mg/dL Normal [facility] Comment on above: Order Comment: Order Date: 01/04/25 Order Info: 0786-1 - CMP Order Info: [id number] - LIPID Order Info: [id number] - MG Order Info: 3016-3 - TSH Order Info: 3024-7 - T4F Result Comment: The drugs N-Acetylcysteine and Metamizole may falsely depress this assay. Normal range: <150 mg/dL Borderline High: 150-199 mg/dL High: 200-499 mg/dL Very High: >500 mg/dL Performed By: #### L 500.4050, L100.0100, L501.9520, L506.0400, L500.4100, L501.5200 #### [facility] [address] [place], [place], [address] MCV (mean corpuscular volume ) determinationOrdered By: Janey Sanders on 01-04-2025 MCV (RBC) [Entitic vol] 91.7 fL 80-94 [facility] Magnesiumon 01-04-2025 Magnesium [Mass/Vol] 2.4 mg/dL High 1.5-2.2 [facility] Comment on above: Order Comment: Order Date: 01/04/25 Order Info: 0786-1 - CMP Order Info: 13853-0 - LIPID Order Info: [id number] - MG Order Info: 3016-3 - TSH Order Info: 3024-7 - T4F Performed By: #### L 500.4050, L100.0100, L501.9520, L506.0400, L500.4100, L501.5200 #### [facility] [address] [place], [place], [address] Magnesium measurement (mass/ volume)Ordered By: Janey Sanders on 01-04-2025 Magnesium (Unsp spec) [Mass/Vol] 2.4 mg/dL High 1.5-2.2 [facility] Mean corpuscular hemoglobin (MCH) determinationOrdered By: Janey Sanders on 01-04-2025 MCH (RBC) [Entitic mass] 29.3 pg 27.0-32.0 [facility] Mean corpuscular hemoglobin concentration (MCHC) determinationOrdered By: Janey Sanders on 01-04-2025 MCHC (RBC) [Mass/Vol] 31.9 g/dL Low 32-36 [facility] Mean platelet volume determi nationOrdered By: Janey Sanders on 01-04-2025 Platelet mean volume (Bld) [Entitic vol] 9.4 fL 6.2-12.0 [facility] Monocyte percentageOrdered B y: Janey Sanders on 01-04-2025 Monocytes/100 WBC (Bld) 7.6 % 0-10 [facility] Neutrophil percentageOrdered By: Janey Sanders on 01-04-2025 Neutrophils/100 WBC (Bld) 84.4 % High 47-70 [facility] No Panel InformationOrdered By: Janey Sanders on 01-04-2025 Unsaturated Iron Binding Capacity 179 ug/dL Low 228-428 [facility] Nucleated red blood cell per centageOrdered By: Janey Sanders on 01-04-2025 Nucleated RBC/100 WBC (Bld) [Ratio] 0 % 0-5 [facility] Platelet countOrdered By: Neha Sanders on 01-04-2025 Platelets (Bld) [#/Vol] 282 10*3/uL 150-450 [facility] [facility] Potassium measurement (mass/ volume)Ordered By: Janey Sanders on 01-04-2025 Potassium (Unsp spec) [Mass/Vol] 4.8 mmol/L 3.3-5.1 [facility] RBC Auto (Bld) [#/Vol]Ordere d By: Janey Sanders on 01-04-2025 RBC (Bld) [#/Vol] 3.86 10*6/uL Low 4.6-6.2 [facility] [place] Screening total cholesterol/ high density lipoprotein (HDL) cholesterol ratioOrdered By: Janey Sanders on 01-04-2025 Cholesterol.total/Choles terol in HDL [Mass ratio] 2.55 {ratio} [facility] Serum creatinine measurement (mass/volume)Ordered By: Janey Sanders on 01-04-2025 Creatinine [Mass/Vol] 1.11 mg/dL 0.70-1.20 [facility] Serum globulin measurementOr dered By: Janey Sanders on 01-04-2025 Globulin (S) [Mass/Vol] 2.8 g/dL 2.2-4.2 [facility] Serum glucose measurement (m ass/volume)Ordered By: Janey Sanders on 01-04-2025 Glucose [Mass/Vol] 120 mg/dL High 70-99 [facility] Serum or plasma alanine singletary otransferase (ALT) measurementOrdered By: Janey Sanders on 01-04-2025 ALT [Catalytic activity/Vol] 23 U/L <47 [facility] Serum or plasma albumin andrez urement (mass/volume)Ordered By: Janey Sanders on 01-04-2025 Albumin [Mass/Vol] 3.5 g/dL 3.4-4.8 [facility] Serum or plasma albumin/glob ulin mass ratioOrdered By: Janey Sanders on 01-04-2025 Albumin/Globulin [Mass ratio] 1.3 {ratio} 0.9-2.4 [facility] Serum or plasma alkaline shane sphatase measurementOrdered By: Janey Sanders on 01-04-2025 ALP [Catalytic activity/Vol] 72 U/L 40-129 [facility] Serum or plasma calcium andrez urement (mass/volume)Ordered By: Janey Sanders on 01-04-2025 Calcium [Mass/Vol] 9.1 mg/dL 7.6-11.0 [facility] Serum or plasma cholesterol in HDL measurement (mass/volume)Ordered By: Janey Sanders on 01-04-2025 Cholesterol in HDL [Mass/Vol] 47 mg/dL >40 [facility] Comment on above: National Cholesterol Education Program (NCEP) guidelines:<40 mg/dL: Low HDL-cholesterol (major risk factor for CHD)>= 60 mg/dL: High HDL-cholesterol (negative risk factor for CHD)HDL-cholesterol is affected by a number of factors, e.g. smoking, exercise, hormones, sex and age. Serum or plasma cholesterol measurement (mass/volume)Ordered By: Janey Sanders on 01-04-2025 Cholesterol [Mass/Vol] 119 mg/dL <201 [facility] Comment on above: Cholesterol level, D esirable <200 mg/dLBorderline high cholesterol 200-239 mg/dLHigh cholesterol >=240 mg/dLRecommendations of the NCEP Adult Treatment Panel for the following risk-cutoff thresholds for the [place] population. Serum or plasma iron saturat ion measurement (mass fraction)Ordered By: Janey Sanders on 01-04-2025 Iron saturation [Mass fraction] 22.5 % 9-55 [facility] Comment on above: Previous reported re sult: 23.0 %Edited by: NAYA on 01/05/25:1058 AMENDED REPORT 01/05/25 1058 IRON SATURATION previously reported as: 23.0 % Serum or plasma thyroperoxid ase antibody assay (units/volume)Ordered By: Janey Sanders on 01-04-2025 TPO Ab Qn 23 [IU]/mL 0-34 [facility] Comment on above: Performed at: [place] [id number] Director: Apollo Mcgill PhD, Phone: [phone] Serum or plasma urea nitroge n measurement (mass/volume)Ordered By: Janey Sanders on 01-04-2025 Urea nitrogen [Mass/Vol] 43 mg/dL High 4-19 [facility] Sodium levelOrdered By: Janey Sanders on 01-04-2025 Sodium [Moles/Vol] 137 mmol/L 133-145 [facility] T4 Free Directon 01-04-2025 T4 FREE DIRECT 1.10 ng/dL Normal 0.76-1.46 [facility] Comment on above: Order Comment: Order Date: 01/04/25 Order Info: [id number] - CMP Order Info: [id number] - LIPID Order Info: [id number] - MG Order Info: [id number] - TSH Order Info: [id number] - T4F Performed By: #### L 500.4050, L100.0100, L501.9520, L506.0400, L500.4100, L501.5200 #### [facility] [address] [place] [address]. [place], [place], [address] T4 freeOrdered By: Janey munguia on 01-04-2025 Free T4 [Mass/Vol] 1.10 ng/dL 0.76-1.46 [facility] TSH DL <= 0.005 mIU/L QnOrde red By: Janey Sanders on 01-04-2025 TSH Qn 0.362 uIU/mL 0.300-4.200 [facility] Thyroid Stim Hormone (TSH)on 01-04-2025 TSH 0.362 uIU/mL Normal 0.300-4.200 [facility] Comment on above: Order Comment: Order Date: 01/04/25 Order Info: [id number] CMP Order Info: - LIPID Order Info: [id number] - MG Order Info: 3 - TSH Order Info: [id number] - T4F Performed By: #### L 500.4050, L100.0100, L501.9520, L506.0400, L500.4100, L501.5200 #### [facility] [address] [place], [address] Total proteinOrdered By: Hunter Sanders on 01-04-2025 Protein [Mass/Vol] 6.3 g/dL 5.9-8.4 [facility] Triglycerides measurementOrd ered By: Janey Sanders on 01-04-2025 Triglyceride [Mass/Vol] 133 mg/dL <199 [facility] Comment on above: The drugs N-Acetylcy steine and Metamizole may falsely depress this assay. Normal range: <150 mg/dLBorderline High: 150-199 mg/dLHigh: 200-499 mg/dLVery High: >500 mg/dL Vitamin B12on 01-04-2025 Cobalamin (Vitamin B12) [Mass/Vol] 490 pg/mL Normal 180-914 [facility] Comment on above: Order Comment: Order Date: 01/04/25 Order Info: [id number] - CMP Order Info: [id number] - LIPID Order Info: [id number] - MG Order Info: [id number] - TSH Order Info: [id number] - T4F Performed By: #### L 500.4050, L100.0100, L501.9520, L506.0400, L500.4100, L501.5200 #### [facility] [address] [place], [place], [address] Vitamin B12 ser/plasOrdered By: Janey Sanders on 01-04-2025 Cobalamin (Vitamin B12) [Mass/Vol] 490 pg/mL 180-914 [facility] Vitamin D,25 Hydroxyon 01-04 Vitamin D 25-OH 23.0 ng/mL Low 30-100 [facility] Comment on above: Order Comment: Order Date: 01/04/25 Order Info: [id number] - CMP Order Info: [id number] - LIPID Order Info: [id number] - MG Order Info: [id number] - TSH Order Info: [id number] - T4F Result Comment: Keshia min D Status Deficiency: <20 ng/mL (50nmol/L) Insufficiency: 20-30 ng/mL (50-75 nmol/L) Sufficiency: 30-100 ng/mL (75-250 nmol/L) Toxicity: >100 ng/mL (>250 nmol/L) Performed By: #### L 500.4050, L100.0100, L501.9520, L506.0400, L500.4100, L501.5200 #### [facility] [address] [place], [address] White blood cell (WBC) count Ordered By: Janey Sanders on 01-04-2025 WBC (Bld) [#/Vol] 11.0 10*3/uL 4.4-11.0 [facility] [place] .Auto Diffon 12-27-2024 Basophil, Absolute 0.0 10 3/mcL Normal 0.0-0.3 [facility] Comment on above: Performed By: #### A MOHINDER, CBC, BMP, ADIFF, GFR #### [address] [address] Basophils/100 WBC (Bld) 0.2 % Normal 0.0-2.5 [facility] Comment on above: Performed By: #### A MOHINDER, CBC, BMP, ADIFF, GFR #### [address] [address] Eosinophil, Absolute 0.0 10 3/mcL Normal 0.0-0.7 [facility] Comment on above: Performed By: #### A MOHINDER, CBC, BMP, ADIFF, GFR #### [place] [address] [place], [place] [address] Eosinophils/100 WBC (Bld) 0.0 % Normal 0.0-6.0 [facility] Comment on above: Performed By: #### A MOHINDER, CBC, BMP, ADIFF, GFR #### [address] [address] Lymphocyte, Absolute 0.5 10 3/mcL Low 0.9-4.3 [facility] Comment on above: Performed By: #### A MOHINDER, CBC, BMP, ADIFF, GFR #### [address] [address] Lymphocytes/100 WBC (Bld) 3.2 % Low 20.0-40.0 [facility] Comment on above: Performed By: #### A MOHINDER, CBC, BMP, ADIFF, GFR #### [address] [address] Monocyte, Absolute 1.0 10 3/mcL Normal 0.1-1.4 [facility] Comment on above: Performed By: #### A MOHINDER, CBC, BMP, ADIFF, GFR #### [address] [address] Monocytes/100 WBC (Bld) 6.8 % Normal 2.0-13.0 [facility] Comment on above: Performed By: #### A MOHINDER, CBC, BMP, ADIFF, GFR #### [address] [address] Neutrophils/100 WBC (Bld) 89.8 % High 50.0-75.0 [facility] Comment on above: Performed By: #### A MOHINDER, CBC, BMP, ADIFF, GFR #### [address] [address] .GFRon 12-27-2024 Estimated Glomerular Filtration Rate 66 ml/min/1.73sqm Normal [facility] Comment on above: Result Comment: Stages of [...] A MOHINDER, CBC, BMP, ADIFF, GFR #### [address] [address] .NEUABSon 12-27-2024 Neutrophil, Absolute 13.2 10 3/mcL High 2.3-8.1 [facility] Comment on above: Performed By: #### A MOHINDER, CBC, BMP, ADIFF, GFR #### [address] [address] BMPon 12-27-2024 BUN/Creatinine Ratio 46 ratio High 7-27 [facility] Comment on above: Performed By: #### A MOHINDER, CBC, BMP, ADIFF, GFR #### [address] [address] Calcium [Mass/Vol] 8.7 mg/dL Normal 8.4-10.2 [facility] Comment on above: Performed By: #### A MOHINDER, CBC, BMP, ADIFF, GFR #### [address] [address] Chloride [Moles/Vol] 102 mmol/L Normal 98-107 [facility] Comment on above: Performed By: #### A MOHINDER, CBC, BMP, ADIFF, GFR #### [address] [address] CO2 [Moles/Vol] 30 mmol/L Normal 23-31 [facility] Comment on above: Performed By: #### A MOHINDER, CBC, BMP, ADIFF, GFR #### [address] [address] Creatinine [Mass/Vol] 1.11 mg/dL Normal 0.67-1.17 [facility] Comment on above: Performed By: #### A MOHINDER, CBC, BMP, ADIFF, GFR #### [address] [address] Electrolyte Balance 4.0 mEq/L Normal 4.0-15.0 [facility] Comment on above: Performed By: #### A MOHINDER, CBC, BMP, ADIFF, GFR #### [address] [address] Glucose [Mass/Vol] 214 mg/dL High 83-110 [facility] Comment on above: Performed By: #### A MOHINDER, CBC, BMP, ADIFF, GFR #### [address] [address] Potassium [Moles/Vol] 5.6 mmol/L High 3.5-5.1 [facility] Comment on above: Performed By: #### A MOHINDER, CBC, BMP, ADIFF, GFR #### [place] [address] Sodium [Moles/Vol] 136 mmol/L Normal 136-145 [facility] Comment on above: Performed By: #### A MOHINDER, CBC, BMP, ADIFF, GFR #### [place] [address] Urea nitrogen [Mass/Vol] 51 mg/dL High 7-18 [facility] Comment on above: Performed By: #### A MOHINDER, CBC, BMP, ADIFF, GFR #### [place] [id number] CBCon 12-27-2024 Erythrocyte distribution width (RBC) [Ratio] 14.4 % Normal 11.5-15.5 [facility] Comment on above: Performed By: #### A MOHINDER, CBC, BMP, ADIFF, GFR #### [place] [id number] Hematocrit (Bld) [Volume fraction] 36.4 % Low 40.0-52.0 [facility] Comment on above: Performed By: #### A MOHINDER, CBC, BMP, ADIFF, GFR #### [address] [address] Hgb 12.3 G/dL Low 13.0-17.5 [facility] Comment on above: Performed By: #### A MOHINDER, CBC, BMP, ADIFF, GFR #### [address] [address] MCH (RBC) [Entitic mass] 29.3 pg Normal 27.0-33.0 [facility] Comment on above: Performed By: #### A MOHINDER, CBC, BMP, ADIFF, GFR #### [place] [address] MCHC 33.8 G/dL Normal 32.0-36.0 [facility] Comment on above: Performed By: #### A MOHINDER, CBC, BMP, ADIFF, GFR #### [address] [address] MCV (RBC) [Entitic vol] 86.9 fL Normal 81.0-100.0 [facility] Comment on above: Performed By: #### A MOHINDER, CBC, BMP, ADIFF, GFR #### [address] [address] Platelet 177 10 3/mcL Normal 150-450 [facility] Comment on above: Performed By: #### A MOHINDER, CBC, BMP, ADIFF, GFR #### [address] [address] Platelet mean volume (Bld) [Entitic vol] 7.8 fL Normal 6.4-10.5 [facility] Comment on above: Performed By: #### A MOHINDER, CBC, BMP, ADIFF, GFR #### [address] [address] RBC 4.19 10 6/mcL Low 4.50-6.00 [facility] Comment on above: Performed By: #### A MOHINDER, CBC, BMP, ADIFF, GFR #### [address] [address] WBC 14.7 10 3/mcL High 4.5-10.8 [facility] Comment on above: Performed By: #### A MOHINDER, CBC, BMP, ADIFF, GFR #### [address] [address] KOrdered By: SYSTEM SYSTEM o n 12-27-2024 Potassium [Moles/Vol] 5.3 mmol/L High 3.5-5.1 [facility] Comment on above: Performed By: #### K #### [place] [address] LABORATORYOrdered By: Louisa Turner on 12-27-2024 Blood Glucose Testing Reason Routine (12/27/24 11:44 AM) [facility] Work Phone: Glucose [Mass/Vol] 137 mg/dL High 82 - 115 mg/dL [facility] Work Phone: Blood Glucose Testing Reason Routine (12/27/24 8:21 AM) [facility] Work Phone: Glucose [Mass/Vol] 154 mg/dL High 82 - 115 mg/dL [facility] Work Phone: LABORATORYOrdered By: SYSTEM SYSTEM [...] 12-26-2024 ABO/Rh Interp Positive Invalid Interpretation Code [facility] Comment on above: Performed By: #### A SRAAH ABSGEL #### [address] [address] ABS (Gel)on 12-26-2024 ABSC Interp (Gel) Negative Normal [facility] Comment on above: Performed By: #### Judith SMITH ABSGEL #### [address] [address] LABORATORYOrdered By: Pablo Mars on 12-26-2024 Blood Glucose Testing Reason Routine (12/26/24 9:01 PM) [facility] Work Phone: Glucose [Mass/Vol] 199 mg/dL High 82 - 115 mg/dL [facility] Work Phone: LABORATORYOrdered By: Angela Gonzalez [...] not reported on this accession number. Normal [facility] XR HIP RIGHT W/PELVIS 4 VIEW Son [...] 9:42:17 AM Ordering Provider: HERSON HE Normal [facility] ALBon 12-14-2024 Albumin Level 3.9 G/dL Normal 3.4-4.8 [facility] Comment on above: Performed By: #### G FR, ALB, BMP ####[facility] [place], [place] [address] .Auto Diffon 12-13-2024 Basophil, Absolute 0.0 10 3/mcL Normal 0.0-0.3 [facility] Comment on above: Performed By: #### A BSGEL ABOGEL, CBC, ADIFF, ANEU ####[place] [address] [place], [place] [address] Basophils/100 WBC (Bld) 0.5 % Normal 0.0-2.5 [facility] Comment on above: Performed By: #### A BSGEL, ABOGEL, CBC, ADIFF, ANEU ####[place] [address] [place], [place] [address] Eosinophil, Absolute 0.2 10 3/mcL Normal 0.0-0.7 [facility] Comment on above: Performed By: #### A BSGEL, ABOGEL, CBC, ADIFF, ANEU ####[place] [address] [place], [place] [address] Eosinophils/100 WBC (Bld) 2.6 % Normal 0.0-6.0 [facility] Comment on above: Performed By: #### A BSGEL, ABOGEL, CBC, ADIFF, ANEU ####[place] [address] [place], [place] [address] Lymphocyte, Absolute 1.0 10 3/mcL Normal 0.9-4.3 [facility] Comment on above: Performed By: #### A BSGEL, ABOGEL, CBC, ADIFF, ANEU ####[place] [address] [place], [place] [address] Lymphocytes/100 WBC (Bld) 14.2 % Low 20.0-40.0 [facility] Comment on above: Performed By: #### A BSGEL, ABOGEL, CBC, ADIFF, ANEU ####[place] [address] [place], [place] [address] Monocyte, Absolute 0.7 10 3/mcL Normal 0.1-1.4 [facility] Comment on above: Performed By: #### A BSGEL, ABOGEL, CBC, ADIFF, ANEU ####[place] [address] [place], [place] [address] Monocytes/100 WBC (Bld) 9.0 % Normal 2.0-13.0 [facility] Comment on above: Performed By: #### A BSGEL, ABOGEL, CBC, ADIFF, ANEU ####[place] [address] [place], [place] [address] Neutrophils/100 WBC (Bld) 73.7 % Normal 50.0-75.0 [facility] Comment on above: Performed By: #### A BSGEL, ABOGEL, CBC, ADIFF, ANEU ####[place] [place], [place] [address] .GFRon 12-13-2024 Estimated Glomerular Filtration Rate 66 ml/min/1.73sqm Normal [facility] Comment on above: Result Comment: Stages of [...] Performed By: #### G FR, ALB, BMP ####[place] [address] [place], [place] [address] .NEUABSon 12-13-2024 Neutrophil, Absolute 5.3 10 3/mcL Normal 2.3-8.1 [facility] Comment on above: Performed By: #### A BSGEL, ABOGEL, CBC, ADIFF, ANEU ####[place] [address] [place], [place] [address] ABO/Rh (Gel)on 12-13-2024 ABO/Rh Interp Positive Invalid Interpretation Code [facility] Comment on above: Performed By: #### A BSGEL, ABOGEL, CBC, ADIFF, ANEU ####[place] [address] [place], [place] [address] ABS (Gel)on 12-13-2024 ABSC Interp (Gel) Negative Normal [facility] Comment on above: Performed By: #### A BSGEL, ABOGEL, CBC, ADIFF, ANEU ####[place] [address] [place], [place] [address] BMPon 12-13-2024 BUN/Creatinine Ratio 43 ratio High 7-27 [facility] Comment on above: Performed By: #### G FR, ALB, BMP ####[place] [address] [place], [place] [address] Calcium [Mass/Vol] 9.5 mg/dL Normal 8.4-10.2 [facility] Comment on above: Performed By: #### Heather SMITH ALB, BMP ####[place] [address] [place], [place] [address] Chloride [Moles/Vol] 106 mmol/L Normal 98-107 [facility] Comment on above: Performed By: #### Heather SMITH ALB, BMP ####[place] [address] [place], [place] [address] CO2 [Moles/Vol] 27 mmol/L Normal 23-31 [facility] Comment on above: Performed By: #### Heather SMITH ALB, BMP ####[place] [address] [place], [place] [address] Creatinine [Mass/Vol] 1.11 mg/dL Normal 0.67-1.17 [facility] Comment on above: Performed By: #### Heather SMITH ALB, BMP ####[place] [address] [place], [place] [address] Electrolyte Balance 7.0 mEq/L Normal 4.0-15.0 [facility] Comment on above: Performed By: #### Heather SMITH ALB, BMP ####[place] [address] [place], [place] [address] Glucose [Mass/Vol] 109 mg/dL Normal 83-110 [facility] Comment on above: Performed By: #### Heather SMITH ALB, BMP ####[place] [address] [place], [place] [address] Potassium [Moles/Vol] 4.9 mmol/L Normal 3.5-5.1 [facility] Comment on above: Performed By: #### Heather FR, ALB, BMP ####[place] [address] [place], [place] [address] Sodium [Moles/Vol] 140 mmol/L Normal 136-145 [facility] Comment on above: Performed By: #### Heather FR ALB, BMP ####[place] [address] [place], [place] [address] Urea nitrogen [Mass/Vol] 48 mg/dL High 7-18 [facility] Comment on above: Performed By: #### G FR, ALB, BMP ####[place] [address] [place], [place] [address] CBCon 12-13-2024 Erythrocyte distribution width (RBC) [Ratio] 14.6 % Normal 11.5-15.5 [facility] Comment on above: Order Comment: Pre-A dmission Testing Performed By: #### A BSGEL, ABOGEL, CBC, ADIFF, ANEU ####[place] [address] [place], [place] [address] Hematocrit (Bld) [Volume fraction] 42.6 % Normal 40.0-52.0 [facility] Comment on above: Order Comment: Pre-A dmission Testing Performed By: #### A BSGEL, ABOGEL, CBC, ADIFF, ANEU ####[place] [address] [place], [place] [address] Hgb 14.1 G/dL Normal 13.0-17.5 [facility] Comment on above: Order Comment: Pre-A dmission Testing Performed By: #### A BSGEL, ABOGEL, CBC, ADIFF, ANEU ####[place] [address] [place], [place] [address] MCH (RBC) [Entitic mass] 28.9 pg Normal 27.0-33.0 [facility] Comment on above: Order Comment: Pre-A dmission Testing Performed By: #### A BSGEL, ABOGEL, CBC, ADIFF, ANEU ####[place] [address] [place], [place] [address] MCHC 33.2 G/dL Normal 32.0-36.0 [facility] Comment on above: Order Comment: Pre-A dmission Testing Performed By: #### A BSGEL, ABOGEL, CBC, ADIFF, ANEU ####[place] [address] [place], [place] [address] MCV (RBC) [Entitic vol] 87.1 fL Normal 81.0-100.0 [facility] Comment on above: Order Comment: Pre-A dmission Testing Performed By: #### A BSGEL, ABOGEL, CBC, ADIFF, ANEU ####[place] [address] [place], [place] [address] Platelet 192 10 3/mcL Normal 150-450 [facility] Comment on above: Order Comment: Pre-A dmission Testing Performed By: #### A BSGEL, ABOGEL, CBC, ADIFF, ANEU ####[place] [address] [place], [place] [address] Platelet mean volume (Bld) [Entitic vol] 7.9 fL Normal 6.4-10.5 [facility] Comment on above: Order Comment: Pre-A dmission Testing Performed By: #### A BSGEL, ABOGEL, CBC, ADIFF, ANEU ####[place] [address] [place], [place] [address] RBC 4.88 10 6/mcL Normal 4.50-6.00 [facility] Comment on above: Order Comment: Pre-A dmission Testing Performed By: #### A BSGEL, ABOGEL, CBC, ADIFF, ANEU ####[place] [address] [place], [place] [address] WBC 7.2 10 3/mcL Normal 4.5-10.8 [facility] Comment on above: Order Comment: Pre-A dmission Testing Performed By: #### A BSGEL, ABOGEL, CBC, ADIFF, ANEU ####[place] [address] [place], [place] [address] LABORATORYOrdered By: Yinka Campo on 12-13-2024 ABO and Rh group Nom (Bld) Blood group O Rh(D) positive Invalid Interpretation Code AO BB Auto SS Blood group antibody screen Ql Negative ABSC (12/13/24 9:39 AM) Normal AO BB Auto SS LABORATORYOrdered By: [employer] on 12-13-2024 Basophils (Bld) [#/Vol] 0.0 [...] Comment on above: Result Comment: [place] [id number] MRSA PCR Int MRSA DNA not detecte [...] MRSA (PCR) Not detected Normal Not Detected [facility] Comment on above: [place]: [place] [id number] Performed By: #### M RSAPCR ####[facility] [place] [address] MRSA PCR Int Normal [facility] Comment on above: Result Comment: MRSA DNA [...] See Below Performed By: #### M RSAPCR ####[facility] [place] [address] Testicular with Arterial Bruno won 12-01-2024 Testicular with Arterial Flow [facility] [address] [place] [address] Testicular with Arterial Flow MR#: [id number] Acct: [id number] Name: LUC GANNON Rep #: [id number] : 1940 M 84 From: Mildred Paredes nd, [place] PCP: Dr. Mary Abernathy MD Status: REG CLI Study: Testicular with Arterial Flow Date of Exam: Exam# [id number] Ordering Dr: Mary Abernathy MD PROCEDURE: TESTICULAR [...] recommend evaluation with focused ultrasound. Reading Location: [facility] CC: Dr. Mary Abernathy MD Maintenance Advisor: Signed Normal [facility] Anion gap in Serum or Plasma Ordered By: Kp James on 11-24-2024 Anion gap [Moles/Vol] 9 mmol/L 5-15 [facility] BUN/creatinine ratioOrdered By: Kp James on 11-24-2024 Urea nitrogen/Creatinine [Mass ratio] 32.4 mg/mg High 10-20 [facility] Bilirubin, totalOrdered By: Kp James on 11-24-2024 Bilirubin [Mass/Vol] 0.50 mg/dL 0.00-1.30 [facility] Carbon dioxide, total [Moles /volume] in Central venous bloodOrdered By: Kp James on 11-24-2024 CO2 [Moles/Vol] 25.2 mmol/L 21.0-32.0 [facility] Chloride assayOrdered By: Candis James on 11-24-2024 Chloride [Moles/Vol] 106 mmol/L 98-108 [facility] Comprehensive Metabolic Prof ilon 11-24-2024 Albumin [Mass/Vol] 4.1 g/dL Normal 3.4-4.8 [facility] Comment on above: Performed By: #### L 500.4050, L100.0100, L501.9520, L506.0400, L500.4100, L501.5200 #### [facility] [address] [place], [address] Albumin/Globulin [Mass ratio] 1.6 {ratio} Normal 0.9-2.4 [facility] Comment on above: Performed By: #### L 500.4050, L100.0100, L501.9520, L506.0400, L500.4100, L501.5200 #### [facility] [address] [place], [address] ALK PHOS 87 U/L Normal 40-129 [facility] Comment on above: Performed By: #### L 500.4050, L100.0100, L501.9520, L506.0400, L500.4100, L501.5200 #### [facility] [address] [place], [address] ALT [Catalytic activity/Vol] 19 U/L Normal <=46 [facility] Comment on above: Performed By: #### L 500.4050, L100.0100, L501.9520, L506.0400, L500.4100, L501.5200 #### [facility] [address] [place], [address] AST [Catalytic activity/Vol] 18 U/L Normal <=37 [facility] Comment on above: Performed By: #### L 500.4050, L100.0100, L501.9520, L506.0400, L500.4100, L501.5200 #### [facility] [address] [place], [address] Bilirubin [Mass/Vol] 0.50 mg/dL Normal 0.00-1.30 [facility] Comment on above: Performed By: #### L 500.4050, L100.0100, L501.9520, L506.0400, L500.4100, L501.5200 #### [facility] [address] [place], [address] BUN/CRE 32.4 RATIO High 10-20 [facility] Comment on above: Performed By: #### L 500.4050, L100.0100, L501.9520, L506.0400, L500.4100, L501.5200 #### [facility] [address] [place], [address] Calcium [Mass/Vol] 9.4 mg/dL Normal 7.6-11.0 [facility] Comment on above: Performed By: #### L 500.4050, L100.0100, L501.9520, L506.0400, L500.4100, L501.5200 #### [facility] [address] [place], [address] Chloride [Moles/Vol] 106 mmol/L Normal 98-108 [facility] Comment on above: Performed By: #### L 500.4050, L100.0100, L501.9520, L506.0400, L500.4100, L501.5200 #### [facility] [address] [place], [address] CO2 [Moles/Vol] 25.2 mmol/L Normal 21.0-32.0 [facility] Comment on above: Performed By: #### L 500.4050, L100.0100, L501.9520, L506.0400, L500.4100, L501.5200 #### [facility] [address] [place], [address] Creatinine [Mass/Vol] 1.31 mg/dL High 0.70-1.20 [facility] Comment on above: Performed By: #### L 500.4050, L100.0100, L501.9520, L506.0400, L500.4100, L501.5200 #### [facility] [address] [place], [address] GAP 9 Normal 5-15 [facility] Comment on above: Performed By: #### L 500.4050, L100.0100, L501.9520, L506.0400, L500.4100, L501.5200 #### [facility] [address] [place], [address] GFR/1.73 sq M.predicted among non-blacks MDRD (S/P/Bld) [Vol rate/Area] 54 mL/min/{1.73_m2} Low >60 [facility] Comment on above: Result Comment: mL/m in/1.73m2 CKD-EPI Creatinine Equation (2020) Performed By: #### L 500.4050, L100.0100, L501.9520, L506.0400, L500.4100, L501.5200 #### [facility] [address] [place], [address] Globulin (S) [Mass/Vol] 2.6 g/dL Normal 2.2-4.2 [facility] Comment on above: Performed By: #### L 500.4050, L100.0100, L501.9520, L506.0400, L500.4100, L501.5200 #### [facility] [address] [place], [address] Glucose [Mass/Vol] 125 mg/dL High 70-99 [facility] Comment on above: Performed By: #### L 500.4050, L100.0100, L501.9520, L506.0400, L500.4100, L501.5200 #### [facility] [address] [place], [address] Potassium [Moles/Vol] 5.1 mmol/L Normal 3.3-5.1 [facility] Comment on above: Performed By: #### L 500.4050, L100.0100, L501.9520, L506.0400, L500.4100, L501.5200 #### [facility] [address] [place], [address] Sodium [Moles/Vol] 141 mmol/L Normal 133-145 [facility] Comment on above: Performed By: #### L 500.4050, L100.0100, L501.9520, L506.0400, L500.4100, L501.5200 #### [facility] [address] [place], [address] T PROT 6.7 g/dL Normal 5.9-8.4 [facility] Comment on above: Performed By: #### L 500.4050, L100.0100, L501.9520, L506.0400, L500.4100, L501.5200 #### [facility] [address] [place], [address] Urea nitrogen [Mass/Vol] 43 mg/dL High 4-19 [facility] Comment on above: Performed By: #### L 500.4050, L100.0100, L501.9520, L506.0400, L500.4100, L501.5200 #### [facility] [address] [place], [address] Free T3on 11-24-2024 Free T3 [Mass/Vol] 2.9 pg/mL Normal 2.18-3.98 [facility] Comment on above: Performed By: #### L 500.4050, L100.0100, L501.9520, L506.0400, L500.4100, L501.5200 #### [facility] [address] [place], [address] Free S5Quywjip By: Kp juarez on 11-24-2024 Free T3 [Mass/Vol] 2.9 pg/mL 2.18-3.98 [facility] Free Triiodothyronine (T3) pg/dL 2.9 pg/mL 2.18-3.98 [facility] GFR/1.73 sq M.predicted france g non-blacks MDRD (S/P/Bld) [Vol rate/Area]Ordered By: Kp James on 11-24-2024 Estimated GFR (MDRD) Non-Af Amer 54 Low >60 [facility] Comment on above: mL/min/1.73m2 CKD-EP I Creatinine Equation (2020) Glomerular filtration rate ( GFR) estimation/1.73 sq m using serum, plasma, or whole bOrdered By: Kp James on 11-24-2024 GFR/1.73 sq M.predicted among non-blacks MDRD (S/P/Bld) [Vol rate/Area] 54 mL/min/{1.73_m2} Low >60 [facility] Comment on above: mL/min/1.73m2 CKD-EP I Creatinine Equation (2020) Hemoglobin A1con 11-24-2024 HbA1c (Bld) [Mass fraction] 6.9 % Normal <=5.6 [facility] Comment on above: Performed By: #### L 500.4050, L100.0100, L501.9520, L506.0400, L500.4100, L501.5200 #### [facility] [place], [address] Hemoglobin A1c percentageOrd ered By: Kp James on 11-24-2024 HbA1c (Bld) [Mass fraction] 6.9 % >5.7 [facility] - Chemistry and C hemistry - challengeOrdered By: Kp James on 11-24-2024 AST [Catalytic activity/Vol] 18 U/L <38 [facility] Potassium (Unsp spec) [Mass/ Vol]Ordered By: Kp James on 11-24-2024 Potassium [Moles/Vol] 5.1 mmol/L 3.3-5.1 [facility] Potassium measurement (mass/ volume)Ordered By: Kp James on 11-24-2024 Potassium (Unsp spec) [Mass/Vol] 5.1 mmol/L 3.3-5.1 [facility] Serum creatinine measurement (mass/volume)Ordered By: Kp James on 11-24-2024 Creatinine [Mass/Vol] 1.31 mg/dL High 0.70-1.20 [facility] Serum globulin measurementOr dered By: Kp James on 11-24-2024 Globulin (S) [Mass/Vol] 2.6 g/dL 2.2-4.2 [facility] Serum glucose measurement (m ass/volume)Ordered By: Kp James on 11-24-2024 Glucose [Mass/Vol] 125 mg/dL High 70-99 [facility] Serum or plasma alanine singletary otransferase (ALT) measurementOrdered By: Kp James on 11-24-2024 ALT [Catalytic activity/Vol] 19 U/L <47 [facility] Serum or plasma albumin andrez urement (mass/volume)Ordered By: Kp James on 11-24-2024 Albumin [Mass/Vol] 4.1 g/dL 3.4-4.8 [facility] Serum or plasma albumin/glob ulin mass ratioOrdered By: Kp James on 11-24-2024 Albumin/Globulin [Mass ratio] 1.6 {ratio} 0.9-2.4 [facility] Serum or plasma alkaline shane sphatase measurementOrdered By: Kp James on 11-24-2024 ALP [Catalytic activity/Vol] 87 U/L 40-129 [facility] Serum or plasma calcium andrez urement (mass/volume)Ordered By: Kp James on 11-24-2024 Calcium [Mass/Vol] 9.4 mg/dL 7.6-11.0 [facility] Serum or plasma urea nitroge n measurement (mass/volume)Ordered By: Kp James on 11-24-2024 Urea nitrogen [Mass/Vol] 43 mg/dL High 4-19 [facility] Sodium levelOrdered By: Christiano James on 11-24-2024 Sodium [Moles/Vol] 141 mmol/L 133-145 [facility] T4 Free Directon 11-24-2024 T4 FREE DIRECT 1.00 ng/dL Normal 0.76-1.46 [facility] Comment on above: Performed By: #### L 500.4050, L100.0100, L501.9520, L506.0400, L500.4100, L501.5200 #### [facility] [place], [address] T4 freeOrdered By: Kp juarez on 11-24-2024 Free T4 [Mass/Vol] 1.00 ng/dL 0.76-1.46 [facility] TSH DL <= 0.005 mIU/L QnOrde red By: Kp Erika on 11-24-2024 Thyroid Stimulating Hormone (TSH) 0.241 uIU/mL Low 0.300-4.200 [facility] TSH Qn 0.241 uIU/mL Low 0.300-4.200 [facility] Thyroid Stim Hormone (TSH)on 11-24-2024 TSH 0.241 uIU/mL Low 0.300-4.200 [facility] Comment on above: Performed By: #### L 500.4050, L100.0100, L501.9520, L506.0400, L500.4100, L501.5200 #### [facility] [address] [place], [place], [address] Total proteinOrdered By: Dewayne James on 11-24-2024 Protein [Mass/Vol] 6.7 g/dL 5.9-8.4 [facility] Hips B/L min 2 views w/ Pelv adele 11-07-2024 Hips B/L min 2 views w/ Pelvis [facility] [address] [place], [place] [address] Hips B/L min 2 views w/ Pelvis MR#: [id number] Acct: [id number] Name: LUC GANNON Rep #: [id number] : 1940 M 84 From: Vinod Recinos MD PCP: Dr. Mary Abernathy MD Status: REG CLI Study: Hips B/L min 2 views w/ Pelvis Date of Exam: 0 11/07/24 Exam# [id number] Ordering Dr: Mary Abernathy MD EXAM: XR [...] 2. Degenerative changes as above. Reading Location: [facility] CC: Dr. Mary Abernathy MD Maintenance Advisor: Signed Normal [facility] Special Stain Group IIon Special Stain Group II ----- ---- Patient Age/Sex Location Account Attending Physician ---- LUC GANNON 83/M LABSPEC [id number] Dr. Pedro Segura MD ---- Specimen: [id number] Received: 07/11/24 Status: AGUILA Kevin Num: [id number] Spec Type: Fluid Subm Dr: Dr. Pedro Segura MD HEADER OPERATION: Fine needle aspiration of thyroid nodules PRE-OP DIAGNOSIS: Thyroid nodules TISSUE SUBMITTED: A- Right thyroid nodule fluid, B- Right thyroid nodule slides, C- Isthmic nodule fluid, D- Isthmus nodule slides ---- DIAGNOSIS CYTOLOGY A. Right thyroid nodule fluid, fine needle aspiration (cytospin and cellblock): Consistent with a benign follicular nodule, [place] Category II. B. Right thyroid nodule, fine needle aspiration (smears): Consistent with a benign follicular nodule, [place] Category II. C. Isthmic nodule fluid, fine needle aspiration (cytospin and cellblock): Consistent with a benign follicular nodule, [place] Category II. D. Isthmus nodule, fine needle aspiration (smears): Consistent with a benign follicular nodule, [place] Category II. FA.mr 07/12/2024 COMMENT Material is [...] Attending Physician ---- LUC GANNON 83/M LABSPEC [id number] Dr. Pedro Segura MD ---- CPT: 96490q8,08381h8 Signed (signature on file) Dr. Bruno Hebert MD 07/12/24 1303 ---- Normal [facility] Comment on above: Performed By: #### L 500.4050, L100.0100, L501.9520, L506.0400, L500.4100, L501.5200 #### [facility] [address] [place], [place], [address] Surgery Visit Reporton 07-10 Surgery Visit Report [facility] [address] [place] [address] OFFICE VISIT Date of Service: 07/10/24 MR#: [id number] Acct: [id number] Name: LUC GANNON Rep #: [id number] : 1940 Provider: Dr. Pedro todd MD Age/Sex: 83/M Location: [facility] Status: Signed Intake Vital Signs 11/29/23 07:26 [...] biopsy was diagnostic and given the clear [place] 2 designation. He presents today for repeat biopsy given previous nondiagnostic results. 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 Normal [facility] Basic Metabolic Profile (BMP )on 06-23-2024 BUN/CRE 21.5 RATIO High 10-20 [facility] Comment on above: Performed By: #### L 501.9520, L501.9985, L501.91088, L500.2500, L506.0400 #### [facility] [address] [place], [address] CA,Total 9.5 mg/dL Normal 8.5-10.1 [facility] Comment on above: Performed By: #### L 501.9520, L501.9985, L501.75899, L500.2500, L506.0400 #### [facility] [address] [place], [address] Chloride [Moles/Vol] 108 mmol/L High 98-107 [facility] Comment on above: Performed By: #### L 501.9520, L501.9985, L501.40081, L500.2500, L506.0400 #### [facility] [address] [place], [address] CO2 [Moles/Vol] 28.0 mmol/L Normal 21.0-32.0 [facility] Comment on above: Performed By: #### L 501.9520, L501.9985, L501.11204, L500.2500, L506.0400 #### [facility] [address] [place], [address] Creatinine [Mass/Vol] 1.07 mg/dL Normal 0.70-1.30 [facility] Comment on above: Result Comment: The validity of the calculated GFR GFRAA in patients over 70 years has not been determined. Clinical correlation is essential. Performed By: #### L 501.9520, L501.9985, L501.15159, L500.2500, L506.0400 #### [facility] [address] [place], [address] EST GFR - AA 85 mL/min Normal >60 [facility] Comment on above: Result Comment: Afri can [facility] GFR Calc Performed By: #### L 501.9520, L501.9985, L501.94873, L500.2500, L506.0400 #### [facility] [address] [place], [address] GAP 6 Normal 5-15 [facility] Comment on above: Performed By: #### L 501.9520, L501.9985, L501.82104, L500.2500, L506.0400 #### [facility] [address] [place], [address] GFR/1.73 sq M.predicted among non-blacks MDRD (S/P/Bld) [Vol rate/Area] 70 mL/min/{1.73_m2} Normal >60 [facility] Comment on above: Result Comment: Non- GFR Calc Performed By: #### L 501.9520, L501.9985, L501.94092, L500.2500, L506.0400 #### [facility] [address] [place], [address] Glucose [Mass/Vol] 149 mg/dL High 74-106 [facility] Comment on above: Result Comment: Fast ing Glucose result greater than or equal to 126 mg/dL suggests DIABETES MELLITUS per A.D.A. criteria. Performed By: #### L 501.9520, L501.9985, L501.78845, L500.2500, L506.0400 #### [facility] [address] [place], [address] Potassium [Moles/Vol] 4.8 mmol/L Normal 3.5-5.1 [facility] Comment on above: Performed By: #### L 501.9520, L501.9985, L501.34420, L500.2500, L506.0400 #### [facility] [address] [place], [address] Sodium [Moles/Vol] 142 mmol/L Normal 136-145 [facility] Comment on above: Performed By: #### L 501.9520, L501.9985, L501.43015, L500.2500, L506.0400 #### [facility] [address] [place], [address] Urea nitrogen [Mass/Vol] 23 mg/dL High 7-18 [facility] Comment on above: Performed By: #### L 501.9520, L501.9985, L501.17139, L500.2500, L506.0400 #### [facility] [address] [place], [address] Free T3on 06-23-2024 Free T3 [Mass/Vol] 2.6 pg/mL Normal 2.18-3.98 [facility] Comment on above: Performed By: #### P SSII #### [facility] [address] [place], [address] Hemoglobin A1con 06-23-2024 HbA1c (Bld) [Mass fraction] 6.5 % High 3.8-5.6 [facility] Comment on above: Result Comment: Norm al < 5.7 % Prediabetic 5.7 - 6.4 % Diabetic >or= 6.5 % Please note range changes. Performed By: #### L 501.9520, L501.9985, L501.67997, L500.2500, L506.0400 #### [facility] [address] [place], [address] T4 Free Directon 06-23-2024 T4 FREE DIRECT 0.79 ng/dL Normal 0.76-1.46 [facility] Comment on above: Performed By: #### P SSII #### [facility] [address] [place], [address] Thyroid Stim Hormone (TSH)on 06-23-2024 TSH 0.404 uIU/mL Normal 0.358-3.740 [facility] Comment on above: Performed By: #### P SSII #### [facility] [address] [place], [address] Special Stain Group IIon Special Stain Group II ----- ---- Patient Age/Sex Location Account Attending Physician ---- LUC GANNON 83/M LABSPEC [id number] Dr. Pedro Segura MD ---- Specimen: [id number] Received: 06/07/24 Status: AGUILA Brown Num: [id number] Spec Type: Fluid Subm Dr: Dr. Pedro [...] nodule, fine needle aspiration (smears): Non-diagnostic specimen, [place] Category I. See comment. C. Left mid thyroid fluid, fine needle aspiration (cytospin and cellblock): Negative for malignant cells. See comment. D. Left mid thyroid, fine needle aspiration (smears): Consistent with benign follicular cells colloid nodule with cystic changes, [place] Category II. Adequate for evaluation. E. Right posterior mid thyroid nodule, fine needle aspiration (cytospin and cellblock): Negative for malignant cells. A few clusters of benign follicular cells are noted See comment. F. Right mid thyroid nodule, fine needle aspiration (smears): Non-diagnostic specimen, [place] Category I. 06/08/2024 COMMENT A, B. The [...] Attending Physician ---- LUC GANNON 83/M LABSPEC [id number] Dr. Pedro Segura MD ---- CYTOLOGY STUDY [...] nodule. Submitted for staining. 06/07/2024 TC:5 CPT: 44348 x6, 24250 x3 Signed (signature on file) Dr. Tad Noland MD 06/08/24 1218 ---- Normal [facility] Comment on above: Performed By: #### P SSII #### [facility] [address] [place], [address] Surgery Visit Reporton 06-07 Surgery Visit Report [facility] [address] [place] [address] OFFICE VISIT Date of Service: 06/07/24 MR#: [id number] Acct: [id number] Name: LUC GANNON Rep #: [id number] : 1940 Provider: Dr. Pedro todd MD Age/Sex: 83/M Location: [facility] Status: Signed Intake Vital Signs 11/29/23 07:26 [...] of breat (more content not included)... Normal [facility] TRAB 05-17-2024 TSH Receptor Ab <1.10 Normal 0.00-1.75 [facility] Comment on above: Result Comment: Perf ormed At: [facility] [address] [id number] Ryan Perkins MD Ph:[phone] Performed By: #### F T3, FT4, 952112, TSH, BMP, GFR #### [place] [address] .GFRon 05-15-2024 GFR >60 Normal [facility] Comment on above: Result Comment: [...] meters Performed By: #### F T3, FT4, 598642, TSH, BMP, GFR #### [address] [address] GFR Non- >60 Normal [facility] Comment on above: Result Comment: [...] meters Performed By: #### F T3, FT4, 718177, TSH, BMP, GFR #### [address] [address] BMPon 05-15-2024 BUN/Creatinine Ratio 28.1 ratio High 10.0-22.0 [facility] Comment on above: Performed By: #### F T3, FT4, 435089, TSH, BMP, GFR #### [address] [address] Calcium [Mass/Vol] 9.4 mg/dL Normal 8.7-10.[address] [facility] Comment on above: Performed By: #### F T3, FT4, 415278, TSH, BMP, GFR #### [address] [address] Chloride [Moles/Vol] 109 mmol/L Normal 98-110 [facility] Comment on above: Performed By: #### F T3, FT4, 888175, TSH, BMP, GFR #### [address] [address] CO2 [Moles/Vol] 32 mmol/L Normal 22-32 [facility] Comment on above: Performed By: #### F T3, FT4, 730352, TSH, BMP, GFR #### [address] [address] Creatinine [Mass/Vol] 0.89 mg/dL Normal 0.60-1.40 [facility] Comment on above: Result Comment: Test ing performed on [employer] analyzer using enzymatic creatinine methodology. Performed By: #### F T3, FT4, 884409, TSH, BMP, GFR #### [address] [address] Electrolyte Balance 4.0 mEq/L Normal 4.0-15.0 [facility] Comment on above: Performed By: #### F T3, FT4, 418116, TSH, BMP, GFR #### [address] [address] Glucose [Mass/Vol] 111 mg/dL Normal 82-[address] [facility] Comment on above: Performed By: #### F T3, FT4, 782717, TSH, BMP, GFR #### [address] [address] Potassium [Moles/Vol] 4.5 mmol/L Normal 3.5-5.0 [facility] Comment on above: Performed By: #### F T3, FT4, 740047, TSH, BMP, GFR #### [address] [address] Sodium [Moles/Vol] 145 mmol/L Normal 136-[address] [facility] Comment on above: Performed By: #### F T3, FT4, 933144, TSH, BMP, GFR #### [address] [address] Urea nitrogen [Mass/Vol] 25.0 mg/dL High 8.0-22.0 [facility] Comment on above: Performed By: #### F T3, FT4, 783751, TSH, BMP, GFR #### [facility] [address] [place] [address] FT3on 05-15-2024 Free T3 [Mass/Vol] 3.20 pg/mL Normal 2.30-4.[address] [facility] Comment on above: Performed By: #### F T3, FT4, 180007, TSH, BMP, GFR #### [facility] [address] [place] [address] FT4on 05-15-2024 Free T4 [Mass/Vol] 0.95 ng/dL Normal 0.89-1.[address] [facility] Comment on above: Result Comment: No te - New Reference Range in effect 20 Performed By: #### F T3, FT4, 783303, TSH, BMP, GFR #### [place] [address] TSHon 05-15-2024 TSH 0.094 mIU/mL Low 0.550-4.780 [facility] Comment on above: Order Comment: DUE N OW Result Comment: No te - New Reference Range in effect 20 Performed By: #### F T3, FT4, 229170, TSH, BMP, GFR #### [place] [address] NM THYROID IMAGING W/UPTAKE MULTIPLEon 05-04-2024 NM [...] 9:48:59 AM Ordering Provider: KP JAMES [facility] Thyroidon 04-13-2024 Thyroid [facility] [address] [place] [address] Thyroid MR#: [id number] Acct: [id number] Name: LUC GANNON Rep #: [id number] : 1940 M 83 From: Parminder Hwang MD PCP: Dr. Mary Abernathy MD Status: REG CLI Study: Thyroid Date of Exam: 04/13/24 Exam# [id number] Ordering Dr: KP JAMES [id number] STUDY: THYROID ULTRASOUND REASON FOR EXAM: Male, [...] CC: KP JAMES; Dr. Mary Abernathy MD Maintenance Advisor: Signed Normal [facility] Jorje 04-06-2024 TSI <0.10 Normal 0.00-0.55 [facility] ([place]) Comment on above: Result Comment: Perf ormed At: [facility] [id number] Ryan Perkins MD Ph:[phone] Performed By: #### F T3, THYAB, B12, FT4, GFR, CRP, CMP, CBC, TSH, ESR, ADIFF, ANEU, 376254, VIDH #### [place] [address] .ATG SOon 04-05-2024 Thyroglob Ab <1.0 Normal 0.0-0.9 [facility] ([place]) Comment on above: Result Comment: Thyr oglobulin Antibody measured by [employer] It should be noted that the presence of thyroglobulin antibodies may not be pathogenic nor diagnostic, especially at very low levels. The assay inside trucker has found that four percent of individuals without evidence of thyroid disease or autoimmunity will have positive TgAb levels up to 4 IU/mL. Performed At: [facility] [id number] Artem Bustillos PhD Ph:[phone] Performed By: #### 0 [address] #### [address] [address] .Auto Diffon 04-03-2024 Basophil, Absolute 0.0 10 3/mcL Normal 0.0-0.3 [facility] ([place]) Comment on above: Performed By: #### F T3, THYAB, B12, FT4, GFR, CRP, CMP, CBC, TSH, ESR, ADIFF, ANEU, 805296, VIDH #### [address] [address] Basophils/100 WBC (Bld) 0.6 % Normal 0.0-2.5 [facility] ([place] Comment on above: Performed By: #### F T3, THYAB, B12, FT4, GFR, CRP, CMP, CBC, TSH, ESR, ADIFF, ANEU, 716567, VIDH #### [place] [id number] Eosinophil, Absolute 0.2 10 3/mcL Normal 0.0-0.7 [facility] ([place]) Comment on above: Performed By: #### F T3, THYAB, B12, FT4, GFR, CRP, CMP, CBC, TSH, ESR, ADIFF, ANEU, 048144, VIDH #### [address] [address] Eosinophils/100 WBC (Bld) 2.4 % Normal 0.0-6.0 [facility] ([place]) Comment on above: Performed By: #### F T3, THYAB, B12, FT4, GFR, CRP, CMP, CBC, TSH, ESR, ADIFF, ANEU, 005144, VIDH #### [address] [address] Lymphocyte, Absolute 1.1 10 3/mcL Normal 0.9-4.3 [facility] ([place]) Comment on above: Performed By: #### F T3, THYAB, B12, FT4, GFR, CRP, CMP, CBC, TSH, ESR, ADIFF, ANEU, 505750, VIDH #### [address] [address] Lymphocytes/100 WBC (Bld) 16.9 % Low 20.0-40.0 [facility] ([place]) Comment on above: Performed By: #### F T3, THYAB, B12, FT4, GFR, CRP, CMP, CBC, TSH, ESR, ADIFF, ANEU, 982652, VIDH #### [address] [address] Monocyte, Absolute 0.7 10 3/mcL Normal 0.1-1.4 [facility] ([place]) Comment on above: Performed By: #### F T3, THYAB, B12, FT4, GFR, CRP, CMP, CBC, TSH, ESR, ADIFF, ANEU, 173033, VIDH #### [address] [address] Monocytes/100 WBC (Bld) 11.5 % Normal 2.0-13.0 [facility] ([place] Comment on above: Performed By: #### F T3, THYAB, B12, FT4, GFR, CRP, CMP, CBC, TSH, ESR, ADIFF, ANEU, [id number], VIDH #### [address] [address] Neutrophils/100 WBC (Bld) 68.6 % Normal 50.0-75.0 [facility] ([place]) Comment on above: Performed By: #### F T3, THYAB, B12, FT4, GFR, CRP, CMP, CBC, TSH, ESR, ADIFF, ANEU, [id number], VIDH #### [address] [address] .GFRon 04-03-2024 GFR >60 Normal [facility] ([place]) Comment on above: Result Comment: GFR Population [...] CRP, CMP, CBC, TSH, ESR, ADIFF, ANEU, [id number], VIDH #### [address] [address] GFR Non- >60 Normal [facility] ([place]) Comment on above: Result Comment: GFR Population [...] CRP, CMP, CBC, TSH, ESR, ADIFF, ANEU, [id number], VIDH #### [address] [address] .NEUABSon 04-03-2024 Neutrophil, Absolute 4.4 10 3/mcL Normal 2.3-8.1 [facility] ([place]) Comment on above: Performed By: #### F T3, THYAB, B12, FT4, GFR, CRP, CMP, CBC, TSH, ESR, ADIFF, ANEU, 695653, VIDH #### [address] [address] B12on 04-03-2024 Cobalamin (Vitamin B12) [Mass/Vol] 491 pg/mL Normal 211-911 [facility] ([place]) Comment on above: Performed By: #### F T3, THYAB, B12, FT4, GFR, CRP, CMP, CBC, TSH, ESR, ADIFF, ANEU, 798262, VIDH #### [place] [address] CBCon 04-03-2024 Erythrocyte distribution width (RBC) [Ratio] 14.6 % Normal 11.5-15.5 [facility] ([place]) Comment on above: Performed By: #### F T3, THYAB, B12, FT4, GFR, CRP, CMP, CBC, TSH, ESR, ADIFF, ANEU, 822845, VIDH #### [place] [address] Hematocrit (Bld) [Volume fraction] 41.2 % Normal 40.0-52.0 [facility] ([place]) Comment on above: Performed By: #### F T3, THYAB, B12, FT4, GFR, CRP, CMP, CBC, TSH, ESR, ADIFF, ANEU, 818172, VIDH #### [place] [address] Hgb 13.5 G/dL Normal 13.0-17.5 [facility] ([place]) Comment on above: Performed By: #### F T3, THYAB, B12, FT4, GFR, CRP, CMP, CBC, TSH, ESR, ADIFF, ANEU, 577869, VIDH #### [place] [address] MCH (RBC) [Entitic mass] 29.0 pg Normal 27.0-33.0 [facility] ([place] Comment on above: Performed By: #### F T3, THYAB, B12, FT4, GFR, CRP, CMP, CBC, TSH, ESR, ADIFF, ANEU, 269153, VIDH #### [place] [address] MCHC 32.7 G/dL Normal 32.0-36.0 [facility] ([place]) Comment on above: Performed By: #### F T3, THYAB, B12, FT4, GFR, CRP, CMP, CBC, TSH, ESR, ADIFF, ANEU, [id number], VIDH #### [place] [id number] MCV (RBC) [Entitic vol] 88.8 fL Normal 81.0-100.0 [facility] [place] Comment on above: Performed By: #### F T3, THYAB, B12, FT4, GFR, CRP, CMP, CBC, TSH, ESR, ADIFF, ANEU, 052649, VIDH #### [place] [id number] Platelet 240 10 3/mcL Normal 150-450 [facility] ([place]) Comment on above: Performed By: #### F T3, THYAB, B12, FT4, GFR, CRP, CMP, CBC, TSH, ESR, ADIFF, ANEU, 251132, VIDH #### [place] [id number] Platelet mean volume (Bld) [Entitic vol] 8.3 fL Normal 6.4-10.5 [facility] ([place] Comment on above: Performed By: #### F T3, THYAB, B12, FT4, GFR, CRP, CMP, CBC, TSH, ESR, ADIFF, ANEU, 059389, VIDH #### [place] [id number] RBC 4.64 10 6/mcL Normal 4.50-6.00 [facility] ([place]) Comment on above: Performed By: #### F T3, THYAB, B12, FT4, GFR, CRP, CMP, CBC, TSH, ESR, ADIFF, ANEU, 701222, VIDH #### [place] [id number] WBC 6.4 10 3/mcL Normal 4.5-10.8 [facility] ([place]) Comment on above: Performed By: #### F T3, THYAB, B12, FT4, GFR, CRP, CMP, CBC, TSH, ESR, ADIFF, ANEU, 002868, VIDH #### [place] [id number] CMPon 04-03-2024 Albumin Level 3.7 G/dL Normal 3.2-4.8 [facility] ([place]) Comment on above: Performed By: #### F T3, THYAB, B12, FT4, GFR, CRP, CMP, CBC, TSH, ESR, ADIFF, ANEU, 046946, VIDH #### [address] [address] Albumin/Globulin [Mass ratio] 1.4 {ratio} Normal 0.9-1.6 [facility] ([place]) Comment on above: Performed By: #### F T3, THYAB, B12, FT4, GFR, CRP, CMP, CBC, TSH, ESR, ADIFF, ANEU, 620622, VIDH #### [address] [address] ALP [Catalytic activity/Vol] 105 U/L Normal 38-126 [facility] ([place]) Comment on above: Performed By: #### F T3, THYAB, B12, FT4, GFR, CRP, CMP, CBC, TSH, ESR, ADIFF, ANEU, 896594, VIDH #### [address] [address] ALT [Catalytic activity/Vol] 23 U/L Normal 12-55 [facility] ([place]) Comment on above: Performed By: #### F T3, THYAB, B12, FT4, GFR, CRP, CMP, CBC, TSH, ESR, ADIFF, ANEU, 115115, VIDH #### [address] [address] AST [Catalytic activity/Vol] 17 U/L Normal 8-34 [facility] ([place]) Comment on above: Performed By: #### F T3, THYAB, B12, FT4, GFR, CRP, CMP, CBC, TSH, ESR, ADIFF, ANEU, 922930, VIDH #### [address] [address] Bili Total 0.60 mg/dL Normal 0.20-1.20 [facility] ([place]) Comment on above: Result Comment: Use of this assay is not recommended for patients undergoing treatment with eltrombopag due to the potential for falsely elevated results. Performed By: #### F T3, THYAB, B12, FT4, GFR, CRP, CMP, CBC, TSH, ESR, ADIFF, ANEU, 738187, VIDH #### [address] [address] BUN/Creatinine Ratio 32.7 ratio High 10.0-22.0 [facility] ([place]) Comment on above: Performed By: #### F T3, THYAB, B12, FT4, GFR, CRP, CMP, CBC, TSH, ESR, ADIFF, ANEU, 020525, VIDH #### [address] [address] Calcium [Mass/Vol] 9.8 mg/dL Normal 8.7-10.4 [facility] ([place]) Comment on above: Performed By: #### F T3, THYAB, B12, FT4, GFR, CRP, CMP, CBC, TSH, ESR, ADIFF, ANEU, 751652, VIDH #### [address] [address] Chloride [Moles/Vol] 109 mmol/L Normal 98-110 [facility] ([place]) Comment on above: Performed By: #### F T3, THYAB, B12, FT4, GFR, CRP, CMP, CBC, TSH, ESR, ADIFF, ANEU, 764368, VIDH #### [address] [address] CO2 [Moles/Vol] 31 mmol/L Normal 22-32 [facility] ([place]) Comment on above: Performed By: #### F T3, THYAB, B12, FT4, GFR, CRP, CMP, CBC, TSH, ESR, ADIFF, ANEU, 764617, VIDH #### [address] [address] Creatinine [Mass/Vol] 1.07 mg/dL Normal 0.60-1.40 [facility] ([place]) Comment on above: Performed By: #### F T3, THYAB, B12, FT4, GFR, CRP, CMP, CBC, TSH, ESR, ADIFF, ANEU, 167736, VIDH #### [address] [address] Electrolyte Balance 3.0 mEq/L Low 4.0-15.0 [facility] ([place]) Comment on above: Performed By: #### F T3, THYAB, B12, FT4, GFR, CRP, CMP, CBC, TSH, ESR, ADIFF, ANEU, 310289, VIDH #### [address] [address] Globulin 2.6 G/dL Normal 1.5-3.8 [facility] ([place]) Comment on above: Performed By: #### F T3, THYAB, B12, FT4, GFR, CRP, CMP, CBC, TSH, ESR, ADIFF, ANEU, 777608, VIDH #### [address] [address] Glucose [Mass/Vol] 81 mg/dL Low 82-115 [facility] ([place]) Comment on above: Performed By: #### F T3, THYAB, B12, FT4, GFR, CRP, CMP, CBC, TSH, ESR, ADIFF, ANEU, 411492, VIDH #### [address] [address] Potassium [Moles/Vol] 4.6 mmol/L Normal 3.5-5.0 [facility] ([place]) Comment on above: Performed By: #### F T3, THYAB, B12, FT4, GFR, CRP, CMP, CBC, TSH, ESR, ADIFF, ANEU, 810389, VIDH #### [address] [address] Sodium [Moles/Vol] 143 mmol/L Normal 136-145 [facility] ([place]) Comment on above: Performed By: #### F T3, THYAB, B12, FT4, GFR, CRP, CMP, CBC, TSH, ESR, ADIFF, ANEU, 537650, VIDH #### [address] [address] Total Protein 6.3 G/dL Normal 5.7-8.2 [facility] ([place]) Comment on above: Result Comment: No te - New Reference Range in effect 20 Performed By: #### F T3, THYAB, B12, FT4, GFR, CRP, CMP, CBC, TSH, ESR, ADIFF, ANEU, 310367, VIDH #### [address] [address] Urea nitrogen [Mass/Vol] 35.0 mg/dL High 8.0-22.0 [facility] ([place]) Comment on above: Performed By: #### F T3, THYAB, B12, FT4, GFR, CRP, CMP, CBC, TSH, ESR, ADIFF, ANEU, 025227, VIDH #### [place] [id number] CRPon 04-03-2024 CRP [Mass/Vol] mg/L Normal 0.0-1.0 [facility] ([place]) Comment on above: Result Comment: No te - New Reference Range in effect 20 Performed By: #### F T3, THYAB, B12, FT4, GFR, CRP, CMP, CBC, TSH, ESR, ADIFF, ANEU, 186244, VIDH #### [place] [id number] ESRon 04-03-2024 Erythrocyte Sed Rate 16 mm/hr Normal 0-20 [facility] ([place]) Comment on above: Performed By: #### F T3, THYAB, B12, FT4, GFR, CRP, CMP, CBC, TSH, ESR, ADIFF, ANEU, 759598, VIDH #### [address] [address] FT3on 04-03-2024 Free T3 [Mass/Vol] 3.26 pg/mL Normal 2.30-4.20 [facility] ([place]) Comment on above: Performed By: #### F T3, THYAB, B12, FT4, GFR, CRP, CMP, CBC, TSH, ESR, ADIFF, ANEU, 529135, VIDH #### [place] [id number] FT4on 04-03-2024 Free T4 [Mass/Vol] 0.97 ng/dL Normal 0.89-1.76 [facility] ([place]) Comment on above: Result Comment: No te - New Reference Range in effect 20 Performed By: #### F T3, THYAB, B12, FT4, GFR, CRP, CMP, CBC, TSH, ESR, ADIFF, ANEU, 935025, VIDH #### [place] [id number] THYABon 04-03-2024 Thyroglobulin Ab See comment Normal 15-60 [facility] ([place]) Comment on above: Result Comment: Due to a lack of ATG reagent, testing will be sent out to [facility]. Note - New Reference Range in effect 20 Performed By: #### F T3, THYAB, B12, FT4, GFR, CRP, CMP, CBC, TSH, ESR, ADIFF, ANEU, [id number], VIDH #### [place] [address] anti-Thyroid Peroxidase 162 units/ml High 0-60 [facility] ([place]) Comment on above: Result Comment: No te - New Reference Range in effect 20 Performed By: #### F T3, THYAB, B12, FT4, GFR, CRP, CMP, CBC, TSH, ESR, ADIFF, ANEU, 608612, VIDH #### [place] [id number] TSHon 04-03-2024 TSH 0.040 mIU/mL Low 0.550-4.780 [facility] ([place]) Comment on above: Order Comment: DUE N OW Result Comment: No te - New Reference Range in effect 20 Performed By: #### F T3, THYAB, B12, FT4, GFR, CRP, CMP, CBC, TSH, ESR, ADIFF, ANEU, 990380, VIDH #### [place] [id number] VIDHon 04-03-2024 Vit. D 25-Hydroxy 33.0 ng/mL Normal [facility] ([place]) Comment on above: Result Comment: Inte rpretive Values Based on Total 25(OH)D: Severe Deficiency <20 ng/mL Mild to Moderate Deficiency 20-30 ng/mL Optimum Levels 30-100 ng/mL Toxicity Possible >100 ng/mL Performed By: #### F T3, THYAB, B12, FT4, GFR, CRP, CMP, CBC, TSH, ESR, ADIFF, ANEU, 236815, VIDH #### [facility] [address] [place] [address] Absolute lymphocyte countOrd ered By: Obinna Giovanny on 11-19-2023 Lymphocytes Auto (Unsp spec) [#/Vol] 1.61 10*3/uL 0.83-4.51 [facility] Automated lymphocyte count a s percentage of total leukocytesOrdered By: [facility] on 11-19-2023 Lymphocytes/100 WBC Auto (Unsp spec) 13.9 % 19-41 [facility] Basophil percentageOrdered B y: [facility] on 11-19-2023 Basophils/100 WBC (Bld) 0.4 % 0-1 [facility] Chloride [Moles/Vol] 107 mmol/L 98-107 [facility] Eosinophils/100 WBC (Bld) 1.6 % 0-5 [facility] Glucose [Mass/Vol] 105 mg/dL 74-106 [facility] Comment on above: Fasting Glucose resu lt from 100 to 125 mg/dL suggests IMPAIRED HOMEOSTASIS per A.D.A. criteria. Hemoglobin (Bld) [Mass/Vol] 14.1 g/dL 13.0-16.5 [facility] Monocytes/100 WBC (Bld) 7.8 % 0-10 [facility] Neutrophils (Bld) [#/Vol] 8.7 10*3/uL 2.0-7.7 [facility] Neutrophils/100 WBC (Bld) 74.9 % 47-70 [facility] Potassium [Moles/Vol] 4.1 mmol/L 3.5-5.1 [facility] Comment on above: Slight Hemolysis, Re sult may be falsely increased. Sodium [Moles/Vol] 143 mmol/L 136-145 [facility] WBC (Bld) [#/Vol] 11.6 10*3/uL 4.4-11.0 [facility] [place] Determination of erythrocyte mean corpuscular volume (MCV)Ordered By: [facility] on 11-19-2023 MCV (RBC) [Entitic vol] 89.0 fL 80-94 [facility] Erythrocyte distribution wid th ratioOrdered By: [facility] on 11-19-2023 Erythrocyte distribution width (RBC) [Ratio] 13.9 % 11.6-14.6 [facility] Erythrocyte distribution wid th standard deviationOrdered By: [facility] on 11-19-2023 Erythrocyte distribution width (RBC) [Entitic vol] 44.7 fL 35.1-43.9 [facility] Hematocrit Auto (Bld) [Volum e fraction]Ordered By: [facility] on 11-19-2023 Hematocrit (Bld) [Volume fraction] 44.4 % 40-54 [facility] Immature granulocytes/100 WB C Auto (Bld)Ordered By: [facility] on 11-19-2023 Immature granulocytes/100 WBC (Bld) 1.400 % 0.0-0.9 [facility] Comment on above: IG% - Immature Granu locytes (promyelocytes, myelocytes and metamyelocytes) > 1% indicates that a LEFT SHIFT is Present. Laboratory - Chemistry and C hemistry - challengeOrdered By: [facility] on 11-19-2023 CO2 [Moles/Vol] 31.0 mmol/L 21.0-32.0 [facility] Urea nitrogen/Creatinine [Mass ratio] 30.8 mg/mg 10-20 [facility] Laboratory - Hematology and Cell countsOrdered By: [facility] on 11-19-2023 MCH (RBC) [Entitic mass] 28.3 pg 27.0-32.0 [facility] MCHC (RBC) [Mass/Vol] 31.8 g/dL 32-36 [facility] Nucleated RBC/100 WBC (Bld) [Ratio] 0 % 0-5 [facility] Platelet mean volume (Bld) [Entitic vol] 9.5 fL 6.2-12.0 [facility] Platelets (Bld) [#/Vol] 286 10*3/uL 150-450 [facility] No Panel InformationOrdered By: Obinna Giovanny on 11-19-2023 Estimated GFR (MDRD) Amer 88 mL/min >60 [facility] Comment on above: GFR Calc Estimated GFR (MDRD) Non-Af Amer 73 mL/min >60 [facility] Comment on above: Non- GFR Calc RBC Auto (Bld) [#/Vol]Ordere d By: [place] [facility] on 11-19-2023 RBC (Bld) [#/Vol] 4.99 10*6/uL 4.6-6.2 [facility] [place] Serum or plasma calcium andrez urement (mass/volume)Ordered By: Obinna Baltazar on 11-19-2023 Calcium [Mass/Vol] 9.0 mg/dL 8.5-10.1 [facility] Serum or plasma creatinine m easurement (mass/volume)Ordered By: Obinna Baltazar on 11-19-2023 Creatinine [Mass/Vol] 1.04 mg/dL 0.70-1.30 [facility] Comment on above: The validity of the calculated GFR & GFRAA in patients over 70 years has not been determined. Clinical correlation is essential. Serum or plasma urea nitroge n measurement (mass/volume)Ordered By: Obinna Baltazar on 11-19-2023 Urea nitrogen [Mass/Vol] 32 mg/dL 7-18 [facility] Thin prep Papanicolaou smear with manual screeningOrdered By: Obinna Giovanny on 11-19-2023 Thin prep Papanicolaou smear with manual screening 5 5-15 [facility] LUC GANNON ([id number]) 1940 M Date Time Provider Department 09/04/23 JAYLAN TODD [facility] During your visit today, we recorded [...] Date Reviewed: 09/03/2023 Reviewed by: Alexander Will APRN.PHYSICIAN CODING SPECIALIST - Fully Assessed Reason for Visit: Results [...] Encounter Status:Closed by JENNIFER PERDOMO on 09/05/23 [facility] CNOVon 09-03-2023 CNOV Office Visit ([facility] ) LUC GANNON ([id number]) 1940 M Date Time Provider Department 09/03/23 12:00 PM ALEXANDER WILL K[facility]TR During your visit today, we recorded the following information about you: Temperature Pulse Respiration Blood pressure 98 degrees 77/minute 20/minute 124/71 Weight 122 kg Alexander Will APRN.PHYSICIAN CODING SPECIALIST 09/03/2023 12:15 PM Signed Subjective HPI Nontoxic-appearing male presents to urgent care with chief complaint of fever and cough. Duration of symptoms 3 days. Associated symptoms with today's chief complaint are on and off headache, muscle aches, fatigue, nausea, sore throat, nonproductive cough, and fever. Patient stated symptoms started abruptly. Patient states they have used [id number] medication with some success. Temp today of [...] patient's clini (more content not included)... Normal [facility] COVID AND INFLUENZA A/B AND RSV NAAT, ROUTINEon 09-03-2023 SARS-CoV-2 (COVID-19) RNA ZOYA+probe Ql (Unsp spec) COVID 19 RESULT: Not detected The method used is RT-PCR or an equivalent NAAT method. Reference Range (the expected result in uninfected individuals): Not detected INFLUENZA A PCR: Detected INFLUENZA B PCR: Not detected RSV PCR: Not detected Abnormal [facility] Comment on above: Performed By: #### C VFLRS #### [facility] CLIA [id number] [address] [place] [address] [place] Basophil percentageOrdered B y: Mary Abernathy on 04-27-2023 Bilirubin [Mass/Vol] 0.60 mg/dL 0.20-1.00 [facility] Comment on above: For patients on eltr ombopag therapy, use of Dimension Mccloud TBIL is not recommended. Chloride [Moles/Vol] 106 mmol/L 98-107 [facility] Cholesterol [Mass/Vol] 213 mg/dL <200 [facility] Comment on above: <200 mg/dL Desirable 200-240 mg/dL Borderline >240 mg/dL High Risk Glucose [Mass/Vol] 115 mg/dL 74-106 [facility] Comment on above: Fasting Glucose resu lt from 100 to 125 mg/dL suggests IMPAIRED HOMEOSTASIS per A.D.A. criteria. Potassium [Moles/Vol] 4.3 mmol/L 3.5-5.1 [facility] Protein [Mass/Vol] 7.3 g/dL 6.4-8.2 [facility] Sodium [Moles/Vol] 138 mmol/L 136-145 [facility] Triglyceride [Mass/Vol] 148 mg/dL <199 [facility] Comment on above: The drugs N-Acetylcy steine and Metamizole may falsely depress this assay.Serum Triglycerides Reference Interval Normal <150 mg/dL Borderline high 150 - 199 mg/dL High 200 - 499 mg/dL Very High > or = 500 mg/dL Direct bilirubinOrdered By: Mary Abernathy on 04-27-2023 Bilirubin.direct [Mass/Vol] 0.13 mg/dL 0.00-0.30 [facility] Laboratory - Chemistry and C hemistry - challengeOrdered By: Mary Abernathy on 04-27-2023 ALP [Catalytic activity/Vol] 69 U/L 45-117 [facility] ALT [Catalytic activity/Vol] 24 U/L 16-61 [facility] CO2 [Moles/Vol] 27.0 mmol/L 21.0-32.0 [facility] Globulin (S) [Mass/Vol] 3.5 g/dL 2.2-4.2 [facility] Urea nitrogen/Creatinine [Mass ratio] 28.3 mg/mg 10-20 [facility] No Panel InformationOrdered By: Mary Abernathy on 04-27-2023 Estimated GFR (MDRD) Amer 97 mL/min >60 [facility] Comment on above: GFR Calc Estimated GFR (MDRD) Non-Af Amer 80 mL/min >60 [facility] Comment on above: Non- GFR Calc Urine Microalbumin/Creatinine Ratio 16.1 mg/g CRE <30 [facility] Serum or plasma albumin andrez urement (mass/volume)Ordered By: Mary Abernathy on 04-27-2023 Albumin [Mass/Vol] 3.8 g/dL 3.2-5.0 [facility] Serum or plasma calcium andrez urement (mass/volume)Ordered By: Mary Abernathy on 04-27-2023 Calcium [Mass/Vol] 9.0 mg/dL 8.5-10.1 [facility] Serum or plasma cholesterol in HDL measurement (mass/volume)Ordered By: Mary Abernathy on 04-27-2023 Cholesterol in HDL [Mass/Vol] 45 mg/dL >40 [facility] Comment on above: The drugs N-Acetylcy steine and Metamizole may falsely depress this assay. Reference Range HDL <40 mg/dL Low HDL Cholesterol HDL >or= 60 mg/dL High HDL Cholesterol Serum or plasma cholesterol in VLDL measurement (mass/volume)Ordered By: Mary Abernathy on 04-27-2023 Cholesterol in VLDL [Mass/Vol] 30 mg/dL 5-40 [facility] Serum or plasma creatinine m easurement (mass/volume)Ordered By: Mary Abernathy on 04-27-2023 Creatinine [Mass/Vol] 0.95 mg/dL 0.70-1.30 [facility] Comment on above: The validity of the calculated GFR & GFRAA in patients over 70 years has not been determined. Clinical correlation is essential. Serum or plasma low density lipoprotein (LDL) cholesterol measurement (mass/volume)Ordered By: Mary Abernathy on 04-27-2023 Cholesterol in LDL [Mass/Vol] 138 mg/dL 0-130 [facility] Serum or plasma urea nitroge n measurement (mass/volume)Ordered By: Mary Abernathy on 04-27-2023 Urea nitrogen [Mass/Vol] 27 mg/dL 7-18 [facility] Thin prep Papanicolaou smear with manual screeningOrdered By: Mary Abernathy on 04-27-2023 Thin prep Papanicolaou smear with manual screening 16 U/L 15-37 [facility] Thin prep Papanicolaou smear with manual screening 5 5-15 [facility] Thin prep Papanicolaou smear with manual screening 16.9 mg/L NO RANGE EST. [facility] Urine creatinine measurement (mass/volume)Ordered By: Mary Abernathy on 04-27-2023 Creatinine (U) [Mass/Vol] 105.00 mg/dL NO RANGE EST. [facility] Whole blood hemoglobin A1c/t otal hemoglobin ratio (mass fraction)Ordered By: Mary Abernathy on 04-09-2023 HbA1c (Bld) [Mass fraction] 6.2 % 3.8-5.6 [facility] Comment on above: Normal < 5.7 % Predi abetic 5.7 - 6.4 % Diabetic >or= 6.5 % Please note range changes. Absolute lymphocyte counton 07-07-2022 Lymphocytes Auto (Unsp spec) [#/Vol] 1.23 10*3/uL 0.83-4.51 [facility] Work Phone: Albumin Elph [Mass/Vol]on Albumin [Mass/Vol] 4.0 g/dL 2.9-4.4 [facility] Work Phone: Basophil percentageon 2021 Basophil percentage 3.3 mg/dL 2.5-4.9 [facility] [place] Work Phone: Basophils/100 WBC (Bld) 0.4 % 0-1 [facility] Work Phone: Bilirubin [Mass/Vol] 0.50 mg/dL 0.20-1.00 [facility] Work Phone: Comment on above: For patients on eltr ombopag therapy, use of Dimension Mccloud TBIL is not recommended. Chloride [Moles/Vol] 107 mmol/L 98-107 [facility] Work Phone: Eosinophils/100 WBC (Bld) 2.3 % 0-5 [facility] Work Phone: Glucose [Mass/Vol] 111 mg/dL 74-106 [facility] Work Phone: Comment on above: Fasting Glucose resu lt from 100 to 125 mg/dL suggests IMPAIRED HOMEOSTASIS per A.D.A. criteria. Neutrophils (Bld) [#/Vol] 5.3 10*3/uL 2.0-7.7 [facility] Work Phone: Neutrophils/100 WBC (Bld) 71.6 % 47-70 [facility] Work Phone: Potassium [Moles/Vol] 3.9 mmol/L 3.5-5.1 [facility] Work Phone: Protein [Mass/Vol] 7.0 g/dL 6.4-8.2 [facility] Work Phone: Sodium [Moles/Vol] 142 mmol/L 136-145 [facility] Work Phone: WBC (Bld) [#/Vol] 7.4 10*3/uL 4.4-11.0 [facility] Work Phone: Blood erythrocytes count (nu mber/volume)on 07-07-2022 RBC (Bld) [#/Vol] 4.87 10*6/uL 4.6-6.2 [facility] [place] Work Phone: Blood hemoglobin measurement (mass/volume)on 07-07-2022 Hemoglobin (Bld) [Mass/Vol] 14.2 g/dL 13.0-16.5 [facility] Work Phone: Blood lymphocytes/100 leukoc yteson 07-07-2022 Lymphocytes/100 WBC (Bld) 16.7 % 19-41 [facility] Work Phone: Blood monocytes/100 leukocyt eson 07-07-2022 Monocytes/100 WBC (Bld) 8.7 % 0-10 [facility] Work Phone: Blood platelet mean volumeon 07-07-2022 Platelet mean volume (Bld) [Entitic vol] 9.3 fL 6.2-12.0 [facility] Work Phone: Determination of erythrocyte mean corpuscular volume (MCV)on 07-07-2022 MCV (RBC) [Entitic vol] 88.7 fL 80-94 [facility] Work Phone: Erythrocyte sedimentation ra megan 07-07-2022 ESR (Bld) [Velocity] 15 mm/h 0-20 [facility] Work Phone: Hematocrit Auto (Bld) [Volum e fraction]on 07-07-2022 Hematocrit (Bld) [Volume fraction] 43.2 % 40-54 [facility] Work Phone: [phone] Hemoglobin in reticulocytes (mass per reticulocyte)on 07-07-2022 Hemoglobin (Reticulocytes) [Entitic mass] 32.9 pg 30-35 [facility] Work Phone: Interpretation of serum or p lasma protein pattern by immunofixation (narrative resulton 07-07-2022 Protein Fractions Immunofixation Manuel [Interp] See comment [facility] Work Phone: Comment on above: Result: Not Observed Laboratory - Chemistry and C hemistry - challengeon 07-07-2022 ALP [Catalytic activity/Vol] 84 U/L 45-117 [facility] Work Phone: ALT [Catalytic activity/Vol] 29 U/L 16-61 [facility] Work Phone: CO2 [Moles/Vol] 30.0 mmol/L 21.0-32.0 [facility] Work Phone: Cobalamin (Vitamin B12) [Mass/Vol] 435 pg/mL 211-911 [facility] Work Phone: [phone] Magnesium [Mass/Vol] 2.4 mg/dL 1.6-2.6 [facility] Work Phone: Urea nitrogen/Creatinine [Mass ratio] 22.5 mg/mg 10-20 [facility] Work Phone: [phone] Laboratory - Hematology and Cell countson 07-07-2022 Erythrocyte distribution width (RBC) [Entitic vol] 43.1 fL 35.1-43.9 [facility] Work Phone: [phone] Erythrocyte distribution width (RBC) [Ratio] 13.3 % 11.6-14.6 [facility] Work Phone: [phone] Immature granulocytes/100 WBC (Bld) 0.300 % 0.0-0.9 [facility] Work Phone: [phone] Comment on above: IG% - Immature Granu locytes (promyelocytes, myelocytes and metamyelocytes) > 1% indicates that a LEFT SHIFT is Present. MCH (RBC) [Entitic mass] 29.2 pg 27.0-32.0 [facility] Work Phone: [phone] Nucleated RBC/100 WBC (Bld) [Ratio] 0 % 0-5 [facility] Work Phone: [phone] MCHC Auto (RBC) [Mass/Vol]on 07-07-2022 MCHC (RBC) [Mass/Vol] 32.9 g/dL 32-36 [facility] Work Phone: [phone] Panel Informationon 07-07 Addendum Document Comment . [facility] Work Phone: [phone] Comment on above: Protein electrophore sis scan will follow via computer,mail, or electro optics engineer delivery. Estimated GFR (MDRD) Amer 82 mL/min >60 [facility] Work Phone: [phone] Comment on above: GFR Calc Estimated GFR (MDRD) Non-Af Amer 68 mL/min >60 [facility] Work Phone: [phone] Comment on above: Non- GFR Calc Free Lambda Light Chains, Quant 14.4 mg/L 5.7-26.3 [facility] Work Phone: [phone] Immature Reticulocyte Fraction 5.00 % 3.00-15.90 [facility] Work Phone: [phone] Reticulocyte Count 0.96 % 0.5-1.5 [facility] Work Phone: [phone] Platelets bldon 07-07-2022 Platelets (Bld) [#/Vol] 207 10*3/uL 150-450 [facility] Work Phone: [phone] Serum idpak-0-ydsvdjfe measu rement by electrophoresison 07-07-2022 Alpha 1 globulin Elph [Mass/Vol] 0.3 g/dL 0.0-0.4 [facility] Work Phone: [phone] Alpha 1 globulin Elph [Mass/Vol] 0.7 g/dL 0.4-1.0 [facility] Work Phone: [phone] Serum globulin measurement ( mass/volume)on 07-07-2022 Globulin (S) [Mass/Vol] 2.7 g/dL 2.2-3.9 [facility] Work Phone: [phone] Serum immunoglobulin kappa l ight chains/immunoglobulin lambda light chains mass ratioon 07-07-2022 Immunoglobulin light chains.kappa/Immunoglobu kameron light chains.lambda (S) [Mass ratio] 1.86 0.26-1.65 [facility] Work Phone: [phone] Comment on above: Performed at: [address] [id number] Director: Apollo Mcgill PhD, Phone: [phone] Serum or plasma IgA measurem ent (mass/volume)on 07-07-2022 IgA [Mass/Vol] 105 mg/dL 61-437 [facility] Work Phone: [phone] Serum or plasma IgG measurem ent (mass/volume)on 07-07-2022 IgG [Mass/Vol] 823 mg/dL [phone] [facility] Work Phone: [phone] Serum or plasma IgM measurem ent (mass/volume)on 07-07-2022 IgM [Mass/Vol] 142 mg/dL 15-143 [facility] Work Phone: [phone] Serum or plasma albumin andrez urement (mass/volume)on 07-07-2022 Albumin [Mass/Vol] 3.6 g/dL 3.2-5.0 [facility] Work Phone: Serum or plasma albumin/glob ulin mass ratioon 07-07-2022 Albumin/Globulin [Mass ratio] 1.1 {ratio} 0.9-2.4 [facility] Work Phone: Serum or plasma beta globuli n measurement by electrophoresis (mass/volume)on 07-07-2022 Beta globulin Elph [Mass/Vol] 0.9 g/dL 0.7-1.3 [facility] Work Phone: Serum or plasma calcium anderz urement (mass/volume)on 07-07-2022 Calcium [Mass/Vol] 8.8 mg/dL 8.5-10.1 [facility] Work Phone: Serum or plasma creatinine m easurement (mass/volume)on 07-07-2022 Creatinine [Mass/Vol] 1.11 mg/dL 0.70-1.30 [facility] Work Phone: Comment on above: The validity of the calculated GFR & GFRAA in patients over 70 years has not been determined. Clinical correlation is essential. Serum or plasma ferritin stella surement (mass/volume)on 07-07-2022 Ferritin [Mass/Vol] 195 ng/mL 26-388 [facility] Work Phone: Serum or plasma folate measu rement (mass/volume)on 07-07-2022 Folate [Mass/Vol] 19.40 ng/mL 3.1-55.4 [facility] Work Phone: Serum or plasma gamma globul in measurement by electrophoresis (mass/volume)on 07-07-2022 Gamma globulin Elph [Mass/Vol] 0.8 g/dL 0.4-1.8 [facility] Work Phone: Serum or plasma immunoelectr ophoresis interpretation (nominal result)on 07-07-2022 Interpretation IEP [Interp] Comment: . [facility] Work Phone: Comment on above: Presence of monoclon al protein is unclear at this time. Suggestrepeat in 3 to 6 months if clinically indicated. Serum or plasma immunoglobul in kappa light chains measurement (mass/volume)on 07-07-2022 Immunoglobulin light chains.kappa [Mass/Vol] 26.8 mg/L 3.3-19.4 [facility] Work Phone: Serum or plasma urea nitroge n measurement (mass/volume)on 07-07-2022 Urea nitrogen [Mass/Vol] 25 mg/dL 7-18 [facility] Work Phone: Thin prep Papanicolaou smear with manual screeningon 07-07-2022 Thin prep Papanicolaou smear with manual screening 20 U/L 15-37 [facility] Work Phone: Thin prep Papanicolaou smear with manual screening 5 5-15 [facility] Work Phone: Thin prep Papanicolaou smear with manual screening 197 U/L 87-241 [facility] Work Phone: Thin prep Papanicolaou smear with manual screening 1.5 0.7-1.7 [facility] Work Phone: Total protein bloodon 2021 Protein [Mass/Vol] 6.7 g/dL 6.0-8.5 [facility] Work Phone: Basophil percentageon 2021 Chloride [Moles/Vol] 106 mmol/L 98-107 [facility] Work Phone: Glucose [Mass/Vol] 105 mg/dL 74-106 [facility] Work Phone: Comment on above: Fasting Glucose resu lt from 100 to 125 mg/dL suggests IMPAIRED HOMEOSTASIS per A.D.A. criteria. Potassium [Moles/Vol] 3.9 mmol/L 3.5-5.1 [facility] Work Phone: Sodium [Moles/Vol] 141 mmol/L 136-145 [facility] Work Phone: Laboratory - Chemistry and C hemistry - challengeon 09-28-2022 CO2 [Moles/Vol] 30.0 mmol/L 21.0-32.0 [facility] Work Phone: Natriuretic peptide B (Bld) [Mass/Vol] 447.4 pg/mL 0-100 [facility] Work Phone: Urea nitrogen/Creatinine [Mass ratio] 21.3 mg/mg 10-20 [facility] Work Phone: No Panel Informationon 05-20 Estimated GFR (MDRD) Amer 105 mL/min >60 [facility] Work Phone: Comment on above: GFR Calc Estimated GFR (MDRD) Non-Af Amer 87 mL/min >60 [facility] Work Phone: Comment on above: Non- GFR Calc Serum or plasma calcium andrez urement (mass/volume)on 05-20-2022 Calcium [Mass/Vol] 9.1 mg/dL 8.5-10.1 [facility] Work Phone: Serum or plasma creatinine m easurement (mass/volume)on 05-20-2022 Creatinine [Mass/Vol] 0.89 mg/dL 0.70-1.30 [facility] Work Phone: Comment on above: The validity of the calculated GFR & GFRAA in patients over 70 years has not been determined. Clinical correlation is essential. Serum or plasma urea nitroge n measurement (mass/volume)on 05-20-2022 Urea nitrogen [Mass/Vol] 19 mg/dL 7-18 [facility] Work Phone: [phone] Thin prep Papanicolaou smear with manual screeningon 05-20-2022 Thin prep Papanicolaou smear with manual screening 5 5-15 [facility] Work Phone: [phone] Basophil percentageon 2021 Basophil percentage 0 SEEN /hpf [facility] Work Phone: [phone] Bilirubin Test strip Ql (U)o n 12-19-2021 Bilirubin Ql (U) Negative Negative [facility] Work Phone: [phone] Ketones Test strip Ql (U)on 12-19-2021 Ketones Ql (U) Negative Negative [facility] Work Phone: Mucus LM Ql (Urine sed)on Mucus Ql (Urine sed) 0 SEEN /hpf [facility] Work Phone: Nitrite Test strip Ql (U)on 12-19-2021 Nitrite Ql (U) Negative Negative [facility] Work Phone: No Panel Informationon 12-19 Stool Calprotectin 23 ug/g [facility] Work Phone: Comment on above: Concentration Interp retation Follow-Up<16 - 50 ug/g Normal None>50 -120 ug/g Borderline Re-evaluate in 4-6 weeks >120 ug/g Abnormal Repeat as clinically indicatedPerformed at: - [facility] [address] [id number] Director: Maddie Davis MD, Phone: [phone] Protein Test strip Ql (U)on 12-19-2021 Protein Ql (U) 30 mg/dl Negative [facility] Work Phone: Squamous epithelial cells de tection in urine sediment by light microscopyon 12-19-2021 Epithelial cells.squamous LM Ql (Urine sed) 0 SEEN /hpf [facility] Work Phone: Urine blood detectionon 11-22 RBC Ql (U) 10 /ul Negative [facility] Work Phone: RBC Ql (U) 0-5 SEEN /hpf [facility] Work Phone: Urine clarityon 12-19-2021 Clarity (U) Clear Clear [facility] Work Phone: Urine color determinationon 12-19-2021 Color (U) Yellow Yellow [facility] Work Phone: Urine glucose detectionon Glucose Ql (U) Normal mg/dl Normal [facility] Work Phone: Urine leukocyte esterase det ection by dipstickon 12-19-2021 Leukocyte esterase Test strip Ql (U) Negative Negative [facility] Work Phone: Urine pHon 12-19-2021 pH (U) 5.0 [pH] [facility] Work Phone: Urine sediment bacteria coun t by microscopy (number/high power field)on 12-19-2021 Bacteria LM.HPF (Urine sed) [#/Area] 0 /[HPF] None Seen [facility] Work Phone: Urine specific gravity measu rementon 12-19-2021 Specific gravity (U) [Rel density] 1.025 [facility] Work Phone: [phone] Urobilinogen Auto test strip Ql (U)on 12-19-2021 Urobilinogen Ql (U) Normal mg/dl Normal [facility] Work Phone: Absolute lymphocyte counton 12-15-2021 Lymphocytes Auto (Unsp spec) [#/Vol] 0.92 10*3/uL 0.83-4.51 [facility] Work Phone: Albumin Elph [Mass/Vol]on Albumin [Mass/Vol] 3.6 g/dL [facility] Work Phone: Atypical perinuclear antineu trophil cytoplasmic antibodies measurementon 12-15-2021 Neutrophil cytoplasmic Ab.perinuclear.atypical IF (S) [Titer] 1:640 titer Neg:<1:20 [facility] Work Phone: Comment on above: The atypical pANCA p attern has been observed in asignificant percentage of patients with ulcerative colitis,primary sclerosing cholangitis and autoimmune hepatitis.Performed at: [facility] [address] [id number] Director: Apollo Mcgill PhD, Phone: [phone] at: [facility] [address] [id number] Director: Maddie Davis MD, Phone: [phone] Basophil percentageon 2021 Basophil percentage < 0.2 [facility] Work Phone: Basophils/100 WBC (Bld) 0.5 % 0-1 [facility] Work Phone: Bilirubin [Mass/Vol] 0.70 mg/dL 0.20-1.00 [facility] Work Phone: Comment on above: For patients on eltr ombopag therapy, use of Dimension Mccloud TBIL is not recommended. Chloride [Moles/Vol] 108 mmol/L 98-107 [facility] Work Phone: Eosinophils/100 WBC (Bld) 2.1 % 0-5 [facility] Work Phone: Glucose [Mass/Vol] 112 mg/dL 74-106 [facility] Work Phone: Comment on above: Fasting Glucose resu lt from 100 to 125 mg/dL suggests IMPAIRED HOMEOSTASIS per A.D.A. criteria. Neutrophils (Bld) [#/Vol] 6.9 10*3/uL 2.0-7.7 [facility] Work Phone: Neutrophils/100 WBC (Bld) 79.9 % 47-70 [facility] Work Phone: Potassium [Moles/Vol] 3.9 mmol/L 3.5-5.1 [facility] Work Phone: Protein [Mass/Vol] 7.2 g/dL 6.4-8.2 [facility] Work Phone: Sodium [Moles/Vol] 141 mmol/L 136-145 [facility] Work Phone: WBC (Bld) [#/Vol] 8.7 10*3/uL 4.4-11.0 [facility] Work Phone: Blood erythrocytes count (nu mber/volume)on 12-15-2021 RBC (Bld) [#/Vol] 5.32 10*6/uL 4.6-6.2 [facility] Work Phone: Blood hemoglobin measurement (mass/volume)on 12-15-2021 Hemoglobin (Bld) [Mass/Vol] 15.1 g/dL 13.0-16.5 [facility] Work Phone: [phone] Blood lymphocytes/100 leukoc yteson 12-15-2021 Lymphocytes/100 WBC (Bld) 10.6 % 19-41 [facility] Work Phone: [phone] Blood monocytes/100 leukocyt eson 12-15-2021 Monocytes/100 WBC (Bld) 6.2 % 0-10 [facility] Work Phone: [phone] Blood platelet mean volumeon 12-15-2021 Platelet mean volume (Bld) [Entitic vol] 9.4 fL 6.2-12.0 [facility] Work Phone: [phone] Determination of erythrocyte mean corpuscular volume (MCV)on 12-15-2021 MCV (RBC) [Entitic vol] 88.2 fL 80-94 [facility] Work Phone: [phone] Erythrocyte sedimentation ra megan 12-15-2021 ESR (Bld) [Velocity] 29 mm/h 0-20 [facility] Work Phone: [phone] Hematocrit Auto (Bld) [Volum e fraction]on 12-15-2021 Hematocrit (Bld) [Volume fraction] 46.9 % 40-54 [facility] Work Phone: [phone] Interpretation of serum or p lasma protein pattern by immunofixation (narrative resulton 12-15-2021 Protein Fractions Immunofixation Manuel [Interp] See comment [facility] Work Phone: [phone] Comment on above: Due to the small adeola ntity of monoclonal protein, unable toquantitate the M-spike. Laboratory - Chemistry and C hemistry - challengeon 12-15-2021 ALP [Catalytic activity/Vol] 79 U/L 45-117 [facility] Work Phone: [phone] ALT [Catalytic activity/Vol] 29 U/L 16-61 [facility] Work Phone: [phone] CO2 [Moles/Vol] 29.0 mmol/L 21.0-32.0 [facility] Work Phone: [phone] Globulin (S) [Mass/Vol] 3.5 g/dL 2.2-4.2 [facility] Work Phone: [phone] Urea nitrogen/Creatinine [Mass ratio] 18.5 mg/mg 10-20 [facility] Work Phone: [phone] Laboratory - Hematology and Cell countson 12-15-2021 Erythrocyte distribution width (RBC) [Entitic vol] 42.9 fL 35.1-43.9 [facility] Work Phone: [phone] Erythrocyte distribution width (RBC) [Ratio] 13.2 % 11.6-14.6 [facility] Work Phone: [phone] Immature granulocytes/100 WBC (Bld) 0.700 % 0.0-0.9 [facility] Work Phone: [phone] Comment on above: IG% - Immature Granu locytes (promyelocytes, myelocytes and metamyelocytes) > 1% indicates that a LEFT SHIFT is Present. MCH (RBC) [Entitic mass] 28.4 pg 27.0-32.0 [facility] Work Phone: [phone] Nucleated RBC/100 WBC (Bld) [Ratio] 0 % 0-5 [facility] Work Phone: [phone] MCHC Auto (RBC) [Mass/Vol]on 12-15-2021 MCHC (RBC) [Mass/Vol] 32.2 g/dL 32-36 [facility] Work Phone: No Panel Informationon 12-15 Addendum Document Comment [facility] Work Phone: [phone] Comment on above: Protein electrophore sis scan will follow via computer,mail, or electro optics engineer delivery. Centromere B Antibody <0.2 AI [facility] Work Phone: [phone] Endomysial IgA Antibody Negative Negative [facility] Work Phone: [phone] Estimated GFR (MDRD) Amer 95 mL/min >60 [facility] Work Phone: [phone] Comment on above: GFR Calc Estimated GFR (MDRD) Non-Af Amer 79 mL/min >60 [facility] Work Phone: Comment on above: Non- GFR Calc Immunoglobulin E 54 IU/mL [facility] Work Phone: Miscellaneous Test See comment [facility] Work Phone: Comment on above: TESTING PERFORMED AT [facility]. ORIGINAL REPORT ON FILE IN LAB CONTAINS ADDITIONAL TEST SITE INFORMATION. TEST RESULT [facility]'s IBDX Prognostic PanelgASCA 47 units 0-50 Negative [...] [id number]. Elina M. et al. Gut. 2007; 56:[id number]. Tyrone M. et al. Am J Gastroenterology. 2007; 102:1-174. Tamar Sharif. et al. World J Gastroenterology. 2008; 14:3952-7572This test was developed and its performance characteristics determined by [facility]. It has not been cleared or approved by the Food and Drug Administration. The FDA has determined that such clearance or approval is not necessary. Prostate Specific Antigen Total 2.84 ng/mL 0.0-4.0 [facility] Work Phone: Comment on above: This test was perfor med using the TPSA assay method for [facility] chemistry system. Values obtained with differentassay methods cannot be used interchangably.When changing PSA assays in the course of monitoring apatient, additional sequential testing should be carriedout to confirm baseline values. HARD TILE SETTER Antibody <0.2 [facility] Work Phone: [phone] Platelets bldon 12-15-2021 Platelets (Bld) [#/Vol] 250 10*3/uL 150-450 [facility] Work Phone: [phone] Serum DNA double strand anti body assay (units/volume)on 12-15-2021 DNA double strand Ab Qn (S) [IU]/mL [facility] Work Phone: Comment on above: Negative <5 Equivoca l 5 - 9 Positive >9 Serum Neha-1 antibody assay (u nits/volume)on 12-15-2021 Neha-1 extractable nuclear Ab Qn (S) <0.2 [facility] Work Phone: [phone] Serum Scl-70 extractable nuc lear antibody assay (units/volume)on 12-15-2021 SCL-70 extractable nuclear Ab Qn (S) <0.2 [facility] Work Phone: [phone] Balderrama extractable nucl ear antibody detectionon 12-15-2021 Balderrama extractable nuclear Ab Ql (S) <0.2 [facility] Work Phone: [phone] Serum vqvhg-1-curaswzs measu rement by electrophoresison 12-15-2021 Alpha 1 globulin Elph [Mass/Vol] 0.3 g/dL [facility] Work Phone: [phone] 1 globulin Elph [Mass/Vol] 0.8 g/dL [facility] Work Phone: [phone] Serum classic neutrophil cyt oplasmic antibody assay (units/volume)on 12-15-2021 Neutrophil cytoplasmic Ab.classic Qn (S) <1:20 titer Neg:<1:20 [facility] Work Phone: [phone] Serum globulin measurement ( mass/volume)on 12-15-2021 Globulin (S) [Mass/Vol] 2.9 g/dL [facility] Work Phone: [phone] Serum or plasma C reactive p rotein measurement (mass/volume)on 12-15-2021 CRP [Mass/Vol] 4.62 mg/L 0.0-3.0 [facility] Work Phone: [phone] Comment on above: C-Reactive Protein ( CRP) provides useful information for thediagnosis, therapy and monitoring of inflammatory processesand associated diseases. For the evaluation of Relative Riskfor Cardiovascular Disease, a High Sensitivity CRP (HSCRP)should be ordered. Serum or plasma IgA measurem ent (mass/volume)on 12-15-2021 IgA [Mass/Vol] 116 mg/dL [facility] Work Phone: [phone] Serum or plasma IgG measurem ent (mass/volume)on 12-15-2021 IgG [Mass/Vol] 821 mg/dL [facility] Work Phone: [phone] Serum or plasma IgM measurem ent (mass/volume)on 12-15-2021 IgM [Mass/Vol] 160 mg/dL [facility] Work Phone: [phone] Serum or plasma albumin andrez urement (mass/volume)on 12-15-2021 Albumin [Mass/Vol] 3.7 g/dL 3.2-5.0 [facility] Work Phone: [phone] Serum or plasma albumin/glob ulin mass ratioon 12-15-2021 Albumin/Globulin [Mass ratio] 1.1 {ratio} 0.9-2.4 [facility] Work Phone: [phone] Serum or plasma beta globuli n measurement by electrophoresis (mass/volume)on 12-15-2021 Beta globulin Elph [Mass/Vol] 0.9 g/dL [facility] Work Phone: [phone] Serum or plasma calcium andrez urement (mass/volume)on 12-15-2021 Calcium [Mass/Vol] 9.0 mg/dL 8.5-10.1 [facility] Work Phone: [phone] Serum or plasma creatinine m easurement (mass/volume)on 12-15-2021 Creatinine [Mass/Vol] 0.97 mg/dL 0.70-1.30 [facility] Work Phone: Comment on above: The validity of the calculated GFR & GFRAA in patients over 70 years has not been determined. Clinical correlation is essential. 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 Serum or plasma urea nitroge n measurement (mass/volume)on 12-15-2021 Urea nitrogen [Mass/Vol] 18 mg/dL 7-18 [facility] Work Phone: Serum perinuclear neutrophil cytoplasmic antibody titer by immunofluorescenceon 12-15-2021 Neutrophil cytoplasmic Ab.perinuclear IF (S) [Titer] <1:20 titer Neg:<1:20 [facility] Work Phone: Comment on above: The presence of posi tive fluorescence exhibiting P-ANCA orC-ANCA patterns alone is not specific for the diagnosis ofWegener's Granulomatosis (WG) or microscopic polyangiitis.Decisions about treatment should not be based solely onANCA IFA results. The [employer] ANCA [employer] Consensusrecommends follow up testing of positive sera with both OH-3 and MPO-ANCA enzyme immunoassays. As many as 5% serumsamples are positive only by EIA. Ref. AM J Clin Drtoag6627;111:507-513. Serum tissue transglutaminas e IgA antibody assay (units/volume)on 12-15-2021 tTG IgA Qn (S) <2 U/mL [facility] Work Phone: Comment on above: Negative 0 - 3 Weak Positive 4 - 10 Positive >10 Tissue Transglutaminase (tTG) has been identified as the endomysial antigen. Studies have demonstr- ated that endomysial IgA antibodies have over 99% specificity for gluten sensitive enteropathy. Thin prep Papanicolaou smear with manual screeningon 12-15-2021 Thin prep Papanicolaou smear with manual screening 20 U/L 15-37 [facility] Work Phone: Thin prep Papanicolaou smear with manual screening 4 5-15 [facility] Work Phone: Thin prep Papanicolaou smear with manual screening 206 U/L 87-241 [facility] Work Phone: [phone] Thin prep Papanicolaou smear with manual screening 1.3 [facility] Work Phone: Total protein bloodon 2021 Protein [Mass/Vol] 6.5 g/dL [facility] Work Phone: No Panel Informationon 09-01 Prostate Specific Antigen Screen 2.71 ng/mL 0.00-4.00 [facility] Work Phone: Comment on above: This test was perfor med using the TPSA assay method for [facility] chemistry system. Values obtained with differentassay methods cannot be used interchangably.When changing PSA assays in the course of monitoring apatient, additional sequential testing should be carriedout to confirm baseline values. PROGRESSon 05-23-2019 PROGRESS HNO ID: [id number] Author: ALAN Brody (Ct) Service: ? Author Type: Clinical [employer] Manager Type: Progress Notes Filed: 05/23/2019 7:38 AM [...] ALAN Brody May 23, 2019 7:38 AM [facility] XR KNEE 3V AP/LAT/CLINTON BILon 05-23-2019 [...] than left 2. Satisfactory appearing left DEVIN Maintenance Advisor: Mzinga Transcribe Date/Time: May 23 2019 8:01A Dictated by : SHERYL CABRERA MD This examination was interpreted and the report reviewed and electronically signed by: SHERYL CABRERA MD on May 23 2019 8:03AM EST [id number] [facility] XR PELVIS 1V APon 05-23-2019 XR [...] than left 2. Satisfactory appearing left DEVIN Maintenance Advisor: Mzinga Transcribe Date/Time: May 23 2019 8:01A Dictated by : SHERYL CABRERA MD This examination was interpreted and the report reviewed and electronically signed by: SHERYL CABRERA MD on May 23 2019 8:03AM EST [id number] [facility] Vital Signs Date Time Vital Sign Value Performing Clinician Facility 01-05-2025 20:27-0400 Body temperature 98.4 [degF] Dr. Mary Abernathy MD Work Phone: [facility] 01-05-2025 20:27-0400 Diastolic blood pressure 67 mm[Hg] Dr. Mary Abernathy MD Work Phone: [phone] [place] [address] 01-05-2025 20:27-0400 Heart rate 70 /min Dr. Mary Abernathy MD Work Phone: [phone] 01-05-2025 20:27-0400 Respiratory rate 18 /min Dr. Mary Abernathy MD Work Phone: [phone] [place] [address] 01-05-2025 20:27-0400 SaO2% (BldA) [Mass fraction] 95 % Dr. Mary Abernathy MD Work Phone: [facility] 01-05-2025 20:27-0400 Systolic blood pressure 135 mm[Hg] Dr. Mary Abernathy MD Work Phone: [facility] 01-05-2025 16:35-0400 Body height 180.[address] Mary Abernathy MD Work Phone: [facility] 01-05-2025 16:35-0400 Body mass index (BMI) [Ratio] 39.7 kg/m2 Dr. Mary Abernathy MD Work Phone: [facility] 01-05-2025 16:35-0400 Body weight 129.[address] Mary Abernathy MD Work Phone: [facility] 12-27-2024 16:06-0400 Body temperature 98.06 [degF] DR HERSON HE MD [facility] 12-27-2024 16:06-0400 Diastolic Blood Pressure Non-Invasive 67 mm[Hg] DR HERSON HE MD [facility] 12-27-2024 16:06-0400 Heart rate 62 /min DR HERSON HE MD [facility] 12-27-2024 16:06-0400 Reason For Taking VItal Signs DR HERSON HE MD [facility] 12-27-2024 16:06-0400 Respiratory rate 20 /min DR HERSON HE MD [facility] 12-27-2024 16:06-0400 Systolic Blood Pressure Non-Invasive 104 mm[Hg] DR HERSON HE MD [facility] 12-27-2024 11:55-0400 Body temperature 97.34 [degF] DR HERSON HE MD [facility] 12-27-2024 11:55-0400 Diastolic Blood Pressure Non-Invasive 73 mm[Hg] DR HERSON HE MD [facility] 12-27-2024 11:55-0400 Heart rate 65 /min DR HERSON HE MD [facility] 12-27-2024 11:55-0400 Respiratory rate 18 /min DR HERSON HE MD [facility] 12-27-2024 11:55-0400 Systolic Blood Pressure Non-Invasive 119 mm[Hg] DR HERSON HE MD [facility] 12-27-2024 08:35-0400 Body temperature 97.7 [degF] DR HERSON HE MD [facility] 12-27-2024 08:35-0400 Diastolic Blood Pressure Non-Invasive 66 mm[Hg] DR HERSON HE MD [facility] 12-27-2024 08:35-0400 Heart rate 81 /min DR HERSON HE MD [facility] 12-27-2024 08:35-0400 Respiratory rate 18 /min DR HERSON HE MD [facility] 12-27-2024 08:35-0400 Systolic Blood Pressure Non-Invasive 110 mm[Hg] DR HERSON HE MD [facility] 12-27-2024 04:34-0400 Heart rate 83 /min DR HERSON HE MD [facility] 12-26-2024 23:36-0400 Heart rate 80 /min DR HERSON HE MD [facility] 12-26-2024 10:45-0400 Body temperature 96.08 [degF] DR HERSON HE MD [facility] 12-26-2024 10:45-0400 Heart rate 76 /min DR HERSON HE MD [facility] 12-26-2024 10:26-0400 Body height 180.[address] HERSON HE MD [facility] 12-26-2024 10:26-0400 Body weight 127.[address] HERSON HE MD [facility] 12-26-2024 10:26-0400 Body weight 39.31 kg/m2 DR HERSON HE MD [facility] 12-26-2024 09:49-0400 Heart rate 86 /min DR HERSON HE MD [facility] 12-26-2024 09:35-0400 Heart rate 86 /min DR HERSON HE MD [facility] 12-26-2024 09:02-0400 Body temperature 97.34 [degF] DR HERSON HE MD [facility] 12-26-2024 09:00-0400 Respiratory Rate - Anes 0 br/min DR HERSON HE MD [facility] 12-26-2024 08:55-0400 Respiratory Rate - Anes 10 br/min DR HERSON HE MD [facility] 12-26-2024 08:50-0400 Respiratory Rate - Anes 9 br/min DR HERSON HE MD [facility] 12-26-2024 08:45-0400 Body temperature 96.8 [degF] DR HERSON HE MD [facility] 12-26-2024 08:30-0400 Body temperature 96.8 [degF] DR HERSON HE MD [facility] 12-26-2024 08:15-0400 Body temperature 96.8 [degF] DR HERSON HE MD [facility] 12-26-2024 05:42-0400 Body height 180.[address] HERSON HE MD [facility] 12-26-2024 05:42-0400 Body temperature 97.88 [degF] DR HERSON HE MD [facility] 12-26-2024 05:42-0400 Body weight 127.[address] HERSON HE MD [facility] 12-26-2024 05:42-0400 Heart rate 76 /min DR HERSON HE MD [facility] 12-13-2024 08:46-0400 Body height 180.[address] HERSON HE MD [facility] 12-13-2024 08:46-0400 Body weight 127.[address] HERSON HE MD [facility] 12-13-2024 08:46-0400 Body weight 39.31 kg/m2 DR HERSON HE MD [facility] 11-29-2023 07:26-0400 Body height 180.[address] Mary Abernathy Work Phone: [facility] 11-29-2023 07:26-0400 Body weight 122.[address] Mary Abernathy Work Phone: [facility] 11-29-2023 07:10-0400 Body weight 122.[address] Mary Abernathy Work Phone: [facility] 11-29-2023 07:09-0400 Body mass index (BMI) [Ratio] 37.6 kg/m2 Dr. Mary Abernathy Work Phone: [facility] 11-26-2023 07:40-0400 Body mass index (BMI) [Ratio] 37.6 kg/m2 Dr. Mary Abernathy Work Phone: [facility] 11-19-2023 14:04-0400 Body mass index (BMI) [Ratio] 37.7 kg/m2 Dr. Mary Abernathy Work Phone: [facility] 11-19-2023 14:04-0400 Body weight 122.[address] Mray Abernathy Work Phone: [facility] 11-19-2023 14:04-0400 Diastolic blood pressure 69 mm[Hg] Dr. Mary Abernathy Work Phone: [facility] 11-19-2023 14:04-0400 Heart rate 74 /min Dr. Mary Abernathy Work Phone: [facility] 11-19-2023 14:04-0400 Respiratory rate 16 /min Dr. Mary Abernathy Work Phone: [facility] 11-19-2023 14:04-0400 Systolic blood pressure 150 mm[Hg] Dr. Mary Abernathy Work Phone: [facility] 08-26-2023 09:10-0500 Body mass index (BMI) [Ratio] 37.7 kg/m2 Dr. Mary Abernathy Work Phone: [facility] 08-20-2023 07:28-0500 Body weight 122.[address] Mary Abernathy Work Phone: [facility] 07-14-2022 11:07-0500 Body height 180.[address] Mary Abernathy Work Phone: [facility] Work Phone: 07-14-2022 10:58-0500 Body mass index (BMI) [Ratio] 40.2 kg/m2 Dr. Mary Abernathy Work Phone: [facility] Work Phone: 07-14-2022 10:58-0500 Body temperature 97.9 [degF] Dr. Mary Abernathy Work Phone: [facility] Work Phone: 07-14-2022 10:58-0500 Body weight 130.[address] Mary Abernathy Work Phone: [facility] Work Phone: 07-14-2022 10:58-0500 Diastolic blood pressure 76 mm[Hg] Dr. Mary Abernathy Work Phone: [facility] Work Phone: 07-14-2022 10:58-0500 Heart rate 98 /min Dr. Mary Abernathy Work Phone: [facility] Work Phone: 07-14-2022 10:58-0500 Respiratory rate 16 /min Dr. Mary Abernathy Work Phone: [facility] Work Phone: 07-14-2022 10:58-0500 SaO2% (BldA) [Mass fraction] 96 % Dr. Mary Abernathy Work Phone: [facility] Work Phone: 07-14-2022 10:58-0500 Systolic blood pressure 139 mm[Hg] Dr. Mary Abernathy Work Phone: [facility] Work Phone: 05-22-2022 11:30-0400 Diastolic blood pressure 90 mm[Hg] Dr. Mary Abernathy Work Phone: [facility] Work Phone: 05-22-2022 11:30-0400 Heart rate 77 /min Dr. Mary Abernathy Work Phone: [facility] Work Phone: 05-22-2022 11:30-0400 Respiratory rate 18 /min Dr. Mary Abernathy Work Phone: [facility] Work Phone: 05-22-2022 11:30-0400 SaO2% (BldA) [Mass fraction] 98 % Dr. Mary Abernathy Work Phone: [facility] Work Phone: 05-22-2022 11:30-0400 Systolic blood pressure 186 mm[Hg] Dr. Mary Abernathy Work Phone: [facility] Work Phone: 05-22-2022 10:33-0400 Body height 180.[address] Mary Abernathy Work Phone: [facility] Work Phone: 05-22-2022 10:33-0400 Body mass index (BMI) [Ratio] 39.9 kg/m2 Dr. Mary Abernathy Work Phone: [facility] Work Phone: 05-22-2022 10:33-0400 Body temperature 97.2 [degF] Dr. Mary Abernathy Work Phone: [facility] Work Phone: 05-22-2022 10:33-0400 Body weight 129.[address] Mary Abernathy Work Phone: [facility] Work Phone: 01-24-2022 13:11-0400 Body temperature 98.71 [degF] Bert Downing MD Work Phone: [facility] 01-24-2022 13:11-0400 Body weight 134.72 kg Bert Downing MD Work Phone: [facility] 01-24-2022 13:11-0400 Diastolic blood pressure 72 mm[Hg] Bert Downing MD Work Phone: [facility] 01-24-2022 13:11-0400 Heart rate 78 /min Bert Downing MD Work Phone: [facility] 01-24-2022 13:11-0400 Respiratory rate 16 /min Bert Downing MD Work Phone: [facility] 01-24-2022 13:11-0400 SaO2% (BldA) [Mass fraction] 97 % Bert Downing MD Work Phone: [facility] 01-24-2022 13:11-0400 Systolic blood pressure 132 mm[Hg] Bert Downing MD Work Phone: [facility] 12-01-2021 08:18-0400 Body temperature 98.8 [degF] Dr. Mary Abernathy Work Phone: [facility] Work Phone: 12-01-2021 08:18-0400 Diastolic blood pressure 61 mm[Hg] Dr. Mary Abernathy Work Phone: [facility] Work Phone: 12-01-2021 08:18-0400 Heart rate 80 /min Dr. aMry Abernathy Work Phone: [facility] Work Phone: 12-01-2021 08:18-0400 Respiratory rate 16 /min Dr. Mary Abernathy Work Phone: [facility] Work Phone: 12-01-2021 08:18-0400 SaO2% (BldA) [Mass fraction] 95 % Dr. Mary Abernathy Work Phone: [facility] Work Phone: 12-01-2021 08:18-0400 Systolic blood pressure 122 mm[Hg] Dr. Mary Abernathy Work Phone: [facility] Work Phone: 12-01-2021 07:16-0400 Body height 180.[address] Mary Abernathy Work Phone: [facility] Work Phone: 12-01-2021 07:16-0400 Body mass index (BMI) [Ratio] 39.6 kg/m2 Dr. Mary Abernathy Work Phone: [facility] Work Phone: 12-01-2021 07:16-0400 Body weight [address] Mary Abernathy Work Phone: [facility] Work Phone: Encounters Encounter Date Encounter Type Care Provider Facility Start: 02-08-2025 Non-patient / Non-visit Dr. Hitesh ZELAYA [facility] Start: 02-08-2025 End: 02-08-[address] Mary Abernathy MD Work Phone: [facility] Work Phone: Start: 02-08-2025 End: 02-08-[address] Janey Sanders MD -Cardiovascular Services Work Phone: Start: 02-08-2025 End: 02-08-2025 ambulatory Janey Sanders Facility:[facility] Start: 01-25-2025 End: 01-25-[address] Mary Abernathy MD Work Phone: [facility] Work Phone: Start: 01-25-2025 End: 01-25-[address] Janey Sanders MD -Laboratory [facility] Start: 01-25-2025 End: 01-25-2025 ambulatory Janey Sanders Facility:[facility] Start: 01-05-2025 End: 01-05-2025 Emergency department patient visit Dr. Mary Abernathy MD Work Phone: -Emergency Department Work Phone: Start: 01-04-2025 End: 01-04-[address] Mary Abernathy MD Work Phone: [facility] Work Phone: Start: 01-04-2025 End: 01-04-[address] Janey Sanders MD -Laboratory [facility] Start: 01-04-2025 End: 01-04-2025 ambulatory Janey Sanders Facility:[facility] Start: 12-26-2024 End: 12-27-[address] MARY ABERNATHY MD Facility:[facility] Start: 12-26-2024 End: 12-27-[address] HERSON HE MD [facility] Start: 12-13-2024 End: 12-13-[address] HERSON HE MD [facility] Start: 12-13-2024 End: 12-13-[address] HERSON HE MD Facility:[facility] Start: 12-01-2024 End: 12-01-[address] Mary bAernathy MD Work Phone: [facility] Work Phone: Start: 12-01-2024 End: 12-01-[address] Mary Abernathy MD -Ultrasound, [facility] Work Phone: Start: 12-01-2024 End: 12-01-2024 ambulatory Mary Abernathy Facility:[facility] Start: 11-24-2024 End: 11-24-[address] Mary Abernathy MD Work Phone: [facility] Work Phone: Start: 11-24-2024 End: 11-24-2024 Patient encounter procedure Kp James MANAGER UI-[employer] -Laboratory Work Phone: Start: 11-24-2024 End: 11-24-2024 ambulatory Kp James Facility:[facility] Start: 11-07-2024 End: 11-07-[address] Mary Abernathy MD Work Phone: [facility] Work Phone: Start: 11-07-2024 End: 11-07-[address] [facility] Start: 11-07-2024 End: 11-07-2024 ambulatory Mary Abernathy Facility:[facility] Start: 10-03-2024 ambulatory Mary Abernathy Facility: [facility] Start: 07-10-2024 End: 07-10-2024 ambulatory Pedro Segura Facility:[facility] Start: 07-10-2024 End: 07-10-2024 ambulatory Pedro Segura Facility:[facility] Start: 06-23-2024 End: 06-23-2024 ambulatory Kp James Facility:[facility] Start: 06-07-2024 End: 06-07-2024 ambulatory Pedro Segura Facility:[facility] Start: 06-07-2024 End: 06-07-2024 ambulatory Pedro Segura Facility:[facility] Start: 05-15-2024 End: 05-15-[address] MARY ABERNATHY MD Facility:[facility] Start: 05-03-2024 End: 05-03-2024 ambulatory KP Anastacia ERIKA ASSET PROTECTION ASSISTANT-PHYSICIAN CODING SPECIALIST Facility:[facility] Start: 05-03-2024 End: 05-03-2024 Patient encounter procedure KP Galaviz ERIKA ASSET PROTECTION ASSISTANT-PHYSICIAN CODING SPECIALIST [facility] Start: 04-25-2024 ambulatory KP GAUTHIER ASSET PROTECTION ASSISTANT-PHYSICIAN CODING SPECIALIST Facility:[facility] Start: 04-13-2024 End: 04-13-2024 ambulatory Mary Abernathy Facility:[facility] Start: 04-03-2024 End: 04-03-[address] MARY ABERNATHY MD Facility:[facility] Start: 12-23-2023 Non-patient / Non-visit Dr. Winnie Abernathy Work Phone: [facility] Work Phone: Start: 12-21-2023 Non-patient / Non-visit Dr. Winnie Abernathy Work Phone: [facility] Start: 12-21-2023 End: 12-21-[address] Mary Abernathy Work Phone: [facility] Work Phone: Start: 12-21-2023 End: 12-21-[address] Mary Abernathy Work Phone: [facility]-Cardiovascular Services Work Phone: Start: 11-29-2023 End: 11-29-2023 Admission to same day surgery center Dr. Mary Abernathy Work Phone: [facility]-[employer] Operator/Special Procedures Work Phone: Start: 11-29-2023 End: 11-29-[address] Mary Abernathy Work Phone: [facility] Work Phone: Start: 11-19-2023 End: 11-19-[address] Mary Abernathy Work Phone: [facility] Work Phone: Start: 10-19-2023 End: 10-19-[address] Mary Abernathy Work Phone: [facility] Work Phone: Start: 09-04-2023 Telephone encounter Jaylan bowen PA-C Work Phone: [facility] Comment on above: Results Start: 09-03-2023 End: 09-03-2023 ambulatory MARY ABERNATHY Facility:[facility] Start: 08-26-2023 End: 08-26-[address] Mary Abernathy Work Phone: [facility] Work Phone: Start: 04-27-2023 End: 04-27-2023 ambulatory [facility] Work Phone: Start: 04-27-2023 End: 04-27-2023 Patient encounter procedure [facility] Start: 04-09-2023 End: 04-09-2023 ambulatory [facility] Work Phone: Start: 04-09-2023 End: 04-09-2023 Patient encounter procedure [facility] Start: 03-23-2023 End: 03-23-2023 ambulatory [facility] Work Phone: Start: 03-23-2023 End: 03-23-2023 Patient encounter procedure [facility] Work Phone: Start: 07-14-2022 End: 07-14-[address] Mary Abernathy Work Phone: [facility] Start: 07-07-[address] Mary hicks Work Phone: [facility] On[facility] Start: 06-18-2022 End: 06-18-[address] Mary Abernathy Work Phone: [facility] Start: 05-28-2022 Non-patient / Non-visit Dr. Winnie Abernathy Work Phone: [facility] Start: 05-28-2022 End: 05-28-[address] Mary Abernathy Work Phone: [facility]-Cardiovascular Services Start: 05-22-2022 End: 05-22-2022 Emergency department patient visit Dr. Mary Abernathy Work Phone: [facility]-Emergency Department Start: 05-22-2022 End: 05-22-[address] Mary Abernathy Work Phone: [facility] Start: 05-20-2022 End: 05-20-[address] Mary Abernathy Work Phone: [facility] Work Phone: Start: 05-20-2022 End: 05-20-[address] Mary Abernathy Work Phone: [facility] Start: 02-27-2022 End: 02-27-[address] Mary Abernathy Work Phone: [facility] Start: 01-25-2022 Telephone encounter Corrie Hair APRN.CNP Work Phone: [facility] Comment on above: Results Start: 01-24-2022 End: 01-24-2022 Patient encounter procedure Bert Downing MD Work Phone: [facility] Comment on above: Cough (Primary Dx); Exposure to confirmed case of COVID-19; Inflamed skin tag Start: 12-19-2021 End: 12-19-[address] Mary Abernathy Work Phone: [facility] Start: 12-15-2021 End: 12-15-[address] Mary Abernathy Work Phone: [facility]-Laboratory Start: 12-15-2021 End: 12-15-[address] Mary Abernathy Work Phone: [facility] Start: 12-01-2021 Non-patient / Non-visit Dr. Winnie Abernathy Work Phone: [facility] Start: 12-01-2021 End: 12-01-2021 Admission to same day surgery center Dr. Mary Abernathy Work Phone: [facility]-Endoscopy Start: 11-27-2021 Non-patient / Non-visit Dr. Winnie Abernathy Work Phone: [facility] Start: 10-08-2021 End: 10-08-[address] Mary Abernathy Work Phone: [facility] Start: 09-01-2021 End: 09-01-[address] Mary Abernathy Work Phone: [facility]-Laboratory, [facility] Date Procedure Procedure Detail Performing Clinician Start: 01-05-[address] Mary Abernathy MD Work Phone: Start: 01-05-2025 CT angiography of ch est with contrast Dr. Mary Abernathy MD Work Phone: Start: 01-04-[address] Mary Abernathy MD Work Phone: Comment on above: According to the [facility] [employer],the reference interval for [...] diagnostic, especiallyat very low levels. The assay inside trucker has found thatfour percent of individuals without [...] DR HERSON HE MD Cholecystectomy KP GAUTHIER ASSET PROTECTION ASSISTANT-PHYSICIAN CODING SPECIALIST Colonoscopy DR HERSON Webb MD Inguinal herniorrhaphy KP JAMES ASSET PROTECTION ASSISTANT-PHYSICIAN CODING SPECIALIST Insertion of hip prosthesis KP JAMES ASSET PROTECTION ASSISTANT-PHYSICIAN CODING SPECIALIST Comment on above: left Plan of Treatment Date Care Activity Detail Author Start: 01-05-2025 [facility] Start: 11-29-2023 Patient discharge [facility] Start: 10-19-2023 Patient referral [facility] Work Phone: Start: 08-23-2023 Advance Directive Discussion Advance Directive Discussion [facility] Start: 08-23-2023 Depression Assessment Depression Ass essment [facility] Start: 04-23-2023 Covid-19 Vaccine ( season) Covid-19 Vaccine ( season) [facility] Start: 04-23-2023 Influenza vaccination Influenza Vacc ine (#1) [facility] Start: 01-24-2022 End: 02-07-2022 SARS-CoV-2 (COVID-19) RNA [Presence] in Respiratory specimen by ZOYA with probe detection 2019 CORONAVIRUS Microbiology Routine Cough Exposure to confirmed case of COVID-19 Expected: 01/24/2022, Expires: 02/07/2022 [facility] Work Phone: Comment on above: Expected: 01/24/2022 , Expires: 02/07/2022 Start: 12-01-2021 Colonoscopy w/biopsy single/multiple COLONOSCOPY AND BIOPSY [facility] Work Phone: Start: 12-01-2021 Colsc flx w/rmvl of tumor polyp lesion snare tq COLONOSCOPY W/LESION REMOVAL [facility] Work Phone: Start: 11-07-2021 COVID-19 VACCINE (4 - Booster for Pfizer series) COVID-19 VACCINE (4 - Booster for Pfizer series) [facility] Start: 08-23-2021 ADVANCE DIRECTIVE DISCUSSION ADVANCE DIRECTIVE DISCUSSION [facility] Start: 08-29-2019 Pneumococcal Vaccine : 65+ (2 of 2 - PCV) Pneumococcal Vaccine: 65+ (2 of 2 - PCV) [facility] Start: 2006 PNEUMOCOCCAL: 65+ (1 - PCV) PNEUMOCOCCAL: 65+ (1 - PCV) [facility] Start: 2001 RSV Vaccine (1 - 1-d ose 60+ series) RSV Vaccine (1 - 1-dose 60+ series) [facility] Start: 1991 SHINGRIX VACCINE (1 of 2) LICONA GRIX VACCINE (1 of 2) [facility] Start: 1986 DIABETES SCREEN DIABETES SCREEN [facility] Start: 1986 Diabetes Screening Diabetes Screenin g [facility] Start: 1960 Urine microalbumin profile [facility] Start: 1953 Adult depression screening assessment DEPRESSION SCREENING [facility] Catheterization of l eft [facility] MR Lumbar spine [facility] Patient Education [facility] Work Phone: Patient referral [facility] Work Phone: Procedure [facility] Work Phone: Thyroglobulin antibo dy measurement [facility] Thyroperoxidase Ab [Units/volume] in Serum or Plasma [facility] XR Spine Lumbar and Sacrum Views [facility] Work Phone: [facility] Immunizations Immunization Date Immunization Notes Care Provider Fa joseph 06-23-2024 influenza virus vacc ine, unspecified formulation DR HERSON HE MD [facility] 06-05-2022 influenza virus vacc ine, unspecified formulation Jaylan Todd PA-C Work Phone: [facility] 07-10-2021 SARS-CoV-2 mRNA (tozinameran) vaccine DR HERSON HE MD [facility] 05-23-2021 influenza virus vacc ine, unspecified formulation DR HERSON HE MD [facility] 10-17-2020 SARS-CoV-2 mRNA (tozinameran) vaccine DR HERSON HE MD [facility] 09-27-2020 SARS-CoV-2 mRNA (tozinameran) vaccine DR HERSON HE MD [facility] Comment on above: Result Comment: 2024: [id number] 06-15-2019 influenza virus vacc ine, unspecified formulation DR HERSON HE MD [facility] 08-29-2018 influenza virus vacc ine, unspecified formulation DR HERSON HE MD [facility] 08-29-2018 pneumococcal polysaccharide vaccine, [address] HERSON HE MD [facility] Payers Date Payer Category Payer Medicare [id number] 2024 Self-pay [id number] 2020 Unknown [id number] 2020 Unknown [id number] 2019 Unknown [employer] [id number] 2019-Present [phone] [address] [place] [address] Indemnity [id number] 2006 Medicare [id number] 2006 Medicare MEDICARE MEDICAR E A AND B [id number] 2006-Present [phone] [address] [address] [place] [id number] Medicare [id number] 2006 Medicare [id number] 1941 Unknown [id number] 1941 Unknown [id number] 1941 Unknown [id number] 1941 Unknown [id number] [id number] 1941 Unknown [id number] [id number] 1941 Unknown [id number] [id number] Unknown [id number] Unknown [id number] [id number] Unknown [id number] 2.16.840.1.152909.3.579.2.462 Unknown [id number] 2.16.840.1.207649.3.579.2.462 Unknown [id number] 2.16.840.1.189947.3.579.2.462 Unknown [id number] 2.16.840.1.160909.3.579.2.462 Unknown [id number] 2.16.840.1.279549.3.579.2.462 Unknown [id number] 2.16.840.1.201243.3.579.2.462 Unknown [id number] 2.16.840.1.075469.3.579.2.462 Unknown [id number] 2.16.840.1.493199.3.579.2.462 Unknown [id number] 2.16.840.1.781778.3.579.2.462 Unknown [id number] 2.16.840.1.066536.3.579.2.462 Unknown [id number] Unknown [id number] Unknown [id number] Unknown [id number] Social History Date Type Detail Facility Start: 11-26-2021 End: 11-29-2023 Tobacco smoking status NVIS Unknown if ever smoked [facility] Start: 1940 Sex Assigned At Male W [facility] Start: 01-24-2022 End: 01-05-2025 Tobacco smoking status NVIS Never smoked tobacco [facility] Work Phone: Start: 01-24-2022 End: 09-03-2023 Tobacco use and exposure Smokeless tobacco non-user [facility] Work Phone: Start: 1940 Sex Assigned At Not on file [facility] Start: 07-31-2020 End: 09-03-2023 History of Social function [facility] Start: 07-31-2020 End: 09-03-2023 Tobacco use panel [facility] National Score (1-10 0), lower number is lower risk Not on file [facility] Start: 11-16-2024 End: 12-04-2024 Sex Male (finding) [facility] Status Date Assessment Result [facility] 12-27[facility]2024 [facility] Functional Status Non-Slip footw ear, supervised while toileting, Room check performed [facility] 12-27-2024 Functional Status Leticia [facility] 12-27-2024 Functional Status Leticia [facility] 12-27-2024 Functional Status Leticia [facility] 12-26-2024 Functional Status Leticia [facility] 12-26-2024 Functional Status Min A [facility] 12-26-2024 Functional Status Single level home [facility] 12-26-2024 Functional Status Compression ga rments, ice on, tension pillow in place [facility] 12-26-2024 Functional Status Leticia [facility] 12-26-2024 Functional Status Maintained [facility] 12-13-2024 Functional Status Sensory Deficits None A [facility] Mental Status Date Assessment Result Facility 12-27-2024 Mental Status Oriented x 4 [facility] 12-26-2024 Mental Status [facility] 12-26-2024 Mental Status [facility] 05-22-2022 Cognitive function Level Of Cons ciousness Awake;Alert;Appropriate [facility] Work Phone: 12-01-2021 Cognitive function Voice/Name [facility] Work Phone: Clinical Notes 01-24-2022 to 01-05-2025 Note Date & Type Note Facility 01-05-2025 Radiology Diagnostic study note [facility] Imaging Services [address] [place] [address] CTA Chest W/WO Contrast MR#: [id number] Acct: [id number] Name: LUC GANNON Rep #: [id number] : 1940 M 84 From: Shahnaz Copeland MD PCP: Dr. Janey Sanders MD Status: RE G ER Study:CTA Chest W/WO Contrast Date of Exam: 01/05/25 Exam# [id number] Ordering Dr: Bri Carbajal DO PROCEDURE: CTA [...] acute findings in the thorax. [facility] CC: Dr. Janey Sanders MD; Dr. Modesto Carbajal DO ~ Maintenance Advisor: Signed [facility] 12-27-2024 Note Discharge Instructions Thank you for [...] 03/08/2025 10:45 AM EDT DANIEL ANDRADE MDltman [facility] Physicians [facility] [address] [facility] [address] [place] [address]- [phone] Confirmed Follow Up Appointments Follow Up with [facility] When:12/28/2024 10:15 AM EDT Where:[address] [place] [address]- [phone] Additional Information: This is your first physical therapy appointment. Follow-up as scheduled. Follow Up with JANEY SANDERS MD When:01/04/2025 11:10 AM EDT Where:[address] [place] [address]- [phone] Additional Information: This is your post-hospital follow-up appointment to recheck your labwork. Follow Up with YOSEF SALMON PA-C, Orthopedic When:01/08/2025 01:15 PM EDT Where:[facility] [address] [place] [address]- Additional Information: This is your post-op appointment. [...] bowel movement, then as needed Pickup at [facility]/pharmacy #3321 today @ 0830 New famotidine (Pepcid 20 mg oral tablet) 1 tab(s) by mouth Once a day Pickup at [facility]/pharmacy #3321 today @ 0830 New meloxicam (Mobic 7.5 mg oral tablet) 1 tab(s) by mouth Twice daily with meals Do not take any other nonsteroidal anti-inflammatories while on meloxicam/ Mobic. Pickup at [facility]/pharmacy #3321 Changed acetaminophen (Tylenol) 1,000 Milligram by mouth Three (3) times a day not to exceed 3000 mg/ day today @ 3p Changed oxyCODONE (oxyCODONE 5 mg oral tablet ( IMMEDIATE release )) See instructions S/P total right hip arthroplasty 1-2 tab(s) Oral q4h, As needed for as needed for pain Pickup at [facility]/pharmacy #3321 today @ 5a Unchanged cholecalciferol (Vitamin [...] Once a day yesterday @9p Pharmacy Information [facility]/pharmacy #3321: [address] [place], [place] [phone] Please take this list to your next [...] were not tolerated. Extended-release oxycodone is for tkcobc-tdr-tgjkg treatment of severe and chronic pain that [...] by your doctor. Stop taking all other gdtfyi-tga-yklui opioid pain medicines when you start taking [...] may report side effects to FDA at 3-362-IMD-8413. What other drugs will affect oxycodone? You [...] may affect oxycodone. This includes prescription and piwg-cle-ibeghqh medicines, vitamins, and herbal products. Not all [...] to ensure that the information provided by [employer]. ('[employer]') is accurate, up-to-date, and complete, but no guarantee is made to that effect. Drug information contained herein may be time sensitive. [employer] information has been compiled for use by healthcare practitioners and consumers in the [place] and therefore [employer] does not warrant that uses outside of the [place] are appropriate, unless specifically indicated otherwise. [employer]'s drug information does not endorse drugs, diagnose patients or recommend therapy. [facility] drug information is an informational resource designed [...] effective or appropriate for any given patient. [facility] does not assume any responsibility for any aspect of healthcare administered with the aid of information [facility] provides. The information contained herein is not intended to cover all possible uses, directions, precautions, warnings, drug interactions, allergic reactions, or adverse effects. If you have questions about the drugs you are taking, check with your doctor, nurse or pharmacist. Copyright 5665-2415 [employer]. Version: 17.. Revision Date: 09/14/2023. Education Materials [facility] Post-operative Instructions PLEASE FOLLOW [facility] POST-OP INSTRUCTIONS GIVEN WATCH FOR SIGNS OF INFECTION: call the office ([phone]) if experencing any of the following: (Usually [...] on your follow up instructions. Form: 338A (31606) R: 12/27 Additional Information VACCINATE! IT SAVES LIVES! Members of the community who have not yet received the COVID-19 vaccine and would like to receive it can visit one of [facility] vaccine clinics. There are many vaccine clinic locations within the [facility]. For locations and available times, please visit https://gettheshot.coronavirus.o hio.gov/. It is important to note that some COVID mobile vaccine clinics are held outdoors and may be canceled in rainy or stormy conditions. To learn more about pediatric vaccinations (ages 5-11), we invite you to visit the [facility] webpage. https://www.[facility].org/p ages/1222-Xghkz-Qoxtfuqjmys-Freq nfcfcq-Abnzc-Qdhfknkpz.html To learn more about the COVID-19 vaccine, we invite you to visit the CDC website for a list of frequently asked questions.https://www.cdc.gov/co ronavirus/2019-ncov/vaccines/faq .html [facility] Patient Portal Access Instructions: Stay connected with your healthcare team and access your personal medical information anytime with the [facility] Patient Portal. Please follow the directions below to create your [employer] account: 1.Access the email account you provided upon registration to the hospital/physician office.2.Look for an invitation email from [facility].3.Open the email and access the invitation link: Accept Invitation to [facility].4.Fill in the required abdul to create your account. To access your account, visit [employer]/MyNextRunhart. Click the blue button labeled Access Patient [...] you will allow to register on the [facility] Patient Portal for access to your information. You can also access the [facility] Patient Portal on the [facility] florina. Simply click on Patient Portal and then log into your account. If you would like to receive a full copy of your medical records, please contact the [facility] Medical Records Department by calling [phone], Wednesday through Wednesday between 8 a.m. and [...] Call your local pharmacy or go to http://bit.FastBooking/3S9Bx1e to find one close to you.3.Make use of household items: Use cat litter or old coffee grounds to dispose medications if other options are not available. Mix your drugs with these household products, seal them in an airtight container and throw it into the garbage. Call [facility]: [phone] to be sure your drugs can be [...] Education Materials En[facility] Post-op Instruction 03/2017 (54009) Medication Leaflets oxycodone My discharge plan and instructions have been reviewed and explained to me and I,LUC GANNON understand my current condition and have read and understand these discharge instructions. I have received a written copy of the plan/instructions. If I have questions, I am aware that I should contact my doctor. Patient/Optical Store Manager Signature: Date/Time: Relationship to Patient: Witness Name/Signature: Date/Time: [facility] 12-27-2024 Note Date of Service December [...] Patient wanted his narcotic medication sent to [facility] in [place]. We have had significant difficulties with sending postoperative narcotic medications to this facility. He then decided to send it to [facility]. Patient will follow-up per postoperative instructions. [...] PA-C on 12/27/2024 08:05 AM [facility] 12-27-2024 Hospital Discharge instructions Patient Education 12/27/2024 08:05:57 5 - [facility] Post-op Instruction 03/2017 (63262) [facility] Post-operative Instructions PLEASE FOLLOW [facility] POST-OP INSTRUCTIONS GIVEN WATCH FOR SIGNS OF INFECTION: call the office ([phone]) if experencing any of the following: (Usually [...] on your follow up instructions. Form: 338A (63240) R: 12/27 Follow Up Care 12/11/2024 07:55:03 With:[facility] Address: [address] [place] [phone] When:12/28/2024 10:15:00 Comments:This is your first physical therapy appointment. Follow-up as scheduled. With:JANEY SANDERS MD Address: [address] [facility] [address] [place] [phone] When:01/04/2025 11:10:00 Comments:This is your post-hospital follow-up appointment to recheck your labwork. With:YOSEF SALMON PA-C, Orthopedic Address: [facility] [address] [place] [address] [place] [address]- When:01/08/2025 13:15:00 Comments:This is your post-op appointment. Follow-up as scheduled. [facility] 12-27-2024 Pastoral care Progress note Pastoral Care Note Entered On: 12/27/2024 9:55 EDT Performed On: 12/27/2024 9:53 EDT by Yosef Pryor Pastoral Care Type of Pastoral Visit : Initial visit Spiritual Care Visit Initiated by : Economic Historian Spiritual Care Reason for Visit : General [...] Pryor on 12/27/2024 09:53 AM [facility] 12-27-2024 Note Date of Service December [...] Patient wanted his narcotic medication sent to [facility] in [place]. We have had significant difficulties with sending postoperative narcotic medications to this facility. He then decided to send it to [facility]. Patient will follow-up per postoperative instructions. [...] PA-C on 12/27/2024 08:05 AM [facility] 12-26-2024 Note Exam Date Time Procedure Performing Provider Status 12/26/24 10:59 AM XR Fluoro 1-2 Hrs Tech Time Modified [id number] ORIGINAL Images acquired, not reported on this accession number. [facility]05-06-2025 Note* Exam Date Time Procedure Performing Provider Status 12/26/24 9:33 AM XR Hip Right w/Pelvis 4 Views SANJAY CURRY MD; Auth (Verified) [id number] ORIGINAL EXAMINATION: 2 XRAY VIEWS OF THE [...] AM Ordering Provider: HERSON HE [facility]05-06-2025 Anesthesiology Consult note Patient: LUC GANNON Age: 84 years Sex: Male : 1940 Associated Diagnoses: None Author: WATSON CONRAD APRN-RISK MODELER Preoperative Information Time of last food or [...] Problem list: Medical Diabetes / SNOMED CT 524318614 / Confirmed Hyperthyroidism / SNOMED CT 19858710 / Confirmed, Active Problems (3) Diabetes Hyperthyroidism Osteoarthritis Histories Past Medical History: No active or resolved past medical history items have been selected or recorded. Family History: Heart disease Mother Son Heart attack Sister Mother Procedure history: Hip replacement ([id number]). Comments: 04/03/2024 15:01 EDT - Ashleigh Barry LPN left Cholecystectomy (65006137). Inguinal herniorrhaphy ([id number]). Colonoscopy (847087214). Cataracts (2255805053). Social History: Social & Psychosocial Habits Alcohol [...] Signs (last 24 hrs) Last Charted Temp Bsoyrdlh73.6 DegC (DECEMBER 26 05:42) Heart Rate Wpqbgevru32 bpm (DECEMBER 26 07:30) SBP84 mmHg (DECEMBER 26 07:30) DBP51 mmHg (DECEMBER 26 07:30) Measurements from flowsheet : Measurements 12/26/2024 5:42 EDT Height 180.3 cm Admission Weight 127.8 kg [place] Body Weight 75.26 kg Admission Body Mass [...] Attendee SN - CAt - Role Performed RISK MODELER 12/26/2024 6:50 EDT SN - WI - Route of Administration Local SN - WI - Route of Administration Local SN - WI - By (Single) SN - WI - By (Single) SN - WI - By (Single) SN - WI - By (Single) 12/26/2024 6:48 EDT SN [...] Surgeon SN - CAt - Role Performed Credit Analysis Manager 1 SN - CAt - Role Performed Credit Analysis Manager 2 SN - CAt - Role Performed Scrub 2 SN - CAt - Role Performed Scrub 1 SN - CAt - Role Performed Piledriver Carpenter 1 SN - CAt - Role Performed Physician Project Buyer 12/26/2024 6:40 EDT Continuous IV Infusions LR [...] Person #1 We May Share SHERLEY GANNON [phone] Designated Person #1 Relationship Son Privacy Restrictions Requested None Status N/A Sensory Deficits None Diagnosed With Sleep Apnea Yes Advanced Directives Yes Advance Directive Type [facility] Power of Rail Loader for [place], [place] Declaration (Living Will) Advance Directive Location [...] evident Teaching Method Explanation Preferred Spoken Language Vietnamese Preferred Written Language Vietnamese Teaching Evaluation Needs further teaching Safety Brochure [...] Allergies Yes Anesthesia Extension Set Applied Yes Toll Transmission Worker On Yes Consent Form Signed Yes Patient [...] Height 180.3 cm Admission Weight 127.8 kg [place] Body Weight 75.26 kg Admission Body Mass [...] Urinary Elimination Voiding with difficulties Skin Description [place], Dry Skin Temperature Warm Skin Integrity Intact Mucous Membrane Color [place] Skin Moisture General Dry Characteristics of Speech [...] locked, Non-Slip footwear . Assessment and Plan [place] Society of Anesthesiologists (ASA) physical status classification: Class III. Anesthetic Preoperative Plan Anesthetic technique: Spinal. Informed consent: signed by patient. Digitally Signed by WATSON CONRAD on 12/26/2024 07:40 AM [facility]04-11-2025 Radiology Diagnostic study note [facility] Imaging Services [address] [place] [id number] Testicular with Arterial Flow MR#: [id number] Acct: [id number] Name: LUC GANNON Rep #: [id number] : 1940 M 84 From: Kasey Guzmán MD PCP: Dr. Mary Abernathy MD Status: REG CLI Study:Testicular with Arterial Flow Date of E xam: 12/01/24 Exam# [id number] Ordering Dr: Mary Abernathy MD PROCEDURE: TESTICULAR [...] recommend evaluation with focused ultrasound. Reading Location: [id number] CC: Dr. Mary Abernathy MD ~ Maintenance Advisor: Signed [facility]03-18-2025 Radiology Diagnostic study note [facility] Imaging Services [address] [place] [address] [id number] Hips B/L min 2 views w/ Pelvis MR#: [id number] Acct: [id number] Name: LUC GANNON Rep #: [id number] : 1940 84 From: Halle Recinos MD PCP: Dr. Mary Abernathy MD Status: REG CLI Study:Hips B/L min 2 views w/ Pelvis Date of Exam: 11/07/24 Exam# [id number] Ordering Dr: Mary Abernathy MD EXAM: XR [...] PRASANNA CC: Dr. Mary Abernathy MD ~ Maintenance Advisor: Signed [facility]01-14-2024 Miscellaneous Notes* Telephone Encounter - Jennifer Perdomo [...] follow-up with primary doctor. [facility] NoteHNO ID: [id number] Author: ALEXANDER WILL APRN.PHYSICIAN CODING SPECIALIST Service: ? Author Type: Nurse Practitioner Type: [...] started abruptly. Patient states they have used fbrp-wle-lzusmpv medication with some success. Temp today of [...] of care. This note was generated using [employer] software. It ma (more content not included)...[facility] 01-25-2022 Miscellaneous Notes* Telephone Encounter - [...] ER. Corrie Hair APRN.CNP documented in this encounterC[facility] History of Present illness Narrative* Bert [...] dermatology. Bert Downing MD documented in this encounterC[facility] HospitalEvaluation + Plan note Future Appointments Appointment Date:05/04/2024 09:30:00 AM Scheduled Provider: Location:[facility] Appointment Type:yyNM Thyroid Image w/ Uptake Multiple S2 Appointment Date:05/15/2024 10:00:00 AM Scheduled Provider:KP JAMES APRN-PHYSICIAN CODING SPECIALIST Location:[facility] Appointment Type:ENDO OV Future Scheduled Tests Laboratory* Thyrotropin Receptor Ab, Serum 05/07/24 * Thyroid Stimulating Hormone 05/07/24 * Free T4 05/07/24 * Free T3 05/07/24 [facility] Evaluation + Plan note Future Appointments Appointment Date:03/08/2025 10:45:00 AM Scheduled Provider:DANIEL ANDRADE MD Location:[facility] Appointment Type:ENDO OV Future Scheduled Tests Laboratory* Thyroid Stim Immunoglobulin 03/01/25 * Thyroid Stimulating Hormone 03/01/25 * Thyroid Stimulating Hormone 05/07/24 * Free T4 03/01/25 * A1C Hemoglobin 03/01/25 * Free T3 03/01/25 * Vitamin D Level 03/01/25 * Complete Metabolic Panel 03/01/25 * anti-Thyroid Peroxidase 03/01/25 Radiology* IR Thyroid Biopsy 05/15/24 [facility] Evaluation note* Diagnosis Onset Date Resolution Status Diarrhea acute [facility] Work Phone: Evaluation note* Diagnosis Onset Date Resolution Status Diarrhea acute Diarrhea acute Dysuria [facility] Work Phone: Evaluation note* Diagnosis Cough- Primary Exposure to confirmed case of COVID-19 Inflamed skin tag Unspecified hypertrophic and atrophic condition of skin documented in this encounter [facility]* Diagnosis Onset Date Resolution Status Crohn disease chronic [facility] Work Phone: Evaluation note* Diagnosis Onset Date Resolution Status Crohn disease chronic Monoclonal gammopathies media analyst ale [facility] Work Phone: Evaluation noteNo assessment information available [facility] Work Phone: Evaluation note* Diagnosis Onset Date Resolution Status Myelopathy acute Other intervertebral disc degeneration, 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 Spondylolisthesis, lumbar region acute HTN (hypertension), benign a cute Palpitations acute Shortness of breath on exertion acute [facility] Work Phone: Evaluation note* Diagnosis Onset Date Resolution Status Lumbar disc herniation with radiculopathy acute Spondylolisthesis, lumbar region acute HTN (hypertension), benign a cute Palpitations acute Shortness of breath on exertion acute [facility] Work Phone: Hospital course Narrative No data available for this section [facility] Hospital Discharge instructions Additional Instructions Continue your [...] Follow-up with your cardiology appointment and your echocardiogram.[facility] Work Phone: Hospital Discharge instructions No data available for this section [facility] Hospital Discharge instructions Additional Instructions Thank you [...] care physician for further outpatient evaluation and management.[facility] Work Phone: Progress note No data available for this section [facility] Reason for referral (narrative)No reason for referral information availableWMercer County Community Hospital Work Phone: Summary Purpose Family History [...] No November 26, 2021 2:27pm Power of Rail Loader No November 26 2:27pm Advance Directive Response Recorded Date/ Time Living Will No May 22, 2022 11:11am Power of Rail Loader No April 11:11am Advance Directive Response Recorded Date/ Time Living Will No May 22, 2022 10:11am Power of Rail Loader No April 10:11am Advance Directive Response Recorded Date/ Time Advance Directives No November 28 7:26am Living Will No November 29, 2023 7:26am Power of Rail Loader No November 28 7:26am Advance Directive Response Recorded Date/ Time Advance Directives No November 28 7:26am Advance Directive Response Recorded Date/ Time Do you have a Healthcare Power of Rail Loader? No January 05, 2025 5:16pm Advance Directives [...] section and content) DATE CREATED AUTHOR 05/24/2019 [facility] DATE CREATED AUTHOR AUTHOR'S ORGANIZ ATION 09/05/2023 [facility] DATE CREATED AUTHOR AUTHOR'S ORGANIZ ATION 04/25/2024 [facility] DATE CREATED AUTHOR AUTHOR'S ORGANIZ ATION 05/19/2024 [facility] DATE CREATED AUTHOR AUTHOR'S ORGANIZ ATION 01/17/2025 [facility] DATE CREATED AUTHOR AUTHOR'S ORGANIZ ATION 02/16/2025 [facility] Goals (unrecognized section and content) Goals [...] or prosecute any alcohol or drug abuse patient.[facility] HospitalIn the event this information is protected by the Federal Confidentiality of Alcohol and Drug Abuse Patient Records regulations: The Federal rules restrict any use of the information to criminally investigate or prosecute any alcohol or drug abuse patient.[facility] HospitalIn the event this information is protected by the Federal Confidentiality of Alcohol and Drug Abuse Patient Records regulations: The Federal rules restrict any use of the information to criminally investigate or prosecute any alcohol or drug abuse patient.[facility] Reason for Visit (unrecogniz ed section [...] January 05, 2025 End: January 05, 2025 Branding Machine Operator Relationship Specialty Start Date End Date Mary Abernathy [address] [place] [address] PCP - General Family Practice 05/12/19 Branding Machine Operator Relationship Specialty Start Date End Date Mary Abernathy [address] [place] [address] PCP - General Family Practice 05/12/19 Team [...] Primary Care Provider, Attendin g Provider Active Branding Machine Operator Relationship Specialty Start Date End Date Mary Abernathy [address] [place] [address] PCP - General Family Medicine 05/12/19 Team Status: Inactive Member Role Status Dates Dr. Mary Abernathy MD Primary Care Provider, Referrin g Provider Active Dr. iMng Gonzalez MD Attending Provider Active Team Status: [...] MD Primary Care Provider Active Gisella Brown MANAGER UI, MANAGER UI-C Attending Provider Active Team Status: Inactive Member [...] BE BASED ON THE PRIMARY CLINICAL RECORDS. [facility]. provides no warranty or guarantee of the accuracy or completeness of information in this document.
[2025-03-02] MEDS: Nitroglycerin Oint 1 INCH PACKET TD (02:39)
[2025-03-02] MEDS: Lactated Ringers 1,000 ML 150 ML IV (03:20)
[2025-03-02] MEDS: Aspirin E.C. 81 MG Tablet PO (03:31)
[2025-03-02 03:36] LABS: Troponin T High Sens 4 HR 338 ng/L (<=22)
--- NOTE | 2025-03-02 07:34 | PCM.PN.HOSP ---
Reason for Visit Reason for Visit: Diagnoses Non-ST elevation (NSTEMI) myocardial infarction (03/02/25) Subjective Subjective Patient with no acute events overnight per self and per nursing report since admission, notes no recurrent chest discomfort seated upright in the PCU bedside chair. Patient's son is present and he is laughing and joking with his son. He notes he feels some shortness of breath but this is chronic baseline and no different. Discussed plan of care which included continued very judicious hydration given acute kidney injury presentation and deferral of any concept of cardiac catheterization this time to avoid any worsening renal function with possible future cardiac catheterization Wednesday versus outpatient per discussion with cardiology to which patient and family are amenable. Patient denies fevers, chills, nausea, emesis, abdominal pain. Objective Data Objective Data Vital Signs: Vital Signs Temp Pulse Resp BP Pulse Ox O2 Del Method 98 F 81 14 146/67 H 99 Room Air 03/02/25 03:24 03/02/25 03:24 03/02/25 03:24 03/02/25 03:24 03/02/25 03:24 03/02/25 03:24 Oxygen Delivery Method Room Air Weight: 270 lb Body Mass Index (BMI) 37.8 Intake & Output: Intake and Output for Last 24 Hours 02/28/25 03/01/25 03/02/25 23:59 23:59 23:59 Intake Total 0 / 0 Output Total 200 / 200 Balance 0 / 0 -200 / -200 Lab / Micro Data 03/02/25 08:30 03/02/25 08:30 Labs: Laboratory Results - last 24 hr 03/01/25 22:15: WBC 10.8, RBC 4.36 L, Hgb 12.8 L, Hct 38.9 L, MCV 89.2, MCH 29.4, MCHC 32.9, RDW Std Deviation 42.6, RDW Coeff of Robert 13.1, Plt Count 272, MPV 10.8, Immature Gran % (Auto) 0.600, Neut % (Auto) 67.6, Lymph % (Auto) 16.1 L, [place] % (Auto) 12.2 H, Eos % (Auto) 3.1, Baso % (Auto) 0.4, Absolute Neuts (auto) 7.3, Absolute Lymphs (auto) 1.74, Nucleated RBC % 0, PT 13.1, INR 1.0, APTT 28.1, Sodium 140, Potassium 4.6, Chloride 103, Carbon Dioxide 21.0, Anion Gap 16 H, BUN 75 H, Creatinine 1.91 H, Estim Creat Clear Calc 31.21 L, Est GFR (MDRD) Non-Af 34 L, BUN/Creatinine Ratio 39.5 H, Glucose 174 H, Calcium 9.7, Magnesium 2.7 H, Troponin T High Sens 51 H D, NT pro BNP II 2715 H 03/02/25 00:57: Troponin T Hi Sens 2 Hr 233 H* 03/02/25 02:43: Troponin T Hi Sens 4Hr 338 H* 03/02/25 06:23: POC Glucose 122 H Radiography Diagnostic Testing: Radiology Impression Chest X-Ray 03/01/25 23:19 IMPRESSION: No evidence of acute cardiopulmonary disease. Ancillary findings noted above. Reading Location: [facility] Physical Exam Narrative Physical Examination: General: Awake, alert, oriented x 3 and cooperative, seated upright in the PCU bedside chair, denies any recurrent chest discomfort, notes he has chronic dyspnea and this is unchanged. Skin: Normal color, normal turgor, no icterus, no cyanosis except occasional stage ecchymoses, abrasion. HEENT: AT/NC, EOMI, PERRLA, MMM. Lungs: Mildly diminished, greater bases, appropriate effort, no rales, ronchi or wheezing. Heart: Regular rate and rhythm; no gallop, rub audible. Abdomen: Soft, obese, NTTP, normal BS, no obvious distention. Extremities: No cyanosis, no clubbing, BL ankle to distal lorenzana edema but marked pitting. Neurological: Patient awake, alert, oriented as noted, cognitive function intact; pupils equally reactive to light and accommodation, cranial nerves grossly normal, moving all 4 extremities, no focal deficits, strength mildly to moderately globally decreased. Psychiatric: Affect appears normal, no acute evidence of depressive or anxiety feelings. Assessment & Plan Assessment/Plan (1) NSTEMI, initial episode of care: PLAN: Plan The patient is an 84 y/o M w/ PMHx: Nonobstructive CAD, HFpEF, HTN, HLD, Chronic anemia, Diabetes mellitus type II, BPH with obstructive pathology, GERD, Obesity, CKD stage II per GFR trending who presents to the [facility] ED on 03/02/25 with history of onset chest pain. #1. Chest Pain w/ Acute NSTEMI with concern for type I: EKG in ED w/ sinus rhythm with no acute evidence of ischemia, CXR w/ no acute cardiopulmonary findings. Trop elevated, 51 however increased to 233. Patient admitted to PCU, maintain on monitor, cardiac enzyme trended, initiated to maintain on heparin drip. Continued on medical therapy including aspirin, statin, metoprolol, holding Lasix and lisinopril given DARIAN temporarily. Magnesium 2.7. FLP with triglycerides 101, total cholesterol 107, LDL 42, VLDL 20, HDL 45. ECHO requested. Cardiology consulted with recommendation for continued monitoring and judicious hydration given acute kidney injury presentation with possible cardiac catheterization Wednesday versus outpatient given patient is currently clinically improved without chest pain and most recent cardiac catheterization performed 11/2023 with a 30% lesion in 2 vessels at that time. #2. Acute kidney injury on CKD stage II per GFR trending: Secondary to suspected prerenal etiology secondary to overdiuresis on home Lasix. Admission BUN/Cr 75/1.91, prior baseline creatinine noted to be approximately 1.1. Will continue to judiciously hydrate, hold nephrotoxic medications. 03/02/2020 5 repeat BUN/creatinine 63/1.41. Temporarily holding Lasix and lisinopril, monitor urine output. Will continue to trend. #3. Chronic normocytic anemia: Admission hemoglobin 12.8, MCV 89.2, baseline hemoglobin primarily 10-12 range, continue to trend. 03/02/2025 hemoglobin 11.3, MCV 89.1. #4. Chronic HFpEF: Most recent echo noted 02/08 with EF 55%, stage I diastolic dysfunction with no other acute concerning findings. Judiciously hydrating as noted, chest x-ray with no overt failure findings, BNP is elevated but decreased from previous trending, will monitor for overload, continue aspirin, statin, metoprolol, holding lisinopril, Lasix given acute kidney injury, add back once clinic appropriate. #5. Nonobstructive CAD: Continue aspirin, statin, metoprolol, holding lisinopril given acute kidney injury as noted. #6. Hypertension: Continue home regimen including metoprolol, PRN hydralazine. Temporally holding Lasix and lisinopril given DARIAN, add back once appropriate. #7. Hyperlipidemia: Continue home statin regimen. AM FLP with triglycerides 101, total cholesterol 107, LDL 42, VLDL 20, HDL 45. #8. Diabetes mellitus type II: Hold oral home regimen, 02/26 hemoglobin A1c 6.7%, ADA diet, accu checks w/ ISS. #9. BPH with obstructive pathology: Will continue patient on Flomax, monitor for retention. #10. Obesity: Weight loss and lifestyle changes encouraged. #11. GERD: Continue patient on famotidine regimen. #12. DVT prophylaxis: Heparin drip. #13. CODE STATUS: Full Code. Charges/Coding Visit Charges Inpatient E&M: 08491 Subs Hosp L2
[2025-03-02] MEDS: Metoprolol(XL)Succ 50 MG Tablet PO (08:09)
[2025-03-02] MEDS: 0.9% Saline Lock 10 ML Syringe IV (08:17)
--- NOTE | 2025-03-02 08:37 | PCM.CONS.C ---
Assessment & Plan Assessment/Plan (1) Renal insufficiency: PLAN: IV fluid and diuresis holiday Likely prerenal due to dehydration (2) Congestive heart failure: PLAN: Chronic compensated HFpEF Diuresis holiday Start spironolactone 12.5 once kidney function is back to normal (3) Hyperlipidemia: PLAN: Continue with rosuvastatin 20 mg daily (4) NSTEMI, initial episode of care: PLAN: Continue with aspirin 81 mg daily and rosuvastatin 20 mg daily. Cath from November 2023 showed nonobstructive CAD. Chest pain is likely due to microvascular dysfunction as his chest pain has been intermittent since his last cath. Continue with beta-kalani Restart NEVILLE inhibitor once DARIAN resolves If he continues to have chest pain then cath on Wednesday once DARIAN resolves. HPI Consult Data Date of Consult: 03/02/25 HPI Narrative HPI Narrative: EULALIO GIRON, is a 84 M with a PMH of HFpEF, hypertension, hyperlipidemia and type 2 diabetes mellitus who presented to [facility] ED on 03/02/2025 with chest pain. Patient had cath on November 29, 2023 which showed mild non obstructive disease. Echo in January showed preserved ejection fraction with stage I diastolic dysfunction. He has had intermittent episodes of chest pain. He has been having chest pain before his cath last year and it has been intermittent even after his cath. His chest pain is not exertional. He has chest pain during night. He has orthopnea and PND. His Lasix was increased to 80 mg daily and he has lost more than 25 pounds over the last 2 months. On arrival to the ED he was mildly hypertensive to the 150s systolic, creatinine 1.91 (baseline around 1.1). troponin trend 51 > 233. BNP elevated at 2715, Chest x-ray was unremarkable with no volume overload noted. EKG showed normal sinus rhythm with no ST changes. [facility] Medical History Thyroid nodule Palpitations Crohn disease Arthritis Back pain Syncope Abdominal pain Shortness of breath on exertion History of pain when walking History of edema Chest pain History of rheumatic fever Home Medications ?Medication ?Instructions ?Recorded ?Last Taken ?Type aspirin 81 mg tablet,delayed 81 mg PO BID prevention 06/07/24 02/28/25 20:00 History release (Adult Aspirin Regimen) metoprolol succinate 50 mg 50 mg PO DAILY #90 TABLETS 08/18/24 01/05/25 Rx tablet,extended release 24 hr lisinopril 20 mg tablet 20 mg PO DAILY #90 TABLETS 09/12/24 01/04/25 Rx acetaminophen 500 mg tablet 1,000 mg PO Q6H PRN fever or pain 01/05/25 01/05/25 History cholecalciferol (vitamin D3) 25 50 mcg PO DAILY vitamin 01/05/25 02/28/25 08:27 History mcg (1,000 unit) capsule (Vitamin D3) magnesium oxide 400 mg (241.3 mg 400 mg PO TID 01/05/25 01/05/25 History magnesium) tablet meloxicam 7.5 mg tablet 7.5 mg PO BID 01/05/25 01/05/25 History metformin 500 mg tablet,extended 500 mg PO QHS 01/05/25 01/04/25 History release 24 hr rosuvastatin 20 mg tablet 20 mg PO QHS 01/05/25 01/04/25 History tamsulosin 0.4 mg capsule 0.4 mg PO DAILY 01/05/25 01/05/25 History famotidine 20 mg tablet 20 mg PO DAILY 03/02/25 Unknown History furosemide 40 mg tablet (Lasix) 80 mg PO DAILY 03/02/25 Unknown History Allergy/AdvReac Type Severity Reaction Status Date / Time Penicillins Allergy Rash Verified 03/01/25 22:23 Family History Sister Cancer Heart disease Mother Brain tumor Father Myocardial infarction Son Heart disease Other Diabetes Surgical History History of cholecystectomy Hx of colonoscopy Hx of total hip arthroplasty Hx of hernia repair Social History Smoking Status: Never smoker alcohol intake: current alcohol intake frequency: holidays/special occasions only Risk Stratification Risk Stratification Applicable: Yes Age >/= 65: Yes >/= 3 CAD Risk Factors (HTN, HLD, DM, family hx of CAD, or current smoker): Yes Aspirin Use in the Past 7 Days: Yes Severe Angina (>/= episodes in 24 hours): No EKG ST Changes >/= 0.5mm: No Positive Cardiac Marker: Yes AMY Risk Stratification Score: 4 AMY % Risk: 20% Risk Objective Data Vital Signs: Vital Signs Temp Pulse Resp BP Pulse Ox O2 Del Method 97.8 F 78 16 127/58 H 98 Room Air 03/02/25 08:05 03/02/25 08:09 03/02/25 08:05 03/02/25 08:09 03/02/25 08:05 03/02/25 08:05 Oxygen Delivery Method Room Air Weight: 270 lb Body Mass Index (BMI) 37.8 Intake & Output: Intake and Output for Last 24 Hours 02/28/25 03/01/25 03/02/25 23:59 23:59 23:59 Intake Total 0 / 0 787.5 / 787.5 Output Total 200 / 200 Balance 0 / 0 587.5 / 587.5 Lab / Micro Data 03/02/25 08:30 03/02/25 08:30 Labs: Laboratory Results - last 24 hr 03/01/25 22:15: WBC 10.8, RBC 4.36 L, Hgb 12.8 L, Hct 38.9 L, MCV 89.2, MCH 29.4, MCHC 32.9, RDW Std Deviation 42.6, RDW Coeff of Robert 13.1, Plt Count 272, MPV 10.8, Immature Gran % (Auto) 0.600, Neut % (Auto) 67.6, Lymph % (Auto) 16.1 L, [place] % (Auto) 12.2 H, Eos % (Auto) 3.1, Baso % (Auto) 0.4, Absolute Neuts (auto) 7.3, Absolute Lymphs (auto) 1.74, Nucleated RBC % 0, PT 13.1, INR 1.0, APTT 28.1, Sodium 140, Potassium 4.6, Chloride 103, Carbon Dioxide 21.0, Anion Gap 16 H, BUN 75 H, Creatinine 1.91 H, Estim Creat Clear Calc 31.21 L, Est GFR (MDRD) Non-Af 34 L, BUN/Creatinine Ratio 39.5 H, Glucose 174 H, Calcium 9.7, Magnesium 2.7 H, Troponin T High Sens 51 H D, NT pro BNP II 2715 H 03/02/25 00:57: Troponin T Hi Sens 2 Hr 233 H* 03/02/25 02:43: Troponin T Hi Sens 4Hr 338 H* 03/02/25 06:23: POC Glucose 122 H Cardiology Labs/Tests 03/01/25 22:15: WBC 10.8, RBC 4.36 L, Hgb 12.8 L, Hct 38.9 L, MCV 89.2, MCH 29.4, MCHC 32.9, Plt Count 272, MPV 10.8, Immature Gran % (Auto) 0.600, Neut % (Auto) 67.6, Lymph % (Auto) 16.1 L, [place] % (Auto) 12.2 H, Eos % (Auto) 3.1, Baso % (Auto) 0.4, Absolute Neuts (auto) 7.3, Nucleated RBC % 0, PT 13.1, INR 1.0, APTT 28.1, Sodium 140, Potassium 4.6, Chloride 103, Carbon Dioxide 21.0, Anion Gap 16 H, BUN 75 H, Creatinine 1.91 H, Est GFR (MDRD) Non-Af 34 L, BUN/Creatinine Ratio 39.5 H, Glucose 174 H, Calcium 9.7, Magnesium 2.7 H Rhythm: EKG: ECHO: Stress Test: Cardiac Cath: PCI: CT Surgery: Holter monitor: EPS: PPM: CXR: Chest CT Scan: Radiography Diagnostic Testing: Radiology Impression Chest X-Ray 03/01/25 23:19 IMPRESSION: No evidence of acute cardiopulmonary disease. Ancillary findings noted above. Reading Location: [id number]
[2025-03-02 08:44] LABS: Hematocrit 34.2 % (40-54); Hemoglobin 11.3 g/dL (13.0-16.5); Mean Corp Hgb Conc 33.0 g/dL (32-36); Mean Corpuscular Volume 89.1 fL (80-94); Mean Platelet Vol. 9.5 fl (6.2-12.0); Platelet Count 208 K/mm3 (150-450); RBC Distribution Width CV 12.9 % (11.6-14.6); RBC Distribution Width SD 41.6 fl (35.1-43.9); Red Blood Count 3.84 M/mm3 (4.6-6.2); White Blood Count 7.3 K/mm3 (4.4-11.0)
[2025-03-02 09:00] LABS: Partial Thromboplast Time 52.7 Seconds (24.1-36.2)
[2025-03-02 09:13] LABS: Anion Gap 9 (5-15); BUN 63 mg/dL (4-19); BUN/Creat Ratio 45.0 RATIO (10-20); Calcium,Total 9.2 mg/dL (7.6-11.0); Carbon Dioxide 23.8 mmol/L (21.0-32.0); Chloride 108 mmol/L (98-108); Estimated Creatinine Clearance 52.87 ml/min (50-250); Glucose 127 mg/dL (70-99); Potassium 4.5 mmol/L (3.3-5.1)
[2025-03-02 09:23] LABS: Cholesterol 107 mg/dL (<=200); Low Density Lipoprotein Calc. 42 mg/dL; Triglycerides 101 mg/dL; Very Low Density Lipoprotein 20 mg/dL (5-40); cholesterol:hdl ratio screen 2.40
[2025-03-02] MEDS: Cholecalciferol (VIT D3) 25 MCG TABLET (1,000 UNITS) 50 MCG PO (10:07)
[2025-03-02] MEDS: 0.9% Normal Saline (1000mL) 1,000 ML 75 ML IV ×2 (10:17→23:10)
--- NOTE | 2025-03-02 15:47 | CASEMGMT ---
OLAF MCCLELLAND Assessment Face to Face with patient for initial transition planning/care coordination assessment. RN STAS introduced self and role at [facility], pt voices understanding. Pt is A&Ox4 and is resting comfortably in bed and is calm. Care providers, pharmacy, and demographics verified. Admitting dx:NSTEMI LACE Strata: PCP: Dejuan Sanders Specialists: Uriel SHIELDS (Pulm), Abigail Torres (Endocrinology) Preferred Pharmacy: [facility] Insurance: [facility] A/B, [facility] Supp with Part D Prescription Benefit: Yes LNOK: Miladis Gannon (Son) Living Arrangements: Pt lives alone in a ranch style home with 2 steps to enter ADLs/IADLs: Indep. 6-click score is 22. No therapy ordered. Denies concerns Transportation: Self, friends. denies concerns DME: Access to a FWW, Cane, BP Machine. Noted that the H&P reports that the pt is a type II diabetic. Pt states that he does not have any equipment to check his BS at home. CM to provide the pt with an Rx HHC/SNF: reports HH history x8 years ago but cannot recall the name of the agency Pt?s goal: home Plan: Home with BGM and supplies Rx, follow for anticoag. Pt also states that he has a follow up appt with Dr Trevino next month for an OP sleep study. Pt also plans to follow up with the heart group as an OP. Per Dr. Stephens, Cardio said likely Wednesday Cath depending on renal fx. Anticipate pt will be admitted through the weekend. Pt denies further questions or concerns at this time. Report given to ELECTRICAL INSTALLER CM. Chris Pulliam RN, CM
--- NOTE | 2025-03-02 17:11 | EKG12_ITS ---
Test Reason : CP Blood Pressure : */* mmHG Vent. Rate : 55 BPM Atrial Rate : 55 BPM P-R Int : 204 ms QRS Dur : 108 ms QT Int : 494 ms P-R-T Axes : 110 -17 41 degrees QTcB Int : 472 ms Sinus bradycardia Lateral infarct (cited on or before 05-Jan-2025) Possible Inferior infarct (cited on or before 27-Nov-2021) Abnormal ECG When compared with ECG of 02-Mar-2025 05:41, No significant change was found Confirmed by MD WERNER, JANEY ([id number]), photograph editor MELYSSA GÓMEZ ([id number]) on 03/06/2025 10:59:01 AM Referred By: Confirmed By: JANEY CALDERA MD
--- NOTE | 2025-03-02 17:18 | NURSING ---
1530 aPTT late as lab informed this RN that unable to draw x2, awaited tube & label before drawing off PIV.
[2025-03-02 17:32] LABS: Partial Thromboplast Time 56.3 Seconds (24.1-36.2)
[2025-03-02 23:38] LABS: Partial Thromboplast Time 54.1 Seconds (24.1-36.2)
[2025-03-03] VITALS (10 sets, daily range): BP systolic 103–154; BP diastolic 47–87; PULSE 56–102; RESP 16–18; TEMP 36.4–36.8; O2SAT 95–100; BMI 38.7
--- NOTE | 2025-03-03 01:59 | EKG12_ITS ---
Test Reason : CP Blood Pressure : */* mmHG Vent. Rate : 98 BPM Atrial Rate : 98 BPM P-R Int : 202 ms QRS Dur : 108 ms QT Int : 338 ms P-R-T Axes : 97 -30 83 degrees QTcB Int : 431 ms Normal sinus rhythm Left axis deviation Inferior-posterior infarct , age undetermined Abnormal ECG When compared with ECG of 02-Mar-2025 17:14, MANUAL COMPARISON REQUIRED DATA IS UNCONFIRMED Confirmed by MD WERNER, JANEY ([id number]), website/blog editor MELYSSA GÓMEZ ([id number]) on 03/06/2025 10:58:42 AM Referred By: Confirmed By: JANEY CALDERA MD
[2025-03-03] MEDS: Nitroglycerin SL (ED/IMG/CATH) 0.4 MG TABLET SL ×2 (02:12→02:42)
--- NOTE | 2025-03-03 02:15 | NURSING ---
pt called out at 0200 and stated he was experiencing chest pain. PT stated he was sleeping and woke up to pee, and after he peed, he started to experience chest pain that he rates 9/10 stating it is pressure on his chest and is also experiencing left shoulder pain. EKG was ordered and done, EKG report sent to and he stated no stemi, nitro x1 given at this point. vitals checked. 2L NC O2 applied due to pt stating he is short of breathe- SPO2 at 100% on RA
[2025-03-03] MEDS: HEPARIN/D5w 25,000 UNITS 25,000 UNITS/250 ML IV.SOLN. 11 UNITS CONT INF ×2 (03:10→21:51)
[2025-03-03 06:14] LABS: Partial Thromboplast Time 63.2 Seconds (24.1-36.2)
--- NOTE | 2025-03-03 07:09 | PN.HOSP_ITS ---
Reason for Visit Reason for Visit: Diagnoses Hyperlipidemia, unspecified (03/02/25) Non-ST elevation (NSTEMI) myocardial infarction (03/02/25) Heart failure, unspecified (03/02/25) Disorder of kidney and ureter, unspecified (03/02/25) Subjective Subjective Patient overnight with recurrent episode of chest discomfort rated 10 out of 10 in severity, abated with sublingual nitroglycerin x 2 with follow-up EKG with no acute concerning evidence of ischemia. Patient had also 1 episode 03/02/2025 earlier in the day although less severe he notes and EKG at that time with no acute concerning findings. Discussed plan of care which included awaiting a.m. labs for renal function with continue judicious hydration and given ongoing pain really necessitates if renal function appropriate 03/05/2025 cardiac catheterization to which she is amenable. Patient denies fevers, chills, nausea, emesis, abdominal pain, dyspnea. Objective Data Objective Data Vital Signs: Vital Signs Temp Pulse Resp BP Pulse Ox O2 Del Method O2 Flow Rate 98.2 F 85 16 136/68 H 99 Nasal Cannula 2 03/03/25 02:41 03/03/25 02:42 03/03/25 02:41 03/03/25 02:42 03/03/25 02:41 03/03/25 02:41 03/03/25 02:41 Oxygen Flow Rate (L/min) 2 Oxygen Delivery Method Nasal Cannula Weight: 276 lb 14.409 oz Body Mass Index (BMI) 38.7 Intake & Output: Intake and Output for Last 24 Hours 03/01/25 03/02/25 03/03/25 23:59 23:59 23:59 Intake Total 0 / 0 2888.25 / 2888.25 74.61 / 74.61 Output Total 200 / 200 Balance 0 / 0 2688.25 / 2688.25 74.61 / 74.61 Lab / Micro Data 03/02/25 08:30 03/02/25 08:30 Labs: Laboratory Results - last 24 hr 03/02/25 08:30: WBC 7.3, RBC 3.84 L, Hgb 11.3 L, Hct 34.2 L, MCV 89.1, MCH 29.4, MCHC 33.0, RDW Std Deviation 41.6, RDW Coeff of Robert 12.9, Plt Count 208, MPV 9.5, APTT 52.7 H, Sodium 141, Potassium 4.5, Chloride 108, Carbon Dioxide 23.8, Anion Gap 9, BUN 63 H, Creatinine 1.41 H, Estim Creat Clear Calc 52.87, Est GFR (MDRD) Non-Af 49 L, BUN/Creatinine Ratio 45.0 H, Glucose 127 H, Calcium 9.2, Triglycerides 101, Cholesterol 107, LDL Cholesterol, Calc 42, VLDL Cholesterol 20, HDL Cholesterol 45, Cholesterol/HDL Ratio 2.40 03/02/25 11:37: POC Glucose 136 H 03/02/25 17:04: POC Glucose 120 H 03/02/25 17:05: APTT 56.3 H 03/02/25 21:33: POC Glucose 149 H 03/02/25 23:15: APTT 54.1 H 03/03/25 05:35: APTT 63.2 H 03/03/25 06:40: POC Glucose 121 H Radiography Diagnostic Testing: Radiology Impression Echocardiogram 03/02/25 02:04 Interpretation Summary The LV ejection fraction is 55 %. Mild to moderate global right ventricular systolic dysfunction. Ordering Physician: Lewis Pat Referring Physician: Dejuan Sanders Performed By: Theodora Falcon and Student Physical Exam Narrative Physical Examination: General: Awake, alert, oriented x 3 and cooperative, seated upright in the PCU bedside chair, more fatigued than day prior, notes he did not sleep well because of chest discomfort episode, currently does not have any chest pain. Skin: Normal color, normal turgor, no icterus, no cyanosis except occasional stage ecchymoses, abrasion. HEENT: AT/NC, EOMI, PERRLA, MMM. Lungs: Mildly diminished, greater bases, appropriate effort, no rales, ronchi or wheezing. Heart: Regular rate and rhythm; no gallop, rub audible. Abdomen: Soft, obese, NTTP, normal BS. Extremities: No cyanosis, no clubbing, BL ankle to distal lorenzana edema but marked pitting. Neurological: Patient awake, alert, oriented as noted, cognitive function intact; pupils equally reactive to light and accommodation, cranial nerves grossly normal, moving all 4 extremities, no focal deficits, strength moderately globally decreased. Psychiatric: Affect appears more fatigued, no acute evidence of depressive or anxiety feelings. Assessment & Plan Assessment/Plan (1) NSTEMI, initial episode of care: PLAN: Plan The patient is an 84 y/o M w/ PMHx: Nonobstructive CAD, HFpEF, HTN, HLD, Chronic anemia, Diabetes mellitus type II, BPH with obstructive pathology, GERD, Obesity, CKD stage II per GFR trending who presents to the [facility] ED on 03/02/25 with history of onset chest pain. #1. Chest Pain w/ Acute NSTEMI with concern for type I: EKG in ED w/ sinus rhythm with no acute evidence of ischemia, CXR w/ no acute cardiopulmonary findings. Trop elevated, 51 however increased to 233. Patient admitted to PCU, maintain on monitor, cardiac enzyme trended, initiated to maintain on heparin drip. Continued on medical therapy including aspirin, statin, metoprolol, holding Lasix and lisinopril given DARIAN temporarily. Magnesium 2.7. FLP with triglycerides 101, total cholesterol 107, LDL 42, VLDL 20, HDL 45. 03/02/2025 ECHO LVEF 55%, mild to moderate global RV systolic dysfunction. Cardiology consulted with recommendation for continued monitoring and judicious hydration given acute kidney injury presentation with possible cardiac catheterization Wednesday versus outpatient given patient is currently clinically improved without chest pain and most recent cardiac catheterization performed 11/2023 with a 30% lesion in 2 vessels at that time. 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 Given these recurrent events 03/03/[address] scheduled nitroglycerin topical. Given ongoing events 03/03/2025 with expected plan for likely 03/05/2025 cardiac catheterization. #2. Acute kidney injury on CKD stage II per GFR trending: Secondary to suspected prerenal etiology secondary to overdiuresis on home Lasix. Admission BUN/Cr 75/1.91, prior baseline creatinine noted to be approximately 1.1. Will continue to judiciously hydrate, hold nephrotoxic medications. Temporarily holding Lasix and lisinopril, monitor urine output. 03/02/25 repeat BUN/creatinine 63/1.41--> awaiting 03/03/2025 BUN/creatinine. #3. Chronic normocytic anemia: Admission hemoglobin 12.8, MCV 89.2, baseline hemoglobin primarily 10-12 range, continue to trend. 03/02/2025 hemoglobin 11.3, MCV 89.1-->awaiting 03/03/25 Hgb/MCV. #4. Chronic HFpEF: Most recent echo noted 02/08 with EF 55%, stage I diastolic dysfunction with no other acute concerning findings. Judiciously hydrating as noted, chest x-ray with no overt failure findings, BNP is elevated but decreased from previous trending, will monitor for overload, continue aspirin, statin, metoprolol, holding lisinopril, Lasix given acute kidney injury, add back once clinic appropriate. As noted above, awaiting 03/03/25 CBC/renal function repeat. #5. Nonobstructive CAD: Continue aspirin, statin, metoprolol, holding lisinopril given acute kidney injury as noted. #6. Hypertension: Continue home regimen including metoprolol, PRN hydralazine. Temporally holding Lasix and lisinopril given DARIAN, add back once appropriate. #7. Hyperlipidemia: Continue home statin regimen. FLP with triglycerides 101, total cholesterol 107, LDL 42, VLDL 20, HDL 45. #8. Diabetes mellitus type II: Hold oral home regimen, 02/26 hemoglobin A1c 6.7%, ADA diet, accu checks w/ ISS. #9. BPH with obstructive pathology: Will continue patient on Flomax, monitor for retention. #10. Obesity: Weight loss and lifestyle changes encouraged. #11. GERD: Continue patient on famotidine regimen. #12. DVT prophylaxis: Heparin drip. #13. CODE STATUS: Full Code. Charges/Coding Visit Charges Inpatient E&M: 90305 Subs Hosp L2
[2025-03-03] MEDS: 0.9% Saline Lock 10 ML Syringe IV ×2 (09:09→21:52)
[2025-03-03] MEDS: Cholecalciferol (VIT D3) 25 MCG TABLET (1,000 UNITS) 50 MCG PO (09:09)
[2025-03-03] MEDS: Aspirin E.C. 81 MG Tablet PO (09:09)
[2025-03-03] MEDS: Nitroglycerin Oint 1 INCH PACKET TD ×3 (09:34→17:33)
[2025-03-03 10:25] LABS: Hematocrit 31.8 % (40-54); Hemoglobin 10.3 g/dL (13.0-16.5); Immature Granulocytes Count 0.040 X10^3/uL (0.0-0.0); Mean Corp Hgb Conc 32.4 g/dL (32-36); Mean Corpuscular Volume 90.1 fL (80-94); Mean Platelet Vol. 10.6 fl (6.2-12.0); NRBC Flagged by Analyzer 0 % (0-5); Platelet Count 191 K/mm3 (150-450); RBC Distribution Width CV 13.2 % (11.6-14.6); RBC Distribution Width SD 43.4 fl (35.1-43.9); Red Blood Count 3.53 M/mm3 (4.6-6.2); White Blood Count 7.5 K/mm3 (4.4-11.0)
[2025-03-03 11:06] LABS: AST(SGOT) 18 U/L (<=37); Alanine Aminotransfer ALT/SGPT 16 U/L (<=46); Albumin, Serum 3.3 g/dL (3.4-4.8); Alkaline Phosphatase 70 U/L (40-129); Anion Gap 9 (5-15); BUN 48 mg/dL (4-19); BUN/Creat Ratio 41.7 RATIO (10-20); Calcium,Total 8.9 mg/dL (7.6-11.0); Carbon Dioxide 20.5 mmol/L (21.0-32.0); Chloride 110 mmol/L (98-108); Estimated Creatinine Clearance 65.69 ml/min (50-250); Globulin 2.2 g/dL (2.2-4.2); Glucose 138 mg/dL (70-99); Potassium 4.7 mmol/L (3.3-5.1)
[2025-03-03 12:58] LABS: Partial Thromboplast Time 55.9 Seconds (24.1-36.2)
--- NOTE | 2025-03-03 14:13 | PCM.PN.CARD ---
Subjective Subjective Patient is doing well. He had an episode of chest pain overnight. He has been having PVCs. Patient has a strong family history of arrhythmogenic right ventricle cardiomyopathy dysplasia ARVCD. His son tested genetic positive for ARVD. His tested negative. He never got tested for ARVC. Objective Data Vital Signs: Vital Signs Temp Pulse Resp BP Pulse Ox O2 Del Method O2 Flow Rate 97.7 F L 68 16 103/47 L 98 Room Air 2 03/03/25 12:14 03/03/25 12:14 03/03/25 12:14 03/03/25 12:14 03/03/25 12:14 03/03/25 12:14 03/03/25 02:41 Oxygen Flow Rate (L/min) 2 Oxygen Delivery Method Room Air Weight: 276 lb 14.409 oz Body Mass Index (BMI) 38.7 Intake & Output: Intake and Output for Last 24 Hours 03/01/25 03/02/25 03/03/25 23:59 23:59 23:59 Intake Total 0 / 0 2888.25 / 2888.25 699.61 / 699.61 Output Total 200 / 200 Balance 0 / 0 2688.25 / 2688.25 699.61 / 699.61 Lab / Micro Data 03/03/25 05:35 03/03/25 05:35 Labs: Laboratory Results - last 24 hr 03/02/25 17:04: POC Glucose 120 H 03/02/25 17:05: APTT 56.3 H 03/02/25 21:33: POC Glucose 149 H 03/02/25 23:15: APTT 54.1 H 03/03/25 05:35: WBC 7.5, RBC 3.53 L, Hgb 10.3 L, Hct 31.8 L, MCV 90.1, MCH 29.2, MCHC 32.4, RDW Std Deviation 43.4, RDW Coeff of Robert 13.2, Plt Count 191, MPV 10.6, Immature Gran % (Auto) 0.500, Neut % (Auto) 73.5 H, Lymph % (Auto) 11.7 L, [place] % (Auto) 9.2, Eos % (Auto) 4.7, Baso % (Auto) 0.4, Absolute Neuts (auto) 5.5, Absolute Lymphs (auto) 0.88, Nucleated RBC % 0, APTT 63.2 H, Sodium 140, Potassium 4.7, Chloride 110 H, Carbon Dioxide 20.5 L, Anion Gap 9, BUN 48 H, Creatinine 1.15, Estim Creat Clear Calc 65.69, Est GFR (MDRD) Non-Af 63, BUN/Creatinine Ratio 41.7 H, Glucose 138 H, Calcium 8.9, Total Bilirubin 0.33, AST 18, ALT 16, Alkaline Phosphatase 70, Total Protein 5.5 L, Albumin 3.3 L, Globulin 2.2, Albumin/Globulin Ratio 1.5 03/03/25 06:40: POC Glucose 121 H 03/03/25 12:12: APTT 55.9 H Cardiology Labs/Tests 03/02/25 17:05: APTT 56.3 H 03/02/25 23:15: APTT 54.1 H 03/03/25 05:35: WBC 7.5, RBC 3.53 L, Hgb 10.3 L, Hct 31.8 L, MCV 90.1, MCH 29.2, MCHC 32.4, Plt Count 191, MPV 10.6, Immature Gran % (Auto) 0.500, Neut % (Auto) 73.5 H, Lymph % (Auto) 11.7 L, [place] % (Auto) 9.2, Eos % (Auto) 4.7, Baso % (Auto) 0.4, Absolute Neuts (auto) 5.5, Nucleated RBC % 0, APTT 63.2 H, Sodium 140, Potassium 4.7, Chloride 110 H, Carbon Dioxide 20.5 L, Anion Gap 9, BUN 48 H, Creatinine 1.15, Est GFR (MDRD) Non-Af 63, BUN/Creatinine Ratio 41.7 H, Glucose 138 H, Calcium 8.9, Total Bilirubin 0.33 03/03/25 12:12: APTT 55.9 H Radiography Diagnostic Testing: Radiology Impression Echocardiogram 03/02/25 02:04 Interpretation Summary The LV ejection fraction is 55 %. Mild to moderate global right ventricular systolic dysfunction. Ordering Physician: Lewis Pat Referring Physician: Dejuan Sanders Performed By: Theodora Falcon and Student Physical Exam Const alert HEENT normocephalic Neck full ROM Chest inspection of chest normal Cardio regular rate Heart Sounds: S1 normal and S2 normal GI normal to inspection, nondistended, normoactive bowel sounds no CVA tenderness Extremity General Extremity: Negative for edema Assessment & Plan Assessment/Plan (1) NSTEMI, initial episode of care: PLAN: Continue with aspirin 81 mg daily and rosuvastatin 20 mg daily. Cath from November 2023 showed nonobstructive CAD. Chest pain is likely due to microvascular dysfunction as his chest pain has been intermittent since his last cath. Continue with beta-kalani Restart NEVILLE inhibitor If he continues to have chest pain then cath on Wednesday once DARIAN resolves. (2) RVF (right ventricular failure): PLAN: Given family history of ARVC. Discharged the patient with a monitor for 30 days. Cardiac MRI as an outpatient. Most recent echo showed mild to moderate RV dilatation with mild reduced RV dysfunction.
[2025-03-03 19:42] LABS: Partial Thromboplast Time 59.3 Seconds (24.1-36.2)
[2025-03-03] MEDS: Nitroglycerin Oint 1 INCH PACKET 0.5 INCH TD (23:54)
[2025-03-04] VITALS (20 sets, daily range): BP systolic 103–174; BP diastolic 45–98; PULSE 57–117; RESP 14–20; TEMP 36.4–37.2; O2SAT 96–100; BMI 38.7
--- NOTE | 2025-03-04 03:41 | EKG12_ITS ---
Test Reason : CP Blood Pressure : */* mmHG Vent. Rate : 116 BPM Atrial Rate : 116 BPM P-R Int : 240 ms QRS Dur : 104 ms QT Int : 308 ms P-R-T Axes : * -24 77 degrees QTcB Int : 428 ms Sinus tachycardia with 1st degree A-V block with Premature supraventricular complexes Cannot rule out Inferior infarct , age undetermined ST & T wave abnormality, consider anterior ischemia Abnormal ECG When compared with ECG of 03-Mar-2025 02:02, MANUAL COMPARISON REQUIRED DATA IS UNCONFIRMED Confirmed by MD WERNER, JANEY ([id number]), assistant film editor MELYSSA GÓMEZ ([id number]) on 03/06/2025 10:58:32 AM Referred By: Confirmed By: JANEY CALDERA MD
[2025-03-04] MEDS: 0.9% Saline Lock 10 ML Syringe IV ×3 (03:46→09:04)
[2025-03-04] MEDS: Lorazepam 2 MG/ML WCH Syringe 0.5 MG IV (04:25)
[2025-03-04] MEDS: Nitroglycerin Oint 1 INCH PACKET 0.5 INCH TD ×2 (05:57→17:58)
[2025-03-04 06:50] LABS: Hematocrit 32.4 % (40-54); Hemoglobin 10.5 g/dL (13.0-16.5); Immature Granulocytes Count 0.040 X10^3/uL (0.0-0.0); Mean Corp Hgb Conc 32.4 g/dL (32-36); Mean Corpuscular Volume 89.3 fL (80-94); Mean Platelet Vol. 10.1 fl (6.2-12.0); NRBC Flagged by Analyzer 0 % (0-5); Partial Thromboplast Time 60.5 Seconds (24.1-36.2); Platelet Count 199 K/mm3 (150-450); RBC Distribution Width CV 13.0 % (11.6-14.6); RBC Distribution Width SD 42.7 fl (35.1-43.9); Red Blood Count 3.63 M/mm3 (4.6-6.2); White Blood Count 7.1 K/mm3 (4.4-11.0)
[2025-03-04 07:06] LABS: AST(SGOT) 18 U/L (<=37); Alanine Aminotransfer ALT/SGPT 15 U/L (<=46); Albumin, Serum 3.4 g/dL (3.4-4.8); Alkaline Phosphatase 74 U/L (40-129); Anion Gap 9 (5-15); BUN 34 mg/dL (4-19); BUN/Creat Ratio 33.9 RATIO (10-20); Calcium,Total 9.1 mg/dL (7.6-11.0); Carbon Dioxide 20.1 mmol/L (21.0-32.0); Chloride 109 mmol/L (98-108); Estimated Creatinine Clearance 74.82 ml/min (50-250); Globulin 2.3 g/dL (2.2-4.2); Glucose 147 mg/dL (70-99); Potassium 4.4 mmol/L (3.3-5.1)
--- NOTE | 2025-03-04 07:07 | PCM.PN.HOSP ---
Reason for Visit Reason for Visit: Diagnoses Hyperlipidemia, unspecified (03/02/25) Non-ST elevation (NSTEMI) myocardial infarction (03/02/25) Right heart failure, unspecified (03/02/25) Heart failure, unspecified (03/02/25) Disorder of kidney and ureter, unspecified (03/02/25) Subjective Subjective Patient overnight with recurrent episode of chest discomfort nearly as bad as the day prior, notes he did not rest well as a result, fatigued and laying in the PCU bed. Discussed case given recurrent ongoing pain with cardiology with plan for cardiac catheterization today. Patient denies having eaten or drank any water since the day prior in the evening. Patient denies any current chest discomfort at this time. Patient denies fevers, chills, nausea, emesis, abdominal pain, dyspnea. Objective Data Objective Data Vital Signs: Vital Signs Temp Pulse Resp BP Pulse Ox O2 Del Method O2 Flow Rate 98.0 F 92 16 123/67 H 97 Nasal Cannula 2 03/04/25 05:50 03/04/25 05:50 03/04/25 05:50 03/04/25 05:50 03/04/25 05:50 03/04/25 05:50 03/04/25 05:50 Oxygen Flow Rate (L/min) 2 Oxygen Delivery Method Nasal Cannula Weight: 277 lb 1.937 oz Body Mass Index (BMI) 38.7 Intake & Output: Intake and Output for Last 24 Hours 03/02/25 03/03/25 03/04/25 23:59 23:59 23:59 Intake Total 2888.25 / 2888.25 1750.47 / 1750.47 0 / 0 Output Total 200 / 200 300 / 300 500 / 500 Balance 2688.25 / 2688.25 1450.47 / 1450.47 -500 / -500 Lab / Micro Data 03/04/25 05:55 03/04/25 05:55 Labs: Laboratory Results - last 24 hr 03/03/25 05:35: WBC 7.5, RBC 3.53 L, Hgb 10.3 L, Hct 31.8 L, MCV 90.1, MCH 29.2, MCHC 32.4, RDW Std Deviation 43.4, RDW Coeff of Robert 13.2, Plt Count 191, MPV 10.6, Immature Gran % (Auto) 0.500, Neut % (Auto) 73.5 H, Lymph % (Auto) 11.7 L, [place] % (Auto) 9.2, Eos % (Auto) 4.7, Baso % (Auto) 0.4, Absolute Neuts (auto) 5.5, Absolute Lymphs (auto) 0.88, Nucleated RBC % 0, Sodium 140, Potassium 4.7, Chloride 110 H, Carbon Dioxide 20.5 L, Anion Gap 9, BUN 48 H, Creatinine 1.15, Estim Creat Clear Calc 65.69, Est GFR (MDRD) Non-Af 63, BUN/Creatinine Ratio 41.7 H, Glucose 138 H, Calcium 8.9, Total Bilirubin 0.33, AST 18, ALT 16, Alkaline Phosphatase 70, Total Protein 5.5 L, Albumin 3.3 L, Globulin 2.2, Albumin/Globulin Ratio 1.5 03/03/25 12:10: POC Glucose 121 H 03/03/25 12:12: APTT 55.9 H 03/03/25 16:09: POC Glucose 120 H 03/03/25 19:05: APTT 59.3 H 03/03/25 21:45: POC Glucose 148 H 03/04/25 05:55: WBC 7.1, RBC 3.63 L, Hgb 10.5 L, Hct 32.4 L, MCV 89.3, MCH 28.9, MCHC 32.4, RDW Std Deviation 42.7, RDW Coeff of Robert 13.0, Plt Count 199, MPV 10.1, Immature Gran % (Auto) 0.600, Neut % (Auto) 77.1 H, Lymph % (Auto) 9.9 L, [place] % (Auto) 8.3, Eos % (Auto) 3.5, Baso % (Auto) 0.6, Absolute Neuts (auto) 5.5, Absolute Lymphs (auto) 0.70 L, Nucleated RBC % 0, APTT 60.5 H, Sodium 138, Potassium 4.4, Chloride 109 H, Carbon Dioxide 20.1 L, Anion Gap 9, BUN 34 H, Creatinine 1.01, Estim Creat Clear Calc 74.82, Est GFR (MDRD) Non-Af 74, BUN/Creatinine Ratio 33.9 H, Glucose 147 H, Calcium 9.1, Total Bilirubin 0.41, AST 18, ALT 15, Alkaline Phosphatase 74, Total Protein 5.7 L, Albumin 3.4, Globulin 2.3, Albumin/Globulin Ratio 1.5 03/04/25 06:25: POC Glucose 129 H Physical Exam Narrative Physical Examination: General: Awake, alert, oriented x 3 and cooperative, laying in the PCU bed, fatigued, notes recurrent episode of chest discomfort, discussed with cardiology and discussed with patient with plan for cardiac catheterization today. Skin: Normal color, normal turgor, no icterus, no cyanosis except occasional stage ecchymoses, abrasion. HEENT: AT/NC, EOMI, PERRLA, MMM. Lungs: Mildly diminished, greater bases, appropriate effort, no rales, ronchi or wheezing. Heart: Regular rate and rhythm; no gallop, rub audible. Abdomen: Soft, obese, NTTP, normal BS. Extremities: No cyanosis, no clubbing, BL ankle to distal lorenzana edema but marked pitting. Neurological: Patient awake, alert, oriented as noted, cognitive function intact; pupils equally reactive to light and accommodation, cranial nerves grossly normal, moving all 4 extremities, no focal deficits, strength moderately globally decreased. Psychiatric: Affect appears fatigued, no acute evidence of depressive or anxiety feelings. Assessment & Plan Assessment/Plan (1) NSTEMI, initial episode of care: PLAN: Plan The patient is an 84 y/o M w/ PMHx: Nonobstructive CAD, HFpEF, HTN, HLD, Chronic anemia, Diabetes mellitus type II, BPH with obstructive pathology, GERD, Obesity, CKD stage II per GFR trending who presents to the [facility] ED on 03/02/25 with history of onset chest pain. #1. Chest Pain w/ Acute NSTEMI with concern for type I: EKG in ED w/ sinus rhythm with no acute evidence of ischemia, CXR w/ no acute cardiopulmonary findings. Trop elevated, 51 however increased to 233. Patient admitted to PCU, maintain on monitor, cardiac enzyme trended, initiated to maintain on heparin drip. Continued on medical therapy including aspirin, statin, metoprolol, holding Lasix and lisinopril given DARIAN temporarily. Magnesium 2.7. FLP with triglycerides 101, total cholesterol 107, LDL 42, VLDL 20, HDL 45. 03/02/2025 ECHO LVEF 55%, mild to moderate global RV systolic dysfunction. Cardiology consulted with recommendation for continued monitoring and judicious hydration given acute kidney injury presentation with possible cardiac catheterization Wednesday versus outpatient given patient is currently clinically improved without chest pain and most recent cardiac catheterization performed 11/2023 with a 30% lesion in 2 vessels at that time. 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 03/03/2025 placed schedule nitroglycerin topical. 03/04/2025 recurrent episodes of chest pain, plan for cardiac catheterization today. Will transition off of heparin drip with plan for chemoprophylaxis transition in the evening given planned cardiac catheterization as noted. #2. Acute kidney injury on CKD stage II per GFR trending: Secondary to suspected prerenal etiology secondary to overdiuresis on home Lasix. Admission BUN/Cr 75/1.91, prior baseline creatinine noted to be approximately 1.1. Judiciously hydrated, hold nephrotoxic medications. Temporarily held Lasix and lisinopril. 03/02/25 repeat BUN/creatinine 63/1.41--> 03/04/2025 BUN/creatinine 30/1.01, GFR 74. 03/04/2025 given resolution of previous acute kidney injury we will continue to monitor renal function and if repeat level 03/05/2025 remains appropriate consider readdition of these medications however will defer immediate addition given planned cardiac catheterization and use of contrast. #3. Chronic normocytic anemia: Admission hemoglobin 12.8, MCV 89.2, baseline hemoglobin primarily 10-12 range, continue to trend. 03/02/2025 hemoglobin 11.3, MCV 89.1--> 03/04/2025 hemoglobin 10.5, MCV 89.3. #4. Chronic HFpEF: Most recent echo noted 02/08 with EF 55%, stage I diastolic dysfunction with no other acute concerning findings. Judiciously hydrating as noted, chest x-ray with no overt failure findings, BNP is elevated but decreased from previous trending, continue monitoring for overload, continue aspirin, statin, metoprolol. Given resolution of DARIAN as noted potential readdition 03/05/2025 of lisinopril and Lasix however will hold on immediate radiation given plan for cardiac catheterization with contrast usage. #5. Nonobstructive CAD: Continue aspirin, statin, metoprolol, holding lisinopril given acute kidney injury as noted. #6. Hypertension: Continue home regimen including metoprolol, PRN hydralazine. Temporally holding Lasix and lisinopril given DARIAN, add back once appropriate. #7. Hyperlipidemia: Continue home statin regimen. FLP with triglycerides 101, total cholesterol 107, LDL 42, VLDL 20, HDL 45. #8. Diabetes mellitus type II: Hold oral home regimen, 02/26 hemoglobin A1c 6.7%, ADA diet, accu checks w/ ISS. #9. BPH with obstructive pathology: Will continue patient on Flomax, monitor for retention. #10. Obesity: Weight loss and lifestyle changes encouraged. #11. GERD: Continue patient on famotidine regimen. #12. DVT prophylaxis: Heparin drip with plan transition off given cardiac catheterization with transition to chemoprophylactic dosing in the evening. #13. CODE STATUS: Full Code. Charges/Coding Visit Charges Inpatient E&M: 29805 Subs Hosp L3
[2025-03-04] MEDS: Aspirin E.C. 81 MG Tablet PO (08:51)
[2025-03-04] MEDS: Metoprolol(XL)Succ 50 MG Tablet PO (08:52)
--- NOTE | 2025-03-04 12:05 | NURSING ---
This RN gave report to general laborer RN Oliver at this time.
--- NOTE | 2025-03-04 12:23 | PCM.PN.CARD ---
Objective Data Vital Signs: Vital Signs Temp Pulse Resp BP Pulse Ox O2 Del Method O2 Flow Rate 98.9 F 67 18 133/61 H 100 Room Air 2 03/04/25 11:15 03/04/25 11:15 03/04/25 11:15 03/04/25 11:15 03/04/25 11:15 03/04/25 11:15 03/04/25 05:50 Oxygen Flow Rate (L/min) 2 Oxygen Delivery Method Room Air Weight: 277 lb 1.937 oz Body Mass Index (BMI) 38.7 Intake & Output: Intake and Output for Last 24 Hours 03/02/25 03/03/25 03/04/25 23:59 23:59 23:59 Intake Total 2888.25 / 2888.25 1750.47 / 1750.47 0 / 0 Output Total 200 / 200 300 / 300 500 / 500 Balance 2688.25 / 2688.25 1450.47 / 1450.47 -500 / -500 Lab / Micro Data 03/04/25 05:55 03/04/25 05:55 Labs: Laboratory Results - last 24 hr 03/03/25 12:10: POC Glucose 121 H 03/03/25 12:12: APTT 55.9 H 03/03/25 16:09: POC Glucose 120 H 03/03/25 19:05: APTT 59.3 H 03/03/25 21:45: POC Glucose 148 H 03/04/25 05:55: WBC 7.1, RBC 3.63 L, Hgb 10.5 L, Hct 32.4 L, MCV 89.3, MCH 28.9, MCHC 32.4, RDW Std Deviation 42.7, RDW Coeff of Robert 13.0, Plt Count 199, MPV 10.1, Immature Gran % (Auto) 0.600, Neut % (Auto) 77.1 H, Lymph % (Auto) 9.9 L, [place] % (Auto) 8.3, Eos % (Auto) 3.5, Baso % (Auto) 0.6, Absolute Neuts (auto) 5.5, Absolute Lymphs (auto) 0.70 L, Nucleated RBC % 0, APTT 60.5 H, Sodium 138, Potassium 4.4, Chloride 109 H, Carbon Dioxide 20.1 L, Anion Gap 9, BUN 34 H, Creatinine 1.01, Estim Creat Clear Calc 74.82, Est GFR (MDRD) Non-Af 74, BUN/Creatinine Ratio 33.9 H, Glucose 147 H, Calcium 9.1, Total Bilirubin 0.41, AST 18, ALT 15, Alkaline Phosphatase 74, Total Protein 5.7 L, Albumin 3.4, Globulin 2.3, Albumin/Globulin Ratio 1.5 03/04/25 06:25: POC Glucose 129 H 03/04/25 11:13: POC Glucose 104 Cardiology Labs/Tests 03/03/25 12:12: APTT 55.9 H 03/03/25 19:05: APTT 59.3 H 03/04/25 05:55: WBC 7.1, RBC 3.63 L, Hgb 10.5 L, Hct 32.4 L, MCV 89.3, MCH 28.9, MCHC 32.4, Plt Count 199, MPV 10.1, Immature Gran % (Auto) 0.600, Neut % (Auto) 77.1 H, Lymph % (Auto) 9.9 L, [place] % (Auto) 8.3, Eos % (Auto) 3.5, Baso % (Auto) 0.6, Absolute Neuts (auto) 5.5, Nucleated RBC % 0, APTT 60.5 H, Sodium 138, Potassium 4.4, Chloride 109 H, Carbon Dioxide 20.1 L, Anion Gap 9, BUN 34 H, Creatinine 1.01, Est GFR (MDRD) Non-Af 74, BUN/Creatinine Ratio 33.9 H, Glucose 147 H, Calcium 9.1, Total Bilirubin 0.41 Physical Exam Const alert Eyes PERRL Neck full ROM Resp normal respiratory effort Cardio regular rate GI normal to inspection, nondistended, normoactive bowel sounds Back/Spine no CVA tenderness Skin no rashes or lesions noted Psych mental status grossly normal Assessment & Plan Assessment/Plan (1) NSTEMI, initial episode of care: PLAN: PLAN: Continue with aspirin 81 mg daily and rosuvastatin 20 mg daily. Cath from November 2023 showed nonobstructive CAD. Chest pain is likely due to microvascular dysfunction as his chest pain has been intermittent since his last cath. Continue with beta-kalani Restart NEVILLE inhibitor Given his refractory chest pain. Will plan on left heart cath today. If his left heart cath is normal recommend starting calcium channel kalani. (2) RVF (right ventricular failure): PLAN: Given family history of ARVC. Recommend discharging the patient with a monitor for 30 days. Cardiac MRI as an outpatient. Most recent echo showed mild to moderate RV dilatation with mild reduced RV dysfunction.
--- NOTE | 2025-03-04 13:39 | PCIREPORT_ITS ---
PCI Cardiac Cath Report PCI Report: DATE OF PROCEDURE: 03/04/2025 PROCEDURES PERFORMED: 1. Selective left and right coronary angiography. 2. Moderate conscious sedation 3. IFR to left circumflex Indications FOR PROCEDURE: NSTEMI Complications: NONE Specimen: NONE Access: Right Radial Artery Hemostasis: TR band DESCRIPTION OF PROCEDURE: After informed consent was obtained, the patient was brought down to the mill labor supervisor in a fasting state. Right wrist area was prepped, draped and sterilized in the usual fashion. Moderate conscious sedation, administration, documentation and physiologic monitoring of the IV conscious sedation was performed under my direct supervision by a trained registered nurse. Using modified Seldinger technique, right radial artery was then cannulated. A 6-[place] sheath was inserted, sheath was flushed. 5 [place] JR4 catheter was used to engage the right coronary and 6 [place] EBU 3.75 catheter was used to engage Left coronary artery. Multiple orthogonal images were then taken. Aortic valve was crossed. iFR to the left circumflex was done. After reviewing angiogram, Wire and catheter were taken out. TR band was applied. The patient was sent to floor in stable condition. HEMODYNAMICS: LVEDP 25 DESCRIPTION OF CORONARY ANATOMY: The left main originates from the left coronary sinus of Valsalva in the usual fashion. There was good reflux of dye from this vessel into the coronary sinus, there was no ventriculization or dampening of pressure noted. The LM bifurcates into LAD and LCX . It has no significant CAD noted. The left anterior descending artery originates from the left main in the usual fashion. It runs in the anterior interventricular groove giving rise to large size diagonal branch and multiple septal perforators and continues distally to wrap around the apex. There was no significant epicardial coronary artery disease involving the system. Left circumflex artery originates from the bifurcation in the usual fashion, then courses its way down the lateral atrioventricular groove, giving rise to 2 large-sized OM branches. 60% disease in the left circumflex (similar to prior angiogram) RCA originates from the right coronary sinus of Valsalva in the usual fashion, There was good reflux if dye from this vessel into the coronary sinus, there was no ventriculization or dampening of pressure noted. It then courses its way down the lateral atrioventricular groove, giving rise to acute marginal branch and continues distally supply right PDA. There was 30% stenosis in proximal RCA. CONCLUSION: 1. 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 2. IFR to left circumflex was 0.97 Recommendations: Continue with aspirin and high intensity statin. Continue with Metoprolol succinate 50 mg daily Restart Lisinopril 20 mg daily Start calcium channel kalani, likely his chest pain is due to microvascular dysfunction Continue to follow-up the patient on telemetry
[2025-03-04] MEDS: 0.9% Normal Saline (1000mL) 1,000 ML 75 ML IV (16:04)
[2025-03-04] MEDS: Heparin Injection (Vial) 5,000 UNIT/ML VIAL 5000 UNIT SC (22:33)
[2025-03-05] VITALS (9 sets, daily range): BP systolic 101–128; BP diastolic 45–66; PULSE 56–71; RESP 14–16; TEMP 36.5–37; O2SAT 95–100; BMI 38.3
[2025-03-05] MEDS: Nitroglycerin Oint 1 INCH PACKET 0.5 INCH TD ×2 (00:33→06:35)
[2025-03-05 06:12] LABS: AST(SGOT) 19 U/L (<=37); Alanine Aminotransfer ALT/SGPT 15 U/L (<=46); Albumin, Serum 3.3 g/dL (3.4-4.8); Alkaline Phosphatase 73 U/L (40-129); Anion Gap 8 (5-15); BUN 28 mg/dL (4-19); BUN/Creat Ratio 30.5 RATIO (10-20); Calcium,Total 9.2 mg/dL (7.6-11.0); Carbon Dioxide 21.5 mmol/L (21.0-32.0); Chloride 109 mmol/L (98-108); Estimated Creatinine Clearance 82.52 ml/min (50-250); Globulin 2.2 g/dL (2.2-4.2); Glucose 124 mg/dL (70-99); Potassium 5.1 mmol/L (3.3-5.1)
[2025-03-05 08:12] LABS: Hematocrit 31.7 % (40-54); Hemoglobin 10.4 g/dL (13.0-16.5); Red Blood Count 3.51 M/mm3 (4.6-6.2); White Blood Count 7.1 K/mm3 (4.4-11.0)
[2025-03-05 08:13] LABS: Immature Granulocytes Count 0.040 X10^3/uL (0.0-0.0); Mean Corp Hgb Conc 32.8 g/dL (32-36); Mean Corpuscular Volume 90.3 fL (80-94); Mean Platelet Vol. 10.5 fl (6.2-12.0); Platelet Count 198 K/mm3 (150-450); RBC Distribution Width CV 13.1 % (11.6-14.6); RBC Distribution Width SD 42.8 fl (35.1-43.9)
[2025-03-05] MEDS: Cholecalciferol (VIT D3) 25 MCG TABLET (1,000 UNITS) 50 MCG PO (09:33)
[2025-03-05] MEDS: Metoprolol(XL)Succ 50 MG Tablet PO (09:34)
[2025-03-05] MEDS: Aspirin E.C. 81 MG Tablet PO (09:35)
[2025-03-05] MEDS: Heparin Injection (Vial) 5,000 UNIT/ML VIAL 5000 UNIT SC (09:45)
--- NOTE | 2025-03-05 11:15 | DS.PCM_ITS ---
Providers Date of Admission: 03/02/25 Date of Discharge: 03/05/25 Primary Care Physician: Dr. Dejuan Sanders MD Consultations 03/02/25 03:02 Consult: Cardiology Routine Consulting Provider: Sherine Dietrich Reason for Consult: NSTEMI EMERGENT Consult: No MD Notified: Yes Date Notified: 03/02/25 Time Notified: 07:00 Method of Notification: Verbal Reason For Visit: NSTEMI Diagnosis Discharge Diagnosis (1) NSTEMI, initial episode of care: Status: Acute Code(s): I21.4 - Non-ST elevation (NSTEMI) myocardial infarction (2) RVF (right ventricular failure): Status: Acute Code(s): I50.810 - Right heart failure, unspecified Medications at Discharge Home Medications aspirin 81 mg tablet,delayed release (Adult Aspirin Regimen) 81 mg PO BID prevention 06/07/24 metoprolol succinate 50 mg tablet,extended release 24 hr 50 mg PO DAILY #90 TABLETS 08/18/24 lisinopril 20 mg tablet 20 mg PO DAILY #90 TABLETS 09/12/24 acetaminophen 500 mg tablet 1,000 mg PO Q6H PRN fever or pain 01/05/25 cholecalciferol (vitamin D3) 25 mcg (1,000 unit) capsule (Vitamin D3) 50 mcg PO DAILY vitamin 01/05/25 magnesium oxide 400 mg (241.3 mg magnesium) tablet 400 mg PO TID 01/05/25 meloxicam 7.5 mg tablet 7.5 mg PO BID 01/05/25 metformin 500 mg tablet,extended release 24 hr 500 mg PO QHS 01/05/25 rosuvastatin 20 mg tablet 20 mg PO QHS 01/05/25 tamsulosin 0.4 mg capsule 0.4 mg PO DAILY 01/05/25 famotidine 20 mg tablet 20 mg PO DAILY 03/02/25 furosemide 40 mg tablet (Lasix) 80 mg PO DAILY 03/02/25 amlodipine 2.5 mg tablet 2.5 mg PO DAILY 90 days #90 tabs 03/05/25 Hospital Course Summary of Care Provided Minutes Spent on Discharge: 35 Hospital Course: Patient is an 84-year-old gentleman who presented with chest discomfort. Had elevated troponin consistent with acute non-STEMI type I 1. Acute non-STEMI type I ? Patient was admitted to monitored bed treatment initiated per protocol underwent left heart catheterization which demonstrated moderate coronary artery disease. Cardiology recommended optimization of medical therapy and for patient to be discharged home on 30-day event monitor 2. Acute kidney injury ? Creatinine on admission was 1.91 Patient impaired kidney function resolved at the time of discharge 3. Chronic right ventricular failure ? Patient echo demonstrated mild to moderate RV dilatation with reduced RV dysfunction. Cardiology recommended for patient to undergo cardiac MRI as outpatient patient to follow-up with primary driver service technician for the test to be ordered 4. Anemia ? Secondary to chronic disorder monitoring H&H and transfuse if patient becomes symptomatic or hemoglobin falls below 7 5. Hypertension ? Blood pressure controlled, home medications continued with dose adjustment as needed 6. Dyslipidemia ?Patient is on statin therapy, continued at home dose 7. Diabetes mellitus type II -patient's oral hypoglycemics held. Placed on long acting insulin, Accu-Cheks a.c. and at bedtime and covered with sliding scale insulin 8. Chronic congestive heart failure with preserved ejection fraction ? Patient remain compensated 9. BPH with lower urinary obstructive symptoms - Patient treated with tamsulosin Physical Exam Narrative GENERAL: cooperative HEENT: Atraumatic; normocephalic EYES; Anicteric, Normal Conjunctiva NECK; supple, normal thyroid, RESPIRATORY: Diminished to auscultation CARDIOVASCULAR: Regular S1 S2, GI: soft, normoactive bowel sounds, : No Renal angle tenderness; EXTREMITIES: No edema, no clubbing, MUSCULOSKELETAL: no muscle wasting NEURO: Awake; no lateralizing signs. SKIN: No Rash PSYCH; Flat affect Weight / BMI Weight Weight: 124.2 kg Body Mass Index (BMI) 38.3 ABG / Lab / Microbiology Data 03/05/25 04:54 03/05/25 04:54 Laboratory: Laboratory Results - last 24 hr 03/04/25 11:13: POC Glucose 104 03/04/25 16:51: POC Glucose 141 H 03/04/25 22:22: POC Glucose 138 H 03/05/25 04:54: WBC 7.1, RBC 3.51 L, Hgb 10.4 L, Hct 31.7 L, MCV 90.3, MCH 29.6, MCHC 32.8, RDW Std Deviation 42.8, RDW Coeff of Robert 13.1, Plt Count 198, MPV 10.5, Immature Gran % (Auto) 0.600, Neut % (Auto) 74.1 H, Lymph % (Auto) 12.0 L, [place] % (Auto) 9.1, Eos % (Auto) 3.8, Baso % (Auto) 0.4, Absolute Neuts (auto) 5.3, Absolute Lymphs (auto) 0.85, Sodium 139, Potassium 5.1, Chloride 109 H, Carbon Dioxide 21.5, Anion Gap 8, BUN 28 H, Creatinine 0.91, Estim Creat Clear Calc 82.52, Est GFR (MDRD) Non-Af 84, BUN/Creatinine Ratio 30.5 H, Glucose 124 H , Calcium 9.2, Total Bilirubin 0.35, AST 19, ALT 15, Alkaline Phosphatase 73, T otal Protein 5.5 L, Albumin 3.3 L, Globulin 2.2, Albumin/Globulin Ratio 1.5 03/05/25 06:28: POC Glucose 119 H D/C Instructions DC O2, CPAP, BIPAP Needs Home O2 Discharge instructions: No Meaningful Use Info Meaningful Use Meaningful Use Diagnoses (Choose all that apply): AMI AMI/Post PCI/Angioplasty Aspirin given w/in 24hrs of arrival?: Yes ASA at discharge?: Yes Antiplatelet Therapy at Discharge:: Yes Statins at discharge?: Yes Delbert/ARB at discharge?: Yes Beta Kaylee at discharge?: Yes Done w/ Acute NE measure.: Yes Documented LVEF (%): 55 Discharge Plan Admission Admit Date/Time: 03/02/25 02:00 Attending Provider: Colten Deutsch Primary Care Provider: Dejuan Sanders Consulting Providers: Lewis Pat; Sherine Dietrich; Mary Stephens Discharge Orders/Prescriptions Prescriptions: New amlodipine 2.5 mg Tablet 2.5 mg PO DAILY 90 Days Qty: 90 0RF Continued aspirin [Adult Aspirin Regimen] 81 mg tablet,delayed release (DR/EC) 81 mg PO BID famotidine 20 mg tablet 20 mg PO DAILY furosemide [Lasix] 40 mg tablet 80 mg PO DAILY magnesium oxide 400 mg (241.3 mg magnesium) tablet 400 mg PO TID meloxicam 7.5 mg tablet 7.5 mg PO BID metformin 500 mg tablet extended release 24 hr 500 mg PO QHS rosuvastatin 20 mg tablet 20 mg PO QHS tamsulosin 0.4 mg capsule 0.4 mg PO DAILY cholecalciferol (vitamin D3) [Vitamin D3] 25 mcg (1,000 unit) capsule 50 mcg PO DAILY acetaminophen 500 mg tablet 1,000 mg PO Q6H PRN (Reason: fever or pain) metoprolol succinate 50 mg tablet extended release 24 hr 50 mg PO DAILY Qty: 90 3RF lisinopril 20 mg tablet 20 mg PO DAILY Qty: 90 3RF Other Ambulatory Orders: 30 Day Event Recorder Preventi (Routine) Timeframe: 1 Day Facility: [facility] - Location: Cardiovascular Services Ordered By: Dr. Mary Stephens Referrals / Follow Up: Obinna Baltazar MD [Med Staff - Active Staff] - Within 2 Weeks (For outpatient cardiac MRI) Dejuan Sanders MD [Primary Care Provider] - Within 2 Weeks Disposition Disposition (needs filled in before D/C Order can be placed): Home, Self Care Charges/Coding Visit Charges Inpatient E&M: 27155 Disch Hosp >30min
--- NOTE | 2025-03-05 13:12 | CASEMGMT ---
Patient has order for discharge. RN CM in to discuss needs at discharge. Patient denies needs or help at discharge. Patient states family will be bringing in HPOA, RN CM informed if they could stop at the nurses station to have cabin cleaner make copy for the chart, patient voiced understanding. Patient had no further questions or concerns.
--- NOTE | 2025-03-05 13:29 | CASEMGMT ---
Social Work Pt's son brought in LW/POA. SW made copies and put on the chart, originals given back to the family. LULÚ Elliott
--- NOTE | 2025-03-05 15:55 | CHAPLAIN ---
Type of Pastoral Visit ___ Initial Visit ___ Follow-up Visit ___ On-call Visit ___ General Patient Visit ___ Spiritual Assessment ___ Family Conference ___ Bereavement ___ Rapid Response ___ Code Blue ___ Other (describe below) Pastoral Care Referral From ___ Patient ___ Family ___ Nurse ___ Physician ___ Radio Engineering Teacher ___ Meat Puller ___ Other (describe below) Sacrament/Intervention ___ Active listening ___ Anointing ___ Confucianist ___ Bereavement ___ Communion ___ Farrah exploration ___ ___ Life review ___ Prayer ___ Reconciliation ___ Sacrament of Sick ___ Supportive presence ___ Wedding ___ Other (describe below) Pastoral Comments patient had been discharged before being seen by this vamp presser
== END 2025-03-05 15:20 | disposition home or self-care (01) | DRG 281 ==
LOC: ED 03-02 02:03 → PCU 03-02 02:30
PROVIDERS: Family Medicine; Admitting Provider Hospitalist; Emergency Provider Emergency Medicine; PCP Family Medicine; Visit Provider Internal Medicine
DX: I21.4 Non-ST elevation (NSTEMI) myocardial infarction (principal); I50.32 Chronic diastolic (congestive) heart failure; N17.9 Acute kidney failure, unspecified; N13.8 Other obstructive and reflux uropathy; I11.0 Hypertensive heart disease with heart failure; D63.1 Anemia in chronic kidney disease; E11.22 Type 2 diabetes mellitus with diabetic chronic kidney disease; E66.9 Obesity, unspecified; E78.5 Hyperlipidemia, unspecified; I50.812 Chronic right heart failure; I25.10 Atherosclerotic heart disease of native coronary artery without angina pectoris; K21.9 Gastro-esophageal reflux disease without esophagitis; N18.2 Chronic kidney disease, stage 2 (mild); N40.1 Benign prostatic hyperplasia with lower urinary tract symptoms; Z68.37 Body mass index [BMI] 37.0-37.9, adult; Z79.82 Long term (current) use of aspirin; Z79.84 Long term (current) use of oral hypoglycemic drugs; Z79.899 Other long term (current) drug therapy; Z82.49 Family history of ischemic heart disease and other diseases of the circulatory system
CPT/HCPCS: 36415; 71046; 80048; 80053; 80061; 82962; 83735; 83880; 84484; 85025; 85027; 85610; 85730; 93005; 93308; 93458; 93571; 94668; 99152; 99153; 99285; Q9957; Q9967; A4216; C1769; C1887; C1894; C8924

== ENCOUNTER → 2025-03-13 | Outpatient (CLI) | payer MEDICARE, OTHER, SELFPAY ==
[2025-03-13 12:22] LABS: Anion Gap 12 (5-15); BUN 45 mg/dL (4-19); BUN/Creat Ratio 29.4 RATIO (10-20); Calcium,Total 9.7 mg/dL (7.6-11.0); Carbon Dioxide 25.1 mmol/L (21.0-32.0); Chloride 104 mmol/L (98-108); Glucose 112 mg/dL (70-99); Potassium 5.2 mmol/L (3.3-5.1)
== END | disposition home or self-care (01) ==
LOC: LAB 11:10
PROVIDERS: PCP Family Medicine; Referring Provider Student in an Organized Health Care Education/Training Program; Visit Provider Student in an Organized Health Care Education/Training Program
DX: I10 Essential (primary) hypertension (principal)
CPT/HCPCS: 36415; 80048

== ENCOUNTER → 2025-03-16 | Outpatient (CLI) | payer MEDICARE, OTHER, SELFPAY ==
[2025-03-16 15:57] LABS: Anion Gap 10 (5-15); BUN 44 mg/dL (4-19); BUN/Creat Ratio 28.5 RATIO (10-20); Calcium,Total 9.3 mg/dL (7.6-11.0); Carbon Dioxide 25.7 mmol/L (21.0-32.0); Chloride 105 mmol/L (98-108); Glucose 119 mg/dL (70-99); Potassium 5.1 mmol/L (3.3-5.1)
== END | disposition home or self-care (01) ==
LOC: MFPLAB 11:31
PROVIDERS: PCP Family Medicine; Referring Provider Family Medicine; Visit Provider Family Medicine
DX: R94.4 Abnormal results of kidney function studies (principal)
CPT/HCPCS: 36415; 80048

== ENCOUNTER → 2025-04-02 | Outpatient (CLI) | payer MEDICARE, OTHER, SELFPAY ==
[2025-04-02 12:41] LABS: Anion Gap 10 (5-15); BUN 42 mg/dL (4-19); BUN/Creat Ratio 29.4 RATIO (10-20); Calcium,Total 9.4 mg/dL (7.6-11.0); Carbon Dioxide 24.6 mmol/L (21.0-32.0); Chloride 109 mmol/L (98-108); Glucose 116 mg/dL (70-99); PSA,Total - Annual Screen 1.95 ng/mL (0.02-4.00); Potassium 5.3 mmol/L (3.3-5.1)
== END | disposition home or self-care (01) ==
LOC: MFPLAB 09:58
PROVIDERS: Student in an Organized Health Care Education/Training Program; PCP Family Medicine; Visit Provider Family Medicine
DX: Z00.00 Encounter for general adult medical examination without abnormal findings (principal); Z12.5 Encounter for screening for malignant neoplasm of prostate
CPT/HCPCS: 80048; 84153; G0103

== ENCOUNTER → 2025-04-16 | Outpatient (CLI) | payer MEDICARE, OTHER, SELFPAY ==
--- NOTE | 2025-04-16 14:49 | RAD_ITS ---
PROCEDURE: CHEST PA AND LATERAL 04/16/2025 REASON FOR EXAM: BLOOD TINGED SPUTUM, COUGH TECHNIQUE: CHEST PA AND LATERAL COMPARISON: PA and lateral chest of 03/01/2025. RAD/Chest PA and Lateral IMPRESSION: Right upper quadrant abdominal surgical clips are again noted. Chronic lung changes and hyperinflation appear stable. No focal infiltrate is seen. No pleural effusion or pneumothorax is seen. The cardiomediastinal silhouette is stable, without evidence of cardiomegaly. Moderate degenerative changes of the thoracic spine are seen, along with thorac ic DISH. No acute osseous changes seen. Reading Location: [place] [id number]
[2025-04-16 18:23] LABS: Anion Gap 11 (5-15); BUN 31 mg/dL (4-19); BUN/Creat Ratio 24.0 RATIO (10-20); Calcium,Total 9.6 mg/dL (7.6-11.0); Carbon Dioxide 25.1 mmol/L (21.0-32.0); Chloride 104 mmol/L (98-108); Glucose 110 mg/dL (70-99); Potassium 4.9 mmol/L (3.3-5.1)
== END | disposition home or self-care (01) ==
LOC: MTLAB 14:49
PROVIDERS: Student in an Organized Health Care Education/Training Program; PCP Family Medicine; Referring Provider Family Medicine; Visit Provider Family Medicine
DX: R04.2 Hemoptysis (principal)
CPT/HCPCS: 36415; 71046; 80048

== ENCOUNTER 2025-04-24 12:25 | Emergency (ER) | payer MEDICARE, OTHER, SELFPAY ==
[2025-04-24 12:26] VITALS: BP 130/62; PULSE 71; RESP 18; TEMP 37.2; O2SAT 97; BMI 38.5
[2025-04-24 15:09] VITALS: BP 142/68; PULSE 69; RESP 16; TEMP 36.7; O2SAT 94
--- NOTE | 2025-04-24 15:26 | RAD_ITS ---
PROCEDURE: CHEST PA AND LATERAL 04/24/2025 REASON FOR EXAM: DYSPNEA ON EXERTION, HX CHF TECHNIQUE: Procedure Code: RADCXR Modality: DX Procedure: CHEST PA AND LATERAL COMPARISON: 04/16/2025. FINDINGS: Mild streaky opacity in the posterior aspect of the lungs on the lateral view is concerning for airspace infiltrates. The remainder of the lungs is clear. The cardiac silhouette is normal in size and contour. Moderate thoracic spondylosis. RAD/Chest PA and Lateral IMPRESSION: As above. [id number]
--- NOTE | 2025-04-24 15:26 | EKG12_ITS ---
Test Reason : SOB Blood Pressure : */* mmHG Vent. Rate : 73 BPM Atrial Rate : 73 BPM P-R Int : 226 ms QRS Dur : 118 ms QT Int : 436 ms P-R-T Axes : 106 -36 51 degrees QTcB Int : 480 ms Sinus rhythm with 1st degree A-V block Left axis deviation Non-specific intra-ventricular conduction delay QTcB >= 480 msec Abnormal ECG Confirmed by Pedro Laws ([id number]), commercial production editor MELYSSA GÓMEZ ([id number]) on 04/25/2025 8:18:34 AM Referred By: Confirmed By: Pedro Laws
--- NOTE | 2025-04-24 15:27 | EX.ED.DYSGE1 ---
HPI History of Present Illness Chief Complaint: Cellulitis Informant: patient and spouse/S.O. Narrative Narrative: 84-year-old male sent to the ER from cardiology because of soreness and edema in both of his legs. Patient states this has been going on for maybe 2 weeks, he had more erythema in the left and then for about the past week it has involve the right as well. Edema on both. States he has been taking his diuretic and still urinating a bit afterwards as usual but not affecting the edema in his legs like he usually does. Has a history of congestive heart failure and IL in the past. He has been having dyspnea on exertion for the last couple weeks, but no orthopnea, cough, fevers or chills. States his legs are sore but not extremely painful. Denies any fevers or chills. He is feeling weak generally but can still walk. [facility] Medical History (Updated 04/24/25 @ 20:[address] 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 Myelopathy HTN (hypertension), benign Lumbar disc herniation with radiculopathy Right ventricular dysfunction Atherosclerotic heart disease of ruby coronary artery without angina pectoris (03/02/25) Thyroid nodule Palpitations Crohn disease Arthritis Back pain Syncope Abdominal pain Shortness of breath on exertion History of pain when walking History of edema Chest pain History of rheumatic fever Home Medications ?Medication ?Instructions ?Recorded ?Last Taken ?Type metoprolol succinate 50 mg 50 mg PO DAILY #90 TABLETS 08/18/24 01/05/25 Rx tablet,extended release 24 hr acetaminophen 500 mg tablet 1,000 mg PO Q6H PRN fever or pain 01/05/25 01/05/25 History magnesium oxide 400 mg (241.3 mg 400 mg PO TID 01/05/25 01/05/25 History magnesium) tablet metformin 500 mg tablet,extended 500 mg PO QHS 01/05/25 01/04/25 History release 24 hr rosuvastatin 20 mg tablet 20 mg PO QHS 01/05/25 01/04/25 History aspirin 81 mg tablet,delayed 81 mg PO QDAY prevention 03/13/25 Unknown History release (Adult Aspirin Regimen) ranolazine 500 mg tablet,extended 500 mg PO BID take with food #60 03/22/25 Unknown Rx release,12 hr tabs cephalexin 500 mg capsule 500 mg PO Q6 #40 CAPSULES 04/24/25 Unknown Rx torsemide 20 mg tablet 20 mg PO BID #90 tabs 04/24/25 Unknown Rx Allergy/AdvReac Type Severity Reaction Status Date / Time Penicillins Allergy Rash Verified 04/24/25 12:26 Family History Sister Cancer Heart disease Mother Brain tumor Father Myocardial infarction Son Heart disease Other Congestive heart failure Diabetes NSTEMI, initial episode of care RVF (right ventricular failure) Renal insufficiency Surgical History History of cholecystectomy Hx of colonoscopy Hx of total hip arthroplasty Hx of hernia repair Social History Smoking Status: Never smoker alcohol intake: current alcohol intake frequency: holidays/special occasions only ROS ROS ED Constitutional Constitutional ED: Denies chills or fever(s) Eyes Eyes: Denies change in vision or diplopia ENT ENT ED: Denies rhinorrhea or sore throat Cardiovascular Cardiovascular: Reports leg edema; Denies chest pain, orthopnea or palpitations Respiratory/Chest Respiratory/Chest: Reports dyspnea and dyspnea on exertion; Denies cough or orthopnea Gastrointestinal Gastrointestinal: Denies abdominal pain, diarrhea, nausea or vomiting Genitourinary Genitourinary ED: Denies dysuria or hematuria Musculoskeletal Musculoskeletal: Denies back pain or neck pain Integumentary Reports rash; Denies abscess Neurologic Neurologic: Denies headache(s), paresthesias or weakness Psychiatric Psychiatric: Denies anxiety or suicidal thoughts EXAM Physical Exam Const Vital Signs: 04/24/25 12:26 04/24/25 15:09 04/24/25 16:00 Temperature 98.9 F 98.0 F Temperature Source Oral Oral Pulse Rate 71 69 71 Respiratory Rate 18 16 Blood Pressure 130/62 H 142/68 H 140/72 H Blood Pressure Mean 84 92 94 Pulse Ox 97 94 98 Oxygen Delivery Method Room Air Room Air 04/24/25 16:38 04/24/25 18:00 Temperature 98.8 F Temperature Source Oral Pulse Rate 67 Respiratory Rate 19 H Blood Pressure 136/62 H Blood Pressure Mean 86 Pulse Ox 95 Oxygen Delivery Method Room Air Room Air Positive well nourished, well developed and obese General Appearance ED: well developed and NAD Nutritional Appearance: obese HEENT Reports moist mucous membranes normocephalic and atraumatic Eyes PERRL and EOMs intact bilaterally Neck full ROM and supple Resp normal respiratory effort and clear to auscultation bilaterally Resp Narrative: Converses in full sentences Cardio regular rate and regular rhythm GI non-tender and non-distended Auscultation: normoactive bowel sounds Palpation: soft Back/Spine no CVA tenderness General Back: other FROM Extremity normal to inspection Extremity Narrative: There is warmth erythema up to the proximal lower leg on the left, he comes up to about the mid calf on the right. These areas are not very tender, but in the distal lower leg with deep palpation he states the pain/tenderness is mild. There is no subcutaneous emphysema or necrotic tissue anywhere. There is no palpable inguinal lymphadenopathy but obesity limits this part of the exam. General Extremety ED: Yes edema; Negative for pulses abnormal General Extremity: edema bilateral lower extremity Details: severe; Negative for pulses abnormal Neuro oriented x3, CN's II-XII intact bilaterally and no sensory deficits noted Sensorium / Orientation: awake and alert Motor Exam: strength 5/5 throughout Skin no rashes or lesions noted and no wounds MDM MDM MDM Narrative Medical decision making narrative: I agree that the appearance of this could be cellulitis but he has a bilaterally, and I would expect him to be much more tender if this were infection, and he does not have peripheral neuropathy with altered sensation. I explained this to him and he is in agreement, so we went forward to work him up for acute CHF given that he has had dyspnea that is relatively new with exertion. Also did x-rays of his legs, 4 views of each tib-fibula are negative for bony involvement or subcutaneous emphysema/necrotizing fasciitis on my examination. Furthermore supporting the lack of necrotizing fasciitis, his erythema is not markedly different on reexamination nor is his leg exam. He does not have a significant leukocytosis, but his BNP is elevated more so than usual, his creatinine is similar to usual at 1.26, and his troponin is nonspecifically elevated at 32 with an EKG that is unremarkable I suspect this is all related to his kidney function and history of right ventricular dysfunction according to his echo. He does not have major JVD clinically but he is obese and this limits exam somewhat. I am treating for possible infection empirically because I cannot rule out cellulitis, with IV vancomycin since he has an allergy to penicillins/Unasyn. Chest x-ray 2 views on my interpretation does not show overt pulmonary edema, radiology calling some mild posterior airspace infiltrates which may indicate mild pulmonary edema, I do not think it represents pneumonia as he has no symptoms of that. Patient said he was feeling weak, so I offered admission. He declines and states he can go home and would prefer to try oral antibiotics and follow-up. Cardiology wanted him to discontinue his amlodipine due to the edema, and I am going to have him double his torsemide to twice daily for the next week or so until he follows up and/or his edema is better. He is comfortable that plan. Lab Data Attestation: I reviewed the patient's lab results. Labs: Laboratory Results - last 24 hr 04/24/25 16:32 WBC 9.0 RBC 4.43 L Hgb 12.6 L Hct 39.2 L MCV 88.5 MCH 28.4 MCHC 32.1 RDW Std Deviation 40.7 RDW Coeff of Robert 12.7 Plt Count 266 MPV 9.2 Immature Gran % (Auto) 0.600 Neut % (Auto) 71.7 H Lymph % (Auto) 12.5 L [place] % (Auto) 12.1 H Eos % (Auto) 2.5 Baso % (Auto) 0.6 Absolute Neuts (auto) 6.4 Absolute Lymphs (auto) 1.12 Nucleated RBC % 0 Sodium 139 Potassium 4.1 Chloride 101 Carbon Dioxide 25.6 Anion Gap 13 BUN 34 H Creatinine 1.26 H Estim Creat Clear Calc 59.85 Est GFR (MDRD) Non-Af 57 L BUN/Creatinine Ratio 27.1 H Glucose 106 H Calcium 9.8 Total Bilirubin 0.65 AST 17 ALT 13 Alkaline Phosphatase 106 Troponin T High Sens 32 H D NT pro BNP II 3581 H Total Protein 7.2 Albumin 4.2 Globulin 3.0 Albumin/Globulin Ratio 1.4 Radiography Diagnostic Testing: Clinical Impression(s) from Imaging Studies Chest X-Ray 04/24/25 15:26 IMPRESSION: As above. [id number] Tibia/Fibula X-Ray 04/24/25 17:09 IMPRESSION: No acute or aggressive osseous abnormality. Reading Location: [facility] Tibia/Fibula X-Ray 04/24/25 17:15 IMPRESSION: No acute or aggressive osseous abnormality. Reading Location: [facility] Rhythm Strip Rhythm Strip: Sinus Rhythm Rate: 75 Ectopy: None EKG Initial EKG: Attestation: I personally reviewed and interpreted this EKG as follows: Interpretation: Sinus Rhythm, No Acute Injury Pattern, AV Block (1st deg) and - (borderline long QTc) Prior EKG tracings: available for review Prior: Unchanged Discharge Plan Triage Chief Complaint: Cellulitis ED Provider: Matthew Olguin Dx/Rx/DC Orders Clinical Impression: Bilateral lower extremity edema, Diastolic CHF, Bilateral cellulitis of lower leg Instructions: ED Cellulitis, Heart Failure Prescriptions: New cephalexin 500 mg capsule 500 mg PO Q6 Qty: 40 0RF Continued aspirin [Adult Aspirin Regimen] 81 mg tablet,delayed release (DR/EC) 81 mg PO QDAY magnesium oxide 400 mg (241.3 mg magnesium) tablet 400 mg PO TID metformin 500 mg tablet extended release 24 hr 500 mg PO QHS rosuvastatin 20 mg tablet 20 mg PO QHS acetaminophen 500 mg tablet 1,000 mg PO Q6H PRN (Reason: fever or pain) metoprolol succinate 50 mg tablet extended release 24 hr 50 mg PO DAILY Qty: 90 3RF ranolazine 500 mg tablet extended release 12 hr 500 mg PO BID Qty: 60 11RF Changed torsemide 20 mg tablet 20 mg PO BID Qty: 90 3RF Discontinued amlodipine 5 mg tablet 5 mg PO DAILY 90 Days Qty: 90 3RF Primary Care Provider: Dejuan Sanders Referrals: Dejuan Sanders MD [Primary Care Provider] - 3-5 Days if not improving (and/or your range operator) Print Language: Yi Disposition Disposition: Home, Self Care
[2025-04-24 16:00] VITALS: BP 140/72; PULSE 71; O2SAT 98
[2025-04-24 16:44] LABS: Hematocrit 39.2 % (40-54); Hemoglobin 12.6 g/dL (13.0-16.5); Immature Granulocytes Count 0.050 X10^3/uL (0.0-0.0); Mean Corp Hgb Conc 32.1 g/dL (32-36); Mean Corpuscular Volume 88.5 fL (80-94); Mean Platelet Vol. 9.2 fl (6.2-12.0); NRBC Flagged by Analyzer 0 % (0-5); Platelet Count 266 K/mm3 (150-450); RBC Distribution Width CV 12.7 % (11.6-14.6); RBC Distribution Width SD 40.7 fl (35.1-43.9); Red Blood Count 4.43 M/mm3 (4.6-6.2); White Blood Count 9.0 K/mm3 (4.4-11.0)
--- NOTE | 2025-04-24 17:09 | RAD_ITS ---
PROCEDURE: RIGHT TIBIA FIBULA 2 VIEWS 04/24/2025 REASON FOR EXAM: PAIN, SWELLING TECHNIQUE: RIGHT TIBIA FIBULA 2 VIEWS COMPARISON: None. FINDINGS: No acute fracture or dislocation. Alignment is anatomic. Preserved joint spaces. Plantar calcaneal spurring. No osseous erosion/destruction or periosteal reaction. Nonspecific generalized soft tissue edema. RAD/Tibia & Fibula 2 Views IMPRESSION: No acute or aggressive osseous abnormality. Reading Location: [id number]
--- NOTE | 2025-04-24 17:15 | RAD_ITS ---
PROCEDURE: LEFT TIBIA FIBULA 2 VIEWS 04/24/2025 REASON FOR EXAM: PAIN, SWELLING TECHNIQUE: LEFT TIBIA FIBULA 2 VIEWS COMPARISON: None. FINDINGS: No acute fracture or dislocation. Alignment is anatomic. Preserved joint spaces. No osseous erosion/destruction or periosteal reaction. Nonspecific generalized soft tissue edema. RAD/Tibia & Fibula 2 Views IMPRESSION: No acute or aggressive osseous abnormality. Reading Location: [id number]
[2025-04-24 17:19] LABS: AST(SGOT) 17 U/L (<=37); Alanine Aminotransfer ALT/SGPT 13 U/L (<=46); Albumin, Serum 4.2 g/dL (3.4-4.8); Alkaline Phosphatase 106 U/L (40-129); Anion Gap 13 (5-15); BUN 34 mg/dL (4-19); BUN/Creat Ratio 27.1 RATIO (10-20); Calcium,Total 9.8 mg/dL (7.6-11.0); Carbon Dioxide 25.6 mmol/L (21.0-32.0); Chloride 101 mmol/L (98-108); Estimated Creatinine Clearance 59.85 ml/min (50-250); Globulin 3.0 g/dL (2.2-4.2); Glucose 106 mg/dL (70-99); Potassium 4.1 mmol/L (3.3-5.1); Pro- Brain NATRIURETIC PEPTIDE 3581 pg/mL (<=1800); Troponin T High Sensitivity 32 ng/L (<=22)
[2025-04-24 18:00] VITALS: BP 136/62; PULSE 67; RESP 19; TEMP 37.1; O2SAT 95
[2025-04-24] MEDS: Vancomycin HCl 2,000 MG in 0.9% Normal Saline (500mL Bag) 500 ML 250 MG IV (18:27)
[2025-04-24 20:00] VITALS: BP 134/61; PULSE 78; RESP 18; TEMP 36.8; O2SAT 97
== END 2025-04-24 21:00 | disposition home or self-care (01) ==
PROVIDERS: Emergency Provider Emergency Medicine; PCP Family Medicine; Visit Provider Emergency Medicine
DX: L03.115 Cellulitis of right lower limb (principal); I11.0 Hypertensive heart disease with heart failure; I50.30 Unspecified diastolic (congestive) heart failure; I25.2 Old myocardial infarction; I25.10 Atherosclerotic heart disease of native coronary artery without angina pectoris; E66.9 Obesity, unspecified; Z79.899 Other long term (current) drug therapy; Z79.82 Long term (current) use of aspirin; Z90.49 Acquired absence of other specified parts of digestive tract; Z96.649 Presence of unspecified artificial hip joint; L03.116 Cellulitis of left lower limb; R60.0 Localized edema
CPT/HCPCS: 71046; 73590; 80053; 83880; 84484; 85025; 93005; 96365; 96366; 99283; A4216

== ENCOUNTER → 2025-04-25 | Outpatient (CLI) | payer MEDICARE, OTHER, SELFPAY ==
--- NOTE | 2025-04-25 14:02 | PCM.CR.HP2 ---
CR - History & Physical General Arrival date:: 04/25/25 Arrival time:: 14:02 Date of Referral:: 03/05/25 Date of CR Evaluation:: 04/25/25 Referring Physician: Dr. Dietrich Primary Diagnosis: MA - NSTEMI <12 months History of Present Cardiac Event Onset Date Acute Myocardial Infarction within 12 months:: Yes (03/02/25 onset) Medications Ambulatory Orders ?Medication ?Instructions ?Recorded metoprolol succinate 50 mg 50 mg PO DAILY #90 TABLETS 08/18/24 tablet,extended release 24 hr acetaminophen 500 mg tablet 1,000 mg PO Q6H PRN fever or pain 01/05/25 magnesium oxide 400 mg (241.3 mg 400 mg PO TID 01/05/25 magnesium) tablet metformin 500 mg tablet,extended 500 mg PO QHS 01/05/25 release 24 hr rosuvastatin 20 mg tablet 20 mg PO QHS 01/05/25 aspirin 81 mg tablet,delayed 81 mg PO QDAY prevention 03/13/25 release (Adult Aspirin Regimen) ranolazine 500 mg tablet,extended 500 mg PO BID take with food #60 03/22/25 release,12 hr tabs cephalexin 500 mg capsule 500 mg PO Q6 #40 CAPSULES 04/24/25 torsemide 20 mg tablet 20 mg PO BID #90 tabs 04/24/25 Allergies Allergies Penicillins Allergy (Verified 04/24/25 12:26) Rash Sleep Disorder Evaluation Hx of Sleep Apnea: No Do you snore loudly (louder than talking or can be heard through closed doors)?: No Do you often feel tired/ fatigued/ sleepy during daytime?: No Has anyone observed you stop breathing during sleep?: Yes History of Hypertension (for STOP score): No STOP Results: Negative Advanced Directives Advanced Directives 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 Matthew Olguin MD) Elevated serum immunoglobulin free light chain level R76.8 [place] light chain is 26.3. Not significant for any disease. 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 Thyroid nodule E04.1 Palpitations R00.2 Crohn disease K50.90 Arthritis M19.90 Back pain M54.9 ARTHRITIS Syncope R55 Abdominal pain R10.9 Shortness of breath on exertion R06.02 History of pain when walking Z87.898 History of edema Z87.898 Chest pain R07.9 History of rheumatic fever Z86.79 Past Surgical History Past Surgical History History of cholecystectomy Z90.49 Hx of colonoscopy Z98.890 Hx of total hip arthroplasty Z96.649 LEFT 20 YRS AGO Hx of hernia repair Z98.890, Z87.19 X2 WITH LAST HERNIA SURGERY HAD JESSICA YI Family History Summary Family History Sister Cancer Heart disease Mother Brain tumor Father Myocardial infarction Son Heart disease Other Congestive heart failure Diabetes NSTEMI, initial episode of care RVF (right ventricular failure) Renal insufficiency Social History Smoking History Smoking Status: Never smoker Alcohol Use Alcohol Usage: No Substance Abuse Hx Substance Use: No Occupation Occupation (List type of work in comments):: Employed Hours worked per day:: 10 Social Environment Status Marital Status: Single Current Living Arrangements Living Environment:: Alone Children How many children do you have?: 2 Do any of your children live nearby?: Yes Safety Do you feel safe in your surroundings?: Yes Assistance Do you need any assistance at home?: no Review of Systems Review of Systems Hints Review of Present Symptoms: Reports Shortness of Breath with Exertion, Angina, Dizziness/Lightheadedness, Fatigue, Appetite - Special Diet and Sleep - Normal; Denies Shortness of Breath at Rest, PVD, Operative Discomfort, Wound Healing, Heart Arrhythmia/Irregularities, Appetite - Normal or Sexual Changes Pain Is Patient Pain Free?: Yes Risk Factor Assessment Chief Complaint Chief Complaint: MA - NSTEMI <12 months Vital Signs Pulse Ox: 94 Blood Pressure: 112/62 Pulse Pulse Rate: 78 Pulse Rhythm: Regular Hypertension Blood Pressure Sitting - Right Arm: 112/62 Diabetes Diabetic History: Type II Nutrition Referral for Diabetes: Yes Obesity Height: 5 ft 11 in Weight:: 272 lb Weight in Pounds: 272.0 lbs Body Mass Index (BMI): 37.9 Nutritional Referral for Obesity: Yes Physical Inactivity Physical Inactivity: None Risk Stratification Risk Guidelines: Lowest Risk: Risk Factor for Smoking, Moderate Risk: Risk Factor for Hypertension, Risk Factor for Sedentary Lifestyle and Risk Factor for Depression and Highest Risk: Risk Factor for Dyslipidemia, Risk Factor for Diabetes and Risk Factor for Obesity For Smoking Smoking Risk Guidelines For Dyslipidemia Dyslipidemia Risk Guidelines For Diabetes Mellitus Diabetes Risk Guidelines For Obesity/Overweight Obesity/Overweight Risk Guidelines For Hypertension Hypertension Risk Guidelines For Sedentary Lifestyle Sedentary Lifestyle Risk Guidelines For Depression Depression Risk Guidelines Family History Family History Sister Cancer Heart disease Mother Brain tumor Father Myocardial infarction Son Heart disease Other Congestive heart failure Diabetes NSTEMI, initial episode of care RVF (right ventricular failure) Renal insufficiency Motivation Motivation to Participate On a scale of 1 to 10, how prepared are you to commit to attending program?: 5 What do you see as barriers to successfully being able to complete the program?: nothing What do you see as the benefits of succesfully completing the program? In other words, what do you hope to get out of participating in the program?: more energy, stronger, get back to work Are there issues you are dealing with that will interfere with completing the program?: no Do you have a spouse or signficant other, family or friends who will help support you to complete the program?: yes
--- NOTE | 2025-04-25 14:13 | PCM.CR.ITP ---
Diagnosis General Information Admitting Diagnosis: AR - NSTEMI <12 months Personal Learning Style:: Audio/Visual Barriers to Learning: No Barriers Stage of change r/t lifestyle modifications:: Contemplation Gave educational material for:: Treating Heart Disease, How The Heart Works, What it means to have Heart Disease, How Coronary Artery Disease is Diagnosed, Heart Procedures, What Heart Medications Do, Risk Factors & Modifications, Living an Active Life, Nutrition, Emotions & Heart Disease, Stress Management & Relaxation and Sleep Disorders & Heart Disease Education/Goals Cardiac Rehabilitation Goals Personal Goals: Initial Assessment: Improve energy level, Participate in home exercise program, Get back to work, or to resume activities faster, Improve knowledge of cardiac disease, Improve muscle strength and endurance and Improve diet and eating habits (eat healthier) Scale for measuring improvement of personal goals Diagnosis & Disease Process Outcomes/Goals: Pt IDs own risk factors & lifestyle modifications by Session 10, Verbalizes symptoms of angina & response by session 3., Pt independently manages and Other Additional Outcomes/Goals: Plan/Interventions: Assist Pt to ID & engage in lifestyle modification to reduce CVD risk, Instruct on individual risk factors, Review symptoms of angina & emergency actions, Review secondary diagnosis & identify educational needs. and Other see comment 30 day Reassessments:: Not Met 30 day Reassessments:: Not Met 30 day Reassessments:: Not Met 30 day Reassessments:: Not Met Final Reassessments:: Not Met Safety Referral to Physical Therapy: No Referral to [facility] Case Management: No Fall Risk Assessed:: Yes Assistive Devices:: None Exercise - Initial Assessment Visit Date of Eval: 04/25/25 (initial eval ) Mets: Pre-: >3 METS for 30 minutes by discharge, >5 METS for 30 minutes by discharge, >7 METS for 30 minutes by discharge and Unable to meet goal due to: (see comment below) Physician Prescribed Exercise Modalities: Treadmill, Rower, Schwinn Airdyne AD-7, SciFit Stepper, SciFit Pro-II Ergometer and SciFit Lateral [place] Frequency: 3x/week for 12 weeks [36 sessions] Intensity: 60-80% of age predicted maximum heart rate reserve Duration: 30 - 45 minutes Current METSs:: 3 Target Heart Rate:: 82-103 Resting Blood Pressure: 112/62 EKG Type: NSR Outcomes & Goals Goals:: Verbalizes understanding of THR, RPE & goal METS by session 6, Documents in home exercise log/reports 30 min aerobic 5 day/wk by DC, Demonstrates accurate pulse taking by DC and Other additional outcome/goals: see below Intervention & Plan Exercise Program Goals: Instruct on personal THR & RPE, Instruct on MET level & personal MET goal, Show patient to take own pulse /validate performance until accurate, Instruct on home exercise and Other additional plan/int Physical Activity Home Exercise Physical Activity - Home Exercise: Safe Exercise, Warm-up, Self-monitoring, Cool-Down, Home Exercise > 30 min Daily and Sitting Time <3 hours/daily Outcomes & Goals Outcomes/Goals: Demonstrates correct Warm-up/exercise Cool-Down (S3) if = 2.5 METs, Verbalizes symptoms of exercise intolerance by Session 3 (S3), Demonstrate safe equipment use (S3) & follows exercise prescrition (6) and Other: See below Intervention & Plan Plan/Intervention: Instruct warm-up & cool-down if exercising at > 2 METs, Instruct on symptoms of exercise intolerance & actions to take, Instruct & monitor on saf, Assess intial functional capacity & safety risk and Other See below Nutrition - Initial Assessment Visit Date of Eval: 04/25/25 (initial eval ) Cholesterol/Lipids (Other Core Measures) Determine presence & major risk factors that modify LDL goal: Hypertension or hypertensive medication, Low HDL cholesterol <40 mg/dL*, Family history of premature CHD in Male < 55 years: female <65 yearsFa and Age men > 45 years; women >/= 55 years Outcomes/Goals: Pt IDs own risk factors & lifestyle modifications by Session 10, Verbalizes symptoms of angina & response by session 3., Pt independently manages and Other Additional Outcomes/Goals: Intervention/Plan: Advocate for lipid panel cholesterol medication if applicable, Instruct on personal lipid levels & lipid goals/NCEP guidelines, Instruct on cholesterol and Other additional plan/int Referral to dietitian:: Yes (Nutrition score of 5) Diabetes (Other Core Measures) Diabetes Type: Diagnosis Type II ICD-10 E11 Non-Insulin Dependent?: Yes Do you monitor your blood sugar at home?: No Referral to Diabetic Clinic:: No Outcomes/Goals:: Able to state Weight Mgt (Other Care) Height: 5 ft 11 in Weight:: 272 lb BMI: 37.9 Diagnosis Overweight/Obesity BMI> 30% ICD-10 E66: Yes Diagnosis High BMI/Morbid Obesity BMI> 35% ICD-10 Z68: Yes Outcomes/Goals: Pt sets, maintains & shows weight loss goal & trend during rehab and Other additional outcomes/goals Intervention/Plan: Instruct on ideal BMI & set weight loss goal w/patient, Assist pt to ID & incorporate diet changes for weight loss by S9, Refer to Structured Weight Loss program as appropriate, Encourage goal of using 250-300dcal per session for weight loss and Other additional plan/interventions Healthy Eating Habits Will attend diet classes:: Yes Outcomes/Goals:: Consume diet rich in vegs,fruits,whole grain/high fiber,fish,lean meat, Limit sat/trans fats,cholesterol & added salts & sugars and Other additional outcome/goals: Intervention/Plan:: Assess current eating habits and Other Additional plan/interventions Education Gave educational materials for:: Signs & symptoms of hypoglycemia, Signs & symptoms of hyperglycemia, Relate diabetes to coronary artery disease and Healthy eating Core - Initial Assessment Visit Date of Eval: 04/25/25 (initial eval ) Medication Compliance Preventative Medication(s):: Aspirin, NEVILLE inhibitor, Statin/lipid and Beta kalani H/O mental health issues: depression, anxiety, or addiction?: No Doesn?t believe in the benefits of treatment?: No Believes medications are unnecessary or harmful?: No Has a concern about medication side effects?: No Expresses concern over the cost of medications?: No Outcomes/Goals: Verbalizes medications,desired effect & common side effects @ DC, Pt self-reports following medication regimen, Keeps card in wallet w/medications listed by DC and Other additional outcome/goals: Interventions/plans: Instruct on medication effects & side effects, Review medication list w/patient every two weeks, Instruct importance of taking meds as ordered & assist problem solving and Other additional Tobacco Use Tobacco Use: Non-smoker Hypertension Resting Blood Pressure:: 112/62 [place] [employer] Hypertension Guidelines Outcomes/Goals: Able to verbalize/achieve optimal blood pressure <130/80, Incorporates diet changes & exercise for blood pressure control by DC and Other additional outcomes/goals Interventions/plan: Instruct on optimal blood pressure, hypertension & medications, Instruct on effects of sodium, alcohol, stress, exercise &hypertension and Other additional plan/interventions Tobacco Cessation Referral Smoking Cessation Referral:: No Individual Education/Counseling:: No Education Schedule Given:: Yes Psychosocial - Initial Assess VIsit Date of Eval: 04/25/25 (initial eval ) History of previous Mental disease:: No Target Goals Target Goals Psychosocial Test Tool Used:: PHQ-9 Questionnaire phq-9 Severity See PHQ-9 Score: 5 Referral to Behavioral Health PS - Interventions: Yes: Attend Stress Management Classes Outcomes/Goals: See list Psychosocial Outcomes/Goals:: ID's personal stressors & 2 strategies to manage stress by discharge and Other Additional outcome/goals: Intervention/Plan: See List Interventions/Plan:: Assess stressors,coping strategies & signs of derpression on admission, Instruct/assist pt to develop coping & personal stress Mgt strategies, Refer to Behavioral Health if appropriate, Refer to Physician if appropriate, Instruct patient to recognize signs & symptoms of depression, Instruct patient to recog and Other additional plan/intervention Patient Health Questionnaire PHQ-9 Screening Initial Assessment: 1. Little interest or pleasure in doing things: Not at all 2. Feeling down, depressed, or hopeless: Not at all 3. Trouble falling or staying asleep, or sleeping too much: Not at all 4. Feeling tired or having little energy: Nearly every day 5. Poor appetite or overeating: More than half the days 6. Feeling bad about yourself -- or that you are a failure or have let yourself or your family down: Not at all 7. Trouble concentrating on things, such as reading the newspaper or watching television: Not at all 8. Moving or speaking so slowly that other people could have noticed. Or the opposite - being so fidgety or restless that you have been moving around a lot more than usual: Not at all 9. Thoughts that you would be better off , or of hurting yourself in some way: Not at all How difficult have these problems made it for you to do your work, take care of things at home, or get along with other people?: Not difficult at all Total Score: 5 TARI-Q SV Test Statements CAD is a disease of the arteries in the heart: False Examples of risk factors for heart disease: True Angina is chest pain or discomfort: True The benefits of resistance training include: True Eating more meat and dairy products: False Anti-platelet medications such as aspirin are important: True The only effective way to manage stress: False An exercise warm-up slowly increases heart rate: True Prepared, processed foods usually have high sodium: True Depression is common after a heart attack: True The statin medications lower cholesterol: True To control blood pressure, lower the amount of sodium: True If someone gets chest discomfort during walking: False Transfats are partially hydrogenated vegetable oils: True Sleep apnea that is not treated increases the risk: True To control cholesterol, one should become a vegetarian: False Someone knows if he/she is exercising at the right level: True Diabetes cannot be prevented with exercise & health eating: I Don't Know Stress is a large risk for heart attack: True A diet that can help lower blood pressure is rich in: True Total Score Total Correct Responses: 18 Self-Efficacy 6-Item Scale Initial Assessment: We would like to know how confident you are in doing certain activities. Please select your confidence level for: Fatigue Select Number: 1 Physical Discomfort or Pain Select Number: 1 Emotional Distress Select Number: 9 Other Symptoms or Health Problems Select Number: 2 Different Tasks and Activities Select Number: 6 Medication Select Number: 7 Total Score:: 4 Nutrition Survey Nutrition Survey Instructions Scoring Instructions Nutrition Survey Initial: Have you lost >10 lbs over the past 2 months without trying?: No Are you following a special diet at home for diabetes, low fat, or low salt?: No Are you interested in meeting with a dietitian for help understanding your diet?: Yes Do you eat less than 3 meals a day?: No Do you eat fatty meats (cullen, sausage, ribs, etc), fried foods, desserts, large amounts of salad dressings, margarine, butter, or cheese most days?: Yes Do you have food allergies? [Enter types in comment field]: No Do you eat in restaurants more than 3 times a week?: Yes Do you season food with salt, seasoning salt, or garlic salt?: Yes Do you used canned, boxed, frozen meals, or soups, seasoning packets?: Yes Total Score:: 5 Exercise - 30-day Assessment Physician Prescribed Exercise Modalities: Treadmill, Rower, Krista Smithne AD-7, SciFit Stepper, SciFit Pro-II Ergometer and SciFit Lateral [place] Operator Exercise - 60-day Assessment Physician Prescribed Exercise Modalities: Treadmill, RowerKristane AD-7, SciFit Stepper, SciFit Pro-II Ergometer and SciFit Lateral [place] Exercise - 90-day Assessment Physician Prescribed Exercise Modalities: Treadmill, Rower, Krista Scott AD-7, SciFit Stepper, SciFit Pro-II Ergometer and SciFit Lateral [place] Operator Exercise - Final/Discharge Physician Prescribed Exercise Modalities: Treadmill, Rower, Krista Scott AD-7, SciFit Stepper, SciFit Pro-II Ergometer and SciFit Lateral [place] Operator Frequency: 3x/week for 12 weeks [36 sessions] Intensity: 60-80% of age predicted maximum heart rate reserve Current METSs:: 3 Target Heart Rate:: 82-103 Nutrition - 30-Day Assessment Weight Mgt (Other Care) Height: 5 ft 11 in Weight:: 272 lb BMI: 37.9 Nutrition - 60-Day Assessment Weight Mgt (Other Care) Height: 5 ft 11 in Weight:: 272 lb BMI: 37.9 Core - Final Assessment Hypertension Resting Blood Pressure:: 112/62 [place] [employer] Hypertension Guidelines Core - 60-Day Assessment Hypertension Resting Blood Pressure:: 112/62 [place] [employer] Hypertension Guidelines Psychosocial - 30-Day Assess Target Goals Target Goals Referral to Behavioral Health PS - Interventions: Yes: Attend Stress Management Classes Psychosocial - 60-Day Assess Target Goals Target Goals Referral to Behavioral Health PS - Interventions: Yes: Attend Stress Management Classes Psychosocial - 90-Day Assess Target Goals Target Goals Referral to Behavioral Health PS - Interventions: Yes: Attend Stress Management Classes Psychosocial - Final Assessmen Target Goals Target Goals Psychosocial Test phq-9 Severity See PHQ-9 Score: 5 Referral to Behavioral Health PS - Interventions: Yes: Attend Stress Management Classes Nutrition - 90-Day Assessment Weight Mgt (Other Care) Height: 5 ft 11 in Weight:: 272 lb BMI: 37.9 Nutrition - Final Assessment Weight Mgt (Other Care) Height: 5 ft 11 in Weight:: 272 lb BMI: 37.9
[2025-04-25 14:32] VITALS: BP 112/62; PULSE 78; O2SAT 94
[2025-04-25 15:05] VITALS: BP 112/62; BMI 37.9
[2025-04-25 15:09] VITALS: BP 112/62
[2025-04-25 15:12] VITALS: BMI 37.9
== END | disposition home or self-care (01) ==
PROVIDERS: PCP Family Medicine; Referring Provider Student in an Organized Health Care Education/Training Program; Visit Provider Student in an Organized Health Care Education/Training Program
DX: I25.10 Atherosclerotic heart disease of native coronary artery without angina pectoris (principal)

== ENCOUNTER → 2025-04-26 | Outpatient (CLI) | payer MEDICARE, OTHER, SELFPAY ==
[2025-04-25 15:05] VITALS: BMI 37.9
[2025-04-26 18:06] LABS: Hematocrit 35.1 % (40-54); Hemoglobin 11.2 g/dL (13.0-16.5); Immature Granulocytes Count 0.030 X10^3/uL (0.0-0.0); Mean Corp Hgb Conc 31.9 g/dL (32-36); Mean Corpuscular Volume 89.8 fL (80-94); Mean Platelet Vol. 9.6 fl (6.2-12.0); NRBC Flagged by Analyzer 0 % (0-5); Platelet Count 235 K/mm3 (150-450); RBC Distribution Width CV 12.8 % (11.6-14.6); RBC Distribution Width SD 41.8 fl (35.1-43.9); Red Blood Count 3.91 M/mm3 (4.6-6.2); White Blood Count 6.7 K/mm3 (4.4-11.0)
[2025-04-26 18:29] LABS: AST(SGOT) 14 U/L (<=37); Alanine Aminotransfer ALT/SGPT 11 U/L (<=46); Albumin, Serum 3.7 g/dL (3.4-4.8); Alkaline Phosphatase 95 U/L (40-129); Anion Gap 11 (5-15); BUN 36 mg/dL (4-19); BUN/Creat Ratio 24.7 RATIO (10-20); Calcium,Total 9.2 mg/dL (7.6-11.0); Carbon Dioxide 26.6 mmol/L (21.0-32.0); Chloride 105 mmol/L (98-108); Globulin 2.4 g/dL (2.2-4.2); Glucose 169 mg/dL (70-99); Potassium 3.8 mmol/L (3.3-5.1); Pro- Brain NATRIURETIC PEPTIDE 2637 pg/mL (<=1800)
== END | disposition home or self-care (01) ==
LOC: MFPLAB 15:15
PROVIDERS: PCP Family Medicine; Visit Provider Family Medicine
DX: I50.9 Heart failure, unspecified (principal)
CPT/HCPCS: 36415; 80053; 83880; 85025

== ENCOUNTER → 2025-05-02 | Outpatient (CLI) | payer MEDICARE, OTHER, SELFPAY ==
[2025-04-25 15:05] VITALS: BMI 37.9
[2025-05-02 13:02] LABS: Anion Gap 11 (5-15); BUN 33 mg/dL (4-19); BUN/Creat Ratio 23.6 RATIO (10-20); Calcium,Total 9.3 mg/dL (7.6-11.0); Carbon Dioxide 24.7 mmol/L (21.0-32.0); Chloride 101 mmol/L (98-108); Glucose 109 mg/dL (70-99); Potassium 5.0 mmol/L (3.3-5.1)
== END | disposition home or self-care (01) ==
LOC: LAB 11:24
PROVIDERS: PCP Family Medicine; Referring Provider Student in an Organized Health Care Education/Training Program; Visit Provider Student in an Organized Health Care Education/Training Program
DX: I10 Essential (primary) hypertension (principal)
CPT/HCPCS: 36415; 80048

== ENCOUNTER → 2025-05-16 | Outpatient (CLI) | payer MEDICARE, OTHER, SELFPAY ==
[2025-04-25 15:05] VITALS: BMI 37.9
[2025-05-16 12:41] LABS: Anion Gap 11 (5-15); BUN 27 mg/dL (4-19); BUN/Creat Ratio 21.9 RATIO (10-20); Calcium,Total 9.0 mg/dL (7.6-11.0); Carbon Dioxide 25.5 mmol/L (21.0-32.0); Chloride 102 mmol/L (98-108); Glucose 118 mg/dL (70-99); Potassium 4.3 mmol/L (3.3-5.1)
== END | disposition home or self-care (01) ==
LOC: LAB 11:23
PROVIDERS: PCP Family Medicine; Referring Provider Student in an Organized Health Care Education/Training Program; Visit Provider Student in an Organized Health Care Education/Training Program
DX: I25.10 Atherosclerotic heart disease of native coronary artery without angina pectoris (principal); I50.30 Unspecified diastolic (congestive) heart failure
CPT/HCPCS: 36415; 80048

== ENCOUNTER 2025-05-21 10:15 | Outpatient (RCR) | payer MEDICARE, OTHER, SELFPAY ==
[2025-04-25 15:05] VITALS: BMI 37.9
== END 2025-05-22 23:59 ==
LOC: CR 10:15
PROVIDERS: PCP Family Medicine; Referring Provider Student in an Organized Health Care Education/Training Program; Visit Provider Student in an Organized Health Care Education/Training Program
DX: I21.4 Non-ST elevation (NSTEMI) myocardial infarction (principal); I25.10 Atherosclerotic heart disease of native coronary artery without angina pectoris; I50.9 Heart failure, unspecified; N28.9 Disorder of kidney and ureter, unspecified; E78.5 Hyperlipidemia, unspecified
CPT/HCPCS: 93798

== ENCOUNTER → 2025-06-01 | Outpatient (CLI) | payer MEDICARE, OTHER, SELFPAY ==
[2025-05-24 08:31] VITALS: BMI 39.6
[2025-06-01 14:12] LABS: Mucous, Urine 0 SEEN /hpf (<or=2+); Red Blood Cells-Urine 0 SEEN /hpf (0-5)
[2025-06-01 15:12] LABS: Hematocrit 36.9 % (40-54); Hemoglobin 11.7 g/dL (13.0-16.5); Immature Granulocytes Count 0.030 X10^3/uL (0.0-0.0); Mean Corp Hgb Conc 31.7 g/dL (32-36); Mean Corpuscular Volume 88.5 fL (80-94); Mean Platelet Vol. 10.0 fl (6.2-12.0); NRBC Flagged by Analyzer 0 % (0-5); Platelet Count 234 K/mm3 (150-450); RBC Distribution Width CV 13.3 % (11.6-14.6); RBC Distribution Width SD 43.1 fl (35.1-43.9); Red Blood Count 4.17 M/mm3 (4.6-6.2); White Blood Count 6.4 K/mm3 (4.4-11.0)
[2025-06-01 15:17] LABS: AST(SGOT) 15 U/L (<=37); Alanine Aminotransfer ALT/SGPT 12 U/L (<=46); Albumin, Serum 4.0 g/dL (3.4-4.8); Alkaline Phosphatase 85 U/L (40-129); Anion Gap 11 (5-15); BUN 35 mg/dL (4-19); BUN/Creat Ratio 23.6 RATIO (10-20); Calcium,Total 9.6 mg/dL (7.6-11.0); Carbon Dioxide 27.9 mmol/L (21.0-32.0); Chloride 101 mmol/L (98-108); Cholesterol 115 mg/dL (<=200); Globulin 2.6 g/dL (2.2-4.2); Glucose 103 mg/dL (70-99); Low Density Lipoprotein Calc. 37 mg/dL; Potassium 4.3 mmol/L (3.3-5.1); Triglycerides 112 mg/dL; Very Low Density Lipoprotein 22 mg/dL (5-40); cholesterol:hdl ratio screen 2.06
[2025-06-01 18:31] LABS: Color, Urine Straw (Yellow); Glucose, Dipstick 1000 mg/dl (Normal); Ketone-Dipstick Negative (Negative); Leukocyte Esterase-Dipstick Negative /ul (Negative); Nitrite-Dipstick Negative (Negative); Occult Blood-Urine Negative /ul (Negative); Protein-Dipstick Negative (Negative); Specific Gravity, Urine 1.015 (1.002-1.030); Urine Bilirubin Dipstick Negative (Negative)
[2025-06-01 19:25] LABS: Creatinine, Urine (random) 33.00 mg/dL (39.00-259.00); Microalbumin,Random Urine < 12.0 mg/L (<20 mg/L)
[2025-06-01 22:58] LABS: Squamous Epithelial Cells - UA 0-5 SEEN /hpf (0-5)
== END | disposition home or self-care (01) ==
LOC: MFPLAB 11:53
PROVIDERS: PCP Family Medicine; Visit Provider Family Medicine
DX: E11.8 Type 2 diabetes mellitus with unspecified complications (principal)
CPT/HCPCS: 36415; 80053; 80061; 81001; 82043; 82570; 83036; 85025

== ENCOUNTER → 2025-06-05 | Outpatient (CLI) | payer MEDICARE, OTHER, SELFPAY ==
[2025-05-24 08:31] VITALS: BMI 39.6
[2025-06-05 11:25] LABS: Anion Gap 10 (5-15); BUN 34 mg/dL (4-19); BUN/Creat Ratio 23.4 RATIO (10-20); Calcium,Total 9.3 mg/dL (7.6-11.0); Carbon Dioxide 28.7 mmol/L (21.0-32.0); Chloride 102 mmol/L (98-108); Glucose 148 mg/dL (70-99); Potassium 4.2 mmol/L (3.3-5.1)
== END | disposition home or self-care (01) ==
LOC: MFPLAB 08:44
PROVIDERS: PCP Family Medicine; Visit Provider Family Medicine
DX: R60.9 Edema, unspecified (principal)
CPT/HCPCS: 36415; 80048

== ENCOUNTER → 2025-06-13 | Outpatient (CLI) | payer MEDICARE, OTHER, SELFPAY ==
[2025-05-24 08:31] VITALS: BMI 39.6
[2025-06-13 18:41] LABS: CPK Total, Creatine Kinase 32 U/L (24-195); Ferritin 261 ng/mL (37-417); Magnesium 2.7 mg/dL (1.5-2.2)
== END | disposition home or self-care (01) ==
LOC: MFPLAB 16:25
PROVIDERS: PCP Family Medicine; Visit Provider Family Medicine
DX: M79.10 Myalgia, unspecified site (principal); D64.9 Anemia, unspecified
CPT/HCPCS: 36415; 82550; 82728; 83735

== ENCOUNTER 2025-06-22 10:15 | Outpatient (RCR) | payer MEDICARE, OTHER, SELFPAY ==
[2025-04-25 15:05] VITALS: BMI 37.9
--- NOTE | 2025-05-24 08:20 | PCM.CR.ITP ---
Exercise - Initial Assessment Visit Session #:: 12 Physician Prescribed Exercise Modalities: SciFit Stepper and SciFit Lateral [place] Nutrition - Initial Assessment Weight Mgt (Other Care) Height: 5 ft 11 in Weight:: 284 lb BMI: 39.6 Psychosocial - Initial Assess Referral to Behavioral Health PS - Interventions: Yes: Attend Stress Management Classes Exercise - 30-day Assessment Visit Date of Eval: 05/24/25 Session #:: 12 Physician Prescribed Exercise Modalities: SciFit Stepper and SciFit Lateral Orthotist Prosthetist Frequency: 3x/week for 12 weeks [36 sessions] Intensity: 60-80% of age predicted maximum heart rate reserve Duration: 30 - 45 minutes Current METSs:: 3.3 Target Heart Rate:: 82-103 Current RPE:: 13-15 Maximum Excercise HR:: 86 Resting Blood Pressure: 140/70 Maximum Exercise Blood Pressure: 142/52 EKG Type: NSR w/occas PVC and slight ST depression. Outcomes & Goals Goals:: Verbalizes understanding of THR, RPE & goal METS by session 6, Documents in home exercise log/reports 30 min aerobic 5 day/wk by DC, Demonstrates accurate pulse taking by DC and Other additional outcome/goals: see below Intervention & Plan Exercise Program Goals: Instruct on personal THR & RPE, Instruct on MET level & personal MET goal, Show patient to take own pulse /validate performance until accurate, Instruct on home exercise and Other additional plan/int Physical Activity Home Exercise Physical Activity - Home Exercise: Safe Exercise, Warm-up, Self-monitoring, Cool-Down, Home Exercise > 30 min Daily and Sitting Time <3 hours/daily Outcomes & Goals Outcomes/Goals: Demonstrates correct Warm-up/exercise Cool-Down (S3) if = 2.5 METs, Verbalizes symptoms of exercise intolerance by Session 3 (S3), Demonstrate safe equipment use (S3) & follows exercise prescrition (6) and Other: See below Intervention & Plan Plan/Intervention: Instruct warm-up & cool-down if exercising at > 2 METs, Instruct on symptoms of exercise intolerance & actions to take, Instruct & monitor on saf, Assess intial functional capacity & safety risk and Other See below 30-day Reassessments 30 day Reassessments:: Progressing Reassessment Notes & Comments:: Pt oriented to equipment. RPE explained to pt. Pt demonstrates understanding in his daily sessions. Exercise - 60-day Assessment Physician Prescribed Exercise Modalities: SciFit Stepper and SciFit Lateral Orthotist Prosthetist Exercise - 90-day Assessment Physician Prescribed Exercise Modalities: SciFit Stepper and SciFit Lateral [place] Exercise - Final/Discharge Physician Prescribed Exercise Modalities: SciFit Stepper and SciFit Lateral Orthotist Prosthetist Nutrition - 30-Day Assessment Program Goals Nutrition Program Goals Patient has diagnosis of Hyperlipidemia (ICD E78)?: Yes Visit Date of Eval: 05/24/25 Session #:: 12 (Nutrition survey score of 5) Diabetes (Other Core Measures) Diabetes Type: Diagnosis Type II ICD-10 E11 Non-Insulin Dependent?: Yes Do you monitor your blood sugar at home?: No Weight Mgt (Other Care) Height: 5 ft 11 in Weight:: 284 lb BMI: 39.6 Diagnosis Overweight/Obesity BMI> 30% ICD-10 E66: Yes Diagnosis High BMI/Morbid Obesity BMI> 35% ICD-10 Z68: Yes Outcomes/Goals: Pt sets, maintains & shows weight loss goal & trend during rehab and Other additional outcomes/goals Intervention/Plan: Instruct on ideal BMI & set weight loss goal w/patient, Assist pt to ID & incorporate diet changes for weight loss by S9, Refer to Structured Weight Loss program as appropriate, Encourage goal of using 250-300dcal per session for weight loss and Other additional plan/interventions 30 day Reassessments:: Progressing Reassessment Notes & Comments:: Weight loss and a low sodium diet encouraged. Pt to attend nutrition classes with our internal grinder set up operator. Healthy Eating Habits Will attend diet classes:: Yes Outcomes/Goals:: Consume diet rich in vegs,fruits,whole grain/high fiber,fish,lean meat, Limit sat/trans fats,cholesterol & added salts & sugars and Other additional outcome/goals: Intervention/Plan:: Assess current eating habits and Other Additional plan/interventions 30-day Reassessments:: Progressing Reassessment Notes & Comments:: Pt is scheduled to attend nutrition class. Low sodium heart healthy diet encouraged. Education Gave educational materials for:: Signs & symptoms of hypoglycemia, Signs & symptoms of hyperglycemia, Relate diabetes to coronary artery disease and Healthy eating Nutrition - 60-Day Assessment Weight Mgt (Other Care) Height: 5 ft 11 in Weight:: 284 lb BMI: 39.6 Core - 30-Day Assessment Visit Date of Eval: 05/24/25 Session #:: 12 Medication Compliance Preventative Medication(s):: Aspirin, NEVILLE inhibitor, Statin/lipid and Beta kalani H/O mental health issues: depression, anxiety, or addiction?: No Doesn?t believe in the benefits of treatment?: No Believes medications are unnecessary or harmful?: No Has a concern about medication side effects?: No Expresses concern over the cost of medications?: No Outcomes/Goals: Verbalizes medications,desired effect & common side effects @ DC, Pt self-reports following medication regimen, Keeps card in wallet w/medications listed by DC and Other additional outcome/goals: Interventions/plans: Instruct on medication effects & side effects, Review medication list w/patient every two weeks, Instruct importance of taking meds as ordered & assist problem solving and Other additional Tobacco Use Tobacco Use: Non-smoker Hypertension Resting Blood Pressure:: 140/70 [place] [employer] Hypertension Guidelines Peak Exercise Blood Pressure:: 142/52 Outcomes/Goals: Able to verbalize/achieve optimal blood pressure <130/80, Incorporates diet changes & exercise for blood pressure control by DC and Other additional outcomes/goals Interventions/plan: Instruct on optimal blood pressure, hypertension & medications, Instruct on effects of sodium, alcohol, stress, exercise &hypertension and Other additional plan/interventions 30 day Reassessments:: Progressing Reassessment Notes & Comments:: Pt's BP's are within AHA normal limits on some days. Weight loss and a low sodium heart healthy diet encouraged. Will continue to monitor and report to pt's physician if necessary. Tobacco Cessation Referral Smoking Cessation Referral:: No Individual Education/Counseling:: No Education Schedule Given:: Yes Psychosocial - 30-Day Assess VIsit Date of Eval: 05/24/25 Session #:: 12 History of previous Mental disease:: No Psychosocial Test Tool Used:: PHQ-9 Questionnaire phq-9 Severity See PHQ-9 Score: 5 Referral to Behavioral Health PS - Interventions: Yes: Attend Stress Management Classes Outcomes/Goals: See list Psychosocial Outcomes/Goals:: ID's personal stressors & 2 strategies to manage stress by discharge and Other Additional outcome/goals: Intervention/Plan: See List Interventions/Plan:: Assess stressors,coping strategies & signs of derpression on admission, Instruct/assist pt to develop coping & personal stress Mgt strategies, Refer to Behavioral Health if appropriate, Refer to Physician if appropriate, Instruct patient to recognize signs & symptoms of depression, Instruct patient to recog and Other additional plan/intervention 30-day Reassessments: 30 day Reassessments:: Progressing Reassessment Notes & Comments:: Pt denies any psychosocial issues at this time. Pt to attend stress management class. Will reassess every 30 days. Psychosocial - 60-Day Assess Referral to Behavioral Health PS - Interventions: Yes: Attend Stress Management Classes Outcomes/Goals: See list Psychosocial Outcomes/Goals:: ID's personal stressors & 2 strategies to manage stress by discharge and Other Additional outcome/goals: Psychosocial - 90-Day Assess Referral to Behavioral Health PS - Interventions: Yes: Attend Stress Management Classes Psychosocial - Final Assessmen Referral to Behavioral Health PS - Interventions: Yes: Attend Stress Management Classes Nutrition - 90-Day Assessment Weight Mgt (Other Care) Height: 5 ft 11 in Weight:: 284 lb BMI: 39.6 Nutrition - Final Assessment Weight Mgt (Other Care) Height: 5 ft 11 in Weight:: 284 lb BMI: 39.6
[2025-05-24 08:31] VITALS: BP 140/70; BMI 39.6
--- NOTE | 2025-06-21 07:31 | PCM.CR.ITP ---
Exercise - Initial Assessment Physician Prescribed Exercise Modalities: SciFit Stepper and SciFit Lateral [employer] Leader Nutrition - Initial Assessment Weight Mgt (Other Care) Height: 5 ft 11 in Weight:: 270 lb 8 oz BMI: 37.7 Core - Initial Assessment Hypertension Resting Blood Pressure:: 130/74 [place] [employer] Hypertension Guidelines Psychosocial - Initial Assess Referral to Behavioral Health PS - Interventions: Yes: Attend Stress Management Classes Exercise - 30-day Assessment Physician Prescribed Exercise Modalities: SciFit Stepper and SciFit Lateral Marketing Communications Leader Exercise - 60-day Assessment Visit Date of Eval: 06/21/25 Session #:: 24 Physician Prescribed Exercise Modalities: SciFit Stepper and SciFit Lateral Marketing Communications Leader Frequency: 3x/week for 12 weeks [36 sessions] Intensity: 60-80% of age predicted maximum heart rate reserve Duration: 30 - 45 minutes Current METSs:: 3.3 Target Heart Rate:: 82-103 Current RPE:: 14-14.5 Maximum Excercise HR:: 87 Resting Blood Pressure: 136/68 Maximum Exercise Blood Pressure: 128/60 EKG Type: SB-NSR w/ occas multifocal PVC's Outcomes & Goals Goals:: Verbalizes understanding of THR, RPE & goal METS by session 6, Documents in home exercise log/reports 30 min aerobic 5 day/wk by DC, Demonstrates accurate pulse taking by DC and Other additional outcome/goals: see below Intervention & Plan Exercise Program Goals: Instruct on personal THR & RPE, Instruct on MET level & personal MET goal, Show patient to take own pulse /validate performance until accurate, Instruct on home exercise and Other additional plan/int Physical Activity Home Exercise Physical Activity - Home Exercise: Safe Exercise, Warm-up, Self-monitoring, Cool-Down, Home Exercise > 30 min Daily and Sitting Time <3 hours/daily Outcomes & Goals Outcomes/Goals: Demonstrates correct Warm-up/exercise Cool-Down (S3) if = 2.5 METs, Verbalizes symptoms of exercise intolerance by Session 3 (S3), Demonstrate safe equipment use (S3) & follows exercise prescrition (6) and Other: See below Intervention & Plan Plan/Intervention: Instruct warm-up & cool-down if exercising at > 2 METs, Instruct on symptoms of exercise intolerance & actions to take, Instruct & monitor on saf, Assess intial functional capacity & safety risk and Other See below 30-day Reassessments 30 day Reassessments:: Progressing Reassessment Notes & Comments:: Proper warm up and cool down demonstrated and explained to pt. Pt is able to return demonstration in their daily sessions. Exercise - 90-day Assessment Physician Prescribed Exercise Modalities: SciFit Stepper and SciFit Lateral [place] Exercise - Final/Discharge Physician Prescribed Exercise Modalities: SciFit Stepper and SciFit Lateral Marketing Communications Leader Nutrition - 30-Day Assessment Weight Mgt (Other Care) Height: 5 ft 11 in Weight:: 270 lb 8 oz BMI: 37.7 Nutrition - 60-Day Assessment Program Goals Nutrition Program Goals Patient has diagnosis of Hyperlipidemia (ICD E78)?: Yes Visit Date of Eval: 06/21/25 Session #:: 24 (nutrition survey score of 5.) Cholesterol/Lipids (Other Core Measures) Determine presence & major risk factors that modify LDL goal: Cigarette smoking, Hypertension or hypertensive medication, Low HDL cholesterol <40 mg/dL*, Family history of premature CHD in Male < 55 years: female <65 yearsFa and Age men > 45 years; women >/= 55 years Outcomes/Goals: Pt IDs own risk factors & lifestyle modifications by Session 10, Verbalizes symptoms of angina & response by session 3., Pt independently manages and Other Additional Outcomes/Goals: Intervention/Plan: Advocate for lipid panel cholesterol medication if applicable, Instruct on personal lipid levels & lipid goals/NCEP guidelines, Instruct on cholesterol and Other additional plan/int Diabetes (Other Core Measures) Diabetes Type: Diagnosis Type II ICD-10 E11 Non-Insulin Dependent?: Yes Do you monitor your blood sugar at home?: No 30-day Reassessments:: Progressing Reassessment Notes & Comments:: Pt encouraged to monitor her BS at home as instructed by her physician. Weight Mgt (Other Care) Height: 5 ft 11 in Weight:: 270 lb 8 oz BMI: 37.7 Diagnosis Overweight/Obesity BMI> 30% ICD-10 E66: Yes Diagnosis High BMI/Morbid Obesity BMI> 35% ICD-10 Z68: Yes Outcomes/Goals: Pt sets, maintains & shows weight loss goal & trend during rehab and Other additional outcomes/goals Intervention/Plan: Instruct on ideal BMI & set weight loss goal w/patient, Assist pt to ID & incorporate diet changes for weight loss by S9, Refer to Structured Weight Loss program as appropriate, Encourage goal of using 250-300dcal per session for weight loss and Other additional plan/interventions 30 day Reassessments:: Progressing Reassessment Notes & Comments:: Pt has lost 13.5 lbs in the last 30 days. Pt is scheduled to attend nutrition classes. Low sodium heart healthy diet encouraged. Healthy Eating Habits Will attend diet classes:: Yes Outcomes/Goals:: Consume diet rich in vegs,fruits,whole grain/high fiber,fish,lean meat, Limit sat/trans fats,cholesterol & added salts & sugars and Other additional outcome/goals: Intervention/Plan:: Assess current eating habits and Other Additional plan/interventions 30-day Reassessments:: Progressing Reassessment Notes & Comments:: Pt is scheduled to attend nutrition classes. Low sodium heart healthy diet encouraged. Education Gave educational materials for:: Signs & symptoms of hypoglycemia, Signs & symptoms of hyperglycemia, Relate diabetes to coronary artery disease and Healthy eating Core - Final Assessment Hypertension Resting Blood Pressure:: 130/74 [place] [employer] Hypertension Guidelines Core - 60-Day Assessment Visit Date of Eval: 06/21/25 Session #:: 24 Medication Compliance Preventative Medication(s):: Aspirin, NEVILLE inhibitor, Statin/lipid and Beta kalani H/O mental health issues: depression, anxiety, or addiction?: No Doesn?t believe in the benefits of treatment?: No Believes medications are unnecessary or harmful?: No Has a concern about medication side effects?: No Expresses concern over the cost of medications?: No Outcomes/Goals: Verbalizes medications,desired effect & common side effects @ DC, Pt self-reports following medication regimen, Keeps card in wallet w/medications listed by DC and Other additional outcome/goals: Interventions/plans: Instruct on medication effects & side effects, Review medication list w/patient every two weeks, Instruct importance of taking meds as ordered & assist problem solving and Other additional Tobacco Use Tobacco Use: Non-smoker Hypertension Resting Blood Pressure:: 136/68 Resting Blood Pressure:: 130/74 [place] [employer] Hypertension Guidelines Peak Exercise Blood Pressure:: 128/60 Outcomes/Goals: Able to verbalize/achieve optimal blood pressure <130/80, Incorporates diet changes & exercise for blood pressure control by DC and Other additional outcomes/goals Interventions/plan: Instruct on optimal blood pressure, hypertension & medications, Instruct on effects of sodium, alcohol, stress, exercise &hypertension and Other additional plan/interventions 30 day Reassessments:: Progressing Reassessment Notes & Comments:: Pt's BP's are within AHA normal limits on most days. Will continue to monitor and report to pt's physician if necessary. Tobacco Cessation Referral Smoking Cessation Referral:: No Individual Education/Counseling:: No Education Schedule Given:: Yes Psychosocial - 30-Day Assess Referral to Behavioral Health PS - Interventions: Yes: Attend Stress Management Classes Outcomes/Goals: See list Psychosocial Outcomes/Goals:: ID's personal stressors & 2 strategies to manage stress by discharge and Other Additional outcome/goals: Psychosocial - 60-Day Assess VIsit Date of Eval: 06/21/25 Session #:: 24 History of previous Mental disease:: No Psychosocial Test Tool Used:: [employer] QOL Cardiac and PHQ-9 Questionnaire phq-9 Severity See PHQ-9 Score: 5 Referral to Behavioral Health PS - Interventions: Yes: Attend Stress Management Classes Outcomes/Goals: See list Psychosocial Outcomes/Goals:: ID's personal stressors & 2 strategies to manage stress by discharge and Other Additional outcome/goals: Intervention/Plan: See List Interventions/Plan:: Assess stressors,coping strategies & signs of derpression on admission, Instruct/assist pt to develop coping & personal stress Mgt strategies, Refer to Behavioral Health if appropriate, Refer to Physician if appropriate, Instruct patient to recognize signs & symptoms of depression, Instruct patient to recog and Other additional plan/intervention 30-day Reassessments: 30 day Reassessments:: Progressing Reassessment Notes & Comments:: Pt denies any psychosocial issues at this time. Pt to attend stress management class. Will reassess every 30 days. Psychosocial - 90-Day Assess Referral to Behavioral Health PS - Interventions: Yes: Attend Stress Management Classes Psychosocial - Final Assessmen Referral to Behavioral Health PS - Interventions: Yes: Attend Stress Management Classes Nutrition - 90-Day Assessment Weight Mgt (Other Care) Height: 5 ft 11 in Weight:: 270 lb 8 oz BMI: 37.7 Nutrition - Final Assessment Weight Mgt (Other Care) Height: 5 ft 11 in Weight:: 270 lb 8 oz BMI: 37.7
[2025-06-21 07:45] VITALS: BP 130/74; BP 136/68; BMI 37.7
== END 2025-06-22 23:59 ==
LOC: CR 10:15
PROVIDERS: PCP Family Medicine; Referring Provider Student in an Organized Health Care Education/Training Program; Visit Provider Student in an Organized Health Care Education/Training Program
DX: I21.4 Non-ST elevation (NSTEMI) myocardial infarction (principal); I25.10 Atherosclerotic heart disease of native coronary artery without angina pectoris; I50.9 Heart failure, unspecified; N28.9 Disorder of kidney and ureter, unspecified; E78.5 Hyperlipidemia, unspecified; I11.0 Hypertensive heart disease with heart failure
CPT/HCPCS: 93798; 97802

== ENCOUNTER → 2025-06-27 | Outpatient (CLI) | payer MEDICARE, OTHER, SELFPAY ==
[2025-05-24 08:31] VITALS: BMI 39.6
[2025-06-21 07:45] VITALS: BMI 37.7
--- NOTE | 2025-06-27 07:54 | ART_ITS ---
Reason For Study Reason For Study: Claudication Procedure A bilateral lower extremity continuous wave Doppler with analog waveform analysis and ankle brachial indexes. Left Segmental Pressures Left brachial= 133mmHg. Left posterior tibial artery = 86mmHg. Left dorsalis pedis artery = 82mmHg. Left digit = 63 mmHg. The left dorsalis pedis waveforms are monophasic. The left posterior tibial artery waveforms are biphasic. Right Segmental Pressures Right brachial= 135mmHg. Right posterior tibial artery = 147mmHg. Right dorsalis pedis artery = 134mmHg. Right digit = 128 mmHg. The right dorsalis pedis waveforms are triphasic. The right posterior tibial artery waveforms are triphasic. Indices The right ankle brachial index by the dorsalis pedis is 0.99. The right ankle brachial index by the posterior tibial artery is 1.09. The right digital-brachial index is 0.95. The left ankle brachial index by the dorsalis pedis is 0.61. The left ankle brachial index by the posterior tibial artery is 0.64. The left digital-brachial index is 0.47. VL/Ankle Brachial Index Interpretation Summary Triphasic Doppler waveforms are noted at ankle level on the right. Biphasic and monophasic Doppler waveforms are noted at ankle level on the left. Pulse-volume recordings appear diminished at ankle and digital level on the left. The resting right ankle-brachial index is normal. The resting left ankle-brachial i ndex is moderately diminished. The right digital-brachial index is normal. The left digital-brachial index is moderately diminished. Arterial flow appears normal in the right lower extremity. 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 Ordering Physician: Dejuan Sanders Referring Physician: Dejuan Sanders Performed By: Silvana Delgado RVBri
== END | disposition home or self-care (01) ==
LOC: CVS 07:53
PROVIDERS: PCP Family Medicine; Referring Provider Family Medicine; Visit Provider Family Medicine
DX: I73.9 Peripheral vascular disease, unspecified (principal)
CPT/HCPCS: 93922

== ENCOUNTER 2025-07-18 10:15 | Outpatient (RCR) | payer MEDICARE, OTHER, SELFPAY ==
[2025-06-21 07:45] VITALS: BMI 37.7
--- NOTE | 2025-07-17 13:12 | PCM.CR.ITP ---
Exercise - Initial Assessment Physician Prescribed Exercise Modalities: SciFit Stepper and SciFit Lateral Electronic Development Technician Nutrition - Initial Assessment Weight Mgt (Other Care) Height: 5 ft 11 in Weight:: 268 lb BMI: 37.3 Psychosocial - Initial Assess Referral to Behavioral Health PS - Interventions: Yes: Attend Stress Management Classes Exercise - 30-day Assessment Physician Prescribed Exercise Modalities: SciFit Stepper and SciFit Lateral Electronic Development Technician Exercise - 60-day Assessment Physician Prescribed Exercise Modalities: SciFit Stepper and SciFit Lateral [place] Exercise - 90-day Assessment Visit Date of Eval: 07/17/25 Session #:: 34 Physician Prescribed Exercise Modalities: SciFit Stepper and SciFit Lateral Electronic Development Technician Frequency: 3x/week for 12 weeks [36 sessions] Intensity: 60-80% of age predicted maximum heart rate reserve Current METSs:: 3.8 Target Heart Rate:: 80-110 Current RPE:: 14-15 Maximum Excercise HR:: 89 Resting Blood Pressure: 126/58 Maximum Exercise Blood Pressure: 126/58 EKG Type: SB-NSR w/ occas multifocal PVC's Outcomes & Goals Goals:: Verbalizes understanding of THR, RPE & goal METS by session 6, Documents in home exercise log/reports 30 min aerobic 5 day/wk by DC, Demonstrates accurate pulse taking by DC and Other additional outcome/goals: see below Intervention & Plan Exercise Program Goals: Instruct on personal THR & RPE, Instruct on MET level & personal MET goal, Show patient to take own pulse /validate performance until accurate, Instruct on home exercise and Other additional plan/int Physical Activity Home Exercise Physical Activity - Home Exercise: Safe Exercise, Warm-up, Self-monitoring, Cool-Down, Home Exercise > 30 min Daily and Sitting Time <3 hours/daily Outcomes & Goals Outcomes/Goals: Demonstrates correct Warm-up/exercise Cool-Down (S3) if = 2.5 METs, Verbalizes symptoms of exercise intolerance by Session 3 (S3), Demonstrate safe equipment use (S3) & follows exercise prescrition (6) and Other: See below Intervention & Plan Plan/Intervention: Instruct warm-up & cool-down if exercising at > 2 METs, Instruct on symptoms of exercise intolerance & actions to take, Instruct & monitor on saf, Assess intial functional capacity & safety risk and Other See below 30-day Reassessments 30 day Reassessments:: Met Reassessment Notes & Comments:: Pt has met his exercise goals. Pt was working at 3.8 METS. Pt will be given his exercise prescription as well as community resources to continue his exercise. Pt understands the importance of warming up and cooling down. Pt also understands symptoms of exercise intolerance and how to exercise safely. Exercise - Final/Discharge Physician Prescribed Exercise Modalities: SciFit Stepper and SciFit Lateral [place] Nutrition - 30-Day Assessment Weight Mgt (Other Care) Height: 5 ft 11 in Weight:: 268 lb BMI: 37.3 Nutrition - 60-Day Assessment Weight Mgt (Other Care) Height: 5 ft 11 in Weight:: 268 lb BMI: 37.3 Core - 30-Day Assessment Hypertension [place] [employer] Hypertension Guidelines Reassessment Notes & Comments:: Pt's BP's are within AHA normal limits on most days. Weight loss and a low sodium heart healthy diet encouraged. Will continue to monitor and report to pt's physician if necessary. Core - Final Assessment Hypertension [place] [employer] Hypertension Guidelines Reassessment Notes & Comments:: Pt's BP's are within AHA normal limits on most days. Weight loss and a low sodium heart healthy diet encouraged. Will continue to monitor and report to pt's physician if necessary. Core - 90 Day Assessment Visit Date of Eval: 07/17/25 Session #:: 34 Medication Compliance Preventative Medication(s):: Aspirin, NEVILLE inhibitor, Statin/lipid and Beta kalani H/O mental health issues: depression, anxiety, or addiction?: No Doesn’t believe in the benefits of treatment?: No Believes medications are unnecessary or harmful?: No Has a concern about medication side effects?: No Expresses concern over the cost of medications?: No Outcomes/Goals: Verbalizes medications,desired effect & common side effects @ DC, Pt self-reports following medication regimen, Keeps card in wallet w/medications listed by DC and Other additional outcome/goals: Interventions/plans: Instruct on medication effects & side effects, Review medication list w/patient every two weeks, Instruct importance of taking meds as ordered & assist problem solving and Other additional Tobacco Use Tobacco Use: Non-smoker Hypertension Resting Blood Pressure:: 126/58 [place] [employer] Hypertension Guidelines Peak Exercise Blood Pressure:: 126/58 Outcomes/Goals: Able to verbalize/achieve optimal blood pressure <130/80, Incorporates diet changes & exercise for blood pressure control by DC and Other additional outcomes/goals Interventions/plan: Instruct on optimal blood pressure, hypertension & medications, Instruct on effects of sodium, alcohol, stress, exercise &hypertension and Other additional plan/interventions 30 day Reassessments:: Met Reassessment Notes & Comments:: Pt's BP's are within AHA normal limits on most days. Weight loss and a low sodium heart healthy diet encouraged. Will continue to monitor and report to pt's physician if necessary. Tobacco Cessation Referral Smoking Cessation Referral:: No Individual Education/Counseling:: No Education Schedule Given:: Yes Psychosocial - 30-Day Assess Referral to Behavioral Health PS - Interventions: Yes: Attend Stress Management Classes Psychosocial - 60-Day Assess Referral to Behavioral Health PS - Interventions: Yes: Attend Stress Management Classes Psychosocial - 90-Day Assess VIsit Date of Eval: 07/17/25 Session #:: 34 History of previous Mental disease:: No Psychosocial Test Tool Used:: Surplex QOL Cardiac and PHQ-9 Questionnaire phq-9 Severity See PHQ-9 Score: 5 Referral to Behavioral Health PS - Interventions: Yes: Attend Stress Management Classes Outcomes/Goals: See list Psychosocial Outcomes/Goals:: ID's personal stressors & 2 strategies to manage stress by discharge and Other Additional outcome/goals: Intervention/Plan: See List Interventions/Plan:: Assess stressors,coping strategies & signs of derpression on admission, Instruct/assist pt to develop coping & personal stress Mgt strategies, Refer to Behavioral Health if appropriate, Refer to Physician if appropriate, Instruct patient to recognize signs & symptoms of depression, Instruct patient to recog and Other additional plan/intervention 30-day Reassessments: 30 day Reassessments:: Met Reassessment Notes & Comments:: Pt denies any psychosocial issues at this time. Pt has attended stress management class. Psychosocial - Final Assessmen Referral to Behavioral Health PS - Interventions: Yes: Attend Stress Management Classes Nutrition - 90-Day Assessment Program Goals Nutrition Program Goals Patient has diagnosis of Hyperlipidemia (ICD E78)?: No Visit Date of Eval: 07/17/25 (Nutrition survey score of 5.) Session #:: 34 Cholesterol/Lipids (Other Core Measures) Determine presence & major risk factors that modify LDL goal: Cigarette smoking, Hypertension or hypertensive medication, Low HDL cholesterol <40 mg/dL*, Family history of premature CHD in Male < 55 years: female <65 yearsFa and Age men > 45 years; women >/= 55 years Outcomes/Goals: Pt IDs own risk factors & lifestyle modifications by Session 10, Verbalizes symptoms of angina & response by session 3., Pt independently manages and Other Additional Outcomes/Goals: Intervention/Plan: Advocate for lipid panel cholesterol medication if applicable, Instruct on personal lipid levels & lipid goals/NCEP guidelines, Instruct on cholesterol and Other additional plan/int Diabetes (Other Core Measures) Diabetes Type: Diagnosis Type II ICD-10 E11 Non-Insulin Dependent?: Yes 30-day Reassessments:: Progressing Reassessment Notes & Comments:: Pt encouraged to monitor her BS at home as instructed by his physician. Weight Mgt (Other Care) Height: 5 ft 11 in Weight:: 268 lb BMI: 37.3 Diagnosis Overweight/Obesity BMI> 30% ICD-10 E66: Yes Diagnosis High BMI/Morbid Obesity BMI> 35% ICD-10 Z68: Yes Outcomes/Goals: Pt sets, maintains & shows weight loss goal & trend during rehab and Other additional outcomes/goals Intervention/Plan: Instruct on ideal BMI & set weight loss goal w/patient, Assist pt to ID & incorporate diet changes for weight loss by S9, Refer to Structured Weight Loss program as appropriate, Encourage goal of using 250-300dcal per session for weight loss and Other additional plan/interventions Healthy Eating Habits Will attend diet classes:: Yes Outcomes/Goals:: Consume diet rich in vegs,fruits,whole grain/high fiber,fish,lean meat, Limit sat/trans fats,cholesterol & added salts & sugars and Other additional outcome/goals: Intervention/Plan:: Assess current eating habits and Other Additional plan/interventions 30-day Reassessments:: Progressing Reassessment Notes & Comments:: Pt has lost 2.5 lbs in the last 30 days. Pt has attended nutrition class. Pt understands the benefits of a hearth healthy low sodium diet. Pt has been given the tools to maintain a healthy diet. Education Gave educational materials for:: Signs & symptoms of hypoglycemia, Signs & symptoms of hyperglycemia, Relate diabetes to coronary artery disease and Healthy eating Nutrition - Final Assessment Weight Mgt (Other Care) Height: 5 ft 11 in Weight:: 268 lb BMI: 37.3
[2025-07-17 13:22] VITALS: BP 126/58; BMI 37.3
== END 2025-07-22 23:59 ==
LOC: CR 10:15
PROVIDERS: PCP Family Medicine; Referring Provider Student in an Organized Health Care Education/Training Program; Visit Provider Student in an Organized Health Care Education/Training Program
DX: I21.4 Non-ST elevation (NSTEMI) myocardial infarction (principal); I25.10 Atherosclerotic heart disease of native coronary artery without angina pectoris; I50.9 Heart failure, unspecified; N18.9 Chronic kidney disease, unspecified; E78.5 Hyperlipidemia, unspecified; I11.0 Hypertensive heart disease with heart failure
CPT/HCPCS: 93798

== ENCOUNTER 2025-07-23 10:11 | Outpatient (RCR) | payer MEDICARE, OTHER, SELFPAY ==
[2025-07-17 13:22] VITALS: BMI 37.3
== END 2025-08-22 23:59 ==
LOC: CR 10:11
PROVIDERS: PCP Family Medicine; Referring Provider Student in an Organized Health Care Education/Training Program; Visit Provider Student in an Organized Health Care Education/Training Program
DX: I21.4 Non-ST elevation (NSTEMI) myocardial infarction (principal); I25.10 Atherosclerotic heart disease of native coronary artery without angina pectoris; I50.9 Heart failure, unspecified; N28.9 Disorder of kidney and ureter, unspecified; E78.5 Hyperlipidemia, unspecified; I11.0 Hypertensive heart disease with heart failure
CPT/HCPCS: 93798

== ENCOUNTER → 2025-08-07 | Outpatient (CLI) | payer MEDICARE, OTHER, SELFPAY ==
[2025-07-17 13:22] VITALS: BMI 37.3
--- NOTE | 2025-08-07 09:48 | RAD_ITS ---
PROCEDURE: LUMBAR SPINE 2 OR 3 VIEWS 08/07/2025 REASON FOR EXAM: PAIN TECHNIQUE: Procedure Code: RADSPLL Modality: DX Procedure: LUMBAR SPINE 2 OR 3 VIEWS COMPARISON: August 26, 2023 FINDINGS: Lumbar spine three views. There is grade 1 spondylolisthesis at L4-5, 0.3 cm. There is 10% loss of vertebral body height anteriorly at L1, similar to the prior. There is 20% loss of vertebral body height at L2, similar to the prior. There is loss of disc height from L2-4, and at L5-S1. There is moderate facet sclerosis. Mineralization is normal. Vascular calcifications are visible. Hardware is partly visible in the left hip. Surgical clips are noted in the right upper quadrant. RAD/Lumbar Spine 2 or 3 Views IMPRESSION: There is grade 1 spondylolisthesis at L4-5, 0.3 cm. There is 10% loss of vertebral body height anteriorly at L1, similar to the tony or. There is 20% loss of vertebral body height at L2, similar to the prior. There is loss of disc height from L2-4, and at L5-S1. Reading Location: [facility]
--- NOTE | 2025-08-07 12:24 | US_ITS ---
PROCEDURE: THYROID, 08/07/2025 REASON FOR EXAM: THYROID NODULE TECHNIQUE: Grayscale and color Doppler imaging of the thyroid was performed. COMPARISON: 04/13/2024 FINDINGS: Exam limited by marked thyromegaly and likely substernal extension. Right lobe measures 10.0 x 3.1 x 4.0cm. Heterogeneous in areas with difficult delineation of numerous ill-defined nodules versus pseudo nodules: *23 x 21 x 16 mm, mostly solid, partially hypoechoic, ill-defined margins, possible pseudonodule, TI-RADS 4. Unclear correlate previously. *20 x 22 x 20 mm, solid, mostly partially hypoechoic, ill-defined margins, possible pseudo margins, TI-RADS 4. Unclear correlate previously. *53 x 51 x 43 mm, mostly solid, mostly hypoechoic, ill-defined margins, possible pseudonodule, TI-RADS 3. Unclear correlate previously. *15 x 11 x 10 mm, spongiform, not suspicious. Left lobe measures 11.0 x 3.5 x 5.9 cm. Heterogeneous in areas. Heterogeneous in areas with difficult delineation of numerous ill-defined nodules versus pseudo nodules: *11 x 8 x 6 mm, mixed cystic and solid, hypoechoic solid components, TI-RADS 3, no follow-up. *13 x 14 x 9 mm, mixed cystic and solid, hypoechoic solid elements, TI-RADS 3, no follow-up. *44 x 32 x 34 mm, mixed cystic and solid, mostly solid, hypoechoic, TI-RADS 4. Probably previously corresponding to a nodule measuring 39 x 29 x 27 mm and appearing more isoechoic. *18 x 12 x 10 mm, mixed cystic and solid, mostly solid, hypoechoic, punctate echogenic foci, TI-RADS 5. Unclear correlate previously. Isthmus measures 18 mm, thickened. Nodules as below: *35 x 38 x 28 mm, mostly solid, partially hypoechoic, macrocalcifications, TI- RADS 4. Probably corresponding to a nodule previously measuring 43 x 23 x 34 mm. *14 x 21 x 20 mm, mostly solid, isoechoic, ill-defined margins, possible pseudonodule, TI-RADS 3. Unclear correlate previously. US/Thyroid IMPRESSION: 1. Very somewhat limited challenging evaluation of multinodular goiter as above ; very difficult to impossible to reproducibly delineate ill-defined nodules versus pseudo nodules in some areas, evaluation a lso limited due to marked thyromegaly with probable substernal extension. Correlate for thyroiditis. 2. Assessment is TI-RADS 5. Multiple nodules meet criteria for FNA as per the below, including a 23 mm TI-RADS 4 nodule on the RIGHT, a 22 mm TI-RADS 4 nodule on the RIGHT, a 53 mm TI-RADS 3 nodule on the R IGHT, a 44 mm TI-RADS 4 nodule on the LEFT, an 18 mm TI-RADS 5 nodule in the RIGHT, and a 38 mm TI-RADS 4 nodule on the LEFT. At a minimum, FNA of at least the TI-RADS 5 nodule on the LEFT and dominant TI-RADS 4 nodules should be considered. Additionally, recommend follow-up in 1 year as per the below. Thyroid nodule managment recommendations per TI-RADS: TI-RADS 2: Not Suspicious: No FNA. Clincial follow-up recommended. TI-RADS 3: FNA if >= 25 mm; Follow if >= 15 mm at 1, 3, and 5 years. TI-RADS 4: FNA if >= 15 mm; Follow if >= 10 mm at 1, 2, 3, and 5 years. TI-RADS 5: FNA if >= 10 mm; Follow if >= 5 mm annually until 5 years. Enlargment is defined as ?20% increase in at least two nodule dimensions, with a minimal increase of 2 mm or ?50% or greater increase in volume. Recommendations per ACR Thyroid Imaging, Reporting and Data System (TI-RADS): Torsten vela Paper of the ACR TI-RADS Committee, 2017 ([email or web address].[email or web address].com/[email or web address]) Reading Location: [id number]
== END | disposition home or self-care (01) ==
LOC: US 12:13
PROVIDERS: PCP Family Medicine; Referring Provider Surgery; Visit Provider Surgery
DX: E04.2 Nontoxic multinodular goiter (principal); M48.062 Spinal stenosis, lumbar region with neurogenic claudication
CPT/HCPCS: 72100; 76536

== ENCOUNTER → 2025-08-09 | Outpatient (CLI) | payer MEDICARE, OTHER, SELFPAY ==
[2025-07-17 13:22] VITALS: BMI 37.3
[2025-08-09 11:20] LABS: Hematocrit 44.8 % (40-54); Hemoglobin 14.0 g/dL (13.0-16.5); Immature Granulocytes Count 0.020 X10^3/uL (0.0-0.0); Mean Corp Hgb Conc 31.3 g/dL (32-36); Mean Corpuscular Volume 87.5 fL (80-94); Mean Platelet Vol. 10.2 fl (6.2-12.0); NRBC Flagged by Analyzer 0 % (0-5); Platelet Count 222 K/mm3 (150-450); RBC Distribution Width CV 13.5 % (11.6-14.6); RBC Distribution Width SD 43.6 fl (35.1-43.9); Red Blood Count 5.12 M/mm3 (4.6-6.2); White Blood Count 6.3 K/mm3 (4.4-11.0)
[2025-08-09 11:48] LABS: PTHIN 47 pg/mL (11-61)
[2025-08-09 11:52] LABS: Cholesterol 146 mg/dL (<=200); Low Density Lipoprotein Calc. 61 mg/dL; Triglycerides 150 mg/dL; Very Low Density Lipoprotein 30 mg/dL (5-40); cholesterol:hdl ratio screen 2.47
[2025-08-09 11:53] LABS: Creatinine, Urine (random) 113.00 mg/dL (39.00-259.00); Microalbumin,Random Urine < 12.0 mg/L (<20 mg/L); Protein, Urine (Random) 11.1 mg/dL (0.0-12.0); Protein:Creat Ratio 98 mg/g CRE (0-200)
[2025-08-09 11:55] LABS: AST(SGOT) 19 U/L (<=37); Alanine Aminotransfer ALT/SGPT 11 U/L (<=46); Albumin, Serum 4.0 g/dL (3.4-4.8); Alkaline Phosphatase 97 U/L (40-129); Anion Gap 12 (5-15); BUN 41 mg/dL (4-19); BUN/Creat Ratio 27.0 RATIO (10-20); Calcium,Total 9.5 mg/dL (7.6-11.0); Carbon Dioxide 27.0 mmol/L (21.0-32.0); Chloride 101 mmol/L (98-108); Globulin 2.8 g/dL (2.2-4.2); Glucose 115 mg/dL (70-99); Potassium 4.2 mmol/L (3.3-5.1)
== END | disposition home or self-care (01) ==
LOC: LAB 09:33
PROVIDERS: PCP Family Medicine; Referring Provider Student in an Organized Health Care Education/Training Program; Visit Provider Student in an Organized Health Care Education/Training Program
DX: E11.22 Type 2 diabetes mellitus with diabetic chronic kidney disease (principal); N18.30 Chronic kidney disease, stage 3 unspecified
CPT/HCPCS: 36415; 80048; 80053; 80061; 82043; 82570; 83036; 83970; 84156; 85025

== ENCOUNTER 2025-08-21 08:00 | Outpatient (RCR) | payer SELFPAY ==
[2025-07-17 13:22] VITALS: BMI 37.3
--- NOTE | 2025-08-14 08:04 | CR.ITP_ITS ---
Exercise - Initial Assessment Physician Prescribed Exercise Modalities: SciFit Stepper and SciFit Lateral Manager Construction Nutrition - Initial Assessment Weight Mgt (Other Care) Height: 5 ft 11 in Weight:: 266 lb 8 oz BMI: 37.1 Core - Initial Assessment Hypertension Resting Blood Pressure:: 116/56 [place] [employer] Hypertension Guidelines Psychosocial - Initial Assess Psychosocial Test phq-9 Severity See PHQ-9 Score: 5 Referral to Behavioral Health PS - Interventions: Yes: Attend Stress Management Classes Exercise - 30-day Assessment Physician Prescribed Exercise Modalities: SciFit Stepper and SciFit Lateral [place] Exercise - 60-day Assessment Physician Prescribed Exercise Modalities: SciFit Stepper and SciFit Lateral Manager Construction Exercise - 90-day Assessment Physician Prescribed Exercise Modalities: SciFit Stepper and SciFit Lateral [place] Exercise - Final/Discharge Visit Date of Eval: 08/14/25 Session #:: 36 Physician Prescribed Exercise Modalities: SciFit Stepper and SciFit Lateral Manager Construction Frequency: 3x/week for 12 weeks [36 sessions] Intensity: 60-80% of age predicted maximum heart rate reserve Duration: 30 - 45 minutes Current METSs:: 3.8 Target Heart Rate:: 82-110 Maximum Heart Rate:: 90 Resting Blood Pressure: 116/56 Maximum Exercise Blood Pressure: 118/60 EKG Type: SB-NSR w/ occas mutifocal PVC's Outcomes & Goals Goals:: Verbalizes understanding of THR, RPE & goal METS by session 6, Documents in home exercise log/reports 30 min aerobic 5 day/wk by DC, Demonstrates accurate pulse taking by DC and Other additional outcome/goals: see below Intervention & Plan Exercise Program Goals: Instruct on personal THR & RPE, Instruct on MET level & personal MET goal, Show patient to take own pulse /validate performance until accurate, Instruct on home exercise and Other additional plan/int Physical Activity Home Exercise Physical Activity - Home Exercise: Safe Exercise, Warm-up, Self-monitoring, Cool-Down, Home Exercise > 30 min Daily and Sitting Time <3 hours/daily Outcomes & Goals Outcomes/Goals: Demonstrates correct Warm-up/exercise Cool-Down (S3) if = 2.5 METs, Verbalizes symptoms of exercise intolerance by Session 3 (S3), Demonstrate safe equipment use (S3) & follows exercise prescrition (6) and Other: See below Intervention & Plan Plan/Intervention: Instruct warm-up & cool-down if exercising at > 2 METs, Instruct on symptoms of exercise intolerance & actions to take, Instruct & monitor on saf, Assess intial functional capacity & safety risk and Other See below 30-day Reassessments 30 day Reassessments:: Met Reassessment Notes & Comments:: Pt has met his exercise goals. Pt is signed up for the Phase III maintenance program. Pt was given his exercise prescription on his last day of Phase II. Nutrition - 30-Day Assessment Weight Mgt (Other Care) Height: 5 ft 11 in Weight:: 266 lb 8 oz BMI: 37.1 Nutrition - 60-Day Assessment Weight Mgt (Other Care) Height: 5 ft 11 in Weight:: 266 lb 8 oz BMI: 37.1 Core - 30-Day Assessment Hypertension [place] [employer] Hypertension Guidelines Reassessment Notes & Comments:: Pt's BP's are within AHA normal limits Core - Final Assessment Visit Date of Eval: 08/14/25 Session #:: 36 Medication Compliance Preventative Medication(s):: Aspirin, NEVILLE inhibitor, Statin/lipid and Beta kalani H/O mental health issues: depression, anxiety, or addiction?: No Doesn?t believe in the benefits of treatment?: No Believes medications are unnecessary or harmful?: No Has a concern about medication side effects?: No Expresses concern over the cost of medications?: No Outcomes/Goals: Verbalizes medications,desired effect & common side effects @ DC, Pt self-reports following medication regimen, Keeps card in wallet w/medications listed by DC and Other additional outcome/goals: Interventions/plans: Instruct on medication effects & side effects, Review medication list w/patient every two weeks, Instruct importance of taking meds as ordered & assist problem solving and Other additional Tobacco Use Tobacco Use: Non-smoker Hypertension Resting Blood Pressure:: 116/56 [place] [employer] Hypertension Guidelines Peak Exercise Blood Pressure:: 118/60 Outcomes/Goals: Able to verbalize/achieve optimal blood pressure <130/80, Incorporates diet changes & exercise for blood pressure control by DC and Other additional outcomes/goals Interventions/plan: Instruct on optimal blood pressure, hypertension & medications, Instruct on effects of sodium, alcohol, stress, exercise &hypertension and Other additional plan/interventions 30 day Reassessments:: Met Reassessment Notes & Comments:: Pt's BP's are within AHA normal limits Tobacco Cessation Referral Smoking Cessation Referral:: No Individual Education/Counseling:: No Education Schedule Given:: Yes Core - 90 Day Assessment Hypertension [place] [employer] Hypertension Guidelines Reassessment Notes & Comments:: Pt's BP's are within AHA normal limits Core - 60-Day Assessment Hypertension Resting Blood Pressure:: 116/56 [place] [employer] Hypertension Guidelines Psychosocial - 30-Day Assess Referral to Behavioral Health PS - Interventions: Yes: Attend Stress Management Classes Psychosocial - 60-Day Assess Referral to Behavioral Health PS - Interventions: Yes: Attend Stress Management Classes Psychosocial - 90-Day Assess Referral to Behavioral Health PS - Interventions: Yes: Attend Stress Management Classes Psychosocial - Final Assessmen VIsit Date of Eval: 08/14/25 Session #:: 36 History of previous Mental disease:: No Psychosocial Test Tool Used:: Refresh Body QOL Cardiac and PHQ-9 Questionnaire phq-9 Severity See PHQ-9 Score: 5 Referral to Behavioral Health PS - Interventions: Yes: Attend Stress Management Classes Outcomes/Goals: See list Psychosocial Outcomes/Goals:: ID's personal stressors & 2 strategies to manage stress by discharge and Other Additional outcome/goals: Intervention/Plan: See List Interventions/Plan:: Assess stressors,coping strategies & signs of derpression on admission, Instruct/assist pt to develop coping & personal stress Mgt strategies, Refer to Behavioral Health if appropriate, Refer to Physician if appropriate, Instruct patient to recognize signs & symptoms of depression, Instruct patient to recog and Other additional plan/intervention 30-day Reassessments: 30 day Reassessments:: Met Reassessment Notes & Comments:: Pt denies any psychosocial issues at this time. Pt attended stress management classes. Nutrition - 90-Day Assessment Weight Mgt (Other Care) Height: 5 ft 11 in Weight:: 266 lb 8 oz BMI: 37.1 Nutrition - Final Assessment Visit Date of Assessment:: 08/14/25 Session #:: 36 (Nutrition score of 5) Cholesterol/Lipids (Other Core Measures) Determine presence & major risk factors that modify LDL goal: Cigarette smoking, Hypertension or hypertensive medication, Low HDL cholesterol <40 mg/dL*, Family history of premature CHD in Male < 55 years: female <65 yearsFa and Age men > 45 years; women >/= 55 years Outcomes/Goals: Pt IDs own risk factors & lifestyle modifications by Session 10, Verbalizes symptoms of angina & response by session 3., Pt independently manages and Other Additional Outcomes/Goals: Intervention/Plan: Advocate for lipid panel cholesterol medication if applicable, Instruct on personal lipid levels & lipid goals/NCEP guidelines, Instruct on cholesterol and Other additional plan/int Diabetes (Other Core Measures) Diabetes Type: Diagnosis Type II ICD-10 E11 30-day Reassessments:: Met Reassessment Notes & Comments:: Pt monitors his BS as instructed by his physician. Weight Mgt (Other Care) Height: 5 ft 11 in Weight:: 266 lb 8 oz BMI: 37.1 Diagnosis Overweight/Obesity BMI> 30% ICD-10 E66: Yes Diagnosis High BMI/Morbid Obesity BMI> 35% ICD-10 Z68: Yes Outcomes/Goals: Pt sets, maintains & shows weight loss goal & trend during rehab and Other additional outcomes/goals Intervention/Plan: Instruct on ideal BMI & set weight loss goal w/patient, Assist pt to ID & incorporate diet changes for weight loss by S9, Refer to Structured Weight Loss program as appropriate, Encourage goal of using 250- 300dcal per session for weight loss and Other additional plan/interventions 30 day Reassessments:: Progressing Reassessment Notes & Comments:: Pt lost 4 lbs this moth with us. Pt has attended nutrition classes and understands the benefits of a heart healthy low sodium diet. Healthy Eating Habits Will attend diet classes:: Yes Outcomes/Goals:: Consume diet rich in vegs,fruits,whole grain/high fiber,f omari,lean meat, Limit sat/trans fats,cholesterol & added salts & sugars and Other additional outcome/goals: Intervention/Plan:: Assess current eating habits and Other Additional plan/interventions 30-day Reassessments:: Met Reassessment Notes & Comments:: Pt has attended nutrition classes and understands the benefits of a heart healthy low sodium diet. Education Gave educational materials for:: Signs & symptoms of hypoglycemia, Signs & symptoms of hyperglycemia, Relate diabetes to coronary artery disease and Healthy eating
[2025-08-14 08:16] VITALS: BP 116/56; BMI 37.1
== END 2025-08-22 23:59 ==
LOC: CR 08:00
PROVIDERS: PCP Family Medicine
DX: Z00.00 Encounter for general adult medical examination without abnormal findings (principal)